=== PATIENT | male | born 1940 | race Caucasian/White ===

== ENCOUNTER → 2017-07-30 | Outpatient (CLI) | payer OTHER ==
[~2017-07-30] MED LIST: ASPI325T39 PO; CHERRY PACK PO; CLB/200 PO; HYDR-5688 PO; OXYC20TA50 PO; REGADENOSON 0.4 MG/5 ML SYR ONE; SENNTAB23 PO; WHEAPOW13 PO
--- NOTE | 2017-07-31 09:18 | MYOCARDIAL PERFUSION SCAN ---
REFERRING PHYSICIAN: Mark Anthony Andrade DO REASON FOR STUDY: Aortic stenosis, atrial fibrillation, shortness of breath. DESCRIPTION OF PROCEDURE: The patient underwent a standard Lexiscan stress ECG. The final report is under separate cover. TECHNIQUE: For the stress portion of the study, 32.4 mCi of technetium-99m Cardiolite IV was injected at 11:25 a.m. on 07/30/2017. Thirty minutes following the injection, imaging of the heart was performed in multiple projections. For the rest portion of the study 10.3 mCi of technetium-99m Cardiolite was injected IV at 0925 a.m. One hour following the injection, imaging of the heart was performed using the same projections. The raw data reveals mild motion artifact on the rest images. There also appears to be extensive diaphragmatic attenuation. Perfusion images, there is a small in size, mild in intensity, distal anterior apical defect consistent with a mild degree of distal LAD ischemia. Quantitative analysis was performed. The sum stress score is 2. The summed difference score was 0 suggesting a relatively normal study. Gated SPECT was performed. The left ventricle is dilated at 104, with end-diastolic volume of 104 mL. The calculated ejection fraction was 51%. There were no obvious regional wall motion abnormalities. Visually there was no obvious transient ischemic dilatation. IMPRESSION: 1. Small in size, mild in intensity, distal anterior apical defect consistent with a mild degree of distal LAD ischemia. 2. Dilated left ventricle with an end-diastolic volume of 104 mL with low normal left ventricular systolic function and a calculated ejection fraction of 51%.
== END | disposition home or self-care (01) ==
LOC: C.NUCL 08:52
PROVIDERS: ATTEND Internal Medicine Cardiovascular Disease
DX: I35.0 Nonrheumatic aortic (valve) stenosis (principal); I48.91 Unspecified atrial fibrillation

== ENCOUNTER 2017-10-08 06:16 | Inpatient (IN) | payer OTHER ==
[2017-09-03 08:00] VITALS: BMI 43.0
--- NOTE | 2017-09-04 09:00 | PAT Medication Instructions ---
Service Date Sep 04, 2017. Current Home Medication List Apixaban (Eliquis), 5 MG PO BID Hydrocodone/Acetaminophen 5MG/325MG (Belford 5MG/325MG), 1-2 TABLETS PO Q4 PRN for Pain Lisinopril (Zestril), 5 MG PO QAM Metformin Hcl (Glucophage), 500 MG PO BID Metoprolol Succinate (Toprol Xl), 50 MG PO HS Multivitamin (Multivitamin), 1 TAB PO QAM Medication Instructions For Your Scheduled Surgery -Follow the instructions from Dr. Andrade and Dr. Rodríguez: Apixaban (Eliquis), 5 MG PO BID - Hold the following medications the morning of surgery: Lisinopril (Zestril), 5 MG PO QAM Metformin Hcl (Glucophage), 500 MG PO BID Multivitamin (Multivitamin), 1 TAB PO QAM - Take the following medications the morning of surgery with a sip of water: Hydrocodone/Acetaminophen 5MG/325MG (Belford 5MG/325MG), 1-2 TABLETS PO Q4 PRN for Pain (if needed, can be taken up t four hours before surgery) - Take the following medications as scheduled the night before surgery: Hydrocodone/Acetaminophen 5MG/325MG (Belford 5MG/325MG), 1-2 TABLETS PO Q4 PRN for Pain (if needed) Metformin Hcl (Glucophage), 500 MG PO BID Metoprolol Succinate (Toprol Xl), 50 MG PO HS If you have any questions please call us at [phone] or [phone] or [phone]
--- NOTE | 2017-09-04 10:06 | DIAGNOSTIC IMAGING REPORT ---
CHEST 2 VIEWS ROUTINE HISTORY: 77 years-old Male PAT preoperative exam. No acute chest complaints COMPARISON: Chest radiograph 06/09/2013 TECHNIQUE: PA and lateral views of the chest FINDINGS: Cardiac silhouette is again mildly enlarged. Mild pulmonary vascular congestion without overt pulmonary edema. There is no pneumothorax, pleural effusion, or focal airspace consolidation. Linear subsegmental left basilar opacities suggest atelectasis or scarring. Degenerative changes of the shoulders and spine. IMPRESSION: No acute process. The above report was generated using voice recognition software. It may contain grammatical, syntax or spelling errors. Electronically signed by: Jose Francisco Adkins M.D. 09/04/2017 10:04 AM Dictated Date/Time: 09/04/2017 10:03 AM
[2017-09-04 10:24] LABS: BASO % 0.3 %; BASO ABS # 0.02 K/uL (0-0.2); EOS % 1.4 %; HEMATOCRIT 43.4 % (42-52); HEMOGLOBIN 14.8 g/dL (14.0-18.0); IG# 0.01 K/uL (0.00-0.02); LYMPH % 39.5 %; MEAN CELL VOLUME 92.3 fL (80-100); MEAN CORPUSCULAR HEMOGLOBIN 31.5 pg (25-34); MEAN CORPUSCULAR HGB CONC 34.1 g/dl (32-36); MEAN PLATELET VOLUME 9.5 fL (7.4-10.4); MONO ABS # 0.71 K/uL (0.11-0.59); NEUT % 48.7 %; NEUT ABS # 3.44 K/uL (1.4-6.5); PLATELET COUNT 215 K/uL (130-400); RED CELL DISTRIBUTION WIDTH SD 44.1 fL (36.4-46.3); WHITE BLOOD COUNT 7.08 K/uL (4.8-10.8)
[2017-09-04 10:33] LABS: CALCIUM 9.3 mg/dl (8.5-10.1); CREATININE 1.07 mg/dl (0.60-1.40); POTASSIUM 4.7 mmol/L (3.5-5.1)
[2017-09-04 10:37] LABS: PTT PATIENT 31.5 SECONDS (21.0-31.0)
--- NOTE | 2017-10-07 09:45 | HISTORY & PHYSICAL EXAMINATION ---
DATE OF ADMISSION: 10/08/2017 CHIEF COMPLAINT: Primary osteoarthritis of the left shoulder. HISTORY OF PRESENT ILLNESS: Luís is a pleasant 77-year-old male who has been dealing with a several year history of increasing left shoulder pain. X-rays and clinical examination have been diagnostic for primary osteoarthritis of the left shoulder. He has had injections in the past, which have helped, but unfortunately they wear off quickly. He has limited range of motion of his shoulder at this point. He is having more and more pain. He is having trouble sleeping at night. 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 He has elected to proceed with a left total shoulder arthroplasty. PAST MEDICAL HISTORY: Significant for vague heart disease without any history of DE, arrhythmia, or stent placement. Past medical history is also significant for [id number] diabetes and hypertension. PAST SURGICAL HISTORY: Significant for carpal tunnel release and bilateral total knee arthroplasties by Dr. Molina in 2013. ALLERGIES: None. MEDICATIONS: Include lisinopril, metformin, Eliquis, metoprolol, and Vicodin for pain. FAMILY HISTORY: Denies. SOCIAL HISTORY: He is , has 5 kids. Never drinks. He is very active. REVIEW OF SYSTEMS: He complains of left shoulder pain. All other pertinent review of systems are negative. PHYSICAL EXAMINATION: GENERAL: He is awake, alert, and oriented x3. He is in no apparent distress. He is very pleasant. HEENT: Pupils are equal, round, reactive to light. Extraocular motion intact. Oral mucosa is pink and moist. HEART: Regular rate per radial pulse. LUNGS: Maren symmetrically bilaterally with no audible breath sounds. ABDOMEN: Soft, nontender, nondistended. MUSCULOSKELETAL: On physical examination of the left shoulder, he has limited range of motion about 60 degrees of forward elevation and 30 degrees of abduction. Passive I can get him little further, but he has a lot of crepitus through range of motion. He has 5/5 muscle strength to full can test and external rotation. Negative belly press test. He has a lot of tenderness to palpation of the anterior glenohumeral joint line. IMAGING DATA: X-rays of the left shoulder do show advanced osteoarthritis with flattening of the humeral head and a little bit of posterior wear on the glenoid. There is joint space narrowing and [id number] articulation. IMPRESSION: Primary osteoarthritis of the left shoulder. PLAN: We will proceed with a left total shoulder arthroplasty. Postoperatively, he will be placed in an arm sling and kept overnight at the hospital for postoperative medical management. I plan to discharge him to home the following day with [facility]. FABRICIO
[~2017-10-08] VITALS: Ht 165.1 cm; Wt 119.0 kg
[2017-10-08] VITALS (10 sets, daily range): BP systolic 93–159; BP diastolic 60–86; PULSE 64–81; TEMP 36.3–36.8; O2SAT 91–96; Ht 165.1 cm; Wt 119.0 kg
[~2017-10-08 06:16] MED LIST changes: +ACETAMINOPHEN 500 MG TAB PO SCH; +APIX1TAB3 PO; -ASPI325T39 PO; +CEFAZOLIN 2000MG IV PUSH 15 ML IV SCH; -CHERRY PACK PO; -CLB/200 PO; +FAMOTIDINE 20 MG TAB PO SCH; +GABAPENTIN 300 MG CAP PO SCH; +GLC/500 PO; +LACTATED RINGER'S 1000ML 1,000 ML IV SCH; +LACTATED RINGER'S 1000ML IV SCH; +LISI-729 PO; +METO-217 PO; +MULT-506 PO; -OXYC20TA50 PO; -REGADENOSON 0.4 MG/5 ML SYR ONE; +ROPIVACAINE 5MG/ML 30 ML 150 MG, BUPIVACAINE 0.5% MPF INJ 30 ML, EpINEphrine HCL INJ 0.... INFIL SCH; -SENNTAB23 PO; -WHEAPOW13 PO
--- NOTE | 2017-10-08 06:39 | History & Physical Bridge Note ---
H&P Re-Evaluation Bridge Note: I have examined the patient, reviewed the History & Physical and in the interval since the performance of the History & Physical I have noted the following changes of clinical significance: No changes noted
[2017-10-08] MEDS ORDERED: ROPIVACAINE 0.5% 5 MG/ML 30 ML VIAL ONE (06:43)
[2017-10-08] MEDS ORDERED: EpINEphrine INJ 1MG/ML AMP 1 MG/ML AMP ONE (06:43)
[2017-10-08] MEDS ORDERED: DEXAMETHASONE SOD INJ 4 MG/ML VIAL ONE (06:43)
[2017-10-08] MEDS ORDERED: MIDAZOLAM HCL 1 MG/ML 2ML VIAL ONE ×2 (07:56→09:10)
[2017-10-08] MEDS ORDERED: FENTANYL CITRATE INJ 50 MCG/1 ML 2 ML VIAL ONE (07:56)
[2017-10-08] MEDS ORDERED: FENTANYL CITRATE INJ 50 MCG/1 ML 2 ML VIAL IV PRN (08:30)
[2017-10-08] MEDS ORDERED: EpHEDrine SULFATE INJ 50 MG/ML AMP IV PRN (08:30)
[2017-10-08] MEDS ORDERED: ATROPINE SULFATE 0.1 MG/ML 5ML SYR IV PRN (08:30)
[2017-10-08] MEDS ORDERED: ONDANSETRON INJ 2 MG/ML 2 ML VIAL IV PRN ×2 (08:30→11:00)
[2017-10-08] MEDS ORDERED: PROMETHAZINE HCL INJ 6.25 MG in SODIUM CHLORIDE 0.9% 50ML 50 ML IV PRN (08:30)
[2017-10-08] MEDS ORDERED: BACITRACIN 50000 UNIT VIAL ONE (09:06)
[2017-10-08] MEDS ORDERED: ORTHO JOINT ANESTHETIC ONE (09:06)
[2017-10-08] MEDS ORDERED: ESMOLOL HCL 10 MG/ML 10 ML VIAL ONE (09:30)
[2017-10-08] MEDS ORDERED: PHENYLEPHRINE HCL INJ 10 MG/ML VIAL ONE (10:17)
[2017-10-08] MEDS ORDERED: PHENYLEPHRINE 100MCG/ML 5ML SYR ONE (10:17)
[2017-10-08] MEDS ORDERED: GLYCOPYRROLATE INJ 0.2 MG/ML VIAL ONE (10:17)
[2017-10-08] MEDS ORDERED: METOPROLOL TARTRATE 1 MG/ML VIAL ONE (10:17)
[2017-10-08] MEDS ORDERED: NEOSTIGMINE METHYLSULFATE 5 MG/5 ML SYR ONE (10:17)
[2017-10-08] MEDS ORDERED: LIDOCAINE HCL 2% 2 ML VIAL (20MG/ML) ONE (10:17)
[2017-10-08] MEDS ORDERED: PROPOFOL IV EMULSION 10 MG/ML 20 ML VIAL ONE ×2 (10:17→13:53)
[2017-10-08] MEDS ORDERED: ONDANSETRON INJ 2 MG/ML 2 ML VIAL ONE (10:17)
[2017-10-08] MEDS ORDERED: ROCURONIUM BROMIDE 10 MG/ML 5 ML VIAL ONE (10:38)
--- NOTE | 2017-10-08 10:58 | [facility] Post Operative Brief Note ---
Immediate Operative Summary Operative Date Oct 08, 2017. Pre-Operative Diagnosis Primary osteoarthritis left shoulder Post-Operative Diagnosis Primary osteoarthritis left shoulder with rotator cuff tear Procedure(s) Performed Left Reverse Total Shoulder Arthroplasty Surgeon Dr. Rodríguez Top And Seat Cover Fitter Surgeon(s) Cem Ordaz PA-C Estimated Blood Loss 250cc Findings Consistent with Post-Op Diagnosis Specimens A. Left humeral head Anesthesia Type General Regional
[2017-10-08] MEDS ORDERED: NALOXONE HCL 0.4 MG/1 ML VIAL/CARP IV PRN (11:00)
[2017-10-08] MEDS ORDERED: MAGNESIUM HYDROXIDE SUSP 30 ML UDC PO PRN (11:00)
[2017-10-08] MEDS ORDERED: METOCLOPRAMIDE HCL INJ 5 MG/ML 2 ML VIAL IV PRN (11:00)
[2017-10-08] MEDS ORDERED: GLUCOSE 40% GEL 15 GM TUBE PO PRN (11:00)
[2017-10-08] MEDS ORDERED: DEXTROSE 50% 50 ML SYR IV PRN (11:00)
[2017-10-08] MEDS ORDERED: GLUCAGON FOR INJ 1 MG VIAL SQ PRN (11:00)
[2017-10-08] MEDS ORDERED: SOD PHOSPHATE/SOD BIPHOSPHATE ENEMA 132 ML BTL PR PRN (11:00)
[2017-10-08] MEDS ORDERED: MoRPHine SULFATE 4 MG/ML 1 ML CARP\\VIAL IV PRN (11:00)
[2017-10-08] MEDS ORDERED: GLUCOSE 10 TABS/TUBE PO PRN (11:00)
[2017-10-08] MEDS ORDERED: CARBOHYDRATES FOR HYPOGLYCEMIA PO PRN (11:00)
[2017-10-08] MEDS ORDERED: BISACODYL 10 MG SUPP PR PRN (11:00)
--- NOTE | 2017-10-08 11:51 | Discharge Instructions ---
Discharge Instructions Date of Service Oct 08, 2017. Admission Reason for Admission: Left Shoulder Degenerative Joint Disease Discharge Discharge Diagnosis / Problem: Left Reverse Total Shoulder Discharge Goals Goal(s): Decrease discomfort, Improve function Activity Recommendations Activity Limitations: as noted below . Instructions / Follow-Up Instructions / Follow-Up Activity and Therapy Recommendations: * Wear your sling for 6 weeks, unless otherwise instructed. You may remove your sling to shower and to dress, but otherwise, you should be in your sling at all times, including while sleeping * The shoulder replacement is very stable and you can use your hand while in the sling * Physical Therapy should start about 3-5 days from your day of surgery. Therapy will last about 8-12 weeks * You were shown a series of exercises in the hospital. Do these exercises daily including the exercises you were shown in physical therapy. Medications: * Narcotic You will likely be sent home from the hospital with a prescription for the narcotic pain medication that worked best throughout your stay. * Other medications may be prescribed for specific circumstances. If you have any questions, please call the office at . * Resume previous home medications unless otherwise instructed Dressing Care: If the incision is not draining then you may leave the ryan open to air. If there is a little bit of drainage or if the ryan are getting stuck on your clothing then cover the incision with a dry dressing. The ryan will be removed at your 2 week follow-up appointment. Showering: You may shower 5 days from the day of surgery. Let the soapy shower water run over the ryan and pat them dry. Do not scrub or soak the incision. Things To Watch For: * Drainage from the incision site that occurs more than one week after your surgery. * Increased redness at the incision site. * Fever above 102 degrees Fahrenheit. * Unusual chest pain or shortness of breath. * Call [facility] at with any of the above problems Follow-Up Visit: Follow-up with Dr. Rodríguez 2 weeks after your day of surgery. An appointment was probably scheduled when you signed-up for surgery in the office. If you have any questions call Office Instructions: More detailed instructions as well as Frequently Asked Questions were provided in a folder by our office when you signed-up for surgery. Please review these instructions when you get home. If you have any further questions or concerns, please feel free to call the office at [phone] Current Hospital Diet Patient's current hospital diet: Regular Diet Discharge Diet Recommended Diet: Regular Diet Procedures Procedures Performed: Left Reverse Total Shoulder Arthroplasty Pending Studies Studies pending at discharge: no Medical Emergencies . Who to Call and When: Medical Emergencies: If at any time you feel your situation is an emergency, please call 911 immediately. . Non-Emergent Contact Non-Emergency issues call your: Surgeon Call Non-Emergent contact if: wound has increased drainage, wound has increased redness . "Provider Documentation" section prepared by Carlos Rodríguez. .
[2017-10-08] MEDS ORDERED: PHARMACY GLYCEMIC MGMT CONSULT PRN (12:03)
--- NOTE | 2017-10-08 12:33 | DIAGNOSTIC IMAGING REPORT ---
ADDENDUM Second sentence of the impression should read: When the patient is able, CT study of the proximal to mid humerus is suggested. Electronically signed by: Jaiden Trivedi M.D. 10/08/2017 12:36 PM Dictated Date/Time: 10/08/2017 12:36 PM ORIGINAL REPORT L SHOULDER MIN 2 VIEWS ROUTINE CLINICAL HISTORY: Post shoulder surgery COMPARISON: None. DISCUSSION: Anatomic alignment post postoperative evaluation linear lucency mid humeral shaft medially distal to the humeral metallic prosthetic. Possibility of technical artifact versus nondisplaced cortical fracture must be considered. When the patient is able, CT study of this region is suggested. There is good contact between all remaining components of the study between metallic and bony components. IMPRESSION: Overlap artifact versus nondisplaced linear cortical fracture mid left humeral shaft immediately distal to the humeral prosthetic. When the patient is able, paste CT study of the proximal to mid humerus is suggested. Note: This study will be called to the floor. The above report was generated using voice recognition software. It may contain grammatical, syntax or spelling errors. Electronically signed by: Jaiden Trivedi M.D. 10/08/2017 12:31 PM Dictated Date/Time: 10/08/2017 12:24 PM
--- NOTE | 2017-10-08 13:24 | OPERATIVE REPORT ---
DATE OF OPERATION: 10/08/2017 PREOPERATIVE DIAGNOSIS: Primary osteoarthritis of the left shoulder. POSTOPERATIVE DIAGNOSIS: Primary osteoarthritis of the left shoulder with a rotator cuff tear. PROCEDURE: Left reverse total shoulder arthroplasty. SURGEON: Dr. Carlos Rodríguez. WORLD HISTORY TEACHER: Cem Ordaz PA-C, whose assistance was necessary for retraction and closure. ANESTHESIA: General with a left interscalene nerve block. COMPLICATIONS: None. CONDITION: Stable to PACU. IMPLANTS USED: I used a [employer] comprehensive reverse left shoulder arthroplasty system with a size 14 mini pressfit stem, a 28 mm baseplate, a 41 mm standard eccentric glenosphere, a 30 mm central screw, 2 peripheral locking screws and a 41 mm +3 polyethylene bearing on a 44 mm humeral tray. No cement was used during the case. INDICATIONS: Luís is a pleasant 77-year-old male who presented to my office with chronic increasing left shoulder pain. X-rays and clinical examination were diagnostic for primary osteoarthritis of the left shoulder. After failing conservative treatment, he elected to undergo a left total shoulder arthroplasty with possible reverse. DESCRIPTION OF PROCEDURE: On 10/08/2017, he arrived at [facility] for the above procedure. He was seen in the preop holding area and the operative extremity was identified and signed. He was given a preoperative antibiotic, a left interscalene nerve block and taken back to the operating room, laid on the table in supine position and put under general anesthesia. He was put into the beachchair position. The left shoulder was prepped and draped in sterile fashion. Time-out was done. The patient's operative extremity was properly identified. A deltopectoral approach was used. Dissection was taken down through the fascia and the anterior shoulder was exposed. The biceps tendon was absent and had been traumatically tenotomized. The subscapularis was mostly torn. I was able to elevate it mostly off the lesser tuberosity. There was about a 90% partial tear of the articular side of the supraspinatus. The cuff tissue was very thin. At this point, I decided to proceed with reverse total shoulder arthroplasty. The proximal humerus was subluxated out of the wound. A canal finding reamer was sent down the center of the humeral canal. Sequential reaming up to a size 14 reamer was done. Off that reamer, a proximal humeral resection guide was placed and the proximal humerus was resected at 135 degrees of inclination and 25 degrees of retroversion. The head was removed. Surrounding osteophytes were removed. The glenoid was then exposed. Time was spent doing a complete circumferential capsular and labral release. The [employer] signature guide was then snapped on to the anterior glenoid and a guide pin was placed for the reverse total shoulder arthroplasty hole. A 28 mm base plate reamer was then used and the glenoid was reamed. A 28 mm baseplate was then impacted into place. A 30 mm central screw was placed followed by superior and inferior locking screws. A 41 mm eccentric standard glenosphere was then impacted into place. The proximal humerus was then exposed. Sequential broaching up to size 14 broach was done. A standard humeral tray was trialed. The shoulder felt a little bit loose. A +3 humeral tray was then trialled and it gave much better stability. The shoulder was then dislocated. The broach was removed. The final size 14 press-fit stem was then impacted into place. The 41 mm +3 poly was snapped onto the humeral tray and the ring lock mechanism was engaged. The humeral tray was then impacted on the humeral stem. The shoulder was reduced, brought through a full range of motion and felt to be stable. The subscapularis was then tenodesed back to the lesser tuberosity with transosseous FiberWire sutures. Surrounding soft tissues were injected with 100 mL of an orthopedic pain control cocktail. The wound was then irrigated with 3 liters normal saline solution with bacitracin. The axillary nerve was palpated. The shoulder was brought through a full range of motion and felt to be stable. Hemostasis was controlled. The skin was then closed with 2-0 Vicryl, 3-0 V-Loc suture and ryan. He was then placed in a soft dressing and a regular arm sling. He was then extubated, transferred to [facility] and taken to the postanesthesia care unit in stable condition. He tolerated the procedure well. I attest to the content of the Intraoperative Record and any orders documented therein. Any exception s are noted below.
--- NOTE | 2017-10-08 13:33 | Anesthesiology Progress Note ---
Anesthesia Post Op Note Date & Time Oct 08, 2017 at 13:33 Vital Signs Pain Intensity: 0 Vital Signs Past 12 Hours Date Time Temp Pulse Resp B/P (MAP) Pulse Ox O2 Delivery O2 Flow Rate FiO2 10/08/17 13:15 36.4 64 18 106/67 (80) 93 Nasal Cannula 3.0 10/08/17 12:45 36.8 71 18 93/60 (71) 93 Nasal Cannula 3.0 10/08/17 12:45 93 Nasal Cannula 3.0 10/08/17 12:45 93 Nasal Cannula 3.0 10/08/17 12:36 36.4 66 20 106/72 (82) 100 Nasal Cannula 4 10/08/17 12:20 36.4 68 23 98/65 (80) 97 Nasal Cannula 4 10/08/17 12:10 36.1 68 23 104/67 99 Nasal Cannula 4 10/08/17 12:00 63 13 95/64 100 Oxymask 10 10/08/17 11:50 73 23 107/68 100 Oxymask 10 10/08/17 11:40 72 17 94/65 99 Oxymask 10 10/08/17 11:30 75 19 114/62 99 Oxymask 10 10/08/17 11:22 36.6 74 20 127/87 95 Oxymask 10 10/08/17 06:40 36.6 76 20 159/86 94 Room Air Notes Mental Status: alert / awake / arousable, participated in evaluation Pt Amnestic to Procedure: Yes Nausea / Vomiting: adequately controlled Pain: adequately controlled Airway Patency, RR, SpO2: stable & adequate BP & HR: stable & adequate Hydration State: stable & adequate Anesthetic Complications: no major complications apparent Block working well in pacu
[2017-10-08] MEDS: TRANEXAMIC ACID INJ 1,000 MG x 2 Bags IV SCH ×4 (13:42→13:44)
[2017-10-08] MEDS ORDERED: INSULIN GLARGINE SOLOSTAR 100 UNITS/ML 3 ML PEN SC ONE ×2 (14:00→21:00)
--- NOTE | 2017-10-08 14:16 | Pharmacy Progress Note ---
Pharmacy Glycemic Short Note 2 Date of Service Oct 08, 2017. OUTPATIENT ANTIDIABETIC REGIMEN: * Metformin 500 mg BID ASSESSMENT: * 77 yo male admitted for elective left should arthroplasty, POD #0, unknown outpatient control * Received dexamethasone 4 mg IV x 1 in OR, anticipate increased insulin resistance * Will give 1x lantus dose stress of 2- 40 units and add sliding scale tonight for additional coverage * Start novolog sliding scale weight based stress of 2 * Accuchecks added at 0000,0400 for additional coverage PLAN FOR INPATIENT GLYCEMIC CONTROL: * Hold outpatient oral diabetes medications * Basal insulin * Lantus 40 units x 1 then HS sliding scale as follows: * <GD=497: no dose * 140-180: 10 units * >180: 20 units * Bolus insulin * NovoLog per scale ACHS or Q6hrs while NPO * Goal Range: Low 120 mg/dL - High 160 mg/dL * Correction Factor: 20 mg/dL/unit * Nutritional / Prandial insulin per carb ratio of 1 unit per 10 grams CHO consumed
[2017-10-08] MEDS: ACETAMINOPHEN IV 1,000 MG in EMPTY BAG 0 ML IV SCH ×2 (14:17→21:33)
[2017-10-08] MEDS: CEFAZOLIN IV 2,000 MG in SYRINGE 0 ML IV SCH ×2 (14:34→21:33)
[2017-10-08] MEDS: POTASSIUM CHLORIDE INJ 10 MEQ in SODIUM CHLORIDE 0.9% 1000ML 1,000 ML IV SCH (14:38)
[2017-10-08] MEDS: INSULIN ASPART 100 UNITS/ML 3 ML PEN SC SCH ×3 (15:02→21:36)
[2017-10-08] MEDS ORDERED: METOPROLOL SUCC 50MG EXT REL TAB PO SCH (21:00)
[2017-10-08] MEDS ORDERED: SENNA 8.6 MG TAB PO SCH (21:00)
[2017-10-08] MEDS: APIXABAN 5 MG TAB PO SCH (21:28)
[2017-10-08] MEDS: DOCUSATE SODIUM 100 MG CAP PO SCH (21:28)
[2017-10-08] MEDS: OXYCODONE HCL IR 5 MG TAB (IMMEDIATE RELEASE) PO PRN (21:29)
[2017-10-09 00:05] VITALS: O2SAT 96
[2017-10-09] MEDS: POTASSIUM CHLORIDE INJ 10 MEQ in SODIUM CHLORIDE 0.9% 1000ML 1,000 ML IV SCH ×2 (00:29→09:36)
[2017-10-09 03:07] VITALS: BP 134/80; PULSE 78; TEMP 36.3; O2SAT 94
[2017-10-09] MEDS: INSULIN ASPART 100 UNITS/ML 3 ML PEN SC SCH ×3 (04:00→08:45)
[2017-10-09] MEDS: ACETAMINOPHEN IV 1,000 MG in EMPTY BAG 0 ML IV SCH (06:13)
[2017-10-09] MEDS: OXYCODONE HCL IR 5 MG TAB (IMMEDIATE RELEASE) PO PRN ×2 (06:20→10:21)
[2017-10-09 06:43] LABS: HEMATOCRIT 40.8 % (42-52); HEMOGLOBIN 13.8 g/dL (14.0-18.0); MEAN CELL VOLUME 92.7 fL (80-100); MEAN CORPUSCULAR HEMOGLOBIN 31.4 pg (25-34); MEAN CORPUSCULAR HGB CONC 33.8 g/dl (32-36); MEAN PLATELET VOLUME 9.8 fL (7.4-10.4); PLATELET COUNT 200 K/uL (130-400); RED CELL DISTRIBUTION WIDTH CV 12.9 % (11.5-14.5); RED CELL DISTRIBUTION WIDTH SD 43.3 fL (36.4-46.3); WHITE BLOOD COUNT 12.07 K/uL (4.8-10.8)
[2017-10-09 06:54] VITALS: BP 164/93; PULSE 81; TEMP 36.5; O2SAT 92
[2017-10-09] MEDS ORDERED: RXC5 PO (07:06)
[2017-10-09 07:25] LABS: CALCIUM 8.7 mg/dl (8.5-10.1); CREATININE 1.05 mg/dl (0.60-1.40)
--- NOTE | 2017-10-09 07:25 | DISCHARGE SUMMARY ---
DISCHARGE DIAGNOSIS: Primary osteoarthritis of the left shoulder with unexpected rotator cuff tear. PROCEDURE: Left reverse total shoulder arthroplasty on 10/08/[address] Carlos Rodríguez. DISCHARGE INSTRUCTIONS: 1. Oxycodone 5-10 mg every 4 hours as needed for pain. 2. Eliquis 5 mg twice a day. 3. Zestril 5 mg daily. 4. Glucophage 500 mg twice a day. 5. Toprol 50 mg at night. 6. Daily multivitamin. 7. Left arm sling for 6 weeks. 8. Follow up with Dr. Rodríguez in 2 weeks. 9. Call the office of Dr. Rodríguez with any questions or concerns. HOSPITAL COURSE: Luís is a pleasant 77-year-old male who presented to my office with chronic increasing left shoulder pain. X-rays were diagnostic for primary osteoarthritis of the left shoulder. After failing conservative treatment, he elected to undergo a reverse left shoulder arthroplasty. On 10/08/2017, he arrived at [facility] and underwent a reverse shoulder arthroplasty without complications. I was not expecting to see the rotator cuff tear that I saw during the procedure. Postoperatively, he was placed in an arm sling and discharged to general orthopedic floor. His hospital course was uneventful. On postop day #1, his H and H was stable at 13.8 and 40.8. He was seen by physical therapy and able to do hand, wrist, elbow and pendulum exercises. His pain was well controlled. He was subsequently discharged to home with [facility] and the above instructions. To note, the postoperative x-rays did show a fracture line at the base of the prosthesis. I discussed this with him and his at bedside. It is not going to change his postop recovery except for the fact, I am going to keep him in a sling for 6 weeks instead of 3 weeks. Otherwise, he can still start with physical therapy this week.
--- NOTE | 2017-10-09 07:45 | PROGRESS NOTE ---
DATE: 10/09/2017 CHIEF COMPLAINT: Status post reverse left shoulder arthroplasty postop day #1 in progress. SUBJECTIVE: Luís was seen and examined at bedside today. Overall, he is doing fairly well. He says he feels the block is wearing off some, but he is not having much pain. He was able to get some sleep last night, has no complaints. PHYSICAL EXAMINATION: LEFT SHOULDER: The dressing is clean and dry. He is wearing a sling as instructed. His radial, median and ulnar nerves were checked and intact at his wrist. His axillary nerve was not checked. VITAL SIGNS: All stable on room air. GENERAL: He is voiding on his own. DATA: He has an H and H today of 13.8 and 40.8. His glucose is 130. X-RAYS: X-rays of the left shoulder show the prosthesis to be in anatomic alignment. However, there is a slight fracture line longitudinally at the base of the prosthesis. IMPRESSION: Status post left reverse shoulder arthroplasty. PLAN: At this point, he is doing as well as expected. We will keep him on oxycodone for pain control. He will be seen by physical therapy today to do hand, wrist, elbow and pendulum exercises. He can be discharged to home later today with [facility]. I did talk to both he and his about the fracture seen on x-ray. I am going to keep him in a sling for 6 weeks instead of 3 weeks, but otherwise he is not going to change his postoperative recovery. The implant is stable and this should heal just fine.
[2017-10-09] MEDS ORDERED: INSULIN GLARGINE SOLOSTAR 100 UNITS/ML 3 ML PEN SC ONE (08:00)
[2017-10-09 08:24] VITALS: BP 164/93; PULSE 81; TEMP 36.5; O2SAT 92
[2017-10-09] MEDS: APIXABAN 5 MG TAB PO SCH (08:37)
[2017-10-09] MEDS: DOCUSATE SODIUM 100 MG CAP PO SCH (08:37)
[2017-10-09] MEDS ORDERED: LISINOPRIL 5 MG TAB PO SCH (09:00)
[2017-10-09] MEDS ORDERED: MULTIVITAMIN TAB PO SCH (09:00)
== END 2017-10-09 10:53 | disposition home health service (06) | DRG 483 ==
LOC: C.ACU 06:16 → C.3E 11:00 → ENRESERV 12:03
PROVIDERS: ADMIT Orthopaedic Surgery; ATTEND Orthopaedic Surgery
PROC: 0RRK00Z Replacement of Left Shoulder Joint with Reverse Ball and Socket Synthetic Substitute, Open Approach (ICD-10-PCS; principal; 2017-10-08 09:00)
DX: M19.012 Primary osteoarthritis, left shoulder (principal); M96.622 Fracture of humerus following insertion of orthopedic implant, joint prosthesis, or bone plate, left arm; S46.012A Strain of muscle(s) and tendon(s) of the rotator cuff of left shoulder, initial encounter; E11.9 Type 2 diabetes mellitus without complications; I11.9 Hypertensive heart disease without heart failure; Z79.899 Other long term (current) drug therapy; Z79.84 Long term (current) use of oral hypoglycemic drugs; Z79.01 Long term (current) use of anticoagulants; Z79.891 Long term (current) use of opiate analgesic; Z96.653 Presence of artificial knee joint, bilateral; X58.XXXA Exposure to other specified factors, initial encounter; Y92.239 Unspecified place in hospital as the place of occurrence of the external cause; Y83.1 Surgical operation with implant of artificial internal device as the cause of abnormal reaction of the patient, or of later complication, without mention of misadventure at the time of the procedure; Y99.8 Other external cause status

== ENCOUNTER 2019-04-06 06:30 | Observation (INO) ==
[2019-04-06] MEDS ORDERED: HEPARIN (PORCINE) 1000 UNIT/ML 10 ML (CATH LAB USE ONLY) ONE (08:19)
[2019-04-06] MEDS ORDERED: NiCARDipine HCL INJ 2.5 MG/ML 10 ML AMP ONE (08:19)
[2019-04-06] MEDS ORDERED: MIDAZOLAM HCL 1 MG/ML 2ML VIAL ONE ×2 (08:20→09:17)
[2019-04-06] MEDS ORDERED: NITROGLYCERIN/D5W 100MCG/ML 20ML SYR ONE (08:20)
[2019-04-06] MEDS ORDERED: fentaNYL citrate 100 MCG/2 ML VIAL ONE (08:20)
--- NOTE | 2019-04-06 08:22 | History & Physical Bridge Note ---
Date of Service April 06, 2019 History & Physical Bridge Note I have examined the patient, reviewed the History & Physical and in the interval since the performance of the History & Physical I have noted the following changes of clinical significance: no changes noted
--- NOTE | 2019-04-06 08:22 | Pre Anesthesia Assessment ---
Date of Service April 06, 2019 Pre Sedation Assessment Vital Signs Temp Pulse Resp BP Pulse Ox 04/06/19 07:07 97.7 F 82 16 172/109 H 96 Cardiovascular + irregularly irregular Respiratory normal respiratory effort, lungs clear to auscultation Pre-Sedation Airway Assessment Smoking Status: Never smoker Hx Sleep Apnea: No Short, Thick Neck: Yes Thyromental Distance: < 3.5 Finger Breadths Oral Cavity: + Dentures Mallampati Class: III ASA: ASA3 NPO Status Date of Last Intake of Fluids: 04/05/19 Time of Last Intake of Fluids: 19:00 Date of Last Intake of Solid Food: 04/05/19 Time of Last Intake of Solid Foods: 19:00 Procedure Planning Contraindications for Sedation: none Current Medications Reviewed: Yes Notes The planned sedation has been discussed with the patient. Informed Consent was obtained. I have identified the patient, determined the appropriateness of sedation and have assessed the patient immediately prior to the procedure. All medicine(s) and interventions are by my order.
[2019-04-06 08:36] LABS: iSTAT Creatinine 0.9 mg/dl (0.6-1.3); iSTAT Ionized Calcium 1.26 mmol/l (1.12-1.32); iSTAT Potassium 5.1 mEq/L (3.3-5.0)
[2019-04-06] MEDS ORDERED: ATROPINE SULFATE 0.1 MG/ML 10ML SYR IV ONE ×2 (09:15→09:18)
[2019-04-06] MEDS ORDERED: DOPamine 400MG / 250ML D5W (CATH LAB USE ONLY) ONE (09:16)
--- NOTE | 2019-04-06 09:44 | Post Anesthesia Assessment ---
Date of Service April 06, 2019 Post Sedation Assessment Vital Signs Temp Pulse Resp BP Pulse Ox 04/06/19 07:07 97.7 F 82 16 172/109 H 96 Recovery Score Activity: Moves 4 extremities Respiration: Deep Breath/Cough Circulation: +/-20% PreAnes Value Consciousness: Fully Awake Oxygen Saturation: O2 needed for >90% Discharge Sedation Level of Care: Fast Track Phase II Post Sedation Plan On clinical assessment, the patient appears to have tolerated the sedation without complications. Patient is recovering as anticipated. Patient will continue to be monitored by nursing and may be discharged when sedation discharge criteria are met per below protocol. Upon Completions of procedure up to 15 minutes continue every 5 minute vital signs and the P.A.R. score; then discharge to a Phase I or Fast Track to Phase II per the following guidelines: * Discharge Patient to appropriate Phase II area if PAR is 8 or greater or return to pre- procedure baseline. The post - procedure orders will be as directed. * If PAR score is less than 8 or not return to pre-procedure baseline then patient will follow Phase I monitoring till PAR is reached for Phase II. The Phase I may be done in procedure room or may call to secure a Phase I area. * If naloxone or flumazenil are used for reversal, hold in Phase I for continued monitoring from when last reversal dose was given for a minimum of 60 minutes or longer pending the nurse and/or physician discretion of patient condition before discharge to Phase II. Please call the Sedation Physician to re-evaluate and complete post-note for discharge to Phase II area. Do NOT discharge from procedure sedation or Phase 1 until post- sedation evaluation note is complete by procedure /sedation MD Sedation Discharge Instructions to be given to the patient at discharge to home.
[2019-04-06 09:47] LABS: iSTAT Arterial Blood Gas HCO3 26 meg/L (19-24); iSTAT Arterial Blood Gas pCO2 46 mmHg (35-46); iSTAT Arterial Blood Gas pH 7.37 (7.35-7.45); iSTAT Arterial Blood Gas pO2 63 mmHg (80-95); iSTAT Carbon Dioxide 28 mEq/l (24-31)
--- NOTE | 2019-04-06 10:02 | Cardiac Catheterization ---
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 Cardiac Status Clinical evaluation leading to the procedure CAD Presenation: Sx unlikely to be ischemic Anginal Classification: CCS III Heart Failure: No Cardiogenic Shock within 24 Hours: No Cardiac Arrest within 24 Hours: No Imaging Studies Past 6 Months: Yes Stress Studies Past 6 Months: No Diagnostic Physicians Name: All Pearson MD Status: Elective Closure Device Percutaneous Entry Location: Radial Closure Device: Radial Band Recommendations: Valve Replacement Intraprocedure Events Significant Disection: No Perforation: No Cardiac Cath Procedure Full Procedure Date April 06, 2019 Pre-Procedure Diagnosis Pre-Procedure Diagnosis: Valvular Disease AUC Score AUC Score: 7 Post-Procedure Diagnosis Post-Procedure Diagnosis: Severe CAD and Elevated Intracardiac Pressures Procedure(s) Performed Procedure(s) Performed: Coronary Angiography and Right Heart Cath Cellophane Worker All Pearson MD Vice President Of Sales(s) Babak Estimated Blood Loss Estimated Blood Loss: 10 Medication(s) Medication(s): Fentanyl, Heparin, Lidocaine 1%, Nicardipine, Nitroglycerin and Versed Summary of Findings Indication: Severe aortic stenosis Access: 6 Fr slender right radial artery, 6 Fr slender right antecubital vein Catheters: [place], diagnostic JR4, JR4 guide Findings: RA 14 RV 59/10 PA 54/30 (38) PAWP 20 PaSat 53% AoSat 91% Thermo CO/CI 4.92/3.1 LM -large caliber vessel, luminal irregularities LAD -large caliber vessel, proximal luminal irregularities, 30% mid segment disease, distal luminal irregularities as wraps around apex. Large first caliber diagonal with 60 to 70% focal "napkin ring" proximal stenosis. Second diagonal without significant disease. Circumflex -small, nondominant, 40% mid segment RCA -dominant, proximal luminal irregularities, 30% mid segment disease, 30% distal disease. Small PDA without significant disease. On initial attempts to cannulize RCA developed inferior ST elevations and bilateral arm/chest pain. Angiography revealed 100% mid segment occlusion which was thought likely secondary to vasospasm/? air embolus. RCA cannulated with JR4 guide. Heparin administered. BMW wire placed into distal vessel. IC nitro and nicardipine administered. Prior to planned aspiration with aspiration catheter ST segment elevation noted to resolve. Repeat angiography revealed ALLIE-3 flow throughout RCA system with no severe residual obstructive disease. No additional intervention undertaken. Arterial Closure: TR band Summary: 1. Single-vessel coronary artery disease - 70% focal stenosis in proximal, large first diagonal 2. Transient, symptomatic mid RCA occlusion thought secondary to vasospasm/questionable air embolus, resolved with IC vasodilators. No obstructive RCA disease. 3. Elevated left and right-sided filling pressures 4. Moderate pulmonary hypertension 5. Preserved cardiac output Recommendations: Follow-up with [facility] for possible TAVR Hemodynamics Rest Ao:: 166/88/121 Final Ao: 151/79/100 LV: -- Recommendations Recommendations: Valve Replacement Specimens Specimens: None Radiation Exposure (mGy) 2296 Contrast (mls) 105 Fluids (cc crystalloids) Fluids (cc crystalloids): 64 Drains Drains: None Anesthesia Moderate Procedural Complication(s) None Disposition PCU I attest to the content of the Intraoperative Record and any orders documented therein. Any exceptions are noted below. PG Care Time/CCT Total # of Minutes Spent Total Time Spent with Patient: Total time spent is greater than 50% in coordination of care (as documented) at patient's floor/unit and/or counseling patient:
[2019-04-06 11:12] LABS: iSTAT Arterial Blood Gas HCO3 27 meg/L (19-24); iSTAT Arterial Blood Gas pCO2 49 mmHg (35-46); iSTAT Arterial Blood Gas pH 7.36 (7.35-7.45); iSTAT Arterial Blood Gas pO2 < 32 mmHg (80-95); iSTAT Carbon Dioxide 29 mEq/l (24-31)
[2019-04-06] MEDS ORDERED: NITROGLYCERIN SL 0.4 MG/TAB TAB SL PRN (11:16)
[2019-04-06] MEDS ORDERED: DEXTROSE 50% 50 ML SYRINGE IV PRN (11:21)
[2019-04-06] MEDS ORDERED: GLUCAGON FOR INJ 1 MG VIAL SQ PRN (11:21)
[2019-04-06] MEDS ORDERED: GLUCOSE 40% GEL 15 GM TUBE PO PRN (11:21)
[2019-04-06] MEDS ORDERED: GLUCOSE 10 TABS/TUBE PO PRN (11:21)
[2019-04-06] MEDS ORDERED: CARBOHYDRATES FOR HYPOGLYCEMIA PO PRN (11:21)
[2019-04-06] MEDS: INSULIN ASPART 100 UNITS/ML 3 ML PEN SC SCH ×3 (13:25→20:50)
--- NOTE | 2019-04-06 15:19 | Electrocardiogram Report ---
Test Reason : Blood Pressure : / mmHG Vent. Rate : 081 BPM Atrial Rate : 104 BPM P-R Int : 000 ms QRS Dur : 092 ms QT Int : 368 ms P-R-T Axes : 000 025 063 degrees QTc Int : 427 ms Atrial fibrillation Abnormal ECG When compared with ECG of 09-OCT-2017 17:30, T wave amplitude has increased in Anterior leads Confirmed by Leoncio Hatch ([id number]) on 04/06/2019 3:18:44 PM Referred By: Rl Pearson Confirmed By:Leoncio Hatch
[2019-04-06] MEDS ORDERED: METOPROLOL SUCC 50MG EXT REL TAB PO SCH (21:00)
[2019-04-07 06:36] LABS: Basophils # (auto) 0.02 K/uL (0-0.2); Basophils % (auto) 0.2 %; Eosinophils # (auto) 0.06 K/uL (0-0.5); Eosinophils % (auto) 0.7 %; Hematocrit (blood only) 44.8 % (42-52); Hemoglobin 15.2 g/dL (14.0-18.0); Immature Granulocytes # (auto) 0.02 K/uL (0.00-0.02); Immature Granulocytes % (auto) 0.2 %; Lymphocytes # (auto) 3.14 K/uL (1.2-3.4); Lymphocytes % (auto) 38.6 %; Mean Corpuscular Hemoglobin 32.1 pg (25-34); Mean Corpuscular Hgb Conc 33.9 g/dL (32-36); Mean Corpuscular Volume 94.5 fL (80-100); Mean Platelet Volume 9.5 fL (7.4-10.4); Monocytes # (auto) 0.73 K/uL (0.11-0.59); Neutrophils # (auto) 4.17 K/uL (1.4-6.5); Neutrophils % (auto) 51.3 %; Platelet Count 191 K/uL (130-400); RDW Coefficient of Variation 13.4 % (11.5-14.5); RDW Standard Deviation 46.4 fL (36.4-46.3); Red Blood Count 4.74 M/uL (4.7-6.1); White Blood Count 8.14 K/uL (4.8-10.8)
[2019-04-07] MEDS: INSULIN ASPART 100 UNITS/ML 3 ML PEN SC SCH (07:49)
--- NOTE | 2019-04-07 08:01 | Discharge Summary ---
Date of Service April 07, 2019 Admission HPI Per Admitting Provider Mr. Murray is a 78 year-old man with a history of chronic AF, type 2 diabetes, hypertension and severe symptomatic . Patient presented for cardiac catheterization as part of TAVR evaluation. Specialty Data Cardiology Cardiac catheterization 04/06/2019: 1. Single-vessel coronary artery disease -70% focal stenosis and large first diagonal 2. Transient mid RCA occlusion thought secondary to vasospasm/?air embolus, resolved with IC vasodilators. 3. Elevated left and right-sided filling pressures 4. Moderate pulmonary hypertension 5. Preserved cardiac output Discharge Data Procedures Performed Operation Date: 04/06/19 08:00 Actual Procedures s Cineradiography w/Routine Exam - Rl Pearson MD p Cath, Right and Left Heart - Rl Pearson MD s Aspiration/PCI w/MEET for Stemi - Rl Pearson MD Hospital Course (1) Severe aortic stenosis: Patient underwent right heart catheterization via antecubital vein which revealed elevated left and right sided filling pressures and preserved cardiac output. Coronary angiography revealed a focal stenosis in a large 1st diagonal but no other significant left system disease. With engagement of RCA patient developed transient ST elevations/chest pain and was noted to have a mid RCA 100% acute occlusion. Concern for air embolus and wire placed down RCA with plan for aspiration. With IC vasodilators ST elevation improved and repeat angiography showed widely patent RCA with ALLIE 3 flow. Due to transient event patient was kept for observation on telemetry service overnight. He had no further chest pain. Telemetry was unremarkable. Post procedure labs unchanged and no apparent access site complications. Patient discharged to home on hospital day 2 with plan to follow-up with Dr. Andrade and [facility] surgery for further TAVR evaluation. Discharge Instructions Home Medications Eliquis 5 mg PO BID 01/19/19 [History Confirmed 04/06/19] lisinopril 5 mg PO DAILY 01/19/19 [History Confirmed 04/06/19] metformin 1,000 mg PO BID 01/19/19 [History Confirmed 04/06/19] -- Hold for 24 hrs post discharge metoprolol succinate 100 mg PO HS 01/19/19 [History Confirmed 04/06/19] multivitamin 1 tab PO DAILY 01/19/19 [History Confirmed 04/06/19] tamsulosin [Flomax] 0.4 mg PO DAILY 04/06/19 [History Confirmed 04/06/19]
[2019-04-07] MEDS ORDERED: MULTIVITAMIN TAB PO SCH (09:00)
[2019-04-07] MEDS ORDERED: lisinopriL 5 MG TAB PO SCH (09:00)
[2019-04-07] MEDS ORDERED: APIXABAN 5 MG TABLET PO SCH (09:00)
[2019-04-07] MEDS ORDERED: TAMSULOSIN HCL 0.4 MG CAP PO SCH (09:00)
== END 2019-04-07 09:35 | disposition home or self-care (01) ==
LOC: CC 06:30 → 2S 06:30

== ENCOUNTER 2019-05-23 06:42 | Inpatient (IN) ==
[2019-05-23] MEDS ORDERED: HYDROmorphone INJ 0.5 MG/0.5 ML SYR IV PRN (09:33)
[2019-05-23] MEDS ORDERED: CHOLESTYRAMINE LIGHT 4 GM PKT PO STA (09:33)
[2019-05-23] MEDS ORDERED: ONDANSETRON INJ 2 MG/ML 2 ML VIAL IV STA (09:33)
[2019-05-23 09:41] LABS: Basophils # (auto) 0.03 K/uL (0-0.2); Basophils % (auto) 0.3 %; Eosinophils # (auto) 0.08 K/uL (0-0.5); Eosinophils % (auto) 0.9 %; Hematocrit (blood only) 42.1 % (42-52); Hemoglobin 14.4 g/dL (14.0-18.0); Immature Granulocytes # (auto) 0.04 K/uL (0.00-0.02); Immature Granulocytes % (auto) 0.4 %; Lymphocytes # (auto) 1.97 K/uL (1.2-3.4); Lymphocytes % (auto) 21.7 %; Mean Corpuscular Hemoglobin 31.4 pg (25-34); Mean Corpuscular Hgb Conc 34.2 g/dL (32-36); Mean Corpuscular Volume 91.9 fL (80-100); Mean Platelet Volume 9.1 fL (7.4-10.4); Monocytes # (auto) 0.73 K/uL (0.11-0.59); Neutrophils # (auto) 6.22 K/uL (1.4-6.5); Neutrophils % (auto) 68.7 %; Platelet Count 213 K/uL (130-400); RDW Coefficient of Variation 13.3 % (11.5-14.5); RDW Standard Deviation 44.3 fL (36.4-46.3); Red Blood Count 4.58 M/uL (4.7-6.1); White Blood Count 9.07 K/uL (4.8-10.8)
[2019-05-23 09:48] LABS: Alanine Aminotransferase 23 U/L (12-78); Albumin Level 3.7 gm/dl (3.4-5.0); Aspartate Aminotransferase 22 U/L (15-37); Blood Urea Nitrogen 17 mg/dl (7-18); Calcium 9.9 mg/dl (8.5-10.1); Carbon Dioxide 25 mmol/L (21-32); Chloride 95 mmol/L (98-107); Est GFR (African American) 64.1; Est GFR (Non-African American) 55.3; Glucose 144 mg/dl (70-99); Lipase 203 U/L (73-393); Potassium 4.9 mmol/L (3.5-5.1); Sodium 127 mmol/L (136-145)
[2019-05-23 09:51] LABS: Albumin Globulin Ratio 0.8 (0.9-2); Alkaline Phosphatase 99 U/L (45-117); Bilirubin,Total 0.4 mg/dl (0.2-1); Globulin 4.7 gm/dl (2.5-4.0); Total Protein 8.4 gm/dl (6.4-8.2)
[2019-05-23] MEDS ORDERED: LIDOCAINE 2% JELLY 5 ML TUBE ONE (10:46)
[2019-05-23] MEDS ORDERED: TAMSULOSIN HCL 0.4 MG CAP PO ONE (11:04)
[2019-05-23] MEDS ORDERED: lisinopriL 5 MG TAB PO ONE (11:04)
[2019-05-23] MEDS ORDERED: METOPROLOL SUCC 25MG EXT REL TAB PO STA (11:04)
--- NOTE | 2019-05-23 11:04 | Emergency Department Note ---
ED Visit Note Patient was seen in conjunction with Dr. Reinoso. Please see his note for medical decision making. . Resident Activity Tracking Resident Involvement: Resident Care Provided Care Provided: Adult ED
--- NOTE | 2019-05-23 11:24 | History & Physical Report ---
Date of Service May 23, 2019 Assessment & Plan (1) Hyponatremia: 78-year-old male with history of hypertension, diabetes, atrial fibrillation on Eliquis anticoagulation, BPH with indwelling catheter in place postoperative urinary retention Sodium = 127. Patient with low baseline, prior value of 132. Possibly secondary to diarrhea, volume loss. No neurological complaints, no seizure/AMS/headache Admit to medical floor Check urine and serum awesome, urinary sodium Normal saline at 80 mL/h x 1 L Repeat labs in a.m. Present on Admission?: Yes (2) Diarrhea: Patient with increased frequency of soft bowel movements since yesterday. Weakly Hemoccult positive in the ER. C. difficile negative. Patient given cholestyramine in the ER with some improvement. Imodium as needed Continue to monitor Present on Admission?: Yes (3) Complication, blocked Patrick catheter: Patient with BPH, Patrick placed 05/05/2019 after pacemaker surgery for urinary retention. -Patrick removed in the ER, replacement being attempted at present. 20-gauge Azeri coud Irrigate as needed Continue Flomax and dutasteride Continue Bactrim Present on Admission?: Yes (4) Enlarged prostate: Noted Plan as above Present on Admission?: Yes (5) Atrial fibrillation: Patient presently appears to be in regular rhythm by exam Continue metoprolol. This medication has recently been reduced to 25 mg p.o. daily -We will administer metoprolol 25 mg in the ER Continue daily Continue Eliquis. Closely monitor for evidence of bleeding Present on Admission?: Yes (6) Diabetes: Chronic. Blood sugar today = 144 We will hold metformin while inpatient Insulin sliding scale with goal blood sugar 100-140 Consistent carb diet as tolerated Present on Admission?: Yes (7) Hypertension: Blood pressure mildly elevated in the ER, most likely secondary to stress. Patient's diet has morning medications We will administer metoprolol 25 mg and lisinopril 5 mg now and daily per home medications Continue to monitor FENnormal saline at 80 mL/h x 1 L, monitor electrolytes and replete as needed, heart healthy/consistent carb diet as tolerated Prophylaxispatient is on anticoagulation with Eliquis for A. 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 Patient had postoperative urinary retention after his pacemaker surgery therefore indwelling Patrick catheter was placed. His Patrick was removed by his PCP 10 days ago however, the patient went back into urinary retention and needed to have his catheter replaced in the ER. He was seen by Dr. Kerr yesterday for urinary retention. Cystoscopy performed which showed a large obstructing gland within the right lobe slightly larger than the left and some changes in the right posterior wall consistent with catheter trauma. Patrick is to remain in place. Bactrim was started. Patient is to follow-up with urology in 4 weeks for voiding trial. Patient came to the ER last evening with concern for Patrick malfunction after noticing some pink-tinged urine and decreased output in the bag. The catheter was flushed in the ER with blood and clots removed and began functioning properly. The patient was discharged home in stable condition. He returns today with concerns for Patrick malfunction. States that it has not been draining properly. Bladder scan in the ER revealed 535 mL. Patrick removed and replacement is being attempted presently. Additionally, the patient is complaining of diarrhea. Frequent bowel movements, large and soft occurring q. hourly. He denies fever/chills/abdominal pain/nausea/vomiting. Denies chest pain/shortness of breath. No additional complaints at this time ER course: Cholestyramine, Dilaudid, Zofran Allergies Allergy/AdvReac Type Severity Reaction Status Date / Time No Known Allergies Allergy Verified 05/23/19 07:07 Home Medications Home Medications Medication Instructions Recorded Confirmed Type Eliquis 5 mg PO BID 01/19/19 05/23/19 History lisinopril 5 mg PO DAILY 01/19/19 05/23/19 History metformin 500 mg PO BID 01/19/19 05/23/19 History multivitamin 1 tab PO DAILY 01/19/19 05/23/19 History tamsulosin [Flomax] 0.4 mg PO DAILY 04/06/19 05/23/19 History furosemide [Lasix] 20 mg PO DIRECTED PRN 05/08/19 05/23/19 History dutasteride 0.5 mg capsule 0.5 mg PO DAILY #30 cap 05/20/19 05/23/19 Rx metoprolol succinate 100 mg PO DAILY 05/22/19 05/23/19 History trimethoprim 100 mg tablet 100 mg PO Q12H 30 Days #30 tab 05/22/19 05/23/19 Rx Past Med/Surg History Medical History (Updated 05/23/19 @ 11:28 by An Peterson DO) Atrial fibrillation Diabetes Enlarged prostate Hypertension Osteoarthritis of left shoulder region Surgical History History of aortic valve repair History of knee replacement History of permanent cardiac pacemaker placement Hx of shoulder replacement Post-operative state (Acute 07/06/13) Post-operative state (Acute 08/17/13) Social History Preferred Language: Tanzanian Communication Ability: Effective 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: No Beliefs That Will Affect Care: None marital status: Current Living Situation: Spouse current occupational status: retired 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 Feels Safe at Home: Yes Smoking Status: Never smoker Hx Alcohol Use: No Hx Substance Use: No Review of Systems Review of Systems: All systems reviewed & are unremarkable except as noted in HPI & below Physical Exam Physical Exam: General: patient resting comfortably, NAD, non-toxic in appearance, AA&O x 4 Skin: warm, dry, intact, no rashes or lesions HEENT: NC/AT, PERRL, EOMI, anicteric sclera, conjunctiva without injection, external ear normal to inspection and nontender, nares patent, moist mucus membranes, dentition intact, no oropharyngeal lesions, neck supple, trachea midline, no LAD, no thyromegaly, no JVD Heart: +S1/S2, regular, no m/r/g Lungs: equal air entry bilaterally, no rales/rhonchi/wheezes Abd: +BS mildly hyperactive, soft, NT/ND, no masses/organomegaly/ascites Ext: warm, 2+ pulses in UE/LE bilaterally, no clubbing/cyanosis, trace pitting edema equal bilaterally Neuro: nonfocal, patient AA&O x 4, speech intact, no facial droop, moving all extremities on command with equal strength 5/5, ambulates with cane Results & Data Vital Signs (Past 12 Hours) Vital Signs Temp Pulse Pulse Resp BP BP Pulse Ox 05/23/19 10:00 87 20 202/101 H 96 05/23/19 08:38 85 20 185/88 H 95 05/23/19 06:49 36.4 C L 81 18 156/86 H 96 Laboratory Results Lab Results 05/23/19 05/23/19 05/23/19 Range/Units 08:20 08:20 08:45 WBC 9.07 (4.8-10.8) K/uL RBC 4.58 L (4.7-6.1) M/uL Hgb 14.4 (14.0-18.0) g/dL Hct 42.1 (42-52) % MCV 91.9 (80-100) fL MCH 31.4 (25-34) pg MCHC 34.2 (32-36) g/dL RDW Std Deviation 44.3 (36.4-46.3) fL RDW Coeff of Alec 13.3 (11.5-14.5) % Plt Count 213 (130-400) K/uL MPV 9.1 (7.4-10.4) fL Immature Gran % (Auto) 0.4 % Neut % (Auto) 68.7 % Lymph % (Auto) 21.7 % Jay % (Auto) 8.0 % Eos % (Auto) 0.9 % Baso % (Auto) 0.3 % Immature Gran # (Auto) 0.04 H (0.00-0.02) K/uL Neut # (Auto) 6.22 (1.4-6.5) K/uL Lymph # (Auto) 1.97 (1.2-3.4) K/uL Jay # (Auto) 0.73 H (0.11-0.59) K/uL Eos # (Auto) 0.08 (0-0.5) K/uL Baso # (Auto) 0.03 (0-0.2) K/uL Sodium 127 L (136-145) mmol/L Potassium 4.9 (3.5-5.1) mmol/L Chloride 95 L (98-107) mmol/L Carbon Dioxide 25 (21-32) mmol/L Anion Gap 7.0 (3-11) BUN 17 (7-18) mg/dl Creatinine 1.24 (0.6-1.4) mg/dl Est Cr Clr Drug Dosing Not Reportable Est GFR ( Amer) 64.1 Est GFR (Non-Af Amer) 55.3 BUN/Creatinine Ratio 14.0 (10-20) Glucose 144 H (70-99) mg/dl Calcium 9.9 (8.5-10.1) mg/dl Total Bilirubin 0.4 (0.2-1) mg/dl AST 22 (15-37) U/L ALT 23 (12-78) U/L Alkaline Phosphatase 99 (45-117) U/L Total Protein 8.4 H (6.4-8.2) gm/dl Albumin 3.7 (3.4-5.0) gm/dl Globulin 4.7 H (2.5-4.0) gm/dl Albumin/Globulin Ratio 0.8 L (0.9-2) Lipase 203 (73-393) U/L Stl C. diff Tox B Gene Negative Cdiff Gene (Neg) Code Status & VTE Plan Code Status Full code PG Care Time/CCT Total # of Minutes Spent Total Time Spent with Patient: Total time spent is greater than 50% in coordination of care (as documented) at patient's floor/unit and/or counseling patient: Coding Level of Care Code 97796 Initial Inpt Care Lvl 3 Diagnoses Hyponatremia E87.1 Diarrhea R19.7 Diarrhea type: unspecified type Complication, blocked Patrick catheter T83.091S Encounter type: sequela Enlarged prostate N40.0 Atrial fibrillation I48.91 Atrial fibrillation type: unspecified Diabetes E11.9 Diabetes mellitus type: type 2 Diabetes mellitus mcc insulin use: without technician terminal and repeater use Diabetes mellitus complication status: without complication Hypertension I10 Hypertension type: essential hypertension (1) Atrial fibrillation Atrial fibrillation type: unspecified Qualified Code(s): I48.91 - Unspecified atrial fibrillation (2) Diabetes Diabetes mellitus type: type 2 Diabetes mellitus mcc insulin use: without mcc use Diabetes mellitus complication status: without complication Qualified Code(s): E11.9 - Type 2 diabetes mellitus without complications (3) Hypertension Hypertension type: essential hypertension Qualified Code(s): I10 - Essential (primary) hypertension (4) Complication, blocked Patrick catheter Encounter type: sequela Qualified Code(s): T83.091S - Other mechanical complication of indwelling urethral catheter, sequela (5) Diarrhea Diarrhea type: unspecified type Qualified Code(s): R19.7 - Diarrhea, unspecified
[2019-05-23 11:58] LABS: Appearance Urine Clear (Clear); Bacteria Urine Automated Negative (Negative); Bilirubin Urine Negative (Negative); Blood Urine 3+ (Negative); Color Urine Yellow; Epithelial Cell Urine Auto 0-5 /lpf (0-5); Glucose Urine UA Negative (Negative); Ketones Urine Negative (Negative); Leukocyte Esterase Urine Negative (Negative); Nitrite Urine Negative (Negative); Protein Urine 1+ (Negative); RBC Urine Automated >30 /hpf (0-4); Specific Gravity Urine 1.014 (1.000-1.030); Urobilinogen Urine Negative (Negative); pH Urine 5.5 (4.5-7.5)
[2019-05-23] MEDS ORDERED: CARBOHYDRATES FOR HYPOGLYCEMIA PO PRN (12:16)
[2019-05-23] MEDS ORDERED: ACETAMINOPHEN 325 MG TAB PO PRN (12:16)
[2019-05-23] MEDS ORDERED: ONDANSETRON INJ 2 MG/ML 2 ML VIAL IV PRN (12:16)
[2019-05-23] MEDS ORDERED: GLUCOSE 10 TABS/TUBE PO PRN (12:16)
[2019-05-23] MEDS ORDERED: GLUCOSE 40% GEL 15 GM TUBE PO PRN (12:16)
[2019-05-23] MEDS ORDERED: DEXTROSE 50% 50 ML SYRINGE IV PRN (12:16)
[2019-05-23] MEDS ORDERED: LOPERAMIDE HCL 2 MG CAP PO PRN (12:16)
[2019-05-23] MEDS ORDERED: GLUCAGON FOR INJ 1 MG VIAL SQ PRN (12:16)
[2019-05-23] MEDS ORDERED: SODIUM CHLORIDE 0.9% 1000ML 1,000 ML IV SCH (12:16)
[2019-05-23] MEDS ORDERED: Nursing to Pharmacy Communication ONE (12:43)
[2019-05-23] MEDS ORDERED: PATIENT'S HEIGHT AND/OR WEIGHT NEEDED SCH (12:45)
[2019-05-23] MEDS: INSULIN ASPART 100 UNITS/ML 3 ML PEN SC SCH ×3 (12:57→21:04)
[2019-05-23] MEDS: TAMSULOSIN HCL 0.4 MG CAP PO SCH (13:37)
[2019-05-23] MEDS: lisinopriL 5 MG TAB PO SCH (13:37)
--- NOTE | 2019-05-23 14:31 | Emergency Department Note ---
Entered by Aranza Pham acting as a scribe for History of Present Illness General Chief complaint: Diarrhea Stated complaint: DIARRHEA Time Seen by Provider: 05/23/19 07:17 History of Present Illness Provider complaint: diarrhea Onset (ago): hour(s) 7 Pain Consistency: + other (episode) Quality: + other (diarrhea) Associated symptoms: + denies other symptoms (recent bowel or abdominal surgery) and + other (urinary retention yesterday, catheter replaced, 1 episode of diarrhea every hour, diarrhea is loose but not painful, 1 episode with bright red blood, prostate exam yesterday, on antibiotics several days) The patient is a 78 year old male who presents to the ED with complaints of an episode of diarrhea that started 7 hours ago. The patient states that he was seen here in the ED yesterday for urinary retention. The patient states that he had his catheter replaced which helped to relieve his urinary symptoms. The patient notes that shortly after he was discharged, he started to have diarrhea. The patient states that he has had approximately 1 episode of diarrhea every hour since the initial onset. The patient describes the diarrhea as loose but not painful. Per , the patient had 1 episode of diarrhea with bright red blood present. The patient notes that he had a prostate exam yesterday and they warned him that blood in his stool may occur. The patient notes that he has been on antibiotics for several days, but today is his last day. The patient reports being on Eliquis. The patient denies recent bowel or abdominal surgery. Home Medications Home Medications Medication Instructions Recorded Confirmed Type Eliquis 5 mg PO BID 01/19/19 05/23/19 History lisinopril 5 mg PO DAILY 01/19/19 05/23/19 History metformin 500 mg PO BID 01/19/19 05/23/19 History multivitamin 1 tab PO DAILY 01/19/19 05/23/19 History tamsulosin [Flomax] 0.4 mg PO DAILY 04/06/19 05/23/19 History furosemide [Lasix] 20 mg PO DIRECTED PRN 05/08/19 05/23/19 History dutasteride 0.5 mg capsule 0.5 mg PO DAILY #30 cap 05/20/19 05/23/19 Rx metoprolol succinate 25 mg PO HS 05/22/19 05/23/19 History trimethoprim 100 mg tablet 100 mg PO Q12H 30 Days #30 tab 05/22/19 05/23/19 Rx Allergies Allergy/AdvReac Type Severity Reaction Status Date / Time No Known Allergies Allergy Verified 05/23/19 07:07 Past Med/Surg History Social History Preferred Language: Estonian Communication Ability: Effective Electronic Wirer Required: No Beliefs That Will Affect Care: None marital status: Current Living Situation: Spouse current occupational status: retired 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 and A total of 10 systems reviewed and were otherwise negative Physical Exam Vital Signs Vital Signs - 24 hr 05/23/19 06:49 05/23/19 08:38 05/23/19 10:00 Temperature 36.4 C L Temperature Source Oral Pulse Rate 81 Pulse Rate [Apical] 85 87 Respiratory Rate 18 20 20 Respiratory Effort / Characteristics Non-Labored Spontaneous Respiratory Depth Normal Blood Pressure 156/86 H Blood Pressure [Right Arm] 185/88 H 202/101 H Blood Pressure Mean 109 Blood Pressure Mean [Right Arm] 120 134 Pulse Oximetry 96 95 96 Oxygen Delivery Method Room Air Room Air Room Air Sepsis Recent Fever Within 48 Hours No Sepsis Action Taken by Nursing No Action Required GENERAL: Awake, alert, well-appearing, in no acute distress HENT: Normocephalic, atraumatic. Oropharynx unremarkable. EYES: Normal conjunctiva. Sclera non-icteric. NECK: Supple. No nuchal rigidity. FROM. No JVD. RESPIRATORY: Clear to auscultation. CARDIAC: Regular rate, normal rhythm. Extremities warm and well perfused. Pulses equal. ABDOMEN: Soft, non-distended. No tenderness to palpation. No rebound or guarding. No masses. RECTAL: Deferred. MUSCULOSKELETAL: Chest examination reveals no tenderness. The back is symmetrical on inspection without obvious abnormality. There is no CVA tender ness to palpation. No joint edema. LOWER EXTREMITIES: Calves are equal size bilaterally and non-tender. No edema. No discoloration. NEURO: Normal sensorium. No sensory or motor deficits noted. SKIN: No rash or jaundice noted. Course Course 725: Past medical records reviewed. The patient was evaluated in room A03. A complete history and physical exam was performed. 1101: I discussed the patient's case with Dr. Rodas [facility], Hospitalist. She will evaluate the patient for further management. Consultations Consultation #1: I discussed the patient's case with Dr. Rodas [facility], Hospitalist. She will evaluate the patient for further management. Time: 11:01 Administered Medications Sodium Chloride (Nss 1000ml) 1,000 mls @ 80 mls/hr IV .[id number] MANJIT Stop: 05/24/19 00:45 Last Admin: 05/23/19 12:41 Dose: 80 mls/hr Documented by: [id number] Insulin Aspart (Novolog Flexpen) 0 units SC ACHS MANJIT Stop: 06/22/19 12:15 Last Admin: 05/23/19 12:57 Dose: Not Given Documented by: [id number] Cosigned by: [id number] Lisinopril (Zestril) 5 mg PO DAILY MANJIT Stop: 06/23/19 08:59 Last Admin: 05/23/19 13:37 Dose: 5 mg Documented by: [id number] Tamsulosin HCl (Flomax) 0.4 mg PO DAILY MANJIT Stop: 06/23/19 08:59 Last Admin: 05/23/19 13:37 Dose: 0.4 mg Documented by: [id number] Discontinued Medications Cholestyramine Resin (Questran) 4 gm PO NOW STA Stop: 05/23/19 09:34 Last Admin: 05/23/19 10:30 Dose: 4 gm Documented by: [id number] Lidocaine HCl (Xylocaine 2% Jelly) Confirm Administered Dose 5 ml .ROUTE .STK- MED ONE Stop: 05/23/19 10:47 Last Admin: 05/23/19 12:40 Dose: Not Given Documented by: [id number] Lisinopril (Zestril) 5 mg PO NOW ONE Stop: 05/23/19 11:05 Last Admin: 05/23/19 12:40 Dose: Not Given Documented by: [id number] Metoprolol Succinate (Toprol Xl) 25 mg PO NOW STA Stop: 05/23/19 11:05 Last Admin: 05/23/19 12:40 Dose: Not Given Documented by: [id number] Miscellaneous (Patient's Height And/Or Weight Needed) 1 ea N/A Q2H MANJIT Stop: 06/22/19 12:44 Last Admin: 05/23/19 13:59 Dose: Not Given Documented by: [id number] Ondansetron HCl (Zofran) 4 mg IV NOW STA Stop: 05/23/19 09:34 Last Admin: 05/23/19 12:40 Dose: Not Given Documented by: [id number] Tamsulosin HCl (Flomax) 0.4 mg PO NOW ONE Stop: 05/23/19 11:05 Last Admin: 05/23/19 12:40 Dose: Not Given Documented by: [id number] Medical Decision Making Differential Diagnosis Differential diagnosis: Etiologies such as gastroenteritis, food borne illness, infections, appendicitis, diverticulitis, inflammatory bowel disease, obstruction, GI bleed, biliary pathology, cardiac process, intracranial process, as well as others were entertained. Medical Records Attestation: I reviewed the patient's medical records. Home Medications Current Medication List: was personally reviewed by me Laboratory Data Attestation: I reviewed the patient's lab results. Result diagrams: 05/23/19 08:20 05/23/19 08:20 Lab Results 05/23/19 05/23/19 05/23/19 Range/Units 08:20 08:20 08:20 WBC 9.07 (4.8-10.8) K/uL RBC 4.58 L (4.7-6.1) M/uL Hgb 14.4 (14.0-18.0) g/dL Hct 42.1 (42-52) % MCV 91.9 (80-100) fL MCH 31.4 (25-34) pg MCHC 34.2 (32-36) g/dL RDW Std Deviation 44.3 (36.4-46.3) fL RDW Coeff of Alec 13.3 (11.5-14.5) % Plt Count 213 (130-400) K/uL MPV 9.1 (7.4-10.4) fL Immature Gran % (Auto) 0.4 % Neut % (Auto) 68.7 % Lymph % (Auto) 21.7 % Frontier % (Auto) 8.0 % Eos % (Auto) 0.9 % Baso % (Auto) 0.3 % Immature Gran # (Auto) 0.04 H (0.00-0.02) K/uL Neut # (Auto) 6.22 (1.4-6.5) K/uL Lymph # (Auto) 1.97 (1.2-3.4) K/uL Frontier # (Auto) 0.73 H (0.11-0.59) K/uL Eos # (Auto) 0.08 (0-0.5) K/uL Baso # (Auto) 0.03 (0-0.2) K/uL Sodium 127 L (136-145) mmol/L Potassium 4.9 (3.5-5.1) mmol/L Chloride 95 L (98-107) mmol/L Carbon Dioxide 25 (21-32) mmol/L Anion Gap 7.0 (3-11) BUN 17 (7-18) mg/dl Creatinine 1.24 (0.6-1.4) mg/dl Est Cr Clr Drug Dosing Not Reportable Est GFR ( Amer) 64.1 Est GFR (Non-Af Amer) 55.3 BUN/Creatinine Ratio 14.0 (10-20) Glucose 144 H (70-99) mg/dl Osmolality 279 L (280-300) mOsm/kg Calcium 9.9 (8.5-10.1) mg/dl Total Bilirubin 0.4 (0.2-1) mg/dl AST 22 (15-37) U/L ALT 23 (12-78) U/L Alkaline Phosphatase 99 (45-117) U/L Total Protein 8.4 H (6.4-8.2) gm/dl Albumin 3.7 (3.4-5.0) gm/dl Globulin 4.7 H (2.5-4.0) gm/dl Albumin/Globulin Ratio 0.8 L (0.9-2) Lipase 203 (73-393) U/L Stl C. diff Tox B Gene (Neg) 05/23/19 Range/Units 08:45 WBC (4.8-10.8) K/uL RBC (4.7-6.1) M/uL Hgb (14.0-18.0) g/dL Hct (42-52) % MCV (80-100) fL MCH (25-34) pg MCHC (32-36) g/dL RDW Std Deviation (36.4-46.3) fL RDW Coeff of Alec (11.5-14.5) % Plt Count (130-400) K/uL MPV (7.4-10.4) fL Immature Gran % (Auto) % Neut % (Auto) % Lymph % (Auto) % Frontier % (Auto) % Eos % (Auto) % Baso % (Auto) % Immature Gran # (Auto) (0.00-0.02) K/uL Neut # (Auto) (1.4-6.5) K/uL Lymph # (Auto) (1.2-3.4) K/uL Frontier # (Auto) (0.11-0.59) K/uL Eos # (Auto) (0-0.5) K/uL Baso # (Auto) (0-0.2) K/uL Sodium (136-145) mmol/L Potassium (3.5-5.1) mmol/L Chloride (98-107) mmol/L Carbon Dioxide (21-32) mmol/L Anion Gap (3-11) BUN (7-18) mg/dl Creatinine (0.6-1.4) mg/dl Est Cr Clr Drug Dosing Est GFR ( Amer) Est GFR (Non-Af Amer) BUN/Creatinine Ratio (10-20) Glucose (70-99) mg/dl Osmolality (280-300) mOsm/kg Calcium (8.5-10.1) mg/dl Total Bilirubin (0.2-1) mg/dl AST (15-37) U/L ALT (12-78) U/L Alkaline Phosphatase (45-117) U/L Total Protein (6.4-8.2) gm/dl Albumin (3.4-5.0) gm/dl Globulin (2.5-4.0) gm/dl Albumin/Globulin Ratio (0.9-2) Lipase (73-393) U/L Stl C. diff Tox B Gene Negative Cdiff Gene (Neg) Blood Pressure Blood Pressure Findings: Elevated blood pressure Blood Pressure Disposition: further management by hospitalist [facility] Narrative There is a 78-year-old male who presents emergency department complaining of a large amount of diarrhea. The patient was given cholestyramine here in the emergency department. His stool sample is negative for C. difficile however his sodium level is 127. Patient's feels she can no longer care for him at home and is concerned about him. His Patrick catheter was removed here in the emergency department as it stopped draining. The patient did not wish to have a new Patrick placed. He was discussed with the hospitalist service who did agree to admit the patient. Patient was in agreement with the treatment plan. Impression & Plan Complication, blocked Patrcik catheter, Diarrhea, Hyponatremia Discharge Plan Visit Data *Final* Discharge Date/Time: 05/23/19 11:53 Chief Complaint: Diarrhea Stated Complaint: DIARRHEA ED Provider: Ian Reinoso ED Midlevel Provider: Ebony Sheffield Discharge Problem: Complication, blocked Patrick catheter, Diarrhea, Hyponatremia Patient Disposition: Admitted As Inpatient Discharge Instructions Interventions: ED Discharge Assessment Last Done: 05/23/19 11:53 Discharge Problem: Complication, blocked Patrick catheter Qualifiers: Encounter type: initial encounter Qualified Code(s): T83.091A - Other mechanical complication of indwelling urethral catheter, initial encounter Diarrhea Qualifiers: Diarrhea type: unspecified type Qualified Code(s): R19.7 - Diarrhea, u nspecified The scribe's documentation has been prepared under my direction and personally reviewed by me in its entirety. I confirm that the note above accurately reflects all work, treatment, procedures, and medical decision making performed by me.
[2019-05-23] MEDS: Dutasteride 0.5 MG - ORDER AWAITING ACTION SCH (15:49)
[2019-05-23] MEDS ORDERED: METOPROLOL SUCC 25MG EXT REL TAB PO SCH (21:00)
[2019-05-23] MEDS: APIXABAN 5 MG TABLET PO SCH (21:04)
[2019-05-24] MEDS: Dutasteride 0.5 MG - ORDER AWAITING ACTION SCH ×2 (00:42→08:11)
[2019-05-24 05:49] LABS: Basophils # (auto) 0.03 K/uL (0-0.2); Basophils % (auto) 0.4 %; Eosinophils % (auto) 1.4 %; Hemoglobin 13.9 g/dL (14.0-18.0); Immature Granulocytes # (auto) 0.03 K/uL (0.00-0.02); Immature Granulocytes % (auto) 0.4 %; Lymphocytes # (auto) 2.28 K/uL (1.2-3.4); Lymphocytes % (auto) 32.4 %; Mean Corpuscular Hgb Conc 34.8 g/dL (32-36); Mean Platelet Volume 8.7 fL (7.4-10.4); Monocytes # (auto) 0.61 K/uL (0.11-0.59); Monocytes % (auto) 8.7 %; Neutrophils # (auto) 3.99 K/uL (1.4-6.5); Neutrophils % (auto) 56.7 %; Platelet Count 202 K/uL (130-400); RDW Coefficient of Variation 13.3 % (11.5-14.5); RDW Standard Deviation 44.6 fL (36.4-46.3); Red Blood Count 4.35 M/uL (4.7-6.1); White Blood Count 7.04 K/uL (4.8-10.8)
[2019-05-24 06:17] LABS: BUN Creatinine Ratio 13.9 (10-20); Calcium 9.2 mg/dl (8.5-10.1); Creatinine Clr Calc Pharmacy 65.5 ml/min; Est GFR (Non-African American) 64.7; Potassium 4.7 mmol/L (3.5-5.1)
[2019-05-24] MEDS: lisinopriL 5 MG TAB PO SCH (08:12)
[2019-05-24] MEDS: APIXABAN 5 MG TABLET PO SCH (08:13)
[2019-05-24] MEDS: TAMSULOSIN HCL 0.4 MG CAP PO SCH (08:13)
[2019-05-24] MEDS: INSULIN ASPART 100 UNITS/ML 3 ML PEN SC SCH ×2 (08:26→13:00)
[2019-05-24] MEDS ORDERED: METOPROLOL SUCC 25MG EXT REL TAB PO SCH (09:00)
[2019-05-24 13:28] LABS: BUN Creatinine Ratio 13.1 (10-20); Calcium 9.2 mg/dl (8.5-10.1); Creatinine Clr Calc Pharmacy 59.5 ml/min; Est GFR (African American) 66.7; Est GFR (Non-African American) 57.6; Potassium 4.2 mmol/L (3.5-5.1)
--- NOTE | 2019-05-24 13:48 | Discharge Summary ---
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 Patient had postoperative urinary retention after his pacemaker surgery therefore indwelling Gaming catheter was placed. His Gaming was removed by his PCP 10 days ago however, the patient went back into urinary retention and needed to have his catheter replaced in the ER. He was seen by Dr. Kerr yesterday for urinary retention. Cystoscopy performed which showed a large obstructing gland within the right lobe slightly larger than the left and some changes in the right posterior wall consistent with catheter trauma. Gaming is to remain in place. Bactrim was started. Patient is to follow-up with urology in 4 weeks for voiding trial. Patient came to the ER last evening with concern for Gaming malfunction after noticing some pink-tinged urine and decreased output in the bag. The catheter was flushed in the ER with blood and clots removed and began functioning properly. The patient was discharged home in stable condition. He returns today with concerns for Gaming malfunction. States that it has not been draining properly. Bladder scan in the ER revealed 535 mL. Gaming removed and replacement is being attempted presently. Additionally, the patient is complaining of diarrhea. Frequent bowel movements, large and soft occurring q. hourly. He denies fever/chills/abdominal pain/nausea/vomiting. Denies chest pain/shortness of breath. No additional co mplaints at this time ER course: Cholestyramine, Dilaudid, Zofran Admission Exam Per Admitting Provider General: patient resting comfortably, NAD, non-toxic in appearance, AA&O x 4 Skin: warm, dry, intact, no rashes or lesions HEENT: NC/AT, PERRL, EOMI, anicteric sclera, conjunctiva without injection, external ear normal to inspection and nontender, nares patent, moist mucus membranes, dentition intact, no oropharyngeal lesions, neck supple, trachea midline, no LAD, no thyromegaly, no JVD Heart: +S1/S2, regular, no m/r/g Lungs: equal air entry bilaterally, no rales/rhonchi/wheezes Abd: +BS mildly hyperactive, soft, NT/ND, no masses/organomegaly/ascites Ext: warm, 2+ pulses in UE/LE bilaterally, no clubbing/cyanosis, trace pitting edema equal bilaterally Neuro: nonfocal, patient AA&O x 4, speech intact, no facial droop, moving all extremities on command with equal strength 5/5, ambulates with cane Principal Diagnosis Hyponatremia Diarrhea Discharge Exam General: In NAD HEENT: moist oral mucosa Neuro: A&O x 4 CV: RRR, no m/r/g, cap refill 2 secs Pulm: CTAB, equal breath sounds bilaterally , no increased work of breathing Abdomen: +BS, mild TTP in RUQ region, non-distended LE: No LE edema, no calf tenderness Discharge Data Allergies Allergy/AdvReac Type Severity Reaction Status Date / Time No Known Allergies Allergy Verified 05/23/19 07:07 Consultations 05/23/19 10:34 ED Decision to Admit Stat Hospital Course (1) Hyponatremia: 78-year-old male with diabetes, hypertension, atrial fibrillation on Eliquis and severe aortic stenosis status post TAVR on 04/30/19 at [facility], 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 Patient had postoperative urinary retention after his pacemaker surgery therefore indwelling Gaming catheter was placed failed void trial. Had cystoscopy by Dr. Kerr on 05/22 concerning for BPH and catheter trauma and started on Trimethoprim. Presented with diarrhea and blocked gaming. Hyponatremia: likely secondary to diarrhea/dehydration -Sodium 127 on admission. Baseline, prior value of 132. No neurological complaints, no seizure/AMS/headache Urine 335 and serum Osms 279 - low, urinary sodium 60 Received Normal saline at 80 mL/h x 1 L Improved to 132 this AM Diarrhea: likely secondary to antibiotics vs. viral gastroenteritis - improved -Patient with increased frequency of soft bowel movements x 2 days -Weakly Hemoccult positive in the ER -C. difficile negative -Stool Culture pending -Received cholestyramine and Imodium as needed BPH with Blocked Gaming catheter for postoperative urinary retention: resolved after replacement -Gaming draining clear urine today Continue Flomax and dutasteride Continue Trimethoprim prescribed by Dr. Kerr after procedure on 05/22 HTN/Atrial fibrillation: Continue metoprolol and Lisinopril Continue Eliquis Diabetes: -Received SSI -Continue metformin (2) Diarrhea: (3) Enlarged prostate: (4) Atrial fibrillation: (5) Diabetes: (6) Hypertension: (7) Complication, blocked Gaming catheter: (8) Postoperative urinary retention: (9) Pacemaker: (10) Arthritis: Total Time Total Time Spent Total Time Spent (In Minutes): <30 mins Discharge Plan Discharge Items Patient Disposition: Home - Self-Care Reason For Visit: HYPONATREMIA, DIARRHEA/GAMING MALFUNCTIONING Discharge Diagnosis: Hyponatremia Diarrhea Activity: Resume your previous activity Non-emergency contact: Primary Care Provider Call non-emergency contact if: you have any medication questions and your symptoms worsen Follow-up/Referrals: Leoncio Valladares MD [Primary Care Provider] - (Patient's will call PCP to make follow-up appointment) Diet: Carb Consistent or DM2 Addtl Attending Provider Instructions: Mr. Murray you presented with concern for a blocked gaming catheter which has been placed for urinary retention in the setting of an enlarged prostate. Your gaming was replaced and it started functioning normally again. You were also noted to have diarrhea and a low sodium level which likely resulted from having diarrhea and being dehydrated. Your diarrhea and sodium level improved prior to your discharge. You were feeling well and your work up was reassuring so you are being discharged home. Please follow the instructions below: -Continue taking trimethoprim, dutasteride and flomax as prescribed by your urologist -Follow up with your urologist, Dr. Kerr as scheduled -Continue taking your remaining home medications as prescribed prior to your admission -Follow up with your primary care doctor in 2-3 days Pending Studies at Discharge: No Stand-Alone Forms: [facility] C[facility] Medications and DC Order Prescriptions: Continued trimethoprim 100 mg tablet 100 mg PO Q12H 30 Days Qty: 30 RF: 3 dutasteride 0.5 mg capsule 0.5 mg PO DAILY Qty: 30 RF: 2 multivitamin Tablet 1 tab PO DAILY RF: 0 metformin 500 mg tablet 500 mg PO BID RF: 0 lisinopril 5 mg tablet 5 mg PO DAILY RF: 0 Eliquis 5 mg tablet 5 mg PO BID RF: 0 furosemide [Lasix] 20 mg Tablet 20 mg PO DIRECTED PRN (Reason: swelling) RF: 0 metoprolol succinate 100 mg tablet extended release 24 hr 25 mg PO HS RF: 0 tamsulosin [Flomax] 0.4 mg Capsule 0.4 mg PO DAILY RF: 0 Discharge Orders: Discharge Order (Routine); Ordered 05/24/19 Ordered By: Dianelys Spencer Admission Data Admit Date/Time: 05/23/19 11:03 Attending Provider: Elia Ennis Admit Provider: An Peterson Primary Care Provider: Leoncio Valladares Other Providers: An Peterson Other Interventions: Discharge Summary Assessment (RN) Last Done: 05/24/19 14:55 DC Date/Time DO NOT enter until pt leaves facility: 05/24/19 15:39 Supervising Physician Co-Signing Physician Notes I personally examined the patient and verified all aguirre points of history and exam, discussed case, and agree with decision making with Dr Spencer. Feeling better. Gaming draining better. No diarrhea. Overall feels up to going home. Extensive discussion with patient and , all questions answered to the best my ability. Vitals noted, in general he is awake and alert pleasant no distress. HEENT normocephalic atraumatic mucous membranes moist. Breathing unlabored no accessory muscle use good effort. Skin shows no rashes no pallor or icterus. Gaming draining yellow urine with no blood no clots. No focal neuro deficits. Hematuriafrom catheter. Now improved. Draining well. Continue prostate medications. Has outpatient urology follow-up scheduled. Diarrheanow resolvednonspecific, probably viral. Hyponatremiamost likely from diarrhea, possibly also from urinary retention from blocked cathetereither way improving. Stable for home. Outpatient follow-up. Otherwise as above. Resident Activity Tracking Resident Involvement: Resident Care Provided Care Provided: Adult Hospital Medicine
--- NOTE | 2019-05-24 16:17 | Billing Data ---
Date of Service May 24, 2019 Coding Level of Care Code D/C Day Management <30 mins
== END 2019-05-24 15:39 | disposition home or self-care (01) | DRG 699 ==
LOC: ED 06:42 → SUATTDRO 11:03 → 4W 11:03

== ENCOUNTER 2021-12-09 07:06 | Inpatient (IN) ==
[2021-12-09] MEDS ORDERED: PIPERACILLIN/TAZOBACTAM 4.5 GM/120 ML BAG IV ONE (08:04)
[2021-12-09 08:12] LABS: Basophils # (auto) 0.05 K/uL (0-0.2); Basophils % (auto) 0.8 %; Eosinophils # (auto) 0.14 K/uL (0-0.50); Eosinophils % (auto) 2.1 %; Hemoglobin 14.7 g/dl (14.0-18.0); Immature Granulocytes # (auto) 0.02 K/uL (0.00-0.02); Immature Granulocytes % (auto) 0.3 %; Lymphocytes % (auto) 27.5 %; Mean Corpuscular Hemoglobin 31.5 pg (25.0-34.0); Mean Corpuscular Hgb Conc 32.7 g/dL (32.0-36.0); Mean Corpuscular Volume 96.4 fL (80.0-100.0); Mean Platelet Volume 9.2 fL (9.4-12.4); Monocytes # (auto) 0.72 K/uL (0.24-0.82); Neutrophils # (auto) 3.81 K/uL (1.4-6.5); Neutrophils % (auto) 58.3 %; Platelet Count 216 K/uL (130-400); RDW Coefficient of Variation 12.7 % (11.5-14.5); RDW Standard Deviation 45.2 fL (36.4-46.3); Red Blood Count 4.67 M/uL (4.63-6.08); White Blood Count 6.54 K/ul (4.8-10.8)
--- NOTE | 2021-12-09 08:28 | XRay Report ---
XR foot RT min 3V routine CLINICAL HISTORY: Right second toe distal wound, diabetic ulcer COMPARISON: None FINDINGS: Note is made of right second toe soft tissue swelling. There is erosion of the distal phal anx of the right second toe. Lateral projection demonstrates plantar subluxation of the distal phalan x with respect to the middle phalanx phalanx. There is an 8 mm linear density projecting over the shakila ntar soft tissues of the right foot at the level of the distal second metatarsal. There is a smaller adjacent radiodensity. 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 No acute fractures are identified. There is moderate vascular calcification. Plantar calcaneal spurr ing. IMPRESSION: 1. Erosion of the distal phalanx of the right second toe suggestive of acute osteomyelitis. Associate d subluxation at the DIP joint. Right second digit soft tissue swelling. 2. Two small linear metallic foreign bodies within the plantar aspect of the right foot at the level of the distal metatarsals. ACT 112: Negative or not required by law. Electronically signed by: Josh Benavides M.D. 12/09/2021 8:26 AM
[2021-12-09 08:36] LABS: Albumin Globulin Ratio 1.2 (0.9-2); BUN Creatinine Ratio 22.9 (10-20); Bilirubin,Total 0.4 mg/dl (0.2-1.0); C Reactive Protein 6.37 mg/dl (0-0.5); Calcium 9.4 mg/dl (8.5-10.1); Creatinine Clr Calc Pharmacy 60.3 ml/min; Est GFR (African American) 76.8 ml/min; Est GFR (Non-African American) 66.3 ml/min; Globulin 3.3 gm/dl (2.5-4.0); Potassium 4.2 mmol/L (3.5-5.1); Total Protein 7.3 gm/dl (6.0-8.3)
[2021-12-09] MEDS ORDERED: VANCOMYCIN CONSULT ACTIVE PRN (08:49)
[2021-12-09] MEDS ORDERED: VANCOMYCIN HCL 2,000 MG in SODIUM CHLORIDE 0.9% 500 ML IV ONE (08:49)
--- NOTE | 2021-12-09 09:28 | History & Physical Report ---
Date of Service December 09, 2021 Assessment & Plan (1) Osteomyelitis of toe: Plan: Presents with right second toe diabetic foot ulcer with associated cellulitis and osteomyelitis of the distal phalanx, subluxation of DIP joint. With 2 metallic foreign bodies the distal second MT. No fevers or chills, not septic on arrival, with some streaking erythema up the right foot and edema of the right leg. Right foot x-ray consistent with osteomyelitis Failed Bactrim x4 to 5 days as an outpatient ESR 56, CRP 6 on admission, no leukocytosis or fevers. Has a previous history of Pseudomonas and Enterococcus infection in the urine -Admit to medical floor telemetry given history of atrial fibrillation and TAVR, underlying cardiac issues -Consult orthopedic surgery to see about need for amputation -Consult his junior buyer for preoperative management as I do not have any of his recent cardiology records -Continue broad-spectrum antibiotic coverage with IV Zosyn and vancomycin- pharmacy to manage dosing of vancomycin -Wound culture collected in the ER-follow results-gram stain thus far shows moderate GPC -Blood cultures drawn-pending -Follow CBC, ESR, CRP, CMP -May need further imaging with MRI-Will to see if pacer is compatible. He did have a bone scan for his prostate cancer just the day prior to admission which was negative. -He is not requiring pain control for this as he has neuropathy (2) Diabetic foot ulcer: Plan: As above Continue dressings now that it is draining purulent fluid (3) History of aortic valve repair: Plan: History of TAVR in 04/2019 Doing well since that time with mildly reduced EF but is euvolemic at this time Appreciate cardiology consultation (4) Pacemaker: Plan: Placed for heart block in the immediate period following his TAVR Functioning well (5) Atrial fibrillation: Plan: Permanent atrial fibrillation Continue Eliquis for now but can hold for a few days as per cardiology if deemed necessary by orthopedic surgery Monitor on telemetry Continue home metoprolol, diltiazem (6) Diabetes: Plan: No recent hemoglobin A1c Hold home Tradjenta and metformin Give NovoLog sliding scale for now and add Lantus if needed Check hemoglobin A1c in the morning Accu-Cheks, diabetic diet (7) Hypertension: Plan: Blood pressures are controlled Continue home diltiazem, metoprolol, Entresto (8) Primary malignant neoplasm of prostate with high risk of recurrence due to [place] score of 8 to 10 and PSA greater than 20: Plan: Recently diagnosed Has upcoming appointment with oncology to decide on further treatment versus a watch and wait approach Had a bone scan on 12/08 which was negative-report obtained and scanned into records here (9) CHF (congestive heart failure): Plan: With mildly reduced EF as per cardiology consultation Is euvolemic Is not on diuretics Cautious use of fluids in the perioperative period if used Continue Entresto, metoprolol succinate Follow daily weights, strict I's and O's Plan DVT prophylaxis-Eliquis Disposition-admit to medical floor with telemetry Full code as discussed with patient and his at the bedside Discussed his care with Dr. Rodríguez orthopedic surgery History of Present Illness Chief Complaint: Toe infection Primary Care Provider: Leoncio Valladares MD This patient is an 81-year-old male with a history of severe aortic stenosis now s/p TAVR, prostate cancer, atrial fibrillation, HFrEF, DM2, HTN, who presents to the ER with worsening right second toe infection. He reports he tried cutting his own toenails about 2 weeks ago and then noticed that the right second toe developed an ulcer at the tip. His toe since that time has been progressively becoming more swollen and red with pus draining out of the ulceration. He was started on Bactrim by his PCP on 12/05 and has been taking this twice daily with continued worsening of the infection. He now as of this morning noticed red streaking up the side of his foot and worsening swelling and came to the ER. He denies any fever/chills, no headaches or nausea, no abdominal pains, no diarrhea, no rashes, no joint pains anywhere else. He does have bilateral knee replacements, left shoulder replacement, as well as a pacemaker and a TAVR in place. He denies any fatigue, chest pains, shortness of breath, cough. Otherwise has been feeling his normal self. In the ER, he was found to have normal vital signs specifically he was afebrile. His labs were fairly unremarkable except for sodium of 135, ESR elevated at 56, and CRP elevated at 6. He did not have a leukocytosis and his renal function is normal. An x-ray of the right foot showed osteomyelitis of the second toe distal phalanx with subluxation of the DIP joint as well as 2 metallic foreign bodies at the distal second MT. He was given IV vancomycin and IV Zosyn in the ER. He will be admitted for diabetic foot ulcer with associated cellulitis and toe osteomyelitis. Allergies Allergy/AdvReac Type Severity Reaction Status Date / Time No Known Allergies Allergy Verified 11/08/21 08:07 Home Medications Medication Instructions Recorded Confirmed Type apixaban 5 mg tablet (Eliquis) 5 mg PO BID 01/19/19 12/09/21 History metformin 500 mg tablet 500 mg PO BID 01/19/19 12/09/21 History multivitamin 1 tab PO DAILY 01/19/19 12/09/21 History tamsulosin 0.4 mg capsule (Flomax) 0.4 mg PO DAILY 04/06/19 12/09/21 History furosemide 20 mg tablet (Lasix) 20 mg PO DIRECTED PRN swelling 05/08/19 12/09/21 History dutasteride 0.5 mg capsule 0.5 mg PO DAILY #90 caps 10/28/19 12/09/21 Rx celecoxib 200 mg capsule (Celebrex) 200 mg PO BID 11/08/21 12/09/21 History clobetasol 0.05 % topical cream 1 applic topical BID 11/08/21 12/09/21 History diltiazem HCl 30 mg tablet 30 mg PO BID 11/08/21 12/09/21 History linagliptin 5 mg tablet (Tradjenta) 5 mg PO DAILY 11/08/21 12/09/21 History metoprolol succinate 100 mg 50 mg PO HS 11/08/21 12/09/21 History tablet,extended release 24 hr pravastatin 20 mg tablet 20 mg PO DAILY 11/08/21 12/09/21 History sacubitril 24 mg-valsartan 26 mg 1 tab PO BID 11/08/21 12/09/21 History tablet (Entresto) tramadol 50 mg tablet 50 mg PO Q6H PRN Pain 11/08/21 12/09/21 History sulfamethoxazole 400 1 tab PO BID 12/09/21 12/09/21 History mg-trimethoprim 80 mg tablet (Bactrim) Past Med/Surg History Medical History (Updated 12/09/21 @ 12:00 by Erin Huerta MD) Arthritis Atrial fibrillation CHF (congestive heart failure) Complication, blocked Patrick catheter Diabetes Diarrhea Elevated prostate specific antigen (PSA) Enlarged prostate Hypertension Hyponatremia Osteoarthritis of left shoulder region Pacemaker Radha [id number] Micra VR TCP Serial # [id number] Postoperative urinary retention Prostate nodule Severe aortic stenosis Surgical History History of aortic valve repair History of knee replacement History of permanent cardiac pacemaker placement Radha [id number] Micra VR TCP Serial # [id number] Hx of shoulder replacement Post-operative state (07/06/13) Post-operative state (08/17/13) Family History Brother Cancer 3 brothers/ prostate Other Family history non-contributory Social History Smoking Status: Never smoker Hx Alcohol Use: No Hx Substance Use: No Preferred Language: Turkish Communication Ability: Effective Hearing Ability: Normal Barrel Finisher Required: No Beliefs That Will Affect Care: None marital status: Current Living Situation: Spouse current occupational status: retired 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 Feels Safe at Home: Yes Diet Comment: Diabetic diet during the past year weight has: remained stable Assistive Devices: Cane, Denture - Upper and Denture - Lower Review of Systems Review of Systems: All systems reviewed & are unremarkable except as noted in HPI & below Physical Exam Constitutional: WD/WN, vitals as above Eyes: + anicteric sclerae ENMT: external ear and nose normal, oropharynx normal Neck: trachea midline, no thyromegaly Respiratory: normal respiratory effort, lungs clear to auscultation Cardiovascular: Rate/Rhythm: regular rate and + irregularly irregular Heart Sounds: no murmur Vessels: dorsalis pedis pulses present (1+ bilaterally in DP and PT) Extremities: + edema (Right leg/foot/ankle with 1+ pitting edema) Chest (Breasts): Chest: normal inspection of chest Gastrointestinal (Abdomen): normal bowel sounds, soft, nontender, no hepatosplenomegaly Inspection/Auscultation: + visible herniation (Easily reducible umbilical hernia) Musculoskeletal: Extremities: + extremities abnormal to inspection (Right second toe edematous, erythematous, purulent drainage distal ulcer), no cyanosis and no clubbing Skin: no rashes, warm and dry + erythema (Streaking erythema right dorsal and lateral foot) Neurologic: moves all extremities and awake; no focal motor deficits Psychiatric: A+Ox3, euthymic affect Lymphatic: no lymphedema Results & Data Results & Data ([facility]) Vital Signs (Past 12 Hours) Vital Signs Temp Pulse Pulse Resp BP BP Pulse Ox 12/09/21 07:27 65 20 137/68 96 12/09/21 07:15 36.0 C L 71 20 126/66 95 O2 Del Method 12/09/21 07:27 Room Air 12/09/21 07:15 Room Air Laboratory Results 12/09/21 12/09/21 12/09/21 Range/Units 08:11 08:00 08:00 WBC (4.8-10.8) K/ul RBC (4.63-6.08) M/uL Hgb (14.0-18.0) g/dl Hct (40.1-51.0) % MCV (80.0-100.0) fL MCH (25.0-34.0) pg MCHC (32.0-36.0) g/dL RDW Std Deviation (36.4-46.3) fL RDW Coeff of Alec (11.5-14.5) % Plt Count (130-400) K/uL MPV (9.4-12.4) fL Immature Gran % (Auto) % Neut % (Auto) % Lymph % (Auto) % [place] % (Auto) % Eos % (Auto) % Baso % (Auto) % Neut # (Auto) (1.4-6.5) K/uL Lymph # (Auto) (1.2-3.4) K/uL [place] # (Auto) (0.24-0.82) K/uL Eos # (Auto) (0-0.50) K/uL Baso # (Auto) (0-0.2) K/uL Immature Gran # (Auto) (0.00-0.02) K/uL ESR 56 H (0-20) mm/hr Sodium 135 L (136-145) mmol/L Potassium 4.2 (3.5-5.1) mmol/L Chloride 101 (98-107) mmol/L Carbon Dioxide 29 (21-32) mmol/L Anion Gap 5 (3-11) BUN 24 H (6-23) mg/dl Creatinine 1.05 (0.6-1.4) mg/dl Est Cr Clr Drug Dosing 60.3 ml/min Est GFR ( Amer) 76.8 ml/min Est GFR (Non-Af Amer) 66.3 ml/min BUN/Creatinine Ratio 22.9 H (10-20) Glucose 89 (70-99(Fasting)) mg/dl Lactate (0.4-2.0) mmol/L Calcium 9.4 (8.5-10.1) mg/dl Total Bilirubin 0.4 (0.2-1.0) mg/dl AST 18 (13-39) U/L ALT 12 (7-52) U/L Alkaline Phosphatase 68 (34-104) U/L C-Reactive Protein 6.37 H (0-0.5) mg/dl Total Protein 7.3 (6.0-8.3) gm/dl Albumin 4.0 (3.4-5.0) gm/dl Globulin 3.3 (2.5-4.0) gm/dl Albumin/Globulin Ratio 1.2 (0.9-2) SARS-CoV-2, RNA, NAAT NEGATIVE (NEGATIVE) 12/09/21 12/09/21 Range/Units 08:00 08:00 WBC 6.54 (4.8-10.8) K/ul RBC 4.67 (4.63-6.08) M/uL Hgb 14.7 (14.0-18.0) g/dl Hct 45.0 (40.1-51.0) % MCV 96.4 (80.0-100.0) fL MCH 31.5 (25.0-34.0) pg MCHC 32.7 (32.0-36.0) g/dL RDW Std Deviation 45.2 (36.4-46.3) fL RDW Coeff of Alec 12.7 (11.5-14.5) % Plt Count 216 (130-400) K/uL MPV 9.2 L (9.4-12.4) fL Immature Gran % (Auto) 0.3 % Neut % (Auto) 58.3 % Lymph % (Auto) 27.5 % [place] % (Auto) 11.0 % Eos % (Auto) 2.1 % Baso % (Auto) 0.8 % Neut # (Auto) 3.81 (1.4-6.5) K/uL Lymph # (Auto) 1.80 (1.2-3.4) K/uL [place] # (Auto) 0.72 (0.24-0.82) K/uL Eos # (Auto) 0.14 (0-0.50) K/uL Baso # (Auto) 0.05 (0-0.2) K/uL Immature Gran # (Auto) 0.02 (0.00-0.02) K/uL ESR (0-20) mm/hr Sodium (136-145) mmol/L Potassium (3.5-5.1) mmol/L Chloride (98-107) mmol/L Carbon Dioxide (21-32) mmol/L Anion Gap (3-11) BUN (6-23) mg/dl Creatinine (0.6-1.4) mg/dl Est Cr Clr Drug Dosing ml/min Est GFR ( Amer) ml/min Est GFR (Non-Af Amer) ml/min BUN/Creatinine Ratio (10-20) Glucose (70-99(Fasting)) mg/dl Lactate 0.9 (0.4-2.0) mmol/L Calcium (8.5-10.1) mg/dl Total Bilirubin (0.2-1.0) mg/dl AST (13-39) U/L ALT (7-52) U/L Alkaline Phosphatase (34-104) U/L C-Reactive Protein (0-0.5) mg/dl Total Protein (6.0-8.3) gm/dl Albumin (3.4-5.0) gm/dl Globulin (2.5-4.0) gm/dl Albumin/Globulin Ratio (0.9-2) SARS-CoV-2, RNA, NAAT (NEGATIVE) Diagnostic Findings Foot X-Ray 12/09/21 08:00 XR foot RT min 3V routine CLINICAL HISTORY: Right second toe distal wound, diabetic ulcer COMPARISON: None FINDINGS: Note is made of right second toe soft tissue swelling. There is erosion of the distal phalanx of the right second toe. Lateral projection demonstrates plantar subluxation of the distal phalanx with respect to the middle phalanx phalanx. There is an 8 mm linear density projecting over the plantar soft tissues of the right foot at the level of the distal second metatarsal. There is a smaller adjacent radiodensity. 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 No acute fractures are identified. There is moderate vascular calcification. Plantar calcaneal spurring. IMPRESSION: 1. Erosion of the distal phalanx of the right second toe suggestive of acute osteomyelitis. Associated subluxation at the DIP joint. Right second digit soft tissue swelling. 2. Two small linear metallic foreign bodies within the plantar aspect of the right foot at the level of the distal metatarsals. ACT 112: Negative or not required by law. Electronically signed by: Josh Benavides M.D. 12/09/2021 8:26 AM ECG Additional Comments: ECG on 12/09/2021 with atrial fibrillation with PVCs, rate in the 60s, LBBB, no changes from previous Code Status & VTE Plan Code Status Full code VTE Prophylaxis Plan VTE Prophylaxis will be ordered: Yes PG Care Time/CCT Total # of Minutes Spent Total Time Spent with Patient: Total time spent is greater than 50% in coordination of care (as documented) at patient's floor/unit and/or counseling patient: Coding Level of Care Code 96023 Initial Inpt Care Lvl 3 Diagnoses Osteomyelitis of toe M86.9 Diabetic foot ulcer E11.621; L97.509 History of aortic valve repair Z98.890; Z86.79 Pacemaker Z95.0 Atrial fibrillation I48.91 Atrial fibrillation type: unspecified Diabetes E11.9 Diabetes mellitus complication status: without complication 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: without regional intermodal truck driver use Diabetes mellitus type: type 2 Hypertension I10 Hypertension type: essential hypertension Primary malignant neoplasm of prostate with high risk of recurrence due to [place] score of 8 to 10 and PSA greater than 20 C61 CHF (congestive heart failure) I50.9 (1) Diabetes Diabetes mellitus complication status: without complication Diabetes mellitus intermediate insulin use: without intermediate use Diabetes mellitus type: type 2 Qualified Code(s): E11.9 - Type 2 diabetes mellitus without complications (2) Atrial fibrillation Atrial fibrillation type: unspecified Qualified Code(s): I48.91 - Unspecified atrial fibrillation (3) Hypertension Hypertension type: essential hypertension Qualified Code(s): I10 - Essential (primary) hypertension
[2021-12-09] MEDS ORDERED: CARBOHYDRATES FOR HYPOGLYCEMIA PO PRN (10:46)
[2021-12-09] MEDS ORDERED: GLUCOSE 10 TAB/TUBE PO PRN (10:46)
[2021-12-09] MEDS ORDERED: ONDANSETRON INJ 2 MG/ML 2 ML VIAL IV PRN (10:46)
[2021-12-09] MEDS ORDERED: ACETAMINOPHEN 325 MG TAB PO PRN (10:46)
[2021-12-09] MEDS ORDERED: DEXTROSE 50% 50 ML SYRINGE IV PRN (10:46)
[2021-12-09] MEDS ORDERED: traMADol HCL 50 MG TABLET PO PRN (10:46)
[2021-12-09] MEDS ORDERED: GLUCOSE 40% GEL 15 GM TUBE PO PRN (10:46)
[2021-12-09] MEDS ORDERED: NITROGLYCERIN SL 0.4 MG/TAB TAB SL PRN (10:46)
[2021-12-09] MEDS ORDERED: GLUCAGON FOR INJ 1 MG VIAL SQ PRN (10:46)
[2021-12-09] MEDS ORDERED: POLYETHYLENE (MIRALAX) 17 GM PACK PO PRN (10:46)
--- NOTE | 2021-12-09 11:21 | Cardiology Consultation ---
Date of Consultation December 09, 2021 History of Present Illness Reason for Consultation: Preoperative evaluation, coronary disease, TAVR, and atrial fibrillation Attending Physician: Erin Huerta MD History of Present Illness Luís is a very pleasant 81-year-old male who works on a regular basis. He had a toenail that was cutting into his other toe he cut the toenail but unfortunately cut it too close to his the skin and ended up with an area of bleeding and infection. He was seen by his primary care provider on Saturday we will arrange for him to be seen in wound clinic. He had swelling of his foot and streaking across his right foot today and his was concerned and brought him to the emergency room. He denies any fevers or chills or sweats. He denies any shaking chills. From a cardiac standpoint he has been stable denies any progressive dyspnea. Denies any worsening heart failure symptoms. He has had no chest pain or chest pressure. He is unaware of any palpitations or fluttering. He is remains on chronic anticoagulation without any dark stools or black stools or obvious GI bleeding. I recently saw him in October has been stable since. The rest of complete her systems otherwise negative Allergies Allergy/AdvReac Type Severity Reaction Status Date / Time No Known Allergies Allergy Verified 11/08/21 08:07 Home Medications Medication Instructions Recorded Confirmed Type apixaban 5 mg tablet (Eliquis) 5 mg PO BID 01/19/19 12/09/21 History metformin 500 mg tablet 500 mg PO BID 01/19/19 12/09/21 History multivitamin 1 tab PO DAILY 01/19/19 12/09/21 History tamsulosin 0.4 mg capsule (Flomax) 0.4 mg PO DAILY 04/06/19 12/09/21 History furosemide 20 mg tablet (Lasix) 20 mg PO DIRECTED PRN swelling 05/08/19 12/09/21 History dutasteride 0.5 mg capsule 0.5 mg PO DAILY #90 caps 10/28/19 12/09/21 Rx celecoxib 200 mg capsule (Celebrex) 200 mg PO BID 11/08/21 12/09/21 History clobetasol 0.05 % topical cream 1 applic topical BID 11/08/21 12/09/21 History diltiazem HCl 30 mg tablet 30 mg PO BID 11/08/21 12/09/21 History linagliptin 5 mg tablet (Tradjenta) 5 mg PO DAILY 11/08/21 12/09/21 History metoprolol succinate 100 mg 50 mg PO HS 11/08/21 12/09/21 History tablet,extended release 24 hr pravastatin 20 mg tablet 20 mg PO DAILY 11/08/21 12/09/21 History sacubitril 24 mg-valsartan 26 mg 1 tab PO BID 11/08/21 12/09/21 History tablet (Entresto) tramadol 50 mg tablet 50 mg PO Q6H PRN Pain 11/08/21 12/09/21 History sulfamethoxazole 400 1 tab PO BID 12/09/21 12/09/21 History mg-trimethoprim 80 mg tablet (Bactrim) Patient History Medical History Arthritis Atrial fibrillation CHF (congestive heart failure) Complication, blocked Patrick catheter Diabetes Diarrhea Elevated prostate specific antigen (PSA) Enlarged prostate Hypertension Hyponatremia Osteoarthritis of left shoulder region Pacemaker [employer] [id number] Micra VR TCP Serial # [id number] Postoperative urinary retention Prostate nodule Severe aortic stenosis Surgical History History of aortic valve repair History of knee replacement History of permanent cardiac pacemaker placement [employer] [id number] Micra VR TCP Serial # [id number] Hx of shoulder replacement Post-operative state (07/06/13) Post-operative state (08/17/13) Family History Brother Cancer 3 brothers/ prostate Other Family history non-contributory Social History Smoking Status: Never smoker Hx Alcohol Use: No Hx Substance Use: No Preferred Language: German Communication Ability: Effective Hearing Ability: Normal Nursing Service Administrator Required: No Beliefs That Will Affect Care: None marital status: Current Living Situation: Spouse current occupational status: retired 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 Feels Safe at Home: Yes Diet Comment: Diabetic diet during the past year weight has: remained stable Assistive Devices: Cane, Denture - Upper and Denture - Lower Results & Data ([place]) Vital Signs (Past 12 Hours) Vital Signs Temp Pulse Pulse Resp BP BP Pulse Ox 12/09/21 10:32 65 12/09/21 10:19 51 L 14 126/68 95 12/09/21 09:00 51 L 14 126/68 12/09/21 07:27 65 20 137/68 96 12/09/21 07:15 36.0 C L 71 20 126/66 95 O2 Del Method 12/09/21 10:32 12/09/21 10:19 Room Air 12/09/21 09:00 12/09/21 07:27 Room Air 12/09/21 07:15 Room Air He is awake alert and oriented x3 is in no acute distress he looks his stated age H EENT mildly reduced carotid upstrokes no evidence of carotid bruits Lungs: Clear to auscultation bilaterally no rales rhonchi or wheezing Heart: Irregular rate and rhythm no appreciable murmurs Abdomen: Soft nontender and nondistended positive bowel sounds Extremities: No clubbing cyanosis or edema of the ankles bilaterally Psychiatric his affect appeared appropriate \ IMPRESSIONS: 1. Preoperative Evaluation prior to possible partial toe amputation 2. History of severe aortic stenosis status post TAVR April 2019 3. Postoperative alternating bundle status post [employer] Micra pacemaker 4. Mild left ventricular dysfunction with an EF in the range of 45% sent July 2020 with type III diastolic dysfunction and low normal RV systolic function 5. Free procedure cardiac catheterization in 2019 with a 60 to 70% lesion in a large diagonal branch 6. Chronic anticoagulation with Eliquis 7. Hypertension 8. Hyperlipidemia 9. Chronic atrial fibrillation From my standpoint he is stable from a preoperative standpoint he can proceed with surgery if he needs it I believe his risk of cardiac complications in the range of 2 to 3%. The risks include heart attack dying from cardiac causes arrhythmia although he is already in atrial fibrillation and heart failure. The greatest risk is going to be heart failure secondary to both systolic and diastolic dysfunction. I would be very judicious with his fluids in the perioperative period. As long as he can eat I would allow him to eat and drink on his own to avoid the need for diuretics post procedure. His current diuretic regiment has been as needed and he has not needed any diuretics recently. His anticoagulation can be held 48 hours prior to the procedure and restarted after the procedure when its acceptable from a bleeding standpoint.
--- NOTE | 2021-12-09 11:41 | Pharmacy Report ---
Pharmacy PK ABX Note - Date of Service December 09, 2021 - Assessment and Plan Assessment 81 year old M receiving Vancomycin and Zosyn for treatment of possible osteomyelitis. * PMHx significant for T2DM. No recent admission but recently on Bactrim as outpatient. * Presents with possible toe infection following cutting toenails. Toe XR suspicious for acute osteomyelitis. * Afebrile and without leukocytosis. Renal fxn appears to be at baseline. Plan Vancomycin * Loading dose: 2000 mg IV x 1 * Maintenance dose: 750 mg IV every 12 hours * Regimen is predicted to achieve target AUC/MALCOLM of 400-600 mg/L.hr * Random level ordered for: 12/11/21 Zosyn * 4.5 g IV loading dose followed by 4.5 g IV every 8 hours Pharmacy will continue to follow and will adjust dose/frequency as necessary. Thank you. Pharmacy has transitioned to AUC monitoring for vancomycin. AUC/MALCOLM is the preferred PK/PD target and is associated with decreased risk of nephrotoxicity compared to traditional trough targets.
[2021-12-09] MEDS: INSULIN ASPART PER UNIT SC SCH ×3 (12:31→20:39)
[2021-12-09] MEDS: PIPERACILLIN/TAZOBACTAM 4.5 GM in DEXTROSE 5% 100 ML IV SCH ×2 (13:39→21:10)
[2021-12-09] MEDS: DUTASTERIDE: ORDER AWAITING ACTION SCH (13:44)
--- NOTE | 2021-12-09 14:17 | Emergency Department Note ---
Impression & Plan Acute osteomyelitis of toe of right foot ED Provider Note CHIEF COMPLAINT: Right foot infection HISTORY OF PRESENT ILLNESS: This 81-year-old male patient presents to the emergency department complaints of a right second toe infection after cutting his toenails 2 weeks ago. The patient states he has diabetic neuropathy and did not feel that he cut himself. After about a week he realized that the toe was red and inflamed. He saw his physician was placed on Bactrim. He is waiting a phone call from the wound care clinic however things have progressed despite the antibiotic. This morning the patient's notes that the toe is more swollen with redness tracking up to the middle of the leg. He denies any fevers. His states she has noticed pus draining from the tip of the toe. Patient denies ever seeing a acquisition specialist. REVIEW OF SYSTEMS: A review of systems was performed with positives and pertinent negatives listed in the history of present illness. 10 systems were r eviewed and are otherwise negative. ALLERGIES: see below MEDICATIONS: see below PMH: see below SOCIAL HISTORY: see below DDx: Cellulitis, diabetic foot ulcer, osteomyelitis, DVT, fracture, dislocation PHYSICAL EXAM: Vital signs reviewed. General: Well 81 yo male, in no significant distress. HEENT: No scleral icterus, PERRLA, neck supple. Cardiovascular: Irregular but rate controlled. Pulmonary: Clear to auscultation bilaterally, normal work of breathing. Abdomen: Soft, nontender, nondistended, positive bowel sounds. Musculoskeletal: Atraumatic, minimal peripheral edema. The second toe on the right foot has a distal ulcer. Surrounding erythema and swelling with lymphangitic streaking the lateral aspect of the foot through the mid costa. Neurologic: Patient awake alert and oriented x 3 Skin: Warm, dry, no rash EMERGENCY DEPARTMENT COURSE/MDM: Patient was evaluated and appeared to be in no significant distress. IV access was obtained and laboratory work was drawn. Hydrated with normal saline solution. Laboratory work reveals a mild elevation of the WBC and lactate. Blood cultures were obtained and the patient was medicated with IV Zosyn. X-ray of the right foot reveals some erosive changes of the distal phalanx of the second toe. This is consistent with osteomyelitis. The elevation in the sed rate and CRP would also be consistent. A wound culture was obtained after the wound was slightly debrided. Bony prominence is noted. Patient's case was discussed with service who will evaluate the patient for admission and further management. MONITORING: An order for cardiac monitoring was placed and the patient is noted to be in a normal sinus rhythm at 65 beats per minute. RADIOLOGY: See below DISPOSITION: Admission Past Med/Surg History Medical History Arthritis Atrial fibrillation CHF (congestive heart failure) Complication, blocked Patrick catheter Diabetes Diarrhea Elevated prostate specific antigen (PSA) Enlarged prostate Hypertension Hyponatremia Osteoarthritis of left shoulder region Pacemaker Boatbound [id number] Micra VR TCP Serial # [id number] Postoperative urinary retention Prostate nodule Severe aortic stenosis Surgical History History of aortic valve repair History of knee replacement History of permanent cardiac pacemaker placement Boatbound [id number] Micra VR TCP Serial # [id number] Hx of shoulder replacement Post-operative state (07/06/13) Post-operative state (08/17/13) Family History Brother Cancer 3 brothers/ prostate Other Family history non-contributory Social History Smoking Status: Never smoker Hx Alcohol Use: No Hx Substance Use: No Preferred Language: Lithuanian Communication Ability: Effective Hearing Ability: Normal Postal Service Window Clerk Required: No Beliefs That Will Affect Care: None marital status: Current Living Situation: Spouse current occupational status: retired 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 Feels Safe at Home: Yes Diet Comment: Diabetic diet during the past year weight has: remained stable Assistive Devices: Cane, Denture - Upper and Denture - Lower Allergies Allergies Allergy/AdvReac Type Severity Reaction Status Date / Time No Known Allergies Allergy Verified 11/08/21 08:07 Home Meds Home Medications Medication Instructions Recorded Confirmed apixaban 5 mg tablet (Eliquis) 5 mg PO BID 01/19/19 12/09/21 metformin 500 mg tablet 500 mg PO BID 01/19/19 12/09/21 multivitamin 1 tab PO DAILY 01/19/19 12/09/21 tamsulosin 0.4 mg capsule (Flomax) 0.4 mg PO DAILY 04/06/19 12/09/21 furosemide 20 mg tablet (Lasix) 20 mg PO DIRECTED PRN swelling 05/08/19 12/09/21 celecoxib 200 mg capsule (Celebrex) 200 mg PO BID 11/08/21 12/09/21 clobetasol 0.05 % topical cream 1 applic topical BID 11/08/21 12/09/21 diltiazem HCl 30 mg tablet 30 mg PO BID 11/08/21 12/09/21 linagliptin 5 mg tablet (Tradjenta) 5 mg PO DAILY 11/08/21 12/09/21 metoprolol succinate 100 mg 50 mg PO HS 11/08/21 12/09/21 tablet,extended release 24 hr pravastatin 20 mg tablet 20 mg PO DAILY 11/08/21 12/09/21 sacubitril 24 mg-valsartan 26 mg 1 tab PO BID 11/08/21 12/09/21 tablet (Entresto) tramadol 50 mg tablet 50 mg PO Q6H PRN Pain 11/08/21 12/09/21 sulfamethoxazole 400 1 tab PO BID 12/09/21 12/09/21 mg-trimethoprim 80 mg tablet (Bactrim) Previous Rx's Medication Instructions Recorded dutasteride 0.5 mg capsule 0.5 mg PO DAILY #90 caps 10/28/19 Results & Data (ED) Vital Signs Vital Signs - 24 hr 12/09/21 07:15 12/09/21 07:27 12/09/21 09:00 Temperature 36.0 C L Temperature Source Temporal Artery Scan Pulse Rate 71 51 L Pulse Rate [Apical] 65 Pulse Rhythm Regular Pulse Rhythm [Apical] Irregular Pulse Strength Normal Respiratory Rate 20 20 14 Respiratory Effort / Characteristics Non-Labored Spontaneous Respiratory Depth Normal Respiratory Pattern Regular Blood Pressure 126/66 126/68 Blood Pressure [Right Arm] 137/68 Blood Pressure Mean 86 87 Blood Pressure Mean [Right Arm] 91 Blood Pressure Position Sitting Blood Pressure Position [Right Arm] Sitting Pulse Oximetry 95 96 Oxygen Delivery Method Room Air Room Air Sepsis Recent Fever Within 48 Hours No Sepsis New/Unexplained Change in Mental Status No Sepsis Action Taken by Nursing No Action Required Home Medications Current Medication List: was personally reviewed by me Laboratory Data Attestation: I reviewed the patient's lab results. Result diagrams: 12/09/21 08:00 12/09/21 08:00 Lab Results 12/09/21 12/09/21 12/09/21 Range/Units 08:00 08:00 08:00 WBC 6.54 (4.8-10.8) K/ul RBC 4.67 (4.63-6.08) M/uL Hgb 14.7 (14.0-18.0) g/dl Hct 45.0 (40.1-51.0) % MCV 96.4 (80.0-100.0) fL MCH 31.5 (25.0-34.0) pg MCHC 32.7 (32.0-36.0) g/dL RDW Std Deviation 45.2 (36.4-46.3) fL RDW Coeff of Alec 12.7 (11.5-14.5) % Plt Count 216 (130-400) K/uL MPV 9.2 L (9.4-12.4) fL Immature Gran % (Auto) 0.3 % Neut % (Auto) 58.3 % Lymph % (Auto) 27.5 % [place] % (Auto) 11.0 % Eos % (Auto) 2.1 % Baso % (Auto) 0.8 % Neut # (Auto) 3.81 (1.4-6.5) K/uL Lymph # (Auto) 1.80 (1.2-3.4) K/uL [place] # (Auto) 0.72 (0.24-0.82) K/uL Eos # (Auto) 0.14 (0-0.50) K/uL Baso # (Auto) 0.05 (0-0.2) K/uL Immature Gran # (Auto) 0.02 (0.00-0.02) K/uL ESR (0-20) mm/hr Sodium 135 L (136-145) mmol/L Potassium 4.2 (3.5-5.1) mmol/L Chloride 101 (98-107) mmol/L Carbon Dioxide 29 (21-32) mmol/L Anion Gap 5 (3-11) BUN 24 H (6-23) mg/dl Creatinine 1.05 (0.6-1.4) mg/dl Est Cr Clr Drug Dosing 60.3 ml/min Est GFR ( Amer) 76.8 ml/min Est GFR (Non-Af Amer) 66.3 ml/min BUN/Creatinine Ratio 22.9 H (10-20) Glucose 89 (70-99(Fasting)) mg/dl Lactate 0.9 (0.4-2.0) mmol/L Calcium 9.4 (8.5-10.1) mg/dl Total Bilirubin 0.4 (0.2-1.0) mg/dl AST 18 (13-39) U/L ALT 12 (7-52) U/L Alkaline Phosphatase 68 (34-104) U/L C-Reactive Protein 6.37 H (0-0.5) mg/dl Total Protein 7.3 (6.0-8.3) gm/dl Albumin 4.0 (3.4-5.0) gm/dl Globulin 3.3 (2.5-4.0) gm/dl Albumin/Globulin Ratio 1.2 (0.9-2) SARS-CoV-2, RNA, NAAT (NEGATIVE) 12/09/21 12/09/21 Range/Units 08:00 08:11 WBC (4.8-10.8) K/ul RBC (4.63-6.08) M/uL Hgb (14.0-18.0) g/dl Hct (40.1-51.0) % MCV (80.0-100.0) fL MCH (25.0-34.0) pg MCHC (32.0-36.0) g/dL RDW Std Deviation (36.4-46.3) fL RDW Coeff of Alec (11.5-14.5) % Plt Count (130-400) K/uL MPV (9.4-12.4) fL Immature Gran % (Auto) % Neut % (Auto) % Lymph % (Auto) % [place] % (Auto) % Eos % (Auto) % Baso % (Auto) % Neut # (Auto) (1.4-6.5) K/uL Lymph # (Auto) (1.2-3.4) K/uL [place] # (Auto) (0.24-0.82) K/uL Eos # (Auto) (0-0.50) K/uL Baso # (Auto) (0-0.2) K/uL Immature Gran # (Auto) (0.00-0.02) K/uL ESR 56 H (0-20) mm/hr Sodium (136-145) mmol/L Potassium (3.5-5.1) mmol/L Chloride (98-107) mmol/L Carbon Dioxide (21-32) mmol/L Anion Gap (3-11) BUN (6-23) mg/dl Creatinine (0.6-1.4) mg/dl Est Cr Clr Drug Dosing ml/min Est GFR ( Amer) ml/min Est GFR (Non-Af Amer) ml/min BUN/Creatinine Ratio (10-20) Glucose (70-99(Fasting)) mg/dl Lactate (0.4-2.0) mmol/L Calcium (8.5-10.1) mg/dl Total Bilirubin (0.2-1.0) mg/dl AST (13-39) U/L ALT (7-52) U/L Alkaline Phosphatase (34-104) U/L C-Reactive Protein (0-0.5) mg/dl Total Protein (6.0-8.3) gm/dl Albumin (3.4-5.0) gm/dl Globulin (2.5-4.0) gm/dl Albumin/Globulin Ratio (0.9-2) SARS-CoV-2, RNA, NAAT NEGATIVE (NEGATIVE) Administered Medications Piperacillin Sod/Tazobactam (Sod 4.5 gm/ Dextrose) 120 mls @ 30 mls/hr IV Q8H MANJIT; Protocol Stop: 01/20/22 13:59 Last Admin: 12/09/21 13:39 Dose: 30 mls/hr Documented By: VALERIANO Insulin Aspart (Insulin Aspart Per Unit) 0 units SC ACHS MANJIT Stop: 01/08/22 11:29 Last Admin: 12/09/21 12:31 Dose: Not Given Documented By: VALERIANO Miscellaneous (Dutasteride: Order Awaiting Action) 1 each N/A QS [facility] Stop: 01/08/22 15:59 Last Admin: 12/09/21 13:44 Dose: Not Given Documented By: VALERIANO Discontinued Medications Piperacillin Sod/Tazobactam Sod (Zosyn) 4.5 gm in 120 mls @ 240 mls/hr IV NOW ONE Stop: 12/09/21 08:33 Last Infusion: 12/09/21 09:17 Dose: 0 mls/hr Documented By: Admin: 12/09/21 08:25 Dose: 240 mls/hr Documented By: CARON Vancomycin HCl 2,000 mg/ (Sodium Chloride) 540 mls @ 200 mls/hr IV NOW ONE Stop: 12/09/21 11:30 Last Infusion: 12/09/21 13:07 Dose: 0 mls/hr Documented By: [id number] Admin: 12/09/21 09:17 Dose: 200 mls/hr Documented By: CARON Imaging Data Radiologist's Impression: Foot X-Ray 12/09/21 08:00 XR foot RT min 3V routine CLINICAL HISTORY: Right second toe distal wound, diabetic ulcer COMPARISON: None FINDINGS: Note is made of right second toe soft tissue swelling. There is erosion of the distal phalanx of the right second toe. Lateral projection demonstrates plantar subluxation of the distal phalanx with respect to the middle phalanx phalanx. There is an 8 mm linear density projecting over the plantar soft tissues of the right foot at the level of the distal second metatarsal. There is a smaller adjacent radiodensity. 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 No acute fractures are identified. There is moderate vascular calcification. Plantar calcaneal spurring. IMPRESSION: 1. Erosion of the distal phalanx of the right second toe suggestive of acute osteomyelitis. Associated subluxation at the DIP joint. Right second digit soft tissue swelling. 2. Two small linear metallic foreign bodies within the plantar aspect of the right foot at the level of the distal metatarsals. ACT 112: Negative or not required by law. Electronically signed by: Josh Benavides M.D. 12/09/2021 8:26 AM Blood Pressure Blood Pressure Findings: Normal blood pressure Blood Pressure Disposition: did not require urgent referral Discharge Plan Visit Data Chief Complaint: Foot Injury/Pain Stated Complaint: FOOT SWOLLEN, DIABETIC ED Provider: Angeles Mistry Discharge Problem: Acute osteomyelitis of toe of right foot Patient Disposition: Admitted As Inpatient Discharge Instructions Interventions: ED Discharge Assessment Last Done: 12/09/21 10:19
--- NOTE | 2021-12-09 16:00 | Orthopedic Consultation ---
Date of Service December 09, 2021 Assessment & Plan (1) Acute osteomyelitis of toe of right foot: I discussed his diagnosis and treatment options with him and his at bedside. I recommended an amputation of the second toe. I do not think IV antibiotics or wound care will heal this. There is a chance that the infection becomes worse. He and his agreed to the amputation of the second toe. He understands the risk benefits alternatives procedure elected proceed. Time was spent describing the procedure and postop expectations. The decision was made for surgery. He will be n.p.o. past midnight tonight. I plan to do the procedure tomorrow afternoon. History of Present Illness Reason for Consultation: Osteomyelitis right second toe Requesting Physician: . Attending Physician: Erin Huerta MD Luís is a pleasant 81-year-old male who is well-known to me. He cut his right second toe while cutting his toenail over a week ago. Unfortunately it led to an ulceration. He began having infection of his second toe. He went to his primary care physician and was started on an oral antibiotic. Unfortunately it was not helping. Redness with streaking from the toe into his midfoot. He came to the emergency room. He was admitted to the medical service. He has had elevated sed rate at CRP. He is a diabetic with diabetic neuropathy. Orthopedics was consulted to evaluate and treat.. Allergies Allergy/AdvReac Type Severity Reaction Status Date / Time No Known Allergies Allergy Verified 11/08/21 08:07 Home Medications Medication Instructions Recorded Confirmed Type apixaban 5 mg tablet (Eliquis) 5 mg PO BID 01/19/19 12/09/21 History metformin 500 mg tablet 500 mg PO BID 01/19/19 12/09/21 History multivitamin 1 tab PO DAILY 01/19/19 12/09/21 History tamsulosin 0.4 mg capsule (Flomax) 0.4 mg PO DAILY 04/06/19 12/09/21 History furosemide 20 mg tablet (Lasix) 20 mg PO DIRECTED PRN swelling 05/08/19 12/09/21 History dutasteride 0.5 mg capsule 0.5 mg PO DAILY #90 caps 10/28/19 12/09/21 Rx celecoxib 200 mg capsule (Celebrex) 200 mg PO BID 11/08/21 12/09/21 History clobetasol 0.05 % topical cream 1 applic topical BID 11/08/21 12/09/21 History diltiazem HCl 30 mg tablet 30 mg PO BID 11/08/21 12/09/21 History linagliptin 5 mg tablet (Tradjenta) 5 mg PO DAILY 11/08/21 12/09/21 History metoprolol succinate 100 mg 50 mg PO HS 11/08/21 12/09/21 History tablet,extended release 24 hr pravastatin 20 mg tablet 20 mg PO DAILY 11/08/21 12/09/21 History sacubitril 24 mg-valsartan 26 mg 1 tab PO BID 11/08/21 12/09/21 History tablet (Entresto) tramadol 50 mg tablet 50 mg PO Q6H PRN Pain 11/08/21 12/09/21 History sulfamethoxazole 400 1 tab PO BID 12/09/21 12/09/21 History mg-trimethoprim 80 mg tablet (Bactrim) Past Med/Surg History Medical History Arthritis Atrial fibrillation CHF (congestive heart failure) Complication, blocked Patrick catheter Diabetes Diarrhea Elevated prostate specific antigen (PSA) Enlarged prostate Hypertension Hyponatremia Osteoarthritis of left shoulder region Pacemaker Prieto Battery [id number] Micra VR TCP Serial # [id number] Postoperative urinary retention Prostate nodule Severe aortic stenosis Surgical History History of aortic valve repair History of knee replacement History of permanent cardiac pacemaker placement [id number] Micra VR TCP Serial # [id number] Hx of shoulder replacement Post-operative state (07/06/13) Post-operative state (08/17/13) Family History Brother Cancer 3 brothers/ prostate Other Family history non-contributory Social History Smoking Status: Never smoker Hx Alcohol Use: No Hx Substance Use: No Preferred Language: [place] Communication Ability: Effective Hearing Ability: Normal Diathermy Equipment Repairer Required: No Beliefs That Will Affect Care: None marital status: Current Living Situation: Spouse current occupational status: retired 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 Physical Exam On physical examination of the right foot, there is a 1 cm ulceration at the distal aspect of his right second toe. There is some purulent discharge coming from it. There is some redness of the toe. There is a little bit of streaking redness that goes up into the midfoot. The remainder of his skin quality looks pretty good.. Constitutional WD/WN, vitals as above Eyes PERRL, conjunctivae normal, anicteric sclerae ENMT external ear and nose normal, oropharynx normal Neck trachea midline, no thyromegaly Respiratory normal respiratory effort, lungs clear to auscultation Cardiovascular RRR, no murmur, no edema Gastrointestinal (Abdomen) normal bowel sounds, soft, nontender, no hepatosplenomegaly Skin no rashes, warm and dry Psychiatric A+Ox3, euthymic affect Results & Data Results & Data Laboratory Results . Diagnostic Findings X-rays of the right foot do show some erosive changes at the distal phalanx of the second toe. This is suggestive of osteomyelitis.. PG Care Time/CCT Total # of Minutes Spent Total Time Spent with Patient: Total time spent is greater than 50% in coordination of care (as documented) at patient's floor/unit and/or counseling patient: Coding Level of Care Code None Diagnoses Acute osteomyelitis of toe of right foot M86.171
[2021-12-09] MEDS: VANCOMYCIN HCL 750 MG in SODIUM CHLORIDE 0.9% 250 ML IV SCH (17:50)
[2021-12-09] MEDS: METOPROLOL SUCC 50MG EXT REL TAB PO SCH (20:02)
[2021-12-09] MEDS: CeleBREX 200 MG CAP PO SCH (20:04)
[2021-12-09] MEDS: dilTIAZem HCL 30 MG TAB PO SCH (20:08)
[2021-12-09] MEDS ORDERED: APIXABAN 5 MG TABLET PO SCH (21:00)
[2021-12-09] MEDS: VALSARTAN/SACUBITRIL 26/24MG TAB PO SCH (21:09)
[2021-12-10] MEDS: DUTASTERIDE: ORDER AWAITING ACTION SCH ×3 (00:28→16:29)
[2021-12-10] MEDS: PIPERACILLIN/TAZOBACTAM 4.5 GM in DEXTROSE 5% 100 ML IV SCH ×3 (06:17→21:49)
[2021-12-10] MEDS: VANCOMYCIN HCL 750 MG in SODIUM CHLORIDE 0.9% 250 ML IV SCH ×2 (06:17→18:08)
[2021-12-10 07:36] LABS: Creatinine Clr Calc Pharmacy 53.1 ml/min; Est GFR (African American) 67.4 ml/min; Est GFR (Non-African American) 58.1 ml/min
[2021-12-10] MEDS: INSULIN ASPART PER UNIT SC SCH ×4 (08:32→21:02)
[2021-12-10] MEDS: dilTIAZem HCL 30 MG TAB PO SCH ×2 (08:37→21:03)
[2021-12-10] MEDS: CeleBREX 200 MG CAP PO SCH ×2 (08:39→21:03)
[2021-12-10] MEDS: MULTIVITAMIN TAB PO SCH (08:39)
[2021-12-10] MEDS: VALSARTAN/SACUBITRIL 26/24MG TAB PO SCH ×2 (08:41→21:03)
[2021-12-10] MEDS: TAMSULOSIN HCL 0.4 MG CAP PO SCH (08:41)
[2021-12-10] MEDS: PRAVASTATIN SOD 20 MG TAB PO SCH (08:43)
[2021-12-10] MEDS ORDERED: LACTATED RINGER'S 1,000 ML IV SCH (08:45)
--- NOTE | 2021-12-10 12:05 | Anesthesiology Consultation ---
Date of Service December 10, 2021 Assessment & Plan Chart Review Chart Review: Acceptable Risk for Surgery and Patient NOT seen in Pre Admission Testing Consults Requested none ASA ASA4 History Surgery Operation Date: 12/10/21 12:00 Proposed Procedures p Amputation Toe(Right) - Carlos Rodríguez, Height/Weight Height: 5 ft 5 in Weight: 97.4 kg Allergies Allergy/AdvReac Type Severity Reaction Status Date / Time No Known Allergies Allergy Verified 11/08/21 08:07 Medications Home Medications Medication Instructions Recorded Confirmed Last Taken apixaban 5 mg tablet (Eliquis) 5 mg PO BID 01/19/19 12/09/21 12/08/21 21:00 metformin 500 mg tablet 500 mg PO BID 01/19/19 12/09/21 12/08/21 21:00 multivitamin 1 tab PO DAILY 01/19/19 12/09/21 12/08/21 tamsulosin 0.4 mg capsule (Flomax) 0.4 mg PO DAILY 04/06/19 12/09/21 12/09/21 furosemide 20 mg tablet (Lasix) 20 mg PO DIRECTED PRN swelling 05/08/19 12/09/21 12/09/21 dutasteride 0.5 mg capsule 0.5 mg PO DAILY #90 caps 10/28/19 12/09/21 12/08/21 1 2:00 celecoxib 200 mg capsule (Celebrex) 200 mg PO BID 11/08/21 12/09/21 12/09/21 clobetasol 0.05 % topical cream 1 applic topical BID 11/08/21 12/09/21 Unknown diltiazem HCl 30 mg tablet 30 mg PO BID 11/08/21 12/09/21 12/09/21 linagliptin 5 mg tablet (Tradjenta) 5 mg PO DAILY 11/08/21 12/09/21 12/09/21 metoprolol succinate 100 mg 50 mg PO HS 11/08/21 12/09/21 12/08/21 21:00 tablet,extended release 24 hr pravastatin 20 mg tablet 20 mg PO DAILY 11/08/21 12/09/21 12/09/21 sacubitril 24 mg-valsartan 26 mg 1 tab PO BID 11/08/21 12/09/21 12/08/21 21:00 tablet (Entresto) tramadol 50 mg tablet 50 mg PO Q6H PRN Pain 11/08/21 12/09/21 12/09/21 sulfamethoxazole 400 1 tab PO BID 12/09/21 12/09/21 12/09/21 mg-trimethoprim 80 mg tablet (Bactrim) Active Medications Generic Name Dose Route Start Last Admin Trade Name Julia PRN Reason Stop Dose Admin Celecoxib 200 mg 12/09/21 21:00 12/10/21 08:39 Celebrex 200 Mg Cap PO 01/08/22 20:59 200 mg BID MANJIT Administration Diltiazem HCl 30 mg 12/09/21 21:00 12/10/21 08:37 Diltiazem Hcl 30 Mg Tab PO 01/08/22 20:59 Not Given BID MANJIT Piperacillin Sod/Tazobactam 120 mls @ 30 mls/hr 12/09/21 14:00 12/10/21 10:27 Sod 4.5 gm/ Dextrose IV 01/20/22 13:59 Infused Q8H MANJIT Infusion Protocol Vancomycin HCl 750 mg/ Sodium 265 mls @ 200 mls/hr 12/09/21 18:00 12/10/21 08:05 Chloride IV 01/20/22 17:59 Infused Q12H MANJIT Infusion Protocol Lactated Ringer's 1,000 mls @ 80 mls/hr 12/10/21 08:45 12/10/21 10:08 Lr IV 01/09/22 08:44 80 mls/hr .[id number] MANJIT Administration Insulin Aspart 0 units 12/09/21 11:30 12/10/21 08:32 Insulin Aspart Per Unit SC 01/08/22 11:29 1 units ACHS MANJIT Administration Metoprolol Succinate 50 mg 12/09/21 21:00 12/09/21 20:02 Metoprolol Succ 50mg Ext Rel Tab PO 01/08/22 20:59 50 mg HS MANJIT Administration Miscellaneous 1 each 12/09/21 16:00 12/10/21 09:10 Dutasteride: Order Awaiting Action N/A 01/08/22 15:59 Not Given QS MANJIT Multivitamins 1 tab 12/10/21 09:00 12/10/21 08:39 Multivitamin Tab PO 01/09/22 08:59 1 tab DAILY MANJIT Administration Pravastatin Sodium 20 mg 12/10/21 09:00 12/10/21 08:43 Pravastatin Sod 20 Mg Tab PO 01/09/22 08:59 20 mg DAILY MANJIT Administration Sacubitril/Valsartan 1 tab 12/09/21 21:00 12/10/21 08:41 Valsartan/Sacubitril 26/24mg Tab PO 01/08/22 20:59 1 tab BID MANJIT Administration Tamsulosin HCl 0.4 mg 12/10/21 09:00 12/10/21 08:41 Tamsulosin Hcl 0.4 Mg Cap PO 01/09/22 08:59 0.4 mg DAILY MANJIT Administration NPO Date Last Intake of Fluids: 12/10/21 Time Last Intake of Fluids: 08:30 Last Intake of Fluids Comment: Meds Date Last Intake of Solids: 12/09/21 Time Last Intake of Solids: 17:00 Last Intake of Solids Comment: Supper Past Medical History Medical History Arthritis Atrial fibrillation CHF (congestive heart failure) Complication, blocked Patrick catheter Diabetes Diarrhea Elevated prostate specific antigen (PSA) Enlarged prostate Hypertension Hyponatremia Osteoarthritis of left shoulder region Pacemaker SpectraFluidics [id number] Micra VR TCP Serial # [id number] Postoperative urinary retention Prostate nodule Severe aortic stenosis Exercise / Class Metabolic Activity III < 4 Walking/Shop/Light housework Past Family History Family History Brother Cancer 3 brothers/ prostate Other Family history non-contributory Past Surgical History Surgical History History of aortic valve repair History of knee replacement History of permanent cardiac pacemaker placement SpectraFluidics [id number] Micra VR TCP Serial # [id number] Hx of shoulder replacement Post-operative state (07/06/13) Post-operative state (08/17/13) Past Anesthesia History No Hx of Anesthesia Complications and No Family Hx of Anesthesia Complications History of PONV No Hx of PONV and No Hx of Motion Sickness Social History Smoking Status: Never smoker Hx Alcohol Use: No Hx Substance Use: No substance use type: does not use Physical Exam Vital Signs Last Vital Signs Temp 36.5 C 12/10/21 11:30 Pulse 77 12/10/21 11:30 Resp 18 12/10/21 11:30 BP 121/80 12/10/21 11:30 Pulse Ox 92 12/10/21 11:30 O2 Del Method 12/10/21 11:30 Testing Laboratory Results 12/09/21 08:00 12/10/21 06:39 12/09/21 08:25 Aerobic Blood Culture - Preliminary Blood No growth in Aerobic bottle after 24 hours. Anaerobic Blood Culture - Preliminary No growth in Anaerobic bottle after 24 hours. 12/09/21 08:00 Aerobic Blood Culture - Preliminary Blood No growth in Aerobic bottle after 24 hours. Anaerobic Blood Culture - Preliminary No growth in Anaerobic bottle after 24 hours. 12/09/21 08:00 Gram Stain - Final Toe,Right Second Aerobic and Anaerobic Culture - Preliminary Staphylococcus species 12/10/21 12/10/21 11:41 07:55 POC Glucose 115 H 157 H Electrocardiogram Date: 12/09/21 Findings: + AFIB @ (@ 58 w/slow ventricular response w/ occas. V paced complexes) and + LBBB Echocardiogram Date: 05/08/19 EF: 55% LV Function: normal RWMA: + none Other Findings: + atrial enlargement (RA/LA moderate) and + LVH (mild) mild TR Moderate MAC Bioprosthetic AV well-seated w/ NL gradient Cardiac Catheterization Date: 04/06/19 Findings: + RCA (prox. LI's;30% mid;30% distal), + LMA (Luminal irregularities), + LCX (40% mid) and + pertinent finding (LAD-prox.LI's;mid 30%;distal LI's;D1- prox. 60-70%) Intervention: + none
--- NOTE | 2021-12-10 14:07 | History & Physical Bridge Note ---
Date of Service December 10, 2021 History & Physical Bridge Note I have examined the patient, reviewed the History & Physical and in the interval since the performance of the History & Physical I have noted the following changes of clinical significance: no changes noted
[2021-12-10] MEDS ORDERED: LIDOCAINE 2% 2 ML VIAL/AMP(20MG/ML) INFIL ONE (14:08)
[2021-12-10] MEDS ORDERED: PROPOFOL IV EMULSION 10 MG/ML 20 ML VIAL IV ONE (14:08)
[2021-12-10] MEDS ORDERED: fentaNYL citrate 100 MCG/2 ML VIAL ONE (14:08)
[2021-12-10] MEDS ORDERED: MIDAZOLAM HCL 1 MG/ML 2ML VIAL ONE (14:08)
[2021-12-10] MEDS ORDERED: BUPIVACAINE 0.5 % 5 MG/1 ML MPF 30ML VIAL ONE (14:09)
[2021-12-10] MEDS ORDERED: ATROPINE SULFATE 0.1 MG/ML 10ML SYR IV PRN (14:28)
[2021-12-10] MEDS ORDERED: NALOXONE HCL 0.4 MG/1 ML VIAL/CARP IV PRN (14:28)
[2021-12-10] MEDS ORDERED: LABETALOL HCL IV 5 MG/ML 20ML IV PRN (14:28)
[2021-12-10] MEDS ORDERED: ONDANSETRON INJ 2 MG/ML 2 ML VIAL IV PRN (14:28)
[2021-12-10] MEDS ORDERED: FLUMAZENIL 0.1 MG/1 ML 10 ML VIAL IV PRN (14:28)
[2021-12-10] MEDS ORDERED: PROMETHAZINE HCL 12.5 MG in SODIUM CHLORIDE 0.9% 50 ML IV PRN (14:28)
[2021-12-10] MEDS ORDERED: fentaNYL citrate 100 MCG/2 ML VIAL IV PRN (14:28)
[2021-12-10] MEDS ORDERED: ePHEDrine sulfate 50 MG/ML AMP IV PRN (14:28)
--- NOTE | 2021-12-10 14:43 | Electrocardiogram Report ---
Test Reason : Blood Pressure : / mmHG Vent. Rate : 058 BPM Atrial Rate : 375 BPM P-R Int : 000 ms QRS Dur : 160 ms QT Int : 478 ms P-R-T Axes : 000 000 090 degrees QTc Int : 469 ms Atrial fibrillation with slow ventricular response with occasional ventricular-paced complexes Left bundle branch block Abnormal ECG When compared with ECG of 08-MAY-2019 06:39, Vent. rate has decreased BY 12 BPM Confirmed by Mark Anthony Andrade ([id number]) on 12/10/2021 2:43:09 PM Referred By: REFERRED SELF Confirmed By:Mark Anthony Andrade
[2021-12-10] MEDS ORDERED: ONDANSETRON INJ 2 MG/ML 2 ML VIAL ONE (15:05)
--- NOTE | 2021-12-10 15:32 | Operative Report ---
PG Post Operative Report Pre & Post Diagnosis Operation Date: 12/10/21 12:00 Pre-Op Diagnosis: Acute osteomyelitis of right second toe. Post-Op Diagnosis: Acute osteomyelitis of right second toe. I identified the patient and participated in the time-out.: Yes Procedure Operation Date: 12/10/21 12:00 Actual Procedures p Amputation Right Second Toe(Right) - Carlos Rodríguez DO Surgeon Carlos Rodríguez DO Coin Machine Supervisor None Estimated Blood Loss 10 Findings Consistent with Post-Op Diagnosis Specimens Right second toe Description of Procedure On December 10, 2021 Luís was brought down from the hospital room to the preoperative holding area. The operative extremity was then fine signed. He was taken back to the operating room and laid on the table in supine position. He was given basic sedation. The right foot was prepped and draped in sterile fashion. A timeout was done. The patient and the operative extremity was properly identified. The surgical site was anesthetized with half percent Marcaine. A racquet shaped incision was made around the second toe. Dissection was taken down through all the soft tissues to the bone. The proximal phalanx was then skeletonized to its base and the MTP joint was disarticulated. The toe was removed. The surrounding soft tissues were trimmed to ensure an adequate low tension closure. The tourniquet was deflated. Hemostasis was obtained. There was good bleeding throughout the surgical site. The wound was then irrigated. The incision was then closed with 4-0 nylon suture in a vertical mattress fashion. He was then placed in a soft dressing. He was then transferred to a hospital bed. He was taken to the postanesthesia care unit in stable condition. He tolerated the procedure well. I attest to the content of the Intraoperative Record and any orders documented therein. Any exceptions are noted below.
--- NOTE | 2021-12-10 15:42 | Anesthesiology Progress Note ---
Date of Service December 10, 2021 Anesthesia Post Procedure Vital Signs Vital Signs: Temp Pulse Pulse Pulse Resp BP BP 12/10/21 11:30 36.5 C 77 18 121/80 12/10/21 07:52 36.9 C 94 H 18 91/59 L 12/10/21 03:39 36.5 C 77 18 105/66 12/09/21 23:12 36.5 C 73 16 111/69 12/09/21 18:39 36.8 C 77 16 121/73 12/09/21 16:06 36.6 C 61 20 155/75 H Pulse Ox O2 Del Method 12/10/21 11:30 92 Room Air 12/10/21 07:52 94 Room Air 12/10/21 03:39 93 Room Air 12/09/21 23:12 93 Room Air 12/09/21 18:39 93 Room Air 12/09/21 16:06 95 Room Air Pain Intensity Right 2nd Digit Foot: Pain Intensity: 4 Transfer of Care Handoff Completed per policy Notes Mental Status: alert / awake / arousable Patient Amnestic to Procedure: Yes Nausea / Vomiting: adequately controlled Pain: adequately controlled Airway Patency, RR, SpO2: stable & adequate BP & HR: stable & adequate Hydration State: stable & adequate Anesthetic Complications: no major complications apparent
--- NOTE | 2021-12-10 18:41 | Hospitalist Progress Note ---
Date of Service December 10, 2021 Assessment & Plan (1) Osteomyelitis of toe: Plan: Presents with right second toe diabetic foot ulcer with associated cellulitis and osteomyelitis of the distal phalanx, subluxation of DIP joint. With 2 metallic foreign bodies the distal second MT. No fevers or chills, not septic on arrival, with some streaking erythema up the right foot and edema of the right leg. Right foot x-ray consistent with osteomyelitis Failed Bactrim x4 to 5 days as an outpatient ESR 56, CRP 6 on admission, no leukocytosis or fevers. Has a previous history of Pseudomonas and Enterococcus infection in the urine Wound cx now with Staph aureus, sensitivities pending Blood cultures NGTD Now s/p right 2nd toe amputation with Dr. Rodríguez on 12/10 -continue med-telemetry given history of atrial fibrillation and TAVR, underlying cardiac issues -Consult orthopedic surgery [id number]-[id number] care/wound care/restrictions as per Ortho -Continue broad-spectrum antibiotic coverage with IV Zosyn and vancomycin for now--> plan to convert to po abx x 2 week course on discharge after culture results return -follow cx results -Follow CBC, ESR, CRP, CMP in AM and once weekly while on abx after discharge -He is not requiring pain control for this as he has neuropathy (2) Diabetic foot ulcer: Plan: As above (3) History of aortic valve repair: Plan: History of TAVR in 04/2019 Doing well since that time with mildly reduced EF but is euvolemic at this time Appreciate cardiology consultation-watch for volume overload -dc IVFs post op as is tasha po now (4) Pacemaker: Plan: Placed for heart block in the immediate period following his TAVR Functioning well (5) Atrial fibrillation: Plan: Permanent atrial fibrillation held Eliquis for surgery but will restart tomorrow likely-will d/w Ortho Monitor on telemetry Continue home metoprolol, diltiazem (6) Diabetes: Plan: No recent hemoglobin [id number] Hold home Tradjenta and metformin Glucose here well controlled Give NovoLog sliding scale for now and add Lantus if needed Accu-Cheks, diabetic diet (7) Hypertension: Plan: Blood pressures are controlled Continue home diltiazem, metoprolol, Entresto (8) Primary malignant neoplasm of prostate with high risk of recurrence due to [place] score of 8 to 10 and PSA greater than 20: Plan: Recently diagnosed Has upcoming appointment with oncology to decide on further treatment versus a watch and wait approach Had a bone scan on 12/08 which was negative-report obtained and scanned into records here (9) CHF (congestive heart failure): Plan: With mildly reduced EF as per cardiology consultation Is euvolemic Is not on diuretics dc IVFs post-op Continue Entresto, metoprolol succinate Follow daily weights, strict I's and O's Plan DVT prophylaxis-Eliquis Disposition-continued stay on medical floor with telemetry overnight and if still doing well tomorrow, will dc to home on po abx Full code as discussed with patient and his at the bedside Admission and Anticipated Discharge Date Admission Date: December 09, 2021 Subjective Pt seen after he returned from OR today for toe amputation Denies any CP, SOB, nausea. Ate dinner and tolerated. Not c/o pain Tele with Afib, PVCs, rates 80s Review of Systems Review of Systems: All systems reviewed & are unremarkable except as noted in HPI & below Physical Exam Constitutional: WD/WN, vitals as above Eyes: + anicteric sclerae Neck: trachea midline, no thyromegaly Respiratory: normal respiratory effort, lungs clear to auscultation Cardiovascular: Rate/Rhythm: regular rate and + irregularly irregular Heart Sounds: no murmur Chest (Breasts): Chest: normal inspection of chest Gastrointestinal (Abdomen): normal bowel sounds, soft, nontender, no hepatosplenomegaly Inspection/Auscultation: + visible herniation (Easily reducible umbilical hernia) Musculoskeletal: Extremities: + extremities abnormal to inspection (Right fooot in dressing not removed), no cyanosis and no clubbing Skin: no rashes, warm and dry + erythema (Streaking erythema slightly above dressing on right foot) Neurologic: moves all extremities and awake; no focal motor deficits Psychiatric: A+Ox3, euthymic affect Lymphatic: no lymphedema Results & Data Results & Data ([facility]) Vital Signs (Past 12 Hours) Vital Signs Temp Pulse Pulse Resp BP Pulse Ox O2 Del Method 12/10/21 16:52 36.7 C 82 18 145/89 H 92 Room Air 12/10/21 15:45 83 11 L 142/88 H 97 Oxymask 12/10/21 15:55 36.2 C L 86 19 139/91 99 Room Air 12/10/21 15:35 86 24 152/88 H 98 Oxymask 12/10/21 15:26 36.4 C L 88 10 L 150/91 H 94 Oxymask 12/10/21 11:30 36.5 C 77 18 121/80 92 Room Air 12/10/21 07:52 36.9 C 94 H 18 91/59 L 94 Room Air O2 Flow Rate 12/10/21 16:52 12/10/21 15:45 2 12/10/21 15:55 12/10/21 15:35 4 12/10/21 15:26 4 12/10/21 11:30 12/10/21 07:52 Laboratory Results 12/10/21 12/10/21 12/10/21 Range/Units 16:51 15:43 11:41 Creatinine (0.6-1.4) mg/dl Est Cr Clr Drug Dosing ml/min Est GFR ( Amer) ml/min Est GFR (Non-Af Amer) ml/min POC Glucose 110 H 108 H 115 H (70-99) mg/dl Estimat Average Glucose Hemoglobin A1c 12/10/21 12/10/21 12/10/21 Range/Units 07:55 06:39 06:39 Creatinine 1.17 (0.6-1.4) mg/dl Est Cr Clr Drug Dosing 53.1 ml/min Est GFR ( Amer) 67.4 ml/min Est GFR (Non-Af Amer) 58.1 ml/min POC Glucose 157 H (70-99) mg/dl Estimat Average Glucose Pending Hemoglobin A1c Pending 12/09/21 Range/Units 20:28 Creatinine (0.6-1.4) mg/dl Est Cr Clr Drug Dosing ml/min Est GFR ( Amer) ml/min Est GFR (Non-Af Amer) ml/min POC Glucose 120 H (70-99) mg/dl Estimat Average Glucose Hemoglobin A1c PG Care Time/CCT Total # of Minutes Spent Total Time Spent with Patient: Total time spent is greater than 50% in coordination of care (as documented) at patient's floor/unit and/or counseling patient: Coding Level of Care Code 32218 Subseq Hosp Care Lvl 2 Diagnoses Osteomyelitis of toe M86.9 Diabetic foot ulcer E11.621; L97.509 History of aortic valve repair Z98.890; Z86.79 Pacemaker Z95.0 Atrial fibrillation I48.91 Atrial fibrillation type: unspecified Diabetes E11.9 Diabetes mellitus complication status: without complication Diabetes mellitus terminal operator insulin use: without shelter use Diabetes mellitus type: type 2 Hypertension I10 Hypertension type: essential hypertension Primary malignant neoplasm of prostate with high risk of recurrence due to [place] score of 8 to 10 and PSA greater than 20 C61 CHF (congestive heart failure) I50.9 (1) Diabetes Diabetes mellitus complication status: without complication Diabetes mellitus terminal operator insulin use: without terminal operator use Diabetes mellitus type: type 2 Qualified Code(s): E11.9 - Type 2 diabetes mellitus without complications (2) Atrial fibrillation Atrial fibrillation type: unspecified Qualified Code(s): I48.91 - Unspecified atrial fibrillation (3) Hypertension Hypertension type: essential hypertension Qualified Code(s): I10 - Essential (primary) hypertension
[2021-12-10] MEDS: METOPROLOL SUCC 50MG EXT REL TAB PO SCH (21:03)
[2021-12-10] MEDS: MELATONIN 3 MG TAB PO PRN ×2 (22:15→22:35)
[2021-12-11] MEDS: DUTASTERIDE: ORDER AWAITING ACTION SCH ×2 (00:02→08:03)
[2021-12-11] MEDS ORDERED: VANCOMYCIN LEVEL ONE (05:30)
[2021-12-11] MEDS: PIPERACILLIN/TAZOBACTAM 4.5 GM in DEXTROSE 5% 100 ML IV SCH (06:19)
[2021-12-11] MEDS: VANCOMYCIN HCL 750 MG in SODIUM CHLORIDE 0.9% 250 ML IV SCH (06:27)
[2021-12-11 06:33] LABS: Basophils # (auto) 0.04 K/uL (0-0.2); Basophils % (auto) 0.5 %; Eosinophils # (auto) 0.13 K/uL (0-0.50); Eosinophils % (auto) 1.6 %; Hematocrit (blood only) 44.7 % (40.1-51.0); Hemoglobin 15.3 g/dl (14.0-18.0); Immature Granulocytes # (auto) 0.03 K/uL (0.00-0.02); Immature Granulocytes % (auto) 0.4 %; Lymphocytes # (auto) 1.81 K/uL (1.2-3.4); Lymphocytes % (auto) 21.7 %; Mean Corpuscular Hemoglobin 32.1 pg (25.0-34.0); Mean Corpuscular Hgb Conc 34.2 g/dL (32.0-36.0); Mean Corpuscular Volume 93.7 fL (80.0-100.0); Mean Platelet Volume 8.8 fL (9.4-12.4); Monocytes # (auto) 0.78 K/uL (0.24-0.82); Monocytes % (auto) 9.4 %; Neutrophils # (auto) 5.54 K/uL (1.4-6.5); Neutrophils % (auto) 66.4 %; Platelet Count 245 K/uL (130-400); RDW Coefficient of Variation 12.7 % (11.5-14.5); RDW Standard Deviation 43.4 fL (36.4-46.3); Red Blood Count 4.77 M/uL (4.63-6.08); White Blood Count 8.33 K/ul (4.8-10.8)
[2021-12-11 07:08] LABS: Albumin Globulin Ratio 1.2 (0.9-2); Albumin Level 3.9 gm/dl (3.4-5.0); BUN Creatinine Ratio 18.4 (10-20); Bilirubin,Total 0.5 mg/dl (0.2-1.0); C Reactive Protein 2.17 mg/dl (0-0.5); Calcium 9.7 mg/dl (8.5-10.1); Creatinine Clr Calc Pharmacy 54.4 ml/min; Est GFR (African American) 69.5 ml/min; Globulin 3.2 gm/dl (2.5-4.0); Potassium 4.9 mmol/L (3.5-5.1); Total Protein 7.1 gm/dl (6.0-8.3)
[2021-12-11 07:10] LABS: Estimated Average Glucose 128 mg/dl; Hemoglobin A1C 6.1 % (4.5-5.6)
--- NOTE | 2021-12-11 07:18 | Pharmacy Report ---
Pharmacy PK ABX Note - Date of Service December 11, 2021 - Assessment and Plan Assessment 81 year old M receiving Vancomycin and Zosyn for treatment of possible osteomyelitis. * PMHx significant for T2DM. No recent admission but recently on Bactrim as outpatient. * Patient is s/p toe amputation on 12/10/21. * Afebrile and without leukocytosis. Renal fxn appears to be at baseline. Plan Vancomycin * Increase Maintenance dose: 1000 mg IV every 12 hours * Regimen is predicted to achieve target AUC/MALCOLM of 400-600 mg/L.hr * Random level to be ordered if vancomycin continued for more than 48 hours Zosyn * 4.5 g IV loading dose followed by 4.5 g IV every 8 hours Pharmacy will continue to follow and will adjust dose/frequency as necessary. Thank you. Pharmacy has transitioned to AUC monitoring for vancomycin. AUC/MALCOLM is the preferred PK/PD target and is associated with decreased risk of nephrotoxicity compared to traditional trough targets.
[2021-12-11] MEDS: PRAVASTATIN SOD 20 MG TAB PO SCH (08:04)
[2021-12-11] MEDS: MULTIVITAMIN TAB PO SCH (08:04)
[2021-12-11] MEDS: CeleBREX 200 MG CAP PO SCH (08:04)
[2021-12-11] MEDS: dilTIAZem HCL 30 MG TAB PO SCH (08:04)
[2021-12-11] MEDS: VALSARTAN/SACUBITRIL 26/24MG TAB PO SCH (08:05)
[2021-12-11] MEDS: TAMSULOSIN HCL 0.4 MG CAP PO SCH (08:05)
[2021-12-11] MEDS: INSULIN ASPART PER UNIT SC SCH ×2 (08:12→12:35)
--- NOTE | 2021-12-11 13:50 | Discharge Summary ---
Date of Service December 11, 2021 Admission HPI Per Admitting Provider This patient is an 81-year-old male with a history of severe aortic stenosis now s/p TAVR, prostate cancer, atrial fibrillation, HFrEF, DM2, HTN, who presents to the ER with worsening right second toe infection. He reports he tried cutting his own toenails about 2 weeks ago and then noticed that the right second toe developed an ulcer at the tip. His toe since that time has been progressively becoming more swollen and red with pus draining out of the ulceration. He was started on Bactrim by his PCP on 12/05 and has been taking this twice daily with continued worsening of the infection. He now as of this morning noticed red streaking up the side of his foot and worsening swelling and came to the ER. He denies any fever/chills, no headaches or nausea, no abdominal pains, no diarrhea, no rashes, no joint pains anywhere else. He does have bilateral knee replacements, left shoulder replacement, as well as a pacemaker and a TAVR in place. He denies any fatigue, chest pains, shortness of breath, cough. Otherwise has been feeling his normal self. In the ER, he was found to have normal vital signs specifically he was afebrile. His labs were fairly unremarkable except for sodium of 135, ESR elevated at 56, and CRP elevated at 6. He did not have a leukocytosis and his renal function is normal. An x-ray of the right foot showed osteomyelitis of the second toe distal phalanx with subluxation of the DIP joint as well as 2 metallic foreign bodies at the distal second MT. He was given IV vancomycin and IV Zosyn in the ER. He will be admitted for diabetic foot ulcer with associated cellulitis and toe osteomyelitis. Principal Diagnosis Right toe osteomyelitis, cellulitis, diabetic foot ulcer s/p right 2nd toe amputation Discharge Exam Constitutional WD/WN, vitals as above Eyes + anicteric sclerae Neck trachea midline, no thyromegaly Respiratory normal respiratory effort, lungs clear to auscultation Cardiovascular Rate/Rhythm: regular rate and + irregularly irregular Heart Sounds: no murmur Extremities: no edema Chest (Breasts) Chest: normal inspection of chest Gastrointestinal (Abdomen) normal bowel sounds, soft, nontender, no hepatosplenomegaly Inspection/Auscultation: + visible herniation (Easily reducible umbilical hernia) Musculoskeletal Extremities: + extremities abnormal to inspection (Right fooot in dressing not removed), no cyanosis and no clubbing Skin no rashes, warm and dry no erythema Neurologic moves all extremities and awake; no focal motor deficits Psychiatric A+Ox3, euthymic affect Lymphatic no lymphedema Discharge Data Allergies Allergy/AdvReac Type Severity Reaction Status Date / Time No Known Allergies Allergy Verified 11/08/21 08:07 Consultations 12/09/21 09:10 ED Decision to Admit Stat 12/09/21 09:25 Consult Orthopedic Surgery Routine 12/09/21 10:46 Consult Cardiology Routine Procedures Performed Operation Date: 12/10/21 12:00 Actual Procedures p Amputation Right Second Toe(Right) - Carlos Rodríguez, Hospital Course (1) Osteomyelitis of toe: Presents with right second toe diabetic foot ulcer with associated cellulitis and osteomyelitis of the distal phalanx, subluxation of DIP joint. With 2 metallic foreign bodies the distal second MT. No fevers or chills, not septic on arrival, with some streaking erythema up the right foot and edema of the right leg. Right foot x-ray consistent with osteomyelitis Failed Bactrim x4 to 5 days as an outpatient ESR 56, CRP 6 on admission, no leukocytosis or fevers. Has a previous history of Pseudomonas and Enterococcus infection in the urine Wound cx now with Staph aureus, resistant to clinda and erythromycin, sensitive to Bactrim, doxy, Vanco, Dapto, oxacillin Blood cultures remained NGTD > 48 hrs ESR and CRP trending downward Now s/p right 2nd toe amputation with Dr. Rodríguez on 12/10, doing well post-op -Consult orthopedic surgery [id number] care/wound care/restrictions as per Ortho-daily dry dressing changes, wear post-op hard show, f/u in 2 weeks with Ortho -received broad-spectrum antibiotic coverage with IV Zosyn and vancomycin --> plan to convert to po doxycycline x 2 week course on discharge for residual cellulitis but OM resolved with surgical resection -Follow CBC, ESR, CRP, CMP once weekly while on abx after discharge-can be ordered by PCP -He is not requiring pain control for this as he has neuropathy (2) Diabetic foot ulcer: As above (3) History of aortic valve repair: History of TAVR in 04/2019 Doing well since that time with mildly reduced EF but is euvolemic at this time Appreciate cardiology consultation-watch for volume overload doing well, euvolemic at discharge (4) Pacemaker: Placed for heart block in the immediate period following his TAVR Functioning well (5) Atrial fibrillation: Permanent atrial fibrillation held Eliquis for surgery but will restart this evening rates controlled Continue home metoprolol, diltiazem (6) Diabetes: hemoglobin A1c-6.1%, well controlled restart home Tradjenta and metformin Glucose here well controlled (7) Hypertension: Blood pressures are controlled Continue home diltiazem, metoprolol, Entresto (8) Primary malignant neoplasm of prostate with high risk of recurrence due to [place] score of 8 to 10 and PSA greater than 20: Recently diagnosed Has upcoming appointment with oncology to decide on further treatment versus a watch and wait approach Had a bone scan on 12/08 which was negative-report obtained and scanned into records here (9) CHF (congestive heart failure): With mildly reduced EF as per cardiology consultation Is euvolemic Is not on diuretics Continue Entresto, metoprolol succinate Plan DVT prophylaxis-Eliquis Disposition-dc to home today Full code as discussed with patient and his at the bedside Total Time Total Time Spent Total Time Spent (In Minutes): 35 min Discharge Plan Discharge Items Patient Disposition: Home - Self-Care Reason For Visit: TOE OM Discharge Diagnosis: Toe osteomyelitis, foot cellulitis, diabetic foot ulcer Condition on Discharge: Good Activity: As commented below Bathing: Keep incision dry Exercise/Sports: As tolerated Exercise Comment: right foot in post-op shoe Non-emergency contact: Primary Care Provider and Surgeon Call non-emergency contact if: you have any medication questions, your symptoms worsen, your pain is not controlled, you have a fever, your temperature is above 101, your wound has increased redness, your wound has increased drainage and your wound pain has increased Follow-up/Referrals: Leoncio Valladares MD [Primary Care Provider] - (Follow up within 1-2 weeks.) Carlos Rodríguez DO [Physician] - (Follow up in 2 weeks as directed. Please call to schedule the appointment.) Diet: Carb Consistent or DM2 and Heart Healthy Addtl Attending Provider Instructions: Please continue on the antibiotic called doxycycline twice a day for 12 more days for your infection. Your toe was amputated to get rid of the infected bone to prevent worsening infection. Please perform daily dressing changes as instructed. Follow up with Dr. Rodríguez in 2 weeks. Pending Studies at Discharge: Yes Studies:: Final blood culture results-no growth to date Stand-Alone Forms: [facility], Smoking Cessation Medications and DC Order Prescriptions: New doxycycline hyclate 100 mg tablet 100 mg PO BID 12 Days Qty: 24 0RF Continued celecoxib [Celebrex] 200 mg capsule 200 mg PO BID clobetasol 0.05 % cream 1 applic topical BID diltiazem HCl 30 mg tablet 30 mg PO BID Tradjenta 5 mg tablet 5 mg PO DAILY pravastatin 20 mg tablet 20 mg PO DAILY Entresto 24-26 mg tablet 1 tab PO BID tramadol 50 mg tablet 50 mg PO Q6H PRN (Reason: Pain) dutasteride 0.5 mg capsule 0.5 mg PO DAILY Qty: 90 1RF multivitamin Tablet 1 tab PO DAILY metformin 500 mg tablet 500 mg PO BID Eliquis 5 mg tablet 5 mg PO BID furosemide [Lasix] 20 mg Tablet 20 mg PO DIRECTED PRN (Reason: swelling) metoprolol succinate 100 mg tablet extended release 24 hr 50 mg PO HS tamsulosin [Flomax] 0.4 mg Capsule 0.4 mg PO DAILY Discontinued sulfamethoxazole-trimethoprim [Bactrim] 400-80 mg Tablet 1 tab PO BID Discharge Orders: Discharge Order (Routine); Ordered 12/11/21 Ordered By: Erin Lemons/Other Patient Handouts: Nutrition for Wound Healing, Special Foot Care for Diabetes Admission Data Admit Date/Time: 12/09/21 09:25 Attending Provider: Erin Huerta Admit Provider: Erin Huerta Primary Care Provider: Leoncio Valladares Other Providers: Erin Huerta ; Carlos Rodríguez ; Mark Anthony Andrade Other Interventions: Discharge Summary Assessment (RN) Last Done: 12/11/21 12:42 Coding Level of Care Code D/C DAY MANAGEMENT >30 MINS Diagnoses Osteomyelitis of toe M86.9 Diabetic foot ulcer E11.621; L97.509 History of aortic valve repair Z98.890; Z86.79 Pacemaker Z95.0 Atrial fibrillation I48.91 Atrial fibrillation type: unspecified Diabetes E11.9 Diabetes mellitus type: type 2 Diabetes mellitus terminal gauger insulin use: without care home use Diabetes mellitus complication status: without complication Hypertension I10 Hypertension type: essential hypertension Primary malignant neoplasm of prostate with high risk of recurrence due to Deangelo score of 8 to 10 and PSA greater than 20 C61 CHF (congestive heart failure) I50.9
[2021-12-11] MEDS ORDERED: VANCOMYCIN HCL 1,000 MG in SODIUM CHLORIDE 0.9% 250 ML IV SCH (18:00)
== END 2021-12-11 14:34 | disposition home or self-care (01) | DRG 617 ==
LOC: ED 07:06 → 2N 09:25
DX: Z79.899 Other long term (current) drug therapy; Z95.2 Presence of prosthetic heart valve; E11.621 Type 2 diabetes mellitus with foot ulcer; I11.0 Hypertensive heart disease with heart failure; I48.21 Permanent atrial fibrillation; E11.40 Type 2 diabetes mellitus with diabetic neuropathy, unspecified; S93.134A Subluxation of interphalangeal joint of right lesser toe(s), initial encounter; Z87.440 Personal history of urinary (tract) infections; Z79.01 Long term (current) use of anticoagulants; E11.69 Type 2 diabetes mellitus with other specified complication; X58.XXXA Exposure to other specified factors, initial encounter; C61 Malignant neoplasm of prostate; L03.115 Cellulitis of right lower limb; L97.519 Non-pressure chronic ulcer of other part of right foot with unspecified severity; M86.171 Other acute osteomyelitis, right ankle and foot; Z79.84 Long term (current) use of oral hypoglycemic drugs; Z86.19 Personal history of other infectious and parasitic diseases; Z96.653 Presence of artificial knee joint, bilateral; I50.20 Unspecified systolic (congestive) heart failure; Z95.0 Presence of cardiac pacemaker; Z96.612 Presence of left artificial shoulder joint

== ENCOUNTER 2023-09-12 18:01 | Inpatient (IN) ==
[2023-09-12 19:12] LABS: Basophils # (auto) 0.06 K/uL (0.00-0.20); Basophils % (auto) 0.8 %; Eosinophils # (auto) 0.12 K/uL (0.00-0.50); Eosinophils % (auto) 1.6 %; Hematocrit (blood only) 40.2 % (42.0-52.0); Hemoglobin 13.7 g/dl (14.0-18.0); Immature Granulocytes # (auto) 0.04 K/uL (0.01-0.20); Immature Granulocytes % (auto) 0.5 %; Lymphocytes # (auto) 2.17 K/uL (1.20-3.40); Lymphocytes % (auto) 28.4 %; Mean Corpuscular Hemoglobin 31.4 pg (25.0-34.0); Mean Corpuscular Hgb Conc 34.1 g/dL (32.0-36.0); Mean Corpuscular Volume 92.2 fL (80.0-100.0); Mean Platelet Volume 10.8 fL (9.4-12.4); Monocytes # (auto) 0.73 K/uL (0.11-0.59); Monocytes % (auto) 9.5 %; Neutrophils # (auto) 4.53 K/uL (1.40-6.50); Neutrophils % (auto) 59.2 %; Platelet Count 221 K/uL (130-400); RDW Coefficient of Variation 17.4 % (11.5-14.5); RDW Standard Deviation 59.1 fL (36.4-46.3); Red Blood Count 4.36 M/uL (4.70-6.10); White Blood Count 7.65 K/ul (4.8-10.8)
[2023-09-12 19:29] LABS: Alanine Aminotransferase 253 U/L (7-52); Albumin Globulin Ratio 1.1 (0.9-2); Albumin Level 4.3 gm/dl (3.4-5.0); Alkaline Phosphatase 349 U/L (34-104); Anion Gap 8 (3-11); Aspartate Aminotransferase 134 U/L (13-39); BUN Creatinine Ratio 34.8 (10-20); Blood Urea Nitrogen 47 mg/dl (6-23); Calcium 10.5 mg/dl (8.6-10.3); Carbon Dioxide 20 mmol/L (21-32); Chloride 101 mmol/L (98-107); Creatinine Clr Calc Pharmacy 44.4 ml/min; Est GFR (African American) 55.9 ml/min; Est GFR (Non-African American) 48.2 ml/min; Globulin 3.8 gm/dl (2.5-4.0); Glucose 267 mg/dl (70-99(Fasting)); Lipase 64 U/L (11-82); Potassium 5.4 mmol/L (3.5-5.1); Sodium 129 mmol/L (136-145); Total Protein 8.1 gm/dl (6.0-8.3)
[2023-09-12] MEDS: OPTIRAY 320 100ml IV ONE (19:50)
--- NOTE | 2023-09-12 20:38 | CT Scan Report ---
Exam(s): CT ABDOMEN + PELVIS With Contrast IV Amt: 93 ml optiray 320 EXAM: CT Abdomen and Pelvis With Intravenous Contrast CLINICAL HISTORY: Reason for exam: jaundice, transaminitis. TECHNIQUE: Axial computed tomography images of the abdomen and pelvis with intravenous contrast. CTDI is 27.69 mGy and DLP is 1303.01 mGy-cm. Automated exposure control was utilized for the study. A dose lowering technique was utilized adhering to the principles of ALARA. CONTRAST: Patient received 93 ml optiray 320 of IV contrast COMPARISON: No relevant prior studies available. FINDINGS: Lung bases: Unremarkable. No mass. No consolidation. Heart: Partially imaged aortic valve replacement. Lead-less pacemaker suggested in the right ventricle. No pericardial effusion. ABDOMEN: Liver: Unremarkable. No mass. Gallbladder and bile ducts: Gallbladder sludge. No calcified stones. No evidence of cholecystitis or biliary dilatation. Pancreas: Pancreatic atrophy with slight duct dilatation may represent chronic pancreatitis changes. There is no evidence of acute pancreatitis. Spleen: Unremarkable. No splenomegaly. Adrenals: Unremarkable. No mass. Kidneys and ureters: Unremarkable. No solid mass. No hydronephrosis. Stomach and bowel: Unremarkable. No obstruction. No mucosal thickening. PELVIS: Appendix: Normal appendix. Bladder: Unremarkable. No mass. Reproductive: Unremarkable as visualized. ABDOMEN and PELVIS: Intraperitoneal space: Unremarkable. No free fluid or free air. Bones/joints: Osteopenia. No acute fracture or dislocation. Soft tissues: Small fat-containing umbilical hernia. Vasculature: Atherosclerosis. No aortic aneurysm. Lymph nodes: Unremarkable. No enlarged lymph nodes. IMPRESSION: 1. No acute findings in the abdomen or pelvis. 2. Gallbladder sludge but no evidence of cholecystitis or calcified stone. No common bile duct dilatation. No visible choledocholithiasis. 3. Changes in the pancreas suggesting background of chronic pancreatitis. No CT evidence of acute pancreatitis. Electronically signed by: Thanh Mohan M.D. 09/12/23 20:37 PM
[2023-09-12 21:22] LABS: Appearance Urine Clear (Clear); Bacteria Urine Automated None Seen (None Seen); Bilirubin Urine 2+ (Negative); Blood Urine Negative (Negative); Cast Urine Automated 0-2 /lpf (0-2); Color Urine Dark Yellow; Epithelial Cell Urine Auto 0-2 /hpf (0-2); Glucose Urine UA 2+ (Negative); Ketones Urine Negative (Negative); Leukocyte Esterase Urine Trace (Negative); Nitrite Urine Negative (Negative); Protein Urine 1+ (Negative); RBC Urine Automated 0-2 /hpf (0-2); Specific Gravity Urine 1.033 (1.000-1.030); Urobilinogen Urine Negative (Negative); WBC Urine Automated 0-5 /hpf (0-5)
--- NOTE | 2023-09-12 22:15 | Emergency Department Note ---
Impression & Plan Painless jaundice ED Provider Note NAME: ALEJANDRA MTZ AGE: 83 SEX: M : 1940 ARRIVES VIA: Walk-In INFORMANT: [Patient][, ] ED PROVIDER(S): [Wayne Goldman MD] CHIEF COMPLAINT: Jaundice HPI: This is an 83-year-old male presenting for jaundice. Patient states that over the past few days he is become significantly jaundiced. He has had light- colored stool, dark urine. Reportedly has had some weight loss. He was sent in for further workup including his CAT scan imaging. He notes no pain in his abdomen, hyper quadrant, chest, back. He notes no fevers or chills. He does state he has history of prostate cancer which is well-controlled with medication. Otherwise no current nausea, vomiting. ROS: See above HPI for pertinent positives & negatives. A total of [10] systems reviewed and were otherwise negative. PHYSICAL EXAMINATION: General: resting comfortably in no acute distress Head: Normocephalic Eyes: Normal inspection, extraocular muscles intact, scleral icterus Ear, nose, throat: Normal external exam Neck: Normal range of motion Respiratory: lungs clear to auscultation bilaterally Cardiovascular: Regular rate/rhythm, no murmur GI: soft, nontender, no guarding or rebound Extremities: nontender, moves all extremities Neuro: The patient awake and alert, appropriately conversive, no focal deficits, symmetric faces Skin: Jaundiced skin MEDICAL DECISION MAKING: This is an 83-year-old male presenting for painless jaundice. Consider cholecystitis, choledocholithiasis, pancreatic cancer. -No leukocytosis noted. Hemoglobin 13.7. -Blood work revealed hyponatremia 129, potassium 5.4. CO2 20. -Bilirubin is over 11, unable to get directly room due to hemolysis. -AST is 134, ALT 253, alk phos 349. -CT of the ab/pelvis reveals gallbladder sludge without evidence of acute cholecystitis/calcified stone. No CBD dilation, no visible choledocholithiasis. Otherwise suggestions of chronic pancreatitis. -Without rectal quadrant tenderness, low concern for acute cholecystitis clinically. -Discussed care with Dr. Diamond Interiano, general surgery, about patient's labs, CT imaging. In light of no guarding, tenderness, she recommends consultation with GI. -Discussed care with Dr. Interiano, gastroenterology, who recommends inpatient medical mission, GI consultation tomorrow. He reviewed patient's labs and is concern for cholestatic hepatitis. Will look for new change in medications and treat with IV fluid resuscitation in the meantime. Also look for viral hepatitis. -Discussed care with Dr. Piedra, who request transfer for ERCP. -Discussed care with Fiorella, family medicine service, who states hospital is currently capped. Would recommend either discussion for admission here and possible call tomorrow morning for transfer. GI service/trauma service are also placed turkey boner and GI recommends MRCP first in light of patient's symptoms and CT imaging. He stated diagnostic ERCP is not indicated at this time. -Patient admitted to hospital service here. Differential diagnosis: See above Past Med/Surg History Problem List Painless jaundice (Acute) Encounter for pre-operative examination Severe aortic stenosis S/p TAVR 04/2019 Post-operative state (Acute 07/06/13) Post-operative state (Acute 08/17/13) Enlarged prostate Postoperative urinary retention Prostate nodule Complication, blocked Patrick catheter (Acute) Diarrhea (Acute) Elevated prostate specific antigen (PSA) Primary malignant neoplasm of prostate with high risk of recurrence due to Starr score of 8 to 10 and PSA greater than 20 Acute osteomyelitis of toe of right foot (Acute) Diabetic ulcer of toe of right foot (Acute) 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 foot ulcer CHF (congestive heart failure) History of aortic valve repair [place] [facility] [place]th[place] 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 Medtronic [id number] Micra VR TCP Serial # [id number]- CHECKED REMOTELY 06/15/22 Hyponatremia (Acute) Atrial fibrillation follows w/ Dr Andrade- last visit 06/2022 on Eliquis Diabetes Hypertension Osteoarthritis of left shoulder region Hx of shoulder replacement Medical History (Updated 09/12/23 @ 23:11 by Wayne Goldman MD) CAD (coronary artery disease) 04/2019 cardiac cath showed 30% LAD lesion, large first diagonal branch with 60-70% narrowing, 40% mid segment narrowing of nondominant circumflex, 30% mid and distal RCA lesions Prostate cancer currently being treated, Dr Wakefield [facility] History of COVID-19 05/2022- fatigue; no hospitalized; resolved Surgical History History of transcatheter aortic valve replacement (TAVR) 04[place]2019[place] [facility] [place] Hx of cardiac catheterization 04/2019 [facility]- no stents- aortic valve replacement done at [facility] [place] History of permanent cardiac pacemaker placement Radha [id number] Snehal VR [facility] Serial # [id number] History of knee replacement Family History Brother Cancer 3 brothers/ prostate Other Family history non-contributory Social History Smoking Status: Never smoker Second Hand Exposure: No; Do You Dip or Chew Tobacco: No; Hx Alcohol Use: No Hx Substance Use: No Preferred Language: Emirati Communication Ability: Effective Visual Impairment: No Limitations Hearing Ability: Normal 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 Beliefs That Will Affect Care: None marital status: Current Living Situation: Spouse current occupational status: retired 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 [employer] Feels Safe at Home: Yes Diet: regular Diet Comment: Diabetic diet caffeine: Yes during the past year weight has: remained stable Assistive Devices: Cane, Denture - Upper, Denture - Lower and Glasses Allergies Allergies Allergy/AdvReac Type Severity Reaction Status Date / Time ciprofloxacin Allergy Intermediate Dysequilibr Verified 08/09/22 06:21 ium Home Meds Home Medications Medication Instructions Recorded Confirmed apixaban 5 mg tablet (Eliquis) 5 mg PO BID 01/19/19 08/09/22 metformin 500 mg tablet 500 mg PO BID 01/19/19 08/09/22 multivitamin 1 tab PO QAM 01/19/19 08/09/22 tamsulosin 0.4 mg capsule (Flomax) 0.4 mg PO DAILY 04/06/19 08/09/22 furosemide 20 mg tablet (Lasix) 20 mg PO DIRECTED PRN swelling 05/08/19 08/09/22 diltiazem HCl 30 mg tablet 30 mg PO BID 11/08/21 08/09/22 linagliptin 5 mg tablet (Tradjenta) 5 mg PO DAILY 11/08/21 08/09/22 metoprolol succinate 100 mg 50 mg PO BID 11/08/21 08/09/22 tablet,extended release 24 hr pravastatin 20 mg tablet 20 mg PO DAILY 11/08/21 08/09/22 sacubitril 24 mg-valsartan 26 mg 1 tab PO BID 11/08/21 08/09/22 tablet (Entresto) tramadol 50 mg tablet 100 mg PO Q6H PRN Pain 11/08/21 08/09/22 cholecalciferol (vitamin D3) 25 25 mcg PO QAM 08/02/22 08/09/22 mcg (1,000 unit) tablet Previous Rx's Medication Instructions Recorded dutasteride 0.5 mg capsule 0.5 mg PO DAILY #90 caps 10/28/19 cadexomer iodine 0.9 % topical gel 40 g topical Q3D #40 grams 08/02/22 (Iodosorb) Results & Data (ED) Vital Signs Vital Signs - 24 hr 09/12/23 18:08 09/12/23 20:04 09/12/23 20:12 Temperature 36.7 C Temperature Source Temporal Artery Scan Pulse Rate 103 H 96 H 87 Pulse Rate from SpO2 Sensor Respiratory Rate 16 16 Respiratory Effort / Characteristics Non-Labored Spontaneous Respiratory Depth Normal Blood Pressure 134/77 105/75 Blood Pressure Mean 96 85 Pulse Oximetry 91 95 Oxygen Delivery Method Room Air Room Air Sepsis Recent Fever Within 48 Hours No Sepsis New/Unexplained Change in Mental Status No Sepsis Action Taken by Nursing No Action Required 09/12/23 20:51 09/12/23 21:00 09/12/23 22:00 Temperature Temperature Source Pulse Rate 88 97 H 98 H Pulse Rate from SpO2 Sensor 103 H 95 H Respiratory Rate 21 23 23 Respiratory Effort / Characteristics Respiratory Depth Blood Pressure 138/95 128/80 160/94 H Blood Pressure Mean 109 96 116 Pulse Oximetry 98 94 95 Oxygen Delivery Method Room Air Room Air Room Air Sepsis Recent Fever Within 48 Hours Sepsis New/Unexplained Change in Mental Status Sepsis Action Taken by Nursing 09/12/23 22:30 Temperature Temperature Source Pulse Rate 96 H Pulse Rate from SpO2 Sensor Respiratory Rate 21 Respiratory Effort / Characteristics Respiratory Depth Blood Pressure 155/95 H Blood Pressure Mean 115 Pulse Oximetry 96 Oxygen Delivery Method Room Air Sepsis Recent Fever Within 48 Hours Sepsis New/Unexplained Change in Mental Status Sepsis Action Taken by Nursing Laboratory Data 09/12/23 18:55 09/12/23 18:55 Lab Results 09/12/23 09/12/23 Range/Units 18:55 Unknown WBC 7.65 (4.8-10.8) K/ul RBC 4.36 L (4.70-6.10) M/uL Hgb 13.7 L (14.0-18.0) g/dl Hct 40.2 L (42.0-52.0) % MCV 92.2 (80.0-100.0) fL MCH 31.4 (25.0-34.0) pg MCHC 34.1 (32.0-36.0) g/dL RDW Std Deviation 59.1 H (36.4-46.3) fL RDW Coeff of Alec 17.4 H (11.5-14.5) % Plt Count 221 (130-400) K/uL MPV 10.8 (9.4-12.4) fL Immature Gran % (Auto) 0.5 % Neut % (Auto) 59.2 % Lymph % (Auto) 28.4 % Warren % (Auto) 9.5 % Eos % (Auto) 1.6 % Baso % (Auto) 0.8 % Neut # (Auto) 4.53 (1.40-6.50) K/uL Lymph # (Auto) 2.17 (1.20-3.40) K/uL Warren # (Auto) 0.73 H (0.11-0.59) K/uL Eos # (Auto) 0.12 (0.00-0.50) K/uL Baso # (Auto) 0.06 (0.00-0.20) K/uL Immature Gran # (Auto) 0.04 (0.01-0.20) K/uL Sodium 129 L (136-145) mmol/L Potassium 5.4 H (3.5-5.1) mmol/L Chloride 101 (98-107) mmol/L Carbon Dioxide 20 L (21-32) mmol/L Anion Gap 8 (3-11) BUN 47 H (6-23) mg/dl Creatinine 1.35 (0.6-1.4) mg/dl Est Cr Clr Drug Dosing 44.4 ml/min Est GFR ( Amer) 55.9 ml/min Est GFR (Non-Af Amer) 48.2 ml/min BUN/Creatinine Ratio 34.8 H (10-20) Glucose 267 H (70-99(Fasting)) mg/dl Calcium 10.5 H (8.6-10.3) mg/dl Total Bilirubin 11.0 H (0.2-1.0) mg/dl Direct Bilirubin TNP AST 134 H (13-39) U/L ALT 253 H (7-52) U/L Alkaline Phosphatase 349 H (34-104) U/L Ammonia 34.0 (18-72) umol/L Total Protein 8.1 (6.0-8.3) gm/dl Albumin 4.3 (3.4-5.0) gm/dl Globulin 3.8 (2.5-4.0) gm/dl Albumin/Globulin Ratio 1.1 (0.9-2) Lipase 64 (11-82) U/L Urine Color Dark Yellow Urine Appearance Clear (Clear) Urine pH 5.0 (4.5-7.5) Ur Specific [place] 1.033 H (1.000-1.030) Urine Protein 1+ H (Negative) Urine Glucose (UA) 2+ H (Negative) Urine Ketones Negative (Negative) Urine Blood Negative (Negative) Urine Nitrite Negative (Negative) Urine Bilirubin 2+ H (Negative) Urine Urobilinogen Negative (Negative) Ur Leukocyte Esterase Trace H (Negative) Urine WBC (Auto) 0-5 (0-5) /hpf Urine RBC (Auto) 0-2 (0-2) /hpf U Hyaline Cast (Auto) 0-2 (0-2) /lpf U Epithel Cells (Auto) 0-2 (0-2) /hpf Urine Bacteria (Auto) None Seen (None Seen) Administered Medications Discontinued Medications Ioversol (Optiray 320 100ml) 93 ml IV ONCE ONE Stop: 09/12/23 19:50 Last Admin: 09/12/23 19:50 Dose: 93 ml Documented By: FRANCOIS Imaging Data Radiologist's Impression: Abdomen/Pelvis CT 09/12/23 19:38 Exam(s): CT ABDOMEN + PELVIS With Contrast IV Amt: 93 ml optiray 320 EXAM: CT Abdomen and Pelvis With Intravenous Contrast CLINICAL HISTORY: Reason for exam: jaundice, transaminitis. TECHNIQUE: Axial computed tomography images of the abdomen and pelvis with intravenous contrast. CTDI is 27.69 mGy and DLP is 1303.01 mGy-cm. Automated exposure control was utilized for the study. A dose lowering technique was utilized adhering to the principles of ALARA. CONTRAST: Patient received 93 ml optiray 320 of IV contrast COMPARISON: No relevant prior studies available. FINDINGS: Lung bases: Unremarkable. No mass. No consolidation. Heart: Partially imaged aortic valve replacement. Lead-less pacemaker suggested in the right ventricle. No pericardial effusion. ABDOMEN: Liver: Unremarkable. No mass. Gallbladder and bile ducts: Gallbladder sludge. No calcified stones. No evidence of cholecystitis or biliary dilatation. Pancreas: Pancreatic atrophy with slight duct dilatation may represent chronic pancreatitis changes. There is no evidence of acute pancreatitis. Spleen: Unremarkable. No splenomegaly. Adrenals: Unremarkable. No mass. Kidneys and ureters: Unremarkable. No solid mass. No hydronephrosis. Stomach and bowel: Unremarkable. No obstruction. No mucosal thickening. PELVIS: Appendix: Normal appendix. Bladder: Unremarkable. No mass. Reproductive: Unremarkable as visualized. ABDOMEN and PELVIS: Intraperitoneal space: Unremarkable. No free fluid or free air. Bones/joints: Osteopenia. No acute fracture or dislocation. Soft tissues: Small fat-containing umbilical hernia. Vasculature: Atherosclerosis. No aortic aneurysm. Lymph nodes: Unremarkable. No enlarged lymph nodes. IMPRESSION: 1. No acute findings in the abdomen or pelvis. 2. Gallbladder sludge but no evidence of cholecystitis or calcified stone. No common bile duct dilatation. No visible choledocholithiasis. 3. Changes in the pancreas suggesting background of chronic pancreatitis. No CT evidence of acute pancreatitis. Electronically signed by: Thanh Mohan M.D. 09/12/23 20:37 PM Discharge Plan Visit Data Chief Complaint: Referred by Doctor Stated Complaint: CAT SCAN, BLOODWORK ED Provider: Wayne Goldman Discharge Problem: Painless jaundice Forms Stand Alone Forms: My [facility] Prescriptions Prescriptions: No Action cholecalciferol (vitamin D3) 25 mcg (1,000 unit) tablet 25 mcg PO QAM Iodosorb 0.9 % gel 40 g topical Q3D Qty: 40 0RF Rx Instructions: apply to ulcer with dressing changes diltiazem HCl 30 mg tablet 30 mg PO BID Tradjenta 5 mg tablet 5 mg PO DAILY pravastatin 20 mg tablet 20 mg PO DAILY Rx Instructions: HS Entresto 24-26 mg tablet 1 tab PO BID tramadol 50 mg tablet 100 mg PO Q6H PRN (Reason: Pain) dutasteride 0.5 mg capsule 0.5 mg PO DAILY Qty: 90 1RF multivitamin Tablet 1 tab PO QAM metformin 500 mg tablet 500 mg PO BID Eliquis 5 mg tablet 5 mg PO BID furosemide [Lasix] 20 mg Tablet 20 mg PO DIRECTED PRN (Reason: swelling) metoprolol succinate 100 mg tablet extended release 24 hr 50 mg PO BID tamsulosin [Flomax] 0.4 mg Capsule 0.4 mg PO DAILY Referrals Referrals: Matty Colon MD [Primary Care Provider] -
[2023-09-12] MEDS: SODIUM CHLORIDE 0.9% 1,000 ML IV ONE (23:12)
[2023-09-12] MEDS ORDERED: Heparin IV Adult Wt-Based Low-Dose *NO* INITIAL Bolus Protocol IV STA (23:29)
--- NOTE | 2023-09-12 23:37 | History & Physical Report ---
Date of Service September 12, 2023 Assessment & Plan (1) Painless jaundice: (2) Abnormal LFTs: (3) Severe aortic stenosis: (4) Chronic pancreatitis: (5) Pacemaker: (6) Atrial fibrillation: (7) Diabetes: (8) Hypertension: (9) Hyperbilirubinemia: Plan Painless jaundice/abnormal transaminases/hyperbilirubinemia/chronic pancreatitis- Symptoms of jaundice have developed over couple days Patient denies abdominal pain, nausea or vomiting CT scan of abdomen pelvis shows no acute findings in abdomen or pelvis. Gallbladder sludge but no evidence of cholecystitis or calcified stones. No CBD dilatation. No visible choledocholithiasis. Changes suggestive of chronic pancreatitis, without acute pancreatitis. AST 134, ALT 253, total bilirubin 11.0, alkaline phosphatase 349, lipase 64 Attempt to transfer to [facility] unsuccessful due to the medical service therapy and Would like to order MRCP, however, patient has a pacer which will need to be evaluated by cardiology to see if it is MRI Compatible Will admit to medical service for now, and repeat laboratories in a.m. N.p.o. for possible procedure in the a.m. Severe aortic stenosis status post TAVR/cardiac pacemaker/CHF/atrial fibrillation- Admit to monitored bed Hold Eliquis, and placed on therapeutic heparin low-dose without bolus Hold metoprolol succinate, Entresto and diltiazem Lopressor 2.5 mg IV every 4 hours Consult cardiology to assess for pacemaker compatibility for MRI Diabetes mellitus- Hold linagliptin and metformin Placed on Accu-Cheks with NovoLog SSI History of Present Illness Chief Complaint: The patient presents to the emergency department due to jaundice developing over the past few days, with light-colored stool and dark-colored urine, with an unspecified weight loss. Primary Care Provider: Matty Colon MD The patient is a 83-year-old male with a past medical history including severe aortic stenosis, status post TAVR 04/20, status post pacemaker, status post pacemaker, prostate cancer, history of right foot osteomyelitis/diabetic foot ulcer, CHF, atrial fibrillation, diabetes mellitus, and hypertension. He presents to the emergency department after the development over the past few days of a painless jaundice, with light-colored stool, dark-colored urine, and weight loss. Allergies Allergy/AdvReac Type Severity Reaction Status Date / Time ciprofloxacin Allergy Intermediate Dysequilibr Verified 08/09/22 06:21 ium Home Medications Medication Instructions Recorded Confirmed Type apixaban 5 mg tablet (Eliquis) 5 mg PO BID 01/19/19 08/09/22 History metformin 500 mg tablet 500 mg PO BID 01/19/19 08/09/22 History multivitamin 1 tab PO QAM 01/19/19 08/09/22 History tamsulosin 0.4 mg capsule (Flomax) 0.4 mg PO DAILY 04/06/19 08/09/22 History furosemide 20 mg tablet (Lasix) 20 mg PO DIRECTED PRN swelling 05/08/19 08/09/22 History dutasteride 0.5 mg capsule 0.5 mg PO DAILY #90 caps 10/28/19 08/09/22 Rx diltiazem HCl 30 mg tablet 30 mg PO BID 11/08/21 08/09/22 History linagliptin 5 mg tablet (Tradjenta) 5 mg PO DAILY 11/08/21 08/09/22 History metoprolol succinate 100 mg 50 mg PO BID 11/08/21 08/09/22 History tablet,extended release 24 hr pravastatin 20 mg tablet 20 mg PO DAILY 11/08/21 08/09/22 History sacubitril 24 mg-valsartan 26 mg 1 tab PO BID 11/08/21 08/09/22 History tablet (Entresto) tramadol 50 mg tablet 100 mg PO Q6H PRN Pain 11/08/21 08/09/22 History cadexomer iodine 0.9 % topical gel 40 g topical Q3D #40 grams 08/02/22 08/09/22 Rx (Iodosorb) cholecalciferol (vitamin D3) 25 25 mcg PO QAM 08/02/22 08/09/22 History mcg (1,000 unit) tablet Past Med/Surg History Problem List Hyperbilirubinemia Abnormal LFTs Chronic pancreatitis Painless jaundice (Acute) Encounter for pre-operative examination Severe aortic stenosis S/p TAVR 04/2019 Post-operative state (Acute 07/06/13) Post-operative state (Acute 08/17/13) Enlarged prostate Postoperative urinary retention Prostate nodule Complication, blocked Patrick catheter (Acute) Diarrhea (Acute) Elevated prostate specific antigen (PSA) Primary malignant neoplasm of prostate with high risk of recurrence due to Deangelo score of 8 to 10 and PSA greater than 20 Acute osteomyelitis of toe of right foot (Acute) Diabetic ulcer of toe of right foot (Acute) 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 foot ulcer CHF (congestive heart failure) History of aortic valve repair 04/2019- [facility] Arthritis 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 Medtronic [id number] Micra VR TCP Serial # [id number]- CHECKED REMOTELY 06/15/22 Hyponatremia (Acute) Atrial fibrillation follows w/ Dr Andrade- last visit 06/2022 on Eliquis Diabetes Hypertension Osteoarthritis of left shoulder region Hx of shoulder replacement Medical History (Updated 09/13/23 @ 05:18 by Emeka Boston MD) CAD (coronary artery disease) 04/2019 cardiac cath showed 30% LAD lesion, large first diagonal branch with 60-70% narrowing, 40% mid segment narrowing of nondominant circumflex, 30% mid and distal RCA lesions Prostate cancer currently being treated, Dr Ashu MAN History of COVID-19 05/2022- fatigue; no hospitalized; resolved Surgical History History of transcatheter aortic valve replacement (TAVR) 04/2019- [facility] Hx of cardiac catheterization 04/2019 [facility]- no stents- aortic valve replacement done at [facility] History of permanent cardiac pacemaker placement Medtronik [id number] Micra VR TCP Serial # [id number] History of knee replacement Family History Brother Cancer 3 brothers/ prostate Other Family history non-contributory Social History Smoking Status: Never smoker Second Hand Exposure: No; Do You Dip or Chew Tobacco: No; Tobacco Cessation Education Requested by Patient: No Hx Alcohol Use: No Hx Substance Use: No Preferred Language: Brazilian Communication Ability: Effective Visual Impairment: No Limitations Hearing Ability: Normal Machine Tailer Required: No Beliefs That Will Affect Care: None marital status: Current Living Situation: Spouse Current Living Situation Comment: lives at home with current occupational status: retired 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 Other Information That Helps Us Care for You: No Feels Safe at Home: Yes Safety Concerns: Feels Safe At This Time Diet: regular Diet Comment: Diabetic diet caffeine: Yes during the past year weight has: remained stable Assistive Devices: Cane Review of Systems Review of Systems: The patient denies chest pain, palpitations, shortness of breath, dyspnea on exertion, cough, lower extremity swelling, sore throat, fevers, chills, sweats, nausea, vomiting, diarrhea , constipation, abdominal pain, pelvic pain, blood in urine or stool, lightheadedness, dizziness, headache, loss of consciousness, rash, abnormal bruising or bleeding, imbalance, focal or generalized weakness, numbness or tingling in arms or legs, generalized arthralgias or myalgias, back or neck pain, or night sweats. The review of systems is otherwise negative other than for that already noted above, and at least 10 systems have been reviewed. Physical Exam Physical Exam: The patient is awake, alert and oriented 3, well developed and well nourished, normocephalic and atraumatic, lying in bed and in no acute distress. HEENT--PERRL, EOMI, mucous membranes and oropharynx normal. Mild scleral icterus Neck--supple. No JVD. No bruits. Thyroid normal, trachea midline, no adenopathy. Heart--normal S1 and S2. No murmurs, rubs or gallops. Lungs--clear bilaterally, no respiratory distress, no accessory muscle use. Abdomen--normal bowel sounds and soft. Nontender. Obese Extremities--no cyanosis or clubbing. No edema. Dermatologic--jaundice Neurologic--cranial nerves II through XII grossly intact. Rheumatologic--normal range of motion. Psychiatric--normal affect. Results & Data Results & Data Vital Signs (Past 12 Hours) Vital Signs Temp Pulse Resp BP Pulse Ox O2 Del Method 09/12/23 23:00 94 H 20 150/80 H 96 Room Air 09/12/23 22:30 96 H 21 155/95 H 96 Room Air 09/12/23 22:00 98 H 23 160/94 H 95 Room Air 09/12/23 21:00 97 H 23 128/80 94 Room Air 09/12/23 20:51 88 21 138/95 98 Room Air 09/12/23 20:12 87 16 105/75 95 Room Air 09/12/23 20:04 96 H 09/12/23 18:08 36.7 C 103 H 16 134/77 91 Room Air Laboratory Results Laboratory Results WBC 7.65 K/ul (4.8-10.8) 09/12/23 18:55 RBC 4.36 M/uL (4.70-6.10) L 09/12/23 18:55 Hgb 13.7 g/dl (14.0-18.0) L 09/12/23 18:55 Hct 40.2 % (42.0-52.0) L 09/12/23 18:55 MCV 92.2 fL (80.0-100.0) 09/12/23 18:55 MCH 31.4 pg (25.0-34.0) 09/12/23 18:55 MCHC 34.1 g/dL (32.0-36.0) 09/12/23 18:55 RDW Std Deviation 59.1 fL (36.4-46.3) H 09/12/23 18:55 RDW Coeff of Alec 17.4 % (11.5-14.5) H 09/12/23 18:55 Plt Count 221 K/uL (130-400) 09/12/23 18:55 MPV 10.8 fL (9.4-12.4) 09/12/23 18:55 Immature Gran % (Auto) 0.5 % 09/12/23 18:55 Neut % (Auto) 59.2 % 09/12/23 18:55 Lymph % (Auto) 28.4 % 09/12/23 18:55 Nash % (Auto) 9.5 % 09/12/23 18:55 Eos % (Auto) 1.6 % 09/12/23 18:55 Baso % (Auto) 0.8 % 09/12/23 18:55 Neut # (Auto) 4.53 K/uL (1.40-6.50) 09/12/23 18:55 Lymph # (Auto) 2.17 K/uL (1.20-3.40) 09/12/23 18:55 Nash # (Auto) 0.73 K/uL (0.11-0.59) H 09/12/23 18:55 Eos # (Auto) 0.12 K/uL (0.00-0.50) 09/12/23 18:55 Baso # (Auto) 0.06 K/uL (0.00-0.20) 09/12/23 18:55 Immature Gran # (Auto) 0.04 K/uL (0.01-0.20) 09/12/23 18:55 PT 11.4 Seconds (9.0-12.0) 09/12/23 22:58 INR 1.1 (0.9-1.1) 09/12/23 22:58 Sodium 129 mmol/L (136-145) L 09/12/23 18:55 Potassium 5.4 mmol/L (3.5-5.1) H 09/12/23 18:55 Chloride 101 mmol/L (98-107) 09/12/23 18:55 Carbon Dioxide 20 mmol/L (21-32) L 09/12/23 18:55 Anion Gap 8 (3-11) 09/12/23 18:55 BUN 47 mg/dl (6-23) H 09/12/23 18:55 Creatinine 1.35 mg/dl (0.6-1.4) 09/12/23 18:55 Est Cr Clr Drug Dosing 44.4 ml/min 09/12/23 18:55 Est GFR ( Amer) 55.9 ml/min 09/12/23 18:55 Est GFR (Non-Af Amer) 48.2 ml/min 09/12/23 18:55 BUN/Creatinine Ratio 34.8 (10-20) H 09/12/23 18:55 Glucose 267 mg/dl (70-99(Fasting)) H 09/12/23 18:55 POC Glucose 230 mg/dl (70-99) H 09/13/23 01:00 Calcium 10.5 mg/dl (8.6-10.3) H 09/12/23 18:55 Total Bilirubin 11.0 mg/dl (0.2-1.0) H 09/12/23 18:55 Direct Bilirubin TNP 09/12/23 18:55 AST 134 U/L (13-39) H 09/12/23 18:55 ALT 253 U/L (7-52) H 09/12/23 18:55 Alkaline Phosphatase 349 U/L (34-104) H 09/12/23 18:55 Ammonia 34.0 umol/L (18-72) 09/12/23 18:55 Total Protein 8.1 gm/dl (6.0-8.3) 09/12/23 18:55 Albumin 4.3 gm/dl (3.4-5.0) 09/12/23 18:55 Globulin 3.8 gm/dl (2.5-4.0) 09/12/23 18:55 Albumin/Globulin Ratio 1.1 (0.9-2) 09/12/23 18:55 Lipase 64 U/L (11-82) 09/12/23 18:55 Urine Color Dark Yellow 09/12/23 Unknown Urine Appearance Clear (Clear) 09/12/23 Unknown Urine pH 5.0 (4.5-7.5) 09/12/23 Unknown Ur Specific Ruso 1.033 (1.000-1.030) H 09/12/23 Unknown Urine Protein 1+ (Negative) H 09/12/23 Unknown Urine Glucose (UA) 2+ (Negative) H 09/12/23 Unknown Urine Ketones Negative (Negative) 09/12/23 Unknown Urine Blood Negative (Negative) 09/12/23 Unknown Urine Nitrite Negative (Negative) 09/12/23 Unknown Urine Bilirubin 2+ (Negative) H 09/12/23 Unknown Urine Urobilinogen Negative (Negative) 09/12/23 Unknown Ur Leukocyte Esterase Trace (Negative) H 09/12/23 Unknown Urine WBC (Auto) 0-5 /hpf (0-5) 09/12/23 Unknown Urine RBC (Auto) 0-2 /hpf (0-2) 09/12/23 Unknown U Hyaline Cast (Auto) 0-2 /lpf (0-2) 09/12/23 Unknown U Epithel Cells (Auto) 0-2 /hpf (0-2) 09/12/23 Unknown Urine Bacteria (Auto) None Seen (None Seen) 09/12/23 Unknown Impressions Abdomen/Pelvis CT 09/12/23 19:38 Exam(s): CT ABDOMEN + PELVIS With Contrast IV Amt: 93 ml optiray 320 EXAM: CT Abdomen and Pelvis With Intravenous Contrast CLINICAL HISTORY: Reason for exam: jaundice, transaminitis. TECHNIQUE: Axial computed tomography images of the abdomen and pelvis with intravenous contrast. CTDI is 27.69 mGy and DLP is 1303.01 mGy-cm. Automated exposure control was utilized for the study. A dose lowering technique was utilized adhering to the principles of ALARA. CONTRAST: Patient received 93 ml optiray 320 of IV contrast COMPARISON: No relevant prior studies available. FINDINGS: Lung bases: Unremarkable. No mass. No consolidation. Heart: Partially imaged aortic valve replacement. Lead-less pacemaker suggested in the right ventricle. No pericardial effusion. ABDOMEN: Liver: Unremarkable. No mass. Gallbladder and bile ducts: Gallbladder sludge. No calcified stones. No evidence of cholecystitis or biliary dilatation. Pancreas: Pancreatic atrophy with slight duct dilatation may represent chronic pancreatitis changes. There is no evidence of acute pancreatitis. Spleen: Unremarkable. No splenomegaly. Adrenals: Unremarkable. No mass. Kidneys and ureters: Unremarkable. No solid mass. No hydronephrosis. Stomach and bowel: Unremarkable. No obstruction. No mucosal thickening. PELVIS: Appendix: Normal appendix. Bladder: Unremarkable. No mass. Reproductive: Unremarkable as visualized. ABDOMEN and PELVIS: Intraperitoneal space: Unremarkable. No free fluid or free air. Bones/joints: Osteopenia. No acute fracture or dislocation. Soft tissues: Small fat-containing umbilical hernia. Vasculature: Atherosclerosis. No aortic aneurysm. Lymph nodes: Unremarkable. No enlarged lymph nodes. IMPRESSION: 1. No acute findings in the abdomen or pelvis. 2. Gallbladder sludge but no evidence of cholecystitis or calcified stone. No common bile duct dilatation. No visible choledocholithiasis. 3. Changes in the pancreas suggesting background of chronic pancreatitis. No CT evidence of acute pancreatitis. Electronically signed by: Thanh Mohan M.D. 09/12/23 20:37 PM Code Status & VTE Plan Code Status Full code VTE Prophylaxis Plan VTE Prophylaxis will be ordered: Yes PG Care Time/CCT Total # of Minutes Spent Total Time Spent with Patient: Total time spent is greater than 50% in coordination of care (as documented) at patient's floor/unit and/or counseling patient: Coding Level of Care Code 32055 INT INP/OBS CARE 3/75MIN Diagnoses Painless jaundice R17 Abnormal LFTs R79.89 Severe aortic stenosis I35.0 Chronic pancreatitis K86.1 Pacemaker Z95.0 Atrial fibrillation, unspecified type I48.91 Atrial fibrillation type: unspecified Type 2 diabetes mellitus without complication, without long-term current use of insulin E11.9 Diabetes mellitus type: type 2 Diabetes mellitus skilled nursing insulin use: without keno terminal operator use Diabetes mellitus complication status: without complication Essential hypertension I10 Hypertension type: essential hypertension Hyperbilirubinemia E80.6 (6) Atrial fibrillation Atrial fibrillation type: unspecified Qualified Code(s): I48.91 - Unspecified atrial fibrillation (7) Diabetes Diabetes mellitus type: type 2 Diabetes mellitus skilled nursing insulin use: without skilled nursing use Diabetes mellitus complication status: without complication Qualified Code(s): E11.9 - Type 2 diabetes mellitus without complications (8) Hypertension Hypertension type: essential hypertension Qualified Code(s): I10 - Essential (primary) hypertension
[2023-09-12 23:57] LABS: INR 1.1 (0.9-1.1); Prothrombin Time 11.4 Seconds (9.0-12.0)
[2023-09-13] MEDS ORDERED: GLUCAGON FOR INJ 1 MG VIAL SQ PRN (00:35)
[2023-09-13] MEDS ORDERED: GLUCOSE 10 TAB/TUBE PO PRN (00:35)
[2023-09-13] MEDS ORDERED: ONDANSETRON INJ 2 MG/ML 2 ML VIAL IV PRN (00:35)
[2023-09-13] MEDS ORDERED: DEXTROSE 50% 50 ML SYRINGE IV PRN (00:35)
[2023-09-13] MEDS ORDERED: GLUCOSE 40% GEL 15 GM TUBE PO PRN (00:35)
[2023-09-13] MEDS ORDERED: CARBOHYDRATES FOR HYPOGLYCEMIA PO PRN (00:35)
[2023-09-13] MEDS: METOPROLOL TARTRATE 1 MG/ML VIAL IV SCH (01:11)
[2023-09-13] MEDS: SODIUM CHLORIDE 0.9% 1,000 ML IV SCH (01:11)
[2023-09-13] MEDS: INSULIN ASPART PER UNIT CHARGE SC SCH ×2 (01:11→18:38)
[2023-09-13] MEDS: HEPARIN SODIUM/DEXTROSE 25,000 UNITS/500 ML BAG IV SCH (01:16)
[2023-09-13 08:02] LABS: Basophils # (auto) 0.04 K/uL (0.00-0.20); Basophils % (auto) 0.6 %; Eosinophils # (auto) 0.08 K/uL (0.00-0.50); Eosinophils % (auto) 1.3 %; Hematocrit (blood only) 37.7 % (42.0-52.0); Hemoglobin 12.9 g/dl (14.0-18.0); Immature Granulocytes # (auto) 0.03 K/uL (0.01-0.20); Immature Granulocytes % (auto) 0.5 %; Lymphocytes # (auto) 1.56 K/uL (1.20-3.40); Lymphocytes % (auto) 25.2 %; Mean Corpuscular Hemoglobin 30.8 pg (25.0-34.0); Mean Corpuscular Hgb Conc 34.2 g/dL (32.0-36.0); Monocytes # (auto) 0.45 K/uL (0.11-0.59); Monocytes % (auto) 7.3 %; Neutrophils # (auto) 4.02 K/uL (1.40-6.50); Neutrophils % (auto) 65.1 %; Platelet Count 218 K/uL (130-400); RDW Coefficient of Variation 17.5 % (11.5-14.5); RDW Standard Deviation 57.2 fL (36.4-46.3); Red Blood Count 4.19 M/uL (4.70-6.10); White Blood Count 6.18 K/ul (4.8-10.8)
[2023-09-13 08:22] LABS: ANTI-Xa, UFH(UnfractionatedHep 0.48 IU/ml (0.3-0.7)
[2023-09-13 08:27] LABS: INR 1.1 (0.9-1.1); Partial Thromboplastin Ratio 1.6; Partial Thromboplastin Time 44 Seconds (21-31); Prothrombin Time 11.6 Seconds (9.0-12.0)
[2023-09-13 08:28] LABS: Albumin Globulin Ratio 1.2 (0.9-2); Albumin Level 3.8 gm/dl (3.4-5.0); BUN Creatinine Ratio 30.2 (10-20); Bilirubin,Total 11.7 mg/dl (0.2-1.0); Calcium 10.2 mg/dl (8.6-10.3); Creatinine Clr Calc Pharmacy 56.5 ml/min; Est GFR (African American) 74.9 ml/min; Est GFR (Non-African American) 64.6 ml/min; Globulin 3.3 gm/dl (2.5-4.0); Magnesium 1.8 mg/dl (1.7-2.4); Potassium 4.9 mmol/L (3.5-5.1); Total Protein 7.1 gm/dl (6.0-8.3)
[2023-09-13 09:02] LABS: Estimated Average Glucose 209 mg/dl; Hemoglobin A1C 8.9 % (4.5-5.6)
--- NOTE | 2023-09-13 10:06 | Gastrointestinal Consultation ---
Date of Consultation September 13, 2023 Assessment & Plan (1) Hyperbilirubinemia: (2) Painless jaundice: Plan -Agree with obtain MRCP as soon as able. -Check Tylenol level. -Check acute hepatitis studies. -Continue to monitor CMP & PT/INR daily. -Further recommendations pending results of MRCP. History of Present Illness Reason for Consultation: Painless jaundice Attending Physician: Lenard Ruiz History of Present Illness Patient is an 83 yo male with PMH of severe aortic stenosis, chronic pancr eatitis, prostate cancer, osteomyelitis, diabetes, toe amputation, CHF, arthritis, Atrial fibrillation, & osteoarthritis. He noted several days of painless jaundice with light colored stool. This prompted him to seek evaluation. He has no known history of liver issues. No history of alcoholism. No family history of liver disease. No recent antibiotics. notes he takes Tylenol. Patient does not have abdominal pain. INR 1.1. T bili 11 on presentation now 11.7. D bili 7.0. AST was 134 and is now 116. ALT was 253 and is now 220. Alk phos 349--> 319. He underwent a CT scan of the abdomen/pelvis that indicated the following: IMPRESSION: 1. No acute findings in the abdomen or pelvis. 2. Gallbladder sludge but no evidence of cholecystitis or calcified stone. No common bile duct dilatation. No visible choledocholithiasis. 3. Changes in the pancreas suggesting background of chronic pancreatitis. No CT evidence of acute pancreatitis. The case was discussed last night with an customer relations representative GI who advised that the patient have an MRCP. Cardiology has been consulted to determine if his pacemaker is MR safe. Allergies Allergy/AdvReac Type Severity Reaction Status Date / Time ciprofloxacin Allergy Intermediate Dysequilibr Verified 08/09/22 06:21 [facility] Home Medications Medication Instructions Recorded Confirmed Type apixaban 5 mg tablet (Eliquis) 5 mg PO BID 01/19/19 09/13/23 History metformin 500 mg tablet 1,000 mg PO BID 01/19/19 09/13/23 History multivitamin 1 tab PO QAM 01/19/19 09/13/23 History tamsulosin 0.4 mg capsule (Flomax) 0.4 mg PO DAILY 04/06/19 09/13/23 History furosemide 20 mg tablet (Lasix) 0 mg PO DIRECTED PRN swelling 05/08/19 09/13/23 History dutasteride 0.5 mg capsule 0.5 mg PO DAILY #90 caps 10/28/19 09/13/23 Rx diltiazem HCl 30 mg tablet 0 mg PO BID 11/08/21 09/13/23 History linagliptin 5 mg tablet (Tradjenta) 5 mg PO DAILY 11/08/21 09/13/23 History pravastatin 20 mg tablet 20 mg PO DAILY 11/08/21 09/13/23 History sacubitril 24 mg-valsartan 26 mg 1 tab PO BID 11/08/21 09/13/23 History tablet (Entresto) cadexomer iodine 0.9 % topical gel 40 g topical Q3D #40 grams 08/02/22 09/13/23 Rx (Iodosorb) cholecalciferol (vitamin D3) 25 25 mcg PO QAM 08/02/22 09/13/23 History mcg (1,000 unit) tablet metoprolol succinate 25 mg 37.5 mg PO DAILY 09/13/23 09/13/23 History tablet,extended release 24 hr tramadol 50 mg tablet 50 - 100 mg PO Q6H PRN Pain 09/13/23 09/13/23 History Patient History Medical History CAD (coronary artery disease) 04/2019 cardiac cath showed 30% LAD lesion, large first diagonal branch with 60-70% narrowing, 40% mid segment narrowing of nondominant circumflex, 30% mid and distal RCA lesions Prostate cancer currently being treated, Dr Ashu MAN History of COVID-19 05/2022- fatigue; no hospitalized; resolved Surgical History History of transcatheter aortic valve replacement (TAVR) 04/2019- [facility] Hx of cardiac catheterization 04/2019 [facility]- no stents- aortic valve replacement done at [facility] History of permanent cardiac pacemaker placement Radha [id number] [facility] Serial # [id number] History of knee replacement Family History Brother Cancer 3 brothers/ prostate Other Family history non-contributory Social History Smoking Status: Never smoker Second Hand Exposure: No; Do You Dip or Chew Tobacco: No; Tobacco Cessation Education Requested by Patient: No Hx Alcohol Use: No Hx Substance Use: No Preferred Language: Ukrainian Communication Ability: Effective Visual Impairment: No Limitations Hearing Ability: Normal Commercial Insurance Underwriter Required: No Beliefs That Will Affect Care: None marital status: Current Living Situation: Spouse Current Living Situation Comment: lives at home with current occupational status: retired 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 Other Information That Helps Us Care for You: No Feels Safe at Home: Yes Safety Concerns: Feels Safe At This Time Diet: regular Diet Comment: Diabetic diet caffeine: Yes during the past year weight has: remained stable Assistive Devices: Cane Review of Systems Constitutional: no fever and no chills Respiratory: no problem reported Gastrointestinal: no abdominal pain, no nausea, no vomiting, no change in bowel habits, no diarrhea/loose stools and no blood in stools Integumentary: + yellowing of the skin Physical Exam Constitutional: well developed Respiratory: normal respiratory effort Cardiovascular: Rate/Rhythm: regular rate Skin: + jaundice Psychiatric: Orientation: alert Results & Data Vital Signs (Past 12 Hours) Vital Signs Temp Pulse Pulse Resp BP BP Pulse Ox 09/13/23 09:26 90 142/85 H 09/13/23 07:52 36.8 C 99 H 20 145/70 H 93 09/13/23 05:48 90 09/13/23 04:24 36.8 C 90 17 102/75 96 09/13/23 04:23 90 102/75 09/13/23 01:32 86 159/83 H 09/13/23 01:30 92 H 09/13/23 00:39 36.5 C 90 20 171/93 H 98 09/13/23 00:00 95 H 20 142/106 H 98 09/12/23 23:00 94 H 20 150/80 H 96 09/12/23 22:30 96 H 21 155/95 H 96 O2 Del Method 09/13/23 09:26 09/13/23 07:52 Room Air 09/13/23 05:48 09/13/23 04:24 Room Air 09/13/23 04:23 09/13/23 01:32 09/13/23 01:30 09/13/23 00:39 Room Air 09/13/23 00:00 Room Air 09/12/23 23:00 Room Air 09/12/23 22:30 Room Air PG Care Time/CCT Total # of Minutes Spent Total Time Spent with Patient: Total time spent is greater than 50% in coordination of care (as documented) at patient's floor/unit and/or counseling patient: Coding Level of Care Code 31072 INT INP/OBS CARE 3/75MIN Diagnoses Hyperbilirubinemia E80.6 Painless jaundice R17
[2023-09-13] MEDS: PANTOprazole 40 MG in SYRINGE 0 ML IV SCH (12:09)
--- NOTE | 2023-09-13 15:03 | XRay Report ---
XR orbits for MRI HISTORY: 83 years-old Male Screening for foreign body for MRI COMPARISON: None TECHNIQUE: 3 views of the orbits FINDINGS: Patient is edentulous. No opaque foreign body in the orbits identified. No acute facial bone fracture . IMPRESSION: No opaque foreign body of the orbits. ACT 112: Negative or not required by law. The above report was generated using voice recognition software. It may contain grammatical, syntax o r spelling errors. Electronically signed by: Maxim Adkins M.D. 09/13/2023 3:02 PM
--- NOTE | 2023-09-13 16:43 | Hospitalist Progress Note ---
Date of Service September 13, 2023 Assessment & Plan (1) Painless jaundice: Plan: Patient presented to ED on 09/12/2023 with chief complaint of painless jaundice. He denied any further symptoms. -Labs reviewed 09/11 significant for total bilirubin 11, AST/ALT 134/253, alk phos 349, INR 1.1. -Labs reviewed 09/12 revealed worsened total bilirubin of 11.7, direct bilirubin 7, tylenol level negative, AST/ALT 116/220, alk phos 319. -CTAP 09/11 reviewed - no significant pathology -Reviewed GI consultation - recommended MRCP, hepatitis/tylenol labs -MRCP 09/12 reviewed -concerning for mild intrahepetic/extrahepetic biliary ductal dilation w/o choledocholithiasis. Mild tapered narrowing of distal CBD proximal to ampulla. 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 possible pancreatic ductal stricture within pancreatic head. no obstructing mass. -will trend lab work. -Patient ordered heart healthy, carb consistent diet. -following MRCP review, spoke with transfer center and [facility]/hospitalist team for concern of obstructing mass. Since patient is stable, they recommend supportive care 09/13 and 09/14. 09/14 evening patient may be transferred to [facility] for EUS/ERCP evaluation on 09/15. If patient were to become unstable in the next 24-48 hours, they are to be notified and will accept transfer sooner. -Reviewed plan with family and patient and they are agreeable. -Placed orders for CBC, CMP, direct bilirubin, CA-125, CA-19-9, and CEA levels in AM. (2) Diabetes: Plan: -Patient placed on ACCU checks w/ NovoLog SSI. Correction factor tightened to 25. -hold linagliptin and metformin -reviewed A1c 09/12: 8.4 -heart healthy, carb consistent diet. Plan Did speak with [facility] today via [employer] who stated patients pacemaker was compatiable with MRI machine. Patient also underwent Orbit X-ray 09/12 which was negative for metal forigen bodies prior to MRI. For chronic conditions: -hold eliquis, placed on therapeutic heparin low dose w/o bolus -hold metoprolol succinate, entresto, and diltiazem -Metoprolol tartrate 2.5mg IV q4h Diet: heart healthy, carb consistent DVT prophylaxis: heparin Full code Disposition: med/tele Admission and Anticipated Discharge Date Admission Date: September 12, 2023 Subjective Patient seen and examined with , son, daughter in law at bedside. Patient reported no symptoms at time of encounter. He denied chest pain, SOB, abdominal pain. He does have history of chronic back pain but states it is not worsening. He has lost weight recently but states his PCP wanted him to lose weight. He is unsure how much he lost. He reports decreased appetitie. Physical Exam 2 Constitutional: WD/WN, vitals as above Eyes: sceral icterus Respiratory: normal respiratory effort, lungs clear to auscultation Cardiovascular: RRR, no murmur, no edema Gastrointestinal (Abdomen): normal bowel sounds, soft, nontender, no hepatosplenomegaly Skin: jaundice Neurologic: PERRL, EOMI, accommodation nl, no face palsy, no dysarthria Psychiatric: A+Ox3, euthymic affect Results & Data Results & Data Vital Signs (Past 12 Hours) Vital Signs Temp Pulse Pulse Resp BP BP Pulse Ox 09/13/23 12:23 84 130/75 09/13/23 12:08 85 138/67 09/13/23 10:49 36.3 C L 86 20 126/79 97 09/13/23 09:41 88 135/89 09/13/23 09:26 90 142/85 H 09/13/23 07:52 36.8 C 99 H 20 145/70 H 93 09/13/23 05:48 90 O2 Del Method 09/13/23 12:23 09/13/23 12:08 09/13/23 10:49 Room Air 09/13/23 09:41 09/13/23 09:26 09/13/23 07:52 Room Air 09/13/23 05:48 Laboratory Results 09/13/23 07:25 09/13/23 07:25 Diagnostic Findings Abdomen/Pelvis CT 09/12/23 19:38 EXAM: CT Abdomen and Pelvis With Intravenous Contrast IMPRESSION: 1. No acute findings in the abdomen or pelvis. 2. Gallbladder sludge but no evidence of cholecystitis or calcified stone. No common bile duct dilatation. No visible choledocholithiasis. 3. Changes in the pancreas suggesting background of chronic pancreatitis. No CT evidence of acute pancreatitis. Electronically signed by: Thanh Mohan M.D. 09/12/23 20:37 PM Cholangiopancreatography MRI 09/13/23 12:31 MR MRCP IMPRESSION: 1. Motion degraded exam. 2. Distended gallbladder with layering sludge versus cholelithiasis. There is no gallbladder wall thickening or pericholecystic fluid to suggest acute cholecystitis. Findings could be correlated with nuclear medicine hepatobiliary scan if of further clinical concern. 3. Mild intrahepatic and extrahepatic biliary ductal dilation without choledocholithiasis identified. There is mild tapered narrowing of the distal common bile duct just proximal to the ampulla. 4. Pancreatic ductal dilation with numerous sidebranches IPMN's measuring up to 11 mm. Possible pancreatic ductal stricture within the pancreatic head. No obstructing mass identified. Electronically signed by: Maxim Adkins M.D. 09/13/2023 4:53 PM Orbit X-Ray 09/13/23 13:52 XR orbits for MRI HISTORY: 83 years-old Male Screening for foreign body for MRI IMPRESSION: No opaque foreign body of the orbits. Electronically signed by: Maxim Adkins M.D. 09/13/2023 3:02 PM PG Care Time/CCT Total # of Minutes Spent Total Time Spent with Patient: Total time spent is greater than 50% in coordination of care (as documented) at patient's floor/unit and/or counseling patient: Coding Level of Care Code 66767 SUB INP/OBS CARE 3/50MIN Diagnoses Painless jaundice R17 Type 2 diabetes mellitus without complication, without long-term current use of insulin E11.9 Diabetes mellitus complication status: without complication Diabetes mellitus long term care social worker insulin use: without long term care social worker use Diabetes mellitus type: type 2 (2) Diabetes Diabetes mellitus complication status: without complication Diabetes mellitus senior living insulin use: without long term care social worker use Diabetes mellitus type: type 2 Qualified Code(s): E11.9 - Type 2 diabetes mellitus without complications
--- NOTE | 2023-09-13 16:54 | Magnetic Resonance Report ---
MR MRCP HISTORY: 83 years-old Male painless jaundice, hyperbilirubinemia acute weight loss with jaundice COMPARISON: CT 09/12/2023 TECHNIQUE: MRCP was obtained without IV contrast. FINDINGS: Hand Launderer localizer images demonstrate no gross acute intra-abdominal abnormality. Study is motion degrad ed. Cardiomegaly with prosthetic aortic valve. Unremarkable liver. Bilateral perinephric stranding wi thout hydronephrosis. Exophytic T2 hyperintense lesion suggestive of a cyst noted within the inferior pole left kidney measuring 1.4 cm. Aorta and IVC are unremarkable. No lymphadenopathy. No bowel obst ruction or bowel wall thickening. Moderately atrophic pancreas. There are numerous as T2 hyperintense foci of the pancreas measuring up to 11 mm which are contiguous with the main pancreatic duct. There is cystic dilation of the pancrea tic duct, most pronounced in the neck and body measuring up to 6 mm. No obstructing pancreatic ductal mass or stone identified. There is narrowing of the pancreatic ducts in the necrotic body with possi ble ductal stricturing. Common bile duct demonstrates fusiform dilation measuring up to 10 mm. There is mild intrahepatic ductal prominence as well. Tapered narrowing of the distal common bile duct just upstream to the ampulla. No choledocholithiasis identified on this exam. The gallbladder is distende d with layering sludge versus cholelithiasis in the fundus. No significant gallbladder wall thickenin g or pericholecystic edema. IMPRESSION: 1. Motion degraded exam. 2. Distended gallbladder with layering sludge versus cholelithiasis. There is no gallbladder wall thi ckening or pericholecystic fluid to suggest acute cholecystitis. Findings could be correlated with [facility] medicine hepatobiliary scan if of further clinical concern. 3. Mild intrahepatic and extrahepatic biliary ductal dilation without choledocholithiasis identified. There is mild tapered narrowing of the distal common bile duct just proximal to the ampulla. 4. Pancreatic ductal dilation with numerous sidebranches IPMN's measuring up to 11 mm. Possible pancr eatic ductal stricture within the pancreatic head. No obstructing mass identified. ACT 112: Negative or not required by law. The above report was generated using voice recognition software. It may contain grammatical, syntax o r spelling errors. Electronically signed by: Maxim Adkins M.D. 09/13/2023 4:53 PM
[2023-09-13] MEDS ORDERED: INSULIN ASPART PER UNIT CHARGE SC SCH (21:00)
--- OUTSIDE RECORDS SUMMARY | 2023-09-14 00:38 | External Medical Summary | Summary of Care ---
Author Name Unknown [facility] [address] [place] [address] Phone [phone] Care Team Providers Care Plugging Machine Operator Name Role Phone Bailee Colon MD Primary Care Provi caroline Encounter Details Date Type Department Care Team (Latest Contact Info) Description 06/29/2023 [facility] [address] [place] [address] [facility] [address] [place] [address] Referred for management of medication therapy* Allergies No known active allergiesdocumented as of this encounter (statuses as of 07/15/2023) Medications Medication Sig Dispensed Refills Start Date End Date Status linaGLIPtin 5 MG Oral Tablet (Tradjenta) Take 1 Tablet by mouth in the morning. 0 Active metFORMIN HCl 500 MG Oral Tablet (Glucophage) Take 1 Tablet by mouth 2 times a day with morning and evening meals. 0 Active Apixaban 5 MG Oral Tablet Take 1 Tablet by mouth in the morning and 1 Tablet before bedtime. 0 Active Metoprolol Tartrate 50 MG Oral Tablet (Lopressor) Take 1 Tablet by mouth in the morning and 1 Tablet before bedtime. Take 1 Tablet by mouth in the morning and 1 and a half Tablet before bedtime. 0 Active Furosemide 20 MG Oral Tablet (Lasix) Take 1 Tablet by mouth in the morning. 0 Active Pravastatin Sodium 20 MG Oral Tablet (Pravachol) Take 1 Tablet by mouth in the morning. 0 Active traMADol HCl 50 MG Oral Tablet (Ultram) Take 1 Tablet by mouth every 6 hours as needed. 0 Active Tamsulosin HCl 0.4 MG Oral Capsule (Flomax)Indicatio ns:BPH with obstruction/lower urinary tract symptoms Take 1 Capsule by mouth in the morning. 90 Capsule 3 10/09/2022 Active Entresto 24-26 MG Oral Tablet Take 1 Tablet by mouth in the morning and 1 Tablet before bedtime. 0 Active Dutasteride 0.5 MG Oral Capsule (Avodart)Indicati ons:BPH with obstruction/lower urinary tract symptoms Take 1 Capsule by mouth in the morning. 90 Capsule 3 06/18/2023 Active CLOBETASOL PROPIONATE 0.05 % EX OINTIndications:D ermatitis Apply to affected area twice daily 60GM 5 04/03/2006 06/29/2023 Discontinued (Medication List Clean Up) CELEBREX 200 MG PO CAPS one twcie a day 0 06/29/2023 Discontinued (Medication List Clean Up) documented as of this encounter (statuses as of 07/15/2023) Active Problems Problem Noted Date Diagnosed Date Elevated prostate specific antigen (PSA) 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 Dermatitis 04/03/2006 documented as of this encounter (statuses as of 07/15/2023) Social History Tobacco Use Types Packs/Day Years Used Date Smoking Tobacco: Never Smokeless Tobacco: Never Sex and Gender Information Value Date Recorded Sex Assigned at Not on file Gender Identity Not on file Sexual Orientation Not on file Job Start Date Occupation Industry Not on file Not on file Not on file documented as of this encounter Progress Notes * Diane Shoemaker [facility] - 06/29/2023 11:32 AM EDT Luís Murray is a 82 year old male. Objective: Review of patient's allergies indicates: No Known Allergies Current Outpatient Medications - WARNING: List may be incomplete due to filtering Medication Sig Dispense Refill Dutasteride 0.5 MG Oral Capsule (Avodart) Take 1 Capsule by mouth in the morning. 90 Capsule 3 Entresto 24-26 MG Oral Tablet Take 1 Tablet by mouth in the morning and 1 Tablet before bedtime. Tamsulosin HCl 0.4 MG Oral Capsule (Flomax) Take 1 Capsule by mouth in the morning. 90 Capsule 3 linaGLIPtin 5 MG Oral Tablet (Tradjenta) Take 1 Tablet by mouth in the morning. metFORMIN HCl 500 MG Oral Tablet (Glucophage) Take 1 Tablet by mouth 2 times a day with morning andevening meals. Metoprolol Tartrate 50 MG Oral Tablet (Lopressor) Take 1 Tablet by mouth in the morning and 1 Tablet before bedtime. Take 1 Tablet by mouth in the morning and 1 and a half Tablet before bedtime. Pravastatin Sodium 20 MG Oral Tablet (Pravachol) Take 1 Tablet by mouth in the morning. traMADol HCl 50 MG Oral Tablet (Ultram) Take 1 Tablet by mouth every 6 hours as needed. Apixaban 5 MG Oral Tablet Take 1 Tablet by mouth in the morning and 1 Tablet before bedtime. Furosemide 20 MG Oral Tablet (Lasix) Take 1 Tablet by mouth in the morning. Immunization History Administered Date(s) Administered COVID-19 mRNA, LNP-s, No Preserve, 2-Dose Series (Moderna) 05/11/2020, 06/08/2020, 04/05/2021 TMR Interventions Incomplete Medication Therapy Recommendations No medication therapy recommendations to display Completed Medication Therapy Recommendations No medication therapy recommendations to display Assessment & Plan Indication, effectiveness, safety and convenience of his medications were reviewed today. The patient's medical conditions were assessed, evaluated, and deemed meeting goals of drug therapy, with thefollowing exceptions. Additional Notes: None Summary Time Spent: No Previous Data Supervising pharmacist who provided the service: No Previous Data Takeaway Information Who was the recipient of the CMR service: beneficiary Language Template for the Patient Takeaway: Malay I attest that I have reviewed and updated the patient's conditions, allergies, and medications to the best of my ability. Patient provided medication list gathered by: N/A Diane Shoemaker RPh 06/29/2023, 11:33 AM documented in this encounter Miscellaneous Notes * MTM Personal Medication List - Diane Shoemaker RPh - 06/29/2023 11:23 AM EDT Medication How I take it Why I use it Prescriber Dutasteride 0.5 MG Oral Capsule (Avodart) Take 1 Capsule by mouth in the morning. Help with urination Berny Wakefield MD Entresto 24-26 MG Oral Tablet Take 1 Tablet by mouth in the morning and 1 Tablet before bedtime. High blood pressure Sandi Huertas CRNP linaGLIPtin 5 MG Oral Tablet (Tradjenta) Take 1 Tablet by mouth in the morning. Diabetes Berny Wakefield MD metFORMIN HCl 500 MG Oral Tablet (Glucophage) Take 1 Tablet by mouth 2 times a day with morning andevening meals. Diabetes Berny Wakefield MD Metoprolol Tartrate 50 MG Oral Tablet (Lopressor) Take 1 Tablet by mouth in the morning and 1 and ahalf Tablet before bedtime. High heart rate Bailee Colon MD Pravastatin Sodium 20 MG Oral Tablet (Pravachol) Take 1 Tablet by mouth in the morning. High cholesterol Bailee Colon MD Tamsulosin HCl 0.4 MG Oral Capsule (Flomax) Take 1 Capsule by mouth in the morning. Help with urination Berny Wakefield MD traMADol HCl 50 MG Oral Tablet (Ultram) Take 1 Tablet by mouth every 6 hours as needed. Pain Bailee Colon MD * MTM To-Do-List - Diane Shoemaker RPh - 06/29/2023 11:19 AM EDT Images from the original note were not included. What we talked about: What I should do: The importance of taking your medication as prescribed Your medicine works best when taken as prescribed. It can be hard to remember to take daily medications. Consider making it a part of your daily routine. Pair taking your medication with something you do every day, like brushing your teeth or eating a meal. Consider setting daily alarms to help remind yourself when it is time to take your medicine. Using a pill box can also help you organize your medicines. Pill boxes allow you to fill each day slot with your daily medicine and help you track when your next dose is due. What we talked about: What I should do: It is also important to monitor your blood sugar regularly. Make sure to record your readings in a log and take them with you to your appointments. Providing these readings to your healthcare providers can help them better control your blood sugar. Continue testing and recording sugar readings What we talked about: What I should do: It is also important to monitor your blood pressure regularly. Make sure to record your readings clarissa log and take them with you to your appointments. Providing these readings to your healthcare providers can help them better control your blood pressure. Continue to test blood pressure readings documented in this encounter Plan of Treatment Upcoming Encounters Date Type Department Care Team (Late st Contact Info) Description 08/30/2023 9:00 AM EDT Office Visit Interventional Pain Center, [facility] [address] [place] [address] Luci Sweet PA-C 132 [facility] [place] [address] 10/14/2023 8:15 AM EDT Office Visit Urology, [facility] 132 [facility] [place] [address] Berny Wakefield MD 27 [facility] [address] [place] [address] Health Maintenance Due Date Last Done Comments Depression Screening 1952 DTaP,Tdap,and Td Vaccines (1 - Tdap) 09/03/1959 Zoster Vaccines (1 of 2) 1990 COVID-19 Vaccine (2022-24 season) 2022 04/05/2021, 11/08/2020, 06/08/2020, Additional history exists Pneumococcal Vaccine: 65+ Years Completed 03/01/2014, 04/29/2012 Influenza Vaccine (FLU shot) Completed 05/2022, 02/13/2022, 01/13/2021 GARDASIL-HPV IMMUNIZATION SERIES Aged Out No longer eligible based on patient's age to complete this topic Hepatitis B Aged Out No longer eligi ble based on patient's age to complete this topic MENINGOCOCCAL (MENACTRA/MENVEO) Aged Out No longer eligible based on patient's age to complete this topic documented as of this encounter Medical Devices Not on filedocumented as of this encounter Visit Diagnoses Diagnosis Referred for management of medication therapy- Primary Encounter for long-term (current) use of other medications documented in this encounter Care Teams Plugging Machine Operator Relationship Specialty Start Date End Date Bailee Colon MD 6 [facility] [address] [place] [address] PCP - General Family Medicine 06/27/23 documented as of this encounter
--- OUTSIDE RECORDS SUMMARY | 2023-09-14 00:38 | External Medical Summary | Summary of Care ---
Author Name Unknown Organization [facility] Address [address] [place] [address] Phone [phone] Care Team Providers Care Carpenter Maintenance Name Role Phone Bailee Colon MD Primary Care Provi caroline Encounter Details Date Type Department Care Team (Late st Contact Info) Description 08/20/2023 Population Health External Data Unspecified Department Allergies No known active allergiesdocumented as of this encounter (statuses as of 08/21/2023) Medications Medication Sig Dispensed Refills Start Date End Date Status linaGLIPtin 5 MG Oral Tablet (Tradjenta) Take 1 Tablet by mouth in the morning. Active metFORMIN HCl 500 MG Oral Tablet (Glucophage) Take 1 Tablet by mouth 2 times a day with morning and evening meals. Active Apixaban 5 MG Oral Tablet Take 1 Tablet by mouth in the morning and 1 Tablet before bedtime. Active Metoprolol Tartrate 50 MG Oral Tablet (Lopressor) Take 1 Tablet by mouth in the morning and 1 Tablet before bedtime. Take 1 Tablet by mouth in the morning and 1 and a half Tablet before bedtime. Active Furosemide 20 MG Oral Tablet (Lasix) Take 1 Tablet by mouth in the morning. Active Pravastatin Sodium 20 MG Oral Tablet (Pravachol) Take 1 Tablet by mouth in the morning. Active traMADol HCl 50 MG Oral Tablet (Ultram) Take 1 Tablet by mouth every 6 hours as needed. Active Tamsulosin HCl 0.4 MG Oral Capsule (Flomax)Indications: BPH with obstruction/lower urinary tract symptoms Take 1 Capsule by mouth in the morning. 90 Capsule 3 10/09/2022 Active Entresto 24-26 MG Oral Tablet Take 1 Tablet by mouth in the morning and 1 Tablet before bedtime. Active Dutasteride 0.5 MG Oral Capsule (Avodart)Indications :BPH with obstruction/lower urinary tract symptoms Take 1 Capsule by mouth in the morning. 90 Capsule 3 06/18/2023 Active documented as of this encounter (statuses as of 08/21/2023) Active Problems Problem Noted Date Diagnosed Date Elevated prostate specific antigen (PSA) 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 Dermatitis 04/03/2006 documented as of this encounter (statuses as of 08/21/2023) Social History Tobacco Use Types Packs/Day Years Used Date Smoking Tobacco: Never Smokeless Tobacco: Never Sex and Gender Information Value Date Recorded Sex Assigned at Not on file Gender Identity Not on file Sexual Orientation Not on file Job Start Date Occupation Industry Not on file Not on file Not on file documented as of this encounter Plan of Treatment Upcoming Encounters Date Type Department Care Team (Late st Contact Info) Description 10/14/2023 8:15 AM EDT Office Visit Urology, [facility] [address] [facility] [place] [address] Berny Wakefield MD 27 [facility] [address] [place] [address] Health Maintenance Due Date Last Done Comments Depression Screening 1952 DTaP,Tdap,and Td Vaccines (1 - Tdap) 09/03/1959 Zoster Vaccines (1 of 2) 1990 COVID-19 Vaccine ( season) 2022 04/05/2021, 11/08/2020, 06/08/2020, Additional history [...] Not on filedocumented as of this encounter Care Teams Carpenter Maintenance Relationship Specialty Start Date End Date Bailee Colon MD 6 [facility] ([place], [place]) [address] [place] [address] PCP - General Family Medicine 06/27/23 documented as of this encounter
--- OUTSIDE RECORDS SUMMARY | 2023-09-14 00:38 | External Medical Summary | Summary of Care ---
Author Name Unknown Organization [facility] Address [address] [place] [address] Phone [phone] Care Team Providers Care Train Controller Name Role Phone Bailee Colon MD Primary Care Provi caroline Encounter Details Date Type Department Care Team (Late st Contact Info) Description 05/22/2023 Telephone Access Center, [facility] [address] [facility] *DO NOT REMOVE THIS DEPARTMENT* [place] [address] Services, Scheduling [address] [place] [address] Allergies No known active allergiesdocumented as of [...] morning and 1 Tablet before bedtime. Active documented as of this encounter (statuses [...] on file documented as of this encounter Miscellaneous Notes * Telephone Encounter - Katie Mclain OSA - 05/22/2023 8:49 AM EST Pt is calling because she has not heard anything about the prior auth for pt procedure. She isalso asking if there are any cancellations because pt is in a lot of pain. Please call [phone] 9:45am and then [phone] afterwards Katie Vega documented in this encounter Plan of Treatment Upcoming Encounters Date Type Department Care Team (Late st Contact Info) Description 10/14/2023 8:15 AM EDT Office Visit Urology, [facility] 132 [facility] [place] [address] Berny Wakefield MD 27 [facility] [address] [place] [address] Health Maintenance Due Date Last Done Comments Depression Screening 1952 DTaP,Tdap,and Td Vaccines (1 - Tdap) 09/03/1959 Zoster Vaccines (1 of 2) 1990 COVID-19 Vaccine (7 - 2022-24 season) 2022 04/05/2021, 11/08/2020, 06/08/2020, Additional history [...] filedocumented as of this encounter Care Teams Train Controller Relationship Specialty Start Date End Date Bailee Colon MD 6 [facility] [address] [place] [address] PCP - General Family Medicine 06/27/23 documented as of this encounter
--- OUTSIDE RECORDS SUMMARY | 2023-09-14 00:39 | External Medical Summary | Continuity of Care Document ---
Author Name Unknown Organization [facility] Address [address] [place], [place] [id number] Care Team Providers Care Bargeman Name Role Phone Bailee Colon Primary Care Physician [phone] [id number] Date[facility]s): 07/04/23 - 07/04/23 [facility] [address], [address] [place] [address] [phone] Encounter Diagnosis Anticoagulated(Discharge Diagnosis) - 07/04/23 HLD (hyperlipidemia)(Discharge Diagnosis) - 07/04/23 Afib(Discharge Diagnosis) - 07/04/23 HTN (hypertension)(Discharge Diagnosis) - 07/04/23 Diastolic CHF(Discharge Diagnosis) - 07/04/23 Discharge Disposition: Home or Self Care Attending Physician: LEVAR Prajapati Sarah A Allergies, Adverse Reactions, Alerts Substance Reaction Severity Status ciprofloxacin Dysequilbrium Active Assessment and Plan Extracted from: Title:Cardiology Office Visit Note Author:LEVAR Ro rd, Sarah A Date:07/04/23 Impression: 1. 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 2. Diabetes mellitus type 2 since 2014. 3. Hypertension. 4. Obesity. 5. Bilateral total knee replacements in 2013. 6. Atrial fibrillation with a rate control strategy. 7. Osteoarthritis. 8. Microalbuminuria. 9. An echocardiogram 03/2023 Severe hypokinesis of the anteroseptal and inferoseptal michael and apex, mildly reduced LV systolic function with EF of 45%, grade 3 diastolic dysfunction, severe biatrial dilation, dilated ascending aorta of 4.2 cm, well-seated 29 mm GAVIN 3 transcatheter aortic valve replacement, moderate mitral valve regurgitation, moderate to severe tricuspid valve regurgitation, severely elevated pulmonary artery pressures, estimated PASP of 61 mmHg 10. 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 11. Preoperative cardiac catheterization 04/2019 at [facility] with no significant left main disease, 30% mid LAD lesion; large first diagonal branch with a 60-70% narrowing; 40% mid segment narrowing of a nondominant circumflex; 30% mid and distal RCA lesions; moderate pulmonary hypertension. Mr. Mtz is doing well and is pleased that he has been so stable over the last few months. He continues on anticoagulation for history of afib. No s/s of bleeding. His device download for May shows that he is only pacing about 3% of the time. His blood pressure is controlled. He appears euvolemic. He is tolerating low dose Entresto. His potassium does not leave room to increase. He will have a cbc, cmp and lipids prior to his appointment in 4 months. Immunizations Given and Recorded Vaccine Date Status Refusal Reason influenza virus vaccine, inactivated 01/31/23 Give n influenza virus vaccine, inactivated 1 02/13/22 Gi rosi influenza virus vaccine, inactivated 01/13/21 Give n SARS-CoV-2 (COVID-19) mRNA-1273 vaccine 04/05/21 R ecorded SARS-CoV-2 (COVID-19) mRNA-1273 vaccine 11/08/20 R ecorded SARS-CoV-2 (COVID-19) mRNA-1273 vaccine 05/11/20 R ecorded tetanus toxoids-diphtheria, Td (Adult) 11/15/20 Gi rosi pneumococcal 13-valent vaccine 2 03/01/14 Recorded pneumococcal 23-valent vaccine 3 04/29/12 Recorded 1Result Comment: Alise Stockton LPN 2Result Comment: 2019-02-04: Historical information-source unspecified 3Result Comment: 2019-02-04: Historical information-source unspecified Medications Albuterol (Eqv-ProAir HFA) 90 mcg/inh inhalation aerosol Start: 05/02/21 10:12:00 EST, 2 puff, inhaled, q6h, Disp# 8.5 g, Refills: 3, Pharmacy: [facility][id number] Start Date: 05/02/21 Status: Ordered dutasteride 0.5 mg oral capsule Start: 07/20/20 11:13:00 EDT, 1 cap, PO, Daily, Disp# 30 cap, Refills: 3, Pharmacy: [facility]/pharmacy #[id number] Start Date: 07/20/20 Status: Ordered Eliquis 5 mg oral tablet Start: 03/01/23 9:38:00 EST, 1 tab, PO, bid, Disp# 60 tab, Refills: 11, Pharmacy: [id number] Start Date: 03/01/23 Status: Ordered Entresto 24 mg-26 mg oral tablet Start: 04/25/23 11:47:00 EST, 1 tab, PO, bid, Disp# 60 tab, Refills: 11, Pharmacy: [facility]/pharmacy #[id number] Start Date: 04/25/23 Status: Ordered Flexeril 5 mg oral tablet Start: 06/25/23 10:35:00 EDT, 1 tab, PO, qhs, Disp# 30 tab, Refills: 0, PRN: as needed for spasm, [id number] Start Date: 06/25/23 Status: Ordered Flomax 0.4 mg oral capsule Start: 11/15/20 8:06:00 EDT, 1 cap, PO, qAM, Disp# 90 cap, Refills: 3, [id number] Start Date: 11/15/20 Status: Ordered Flonase 50 mcg/inh nasal spray Start: 03/27/23 12:45:00 EST, 1 spray, each nostril, Daily, Disp# 16 g, Refills: 3, [id number] Start Date: 03/27/23 Status: Ordered furosemide 20 mg oral tablet Start: 12/26/21 8:58:00 EDT, See Instructions, Disp# 90 tab, Refills: 4, as needed for weight gain 2 lbs in 24 hours or 5 lbs in a week, Pharmacy: [id number] Start Date: 12/26/21 Status: Ordered inhaler spacer Start: 10/14/20 11:17:00 EDT, See Instructions, Disp# 1 each, dispense 1, [id number] Start Date: 10/14/20 Status: Ordered meclizine 25 mg oral tablet Start: 02/18/23 14:48:00 EST, See Instructions, Disp# 15 tab, Refills: 1, 1 tab PO daily PRN dizziness, PRN: as needed for dizziness, [id number] Start Date: 02/18/23 Status: Ordered metFORMIN 500 mg oral tablet Start: 06/03/23 9:33:00 EST, See Instructions, Disp# 360 tab, Refills: 1, TAKE 2 TABLETS BY MOUTH WITH NOON MEAL AND WITH EVENING MEAL, Pharmacy: [id number] Start Date: 06/03/23 Status: Ordered metoprolol succinate 25 mg oral tablet, extended release Start: 03/04/23 10:46:00 EST, 1.5 tab, PO, Daily, Disp# 135 tab, Refills: 3, Pharmacy: [facility]/pharmacy#[id number] Start Date: 03/04/23 Status: Ordered multivitamin Start: 07/27/21 8:00:00 EDT, 1 tab, PO, Daily Start Date: 07/27/21 Status: Ordered One Touch Finepoint (25G) Lancets Start: 06/26/17 8:54:00, See Instructions, Disp# 1 box, Refills: 6, test daily, Dx : E11.9, Pharmacy: [facility]/pharmacy #[id number] Start Date: 06/26/17 Status: Ordered One Touch Ultra Test Strips 100 ct Start: 10/27/19 16:37:00 EDT, See Instructions, Disp# 100 each, Refills: 6, test daily, Dx: E11.9, Pharmacy: [facility]/pharmacy #[id number], 166.8, cm, 08/25/19 11:30:00 EDT, Height, 120.6, kg, 04/30/19 11:15:00EST, Weight Start Date: 10/27/19 Status: Ordered One Touch UltraMini Glucose Monitor Start: 06/26/17 8:52:00, See Instructions, Disp# 1 unit, Refills: 0, test daily, Dx : E11.9, Pharmacy: [facility]/pharmacy #[id number] Start Date: 06/26/17 Status: Ordered pravastatin 20 mg oral tablet Start: 08/28/22 17:41:00 EDT, See Instructions, Disp# 90 tab, Refills: 3, TAKE 1 TABLET BY MOUTH EVERYDAY AT BEDTIME, Pharmacy: [id number] Start Date: 08/28/22 Status: Ordered Tradjenta 5 mg oral tablet Start: 08/29/22 8:05:00 EDT, See Instructions, Disp# 90 tab, Refills: 3, TAKE 1 TABLET BY MOUTH EVERY DAY, Pharmacy: [facility]/pharmacy #[id number] Start Date: 08/29/22 Status: Ordered traMADol 50 mg oral tablet Start: 06/25/23 10:35:00 EDT, See Instructions, Disp# 120 tab, Refills: 0, 1-2 tab PO q6h for pain not to exceed 400 mg/day, Note to Pharmacy: PDMP verified,, PRN: as needed for pain, Pharmacy: [facility]/pharmacy #[id number] Start Date: 06/25/23 Status: Ordered Vitamin D3 Start: 07/27/21 8:00:00 EDT Start Date: 07/27/21 Status: Ordered Mental Status 07/04/23 Barriers to Learning one year None evide nt Mandatory Health Literacy Documentation Yes Health Literacy Communication Barriers N ever Primary Language Portuguese Problem List Condition Confirmation Course Effective Dates Status H ealth Status Informant Pacemaker Confirmed Active Diastolic CHF Confirmed Active S/P TAVR (transcatheter aortic valve replacement) Confirmed Active Hypertension Confirmed Active Incomplete bladder emptying Confirmed Active (atherosclerosis) Confirmed Active Male urinary stress incontinence Confirmed Active Prostate cancer Confirmed Active Type 2 diabetes mellitus with diabetic neuropathy, unspecified Confirmed Active Osteoarthritis of knee Confirmed Active Afib Confirmed Active Persistent proteinuria Confirmed Active Venous insufficiency of right leg Confirmed Active Vitamin D deficiency Confirmed Active Weight disorder Confirmed Active Diagnosis Diagnosis Type Effective Dates Health Status Clinical Service Informant Anticoagulated Discharge Diagnosis 07/04/23 Non-Specified HLD (hyperlipidemia) Discharge Diagnosis 07/04/23 Non-Specified Diastolic CHF Discharge Diagnosis 07/04/23 Non-Specified Afib Discharge Diagnosis 07/04/23 Non-Specified HTN (hypertension) Discharge Diagnosis 07/04/23 Non-Specified Procedures Procedure Date Related Diagnosis Body Site Status Osteomyelitis of right foot 1 08/09/22 Completed Single Chamber Pacemaker MICRA 2 05/04/19 Completed Transcatheter aortic valve replacement 04/30/19 Completed Ultrasound - renal 3 01/30/19 Comp leted Arthroplasty of knee 4 Co mpleted CTR - Carpal tunnel release Completed 1Right Fourth Toe Osteomyelitis 2Single Chamber Pacemaker MICRA 31. no hydronephrosis 2. distended bladder demonstrating a postvoid residual of 634cc 4L with patient-matched implant Vital Signs Most recent to oldest [Reference Range]: 1 Patient Weight 100.7 kg (07/04/23 7:59 AM) Heart Rate 87 bpm (07/04/23 7:59 AM) Respiratory Rate 18 br/min (07/04/23 7:59 AM) Blood Pressure 136/82mmHg (07/04/23 7:59 AM) BP Location # 1 Left Arm (07/04/23 7:59 AM) Social History Social History Type Response Smoking Status Never smoked cigaret lisandra Sex Male Cardiology Outpatient Note * LEVAR Prajapati Sarah A: PERFORM Event Display: Cardiology Outpt Note Authored Date: [id number] Primary Care Provider MD Isaiah, Bailee Bailey Chief Complaint denies resent chest pain/ pressure, Palpitations, heart racing, dizziness or lightheadedness no SOB edema. Walk 100 yards 3x day without change -no resent ER visits- History of Present Illness Mr. Mtz presents for follow up of TAVR aortic valve replacement secondary to severe aortic stenosis, postoperative left bundle-branch block with pauses leading to placement of a [employer]onic Micra pacemaker, hypertension, hyperlipidemia and mild left ventricular dysfunction with an EF in the range of 45% by [id number] with type III diastolic dysfunction. He has not needed any extra doses of furosemide in quite a while. His weight has been stable. The scales between [facility] and ours have a discrepancy and he has not truly lost 6 kg. No swelling in his lower extremities. No sob. Still working in his garage and keeping busy. No palpitations Review of Systems All other systems reviewed and negative except as discussed in the HPI Physical Exam Vitals & Measurements HR:87(Monitored) RR:18 BP:136/82 SpO2:96% WT:100.7kg WT:100.700kg(Dosing) Physical Examination General: Alert and oriented, No acute distress. Respiratory: Lungs are clear to auscultation, Respirations are non-labored. Cardiovascular: Normal rate, Regular rhythm, No murmur, No edema, no carotid bruits to auscultation bilaterally. Integumentary: Warm, Dry, [place] Neurologic: Alert, Oriented. Cognition and Speech: Speech clear and coherent. Psychiatric: Cooperative, Appropriate mood & affect. Assessment/Plan Impression: 1. 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 2. Diabetes mellitus type 2 since 2014. 3. Hypertension. 4. Obesity. 5. Bilateral total knee replacements in 2013. 6. Atrial fibrillation with a rate control strategy. 7. Osteoarthritis. 8. Microalbuminuria. 9. An echocardiogram 03/2023 Severe hypokinesis of the anteroseptal and inferoseptal michael and apex, mildly reduced LV systolic function with EF of 45%, grade 3 diastolic dysfunction, severe biatrial dilation, dilated ascending aorta of 4.2 cm, well-seated 29 mm GAVIN 3 transcatheter aortic valve replacement, moderate mitral valve regurgitation, moderate to severe tricuspid valve regurgitation, severely elevated pulmonary artery pressures, estimated PASP of 61 mmHg 10. 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 11. Preoperative cardiac catheterization 04/2019 at [facility] with no significant left main disease, 30% mid LAD lesion; large first diagonal branch with a 60-70% narrowing; 40% mid segment narrowing of a nondominant circumflex; 30% mid and distal RCA lesions; moderate pulmonary hypertension. Mr. Mtz is doing well and is pleased that he has been so stable over the last few months. He continues on anticoagulation for history of afib. No s/s of bleeding. His device download for May shows that he is only pacing about 3% of the time. His blood pressure is controlled. He appears euvolemic. He is tolerating low dose Entresto. His potassium does not leave room to increase. He will have a cbc, cmp and lipids prior to his appointment in 4 months. Problem List/Past Medical History Ongoing Afib (atherosclerosis) Diastolic CHF Hypertension Incomplete bladder emptying Male urinary stress incontinence Osteoarthritis of knee Pacemaker Persistent proteinuria Prostate cancer S/P TAVR (transcatheter aortic valve replacement) Type 2 diabetes mellitus with diabetic neuropathy, unspecified Venous insufficiency of right leg Vitamin D deficiency Weight disorder Historical Aortic stenosis Knee pain, right Toe ulcer Procedure/Surgical History Osteomyelitis of right foot| Service Date: 08/09/2022Single Chamber Pacemaker MICRA| Service Date: 05/04/2019Transcatheter aortic valve replacement| Service Date: 04/30/2019Ultrasound - renal| Service Date: 01/30/2019Arthroplasty of kneeCTR - Carpal tunnel release Medications albuterol(Albuterol (Eqv-ProAir HFA) 90 mcg/inh inhalation aerosol), 2 puff, inhaled, q6h, 3 refills apixaban(Eliquis 5 mg oral tablet), 1 tab, PO, bid cholecalciferol(Vitamin D3) cyclobenzaprine(Flexeril 5 mg oral tablet), 5 mg= 1 tab, PO, qhs, PRN diabetes supplies(One Touch Ultra Test Strips 100 ct), See Instructions, 6 refills diabetic supplies(One Touch UltraMini Glucose Monitor), See Instructions diabetic supplies(One Touch Finepoint (25G) Lancets), See Instructions, 6 refills dutasteride(dutasteride 0.5 mg oral capsule), 0.5 mg= 1 cap, PO, Daily, 3 refills fluticasone nasal(Flonase 50 mcg/inh nasal spray), 1 spray, each nostril, Daily, 3 refills furosemide(furosemide 20 mg oral tablet), See Instructions inhalation accessory(inhaler spacer), See Instructions linagliptin(Tradjenta 5 mg oral tablet), See Instructions, 3 refills meclizine(meclizine 25 mg oral tablet), See Instructions, PRN, 1 refills metFORMIN(metFORMIN 500 mg oral tablet), See Instructions metoprolol(metoprolol succinate 25 mg oral tablet, extended release), 37.5 mg= 1.5 tab, PO, Daily, 3 refills multivitamin, 1 tab, PO, Daily pravastatin(pravastatin 20 mg oral tablet), See Instructions sacubitril-valsartan(Entresto 24 mg-26 mg oral tablet), 1 tab, PO, bid, 11 refills tamSULOsin(Flomax 0.4 mg oral capsule), 0.4 mg= 1 cap, PO, qAM, 3 refills traMADol(traMADol 50 mg oral tablet), See Instructions, PRN Allergies ciprofloxacinDysequilbrium Social History Smoking Status Never smoked cigarettes Alcohol - Denies Alcohol Use - Comments: AUDIT-C score = 0 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 Cancer: Father. 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 - Vasc Surg Member Role: Lifetime Relationship Address: Address: [address] [facility] [address] [place] [address] Name: MD Isaiah, Bailee Bailey Position: Physician Member Role: Primary Care Provider Address: Address: [address] [place] [address] [address] [place] [address] Name: Virginia Maddox Kyle Position: Pharmacist Member Role: Pharmacy - Lifetime Address: Address: [address] [place] [id number] Care Team Related Persons Name: GUNNAR MTZ Address: home [address] [facility] [facility] [id number] Name: NALINI MTZ Name: JOSS MTZ Name: JOSS MTZ Address: home No Address Provided"
--- OUTSIDE RECORDS SUMMARY | 2023-09-14 00:39 | External Medical Summary | Summary of Care ---
Author Name Unknown Organization [facility] Address [address] [place] [address] Phone [phone] Care Team Providers Care An/Sqq 89(V)15 Sonar System Journeyman Name Role Phone Lucy Valladares MD Primary Care Provider Reason for Visit * Reason Comments Follow Up Encounter Details Date Type Department Care Team (Late st Contact Info) Description 06/18/2023 8:15 AM EDT Office Visit Urology, [facility] [address] [facility] [place] [address] Berny Wakefield MD 27 [facility] [address] [place] [address] Prostate cancer (HCC)*; BPH with obstruction/lower urinary tract symptoms; Elevated prostate specific antigen (PSA); Nocturia Allergies No known active allergiesdocumented as of this encounter (statuses as of 06/18/2023) Medications Medication Sig Dispensed Refills Start Date End Date Status CLOBETASOL PROPIONATE 0.05 % EX OINTIndications: Dermatitis Apply to affected area twice daily 60GM 5 04/03/2006 Active Additional Information Patient not taking.Reported on 11/09/2020 CELEBREX 200 MG PO CAPS one twcie a day 0 Active linaGLIPtin 5 MG Oral Tablet (Tradjenta) Take [...] and 1 Tablet before bedtime. 0 Active Furosemide 20 MG Oral Tablet (Lasix) Take 1 Tablet by mouth in the morning. 0 Active Pravastatin Sodium 20 MG Oral Tablet (Pravachol) Take 1 Tablet by mouth in the morning. 0 Active traMADol HCl 50 MG Oral Tablet (Ultram) Take 1 Tablet by mouth every 6 hours as needed. 0 Active Tamsulosin HCl 0.4 MG Oral Capsule (Flomax)Indicati ons:BPH with obstruction/lowe r urinary tract symptoms Take 1 Capsule by mouth in the morning. 90 Capsule 3 10/09/2022 Active Entresto 24-26 MG Oral Tablet Take 1 Tablet by mouth in the morning and 1 Tablet before bedtime. 0 Active Dutasteride 0.5 MG Oral Capsule (Avodart)Indicat ions:BPH with obstruction/lowe r urinary tract symptoms Take 1 Capsule by mouth in the morning. 90 Capsule 3 06/18/2023 Active Dutasteride 0.5 MG Oral Capsule (Avodart)Indicat ions:BPH with obstruction/lowe r urinary tract symptoms TAKE 1 CAPSULE BY MOUTH EVERY DAY 90 Capsule 3 08/28/2022 4 Discontinue d(Refill) Hospital, Clinic, or Other Facility Administered Medication Ordered Dose Route Frequency Start Date End Date Status Leuprolide Acetate (3 Month) (Lupron) inj 22.5 mgIndications:Prostate cancer (HCC) 22.5 mg IM ONCE 06/18/2023 06/18/2023 Active documented as of this encounter (statuses as of 06/18/2023) Active Problems Problem Noted Date Diagnosed Date Elevated prostate specific antigen (PSA) 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 Dermatitis 04/03/2006 documented as of this encounter (statuses as of 06/18/2023) Social History Tobacco Use Types Packs/Day Years Used Date Smoking Tobacco: Never Smokeless Tobacco: Never Sex and Gender Information Value Date Recorded Sex Assigned at Not on file Gender Identity Not on file Sexual Orientation Not on file Job Start Date Occupation Industry Not on file Not on file Not on file documented as of this encounter Progress Notes * Berny Wakefield MD - 06/18/2023 8:28 AM EDT [id number] PCP: LUCY VALLADARES [address] [place] [address] Dr Portillo [address] [place] [address], [place] [address] [phone] Luís Murray is a 82 year old male, who presents for 4 month follow-up of his prostate cancer on intermittent androgen deprivation therapy. Unfortunately, the patient's PSA has once again jumped. Patient's last Lupron injection was a three-month depot 1 year ago May 2022. He denies changes in his symptoms, LUTS or general health. He is here with his . BPH: Patient is being seen for BPH today. He has had the following symptoms: nocturia x 2-3, decreased. Severity is mild. He has tried tamsulosin and dutasteride. Retention and enciso placement 2019. He has previously had a prostate biopsy done September 2021 demonstrating prostate cancer. Problem has been present for years. Problem is getting better. Prostate cancer: Patient is being seen for evaluation of an elevated PSA. Previous evaluation includes referral to . Prostate biopsy done September 2021 demonstrating Franklin 4 + 4 adenocarcinoma, 4+3 adenocarcinoma in all biopsies on the left-hand side, 6/. Right-sided biopsies demonstrate no cancer. Rad Onc consult October 2021, declined intervention. Staging with bone scan and CT scan summer 2021. Started on intermittent hormone therapy secondary to rise in fluctuation of PSA including a value of 25 in April of 2022. Three-month Lupron provided May 2022, May 2023. PSA Results done at [facility]: 17.89 (May 2023) 0.27 (Dec 2022) 0.7 (Aug 2022) 24.87 (Apr 2022) 19 (Jun 2021) 10.45 (Nov 2020) 12.8 (Aug 2020) 8.74 (Apr 2020) 6.74 (Dec 2019) PSA 8 (Aug 2019) 21.2 (May 2019) PSA Results: Lab Results Component Value Date/Time PSA - [facility] 22.73 (H) 01/08/2022 05:08 PM PSA - [facility] 2.38 02/11/2006 09:53 AM Current Outpatient Medications Medication Sig Dispense Refill linaGLIPtin 5 MG Oral Tablet (Tradjenta) Take 1 Tablet by mouth in the morning. metFORMIN HCl 500 MG Oral Tablet (Glucophage) Take 1 Tablet by mouth 2 times a day with morning andevening meals. Apixaban 5 MG Oral Tablet Take 1 Tablet by mouth in the morning and 1 Tablet before bedtime. Metoprolol Tartrate 50 MG Oral Tablet (Lopressor) Take 1 Tablet by mouth in the morning and 1 Tablet before bedtime. Furosemide 20 MG Oral Tablet (Lasix) Take 1 Tablet by mouth in the morning. Pravastatin Sodium 20 MG Oral Tablet (Pravachol) Take 1 Tablet by mouth in the morning. traMADol HCl 50 MG Oral Tablet (Ultram) Take 1 Tablet by mouth every 6 hours as needed. Dutasteride 0.5 MG Oral Capsule (Avodart) TAKE 1 CAPSULE BY MOUTH EVERY DAY 90 Capsule 3 Tamsulosin HCl 0.4 MG Oral Capsule (Flomax) Take 1 Capsule by mouth in the morning. 90 Capsule 3 Entresto 24-26 MG Oral Tablet Take 1 Tablet by mouth in the morning and 1 Tablet before bedtime. CLOBETASOL PROPIONATE 0.05 % EX OINT Apply to affected area twice daily (Patient not taking: See nursing care plan.) 60GM 5 CELEBREX 200 MG PO CAPS one twcie a day (Patient not taking: Reported on 06/18/2023) No current facility-administered medications for this visit. Review of patient's allergies indicates: No Known Allergies Social History: Social History Tobacco Use Smoking status: Never Smokeless tobacco: Never Substance Use Topics Alcohol use: Not on file Vaping/E-Cigarette Use Vaping/E-Cigarette Substances Vaping/E-Cigarette Devices Family History Problem Relation Age of Onset Other (scleroderma) Mother Cirrhosis Father Past Surgical History: Procedure Laterality Date ANESTH, TOTAL KNEE REPLACEMENT Bilateral CARPAL TUNNEL SURGERY COLONOSCOPY SHOULDER SURGERY PROCEDURE NEC Past Medical History: Diagnosis Date Elevated cholesterol OA (osteoarthritis) Obesity Patient Active Problem List Diagnosis Code Dermatitis L30.9 Elevated prostate specific antigen (PSA) R97.20 BPH with obstruction/lower urinary tract symptoms N40.1, N13.8 Constitutional: (-) fever and (-) chills ENT: (-) stridor Pulmonary: (+) dyspnea with exertion Male : see HPI Musculoskeletal: (+) back pain/problems Neurology: (+) loss of balance Psychiatry: (-) negative: no depression or anxiety Physical Exam Nursing note reviewed. Constitutional: General: He is not in acute distress. Appearance: Normal appearance. He is obese. He is not ill-appearing or toxic-appearing. Comments: Using cane HENT: Head: Normocephalic and atraumatic. Right Ear: External ear normal. Left Ear: External ear normal. Nose: Nose normal. Mouth/Throat: Mouth: Mucous membranes are moist. Eyes: Extraocular Movements: Extraocular movements intact. Cardiovascular: Pulses: Normal pulses. Pulmonary: Effort: Pulmonary effort is normal. No respiratory distress. Abdominal: Palpations: Abdomen is soft. Tenderness: There is no abdominal tenderness. Musculoskeletal: Cervical back: Normal range of motion and neck supple. Lymphadenopathy: Cervical: No cervical adenopathy. Skin: Coloration: Skin is not cyanotic or pale. Neurological: Mental Status: He is alert and oriented to person, place, and time. Motor: No weakness. Gait: Gait normal. Psychiatric: Attention and Perception: Attention normal. Mood and Affect: Mood and affect normal. Impression/Plan: 82-year-old male with history of prostate cancer, recurrent PSA after 1 year. Findings reviewed with the patient. We are pleased that we have obtained a year's worth of PSA response out of a three-month injection. Will provide another three-month injection at next available opportunity once cleared by insurance. Will continue with Q 4 month PSA values. Dutasteride refilled as the patient will be due for refill prior to his next follow-up visit. Patient's chronic back pain is noted. There pending sacroiliac injection. He feels this is characteristic of his chronic back pain, declines consideration of further imaging, negative in 2021. Above content is personally reviewed. Patient vocalizes good understanding of the treatment plan. Berny Wakefield MD 8:28 AM 06/18/2023 documented in this encounter Nursing Notes * An Harvey LPN - 06/18/2023 8:16 AM EDT 4 month ret, PSA results. Patient presents with . No urinary complaints. Taking tamsulosin, dutasteride Last lupron 22.5 mg on 06/11/22 documented in this encounter Plan of Treatment Upcoming Encounters Date Type Department Care Team (Latest Contact Info) Description 06/26/2023 9:00 AM EDT Nurse Only Urology, [facility] [address] [place] [address] Long Nurse Urology [facility] [address] [place] [address] 06/27/2023 2:10 PM EDT Hospital Encounter OR [facility], Operating Room [facility] [address] [place] [address] Robin Linares, DO [address] [place] [address] 06/27/2023 2:10 PM EDT - 06/27/2023 2:35 PM EDT Surgery OR [facility], Operating Room [facility] [address] [place] [address] Robin Linares, DO [address] [place] [phone] INJECTION SACROILIAC JOINT 10/14/2023 8:15 AM EDT Office Visit Urology, [facility] [address] [place] [address] Berny Wakefield MD [address] [place] [address] [place] [address] Scheduled Procedures Name Priority Associated Diagnoses Date/Ti me INJECTION SACROILIAC JOINT Inflammation of sacroiliac joint (HCC) 06/27/2023 2:10 PM EDT Health Maintenance Due Date Last Done Comments Depression Screening 1952 DTaP,Tdap,and Td Vaccines (1 - Tdap) 09/03/1959 Zoster Vaccines (1 of 2) 1990 COVID-19 Vaccine (7 - 2023-24 season) 2022 04/05/2021, 11/08/2020, 06/08/2020, Additional history [...] as of this encounter Visit Diagnoses Diagnosis Prostate cancer (HCC)- Primary Malignant neoplasm of prostate BPH with obstruction/lower urinary tract symptoms Hypertrophy of prostate with urinary obstruction and other lower urinary tract symptoms (LUTS) Elevated prostate specific antigen (PSA) Nocturia Inflammation of sacroiliac joint (HCC) Sacroiliitis, not elsewhere classified documented in this encounter Care Teams An/Sqq 89(V)15 Sonar System Journeyman Relationship Specialty Start Date End Date Lucy Valladares MD 6 [facility] [address] Portillo [address] [place] [address], [place] [address] PCP - General 04/06/99 documented as of this encounter
--- OUTSIDE RECORDS SUMMARY | 2023-09-14 00:39 | External Medical Summary | Summary of Care ---
Author Name Unknown Organization [facility] Address [address] [place] [address] Phone [phone] Care Team Providers Care Camera Repair Technician Name Role Phone Bailee Colon MD Primary Care Provi caroline Encounter Details Date Type Department Care Team (Late st Contact Info) Description 06/27/2023 Population Health External Data Unspecified Department Allergies No known active allergiesdocumented as of this encounter (statuses as of 07/02/2023) Medications Medication Sig Dispensed Refills Start Date [...] 0 Active Dutasteride 0.5 MG Oral Capsule (Avodart)Indications :BPH with obstruction/lower urinary tract symptoms Take 1 Capsule by mouth in the morning. 90 Capsule 3 06/18/2023 Active documented as of this encounter (statuses as of 07/02/2023) Active Problems Problem Noted Date Diagnosed Date Elevated prostate specific antigen (PSA) 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 Dermatitis 04/03/2006 documented as of this encounter (statuses as of 07/02/2023) Social History Tobacco Use Types Packs/Day Years [...] AM EDT Office Visit [facility] [address] [place] [address] Luci Sweet PA-C [address] [place] [address] 10/14/2023 8:15 AM EDT Office Visit Urology, [facility] [address] [place] [address] Berny Wakefield MD 27 [facility] [address] [place] [address] Health Maintenance Due Date Last Done Comments Depression Screening 1952 DTaP,Tdap,and Td Vaccines (1 - Tdap) 09/03/1959 Zoster Vaccines (1 of 2) 1990 COVID-19 Vaccine ( - season) 2022 04/05/2021, 11/08/2020, 06/08/2020, Additional history [...] filedocumented as of this encounter Care Teams Camera Repair Technician Relationship Specialty Start Date End Date Bailee Colon MD 6 [facility] [address], [place] [address] PCP - General Family Medicine 06/27/23 documented as of this encounter
--- OUTSIDE RECORDS SUMMARY | 2023-09-14 00:39 | External Medical Summary | Summary of Care ---
Author Name Unknown Organization [facility] Address [address] [place] [address] Phone [phone] Care Team Providers Care Motor And Controls Tester Name Role Phone Leoncio Valladares MD Primary Care Provider Encounter Details Date Type Department Care Team (Late st Contact Info) Description 05/21/2023 Population Health External Data Unspecified Department Allergies No known active allergiesdocumented as of this encounter (statuses as of 05/22/2023) Medications Medication Sig Dispensed Refills Start Date End Date Status CLOBETASOL PROPIONATE 0.05 % EX OINTIndications:De rmatitis Apply to affected area twice daily 60GM [...] every 6 hours as needed. 0 Active Dutasteride 0.5 MG Oral Capsule (Avodart)Indicatio ns:BPH with obstruction/lower urinary tract symptoms TAKE 1 CAPSULE BY MOUTH EVERY DAY 90 Capsule 3 08/28/2022 Active Tamsulosin HCl 0.4 MG Oral Capsule (Flomax)Indication s:BPH with obstruction/lower urinary tract symptoms Take 1 Capsule by mouth in the morning. 90 Capsule 3 10/09/2022 Active Entresto 24-26 MG Oral Tablet Take 1 Tablet by mouth in the morning and 1 Tablet before bedtime. 0 Active documented as of this encounter (statuses as of 05/22/2023) Active Problems Problem Noted Date Diagnosed Date Elevated prostate specific antigen (PSA) 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 Dermatitis 04/03/2006 documented as of this encounter (statuses as of 05/22/2023) Social History Tobacco Use Types Packs/Day Years [...] Department Care Team (Latest Contact Info) Description 06/18/2023 8:15 AM EDT Office Visit Urology, [facility] [address] [place] [address] Berny Wakefield MD [address] [place] [address] [address] [place] [address] 07/10/2023 7:35 AM EDT Hospital Encounter OR [facility], Operating Room [facility] [address] [place] [phone] Robin Linares, [address] [place] [phone] 07/10/2023 7:35 AM EDT - 07/10/2023 8:00 AM EDT Surgery OR [facility], Operating Room [facility] [address] [place] [phone] Robin Linares, [address] [place] [address] INJECTION SACROILIAC JOINT Scheduled Procedures Name Priority Associated Diagnoses Date/Ti me INJECTION SACROILIAC JOINT Inflammation of sacroiliac joint (HCC) 07/10/2023 7:35 AM EDT Health Maintenance Due Date Last Done Comments Depression Screening 1952 DTaP,Tdap,and Td Vaccines (1 - Tdap) 09/03/1959 Zoster Vaccines (1 of 2) 1990 COVID-19 Vaccine (7 - season) 2022 04/05/2021, 11/08/2020, 06/08/2020, Additional [...] filedocumented as of this encounter Care Teams Motor And Controls Tester Relationship Specialty Start Date End Date Leoncio Valladares MD 6 Lissy Portillo [address] [place] [address], [place] [address] PCP - General 04/06/99 documented as of this encounter
--- OUTSIDE RECORDS SUMMARY | 2023-09-14 00:39 | External Medical Summary | Summary of Care ---
Author Name Unknown Organization [facility] Address [address] [place] [address] Phone [phone] Care Team Providers Care Video Tape Transferrer Name Role Phone Leoncio Valladares MD Primary Care Provider Reason for Visit * Reason Onset Date Comments Advice 06/17/2023 Encounter Details Date Type Department Care Team (Late st Contact Info) Description 06/17/2023 Telephone Urology, [facility] [address] [place], [place] [phone] Services, Scheduling [address] [place] [address] Advice Allergies No known active allergiesdocumented as of [...] encounter Miscellaneous Notes * Telephone Encounter - An Harvey LPN - 06/18/2023 8:06 AM EDT Results not received. Spoke with Glenna at [facility] lab, she will fax results now. * Telephone Encounter - An Harvey LPN - 06/17/2023 10:37 AM EDT Requested results this morning via fax, aware. Will make sure results are received prior to tomorrow's appt. * Telephone Encounter - Maritza Goldsmith OSA - 06/17/2023 8:53 AM EDT Pt spouse calling in stating that pt had PSA done last week at [facility] [address]. states she doesn't have their fax number, but the last time this happened where they did not send results to the office the nurse faxed them and requested results to be sent here. asking ifthe office can do this again, please advise if the office can reach out and get results for tomorrow's follow up appointment. documented in this encounter Plan of Treatment Upcoming Encounters Date Type Department Care Team (Latest Contact Info) Description 06/27/2023 2:10 PM EDT Hospital Encounter OR [facility], Operating Room [facility] [address] [place] [address] Robin Linares, [address] [place] [phone] 06/27/2023 2:10 PM EDT - 06/27/2023 2:35 PM EDT Surgery OR [facility], Operating Room [facility] [address] [place] [address] Robin Linares, [address] [place] [address] INJECTION SACROILIAC JOINT Scheduled Procedures Name Priority Associated Diagnoses Date/Ti me INJECTION SACROILIAC JOINT Inflammation of sacroiliac joint (HCC) 06/27/2023 2:10 PM EDT Health Maintenance Due Date Last Done Comments Depression Screening 1952 DTaP,Tdap,and Td Vaccines (1 - Tdap) 09/03/1959 Zoster Vaccines (1 of 2) 1990 COVID-19 Vaccine (24 season) 2022 04/05/2021, 11/08/2020, 06/08/2020, Additional history [...] filedocumented as of this encounter Care Teams Video Tape Transferrer Relationship Specialty Start Date End Date Leoncio Valladares MD 6 [facility] [address] [place] [address] PCP - General 04/06/99 documented as of this encounter
--- OUTSIDE RECORDS SUMMARY | 2023-09-14 00:39 | External Medical Summary | Summary of Care ---
Author Name Unknown Organization [facility] Address [address] [place] [address] Phone [phone] Care Team Providers Care Rib Chopper Name Role Phone Leoncio Valladares MD Primary Care Provider Reason for Visit * Reason Onset Date Comments Precert Not Needed 06/18/2023 Encounter Details Date Type Department Care Team (Late st Contact Info) Description 06/18/2023 Telephone Urology, [facility] 132 [place] [address] Berny Wakefield MD 27 [facility] [address] Precert Not Needed Allergies No known active allergiesdocumented as of [...] (Avodart)Indicatio ns:BPH with obstruction/lower urinary tract symptoms Take 1 Capsule by mouth in the morning. 90 Capsule 3 06/18/2023 Active Hospital, Clinic, or Other Facility Administered Medication [...] encounter Miscellaneous Notes * Telephone Encounter - Gilma Romero OSA - 06/18/2023 8:55 AM EDT See referral message * Telephone Encounter - An Harvey LPN - 06/18/2023 8:38 AM EDT Urology Pre-Cert Request Medication/Disease State Information: Medication: Leuprolide Acetate - J Lupron Depot 3 month - IM 11.25 mg every 3 months for 1 dose(s) [place] [id number] Diagnosis (including ICD-10): Prostate Cancer- C61 Medication(s) Tried/Failed/Contraindicated: n/a See corresponding visit note(s) for additional supporting clinical information. Office Information: Prescriber: Berny Wakefield MD documented in this encounter Plan of Treatment Upcoming Encounters Date Type Department Care Team (Latest Contact Info) Description 06/26/2023 9:00 AM EDT Nurse Only Urology, [facility] [address] [place] [address] [place], Nurse Urology [facility] [address] [place] [address] 06/27/2023 2:10 PM EDT Hospital Encounter OR [facility], Operating Room [facility] [address] [place] [phone] Robin Linares DO [address] [place] [phone] 06/27/2023 2:10 PM EDT - 06/27/2023 2:35 PM EDT Surgery OR [facility], Operating Room [facility] [address] [place] [address] Robin Linares DO [address] [place] [address] INJECTION SACROILIAC JOINT 10/14/2023 8:15 AM EDT Office Visit Urology, [facility] [address] [place] [address] Berny Wakefield MD [address] [place] [address] [place] [address] Scheduled Procedures Name Priority Associated Diagnoses Date/Ti me INJECTION SACROILIAC JOINT Inflammation of sacroiliac joint (HCC) 06/27/2023 2:10 PM EDT Health Maintenance Due Date Last Done Comments Depression Screening 1952 DTaP,Tdap,and Td Vaccines (1 - Tdap) 09/03/1959 Zoster Vaccines (1 of 2) 1990 COVID-19 Vaccine (7 - 2022- season) 2022 04/05/2021, 11/08/2020, 06/08/2020, Additional history [...] filedocumented as of this encounter Care Teams Rib Chopper Relationship Specialty Start Date End Date Leoncio Valladares MD [address] [facility] [address] Portillo [address] [place] [address], [place] [address] PCP - General 04/06/99 documented as of this encounter
--- OUTSIDE RECORDS SUMMARY | 2023-09-14 00:39 | External Medical Summary | Summary of Care ---
Author Name Unknown Organization [facility] Address [address] [place] [address] Phone [phone] Care Team Providers Care Locker Room Supervisor Name Role Phone Leoncio Valladares MD Primary Care Provider Reason for Visit * Reason Onset Date Comments Order Request 05/22/2023 Encounter Details Date Type Department Care Team (Late st Contact Info) Description 05/22/2023 Telephone Urology, [facility] 132 [facility] [place] [address] Berny Wakefield MD 27 [facility] 270 [place] [address] Order Request Allergies No known active allergiesdocumented as of [...] Telephone Encounter - An Harvey LPN - 05/22/2023 9:30 AM EST Spoke with pt's spouse. Asked that order be faxed directly to them at work number below. Advised that I will also fax order to [facility] lab. Appt notes updated to reflect where labs will be done and obtain results prior to May appt. * Telephone Encounter - Tata Rodas OSA - 05/22/2023 8:37 AM EST Pt called and is scheduled for may with Dr Wakefield can fax his psa lab order to [phone] documented in this encounter Plan of Treatment Upcoming Encounters Date Type Department Care Team (Latest Contact Info) Description 06/18/2023 8:15 AM EDT Office Visit Urology, [facility] [address] [place] [address] Berny Wakefield MD [address] [place] [address] [place] [address] 07/10/2023 7:35 AM EDT Hospital Encounter OR [facility], Operating Room [facility] [address] [place] [phone] Robin Linares, [address] [place] [phone] 07/10/2023 7:35 AM EDT - 07/10/2023 8:00 AM EDT Surgery OR [facility], Operating Room [facility] [address] [place] [phone] Robin Linares, [address] [place] [phone] INJECTION SACROILIAC JOINT Scheduled Procedures Name Priority [...] filedocumented as of this encounter Care Teams Locker Room Supervisor Relationship Specialty Start Date End Date Leoncio Valladares MD 6 [facility] [address] [place] [address] PCP - General 04/06/99 documented as of this encounter
--- OUTSIDE RECORDS SUMMARY | 2023-09-14 00:39 | External Medical Summary | Continuity of Care Document ---
Author Name Unknown Organization [address] Address [address] [place] [address] [phone] Care Team Providers Care Greenhouse Technician Name Role Phone Bailee Colon Primary Care Physician [phone] Encounter [facility] [id number] Date(s): 06/12/23 - 06/12/[address] [place] [id number] [facility], [address] [place] [address] [phone] Encounter Diagnosis Type 2 diabetes mellitus with diabetic neuropathy, unspecified(Discharge Diagnosis) - 06/12/23 Toe ulcer(Discharge Diagnosis) - 06/12/23 Prostate cancer(Discharge Diagnosis) - 06/12/23 Afib(Discharge Diagnosis) - 06/12/23 (atherosclerosis)(Discharge Diagnosis) - 06/12/23 Diastolic CHF(Discharge Diagnosis) - 06/12/23 Osteoarthritis of knee(Discharge Diagnosis) - 06/12/23 Discharge Disposition: Home or Self Care Attending Physician: MD Colon Ravishankar E Referring Physician: MD Colon Ravishankar E Allergies, Adverse Reactions, Alerts Substance Reaction Severity Status ciprofloxacin Dysequilbrium Active Assessment and Plan Extracted from: Title:Office Visit Note Author:MD Colon Ravishan kar E Date:06/12/23 1.Type 2 diabetes mellitus with diabetic neuropathy, unspecified - Repeat A1C today - Current regimen well tolerated and working well for him - Foot exam completed today, no new neuropathy. - Eye exam recently completed, pt to request records be sent 2.Toe ulcer - Healed at this point, follows with podiatry 3.Prostate cancer - Followed by Urology, in treatment with lupron and activesurveillance 4.Afib - Management per cardiology, chronic/stable - anticoagulated on apixaban, metoprolol 5. (atherosclerosis) - Management per cardiology, chronic/stable - On pravastatin 6.Diastolic CHF - Management per cardiology, chronic/stable - On Entesto 7.Osteoarthritis of knee - Continue prn tramadol - Working well for him, acknowledges risk f/u PRN or [id number]. Time: 40mins 5- pre-visit chart review 30- visit, inclusive of history, exam, and discussion of assessment/plan 5- post-visit documentation/orders/coordination of care Immunizations Given and Recorded Vaccine Date Status [...] q6h, Disp# 8.5 g, Refills: 3, [id number] Start Date: 05/02/21 Status: Ordered dutasteride 0.5 mg oral capsule Start: 07/20/20 11:13:00 EDT, 1 cap, PO, Daily, Disp# 30 cap, Refills: 3, Pharmacy: [id number] Start Date: 07/20/20 Status: Ordered Eliquis 5 mg oral tablet Start: 03/01/23 9:38:00 EST, 1 tab, PO, bid, Disp# 60 tab, Refills: 11, Pharmacy: [id number] Start Date: 03/01/23 Status: Ordered Entresto 24 mg-26 mg oral tablet Start: 04/25/23 11:47:00 EST, 1 tab, PO, bid, Disp# 60 tab, Refills: 11, [id number] Start Date: 04/25/23 Status: Ordered Flexeril 5 mg oral tablet Start: 05/20/23 10:50:00 EST, 1 tab, PO, qhs, Disp# 30 tab, Refills: 0, PRN: as needed for spasm, [facility]: [id number] Start Date: 05/20/23 Status: Ordered Flomax 0.4 mg oral capsule Start: 11/15/20 8:06:00 EDT, 1 cap, PO, qAM, Disp# 90 cap, Refills: 3, [facility]: [id number] Start Date: 11/15/20 Status: Ordered Flonase 50 mcg/inh nasal spray Start: 03/27/23 12:45:00 EST, 1 spray, each nostril, Daily, Disp# 16 g, Refills: 3, [facility]: [id number] Start Date: 03/27/23 Status: Ordered furosemide 20 mg oral tablet Start: 12/26/21 8:58:00 EDT, See Instructions, Disp# 90 tab, Refills: 4, as needed for weight gain 2 lbs in 24 hours or 5 lbs in a week, Pharmacy: [id number] Start Date: 12/26/21 Status: Ordered inhaler spacer Start: 10/14/20 11:17:00 EDT, See Instructions, Disp# 1 each, dispense 1, [id number] Start Date: 10/14/20 Status: Ordered meclizine 25 mg oral tablet Start: 02/18/23 14:48:00 EST, See Instructions, Disp# 15 tab, Refills: 1, 1 tab PO daily PRN dizziness, PRN: as needed for dizziness, [facility]: [id number] Start Date: 02/18/23 Status: Ordered metFORMIN 500 mg oral tablet Start: 06/03/23 9:33:00 EST, See Instructions, Disp# 360 tab, Refills: 1, TAKE 2 TABLETS BY MOUTH WITH NOON MEAL AND WITH EVENING MEAL, Pharmacy: [facility] [id number] Start Date: 06/03/23 Status: Ordered metoprolol succinate 25 mg oral tablet, extended release Start: 03/04/23 10:46:00 EST, 1.5 tab, PO, Daily, Disp# 135 tab, Refills: 3, [id number] Start Date: 03/04/23 Status: Ordered multivitamin Start: 07/27/21 8:00:00 EDT, 1 tab, PO, Daily Start Date: 07/27/21 Status: Ordered One Touch Finepoint (25G) Lancets Start: 06/26/17 8:54:00, See Instructions, Disp# 1 box, Refills: 6, test daily, Dx : E11.9, [id number] Start Date: 06/26/17 Status: Ordered One Touch Ultra Test Strips 100 ct Start: 10/27/19 16:37:00 EDT, See Instructions, Disp# 100 each, Refills: 6, test daily, Dx: E11.9, [id number], 166.8, cm, 08/25/19 11:30:00 EDT, Height, 120.6, kg, 04/30/19 11:15:00EST, Weight Start Date: 10/27/19 Status: Ordered One Touch UltraMini Glucose Monitor Start: 06/26/17 8:52:00, See Instructions, Disp# 1 unit, Refills: 0, test daily, Dx : E11.9, [id number] Start Date: 06/26/17 Status: Ordered pravastatin 20 mg oral tablet Start: 08/28/22 17:41:00 EDT, See Instructions, Disp# 90 tab, Refills: 3, TAKE 1 TABLET BY MOUTH EVERYDAY AT BEDTIME, [facility]acy: [id number] Start Date: 08/28/22 Status: Ordered Tradjenta 5 mg oral tablet Start: 08/29/22 8:05:00 EDT, See Instructions, Disp# 90 tab, Refills: 3, TAKE 1 TABLET BY MOUTH EVERY DAY, [id number] Start Date: 08/29/22 Status: Ordered traMADol 50 mg oral tablet Start: 06/03/23 13:09:00 EST, See Instructions, Disp# 120 tab, Refills: 0, 1-2 tab PO q6h for pain not to exceed 400 mg/day, Note to Pharmacy: PDMP verified,, PRN: as needed for pain, Pharmacy: [id number] Start Date: 06/03/23 Status: Ordered Vitamin D3 Start: 07/27/21 8:00:00 EDT Start Date: 07/27/21 Status: Ordered Mental Status 06/12/23 Barriers to Learning one year None evide nt Mandatory Health Literacy Documentation Yes Health Literacy Communication Barriers N ever Primary Language Iraqi Problem List Condition Confirmation Course Effective Dates [...] Effective Dates Health Status Clinical Service Informant Type 2 diabetes mellitus with diabetic neuropathy, unspecified Discharge Diagnosis 06/12/23 Diastolic CHF Discharge Diagnosis 06/12/23 Toe ulcer Discharge Diagnosis 06/12/23 Prostate cancer Discharge Diagnosis 06/12/23 (atherosclerosis) Discharge Diagnosis 06/12/23 Afib Discharge Diagnosis 06/12/23 Osteoarthritis of knee Discharge Diagnosis 06/12/23 Procedures Procedure Date Related Diagnosis Body Site [...] to oldest [Reference Range]: 1 Patient Weight 107 kg (06/12/23 7:57 AM) Temperature [36.5-37.9 DegC] 36.7 DegC (06/12/23 7:57 AM) Social History Social History Type Response Smoking Status Never smoked cigaret lisandra Sex Male FCM Outpt Note * MD Isaiah, Bailee Bailey: PERFORM Event Display: FCM Outpt Note Authored Date: [id number] Chief Complaint Pt here for 6 mo check History of Present Illness Alejandra is an 82yoM here today for 6m f/u visit. He is a type 2 diabetic managed on tradjenta, and metformin, with last A1C 5.5% in 11/2022. Due for repeat now. He's been generally doing well. Prostate CA under surveillance. Seeing pain management for his back, pending injection in June. Knee stable on tramadol, not interested in other treatments, longstanding/chronic use at this point. Seeing cardiology for Afib, CHF, and atherosclerosis. Feels symptoms are adequately controlled. Review of Systems 01/12pt ROS reviewed/negative except as noted in HPI. Physical Exam Vitals & Measurements T:36.7C SpO2:96% WT:107.000kg(Dosing) WT:107kg PHQ2 Data(Data Documented on:06/12/2023 07:57) Emotional health assessment NEGATIVE GENERAL APPEARANCE: The patient is alert, oriented and in no acute distress. VITALS: As above. HEENT: Head is normocephalic/atraumatic. CARDIOVASCULAR: +2dp pulses. RRR, no m/r/g. LUNGS: Respirations even and unlabored. CTAB, no w/r/r. EXTREMITIES: No cyanosis, clubbing or edema NEUROLOGICAL: Grossly non-focal exam. SKIN: Warm and dry without any rash. DM FOOT EXAM +2 dp pulses gross sensation intact 12/12 monofilament intact Assessment/Plan 1.Type 2 diabetes mellitus with diabetic neuropathy, unspecified - Repeat A1C today - Current regimen well tolerated and working well for him - Foot exam completed today, no new neuropathy. - Eye exam recently completed, pt to request records be sent 2.Toe ulcer - Healed at this point, follows with podiatry 3.Prostate cancer - Followed by Urology, in treatment with lupron and activesurveillance 4.Afib - Management per cardiology, chronic/stable - anticoagulated on apixaban, metoprolol 5. (atherosclerosis) - Management per cardiology, chronic/stable - On pravastatin 6.Diastolic CHF - Management per cardiology, chronic/stable - On Entesto 7.Osteoarthritis of knee - Continue prn tramadol - Working well for him, acknowledges risk f/u PRN or [id number]. 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 Cancer: Father. Health Status Family Member(s) Immunizations Vaccine Date Status influenza virus vaccine, inactivated 01/31/2023 Given influenza virus vaccine, inactivated 02/13/2022 Given Comments : Alise Stockton LPN SARS-CoV-2 (COVID-19) mRNA-1273 vaccine 04/05/2021 Recorded influenza virus vaccine, inactivated 01/13/2021 Given tetanus toxoids-diphtheria, Td (Adult) 11/15/2020 Given SARS-CoV-2 (COVID-19) mRNA-1273 vaccine 11/08/2020 Recorded SARS-CoV-2 (COVID-19) mRNA-1273 vaccine 05/11/2020 Recorded pneumococcal 13-valent vaccine 03/01/2014 Recorded Comments : 2019-02-04: Historical information-source unspecified pneumococcal 23-valent vaccine 04/29/2012 Recorded Comments : 2019-02-04: Historical information-source unspecified Recommendations Health Maintenance Pending(in the next year) OverDue Medicare Annual Wellness Visit due11/15/21and every 1year Due Adult COVID-19 Vaccination due06/12/23Unknown Frequency Adult Social Determinants of Health Screening due06/12/23Unknown Frequency Shingles Vaccine due06/12/23One-time only Due In Future Adult Influenza Vaccine not due until09/29/23and every 1year Diabetes Management A1c not due until12/13/23and every day Satisfied(in the past 1 year) Satisfied Adult Influenza Vaccine on01/31/23.Satisfied by BETH Manning, Maddie Body Mass Index on03/01/23.Satisfied by ARTIE Wiley Carli Diabetes Management A1c on12/12/22.Satisfied by Contributor_system, [id number] Diabetes Nephropathy Management on12/12/22.Satisfied by Contributor_system, [email or web address] Lipid Screening on12/12/22.Satisfied by Contributor_system, [id number] Electronic Signature on File Electronically Reviewed/Signed by: Bailee Colon MD Author Signature Dt/Tm:06/12/2023 08:21 AM Department of Family Medicine [facility] Patient Care team information Care Team Personnel Name: SHREYA Green Lynn Position: Physician Hotel Recreational Facilities Manager Exempt - Vas Surg Member Role: Lifetime Relationship Address: Address: [address] [place] [address] Name: MD Isaiah, Bailee Bailey Position: Physician Member Role: Primary Care Provider Address: Address: [address] [place] [address] Name: Virginia Maddox Kyle Position: Pharmacist Member Role: Pharmacy - Lifetime Address: Address: [address] [place] [id number] [place] Care Team Related Persons Name: GUNNAR MTZ Address: home [address] [place] [phone] Name: NALINI MTZ Name: JOSS MTZ Name: JOSS MTZ Address: home No Address Provided"
--- OUTSIDE RECORDS SUMMARY | 2023-09-14 00:39 | External Medical Summary | Summary of Care ---
Author Name Unknown Organization [facility] Address [address] [place] [address] Phone [phone] Care Team Providers Care Tree Deadener Name Role Phone Leoncio Valladares MD Primary Care Provider Encounter Details Date Type Department Care Team (Late st Contact Info) Description 06/06/2023 Result Scan Unspecified Department <No scans attached> Allergies No known active allergiesdocumented as of this encounter (statuses as of 06/19/2023) Medications Medication Sig Dispensed Refills Start Date [...] as of this encounter (statuses as of 06/19/2023) Active Problems Problem Noted Date Diagnosed Date Elevated prostate specific antigen (PSA) 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 Dermatitis 04/03/2006 documented as of this encounter (statuses as of 06/19/2023) Social History Tobacco Use Types Packs/Day Years [...] 06/26/2023 9:00 AM EDT Nurse Only Urology, [facility] [address] [place] [address] Long Nurse Urology Joan [address] [place] [address] 06/27/2023 2:10 PM EDT Hospital Encounter OR [facility], Operating Room [facility] [address] [place] [phone] Robin Linares, [address] [place] [address] 06/27/2023 2:10 PM EDT - 06/27/2023 2:35 PM EDT Surgery OR [facility], Operating Room [facility] [address] [place] [phone] Robin Linares, [address] [place] [phone] INJECTION SACROILIAC JOINT 10/14/2023 8:15 AM EDT Office Visit Urology, [facility] [address] [place] [address] Berny Wakefield MD [address] [place] [address] Scheduled Procedures Name Priority Associated Diagnoses Date/Ti me INJECTION SACROILIAC JOINT Inflammation of sacroiliac joint (HCC) 06/27/2023 2:10 PM EDT Health Maintenance Due Date Last Done Comments Depression Screening 1952 DTaP,Tdap,and Td Vaccines (1 - Tdap) 09/03/1959 Zoster Vaccines (1 of 2) 1990 COVID-19 Vaccine (2022- season) 2022 04/05/2021, 11/08/2020, 06/08/2020, Additional history [...] Not on filedocumented as of this encounter Procedures Procedure Name Priority Date/Time Associated Diagnosis Comments OUTSIDE LAB RESULTS 06/06/2023 documented in this encounter Results * OUTSIDE LAB RESULTS (06/06/2023) 06/06/2023 No Physician Data Unknown LABORATORY documented in this encounter Care Teams Tree Deadener Relationship Specialty Start Date End Date Leoncio Valladares MD [address] [facility] [address] [place] [address] PCP - General 04/06/99 documented as of this encounter
--- OUTSIDE RECORDS SUMMARY | 2023-09-14 00:39 | External Medical Summary | Summary of Care ---
Author Name Unknown Organization [facility] Address [address] [place] [address] Phone [phone] Care Team Providers Care Engineering Officer Name Role Phone Bailee Colon MD Primary Care Provi caroline Reason for Visit * Reason Onset Date Comments Precert Not Needed 06/18/2023 Appointment 06/18/2023 Encounter Details Date Type Department Care Team (Late st Contact Info) Description 06/18/2023 Telephone Urology, [facility] 132 [facility] [place] [address] Berny Wakefield MD 27 [facility] [place] [address] Precert Not Needed; Appointment Allergies No known active allergiesdocumented as of this encounter (statuses as of 07/04/2023) Medications Medication Sig Dispensed Refills Start Date [...] 0 06/29/2023 Discontinued (Medication List Clean Up) Hospital, Clinic, or Other Facility Administered Medication Ordered Dose Route Frequency Start Date End Date Status Leuprolide Acetate (3 Month) (Lupron) inj 22.5 mgIndications:Prostate cancer (HCC) 22.5 mg IM ONCE 06/18/2023 06/18/2023 Ended documented as of this encounter (statuses as of 07/04/2023) Active Problems Problem Noted Date Diagnosed Date Elevated prostate specific antigen (PSA) 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 MUST be on a day that Dr Wakefield is in clinic. Thank you Simi * Telephone Encounter - Glenna Fitzgerald OSA - 07/04/2023 8:56 AM EDT Pt called back to inquiry about the approval for Lupron and would like to schedule her husbandfor the injection. She can be reached at [phone], ty! * Telephone Encounter - Gilma Romero OSA - 06/18/2023 8:55 AM EDT See referral message * Telephone Encounter - An Harvey LPN - 06/18/2023 8:38 AM EDT Urology Pre-Cert Request Medication/Disease State Information: Medication: Leuprolide Acetate - J Lupron [place] 3 month - IM 11.25 mg every 3 months for 1 dose(s) [place] p [address] Diagnosis (including ICD-10): Prostate Cancer- C61 Medication(s) Tried/Failed/Contraindicated: n/a See corresponding visit note(s) for additional supporting clinical information. Office Information: Prescriber: Berny Wakefield MD documented in this encounter Plan of Treatment Upcoming Encounters Date Type Department Care Team (Late st Contact Info) Description 08/30/2023 9:00 AM EDT Office Visit Interventional Pain Center, [facility] [address] [place] [address] Luci Sweet PA-C [address] [place] [address] 10/14/2023 8:15 AM EDT Office Visit Urology, [facility] [address] [place] [address] Berny Wakefield MD [address] [place] [address] Health Maintenance Due Date Last Done Comments [...] filedocumented as of this encounter Care Teams Engineering Officer Relationship Specialty Start Date End Date Bailee Colon MD [address] [place], [place] [address] PCP - General Family Medicine 06/27/23 documented as of this encounter
--- OUTSIDE RECORDS SUMMARY | 2023-09-14 00:39 | External Medical Summary | Summary of Care ---
Author Name Unknown Organization [facility] Address [address] [place] [address] Phone [phone] Care Team Providers Care Cab Starter Name Role Phone Bailee Colon MD Primary Care Provi caroline Reason for Visit * Reason Onset Date Comments Precert Not Needed 06/18/2023 Appointment 06/18/2023 Encounter Details Date Type Department Care Team (Late st Contact Info) Description 06/18/2023 Telephone Urology, [facility] 132 [facility] [place] [address] Berny Wakefield MD 27 [facility] 270 [facility] [address] Precert Not Needed; Appointment Allergies [...] encounter Miscellaneous Notes * Telephone Encounter - Mae Jaime OSA - 07/04/2023 9:48 AM EDT Scheduled on 07/10/2023. * Telephone Encounter - Mae Jaime OSA - 07/04/2023 9:48 AM EDT Urology Pre-Cert Request Medication/Disease State Information: Medication: Leuprolide Acetate - J Lupron Depot 3 month - IM 11.25 mg every 3 months for 1 dose([place] [address] Diagnosis (including ICD-10): Prostate Cancer- C61 Medication(s) Tried/Failed/Contraindicated: n/a See corresponding visit note(s) for additional supporting clinical information. Office Information: Prescriber: Berny Wakefield MD * Telephone Encounter - An Harvey LPN [...] the injection. She can be reached at [phone], ty! * Telephone Encounter - Gilma Romero OSA - 06/18/2023 8:55 AM EDT See referral message * Telephone Encounter - An Harvey LPN - 06/18/2023 8:38 AM EDT Urology Pre-Cert Request Medication/Disease State Information: Medication: Leuprolide Acetate - J Lupron Depot 3 month - IM 11.25 mg every 3 months for 1 dose(s) [place] p [address] Diagnosis (including ICD-10): Prostate Cancer- C61 Medication(s) Tried/Failed/Contraindicated: n/a See corresponding visit note(s) for additional supporting clinical information. Office Information: Prescriber: Berny aWkefield MD documented in this encounter Plan of Treatment Upcoming Encounters Date Type Department Care Team (Late st Contact Info) Description 07/10/2023 9:00 AM EDT Nurse Only Urology, [facility] [place] [address] [facility] Nurse Urology [facility] [address] [place] [address] 08/30/2023 9:00 AM EDT Office Visit Interventional Pain Center, [facility] [place] [address] Luci Sweet PA-C [address] [place] [address] 10/14/2023 8:15 AM EDT Office Visit Urology, [facility] 132 [facility] [place] [address] Berny Wakefield MD [address] [place] [address] [address] [place] [address] Health Maintenance Due Date Last Done Comments Depression Screening 1952 DTaP,Tdap,and Td Vaccines (1 - Tdap) 09/03/1959 Zoster Vaccines (1 of 2) 1990 COVID-19 Vaccine ( - 2022-24 season) 2022 04/05/2021, 11/08/2020, 06/08/2020, [...] filedocumented as of this encounter Care Teams Cab Starter Relationship Specialty Start Date End Date Bailee Colon MD 6 [facility] [address] [place] [address] PCP - General Family Medicine 06/27/23 documented as of this encounter
--- OUTSIDE RECORDS SUMMARY | 2023-09-14 00:39 | External Medical Summary | Summary of Care ---
Author Name [facility] [address] [place] [address] Phone [phone] Care Team Providers Care Scientific Systems Analyst Name Role Phone Bailee Colon MD Primary Care Provi caroline Encounter Details Date Type Department Care Team (Latest Contact Info) Description 06/29/2023 [facility] [address] [place] [address] [facility] [address] [place] [address] Referred for management of medication therapy* Allergies No known active allergiesdocumented as of this encounter (statuses as of 06/29/2023) Medications Medication Sig Dispensed Refills Start Date [...] as of this encounter (statuses as of 06/29/2023) Active Problems Problem Noted Date Diagnosed Date Elevated prostate specific antigen (PSA) 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 Dermatitis 04/03/2006 documented as of this encounter (statuses as of 06/29/2023) Social History Tobacco Use Types Packs/Day Years Used Date Smoking Tobacco: Never Smokeless Tobacco: Never Sex and Gender Information Value Date Recorded Sex Assigned at Not on file Gender Identity Not on file Sexual Orientation Not on file Job Start Date Occupation Industry Not on file Not on file Not on file documented as of this encounter Progress Notes * Diane Shoemaker RP - 06/29/2023 11:32 AM EDT Luís Murray [...] beneficiary Language Template for the Patient Takeaway: Latvian I attest that I have reviewed and [...] day with morning andevening meals. Diabetes Berny aWkefield MD Metoprolol Tartrate 50 MG Oral Tablet [...] AM EDT Office Visit Interventional Pain Center, [facility] [address] [place] [address] Luci Sweet PA-C 132 [facility] [place] [address] 10/14/2023 8:15 AM EDT Office Visit Urology, [facility] 132 [facility] [place] [address] Berny Wakefield MD 27 [facility] [address] [place] [address] Health Maintenance Due Date Last Done Comments [...] medications documented in this encounter Care Teams Scientific Systems Analyst Relationship Specialty Start Date End Date Bailee Colon MD 6 [facility] [address] [place] [address] PCP - General Family Medicine 06/27/23 documented as of this encounter
--- OUTSIDE RECORDS SUMMARY | 2023-09-14 00:39 | External Medical Summary | Summary of Care ---
Author Name Unknown Organization [facility] Address [address] [place] [address] Phone [phone] Care Team Providers Care Electrical Designer Name Role Phone Bailee Colon MD Primary Care Provi caroline Reason for Visit * Precert (Within 30 days (routine)) - Authorized Specialty Diagnoses / Procedures Referred By Alisha t Referred To Contact Urology Diagnoses Malignant neoplasm of prostate (HCC) Procedures NV LEUPROLIDE ACETATE SUSPNSION Berny Wakefield MD [address] [place] [phone] Berny Wakefield MD [address] [place] [id number] Referral ID Status Reason Start Date Expiration Date V isits Requested Visits Authorized [id number] Authorized Precert 06/18/2023 03/31/[phone] Encounter Details Date Type Department Care Team (Late st Contact Info) Description 07/10/2023 9:00 AM EDT [facility] [address] [place] [address] Long Nurse Urology [facility] [address] [place] [address] Allergies No known active allergiesdocumented as of this encounter (statuses as of 07/10/2023) Medications Medication Sig Dispensed Refills Start Date [...] mgIndications:Prostate cancer (HCC) 22.5 mg IM ONCE 07/10/2023 07/10/2023 Ended documented as of this encounter (statuses as of 07/10/2023) Active Problems Problem Noted Date Diagnosed Date Elevated prostate specific antigen (PSA) 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 Dermatitis 04/03/2006 documented as of this encounter (statuses as of 07/10/2023) Social History Tobacco Use Types Packs/Day Years [...] AM EDT Office Visit [facility], [facility] [address] [place] [address] Luci Sweet PA-C [address] [place] [address] 10/14/2023 8:15 AM EDT Office Visit Urology, [facility] [address] [place] [address] Berny Wakefield MD [address] [place] [address] [place] [address] Health Maintenance Due [...] cancer (HCC)- Primary Malignant neoplasm of prostate Elevated prostate specific antigen (PSA) documented in this encounter Administered Medications Inactive Administered Medications - up to 3 most recent administrations Medication Order MAR Action Action Date Dose Rate Site Leuprolide Acetate (3 Month) (Lupron) inj 22.5 mg 22.5 mg, Intramuscular, ONCE, On Sat07/10/23 at 1015, For 1 dose Given 07/10/2023 10:50 AM EDT 22.5 mg Ventrogluteal Left documented in this encounter Care Teams Electrical Designer Relationship Specialty Start Date End Date Bailee Colon MD 6 [facility] [address] [place] [address] PCP - General Family Medicine 06/27/23 documented as of this encounter
--- OUTSIDE RECORDS SUMMARY | 2023-09-14 00:39 | External Medical Summary | Continuity of Care Document ---
Author Name Unknown Organization [facility] [address] Address [address] [place], [place] [id number] Care Team Providers Care Meal Cooker Name Role Phone Bailee Colon Primary Care Physician [phone] [id number] Date[facility]s): 06/26/23 - 06/26/23 [facility] [address] [employer] [facility] [employer] [facility] [address] [place], [place] [phone] Encounter Diagnosis Type 2 diabetes mellitus with diabetic neuropathy, unspecified(Final) - Discharge Disposition: Home or Self Care Attending Physician: MD Colon Ravishankar E Referring Physician: MD Colon Ravishankar E Allergies, Adverse Reactions, Alerts Substance Reaction Severity Status ciprofloxacin Dysequilbrium Active Immunizations Given and Recorded Vaccine Date Status [...] q6h, Disp# 8.5 g, Refills: 3, Pharmacy: [facility]/pharmacy#[id number] Start Date: 05/02/21 Status: Ordered dutasteride 0.5 mg oral capsule Start: 07/20/20 11:13:00 EDT, 1 cap, PO, Daily, Disp# 30 cap, Refills: 3, Pharmacy: [facility]/pharmacy #[id number] Start Date: 07/20/20 Status: Ordered Eliquis 5 mg oral tablet Start: 03/01/23 9:38:00 EST, 1 tab, PO, bid, Disp# 60 tab, Refills: 11, Pharmacy: [id number] Start Date: 03/01/23 Status: Ordered Entresto 24 mg-26 mg oral tablet Start: 04/25/23 11:47:00 EST, 1 tab, PO, bid, Disp# 60 tab, Refills: 11, Pharmacy: [facility]/pharmacy #[id number] Start Date: 04/25/23 Status: Ordered Flexeril 5 mg oral tablet Start: 06/25/23 10:35:00 EDT, 1 tab, PO, qhs, Disp# 30 tab, Refills: 0, PRN: as needed for spasm, Pharmacy: [facility]/pharmacy #[id number] Start Date: 06/25/23 Status: Ordered Flomax 0.4 mg oral capsule Start: 11/15/20 8:06:00 EDT, 1 cap, PO, qAM, Disp# 90 cap, Refills: 3, Pharmacy: [facility]/pharmacy #[id number] Start Date: 11/15/20 Status: Ordered Flonase 50 mcg/inh nasal spray Start: 03/27/23 12:45:00 EST, 1 spray, each nostril, Daily, Disp# 16 g, Refills: 3, Pharmacy: [facility]/pharmacy #[id number] Start Date: 03/27/23 Status: Ordered furosemide 20 mg oral tablet Start: 12/26/21 8:58:00 EDT, See Instructions, Disp# 90 tab, Refills: 4, as needed for weight gain 2 lbs in 24 hours or 5 lbs in a week, Pharmacy: [facility] [id number] Start Date: 12/26/21 Status: Ordered inhaler spacer Start: 10/14/20 11:17:00 EDT, See Instructions, Disp# 1 each, dispense 1, Pharmacy: [facility]/pharmacy #[id number] Start Date: 10/14/20 Status: Ordered meclizine 25 mg oral tablet Start: 02/18/23 14:48:00 EST, See Instructions, Disp# 15 tab, Refills: 1, 1 tab PO daily PRN dizziness, PRN: as needed for dizziness, Pharmacy: [facility]/pharmacy #[id number] Start Date: 02/18/23 Status: Ordered metFORMIN 500 mg oral tablet Start: 06/03/23 9:33:00 EST, See Instructions, Disp# 360 tab, Refills: 1, TAKE 2 TABLETS BY MOUTH WITH NOON MEAL AND WITH EVENING MEAL, Pharmacy: [id number] Start Date: 06/03/23 Status: Ordered metoprolol succinate 25 mg oral tablet, extended release Start: 03/04/23 10:46:00 EST, 1.5 tab, PO, Daily, Disp# 135 tab, Refills: 3, [id number] Start Date: 03/04/23 Status: Ordered multivitamin Start: 07/27/21 8:00:00 EDT, 1 tab, PO, Daily Start Date: 07/27/21 Status: Ordered One Touch Finepoint (25G) Lancets Start: 06/26/17 8:54:00, See Instructions, Disp# 1 box, Refills: 6, test daily, Dx : E11.9, Pharmacy: [facility]/pharmacy #[id number] Start Date: 06/26/17 Status: Ordered One Touch Ultra Test Strips 100 ct Start: 10/27/19 16:37:00 EDT, See Instructions, Disp# 100 each, Refills: 6, test daily, Dx: E11.9, Pharmacy: [facility]/pharmacy #[id number], 166.8, cm, 08/25/19 11:30:00 EDT, Height, 120.6, kg, 04/30/19 11:15:00EST, Weight Start Date: 10/27/19 Status: Ordered One Touch UltraMini Glucose Monitor Start: 06/26/17 8:52:00, See Instructions, Disp# 1 unit, Refills: 0, test daily, Dx : E11.9, Pharmacy: [facility]/pharmacy #[id number] Start Date: 06/26/17 Status: Ordered pravastatin 20 mg oral tablet Start: 08/28/22 17:41:00 EDT, See Instructions, Disp# 90 tab, Refills: 3, TAKE 1 TABLET BY MOUTH EVERYDAY AT BEDTIME, Pharmacy: [id number] Start Date: 08/28/22 Status: Ordered Tradjenta 5 mg oral tablet Start: 08/29/22 8:05:00 EDT, See Instructions, Disp# 90 tab, Refills: 3, TAKE 1 TABLET BY MOUTH EVERY DAY, [id number] Start Date: 08/29/22 Status: Ordered traMADol 50 mg oral tablet Start: 06/25/23 10:35:00 EDT, See Instructions, Disp# 120 tab, Refills: 0, 1-2 tab PO q6h for pain not to exceed 400 mg/day, Note to Pharmacy: PDMP verified,, PRN: as needed for pain, Pharmacy: [id number] Start Date: 06/25/23 Status: Ordered Vitamin D3 Start: 07/27/21 8:00:00 EDT Start Date: 07/27/21 Status: Ordered Problem List Condition Confirmation Course Effective Dates [...] deficiency Confirmed Active Weight disorder Confirmed Active Procedures Procedure Date Related Diagnosis Body Site [...] residual of 634cc 4L with patient-matched implant Results Laboratory List Name Date Hemoglobin A1C (HEMOGLOBIN, A1C) 06/26/23 Most recent to oldest [Reference Range]: 1 Estimated Average Glucose 131 mg/dL (06/26/23 7:44 AM) HbA1c [<5.7 %] 6.2 % 1 *HI* (06/26/23 7:44 AM) 1Result Comment: ADA Recommended [place] Reference Range: Normal: <5.7% Prediabetes: 5.7-6.4% Diabetes: >6.4% Social History Social History Type Response Smoking Status Never smoked cigaret lisandra Sex Male Patient Care team information Care Team Personnel Name: SHREYA Green Lynn Position: Physician [employer] Maker Exempt - Vasc Surg Member Role: Lifetime Relationship Address: Address: [address] [place] [address] [address] [place] [address] [place] Name: MD Isaiah, Bailee Bailey Position: Physician Member Role: Primary Care Provider Address: Address: [address] [facility] [address] [place] [address] [place] Name: Virginia Maddox Kyle Position: Pharmacist Member Role: Pharmacy - Lifetime Address: Address: [address] [place] [id number] Care Team Related Persons Name: GUNNAR MTZ Address: home [address] [place] [id number] Name: NALINI MTZ Name: JOSS MTZ Name: JOSS MTZ Address: home No Address Provided
--- OUTSIDE RECORDS SUMMARY | 2023-09-14 00:39 | External Medical Summary | Summary of Care ---
Author Name Unknown Organization [facility] Address [address] [place] [address] Phone [phone] Care Team Providers Care Hearing Therapy Director Name Role Phone Bailee Colon MD Primary Care Provi caroline Reason for Visit * Reason Onset Date Comments Precert Not Needed 06/18/2023 Appointment 06/18/2023 Encounter Details Date Type Department Care Team (Late st Contact Info) Description 06/18/2023 Telephone Urology, [facility] [address] [facility] [place] [address] Berny Wakefield MD [address] [facility] [address] [facility] [address] Precert Not Needed; Appointment [...] encounter Miscellaneous Notes * Telephone Encounter - Glenna Fitzgerald OSA - 07/04/2023 8:56 AM EDT Pt called back to inquiry about the approval for Lupron and would like to schedule her husbandfor the injection. She can be reached at [phone], ty! * Telephone Encounter - Gilma Romero OSA - 06/18/2023 8:55 AM EDT See referral message * Telephone Encounter - An Harvey LPN - 06/18/2023 8:38 AM EDT Urology Pre-Cert Request Medication/Disease State Information: Medication: Leuprolide Acetate - J Lupron [place] 3 month - IM 11.25 mg every 3 months for 1 dose(s) [place] to p [id number] Diagnosis (including ICD-10): Prostate Cancer- C61 Medication(s) Tried/Failed/Contraindicated: n/a See corresponding visit note(s) for additional supporting clinical information. Office Information: Prescriber: Berny Wakefield MD documented in this encounter Plan of Treatment Upcoming Encounters Date Type Department Care Team (Late st Contact Info) Description 08/30/2023 9:00 AM EDT Office Visit Interventional [facility] Center, [facility] [address] [place] [address] Luci Sweet PA-C [address] [place] [address] 10/14/2023 8:15 AM EDT Office Visit Urology, [facility] [address] [place] [address] Berny Wakefield MD [address] [place] [address] [place] [address] Health Maintenance Due Date [...] filedocumented as of this encounter Care Teams Hearing Therapy Director Relationship Specialty Start Date End Date Bailee Colon MD [address] [place] [address] [address] PCP - General Family Medicine 06/27/23 documented as of this encounter
--- OUTSIDE RECORDS SUMMARY | 2023-09-14 00:39 | External Medical Summary | Summary of Care ---
Author Name Unknown Organization [facility] Address [address] [place] [address] Phone [phone] Care Team Providers Care Quality Process Engineer Name Role Phone Bailee Colon MD Primary Care Provi caroline Reason for Visit * Auth/Cert Specialty Diagnoses / Procedures Referred By Alisha t Referred To Contact Diagnoses Inflammation of sacroiliac joint (HCC) Inflammation of sacroiliac joint (HCC) [M46.1] Procedures SACROILIAC JOINT INJECT W/GUIDANCE INJECTION SACROILIAC JOINT Robin Linares DO [address] [place] [address] Or [facility] [address] [place] [address] Referral ID Status Reason Start Date Expiration Date Visits Re quested Visits Authorized [id number] Encounter Details Date Type Department Care Team (Latest Contact Info) Description 06/27/2023 1:34 PM EDT - 06/27/2023 2:38 PM EDT Hospital Encounter OR [facility], Operating Room [facility] [address] [place] [address] Robin Linares DO [address] [place] [address] Discharge Disposition: Home - Self Care Allergies No known active allergiesdocumented as of this encounter (statuses as of 06/28/2023) Medications Medication Sig Dispensed Refills Start Date [...] as of this encounter (statuses as of 06/28/2023) Active Problems Problem Noted Date Diagnosed Date Elevated prostate specific antigen (PSA) 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 Dermatitis 04/03/2006 documented as of this encounter (statuses as of 06/28/2023) Social History Tobacco Use Types Packs/Day Years Used Date Smoking Tobacco: Never Smokeless Tobacco: Never Sex and Gender Information Value Date Recorded Sex Assigned at Not on file Gender Identity Not on file Sexual Orientation Not on file Job Start Date Occupation Industry Not on file Not on file Not on file documented as of this encounter Last Filed Vital Signs Vital Sign Reading Time Taken Comments Blood Pressure 139/73 06/27/2023 2:31 PM EDT Pulse 91 06/27/2023 2:31 PM EDT Temperature 35.8 C (96.5 F) 06/27/2023 1:50 PM ED T Respiratory Rate 18 06/27/2023 2:31 PM EDT Oxygen Saturation 96% 06/27/2023 2:31 PM EDT Inhaled Oxygen Concentration - - Weight 103.4 kg (228 lb) 06/27/2023 1:50 PM EDT Height 165.1 cm (5' 5") 06/27/2023 1:50 PM EDT Body Mass Index 37.94 06/27/2023 1:50 PM EDT documented in this encounter Discharge Instructions * Discharge Instr - AVS* Robin Linares DO - 06/27/2023 2:30 PM EDT [facility] [address] [place] [address] Discharge Date: 06/27/2023 You may call [facility] at [phone] during business hours. For after-hours emergencies call [phone]. Your attending physician at the time of your discharge was: Robin Linares DO [address] [place] [address] The information below provides you with the instructions and the list of medications you need to betaking following discharge from the hospital. If you have any questions, please ask before leaving.Please carry this letter with you when you see your doctor in the clinic. Diet: Resume your normal diet If you are diabetic, follow your blood sugars closely for next 2-3 days as they are likely to be elevated. If you are having difficulty controlling your blood sugars call your family doctor or the physician that treats your diabetes. Activity: Do not engage in strenuous activity today Resume your normal activities tomorrow Do not soak in water for 24 hours. No swimming, hot tub or bath but showering is allowed. Do not use heat on the injection site for 24 hours. If uncomfortable ice may be helpful. Some injections may make your arms or legs weak for a few hours. Be extremely careful when walking or changing positions that you do not fall. Have someone assist you for the next 6 hours. If weakness or numbness becomes progressive CALL IMMEDIATELY or GO TO THE NEAREST EMERGENCY ROOM Keep a diary of your pain until seen in the office to help us determine how effective the injectionwas Do not restart physical therapy or chiropractic manipulation until 48 hours after your injection Call : If weakness or numbness suddenly becomes worse or become progressive If the injection site becomes red, swollen, warm to the touch, begins to bleed or drain fluid, or is excessively painful. If you have any questions Medications: Resume all the medications you were taking prior to your injection. Resume your anticoagulants tomorrow unless otherwise instructed by your family physician, dining room captain or the anticoagulation clinic. Additional Instructions: Please monitor for symptoms of high blood sugar such as frequent urination, flu-like symptoms and changes in your vision as well as blood sugar values >250mg/dL. If these occur, please report to your PCP and/or UrgentCare or the Emergency Department immediately. Driving: You may resume driving in 12-24 hours if no weakness is noted . Date you may return to work or school: N/A Follow Up: Follow-up with Dr. Linares or Luci Sweet PA-C in 6-8 weeks via telehealth or in- person appointment per your preference. documented in this encounter Progress Notes * Robin Linares DO - 06/27/2023 2:30 PM EDT [facility] [place] [address] [place] [address] OUTPATIENT SURGERY DISCHARGE SUMMARY NOTE Name: Luís Murray Location: OR [facility]/OR Date: 06/27/2023 Time: 2:30 PM Surgery Date: 06/27/2023 Procedure: INJECTION SACROILIAC JOINT Bilateral Surgeon: Robin Linares DO Discharge Diagnosis: bilateral SIJ chronic pain After examination of this patient, I have determined he is ready for discharge to home when the patient meets criteria. Discharge instructions were given to the patient. Robin Linares DO OR [facility], Operating Room [facility] [address] [place] [address] . documented in this encounter H&P Notes * Robin Linares DO - 06/27/2023 2:05 PM EDT Interventional Pain H&P Subjective: History of Present Illness: Luís Murray is a 82 year old year-old male with a past medical history significant for chronic SIJ pain who is presenting for bilateral SIJ corticosteroid injection to improve his pain and function. his pain is essentially unchanged since our last office visit with him . ASA 3 AW nml Review of Systems: A focused 12-pt ROS were of reviewed with the patient including difficulty with sleep, snoring, aspiration history, dysphagia, stomach pain, nausea and vomiting, severe headaches, confusion, open skin lesions or wounds, chest pain, shortness of breath, excessive thirst, somnolence, dysuria, incomplete bladder emptying, easy bruising, recent clotting problems or bleeding, depression or rushed thoughts unless noted previously. Review of patient's allergies indicates: No Known Allergies Medications, Past Medical History, Past Surgical History reviewed and documented in Epic. See detailed report if needed. Pertinent Labs/Test Results: No results found for: "INR" No results found for: "CREATININE" HEMOGLOBIN, [id number] LAB (no units) Date Value 09/16/2020 6.3 (H) No results found for: "AMPHETAMINE", "BARBITURATES", "BENZODIAZEPINES", "BUPRENORPHINE", "METHADONE", "OPIATES", "OXYCODONE", "PHENCYCLIDINE", "CANNABINOIDS", "TOX SCREEN", "URINE", "TOX SCREEN-SERUM", "TOX SCREEN, URINE" Imaging: I personally reviewed the imaging and my findings were . NM BONE SCAN WHOLEBODY Narrative: EXAM NM BONE SCAN WHOLEBODY - 12/08/2021 3:11 pm HISTORY prostate cancer COMPARISON CT abdomen/pelvis dated 11/15/2021. TECHNIQUE Following the intravenous administration of 20.5 mCi of Tc-99m methylene diphosphonate (MDP), wholebody anterior and posterior scintigrams were obtained. Spot images of the chest and pelvis were also obtained. FINDINGS No suspicious osseous uptake. Degenerative pattern of uptake is seen in the spine and shoulders. There is photopenia associated with bilateral knee arthroplasties. The soft tissues are within normal limits. Expected renal parenchymal uptake and excretion into theurinary collecting system. Impression: IMPRESSION No suspicious osseous uptake. I have personally reviewed this examination and agree with the resident/fellow physician's interpretation. Objective Physical Exam: Vital Signs: BP 136/73 | Pulse 91 | Temp 35.8 C (96.5 F) (Tympanic) | Resp 19 | Ht 1.651 m (5' 5") | Wt 103.4 kg (228 lb) | SpO2 92% | BMI 37.94 kg/m | BSA 2.18 m Body mass index is 37.94 kg/m. General: No apparent distress. Eyes: pupils equal and round, sclera white, pupils midsize. ENT: mucous membranes moist Resp: Non-labored breathing CV: Extremities warm and well-perfused. Psych: Oriented; affect warm, insight good. Skin: No rashes or lesions appreciated on exposed skin Neuromuscular Exam: Facet loading neg, SLR neg, TTT over bilateral SIj Assessment: Luís is a 82 year old year-old male with: Chronic SIJ pain, bilateral. Osteoarthritis of both SIJs Plan: The patient is undergoing bilateral SIJ corticosteroid injections today to alleviate his pain and improve his function. The risks, benefits and alternatives to the procedure were reviewed at length and the patient was provided the opportunity to ask questions which were answered to their voiced understanding. Following this comprehensive discussion, the patient opted to proceed. The patient was consented to the procedure following this comprehensive conversation. Robin Linares DO OR [facility], Operating Room [address] [address] documented in this encounter Nursing Notes * Ying Thayer RN - 06/27/2023 2:33 PM EDT Patient tolerated pain injection well. Ready for discharge to home. * Shana Bailey RN - 06/27/2023 2:24 PM EDT Patient tolerating procedure without complications. documented in this encounter OR Notes * OR Surgeon - Robin Linares DO - 06/27/2023 2:28 PM EDT SI JOINT INJECTION DATE: 06/27/2023 PHYSICIAN: Robin Linares DO PREOPERATIVE DIAGNOSIS: Bilateral Sacroiliac Joint Pain Bilateral degenerative sacroiliitis. POSTOPERATIVE DIAGNOSIS: Bilateral Sacroiliac Joint Pain Bilateral degenerative sacroiliitis. PROCEDURE PERFORMED: Sacroiliac joint injection with a corticosteroid and a local anesthetic, bilateral. Fluoroscopy for precise needle placement. There was no assistant foreman, EBL or drains placed during this procedure. ANESTHESIA: Local infiltration with 1% lidocaine. MONITORS: Automatic blood pressure cuff, pulse oximetry readily available INDICATIONS: We had the pleasure of seeing Luís Murray at the [facility] today. Luís Murray ([id number]) is a 82 year old year-old male with a history of bilateral sacroiliac joint pain and bilateral degenerative sacroiliitis. The patient is here today for a sacroiliac joint injection. MEDICATIONS: Outpatient Medications Marked as Taking for the 06/27/23 encounter (Hospital Encounter) Medication Sig Dutasteride 0.5 MG Oral Capsule (Avodart) Take 1 Capsule by mouth in the morning. Entresto 24-26 MG Oral Tablet Take 1 Tablet by mouth in the morning and 1 Tablet before bedtime. Tamsulosin HCl 0.4 MG Oral Capsule (Flomax) Take 1 Capsule by mouth in the morning. Apixaban 5 MG Oral Tablet Take 1 Tablet by mouth in the morning and 1 Tablet before bedtime. Furosemide 20 MG Oral Tablet (Lasix) Take 1 Tablet by mouth in the morning. linaGLIPtin 5 MG Oral Tablet (Tradjenta) Take 1 Tablet by mouth in the morning. metFORMIN HCl 500 MG Oral Tablet (Glucophage) Take 1 Tablet by mouth 2 times a day with morning andevening meals. Metoprolol Tartrate 50 MG Oral Tablet (Lopressor) Take 1 Tablet by mouth in the morning and 1 Tablet before bedtime. Pravastatin Sodium 20 MG Oral Tablet (Pravachol) Take 1 Tablet by mouth in the morning. traMADol HCl 50 MG Oral Tablet (Ultram) Take 1 Tablet by mouth every 6 hours as needed. ALLERGIES: Review of patient's allergies indicates: No Known Allergies REVIEW OF SYSTEMS: Negative for fever, chills, chest pain, SOB, bleeding abnormalities, nausea, vomiting, diarrhea, worsening edema, or new rashes. FOCUSED PHYSICAL EXAMINATION: The patient is awake, alert and oriented, and is in no acute distress. Vital signs are stable. The patient is afebrile. The rest of the PE is essentially unchanged from the patient's recent visit to our office. I explained the procedure to the patient including the risks, benefits and alternatives to the procedure. The risks discussed with the patient included but were not limited to: bleeding, infection, and damage to surrounding nerves, tissues, and organs, paralysis, increased pain, allergic reaction, blood pressure instability, seizures, heart block, headaches, increase in blood sugar, worsening of glaucoma, blindness, manic episodes, mood instability, and . Alternatives to the procedure werealso explained and include: do nothing, surgery, medications, and physical therapy. The patient verbalized understanding and was willing to proceed. PROCEDURE IN DETAIL: An informed consent was obtained. The patient was taken to the procedure room where the patient was positively identified by the staff and the attending physician. The patient was positioned prone on the bed. The patient's vital signs were monitored as above and remained stablethroughout the procedure. A fluoroscopic view of the right SI joint was obtained. The skin was prepped and draped in the standard sterile fashion. A surgical pause (time-out) was performed and was agreed upon by the members of the team. The skin and subcutaneous tissues were infiltrated with 1% lidocaine using a 25-gauge 1.5- inch needle. A 22-gauge, 3.-inch spinal needle was advanced into the inferior portion of the right SI joint. The position of the needle was verified in AP and lateral viewsand by injecting Omniplaque dye, 180 mg/ml, which showed excellent intraarticular spread. After negative aspiration for the CSF or blood, 2mL of a mixture containing 60 mg of triamcinolone mixed with2.5 mL of 1% lidocaine was injected. The needle was withdrawn. The procedure was repeated in the same fashion on the contralateral side. The patient tolerated the procedure well. The patient was transferred in stable condition to the recovery room. COMPLICATIONS: None DISPOSITION: 1. Return to clinic in 1-2 months for follow-up evaluation, sooner as needed. 2. Resume activity as tolerated. 3. Patient can drive after 12-24 hours if no weakness noted. Robin Linares DO [place] [facility], Operating [facility] [address] [place] [place] [address] documented in this encounter Plan of Treatment Upcoming Encounters Date Type Department Care Team (Late st Contact Info) Description 08/30/2023 9:00 AM EDT Office Visit [facility] [address] [facility] [place] [address] Luci Sweet PA-C [address] [place] [address] 10/14/2023 8:15 AM EDT Office Visit Urology, [facility] [address] [place] [address] Berny Wakefield MD [address] [facility] [address] [place] [address] Health Maintenance Due [...] Procedure Name Priority Date/Time Associated Diagnosis Comments FLUORO INTERVENTIONAL PAIN PROCEDURE NONBILLABLE Routine 06/27/2023 2:34 PM EDT documented in this encounter Results * FLUORO INTERVENTIONAL PAIN PROCEDURE NONBILLABLE (06/27/2023 2:34 PM EDT) Narrative Scheduling, Silent - 06/27/2023 2:35 PM EDT This procedure will not be read by a Radiologist. Please see operative note. Robin Neptali Milagros ELIZONDO FLUOROSCOPY documented in this encounter Administered Medications Inactive Administered Medications - up to 3 most recent administrations Medication Order MAR Action Action Date Dose Rate Site Iohexol (Omnipaque 180) inj 1 mL 1 mL, Injection, ONCE, On Davina 06/27/23 at 1430, For 1 dose Given 06/27/2023 2:23 PM EDT 1 mL lidocaine 1 % inj 30 mg 30 mg (3 mL), Subcutaneous, ONCE, On Davina 06/27/23 at 1430, For 1 dose Given 06/27/2023 2:22 PM EDT 30 mg O ther-Specify Triamcinolone Acetonide (Kenalog) 40 MG/ML inj 60 mg 60 mg, Intra-Articular, ONCE, On Davina 06/27/23 at 1430, For 1 dose Given 06/27/2023 2:23 PM EDT 60 mg documented in this encounter Active and Recently Administered Medications Times are shown in EDT. Scheduled Medication Order 06/25/2023 06/26/2023 06/27/2023 Iohexol (Omnipaque 180) inj 1 mL (COMPLETED) 1 mL, Injection, ONCE, On Davina 24 at 1430, For 1 dose 1423 (Given - Provid er: Shana Bailey RN - Comment: Divided dosesright then left) lidocaine 1 % inj 30 mg (COMPLETED) 30 mg (3 mL), Subcutaneous, ONCE, On Davina 24 at 1430, For 1 dose 1422 (Given - Provid er: Shana Bailey RN - Comment: Divided doses right then left) Triamcinolone Acetonide (Kenalog) 40 MG/ML inj 60 mg (COMPLETED) 60 mg, Intra-Articular, ONCE, On Davina 06/27/23 at 1430, For 1 dose 1423 (Given - Provid er: Shana Bailey RN - Comment: Divided dosesright then left) documented in this encounter Care Teams Quality Process Engineer Relationship Specialty Start Date End Date Bailee Colon MD [address] [place] [address] [place] [address] PCP - General Family Medicine 06/27/23 documented as of this encounter
--- OUTSIDE RECORDS SUMMARY | 2023-09-14 00:40 | External Medical Summary | Continuity of Care Document ---
Author Name Unknown Organization [facility] Address [address] [place], [place] [id number] Care Team Providers Care Manager Merchandising Name Role Phone Bailee Colon Primary Care Physician [phone] [id number] Date(s): 03/21/23 - 03/21/23 [facility] [address], [address] [place] [address] [phone] Encounter Diagnosis HTN (hypertension)(Discharge Diagnosis) - 03/21/23 Systolic CHF(Discharge Diagnosis) - 03/21/23 Pulmonary HTN(Discharge Diagnosis) - 03/21/23 Discharge Disposition: Home or Self Care Attending Physician: LEVAR Prajapati Sarah A Referring Physician: LEVAR Prajapati Sarah A Allergies, Adverse Reactions, Alerts Substance Reaction Severity Status ciprofloxacin Dysequilbrium Active Assessment and Plan Extracted from: Title:Cardiology Office Visit Note Author:LEVAR Ro rd, Sarah A Date:03/21/23 TAVR 04/2019. 2. Diabetes mellitus type 2 [...] TAVR. 11. Preoperative cardiac catheterization 04/2019 at [facility] with no significant left main disease, 30% mid LAD lesion; large first diagonal branch with a 60-70% narrowing; 40% mid segment narrowing of a nondominant circumflex; 30% mid and distal RCA lesions; moderate pulmonary hypertension. Mr. Mtz has put on someweight and feels distended in his abdomen but otherwise is not having heart failure symptoms. He is only taken his extra furosemide yesterday and today. I advised him to continue to do so through the and Saturday and then to have a BMPchecked. If heis getting into trouble over the holiday where he ishaving continued weight gainor any worsening symptoms he could take 2 tablets for 40 mgdailybut I would like him to let us know if he does so on Saturday. He should continue to limit hissodium intake. We reviewed his most recent echocardiogram. He does have worseningpulmonary artery pressuresandmitral tricuspidvalveregurgitation. We discussed that the treatment is really the sameandthat our goal is to manage his fluid balance. He does not have sleep apnea and his says he does not snore and he feels well restedduring the day so I will defer onsleep study testing. His blood pressure is elevated likely due to fluid overload. In the past his blood pressures have been on the low side. I do not think he has room to increase his Entresto despite the elevated blood pressuresgiven his potassium which is usually right around 5. Will be in touch after his blood work next week. He returns to the clinic in June. Immunizations Given and Recorded Vaccine Date Status [...] q6h, Disp# 8.5 g, Refills: 3, Pharmacy: [facility]#[id number] Start Date: 05/02/21 Status: Ordered dutasteride 0.5 mg oral capsule Start: 07/20/20 11:13:00 EDT, 1 cap, PO, Daily, Disp# 30 cap, Refills: 3, Pharmacy: [facility] #[id number] Start Date: 07/20/20 Status: Ordered Eliquis 5 mg oral tablet Start: 03/01/23 9:38:00 EST, 1 tab, PO, bid, Disp# 60 tab, Refills: 11, Pharmacy: [facility] [id number] Start Date: 03/01/23 Status: Ordered Entresto 24 mg-26 mg oral tablet Start: 04/26/22 9:14:00 EST, 1 tab, PO, bid, Disp# 60 tab, Refills: 11, Pharmacy: [facility] #[id number] Start Date: 04/26/22 Status: Ordered Flexeril 5 mg oral tablet Start: 03/08/23 12:32:00 EST, 1 tab, PO, qhs, Disp# 30 tab, Refills: 0, PRN: as needed for spasm, [id number] Start Date: 03/08/23 Status: Ordered Flomax 0.4 mg oral capsule Start: 11/15/20 8:06:00 EDT, 1 cap, PO, qAM, Disp# 90 cap, Refills: 3, [id number] Start Date: 11/15/20 Status: Ordered Flonase 50 mcg/inh nasal spray Start: 03/01/23 15:10:00 EST, 1 spray, each nostril, Daily, Disp# 16 g, Refills: 3, Pharmacy: [facility] #[id number] Start Date: 03/01/23 Status: Ordered furosemide 20 mg oral tablet Start: 12/26/21 8:58:00 EDT, See Instructions, Disp# 90 tab, Refills: 4, as needed for weight gain 2 lbs in 24 hours or 5 lbs in a week, Pharmacy: [facility] [id number] Start Date: 12/26/21 Status: Ordered inhaler spacer Start: 10/14/20 11:17:00 EDT, See Instructions, Disp# 1 each, dispense 1, Pharmacy: [facility][id number] Start Date: 10/14/20 Status: Ordered meclizine 25 mg oral tablet Start: 02/18/23 14:48:00 EST, See Instructions, Disp# 15 tab, Refills: 1, 1 tab PO daily PRN dizziness, PRN: as needed for dizziness, Pharmacy: [facility] #[id number] Start Date: 02/18/23 Status: Ordered metFORMIN 500 mg oral tablet Start: 12/24/22 13:07:00 EDT, See Instructions, Disp# 360 tab, Refills: 1, TAKE 2 TABLETS BY MOUTH WITH NOON MEAL AND WITH EVENING MEAL, Pharmacy: [facility] [id number] Start Date: 12/24/22 Status: Ordered metoprolol succinate 25 mg oral tablet, extended release Start: 03/04/23 10:46:00 EST, 1.5 tab, PO, Daily, Disp# 135 tab, Refills: 3, Pharmacy: [facility]#[id number] Start Date: 03/04/23 Status: Ordered multivitamin Start: 07/27/21 8:00:00 EDT, 1 tab, PO, Daily Start Date: 07/27/21 Status: Ordered One Touch Finepoint (25G) Lancets Start: 06/26/17 8:54:00, See Instructions, Disp# 1 box, Refills: 6, test daily, Dx : E11.9, Pharmacy: [facility][id number] Start Date: 06/26/17 Status: Ordered One Touch Ultra Test Strips 100 ct Start: 10/27/19 16:37:00 EDT, See Instructions, Disp# 100 each, Refills: 6, test daily, Dx: E11.9, Pharmacy: [facility] #[id number], 166.8, cm, 08/25/19 11:30:00 EDT, Height, 120.6, kg, 04/30/19 11:15:00EST, Weight Start Date: 10/27/19 Status: Ordered One Touch UltraMini Glucose Monitor Start: 06/26/17 8:52:00, See Instructions, Disp# 1 unit, Refills: 0, test daily, Dx : E11.9, [id number] Start Date: 06/26/17 Status: Ordered pravastatin 20 mg oral tablet Start: 08/28/22 17:41:00 EDT, See Instructions, Disp# 90 tab, Refills: 3, TAKE 1 TABLET BY MOUTH EVERYDAY AT BEDTIME, Pharmacy: [id number] Start Date: 08/28/22 Status: Ordered Tradjenta 5 mg oral tablet Start: 08/29/22 8:05:00 EDT, See Instructions, Disp# 90 tab, Refills: 3, TAKE 1 TABLET BY MOUTH EVERY DAY, Pharmacy: [facility] #[id number] Start Date: 08/29/22 Status: Ordered traMADol 50 mg oral tablet Start: 01/28/23 15:13:00 EDT, See Instructions, Disp# 120 tab, Refills: 0, 1-2 tab PO q6h for pain not to exceed 400 mg/day, Note to Pharmacy: PDMP verified,, PRN: as needed for pain, Pharmacy: [facility] #[id number] Start Date: 01/28/23 Status: Ordered Vitamin D3 Start: 07/27/21 8:00:00 EDT Start Date: 07/27/21 Status: Ordered Mental Status 03/21/23 Barriers to Learning one year None evide nt Mandatory Health Literacy Documentation Yes Health Literacy Communication Barriers N ever Primary Language [place] Problem List Condition Confirmation Course Effective Dates [...] Afib Confirmed Active Persistent proteinuria Confirmed Active Toe ulcer Confirmed Active Venous insufficiency of right leg Confirmed Active Vitamin D deficiency Confirmed Active Weight disorder Confirmed Active Diagnosis Diagnosis Type Effective Dates Health Status Cl inical Service Informant HTN (hypertension) Discharge Diagnosis 03/21/23 Non-Specified Systolic CHF Discharge Diagnosis 03/21/23 Non-Specified Pulmonary HTN Discharge Diagnosis 03/21/23 Non-Specified Procedures Procedure Date Related Diagnosis Body [...] residual of 634cc 4L with patient-matched implant Social History Social History Type Response Smoking Status Never smoked cigaret lisandra Sex Male Cardiology Outpatient Note * LEVAR Prajapati Sarah A: PERFORM Event Display: Cardiology Outpt Note Authored Date: [id number] Primary Care Provider MD Colon Ravishankar E Referring Provider LEVAR Prajapati Sarah A Chief Complaint Weight gain - BP 134/85 - denies chest pain/ tightness, Palpitations and SOB or heart racing, denies dizziness or lightheadedness, no edema History of Present Illness Mr. Mtz presents for concerns of weight gain and abdominal distention. Patient initiated the visit. He verified his name and date of . Visit was done over the phone per patient preference. He and his were together at their home, I was at my home alone in a room with the door closed. Total time for the visit was 9 minutes. He has noticed his pants are getting a little tight in the waist. He thinks he's up about 5 lbs buthadn't really been weighing himself recently until yesterday. No edema. No sob. No chest pain. No orthopnea. He has been taking his prn Lasix for the last 2 days. His blood pressures at home were 134/85 yesterday and 150/82 today. He does not snore and feels rested during the day. His dizziness has resolved since adjusting his metoprolol. Review of Systems All other systems reviewed and negative except as discussed in the HPI Physical Exam deferred for phone visit Assessment/Plan TAVR 04/2019. 2. Diabetes mellitus type 2 [...] TAVR. 11. Preoperative cardiac catheterization 04/2019 at [facility] with no significant left main disease, 30% mid LAD lesion; large first diagonal branch with a 60-70% narrowing; 40% mid segment narrowing of a nondominant circumflex; 30% mid and distal RCA lesions; moderate pulmonary hypertension. Mr. Mtz has put on someweight and feels distended in his abdomen but otherwise is not having heart failure symptoms. He is only taken his extra furosemide yesterday and today. I advised him tocontinue to do so through the weekend and Saturday and then to have a BMPchecked. Ifheis getting into trouble over the holiday where he ishaving continued weight gainor any worsening symptoms he could take 2 tablets for 40 mgdailybut I would like him to let us knowif he does so on Saturday. He should continue to limit hissodium intake. We reviewed his most recent echocardiogram. He does have worseningpulmonary artery pressuresandmitral tricuspidvalveregurgitation. We discussed that the treatment is really the sameandthat our goal is to manage his fluid balance. He does not have sleep apnea and his says hedoes not snore and he feels well restedduring the day so I will defer onsleep study testing. His blood pressure is elevated likely due to fluid overload. In the past his blood pressures havebeen on the low side. I do not think he has room to increase his Entresto despite the elevated blood pressuresgiven his potassium which is usually right around 5. Will be in touch after his blood work next week. He returns to the clinic in June. 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 Cancer: Father. Health Status Family Member(s) Electronic Signature on File CC: Bailee Colon MD [address] [place] [id number] Electronically Reviewed/Signed by: LEVAR Knowles Author Signature Dt/Tm:03/21/2023 02:09 PM [facility] SAG Patient Care team information Care Team Personnel Name: SHREYA Green Lynn Position: Physician Grails Web Application Developer Exempt - [facility] Surg Member Role: Lifetime Relationship Address: Address: [address] [place] [id number] [place] Name: MD Isaiah, Bailee Bailey Position: Physician Member Role: Primary Care Provider Address: Address: [address] [place] [id number] [place] Name: Virginia Maddox Kyle Position: Pharmacist Member Role: Pharmacy - Lifetime Address: Address: [address] [place] [id number] Care Team Related Persons Name: GUNNAR MTZ Address: home [address] [place] [phone] Name: NALINI MTZ Name: JOSS MTZ Address: home No Address Provided Name: JOSS MTZ
--- OUTSIDE RECORDS SUMMARY | 2023-09-14 00:40 | External Medical Summary | Continuity of Care Document ---
Author Name Unknown Organization [facility] [address] [facility] Address [address] [place], [place] [id number] Care Team Providers Care Rod Greaser Name Role Phone Julieta Colonjaden Leo Primary Care Physician [phone] [id number] Date(s): 03/18/23 - 03/18/23 [facility] [address], [address] [place] [address] [phone] Discharge Disposition: Home or Self Care Attending [...] q6h, Disp# 8.5 g, Refills: 3, [facility]acy: [id number] Start Date: 05/02/21 Status: Ordered dutasteride 0.5 mg oral capsule Start: 07/20/20 11:13:00 EDT, 1 cap, PO, Daily, Disp# 30 cap, Refills: 3, [id number] Start Date: 07/20/20 Status: Ordered Eliquis 5 mg oral tablet Start: 03/01/23 9:38:00 EST, 1 tab, PO, bid, Disp# 60 tab, Refills: 11, Pharmacy: [facility] [id number] Start Date: 03/01/23 Status: Ordered Entresto 24 mg-26 mg oral tablet Start: 04/26/22 9:14:00 EST, 1 tab, PO, bid, Disp# 60 tab, Refills: 11, [id number] Start Date: 04/26/22 Status: Ordered Flexeril 5 mg oral tablet Start: 03/08/23 12:32:00 EST, 1 tab, PO, qhs, Disp# 30 tab, Refills: 0, PRN: as needed for spasm, [id number] Start Date: 03/08/23 Status: Ordered Flomax 0.4 mg oral capsule Start: 11/15/20 8:06:00 EDT, 1 cap, PO, qAM, Disp# 90 cap, Refills: 3, [id number] Start Date: 11/15/20 Status: Ordered Flonase 50 mcg/inh nasal spray Start: 03/01/23 15:10:00 EST, 1 spray, each nostril, Daily, Disp# 16 g, Refills: 3, [id number] Start Date: 03/01/23 Status: Ordered furosemide 20 mg oral tablet Start: 12/26/21 8:58:00 EDT, See Instructions, Disp# 90 tab, Refills: 4, as needed for weight gain 2 lbs in 24 hours or 5 lbs in a week, Pharmacy: [facility] [id number] Start Date: 12/26/21 Status: Ordered inhaler spacer Start: 10/14/20 11:17:00 EDT, See Instructions, Disp# 1 each, dispense 1, [id number] Start Date: 10/14/20 Status: Ordered meclizine 25 mg oral tablet Start: 02/18/23 14:48:00 EST, See Instructions, Disp# 15 tab, Refills: 1, 1 tab PO daily PRN dizziness, PRN: as needed for dizziness, Pharmacy: [id number] Start Date: 02/18/23 Status: Ordered metFORMIN 500 mg oral tablet Start: 12/24/22 13:07:00 EDT, See Instructions, Disp# 360 tab, Refills: 1, TAKE 2 TABLETS BY MOUTH WITH NOON MEAL AND WITH EVENING MEAL, Pharmacy: [id number] Start Date: 12/24/22 Status: Ordered metoprolol succinate 25 mg oral tablet, extended release Start: 03/04/23 10:46:00 EST, 1.5 tab, PO, Daily, Disp# 135 tab, Refills: 3, Pharmacy: [id number] Start Date: 03/04/23 Status: Ordered multivitamin Start: 07/27/21 8:00:00 EDT, 1 tab, PO, Daily Start Date: 07/27/21 Status: Ordered One Touch Finepoint (25G) Lancets Start: 06/26/17 8:54:00, See Instructions, Disp# 1 box, Refills: 6, test daily, Dx : E11.9, Pharmacy: [id number] Start Date: 06/26/17 Status: Ordered One Touch Ultra Test Strips 100 ct Start: 10/27/19 16:37:00 EDT, See Instructions, Disp# 100 each, Refills: 6, test daily, Dx: E11.9, Pharmacy: [facility][id number], 166.8, cm, 08/25/19 11:30:00 EDT, Height, 120.6, kg, 04/30/19 11:15:00EST, Weight Start Date: 10/27/19 Status: Ordered One Touch UltraMini Glucose Monitor Start: 06/26/17 8:52:00, See Instructions, Disp# 1 unit, Refills: 0, test daily, Dx : E11.9, [id number] Start Date: 06/26/17 Status: Ordered pravastatin 20 mg oral tablet Start: 08/28/22 17:41:00 EDT, See Instructions, Disp# 90 tab, Refills: 3, TAKE 1 TABLET BY MOUTH EVERYDAY AT BEDTIME, Pharmacy: [id number] Start Date: 08/28/22 Status: Ordered Tradjenta 5 mg oral tablet Start: 08/29/22 8:05:00 EDT, See Instructions, Disp# 90 tab, Refills: 3, TAKE 1 TABLET BY MOUTH EVERY DAY, Pharmacy: [facility][id number] Start Date: 08/29/22 Status: Ordered traMADol 50 mg oral tablet Start: 01/28/23 15:13:00 EDT, See Instructions, Disp# 120 tab, Refills: 0, 1-2 tab PO q6h for pain not to exceed 400 mg/day, Note to Pharmacy: PDMP verified,, PRN: as needed for pain, Pharmacy: [facility][id number] Start Date: 01/28/23 Status: Ordered Vitamin [...] of 634cc 4L with patient-matched implant Results Radiology Reports * Exam Date Time Procedure Performing Provider Status 03/18/23 8:55 AM Echo TransTHORacic TTE Complete w/ Co nt Stephani Isidro; Final Notes: (Echo TransTHORacic TTE Complete w/ Cont) Reason For Exam: systolic heart failure Echo TransTHORacic TTE Complete w/ Cont Report Signatures Finalized by Dr. Mark Anthony Andrade MD on 03/18/2023 05:52 PM [place] Act 112: Yes - Discussed with patient Summary 1. Technically difficult study due to patient body habitus; Successfully enhanced with Definity contrast per lab protocol for better endocardial definition. 2. Normal left ventricular size. 3. Severe hypokinesis of the anteroseptal and inferoseptal michael and apex. 4. Mildly reduced LV systolic function. Ejection fraction as calculated by Biplane Simpsons method is 45%. 5. Mild left ventricular hypertrophy. Asymmetric basal septal hypertrophy of the elderly. 6. Elevated left ventricular end-diastolic pressure. Grade III diastolic dysfunction. 7. Moderately dilated right ventricle with moderately reduced systolic function. TAPSE is 1.2 cm. 8. Severe biatrial dilation. 9. The ascending aorta is dilated, measuring 4.2 cm with an index of 1.89 cm/m2. 10. Well-seated 29 mm Mar 3 transcatheter aortic valve replacement with appropriate hemodynamics. Trace paravalvular regurgitation. 11. Moderate mitral valve regurgitation. 12. Moderate to severe tricuspid valve regurgitation. 13. Severely elevated pulmonary artery pressures, estimated PASP is 61 mmHg. 14. Compared to the previous study performed 08/01/2021, pulmonary pressures are now severe and the MR and TR is worse. Patient Info Name: ALEJANDRA MTZ Age: 82 years : 1940 Gender: Male Ht: 165 cm Wt: 102 kg BSA: 2.21 m2 BP: 162 / 82 mmHg Heart Rhythm: Atrial Fibrillation Technical Quality: Technically difficult study Exam Date: 03/18/2023 8:07 AM Exam Location: [facility] Patient Status: Outpatient Staff Ordering Physician: Rebecca Prajapati Vigoureux Printer: Stephani Isidro RDCS, RVT Attending Physician: Rebecca Prajapati Study Info CPT J3490 - 43093 - Indications I5022 - Chronic systolic (congestive) heart failure Procedure(s) * A complete two-dimensional, color flow and Doppler transthoracic echocardiogram was performed. * Failed 2D images were enhanced with Definity per lab protocol. * Vigoureux Printer, Stephani Isidro RDCS, RAISA, provided education about ultrasound enhancing agent to the patient. Exam Type: Cardiac Basic Left Ventricle Normal left ventricular size. Severe hypokinesis of the anteroseptal and inferoseptal michael and apex. Mildly reduced LV systolic function. Ejection fraction as calculated by Biplane Simpsons method is 45%. Mild left ventricular hypertrophy. Asymmetric basal septal hypertrophy of the elderly. Elevated left ventricular end-diastolic pressure. Grade III diastolic dysfunction. Right Ventricle Moderately dilated right ventricle with moderately reduced systolic function. TAPSE is 1.2 cm. Left Atrium Severe left atrial dilation. Right Atrium Severe right atrial dilation. Atrial Septum Appears intact. Aortic Valve Well-seated 29 mm Mar 3 transcatheter aortic valve replacement with appropriate hemodynamics. Trace paravalvular regurgitation. Pulmonic Valve Unremarkable pulmonic valve. Mitral Valve Severely calcified mitral valve annulus with restriction of the posterior mitral valve leaflet and calcification of the anterior mitral valve leaflet without significant mitral stenosis. Moderate mitral valve regurgitation. Tricuspid Valve Moderate to severe tricuspid valve regurgitation. Severely elevated pulmonary artery pressures, estimated PASP is 61 mmHg. Pericardium/Pleural No pericardial effusion. Inferior Vena Cava Dilated IVC with reduced (less than 50%) collapse. Estimated right atrial pressure is 15 mmHg. Aorta The aortic root at the sinus of Valsalva is normal in size for BSA, measuring 4.1 cm with an index of 1.87 cm/m2. The ascending aorta is dilated, measuring 4.2 cm with an index of 1.89 cm/m2. Normal aortic arch. Left Ventricular Outflow Tract Name Value Normal LVOT 2D LVOT Diameter 2.8 cm LVOT Doppler LVOT Peak Velocity 0.71 m/s LVOT Peak Gradient 2 mmHg LVOT Mean Gradient 1 mmHg LVOT VTI 13.71 cm LVOT VTI/AV VTI Ratio 0.36 LVOT Stroke Volume 86.21 ml LVOT Stroke Volume Index 0.04 l/m2 Pulmonic Valve Name Value Normal PV 2D RVOT Diameter (2D) 2.7 cm 1.7-2.7 RVOT Doppler RVOT Peak Velocity 0.46 m/s RVOT Peak Gradient 1 mmHg PV Doppler PV Peak Gradient 2 mmHg Mitral Valve Name Value Normal MV Doppler MV PHT 47 ms MV Diastolic Function MV E Peak Velocity 1.34 m/s <=0.50 MV Decel Time 164 ms MV Annular TDI MV Septal s' Velocity 3.44 cm/s MV Septal e' Velocity 4.50 cm/s >=7.00 MV E/e' (Septal) 29.8 <=8.0 MV Lateral s' Velocity 5.63 cm/s MV Lateral e' Velocity 8.15 cm/s >=10.00 MV E/e' (Lateral) 16.45 <=8.00 MV e' Average 6.33 MV E/e' (Average) 23.14 <=14.00 Tricuspid Valve Name Value Normal TV Regurgitation Doppler TR Peak Velocity 3.38 m/s <=2.80 Estimated PAP/RSVP RA Pressure 15 mmHg <=5 PA Systolic Pressure 61 mmHg <40 TV Diastolic Function TV E Peak Velocity 0.47 m/s TV Decel Time 216 ms >=120 TV Annular TDI TV Lateral Amarilis s' Velocity 10.7 cm/s 9.5-18.7 TV Lateral Amarilis e' Velocity 11.3 cm/s <7.8 TV E/e' 4.15 2.00-6.00 Aorta Name Value Normal Ascending Aorta Sinus of Valsalva Diameter 4.1 cm 3.1-3.7 Sinus of Valsalva Index 1.87 cm/m2 1.50-1.90 Prox Asc Ao Diameter 4.2 cm 2.6-3.4 Prox Asc Ao Diameter Index 1.89 cm/m2 1.30-1.70 Thoracic Aorta Ao Arch Diameter 3.8 cm Venous Name Value Normal IVC/SVC IVC Diameter (Insp 2D) 1.8 cm IVC Diameter (Exp 2D) 2.3 cm <=2.1 IVC Diameter Percent Change (2D) 21 % >=50 Aortic Valve Name Value Normal AV Doppler AV Peak Velocity 2.01 m/s <2.00 AV Peak Gradient 16 mmHg AV Mean Gradient 9 mmHg <20 AV VTI 37.81 cm AV Area (Cont Eq VTI) 2.3 cm2 >=2.0 AV Area Index (Cont Eq VTI) 1.03 cm2/m2 AV Area (Cont Eq Derrick) 2.2 cm2 AV Area Index (Cont Eq Derrick) 1.00 cm2/m2 AV V1/V2 Ratio 0.35 AV Regurgitation 2D LVOT Area 6.3 cm2 Ventricles Name Value Normal LV Dimensions 2D/MM IVS Diastolic Thickness (2D) 1.4 cm 0.6-1.0 LVID Diastole (2D) 4.7 cm 3.6-5.6 LVIW Diastolic Thickness (2D) 1.1 cm 0.6-1.0 LVID Systole (2D) 3.9 cm 2.5-4.0 LVOT Diameter 2.8 cm LV Mass (2D Cubed) 224.13 g 88.00-224.00 LV Mass Index (2D Cubed) 0.01 g/cm2 0.00-0.01 Relative Wall Thickness (2D) 0.47 LV Fractional Shortening/Ejection Fraction 2D/MM LV Fractional Shortening (2D) 18 % 25-43 LV Diastolic Volume (4C MOD) 122 ml LV Diastolic Volume (2C MOD) 113 ml LV Diastolic Volume (BP MOD) 118 ml 62-150 LV Diastolic Volume Index (BP MOD) 53.22 ml/m2 34.00-74.00 LV Systolic Volume (BP MOD) 62 ml 21-61 LV Systolic Volume Index (BP MOD) 27.89 ml/m2 11.00-31.00 LV EF (BP MOD) 45 % 57-68 LV SV (BP MOD) 55.99 ml RV Dimensions 2D/MM RV Basal Diastolic Dimension 5.0 cm 2.5-4.1 TAPSE 1.2 cm >=1.7 Atria Name Value Normal LA Dimensions LA Area (4C) 29.4 cm2 LA Length (4C) 6.4 cm LA Area (2C) 30.3 cm2 LA Length (2C) 6.8 cm LA Volume (4C A-L) 114.52 ml LA Volume (2C A-L) 114.42 ml LA Volume (BP A-L) 118 ml 18-58 LA Volume Index (BP A-L) 53.40 ml/m2 <=34.00 RA Dimensions RA Area (4C) 28.1 cm2 <=18.0 Final Signed by:DO Andrade Jason D Signed (Electronic Signature):03/18/2023 8:07 a Social History Social History Type Response Smoking Status Never smoked cigaret lisandra Sex Male Patient Care team information Care Team Personnel Name: SHREYA Green, Deanna Position: Physician Property Claims Adjuster Exempt - Vasc Surg Member Role: Lifetime Relationship Address: Address: [address] [place] [address] Name: MD Isaiah, Bailee Bailey Position: Physician Member Role: Primary Care Provider Address: Address: [address] [place] [address] Name: Virginia Maddox Kyle Position: Pharmacist Member Role: Pharmacy - Lifetime Address: Address: [address] [place] [id number] Care Team Related Persons Name: GUNNAR MTZ Address: home [address] [facility] [phone] Name: NALINI MTZ Name: JOSS MTZ Address: home No Address Provided Name: JOSS MTZ
--- OUTSIDE RECORDS SUMMARY | 2023-09-14 00:40 | External Medical Summary | Summary of Care ---
Author Name Unknown Organization [facility] Address [address] [place] [address] Phone [phone] Care Team Providers Care Auxiliary Operator Name Role Phone Leoncio Valladares MD Primary Care Provider Encounter Details Date Type Department Care Team (Late st Contact Info) Description 04/11/2023 Population Health External Data Unspecified Department Allergies No known active allergiesdocumented as of this encounter (statuses as of 04/15/2023) Medications Medication Sig Dispensed Refills Start Date End Date Status CLOBETASOL PROPIONATE 0.05 % EX OINTIndications:De rmatitis Apply to affected area twice daily 60GM 5 04/03/2006 Active Additional Information Patient not taking.Reported on 11/09/2020 CELEBREX 200 MG PO CAPS one twcie a day 0 Active HYDROCODONE-ACETAM INOPHEN 5-325 MG PO TABS one every 4 hours for breakthru pain 0 Active OXYCODONE HCL 20 MG PO TABS one twice a day 0 Active linaGLIPtin 5 MG Oral Tablet (Tradjenta) Take 1 Tablet by mouth in the morning. 0 Active metFORMIN HCl 500 MG Oral Tablet (Glucophage) Take 1 Tablet by mouth 2 times a day with morning and evening meals. 0 Active Apixaban 5 MG Oral Tablet Take 1 Tablet by mouth in the morning and 1 Tablet before bedtime. 0 Active dilTIAZem HCl 30 MG Oral Tablet (Cardizem) Take 1 Tablet by mouth 4 times a day before meals and at bedtime. 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 Dermatitis 04/03/2006 documented as of this encounter (statuses as of 04/15/2023) Social History Tobacco Use Types Packs/Day Years [...] Care Team (Late st Contact Info) Description 05/08/2023 10:00 AM EST Office Visit Interventional Pain Center, [facility] [address] [address] Luci Schaffer PA-C [address] [place] [address] 06/18/2023 8:15 AM EDT Office Visit Urology, [facility] [address] [address] Berny Wakefield MD [address] [facility] [address] [address] Health Maintenance Due Date Last Done Comments Depression Screening 1952 DTaP,Tdap,and Td Vaccines (1 - Tdap) 09/03/1959 Zoster Vaccines (1 of 2) 1990 COVID-19 Vaccine (4 - 2022-2 4 season) 2022 05/30/2020, 05/11/2020, 05/02/2020 Influenza Vaccine (FLU shot) (#1) 2022 Pneumococcal Vaccine: 65+ Years Completed 03/01/2014, 04/29/2012 GARDASIL-HPV IMMUNIZATION SERIES Aged Out No longer eligible b ased on patient's age to complete this topic Hepatitis B Aged Out No longer eligi ble based on patient's age to complete this topic MENINGOCOCCAL (MENACTRA/MENVEO) Aged Out No longer eligible b ased on patient's age to complete this topic documented as of this encounter Medical Devices Not on filedocumented as of this encounter Care Teams Auxiliary Operator Relationship Specialty Start Date End Date Leoncio Valladares MD [address] [facility] [address] [place] [address], [place] [address] PCP - General 04/06/99 documented as of this encounter
--- OUTSIDE RECORDS SUMMARY | 2023-09-14 00:40 | External Medical Summary | Summary of Care ---
Author Name Unknown Organization [facility] Address [address] [place] [address] Phone [phone] Care Team Providers Care Scan Coordinator Name Role Phone Leoncio Valladares MD Primary Care Provider Reason for Visit * Reason Onset Date Comments Order Request 05/22/2023 Encounter Details Date Type Department Care Team (Late st Contact Info) Description 05/22/2023 Telephone Urology, [facility] [address] [facility] [place] [address] Berny Wakefield MD 27 [facility] [address] [place] [address] Order Request Allergies No known active allergiesdocumented [...] encounter Miscellaneous Notes * Telephone Encounter - Tata Rodas OSA - 05/22/2023 8:37 AM EST Pt called and is scheduled for may with Dr Wakefield can fax his psa lab order to [phone] documented in this encounter Plan of Treatment Upcoming Encounters Date Type Department Care Team (Latest Contact Info) Description 06/18/2023 8:15 AM EDT Office Visit Urology, [facility] [address] [facility] [place] [address] Berny Wakefield MD 27 [facility] [address] [address] 07/10/2023 7:35 AM EDT Hospital Encounter [facility], Operating Room [facility] [address] [place] [phone] Robin Linares, DO [address] [place] [phone] 07/10/2023 7:35 AM EDT - 07/10/2023 8:00 AM EDT Surgery OR [facility], Operating Room [facility] [address] [place] [phone] Robin Linares, DO [address] [place] [phone] INJECTION SACROILIAC JOINT Scheduled Procedures Name Priority [...] filedocumented as of this encounter Care Teams Scan Coordinator Relationship Specialty Start Date End Date Leoncio Valladares MD [address] [place] [address] [address] [place] [address] PCP - General 04/06/99 documented as of this encounter
--- OUTSIDE RECORDS SUMMARY | 2023-09-14 00:40 | External Medical Summary | Summary of Care ---
Author Name Unknown Organization [facility] Address [address] [place] [address] Phone [phone] Care Team Providers Care Dental Hygiene Teacher Name Role Phone Leoncio Valladares MD Primary Care Provider Reason for Visit * Reason Comments Back Pain Encounter Details Date Type Department Care Team (Latest Contact Info) Description 05/08/2023 10:00 AM EST Office Visit [facility], [facility] [address] [facility] [place] [address] Luci Sweet PA-C [address] [facility] [place] [address] Sacroiliitis (HCC)*; Spondylosis of lumbar region without myelopathy or radiculopathy Allergies No known active allergiesdocumented as of this encounter (statuses as of 05/09/2023) Medications Medication Sig Dispensed Refills Start Date [...] and 1 Tablet before bedtime. 0 Active HYDROCODONE-ACET AMINOPHEN 5-325 MG PO TABS one every 4 hours for breakthru pain 0 4 Discontinue d(Medicatio n List Clean Up) OXYCODONE HCL 20 MG PO TABS one twice a day 0 4 Discontinue d(Medicatio n List Clean Up) dilTIAZem HCl 30 MG Oral Tablet (Cardizem) Take 1 Tablet by mouth 4 times a day before meals and at bedtime. 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 Dermatitis 04/03/2006 documented as of this encounter (statuses as of 05/09/2023) Social History Tobacco Use Types Packs/Day Years Used Date Smoking Tobacco: Never Smokeless Tobacco: Never Sex and Gender Information Value Date Recorded Sex Assigned at Not on file Gender Identity Not on file Sexual Orientation Not on file Job Start Date Occupation Industry Not on file Not on file Not on file documented as of this encounter Progress Notes * Luci Sweet PA-C - 05/08/2023 10:00 AM EST GENERAL HISTORY & PHYSICAL EXAMINATION - Anesthesia and Pain Service Name: Luís Murray Location: [facility] REFERRING PHYSICIAN: Cem Nunez PA-C Thank you for referring Luís Murray. CHIEF COMPLAINT: Low back pain HPI: Luís Murray is a 82 year old male who complains of R > L low back and buttock pain. Notes chronic low back pain started more than 25 years ago without preceding injury. 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 Increased axial low back pain in the past year. Mild relief with conservative care including medication management, home stretching, ice and moist heat. Recently completed physical therapy thru [facility], felt this aggravated the pain. Recently evaluated by [facility], updated xrays and recommended consideration of injections. Symptoms occur daily. Describes pain as aching. Pain is constant, rated 9/10. Aggravating factors include: lumbar flexion and extension, transitional movement, prolonged standing. Alleviating factors include: rest. Admits associated weakness B LE - using a cane for a few years. Denies LE paresthesia. Denies radicular pain bilaterally. Denies groin pain bilaterally. Denies bowel or bladder incontinence. Denieshx spine surgery or injections. Hx B TKA, denies hx hip surgery. Pain is affecting ADL. Reviewed L spine xrays, report only - images requested 04/09/23 - mild listhesis L3/4, significant DDD, no acute compression changes. Significant past medical hx includes: obesity, prostate cancer and atrial fibrillation. Current medications used for pain: celebrex, tramadol, biofreeze. Past medications used for pain: cyclobenzaprine, advil, oral steroid. Anticoagulation therapy: eliquis Diabetic: yes, unable to view recent HbA1c. He does monitor blood glucose at home. Denies consistent readings greater than 150. Presents with significant other, Lisa. PAST MEDICAL HISTORY: Past Medical History: Diagnosis Date Elevated cholesterol OA (osteoarthritis) Obesity Past Medical History - Pertinent Findings: (-) clotting disorder PAST SURGICAL HISTORY: Past Surgical History: Procedure Laterality Date ANESTH, TOTAL KNEE REPLACEMENT Bilateral CARPAL TUNNEL SURGERY COLONOSCOPY SHOULDER SURGERY PROCEDURE NEC FAMILY HISTORY: Family History Problem Relation Age of Onset Other (scleroderma) Mother Cirrhosis Father Family History - Pertinent Findings: (-) clotting disorder SOCIAL HISTORY: Social History Tobacco Use Smoking status: Never Smokeless tobacco: Never Substance Use Topics Alcohol use: Not on file Drug use: Not on file CURRENT MEDICATIONS: Note that discontinued and completed medications (per the MAR) continue to display for 24 hours. Ordered medications to be given in the future also display. Current Outpatient Medications Medication Sig Dispense Refill CLOBETASOL PROPIONATE 0.05 % EX OINT Apply to affected area twice daily (Patient not taking: See nursing care plan.) 60GM 5 CELEBREX 200 MG PO CAPS one twcie a day HYDROCODONE-ACETAMINOPHEN 5-325 MG PO TABS one every 4 hours for breakthru pain OXYCODONE HCL 20 MG PO TABS one twice a day linaGLIPtin 5 MG Oral Tablet (Tradjenta) Take 1 Tablet by mouth in the morning. metFORMIN HCl 500 MG Oral Tablet (Glucophage) Take 1 Tablet by mouth 2 times a day with morning andevening meals. Apixaban 5 MG Oral Tablet Take 1 Tablet by mouth in the morning and 1 Tablet before bedtime. dilTIAZem HCl 30 MG Oral Tablet (Cardizem) Take 1 Tablet by mouth 4 times a day before meals and atbedtime. Metoprolol Tartrate 50 MG Oral Tablet (Lopressor) [...] the morning and 1 Tablet before bedtime. No current facility-administered medications for this visit. ALLERGIES: Patient has no known allergies. ROS: Constitutional: Negative for fatigue, fever, appetite change, unexplained weight loss. ENT: Negative for hearing loss, sore throat. Respiratory: Negative for cough, shortness of breath, dyspnea. Musculoskeletal: Negative for neck, mid-back pain. + low back pain - see HPI Neurological: Negative for headaches, seizures. Genitourinary: Negative for dysuria, urinary frequency, hematuria. Hematologic/ Lymphatic: Negative for lymphadenopathy. + easy bleeding, bruising Gastrointestinal: Negative for abdominal pain, nausea, vomiting, constipation, diarrhea. Cardiovascular: Negative for chest pain, palpitations, ankle swelling, orthopnea. PHYSICAL EXAMINATION: Most Recent Vital Signs: There were no vitals filed for this visit. General Appearance: Patient appears to be about stated age, pleasant and cooperative with normal affect. HEENT: head normocephalic, pupils equal round and reactive to light and accommodation, EOMI, hearing intact and equal bilaterally, and nose clear, throat normal Chest: No gross abnormality. Nonlabored breathing. Lumbar Spine: Normal lumbar lordatic curvature is present. Skin is intact without gross abnormalities. No masses palpable. Midline and B paravertebral musculature nontender. + tenderness B sacroiliacjoint. No evidence of myofascial trigger points. Limited active ROM with flexion and extension of the lumbar spine. Lower Extremity Strength: Hip Flexion 5/5 bilaterally. Hip Abductor 5/5 bilaterally. Hip Adductor 5/5 bilaterally. Extensor Hallicus Longus 5/5 bilaterally. Deep Tendon Reflex: Patellar: 2/4 bilaterally. Achilles: 1/4 bilaterally. Low Back Provocative Testing: Straight Leg Raise Test: negative bilaterally. Lumbar Facet Loading: positive bilaterally. Sacroiliac Joint Provocative Testing: Iliac compression: positive BROOKS test: positive bilaterally, R > L Thigh thrust: positive bilaterally Distraction test: positive bilaterally B HIP: No gross abnormality. Nontender. Mildly limited passive ROM, does not reproduce lumbosacral pain. Sensation: Dermatomal sensation not formally tested. Grossly normal and symmetric unless otherwise specified. Gait: Intact, no sign of ataxia. Ambulates with assistance. IMAGING: L spine xrays, report only - images requested 04/09/23 - mild listhesis L3/4, significant DDD, no acute compression changes. 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 Pain is limiting ADL. Can reproduce pain with SI joint palpation, provocative testing and facet loading. Favor SI joint injection as this could be completed while using eliquis. Risks of SI joint injection including, but not limited to, bleeding, infection, worsening pain, failure to alleviate pain and possible steroid side effectswere reviewed. Pre-procedure instructions reviewed, reiterated need for truck driver teamster, no medication holds. Due to severity and duration of symptoms, will schedule B SI joint injection. Follow up six weeks after procedure. Consider facet work up if symptoms persist, would need clearance from cardiology for eliquis hold. Luci Sweet PA-C 05/08/2023 documented in this encounter Nursing Notes * Tata Salmeron LPN - 05/08/2023 10:01 AM EST Patient presents with low back pain for many years-constant Increased pain with PT Imaging in chart Does not radiate into lower ext No hx of inj's or surgeries documented in this encounter Plan of Treatment Upcoming Encounters Date Type Department Care Team (Latest Contact Info) Description 06/18/2023 8:15 AM EDT Office Visit Urology, [facility] [address] [place] [phone] Berny Wakefield MD [address] [facility] [address] [place] [address] 07/10/2023 7:35 AM EDT Hospital Encounter OR [facility], Operating Room [facility] [address] [place] [phone] Robin Linares, [address] [place] [phone] 07/10/2023 7:35 AM EDT - 07/10/2023 8:00 AM EDT Surgery OR [facility], Operating Room [facility] [address] [place] [phone] Robin Linares, [address] [place] [phone] INJECTION SACROILIAC JOINT Scheduled Orders Name Type Priority Associated Diagnoses Orde r Schedule SACROILIAC JOINT INJECT W/GUIDANCE Procedures Routine Sacroiliitis (HCC) Expected: 08/06/2023 (Approximate), Expires: 06/05/2024 Scheduled Procedures Name Priority Associated Diagnoses Date/Ti [...] as of this encounter Visit Diagnoses Diagnosis Sacroiliitis (HCC)- Primary Sacroiliitis, not elsewhere classified Spondylosis of lumbar region without myelopathy or radiculopathy Lumbosacral spondylosis without myelopathy Inflammation of sacroiliac joint (HCC) Sacroiliitis, not elsewhere classified documented in this encounter Care Teams Dental Hygiene Teacher Relationship Specialty Start Date End Date Leoncio Valladares MD [address] [facility] [address] [place] [address] PCP - General 04/06/99 documented as of this encounter
--- OUTSIDE RECORDS SUMMARY | 2023-09-14 00:40 | External Medical Summary | Continuity of Care Document ---
Author Name Unknown Organization [facility] [address] [place] Address [address] [place], [place] [id number] Care Team Providers Care Health And Safety Manager Name Role Phone Julieta Coolnjaden Leo Primary Care Physician [phone] Encounter [facility] [id number] Date(s): 03/28/23 - 03/28/23 [facility] [address] [facility] [address] [facility] [address] [place], [phone] Encounter Diagnosis Essential (primary) hypertension(Final) - Discharge Disposition: Home or Self Care [...] q6h, Disp# 8.5 g, Refills: 3, Pharmacy: [facility]/pharmacy#[id number] Start Date: 05/02/21 Status: Ordered dutasteride 0.5 mg oral capsule Start: 07/20/20 11:13:00 EDT, 1 cap, PO, Daily, Disp# 30 cap, Refills: 3, Pharmacy: [facility]/pharmacy #[id number] Start Date: 07/20/20 Status: Ordered Eliquis 5 mg oral tablet Start: 03/01/23 9:38:00 EST, 1 tab, PO, bid, Disp# 60 tab, Refills: 11, Pharmacy: [facility] STORE [id number] Start Date: 03/01/23 Status: Ordered Entresto 24 mg-26 mg oral tablet Start: 04/26/22 9:14:00 EST, 1 tab, PO, bid, Disp# 60 tab, Refills: 11, Pharmacy: [facility]/pharmacy #[id number] Start Date: 04/26/22 Status: Ordered Flexeril 5 mg oral tablet Start: 03/08/23 12:32:00 EST, 1 tab, PO, qhs, Disp# 30 tab, Refills: 0, PRN: as needed for spasm, Pharmacy: [facility]/pharmacy #[id number] Start Date: 03/08/23 Status: Ordered Flomax 0.4 mg oral capsule Start: 11/15/20 8:06:00 EDT, 1 cap, PO, qAM, Disp# 90 cap, Refills: 3, Pharmacy: [facility]/pharmacy #[id number] Start Date: 11/15/20 Status: Ordered Flonase 50 mcg/inh nasal spray Start: 03/27/23 12:45:00 EST, 1 spray, each nostril, Daily, Disp# 16 g, Refills: 3, Pharmacy: [facility]/pharmacy #[id number] Start Date: 03/27/23 Status: Ordered furosemide 20 mg oral tablet Start: 12/26/21 8:58:00 EDT, See Instructions, Disp# 90 tab, Refills: 4, as needed for weight gain 2 lbs in 24 hours or 5 lbs in a week, Pharmacy: [id number] Start Date: 12/26/21 Status: Ordered inhaler spacer Start: 10/14/20 11:17:00 EDT, See Instructions, Disp# 1 each, dispense 1, [id number] Start Date: 10/14/20 Status: Ordered meclizine 25 mg oral tablet Start: 02/18/23 14:48:00 EST, See Instructions, Disp# 15 tab, Refills: 1, 1 tab PO daily PRN dizziness, PRN: as needed for dizziness, [id number] Start Date: 02/18/23 Status: Ordered metFORMIN 500 mg oral tablet Start: 12/24/22 13:07:00 EDT, See Instructions, Disp# 360 tab, Refills: 1, TAKE 2 TABLETS BY MOUTH WITH NOON MEAL AND WITH EVENING MEAL, Pharmacy: [facility] STORE [id number] Start Date: 12/24/22 Status: Ordered metoprolol succinate 25 mg oral tablet, extended release Start: 03/04/23 10:46:00 EST, 1.5 tab, PO, Daily, Disp# 135 tab, Refills: 3, [id number] Start Date: 03/04/23 Status: Ordered multivitamin Start: 07/27/21 8:00:00 EDT, 1 tab, PO, Daily Start Date: 07/27/21 Status: Ordered One Touch Finepoint (25G) Lancets Start: 06/26/17 8:54:00, See Instructions, Disp# 1 box, Refills: 6, test daily, Dx : E11.9, Pharmacy: [facility]/pharmacy #[id number] Start Date: 06/26/17 Status: Ordered One Touch Ultra Test Strips 100 ct Start: 10/27/19 16:37:00 EDT, See Instructions, Disp# 100 each, Refills: 6, test daily, Dx: E11.9, [id number], 166.8, cm, 08/25/19 11:30:00 EDT, Height, 120.6, kg, 04/30/19 11:15:00EST, Weight Start Date: 10/27/19 Status: Ordered One Touch UltraMini Glucose Monitor Start: 06/26/17 8:52:00, See Instructions, Disp# 1 unit, Refills: 0, test daily, Dx : E11.9, Pharmacy: [facility]/pharmacy #[id number] Start Date: 06/26/17 Status: Ordered pravastatin 20 mg oral tablet Start: 08/28/22 17:41:00 EDT, See Instructions, Disp# 90 tab, Refills: 3, TAKE 1 TABLET BY MOUTH EVERYDAY AT BEDTIME, Pharmacy: [facility] STORE [id number] Start Date: 08/28/22 Status: Ordered Tradjenta 5 mg oral tablet Start: 08/29/22 8:05:00 EDT, See Instructions, Disp# 90 tab, Refills: 3, TAKE 1 TABLET BY MOUTH EVERY DAY, [id number] Start Date: 08/29/22 Status: Ordered traMADol 50 mg oral tablet Start: 01/28/23 15:13:00 EDT, See Instructions, Disp# 120 tab, Refills: 0, 1-2 tab PO q6h for pain not to exceed 400 mg/day, Note to Pharmacy: PDMP verified,, PRN: as needed for pain, [id number] Start Date: 01/28/23 Status: Ordered Vitamin [...] patient-matched implant Results Laboratory List Name Date Basic Metabolic Panel (BASIC METAB PANEL ) 03/28/23 Most recent to oldest [Reference Range]: 1 eGFR CKD-EPI [>60 mL/min/1.73 m2] 81 mL/ min/1.73 m2 1 (03/28/23 7:47 AM) Estimated CrCl 67.80 mL/min (03/28/23 8:14 AM) Anion Gap [5-14 mmol/L] 7 mmol/L (03/28/23 7:47 AM) BUN [7-20 mg/dL] 23 mg/dL *HI* (03/28/23 7:47 AM) Ca [8.4-10.2 mg/dL] 9.3 mg/dL (03/28/23 7:47 AM) Cl- [96-107 mmol/L] 104 mmol/L (03/28/23 7:47 AM) HCO3 [22-30 mmol/L] 28 mmol/L (03/28/23 7:47 AM) Cret [0.70-1.30 mg/dL] 0.94 mg/dL (03/28/23 7:47 AM) Glu [74-106 mg/dL] 99 mg/dL (03/28/23 7:47 AM) K [3.5-5.1 mmol/L] 5.0 mmol/L (03/28/23 7:47 AM) Na [137-145 mmol/L] 139 mmol/L (03/28/23 7:47 AM) 1Result Comment: [facility] [address] [place] [id number] Social History Social History Type Response Smoking Status Never smoked cigaret lisandra Sex Male Patient Care team information Care Team Personnel Name: SHREYA Green Lynn Position: Physician Sheet Rock Hanger Exempt - Vasc Surg Member Role: Lifetime Relationship Address: Address: [address] [place] [address] [address] [place] [address] Name: MD Isaiah, Bailee Bailey Position: Physician Member Role: Primary Care Provider Address: Address: [address] [facility] [address] [place] [address] Name: Virginia Maddox Kyle Position: Pharmacist Member Role: Pharmacy - Lifetime Address: Address: [address] [place] [id number] Care Team Related Persons Name: GUNNAR MTZ Address: home [address] [place] [phone] Name: NALINI MTZ Name: JOSS MTZ Address: home No Address Provided Name: JOSS MTZ
[2023-09-14 05:56] LABS: Hematocrit (blood only) 37.2 % (42.0-52.0); Hemoglobin 12.9 g/dl (14.0-18.0); Mean Corpuscular Hemoglobin 31.2 pg (25.0-34.0); Mean Corpuscular Hgb Conc 34.7 g/dL (32.0-36.0); Mean Corpuscular Volume 89.9 fL (80.0-100.0); Mean Platelet Volume 10.7 fL (9.4-12.4); Platelet Count 222 K/uL (130-400); RDW Coefficient of Variation 17.5 % (11.5-14.5); RDW Standard Deviation 58.2 fL (36.4-46.3); Red Blood Count 4.14 M/uL (4.70-6.10); White Blood Count 8.89 K/ul (4.8-10.8)
[2023-09-14 06:18] LABS: Alanine Aminotransferase 202 U/L (7-52); Albumin Globulin Ratio 1.1 (0.9-2); Albumin Level 3.6 gm/dl (3.4-5.0); Alkaline Phosphatase 310 U/L (34-104); Anion Gap 10 (3-11); Aspartate Aminotransferase 111 U/L (13-39); BUN Creatinine Ratio 21.7 (10-20); Bilirubin,Total 12.2 mg/dl (0.2-1.0); Blood Urea Nitrogen 23 mg/dl (6-23); Calcium 10.1 mg/dl (8.6-10.3); Carbon Dioxide 21 mmol/L (21-32); Chloride 103 mmol/L (98-107); Creatinine Clr Calc Pharmacy 56.5 ml/min; Est GFR (African American) 74.9 ml/min; Est GFR (Non-African American) 64.6 ml/min; Globulin 3.3 gm/dl (2.5-4.0); Glucose 215 mg/dl (70-99(Fasting)); Magnesium 1.8 mg/dl (1.7-2.4); Potassium 4.8 mmol/L (3.5-5.1); Sodium 134 mmol/L (136-145); Total Protein 6.9 gm/dl (6.0-8.3)
[2023-09-14 06:22] LABS: ANTI-Xa, UFH(UnfractionatedHep 0.46 IU/ml (0.3-0.7); INR 1.1 (0.9-1.1); Partial Thromboplastin Time 55 Seconds (21-31); Prothrombin Time 11.9 Seconds (9.0-12.0)
--- NOTE | 2023-09-14 10:53 | Hospitalist Progress Note ---
Date of Service September 14, 2023 Assessment & Plan (1) Painless jaundice: Plan: Patient presented to ED on 09/12/2023 with chief complaint of painless jaundice. He denied any further symptoms. -Labs reviewed 09/13 significant for total bilirubin 12.2, direct bilirubin 6.7, AST/ALT 111/202, alk phos 310, CEA 9.4 -CA 19-9 and CA125 pending. -Labs 09/12: Tylenol level negative -CTAP 09/11 - no significant pathology - GI consultation - recommended MRCP, hepatitis/tylenol labs -MRCP 09/12 -concerning for mild intrahepatic/extrahepatic biliary ductal dilation w/o choledocholithiasis. Mild tapered narrowing of distal CBD proximal to ampulla. 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 possible pancreatic ductal stricture within pancreatic head. no obstructing mass. -will trend lab work. -Patient ordered heart healthy, carb consistent diet. -will plan to reach out to [facility] on 09/14 morning to facilitate transfer in PM for evaluation of EUS/ERCP. Patients would like to be transported with him if able. If patient becomes unstable prior to this arrangement, they are to be notified so he can be transferred sooner. -Reviewed plan with family and patient and they are agreeable. -Placed orders for CBC, CMP, direct bilirubin in AM. (2) Diabetes: Plan: -Patient placed on ACCU checks w/ NovoLog SSI. Correction factor tightened to 25. -hold linagliptin and metformin -reviewed A1c 09/12: 8.4 -heart healthy, carb consistent diet. Plan Did speak with [facility] today via [employer] who stated patients pacemaker was compatiable with MRI machine. Patient also underwent [facility] X-ray 09/12 which was negative for metal forigen bodies prior to MRI. For chronic conditions: -Patient was placed on tramadol 50mg q6h as needed for back pain. -hold Eliquis, placed on therapeutic heparin low dose w/o bolus -hold metoprolol succinate, Entresto, and diltiazem -Metoprolol tartrate 2.5mg IV q4h Diet: heart healthy, carb consistent DVT prophylaxis: heparin Full code Disposition: med/tele Admission and Anticipated Discharge Date Admission Date: September 12, 2023 Subjective Patient seen and examined this morning with at bedside. Patient did report back pain this morning and overnight. Outpatient he uses tramadol 50-100mg as needed every 6 hours for pain and has not been given anything since he presented to the hospital. Aside from his back pain he was without complaints. He tolerated his breakfast. He denied chest pain, shortness of breath, or abdominal pain. He denies nausea or vomiting. Physical Exam 2 Constitutional: WD/WN, vitals as above Eyes: sceral icterus Respiratory: normal respiratory effort, lungs clear to auscultation Cardiovascular: RRR, no murmur, no edema Skin: jaundice Neurologic: PERRL, EOMI, accommodation nl, no face palsy, no dysarthria Psychiatric: A+Ox3, euthymic affect Results & Data Results & Data Vital Signs (Past 12 Hours) Vital Signs Temp Pulse Pulse Resp BP BP Pulse Ox 09/14/23 07:56 98 H 132/88 09/14/23 07:53 37.1 C 92 H 18 121/80 95 09/14/23 07:41 98 H 132/88 09/14/23 07:00 90 09/14/23 04:49 85 09/14/23 04:24 98 H 132/81 09/14/23 03:01 36.5 C 87 20 121/76 96 09/13/23 23:13 36.6 C 87 19 111/70 97 09/13/23 23:05 86 O2 Del Method 09/14/23 07:56 09/14/23 07:53 Room Air 09/14/23 07:41 09/14/23 07:00 09/14/23 04:49 09/14/23 04:24 09/14/23 03:01 Room Air 09/13/23 23:13 Room Air 09/13/23 23:05 Laboratory Results 09/14/23 05:38 09/14/23 05:38 PG Care Time/CCT Total # of Minutes Spent Total Time Spent with Patient: Total time spent is greater than 50% in coordination of care (as documented) at patient's floor/unit and/or counseling patient: Coding Level of Care Code 75868 SUB INP/OBS CARE 2/35MIN Diagnoses Painless jaundice R17 Type 2 diabetes mellitus without complication, without long-term current use of insulin E11.9 Diabetes mellitus complication status: without complication 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
[2023-09-14 11:56] LABS: HBSAG NON-REACTIVE (NON-REACTIVE); Hepatitis A Antibody IgM NON-REACTIVE (NON-REACTIVE); Hepatitis B Core Antibody IgM NON-REACTIVE (NON-REACTIVE)
[2023-09-14] MEDS: traMADol HCL 50 MG TABLET PO PRN (12:08)
[2023-09-14] MEDS: MELATONIN 3 MG TAB PO PRN (20:48)
[2023-09-15 06:30] LABS: Hematocrit (blood only) 34.3 % (42.0-52.0); Mean Corpuscular Hemoglobin 31.1 pg (25.0-34.0); Mean Corpuscular Volume 88.9 fL (80.0-100.0); Mean Platelet Volume 11.1 fL (9.4-12.4); Platelet Count 220 K/uL (130-400); RDW Coefficient of Variation 18.1 % (11.5-14.5); RDW Standard Deviation 58.1 fL (36.4-46.3); Red Blood Count 3.86 M/uL (4.70-6.10); White Blood Count 7.82 K/ul (4.8-10.8)
[2023-09-15 06:53] LABS: INR 1.2 (0.9-1.1); Partial Thromboplastin Ratio 3.2; Prothrombin Time 12.8 Seconds (9.0-12.0)
[2023-09-15 07:10] LABS: Albumin Globulin Ratio 1.1 (0.9-2); Albumin Level 3.5 gm/dl (3.4-5.0); BUN Creatinine Ratio 22.4 (10-20); Bilirubin Direct 7.7 mg/dl (0-0.2); Bilirubin,Total 12.2 mg/dl (0.2-1.0); Calcium 9.8 mg/dl (8.6-10.3); Est GFR (Non-African American) 63.9 ml/min; Globulin 3.1 gm/dl (2.5-4.0); Magnesium 1.7 mg/dl (1.7-2.4); Potassium 4.4 mmol/L (3.5-5.1); Total Protein 6.6 gm/dl (6.0-8.3)
[2023-09-15 07:52] LABS: Partial Thromboplastin Time 85 Seconds (21-31)
[2023-09-15 07:53] LABS: ANTI-Xa, UFH(UnfractionatedHep 0.73 IU/ml (0.3-0.7)
--- NOTE | 2023-09-15 12:51 | Discharge Summary ---
Date of Service September 15, 2023 Admission HPI Per Admitting Provider The patient is a 83-year-old male with a past medical history including severe aortic stenosis, status post TAVR 04/20, status post pacemaker, status post pacemaker, prostate cancer, history of right foot osteomyelitis/diabetic foot ulcer, CHF, atrial fibrillation, diabetes mellitus, and hypertension. He presents to the emergency department after the development over the past few days of a painless jaundice, with light-colored stool, dark-colored urine, and weight loss. Principal Diagnosis hyperbilirubinemia Discharge Exam Constitutional WD/WN, vitals as above Respiratory normal respiratory effort, lungs clear to auscultation Cardiovascular RRR, no murmur, no edema Gastrointestinal (Abdomen) normal bowel sounds, soft, nontender, no hepatosplenomegaly Skin jaundice Neurologic PERRL, EOMI, accommodation nl, no face palsy, no dysarthria Psychiatric A+Ox3, euthymic affect Discharge Data Allergies Allergy/AdvReac Type Severity Reaction Status Date / Time ciprofloxacin Allergy Intermediate Dysequilibr Verified 08/09/22 06:21 ium Consultations 09/12/23 21:53 ED Decision to Admit Stat 09/12/23 23:37 Consult Gastroenterology Routine Ordered Studies 09/15/23 06:07 09/15/23 06:07 Abdomen/Pelvis CT 09/12/23 19:38 CLINICAL HISTORY: Reason for exam: jaundice, transaminitis. IMPRESSION: 1. No acute findings in the abdomen or pelvis. 2. Gallbladder sludge but no evidence of cholecystitis or calcified stone. No common bile duct dilatation. No visible choledocholithiasis. 3. Changes in the pancreas suggesting background of chronic pancreatitis. No CT evidence of acute pancreatitis. Electronically signed by: Thanh Mohan M.D. 09/12/23 20:37 PM Cholangiopancreatography MRI 09/13/23 12:31 IMPRESSION: 1. Motion degraded exam. 2. Distended gallbladder with layering sludge versus cholelithiasis. There is no gallbladder wall thickening or pericholecystic fluid to suggest acute cholecystitis. Findings could be correlated with nuclear medicine hepatobiliary scan if of further clinical concern. 3. Mild intrahepatic and extrahepatic biliary ductal dilation without choledocholithiasis identified. There is mild tapered narrowing of the distal common bile duct just proximal to the ampulla. 4. Pancreatic ductal dilation with numerous sidebranches IPMN's measuring up to 11 mm. Possible pancreatic ductal stricture within the pancreatic head. No obstructing mass identified Electronically signed by: Maxim Adkins M.D. 09/13/2023 4:53 PM Orbit X-Ray 09/13/23 13:52 XR orbits for MRI HISTORY: 83 years-old Male Screening for foreign body for MRI IMPRESSION: No opaque foreign body of the orbits. Electronically signed by: Maxim Adkins M.D. 09/13/2023 3:02 PM Vital Signs Temp 36.4 C L 09/15/23 11:38 Pulse 83 09/15/23 11:38 Resp 18 09/15/23 11:38 BP 127/69 09/15/23 11:38 Pulse Ox 96 09/15/23 11:38 O2 Del Method Room Air 09/15/23 11:38 Hospital Course (1) Painless jaundice: Patient presented to ED on 09/12/2023 with chief complaint of painless jaundice. He denied any further symptoms. Total bilirubin on 09/11 was elevated at 11. Review labs from 09/14 demonstrate total bilirubin of 12.2 and direct bilirubin of 7.7. AST/ALT 92/169 and alk phos 289. CTAP from 09/11 was negative for acute pathology. MRCP on 09/12 revealed mild intrahepatic/extrahepatic biliary ductal dilation w/o choledocholithiasis. Mild tapering of distal CBD proximal to ampulla. 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 Possible pancreatic ductal stricture within pancreatic head. No obstructing mass visualized. CEA from 09/13 elevated at 9.4. CA 19-9 and CA 125 are still pending. [facility] accepted patient to their facility for evaluation for EUS/ERCP. On day of transfer, patient was without complaints. On 09/13 he was complaining of back pain and was given tramadol 50mg q6h as needed. He typically takes this at home. He has been eating well and denies chest pain, SOB, or abdominal pain. (2) Diabetes: For history of type 2 diabetes patient was placed on ACCU checks w/ Novolog SSI. His correction factor was tightened to 25 due to hyperglycemia. A1c from 09/12 was 8.4. He was on a heart healthy and carb consistent diet. His home diabetic medications are on hold. Plan Prior to [facility] was contacted who stated that his pacemaker was compatible with MRI machine. He has history of metal in eyes so he underwent Orbit x-ray on 09/12 that was negative for metal FB. While hospitalized patients Eliquis was on hold and he was placed on heparin drip. His metoprolol, entresto, and diltiazem have also been held. He was on Metoprolol tartrate 2.5mg IV q4h. Plan of care was discussed with patient and his at bedside Total Time Total Time Spent Total Time Spent (In Minutes): 50 Discharge Plan Discharge Items Patient Disposition: Transfer Acute Care Hospital Reason For Visit: PAINLESS JAUNDICE, ABNORMAL LFT'S Discharge Diagnosis: Hyperbilirubinemia Activity: Resume your previous activity Non-emergency contact: Primary Care Provider Call non-emergency contact if: you have any medication questions and your symptoms worsen Follow-up/Referrals: Matty Colon MD [Primary Care Provider] - Diet: Carb Consistent or DM2 and Heart Healthy Addtl Attending Provider Instructions: Mr. Murray, You were hospitalized due to a high bilirubin level. You underwent a CT scan of your abdomen that was unrevealing. You then underwent an MRI of your abdomen that showed your hepatic and pancreatic ducts were dilated. Based on these results, you have been transferred to [facility] to be evaluated for a procedure called an ERCP. -Please resume home medications following hospitalization at [facility] per their recommendations. Sincerely, Bethany Thompson PA-C Pending Studies at Discharge: Yes Studies:: pending CA19-9 and CA-125 Stand-Alone Forms: My [facility] Skilled Items Patient informed of condition?: Yes DNR: No Discharge Level of Care: Other Communicable Disease: No Discharge Prognosis: Stable Lines: Peripheral IV Urinary Catheter: No Medications and DC Order Prescriptions: Continued cholecalciferol (vitamin D3) 25 mcg (1,000 unit) tablet 25 mcg PO QAM Rx Instructions: Unable to verify this OTC medication at this date/time. Iodosorb 0.9 % gel 40 g topical Q3D Qty: 40 0RF Rx Instructions: apply to ulcer with dressing changes < - Unable to verify this medication at this date/time. diltiazem HCl 30 mg tablet 0 mg PO BID Rx Instructions: Unable to verify this medication at this date/time. Original Directions: 30mg by mouth twice daily Tradjenta 5 mg tablet 5 mg PO DAILY pravastatin 20 mg tablet 20 mg PO DAILY Rx Instructions: HS Entresto 24-26 mg tablet 1 tab PO BID dutasteride 0.5 mg capsule 0.5 mg PO DAILY Qty: 90 1RF multivitamin Tablet 1 tab PO QAM metformin 500 mg tablet 1,000 mg PO BID Eliquis 5 mg tablet 5 mg PO BID furosemide [Lasix] 20 mg Tablet 0 mg PO DIRECTED PRN (Reason: swelling) Rx Instructions: Unable to verify medication at this date/time. Original Directions: 20mg by mouth as directed as needed for swelling tamsulosin [Flomax] 0.4 mg Capsule 0.4 mg PO DAILY tramadol 50 mg tablet 50 - 100 mg PO Q6H MDD 400mg - daily PRN (Reason: Pain) metoprolol succinate 25 mg tablet extended release 24 hr 37.5 mg PO DAILY Discharge Orders: Discharge Order (Routine); Ordered 09/15/23 Ordered By: Bethany Thompson Admission Data Admit Date/Time: 09/12/23 23:37 Attending Provider: Lenard Ruiz Admit Provider: Emeka Boston Primary Care Provider: Matty Colon Other Providers: Luisito Cuellar; Emeka Boston Other Interventions: Discharge Summary Assessment (RN) Last Done: 09/15/23 14:51 Coding Level of Care Code 85006 INP/OBS DISCH >30 MIN Diagnoses Painless jaundice R17 Type 2 diabetes mellitus without complication, without long-term current use of insulin E11.9 Diabetes mellitus complication status: without complication 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
[2023-09-15 14:27] LABS: ANTI-Xa, UFH(UnfractionatedHep 0.48 IU/ml (0.3-0.7); Partial Thromboplastin Ratio 2.2; Partial Thromboplastin Time 59 Seconds (21-31)
[2023-09-16 10:22] LABS: CA 125 21 U/mL (<35); Cancer Antigen 19-9 3390 U/mL (<34)
== END 2023-09-15 14:52 | disposition short-term general hospital (02) | DRG 442 ==
LOC: ED 18:01 → 2E 23:37 → SUATTDRO 23:37 → 2E 09-13 00:13

== ENCOUNTER 2023-10-30 17:43 | Inpatient (IN) ==
--- NOTE | 2023-10-30 18:00 | Emergency Department Note ---
Impression & Plan Altered mental status ADMIT ED Provider Note HPI: History obtained from patient, bedside RN via EMS report. 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 Per report from the RN at the bedside, patient was exhibiting some acute confusion today at home and was unable to walk back into the house when he was outside with family. On arrival here to the ER the patient does not display any focal deficits but he is a poor historian. He knows that he is in [place] and he is able to tell me his name but he is unable to tell me the date or year. Patient is able to follow commands without issue. He denies any focal complaint of pain on arrival. Patient is tachycardic on arrival . Patient's later arrived and provided further history. She states that she was on the porch with the patient. She states he was sitting out there for about 2 hours from 2 PM to 4 PM and then when she attempted to help him up he was unable to get up out of the chair. Patient stated that he felt too weak to get up. She was concerned that he might be dehydrated, she called family and the patient was still having some difficulty getting up and moving and therefore they contacted EMS for the patient to be assessed. Per patient's daughter who also later arrived at the bedside he was diagnosed recently with pancreatic cancer but is not currently under any treatment as the patient did not want to pursue treatment options. ROS: - Per HPI Differential Diagnosis: Acute ischemic stroke, intracranial hemorrhage, acute dehydration/acute kidney injury, hepatic encephalopathy, meningitis, encephalitis, metastatic brain tumor, amongst other potential pathologies. *Outpatient medications and allergy history reviewed. PE: General: Alert HEENT: Normocephalic, trachea midline Eyes: Extraocular eye movement is intact, no scleral erythema Pulmonary: Clear to auscultation bilaterally, no wheezing Cardio: Tachycardic rate with a regular rhythm GI: Abdomen is soft to palpation : No suprapubic tenderness MSK: No evidence of trauma or malformation of the extremities, no edema Skin: No evidence of rash Neuro: Alert, no focal deficits, patient has equal bilateral grease maker head strength, there is no ataxia on finger-nose testing bilaterally, symmetrical facial movements are appreciated, patient ambulates all extremities spontaneously Psychiatric: Cooperative INDEPENDENT INTERPRETATIONS: wetland scientist: (As interpreted by myself): - An order was placed for continuous cardiac monitoring - Patient was noted to be in atrial fibrillation with a rate of 121 EKG: (As interpreted by myself): Rate: 111 Rhythm: Atrial fibrillation with RVR Intervals: QRS 138 ms, otherwise within normal limits ST changes: No ST elevation Time: 1751 Chest x-ray: (As interpreted by myself): No acute disease Interventions provided in ED: -IV fluid bolus, IV diltiazem Medical Decision Making: IV was established and lab work obtained, patient was placed on manager of allied health services. Lab work shows no leukocytosis, hemoglobin is stable at 13.1, platelet count is within normal limits, CMP shows a mild hyponatremia 133, there is no evidence of acute kidney injury, BUN is slightly elevated at 30. Blood glucose level is mildly elevated at 183, there is a chronic transaminitis that appears improved from previous status post biliary stenting. Initial troponin is mildly elevated at 30.7. Ammonia level is pending. Procalcitonin is pending. Lipase is within normal limits. CT angiography of the head and neck was obtained, there is no evidence of intracranial hemorrhage or any obvious intracranial mass, there is evidence of high-grade stenosis at the right ICA as well as the left vertebral artery. No acute stroke is noted. Patient's transaminitis seems to be improved from previous, his abdomen is soft and nontender on my exam therefore abdominal imaging was not ordered. Patient was given IV fluids and a small bolus of IV diltiazem with good improvement in his A-fib with RVR. Given his altered mental status with mild confusion in addition to A-fib with RVR and mildly elevated troponin, I do feel he would benefit from admission. I discussed the patient's presentation with the on-call hospitalist, Dr. Boston. He is in agreement to admit the patient for further care. Patient's family does state that they were told he may have pancreatic cancer. This was noted during his ERCP according to his at the bedside and he did have a follow-up PET scan. This is thought to be a small lesion and the patient is opting against any aggressive treatment. They state that they did have a palliative care consult recently. They would otherwise like the patient to be admitted for further management and to see if his mentation improves. I discussed all of the above with the family and with the on-call hospitalist and the patient was placed for admission in stable condition. Critical care time: 35 minutes -Stabilization of tachyarrhythmia/atrial fibrillation with RVR requiring IV rate control medications for improvement, time spent at the bedside, interpretation of diagnostic studies including EKG, discussion with other physicians and arrangement of admission Consultants/Discussions held with other healthcare providers: -Hospitalist, Dr. Boston Disposition discussion held by myself with: -Patient and family at the bedside including patient's and patient's daughter Diagnosis: 1. Altered mental status, acute 2. Generalized weakness, acute 3. Transaminitis, chronic 4. Elevated high-sensitivity troponin level, acute 5. Atrial fibrillation with RVR, acute Disposition: Admission Jaiden Tripp DO Emergency Medicine Past Med/Surg History Problem List Altered mental status (Acute) Atrial fibrillation with RVR Altered mental status Hyperbilirubinemia Abnormal LFTs Chronic pancreatitis Painless jaundice (Acute) Encounter for pre-operative examination Severe aortic stenosis S/p TAVR 04/2019 Post-operative state (Acute 07/06/13) Post-operative state (Acute 08/17/13) Enlarged prostate Postoperative urinary retention Prostate nodule Complication, blocked Patrick catheter (Acute) Diarrhea (Acute) Elevated prostate specific antigen (PSA) Primary malignant neoplasm of prostate with high risk of recurrence due to Deangelo score of 8 to 10 and PSA greater than 20 Acute osteomyelitis of toe of right foot (Acute) Diabetic ulcer of toe of right foot (Acute) 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 foot ulcer CHF (congestive heart failure) History of aortic valve repair 04/2019- [facility] Arthritis 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 Medtronic [id number] Micra VR [facility] Serial # [id number] CHECKED REMOTELY 06/15/22 Hyponatremia (Acute) Atrial fibrillation follows w/ Dr Andrade- last visit 06/2022 on Eliquis Diabetes Hypertension Osteoarthritis of left shoulder region Hx of shoulder replacement Medical History CAD (coronary artery disease) 04/2019 cardiac cath showed 30% LAD lesion, large first diagonal branch with 60-70% narrowing, 40% mid segment narrowing of nondominant circumflex, 30% mid and distal RCA lesions Prostate cancer currently being treated, Dr Ashu MAN History of COVID-19 05/2022- fatigue; no hospitalized; resolved Surgical History History of transcatheter aortic valve replacement (TAVR) 04/2019- [facility] Hx of cardiac catheterization 04/2019 [facility]- no stents- aortic valve replacement done at [facility] History of permanent cardiac pacemaker placement Amy [id number] Micra VR TCP Serial # [id number] History of knee replacement Family History Brother Cancer 3 brothers/ prostate Other Family history non-contributory Social History Smoking Status: Unknown if ever smoked Second Hand Exposure: No; Do You Dip or Chew Tobacco: No; Hx Alcohol Use: No Hx Substance Use: No Preferred Language: Uzbek Communication Ability: Effective Visual Impairment: No Limitations Hearing Ability: Normal Pacu Nurse Required: No Beliefs That Will Affect Care: None marital status: Current Living Situation: Spouse Current Living Situation Comment: lives at home with current occupational status: retired 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 Feels Safe at Home: Yes Diet: regular Diet Comment: Diabetic diet caffeine: Yes during the past year weight has: remained stable Assistive Devices: Cane Allergies Allergies Allergy/AdvReac Type Severity Reaction Status Date / Time ciprofloxacin Allergy Intermediate Dysequilibr Verified 08/09/22 06:21 iu Home Meds Home Medications Medication Instructions Recorded Confirmed apixaban 5 mg tablet (Eliquis) 5 mg PO BID 01/19/19 09/13/23 metformin 500 mg tablet 1,000 mg PO BID 01/19/19 09/13/23 multivitamin 1 tab PO QAM 01/19/19 09/13/23 tamsulosin 0.4 mg capsule (Flomax) 0.4 mg PO DAILY 04/06/19 09/13/23 furosemide 20 mg tablet (Lasix) 0 mg PO DIRECTED PRN swelling 05/08/19 09/13/23 diltiazem HCl 30 mg tablet 0 mg PO BID 11/08/21 09/13/23 linagliptin 5 mg tablet (Tradjenta) 5 mg PO DAILY 11/08/21 09/13/23 pravastatin 20 mg tablet 20 mg PO DAILY 11/08/21 09/13/23 sacubitril 24 mg-valsartan 26 mg 1 tab PO BID 11/08/21 09/13/23 tablet (Entresto) cholecalciferol (vitamin D3) 25 25 mcg PO QAM 08/02/22 09/13/23 mcg (1,000 unit) tablet metoprolol succinate 25 mg 37.5 mg PO DAILY 09/13/23 09/13/23 tablet,extended release 24 hr tramadol 50 mg tablet 50 - 100 mg PO Q6H PRN Pain 09/13/23 09/13/23 Previous Rx's Medication Instructions Recorded dutasteride 0.5 mg capsule 0.5 mg PO DAILY #90 caps 10/28/19 cadexomer iodine 0.9 % topical gel 40 g topical Q3D #40 grams 08/02/22 (Iodosorb) Results & Data (ED) Vital Signs Vital Signs - 24 hr 10/30/23 17:38 10/30/23 17:53 10/30/23 18:00 Temperature 37.5 C Temperature Source Axillary Pulse Rate 114 H 119 H 102 H Pulse Rate from SpO2 Sensor 106 H Pulse Rhythm Regular Pulse Strength Normal Respiratory Rate 30 H 24 Respiratory Effort / Characteristics Non-Labored Respiratory Depth Normal Respiratory Pattern Regular Blood Pressure 102/79 102/79 Blood Pressure Mean 86 86 Blood Pressure Position Sitting Pulse Oximetry 94 89 L Oxygen Delivery Method Room Air Sepsis Recent Fever Within 48 Hours Yes Sepsis New/Unexplained Change in Mental Status Yes Sepsis Action Taken by Nursing Physician Notified Laboratory Data 10/30/23 17:55 10/30/23 17:55 Lab Results 10/30/23 10/30/23 10/30/23 Range/Units 17:55 18:00 18:08 WBC 8.98 (4.8-10.8) K/ul RBC 4.05 L (4.70-6.10) M/uL Hgb 13.1 L (14.0-18.0) g/dl POC Hgb 13.3 L (14.0-18.0) g/dl Hct 38.8 L (42.0-52.0) % POC Hct 39 L (42-52) % MCV 95.8 (80.0-100.0) fL MCH 32.3 (25.0-34.0) pg MCHC 33.8 (32.0-36.0) g/dL RDW Std Deviation 50.1 H (36.4-46.3) fL RDW Coeff of Alec 14.2 (11.5-14.5) % Plt Count 142 (130-400) K/uL MPV 9.8 (9.4-12.4) fL Immature Gran % (Auto) 0.4 % Neut % (Auto) 78.7 % Lymph % (Auto) 12.4 % Sioux % (Auto) 7.2 % Eos % (Auto) 1.0 % Baso % (Auto) 0.3 % Neut # (Auto) 7.06 H (1.40-6.50) K/uL Lymph # (Auto) 1.11 L (1.20-3.40) K/uL Sioux # (Auto) 0.65 H (0.11-0.59) K/uL Eos # (Auto) 0.09 (0.00-0.50) K/uL Baso # (Auto) 0.03 (0.00-0.20) K/uL Immature Gran # (Auto) 0.04 (0.01-0.20) K/uL PT 11.1 (9.0-12.0) Seconds INR 1.0 (0.9-1.1) APTT 31 (21-31) Seconds PTT Ratio 1.2 POC Sodium 133 L (135-144) mmol/L Sodium 133 L (136-145) mmol/L POC Potassium 4.8 (3.3-5.0) mmol/L Potassium 4.7 (3.5-5.1) mmol/L POC Chloride 98 L (101-112) mmol/L Chloride 98 (98-107) mmol/L Carbon Dioxide 27 (21-32) mmol/L POC Total CO2 23 L (24-31) mmol/L Anion Gap 8 (3-11) POC Anion Gap 18.0 (16-25) mmol/L POC BUN 29 H (7-18) mg/dl BUN 30 H (6-23) mg/dl Creatinine 0.96 (0.6-1.4) mg/dl POC Creatinine 1.0 (0.6-1.3) mg/dl Est Cr Clr Drug Dosing 67.8 ml/min Est GFR ( Amer) 84.4 ml/min Est GFR (Non-Af Amer) 72.8 ml/min BUN/Creatinine Ratio 31.3 H (10-20) Glucose 183 H (70-99(Fasting)) mg/dl POC Glucose (other) 183 H (70-99) mg/dl Calcium 8.9 (8.6-10.3) mg/dl POC Ioniz Calcium [place] 1.15 (1.12-1.32) mmol/l Total Bilirubin 2.7 H (0.2-1.0) mg/dl AST 268 H (13-39) U/L ALT 233 H (7-52) U/L Alkaline Phosphatase 140 H (34-104) U/L Troponin I High Sens 30.7 H (0-20) pg/ml Total Protein 6.6 (6.0-8.3) gm/dl Albumin 3.9 (3.4-5.0) gm/dl Globulin 2.7 (2.5-4.0) gm/dl Albumin/Globulin Ratio 1.4 (0.9-2) Lipase 23 (11-82) U/L Blood Type O Positive Antibody Screen NEGATIVE Administered Medications Discontinued Medications Diltiazem HCl (Diltiazem Hcl 5 Mg/Ml 5 Ml Vial) 5 mg IV NOW STA Stop: 10/30/23 19:30 Last Admin: 10/30/23 19:56 Dose: Not Given Documented By: ARTHUR Diltiazem HCl (Diltiazem Hcl 5 Mg/Ml 5 Ml Vial) Confirm Administered Dose 25 mg IV .STK-MED ONE Stop: 10/30/23 19:55 Last Admin: 10/30/23 19:58 Dose: 25 mg Documented By: ARTHUR Co-signed By: VALE Sodium Chloride (Nss) 500 mls @ 999 mls/hr IV .Q31M STA Stop: 10/30/23 18:26 Last Admin: 10/30/23 18:42 Dose: 999 mls/hr Documented By: RENITA Sodium Chloride (Nss) 1,000 mls @ 999 mls/hr IV .Q1H1M ONE Stop: 10/30/23 19:29 Last Admin: 10/30/23 18:40 Dose: 999 mls/hr Documented By: [facility] Ioversol (Optiray 320 125ml) 116 ml IV ONCE ONE Stop: 10/30/23 18:13 Last Admin: 10/30/23 18:12 Dose: 116 ml Documented By: [facility] Imaging Data Radiologist's Impression: Chest X-Ray 10/30/23 17:56 XR chest 1V portable HISTORY: 83 years-old Male Chest pain, nonspecific COMPARISON: 08/09/2022 TECHNIQUE: AP view the chest FINDINGS: Cardiac silhouette is enlarged with prosthetic aortic valve. An electronic device projects over the left heart border. Mild hypoinflation. No pneumothorax or pleural effusion. Hiatal hernia. Left shoulder arthroplasty. IMPRESSION: 1. Cardiomegaly without acute process. 2. Hiatal hernia. ACT 112: Negative or not required by law. The above report was generated using voice recognition software. It may contain grammatical, syntax or spelling errors. Electronically signed by: Maxim Adkins M.D. 10/30/2023 6:14 PM Head CTA 10/30/23 17:57 CT angio head wo/w, CT angio neck with con CLINICAL HISTORY: 83 years-old Male with AMS. Acutely altered mental status COMPARISON STUDY: None TECHNIQUE: Unenhanced axial CT scan of the brain is performed. Subsequently, following the IV administration of 116 cc of Optiray, CT angiogram of the head and neck was performed from the skull base to the vertex. Images are reviewed in the axial, sagittal, and coronal planes. 3-D MIPS images are created and assessed. IV contrast was administered without complication. All measurements were obtained according to NASCET criteria. A dose lowering technique was utilized adhering to the principles of ALARA. CT DOSE: 1633.97 mGy.cm FINDINGS: CT BRAIN: There is no acute intracranial hemorrhage, midline shift, hydrocephalus, intracranial mass, territorial ischemia or abnormal extra-axial collections. No abnormal intra-axial or extra-axial enhancement. Involutional changes with chronic microvascular ischemic disease. Cerebral vascular calcifications. Mastoid air cells and middle ear cavities are clear. No calvarial fracture. Paranasal sinuses are clear. CT ANGIOGRAM OF THE HEAD AND NECK: Atherosclerosis of the aorta. Patency of the innominate and image subclavian arteries. There is prominent atherosclerotic plaque of the bilateral carotid bulbs and proximal cervical segments of the internal carotid arteries. There is less than 50% stenosis on the left. 85% stenosis within the proximal right ICA. There is moderate stenosis involving the cavernous, clinoid and supraclinoid segments of the internal carotid arteries secondary to extensive atherosclerosis. Multifocal mild to moderate stenosis noted throughout the middle cerebral arteries. Anterior cerebral arteries are patent. Codominant vertebral arteries. High-grade stenosis at the origin of the left vertebral artery. The right vertebral artery is widely patent. Patent basilar artery. Mild to moderate multifocal stenoses throughout the posterior cerebral arteries. There is no abnormal intracranial enhancement identified. Dural sinuses appear patent. Lung apices appear clear without pneumothorax. Unremarkable soft tissues. Degenerative changes of the spine. IMPRESSION: 1. No acute intracranial abnormality. 2. High-grade stenosis at the origin of the right ICA. 3. High-grade stenosis at the origin of the left vertebral artery. 4. Mild to moderate multifocal stenoses of the intracranial arteries. 5. No arterial occlusion, aneurysm or dissection. ACT 112: Negative or not required by law. The above report was generated using voice recognition software. It may contain grammatical, syntax or spelling errors. Electronically signed by: Maxim Adkins M.D. 10/30/2023 6:46 PM Neck CTA 10/30/23 17:58 CT angio head wo/w, CT angio neck with con CLINICAL HISTORY: 83 years-old Male with AMS. Acutely altered mental status COMPARISON STUDY: None TECHNIQUE: Unenhanced axial CT scan of the brain is performed. Subsequently, following the IV administration of 116 cc of Optiray, CT angiogram of the head and neck was performed from the skull base to the vertex. Images are reviewed in the axial, sagittal, and coronal planes. 3-D MIPS images are created and assessed. IV contrast was administered without complication. All measurements were obtained according to NASCET criteria. A dose lowering technique was utilized adhering to the principles of ALARA. CT DOSE: 1633.97 mGy.cm FINDINGS: CT BRAIN: There is no acute intracranial hemorrhage, midline shift, hydrocephalus, intracranial mass, territorial ischemia or abnormal extra-axial collections. No abnormal intra-axial or extra-axial enhancement. Involutional changes with chronic microvascular ischemic disease. Cerebral vascular calcifications. Mastoid air cells and middle ear cavities are clear. No calvarial fracture. Paranasal sinuses are clear. CT ANGIOGRAM OF THE HEAD AND NECK: Atherosclerosis of the aorta. Patency of the innominate and image subclavian arteries. There is prominent atherosclerotic plaque of the bilateral carotid bulbs and proximal cervical segments of the internal carotid arteries. There is less than 50% stenosis on the left. 85% stenosis within the proximal right ICA. There is moderate stenosis involving the cavernous, clinoid and supraclinoid segments of the internal carotid arteries secondary to extensive atherosclerosis. Multifocal mild to moderate stenosis noted throughout the middle cerebral arteries. Anterior cerebral arteries are patent. Codominant vertebral arteries. High-grade stenosis at the origin of the left vertebral artery. The right vertebral artery is widely patent. Patent basilar artery. Mild to moderate multifocal stenoses throughout the posterior cerebral arteries. There is no abnormal intracranial enhancement identified. Dural sinuses appear patent. Lung apices appear clear without pneumothorax. Unremarkable soft tissues. Degenerative changes of the spine. IMPRESSION: 1. No acute intracranial abnormality. 2. High-grade stenosis at the origin of the right ICA. 3. High-grade stenosis at the origin of the left vertebral artery. 4. Mild to moderate multifocal stenoses of the intracranial arteries. 5. No arterial occlusion, aneurysm or dissection. ACT 112: Negative or not required by law. The above report was generated using voice recognition software. It may contain grammatical, syntax or spelling errors. Electronically signed by: Maxim Adkins M.D. 10/30/2023 6:46 PM Discharge Plan Visit Data Chief Complaint: Altered Mental Status Stated Complaint: UNABLE TO AMBULATE, AB PAIN, ED Provider: Jaiden Tripp Discharge Problem: Altered mental status Forms Stand Alone Forms: My [facility] Prescriptions Prescriptions: No Action cholecalciferol (vitamin D3) 25 mcg (1,000 unit) tablet 25 mcg PO QAM Rx Instructions: Unable to verify this OTC medication at this date/time. Iodosorb 0.9 % gel 40 g topical Q3D Qty: 40 0RF Rx Instructions: apply to ulcer with dressing changes < - Unable to verify this medication at this date/time. diltiazem HCl 30 mg tablet 0 mg PO BID Rx Instructions: Unable to verify this medication at this date/time. Original Directions: 30mg by mouth twice daily Tradjenta 5 mg tablet 5 mg PO DAILY pravastatin 20 mg tablet 20 mg PO DAILY Rx Instructions: HS Entresto 24-26 mg tablet 1 tab PO BID dutasteride 0.5 mg capsule 0.5 mg PO DAILY Qty: 90 1RF multivitamin Tablet 1 tab PO QAM metformin 500 mg tablet 1,000 mg PO BID Eliquis 5 mg tablet 5 mg PO BID furosemide [Lasix] 20 mg Tablet 0 mg PO DIRECTED PRN (Reason: swelling) Rx Instructions: Unable to verify medication at this date/time. Original Directions: 20mg by mouth as directed as needed for swelling tamsulosin [Flomax] 0.4 mg Capsule 0.4 mg PO DAILY tramadol 50 mg tablet 50 - 100 mg PO Q6H MDD 400mg - daily PRN (Reason: Pain) metoprolol succinate 25 mg tablet extended release 24 hr 37.5 mg PO DAILY Referrals Referrals: Matty Colon MD [Primary Care Provider] - Discharge Problem: Altered mental status Qualifiers: Altered mental status type: unspecified Qualified Code(s): R41.82 - Altered mental status, unspecified
[2023-10-30 18:12] LABS: iSTAT Hemoglobin 13.3 g/dl (14.0-18.0); iSTAT Ionized Calcium 1.15 mmol/l (1.12-1.32); iSTAT Potassium 4.8 mmol/L (3.3-5.0)
[2023-10-30] MEDS: OPTIRAY 320 125ml IV ONE (18:12)
[2023-10-30 18:13] LABS: Basophils # (auto) 0.03 K/uL (0.00-0.20); Basophils % (auto) 0.3 %; Eosinophils # (auto) 0.09 K/uL (0.00-0.50); Hematocrit (blood only) 38.8 % (42.0-52.0); Hemoglobin 13.1 g/dl (14.0-18.0); Immature Granulocytes # (auto) 0.04 K/uL (0.01-0.20); Immature Granulocytes % (auto) 0.4 %; Lymphocytes # (auto) 1.11 K/uL (1.20-3.40); Lymphocytes % (auto) 12.4 %; Mean Corpuscular Hemoglobin 32.3 pg (25.0-34.0); Mean Corpuscular Hgb Conc 33.8 g/dL (32.0-36.0); Mean Corpuscular Volume 95.8 fL (80.0-100.0); Mean Platelet Volume 9.8 fL (9.4-12.4); Monocytes # (auto) 0.65 K/uL (0.11-0.59); Monocytes % (auto) 7.2 %; Neutrophils # (auto) 7.06 K/uL (1.40-6.50); Neutrophils % (auto) 78.7 %; Platelet Count 142 K/uL (130-400); RDW Coefficient of Variation 14.2 % (11.5-14.5); RDW Standard Deviation 50.1 fL (36.4-46.3); Red Blood Count 4.05 M/uL (4.70-6.10); White Blood Count 8.98 K/ul (4.8-10.8)
--- NOTE | 2023-10-30 18:17 | XRay Report ---
XR chest 1V portable HISTORY: 83 years-old Male Chest pain, nonspecific COMPARISON: 08/09/2022 TECHNIQUE: AP view the chest FINDINGS: Cardiac silhouette is enlarged with prosthetic aortic valve. An electronic device projects over the l eft heart border. Mild hypoinflation. No pneumothorax or pleural effusion. Hiatal hernia. Left should er arthroplasty. IMPRESSION: 1. Cardiomegaly without acute process. 2. Hiatal hernia. ACT 112: Negative or not required by law. The above report was generated using voice recognition software. It may contain grammatical, syntax o r spelling errors. Electronically signed by: Maxim Adkins M.D. 10/30/2023 6:14 PM
[2023-10-30 18:31] LABS: Albumin Globulin Ratio 1.4 (0.9-2); Albumin Level 3.9 gm/dl (3.4-5.0); BUN Creatinine Ratio 31.3 (10-20); Bilirubin,Total 2.7 mg/dl (0.2-1.0); Calcium 8.9 mg/dl (8.6-10.3); Creatinine Clr Calc Pharmacy 67.8 ml/min; Est GFR (African American) 84.4 ml/min; Est GFR (Non-African American) 72.8 ml/min; Globulin 2.7 gm/dl (2.5-4.0); Potassium 4.7 mmol/L (3.5-5.1); Total Protein 6.6 gm/dl (6.0-8.3)
[2023-10-30 18:35] LABS: Troponin I High Sensitivity 30.7 pg/ml (0-20)
[2023-10-30 18:37] LABS: Partial Thromboplastin Ratio 1.2; Partial Thromboplastin Time 31 Seconds (21-31); Prothrombin Time 11.1 Seconds (9.0-12.0)
[2023-10-30] MEDS: SODIUM CHLORIDE 0.9% 1,000 ML IV ONE (18:40)
[2023-10-30] MEDS: SODIUM CHLORIDE 0.9% 500 ML IV STA (18:42)
--- NOTE | 2023-10-30 18:49 | CT Scan Report ---
CT angio head wo/w, CT angio neck with con CLINICAL HISTORY: 83 years-old Male with AMS. Acutely altered mental status COMPARISON STUDY: None TECHNIQUE: Unenhanced axial CT scan of the brain is performed. Subsequently, following the IV adminis tration of 116 cc of Optiray, CT angiogram of the head and neck was performed from the skull base to the vertex. Images are reviewed in the axial, sagittal, and coronal planes. 3-D MIPS images are creat ed and assessed. IV contrast was administered without complication. All measurements were obtained ac cording to NASCET criteria. A dose lowering technique was utilized adhering to the principles of RACIEL Perea. CT DOSE: 1633.97 mGy.cm FINDINGS: CT BRAIN: There is no acute intracranial hemorrhage, midline shift, hydrocephalus, intracranial mass, territori al ischemia or abnormal extra-axial collections. No abnormal intra-axial or extra-axial enhancement. Involutional changes with chronic microvascular ischemic disease. Cerebral vascular calcifications. Mastoid air cells and middle ear cavities are clear. No calvarial fracture. Paranasal sinuses are claritza ar. CT ANGIOGRAM OF THE HEAD AND NECK: Atherosclerosis of the aorta. Patency of the innominate and image subclavian arteries. There is promi nent atherosclerotic plaque of the bilateral carotid bulbs and proximal cervical segments of the inte rnal carotid arteries. There is less than 50% stenosis on the left. 85% stenosis within the proximal right ICA. There is moderate stenosis involving the cavernous, clinoid and supraclinoid segments of the internal carotid arteries secondary to extensive atherosclerosis. Multifocal mild to moderate stenosis noted throughout the middle cerebral arteries. Anterior cerebral arteries are patent. Codominant vertebral arteries. High-grade stenosis at the origin of the left vertebral artery. The right vertebral artery is widely patent. Patent basilar artery. Mild to moderate multifocal stenoses throughout the posterio r cerebral arteries. There is no abnormal intracranial enhancement identified. Dural sinuses appear p atent. Lung apices appear clear without pneumothorax. Unremarkable soft tissues. Degenerative changes of the spine. IMPRESSION: 1. No acute intracranial abnormality. 2. High-grade stenosis at the origin of the right ICA. 3. High-grade stenosis at the origin of the left vertebral artery. 4. Mild to moderate multifocal stenoses of the intracranial arteries. 5. No arterial occlusion, aneurysm or dissection. ACT 112: Negative or not required by law. The above report was generated using voice recognition software. It may contain grammatical, syntax o r spelling errors. Electronically signed by: Maxim Adkins M.D. 10/30/2023 6:46 PM
--- NOTE | 2023-10-30 19:40 | History & Physical Report ---
Date of Service October 30, 2023 Assessment & Plan (1) Acute UTI: Plan: Altered mental status began around 1600 on 10/29 UA positive on arrival History of prior UTIs Prior UCxs grew Pseudomonas x 3 and Enterococcus faecalis x 1 Cefepime 2000 mg IV q8h Vancomycin 1500 mg IV q12h Patient received IVF bolus in the ED and will continue with LR at 125 mL/hr x 1 L Follow current blood/UCx A.m. CBC, BMP, mag (2) Sepsis: Plan: Urinary source; low-grade fever in the ED + tachycardic + soft BP Procalcitonin WNL Blood cultures ordered, pending Note: due to nationwide shortage and limited hospital availability, 1 blood culture was drawn rather than 2 Lactate ordered (drawn after 1500mL NSS bolus) NSS 1500 mL + LR 1000 mL bolus in the ED 30cc/kg per ideal body weight Antibiotics (as above) (3) Atrial fibrillation with RVR: Plan: A-fib with RVR on arrival Diltiazem 5 mg IV given in the ED Continue Eliquis, diltiazem, and metoprolol Lopressor 5 mg IV q6h as needed for HR >140bpm (4) Altered mental status: Plan: Likely secondary to #1 Initial head imaging on arrival did reveal some high-grade stenosis, but no acute intracranial abnormalities Discussed potential brain MRI at bedside with patient's family, but they would like to defer at this time (5) Elevated troponin: Plan: Troponin 30-->40 on arrival Trend q6h to peak Clinically, patient denies chest pain, SOB, or pleuritic CP Continues telemetry monitoring (6) Diabetes: Plan: Last A1c 8.9% on 09/13/2023 Hold linagliptin, metformin SSI while inpatient BSG ACHS Adjust regimen as needed (7) Pacemaker: (8) Abnormal LFTs: (9) Chronic pancreatitis: (10) Painless jaundice: Plan Disposition: Admit to PCU telemetry DNR/DNI T2DM diet DVT PPx: On Eliquis History of Present Illness Chief Complaint: Altered mental status Primary Care Provider: Matty Colon MD Luís is an 83-year-old male with PMH of HTN, diabetes, atrial fibrillation (on Eliquis), aortic valve repair, CHF, diabetic foot ulcer, osteomyelitis of toe, chronic pancreatitis, and severe aortic stenosis. He presented via EMS on 10/29 for altered mental status. Patient's reported he was sitting outside around 1400 and not eating or drinking much; when patient's attempted to lift the patient around 1600, she was unable to do so. He reports that he is unsure why he is unable to stand, but was feeling dizzy/lightheaded at the time. Patient's reports that he did not exhibit any strokelike symptoms such as slurred speech, facial droop, unilateral deficits. Patient was febrile on EMS arrival. Patient's is unsure about this, believes he may have been warm as he was sitting out in the heat yesterday. 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 Recent PET scan done outpatient; family is currently discussion for palliative care measures. Patient took his regular morning medications today; no recent change in medications. Patient last took his Eliquis last night. Patient denies smoking, tobacco use, and alcohol use. Patient is tachycardic around 102 bpm, hypoxic at 89% on RA, has a low-grade fever at 37.5 C at time of admission. ED course: Diltiazem 5 mg IV NSS 1500 mL IV ROS: Patient endorses fever (however patient's believes this may have been due to sitting out in the heat) dizziness, confusion, and incoherent though process. Patient denies chills, JOHNSON, chest pain, N/V/D, change in urinary/bowel habits, or numbness/tingling/pain in the arms or legs. Allergies Allergy/AdvReac Type Severity Reaction Status Date / Time ciprofloxacin Allergy Intermediate Dysequilibr Verified 10/30/23 21:05 [facility] Home Medications Medication Instructions Recorded Confirmed Type apixaban 5 mg tablet (Eliquis) 5 mg PO BID 01/19/19 10/30/23 History metformin 500 mg tablet 1,000 mg PO BID 01/19/19 10/30/23 History multivitamin 1 tab PO QAM 01/19/19 10/30/23 History tamsulosin 0.4 mg capsule (Flomax) 0.4 mg PO DAILY 04/06/19 10/30/23 History furosemide 20 mg tablet (Lasix) 20 mg PO DIRECTED PRN swelling 05/08/19 10/30/23 History dutasteride 0.5 mg capsule 0.5 mg PO DAILY #90 caps 10/28/19 10/30/23 Rx linagliptin 5 mg tablet (Tradjenta) 5 mg PO DAILY 11/08/21 10/30/23 History pravastatin 20 mg tablet 20 mg PO HS 11/08/21 10/30/23 History sacubitril 24 mg-valsartan 26 mg 1 tab PO BID 11/08/21 10/30/23 History tablet (Entresto) cholecalciferol (vitamin D3) 25 25 mcg PO QAM 08/02/22 10/30/23 History mcg (1,000 unit) tablet metoprolol succinate 25 mg 37.5 mg PO QPM 09/13/23 10/30/23 History tablet,extended release 24 hr tramadol 50 mg tablet 50 - 100 mg PO Q6H PRN Pain 09/13/23 10/30/23 History Past Med/Surg History Problem List Elevated troponin Sepsis Altered mental status (Acute) Atrial fibrillation with RVR Altered mental status Hyperbilirubinemia Abnormal LFTs Chronic pancreatitis Painless jaundice (Acute) Encounter for pre-operative examination Severe aortic stenosis S/p TAVR 04/2019 Post-operative state (Acute 07/06/13) Post-operative state (Acute 08/17/13) Enlarged prostate Postoperative urinary retention Prostate nodule Complication, blocked Patrick catheter (Acute) Diarrhea (Acute) Elevated prostate specific antigen (PSA) Primary malignant neoplasm of prostate with high risk of recurrence due to Deangelo score of 8 to 10 and PSA greater than 20 Acute osteomyelitis of toe of right foot (Acute) Diabetic ulcer of toe of right foot (Acute) 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 foot ulcer CHF (congestive heart failure) History of aortic valve repair 04/2019- [facility] Arthritis 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 Medtronic [id number] Micra VR TCP Serial # [id number]- CHECKED REMOTELY 06/15/22 Hyponatremia (Acute) Atrial fibrillation follows w/ Dr Andrade- last visit 06/2022 on Eliquis Diabetes Hypertension Osteoarthritis of left shoulder region Hx of shoulder replacement Medical History CAD (coronary artery disease) 04/2019 cardiac cath showed 30% LAD lesion, large first diagonal branch with 60-70% narrowing, 40% mid segment narrowing of nondominant circumflex, 30% mid and distal RCA lesions Prostate cancer currently being treated, Dr Ashu MAN History of COVID-19 05/2022- fatigue; no hospitalized; resolved Surgical History History of transcatheter aortic valve replacement (TAVR) 04/2019- [facility] Hx of cardiac catheterization 04/2019 [facility]- no stents- aortic valve replacement done at [facility] History of permanent cardiac pacemaker placement [employer] [id number] Micra VR TCP Serial # [id number] History of knee replacement Family History Brother Cancer 3 brothers/ prostate Other Family history non-contributory Social History Smoking Status: Unknown if ever smoked Second Hand Exposure: No; Do You Dip or Chew Tobacco: No; Hx Alcohol Use: No Hx Substance Use: No Preferred Language: Mauritanian Communication Ability: Effective Visual Impairment: No Limitations Hearing Ability: Normal 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: No Beliefs That Will Affect Care: None marital status: Current Living Situation: Spouse Current Living Situation Comment: lives at home with current occupational status: retired 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 Feels Safe at Home: Yes Diet: regular Diet Comment: Diabetic diet caffeine: Yes during the past year weight has: remained stable Assistive Devices: Cane Review of Systems Review of Systems: See HPI above Physical Exam Physical Exam: General: no acute distress; non-toxic appearing; well-nourished; cooperative; SpO2 89% on RA HEENT: normocephalic, atraumatic; no scleral icterus; PERRLA w/ EOMs intact; vision and hearing grossly intact Neck: supple; no lymphadenopathy; trachea midline Skin: warm, dry without signs of tenting; no cyanosis; no rashes, bruising, lesions, or erythema noted CV: chest wall NTP; RRR; S1/S2 normal; no murmurs/rubs/gallops; pulses intact and symmetric at radial, DP, and PT Lungs: no acute respiratory distress; symmetrical chest wall expansion; clear breath sounds across all lung stewart w/o adventitious sounds; no wheezing ABD: Soft, NTP; BS present; no rebound/guarding; no distention MSK: no tics or fasciculations; no edema noted in the LEs b/l, nonerythematous Neuro: A&Ox3; normal mood and affect; fluent speech; no focal deficits; sensation grossly intact in the LEs b/l Results & Data Results & Data Vital Signs (Past 12 Hours) Vital Signs Temp Pulse Resp BP Pulse Ox O2 Del Method 10/30/23 18:00 102 H 24 102/79 89 L 10/30/23 17:53 119 H 10/30/23 17:38 37.5 C 114 H 30 H 102/79 94 Room Air Laboratory Results Abnormal lab results 10/30/23 10/30/23 Range/Units 17:55 18:00 RBC 4.05 L (4.70-6.10) M/uL Hgb 13.1 L (14.0-18.0) g/dl POC Hgb 13.3 L (14.0-18.0) g/dl Hct 38.8 L (42.0-52.0) % POC Hct 39 L (42-52) % RDW Std Deviation 50.1 H (36.4-46.3) fL Neut # (Auto) 7.06 H (1.40-6.50) K/uL Lymph # (Auto) 1.11 L (1.20-3.40) K/uL [place] # (Auto) 0.65 H (0.11-0.59) K/uL POC Sodium 133 L (135-144) mmol/L Sodium 133 L (136-145) mmol/L POC Chloride 98 L (101-112) mmol/L POC Total CO2 23 L (24-31) mmol/L POC BUN 29 H (7-18) mg/dl BUN 30 H (6-23) mg/dl BUN/Creatinine Ratio 31.3 H (10-20) Glucose 183 H (70-99(Fasting)) mg/dl POC Glucose (other) 183 H (70-99) mg/dl Total Bilirubin 2.7 H (0.2-1.0) mg/dl AST 268 H (13-39) U/L ALT 233 H (7-52) U/L Alkaline Phosphatase 140 H (34-104) U/L Troponin I High Sens 30.7 H (0-20) pg/ml Diagnostic Findings Chest X-Ray 10/30/23 17:56 XR chest 1V portable HISTORY: 83 years-old Male Chest pain, nonspecific COMPARISON: 08/09/2022 TECHNIQUE: AP view the chest FINDINGS: Cardiac silhouette is enlarged with prosthetic aortic valve. An electronic device projects over the left heart border. Mild hypoinflation. No pneumothorax or pleural effusion. Hiatal hernia. Left shoulder arthroplasty. IMPRESSION: 1. Cardiomegaly without acute process. 2. Hiatal hernia. ACT 112: Negative or not required by law. The above report was generated using voice recognition software. It may contain grammatical, syntax or spelling errors. Electronically signed by: Maxim Adkins M.D. 10/30/2023 6:14 PM Head CTA 10/30/23 17:57 CT angio head wo/w, CT angio neck with con CLINICAL HISTORY: 83 years-old Male with AMS. Acutely altered mental status COMPARISON STUDY: None TECHNIQUE: Unenhanced axial CT scan of the brain is performed. Subsequently, following the IV administration of 116 cc of Optiray, CT angiogram of the head and neck was performed from the skull base to the vertex. Images are reviewed in the axial, sagittal, and coronal planes. 3-D MIPS images are created and assessed. IV contrast was administered without complication. All measurements were obtained according to NASCET criteria. A dose lowering technique was utilized adhering to the principles of ALARA. CT DOSE: 1633.97 mGy.cm FINDINGS: CT BRAIN: There is no acute intracranial hemorrhage, midline shift, hydrocephalus, intra cranial mass, territorial ischemia or abnormal extra-axial collections. No abnormal intra-axial or extra-axial enhancement. Involutional changes with chronic microvascular ischemic disease. Cerebral vascular calcifications. Mastoid air cells and middle ear cavities are clear. No calvarial fracture. Paranasal sinuses are clear. CT ANGIOGRAM OF THE HEAD AND NECK: Atherosclerosis of the aorta. Patency of the innominate and image subclavian arteries. There is prominent atherosclerotic plaque of the bilateral carotid bulbs and proximal cervical segments of the internal carotid arteries. There is less than 50% stenosis on the left. 85% stenosis within the proximal right ICA. There is moderate stenosis involving the cavernous, clinoid and supraclinoid segments of the internal carotid arteries secondary to extensive atherosclerosis. Multifocal mild to moderate stenosis noted throughout the middle cerebral arteries. Anterior cerebral arteries are patent. Codominant vertebral arteries. High-grade stenosis at the origin of the left vertebral artery. The right vertebral artery is widely patent. Patent basilar artery. Mild to moderate multifocal stenoses throughout the posterior cerebral arteries. There is no abnormal intracranial enhancement identified. Dural sinuses appear patent. Lung apices appear clear without pneumothorax. Unremarkable soft tissues. Degenerative changes of the spine. IMPRESSION: 1. No acute intracranial abnormality. 2. High-grade stenosis at the origin of the right ICA. 3. High-grade stenosis at the origin of the left vertebral artery. 4. Mild to moderate multifocal stenoses of the intracranial arteries. 5. No arterial occlusion, aneurysm or dissection. ACT 112: Negative or not required by law. The above report was generated using voice recognition software. It may contain grammatical, syntax or spelling errors. Electronically signed by: Maxim Adkins M.D. 10/30/2023 6:46 PM Neck CTA 10/30/23 17:58 CT angio head wo/w, CT angio neck with con CLINICAL HISTORY: 83 years-old Male with AMS. Acutely altered mental status COMPARISON STUDY: None TECHNIQUE: Unenhanced axial CT scan of the brain is performed. Subsequently, following the IV administration of 116 cc of Optiray, CT angiogram of the head and neck was performed from the skull base to the vertex. Images are reviewed in the axial, sagittal, and coronal planes. 3-D MIPS images are created and assessed. IV contrast was administered without complication. All measurements were obtained according to NASCET criteria. A dose lowering technique was utilized adhering to the principles of ALARA. CT DOSE: 1633.97 mGy.cm FINDINGS: CT BRAIN: There is no acute intracranial hemorrhage, midline shift, hydrocephalus, intracranial mass, territorial ischemia or abnormal extra-axial collections. No abnormal intra-axial or extra-axial enhancement. Involutional changes with chronic microvascular ischemic disease. Cerebral vascular calcifications. Mastoid air cells and middle ear cavities are clear. No calvarial fracture. Paranasal sinuses are clear. CT ANGIOGRAM OF THE HEAD AND NECK: Atherosclerosis of the aorta. Patency of the innominate and image subclavian arteries. There is prominent atherosclerotic plaque of the bilateral carotid bulbs and proximal cervical segments of the internal carotid arteries. There is less than 50% stenosis on the left. 85% stenosis within the proximal right ICA. There is moderate stenosis involving the cavernous, clinoid and supraclinoid segments of the internal carotid arteries secondary to extensive atherosclerosis. Multifocal mild to moderate stenosis noted throughout the middle cerebral arteries. Anterior cerebral arteries are patent. Codominant vertebral arteries. High-grade stenosis at the origin of the left vertebral artery. The right vertebral artery is widely patent. Patent basilar artery. Mild to moderate multifocal stenoses throughout the posterior cerebral arteries. There is no abnormal intracranial enhancement identified. Dural sinuses appear patent. Lung apices appear clear without pneumothorax. Unremarkable soft tissues. Degenerative changes of the spine. IMPRESSION: 1. No acute intracranial abnormality. 2. High-grade stenosis at the origin of the right ICA. 3. High-grade stenosis at the origin of the left vertebral artery. 4. Mild to moderate multifocal stenoses of the intracranial arteries. 5. No arterial occlusion, aneurysm or dissection. ACT 112: Negative or not required by law. The above report was generated using voice recognition software. It may contain grammatical, syntax or spelling errors. Electronically signed by: Maxim Adkins M.D. 10/30/2023 6:46 PM ECG Additional Comments: ECG revealed A-fib with RVR at 111 bpm; QTc 394; LBBB (which was present on a prior EKG) Code Status & VTE Plan Code Status DNR/DNI VTE Prophylaxis Plan VTE Prophylaxis will be ordered: Yes Supervising Physician Co-Signing Physician Notes Attending addendum: I have physically seen this patient, have supervised the MARY's activities, and agree with the H&P unless as otherwise noted. Assessment and Plan: Altered mental status- Differential causes including sepsis due to urinary tract infection and/or gallbladder stent complication, and worsening cerebral ischemia, others Acute urinary tract infection- History of previous urinary tract infections with Pseudomonas x 3 and Enterococcus faecalis x 1 Placed on cefepime 2 g IV every 8 hours and vancomycin 1500 mg IV every 12 hours for proper coverage Status post 1500 mL bolus in the ED of normal saline Placed on LR 125 MLS per hour x 1 L Follow urine cultures and blood cultures and sensitivity Follow serial CBC with differential, chemistry profile and magnesium level Chronic pancreatitis/pancreatic cancer/status post gallbladder stent placement at [facility] on 09/19/2023- MRCP at [facility] had shown pancreatic ductal stricture with within the pancreatic head with concern for pancreatic cancer Patient had been transferred to [facility] where stent was placed Total bilirubin 2.7, AST 268, ALT 233, alkaline phosphatase 140 Antibiotics as above Follow serial laboratories as noted Palliative care measures are being discussed with patient at this time Cerebral ischemia- CT scan head, CTA head and neck with high-grade stenosis at origin of right ICA and left vertebral arteries, with mild to moderate multifocal stenoses Would allow blood pressure to remain elevated to maintain perfusion Symptoms are more suggestive of a metabolic encephalopathy Hold Entresto, decrease metoprolol succinate from 37.5 to 12.5 mg p.o. daily, to allow for increased perfusion pressure Atrial fibrillation with RVR/hypertension Received diltiazem 5 mg IV in the ED Continue Eliquis Reduce metoprolol succinate as above Diabetes mellitus- Hold linagliptin and metformin Placed on Accu-Cheks with NovoLog SSI PG Care Time/CCT Total # of Minutes Spent Total Time Spent with Patient: Total time spent is greater than 50% in coordination of care (as documented) at patient's floor/unit and/or counseling patient: Coding [place] [address] INT INP/OBS CARE 3/75MIN Patient Type Established Medical Decision Making High Complexity Diagnoses Acute UTI N39.0 Sepsis A41.9 Atrial fibrillation with RVR I48.91 Altered mental status R41.82 Elevated troponin R79.89 Type 2 diabetes mellitus without complication, without long-term current use of insulin E11.9 Diabetes mellitus complication status: without complication Diabetes mellitus director long term care insulin use: without senior living use Diabetes mellitus type: type 2 Pacemaker Z95.0 Abnormal LFTs R79.89 Chronic pancreatitis K86.1 Painless jaundice R17 (6) Diabetes Diabetes mellitus complication status: without complication Diabetes mellitus senior living insulin use: without senior living use Diabetes mellitus type: type 2 Qualified Code(s): E11.9 - Type 2 diabetes mellitus without complications
[2023-10-30] MEDS: dilTIAZem HCl 5 MG/ML 5 ML VIAL IV STA (19:56)
[2023-10-30] MEDS: dilTIAZem HCl 5 MG/ML 5 ML VIAL IV ONE (19:58)
[2023-10-30] MEDS ORDERED: ONDANSETRON INJ 2 MG/ML 2 ML VIAL IV PRN (20:22)
[2023-10-30] MEDS ORDERED: ACETAMINOPHEN 325 MG TAB PO PRN (20:22)
[2023-10-30 20:28] LABS: Appearance Urine Turbid (Clear); Bacteria Urine Automated 4+ (None Seen); Bilirubin Urine 1+ (Negative); Blood Urine 1+ (Negative); Cast Urine Automated 0-2 /lpf (0-2); Color Urine Dark Yellow; Epithelial Cell Urine Auto 0-2 /hpf (0-2); Glucose Urine UA Negative (Negative); Ketones Urine Negative (Negative); Leukocyte Esterase Urine 3+ (Negative); Nitrite Urine Positive (Negative); Protein Urine 1+ (Negative); Urobilinogen Urine Positive (Negative); WBC Urine Automated >50 /hpf (0-5)
[2023-10-30] MEDS: LACTATED RINGER'S 1,000 ML IV ONE (21:14)
[2023-10-30] MEDS: CEFEPIME 1,000 MG in SYRINGE 0 ML IV STA (21:49)
[2023-10-30] MEDS: APIXABAN 5 MG TABLET PO ONE (21:50)
[2023-10-30] MEDS: PRAVASTATIN SOD 20 MG TAB PO ONE (21:50)
[2023-10-30] MEDS: cefTRIAXone SODIUM 1,000 MG/50 ML BAG IV STA (21:54)
[2023-10-30] MEDS ORDERED: DAPTOmycin 500 MG in SYRINGE 0 ML IV SCH (22:00)
[2023-10-30] MEDS ORDERED: VANCOMYCIN CONSULT ACTIVE PRN (22:01)
[2023-10-30] MEDS: LACTATED RINGER'S 1,000 ML IV SCH (22:28)
[2023-10-30] MEDS: VANCOMYCIN HCL 2,000 MG in SODIUM CHLORIDE 0.9% 500 ML IV STA (22:29)
[2023-10-30] MEDS ORDERED: DEXTROSE 50% 50 ML SYRINGE IV PRN (23:54)
[2023-10-30] MEDS ORDERED: GLUCAGON FOR INJ 1 MG VIAL SQ PRN (23:54)
[2023-10-30] MEDS ORDERED: GLUCOSE 10 TAB/TUBE PO PRN (23:54)
[2023-10-30] MEDS ORDERED: METOPROLOL TARTRATE 1 MG/ML VIAL IV PRN (23:54)
[2023-10-30] MEDS ORDERED: GLUCOSE 40% GEL 15 GM TUBE PO PRN (23:54)
[2023-10-30] MEDS ORDERED: CARBOHYDRATES FOR HYPOGLYCEMIA PO PRN (23:54)
[2023-10-31] MEDS: APIXABAN 5 MG TABLET PO SCH (00:02)
[2023-10-31] MEDS: traMADol HCL 50 MG TABLET PO PRN (00:34)
[2023-10-31] MEDS: INSULIN ASPART PER UNIT CHARGE SC SCH (00:34)
--- OUTSIDE RECORDS SUMMARY | 2023-10-31 03:27 | External Medical Summary | Summary of Care ---
Author Name Unknown Organization [facility] Address [address] [place] [address] Phone [phone] Care Team Providers Care Men'S Furnishings Salesperson Name Role Phone Baliee Colon MD Primary Care Provi caroline Encounter Details Date Type Department Care Team (Late st Contact Info) Description 10/24/2023 10:00 AM EDT Scheduled Telephone Care Coordination and Integration [address] [place], [place] [id number] [facility] General Operations Agent [address] [place] [address] Allergies Active Allergy Reactions Criticality Noted Date Comments Ciprofloxacin 09/24/2023 documented as of this encounter (statuses as of 10/24/2023) Medications Medication Sig Dispensed Refills Start Date [...] mouth every 6 hours as needed. Active Entresto 24-26 MG Oral Tablet Take 1 Tablet by mouth in the morning and 1 Tablet before bedtime. Active Dutasteride 0.5 MG Oral Capsule (Avodart)Indications :BPH with obstruction/lower urinary tract symptoms Take 1 Capsule by mouth in the morning. 90 Capsule 3 06/18/2023 Active dexAMETHasone 4 MG Oral Tablet (Decadron)Indication s:Neoplastic (malignant) related fatigue Take 1 Tablet by mouth daily with breakfast. 20 Tablet 10/07/2023 Active Tamsulosin HCl 0.4 MG Oral Capsule (Flomax)Indications: BPH with obstruction/lower urinary tract symptoms Take 1 Capsule by mouth in the morning. 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 Never true 09/26/19 24 Within the past 12 months, t he food you bought just didn't last and you didn't have money to get more. Never true 09/26/2023 Childcare Answer Date Recorded Do you feel overwhelmed with taking care of a child, family member or friend? No 09/26/2023 Does your family need help f inding childcare? (Household - for ages 0-17 years) Not on file 09/26/2023 Clothing Answer Date Recorded Have you been unable to get clothing when it was really needed? No 09/26/2023 Is your family able to get c lothes or diapers when needed? (Household - for ages 0-17 years) Not on file 09/26/2023 Personal Safety Answer Date Recorded Do you feel unsafe or have concerns for your saf ety? No 09/26/2023 Do you have concerns for you r family's safety? (Household - for ages 0-17 years) Not on file 09/26/2023 Utilities Answer Date Recorded Do you have trouble paying y our heating, water, or electric bill? No 09/26/2023 Is your family able to pay t he heat, water, or electric bill? (Household - for ages 0-17 years) Not on file 09/26/2023 Does your family have access to good internet? (Household - for ages 0-17 years) Not on file 09/26/2023 Employment Status Answer Date Recorded Are you unemployed or without regular income? No 09/26/2023 Does the household have a [facility] source of income? (Household - for ages 0-17 years) Not on file 09/26/2023 Social Connections Answer Date Recorded How often do you feel lonely or isolated from th ose around you? Never 09/26/2023 Financial Resource Strain Answer Date R ecorded Do you have any trouble payi ng for your medications, or do you think you might in the future? No 09/26/2023 Does your family have troubl e paying for medicine? (Household - for ages 0-17 years) Not on file 09/26/2023 Transportation Needs Answer Date Record ed Do you have trouble getting a ride to medical visits or work? (Adult - for ages 18 years and over) Not on file 09/26/2023 Does your family have a hard time getting a ride to doctors visits? (Household - for ages 0-17 years) Not on file 09/26/2023 Has lack of transportation k ept you from medical appointments, meetings, work, or from getting things needed for daily living? Check all that apply. No 09/26/2023 Do you (or your family) have trouble finding or paying for a ride (transportation)? (Household - for ages 0-17 years) Not on file 09/26/2023 Housing Stability Answer Date Recorded Do you currently live in a s helter or have no steady place to sleep at night? No 09/26/2023 Do you think you are at risk of becoming homeless? (Adult - for ages 18 years and over) Not on file 09/26/2023 Does your family worry about paying for your home or becoming homeless? (Household - for ages 0-17 years) Not on file 0 09/26/2023 Are you homeless or worried that you might be in the future? No 09/26/2023 Are you (or your family) hiram eless or worried that you might be in the future? (Household - for ages 0-17 years) Not on file Food Insecurity Answer Date Recorded Do you need food for this week? No 09/26/2023 Are you able to get enough f ood for your family? (Household - for ages 0-17 years) Not on file 09/26/2023 Does your family need food t his week? (Household - for ages 0-17 years) Not on file 09/26/2023 Do you always have enough fo od for your family? (Household - for ages 0-17 years) Not on file 09/26/2023 Sex and Gender Information Value Date Recorded Sex Assigned at Not on file Gender Identity Not on file Sexual Orientation Not on file Job Start Date Occupation Industry Not on file Not on file Not on file documented as of this encounter Progress Notes * [facility] General Operations Agent - 10/24/2023 2:51 PM EDT Telemedicine visit: No [facility] General Operations Agent (NATAN) documentation: CHW christiano call per BETH Sahni CM No answer, left requesting call back to CM documented in this encounter Plan of Treatment Upcoming Encounters Date Type Department Care Team (Latest Contact Info) Description 11/27/2023 9:00 AM EDT Office Visit Palliative Medicine [facility] [address] [place] [address] Chacha Bojorquez MD [address] [place] [address] [place] [address] 01/09/2024 8:39 AM EDT Hospital Encounter OR [facility], Operating Room, [facility] - 4th Floor [address] [place] [address] Patricia Grace MD [address] [place] [address] 01/09/2024 8:39 AM EDT - 01/09/2024 9:17 AM EDT Surgery OR [facility], Operating Room, [facility] - 4th Floor [address] [place] [address] Patricia Grace MD [address] [place] [address] ENDOSCOPIC RETROGRADE CHOLANGIOPANCREATOGRAPHY (ERCP) W/STENT REMOVAL AND EXCHANGE; INC DILATION, GUIDE WIRE AND SPHINCTEROTOMY 02/05/2024 8:15 AM EST Office Visit Urology, [facility] [address] [place] [address] Berny Wakefield MD [address] [place] [address] Scheduled Procedures Name Priority Associated Diagnoses Date/Ti me ENDOSCOPIC RETROGRADE CHOLANGIOPANCREATOGRAPHY (ERCP) W/STENT REMOVAL AND EXCHANGE; INC DILATION, GUIDE WIRE AND SPHINCTEROTOMY Pancreatic adenocarcinoma (HCC) 01/09/2024 8:39 AM EDT Health Maintenance Due Date Last Done Comments Depression Screening 1952 DTaP,Tdap,and Td Vaccines (1 - Tdap) 09/03/1959 Zoster Vaccines (1 of 2) 1990 COVID-19 Vaccine (2022-24 season) 2022 04/05/2021, 11/08/2020, 06/08/2020, Additional history exists Influenza Vaccine (FLU shot) (#1) 2023 01/31/2023, 02/13/2022, 01/13/2021 Pneumococcal Vaccine: 65+ Years Completed 03/01/2014, 04/29/2012 HPV (Gardasil) Vaccine Aged Out No lo nger eligible based on patient's age to complete this topic Hepatitis B Vaccine Aged Out No longe r eligible based on patient's age to complete this topic MENINGOCOCCAL (MENACTRA/MENVEO) Aged Out No longer eligible based on patient's age to complete this topic documented as of this encounter Medical Devices Not on filedocumented as of this encounter Advance Directives Documents on File Type Date Recorded Patient Green Chain Marker Expl anation POL 10/17/2023 signed on 10/15 POLST Care Teams Men'S Furnishings Salesperson Relationship Specialty Start Date End Date Bailee Colon MD [address] [place] [address] [address] PCP - General Family Medicine 06/27/23 documented as of this encounter
--- OUTSIDE RECORDS SUMMARY | 2023-10-31 03:27 | External Medical Summary | Summary of Care ---
Author Name Unknown Organization [facility] Address [address] [place] [address] Phone [phone] Care Team Providers Care Desktop Specialist Name Role Phone Bailee Colon MD Primary Care Provi caroline Encounter Details Date Type Department Care Team (Late st Contact Info) Description 10/22/2023 Population Health External Data Unspecified Department Allergies Active Allergy Reactions Criticality Noted Date Comments Ciprofloxacin 09/24/2023 documented as of this encounter (statuses as of 10/25/2023) Medications Medication Sig Dispensed Refills Start Date [...] as of this encounter (statuses as of 10/25/2023) Active Problems Problem Noted Date Diagnosed Date Pancreatic adenocarcinoma 10/04/2023 Cancer Staging:Clinical stage from 10/04/2023:Stage IB(cT2, cN0, cM0) - Signed by Domi Bains MD on 10/07/2023 Elevated prostate specific antigen (PSA) 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 (Household - for ages [...] 9:00 AM EDT Office Visit Palliative Medicine [facility] [address] [place] [phone] Chacha Bojorquez MD [address] [place] [address] 01/09/2024 8:39 AM EDT Hospital Encounter OR [facility], Operating Room, [facility] - 4th Floor [address] [place] [address] Patricia Grace MD [address] [place] [address] 01/09/2024 8:39 AM EDT - 01/09/2024 9:17 AM EDT Surgery OR [facility], Operating Room, [facility] - 4th Floor [address] [place] [address] Patricia Grace MD [address] [place] [address] ENDOSCOPIC RETROGRADE CHOLANGIOPANCREATOGRAPHY (ERCP) W/STENT REMOVAL AND EXCHANGE; INC DILATION, GUIDE WIRE AND SPHINCTEROTOMY 02/05/2024 8:15 AM EST Office Visit Urology, [facility] [address] [place] [address] Berny Wakefield MD [address] [place] [address] Scheduled Procedures Name Priority Associated Diagnoses Date/Ti [...] Documents on File Type Date Recorded Patient Job Interviewer Expl anation POLST 10/17/2023 signed on 10/15 POLST Care Teams Desktop Specialist Relationship Specialty Start Date End Date Bailee Colon MD [address] [facility] [address] [place] [address] PCP - General Family Medicine 06/27/23 documented as of this encounter
--- OUTSIDE RECORDS SUMMARY | 2023-10-31 03:27 | External Medical Summary | Summary of Care ---
Author Name Unknown Organization [facility] Address [address] [place] [address] Phone [phone] Care Team Providers Care Precision Instrument And Tool Maker Name Role Phone Bailee Colon MD Primary Care Provi caroline Encounter Details Date Type Department Care Team (Late st Contact Info) Description 10/25/2023 Orders Only PATIENT PORTAL DO NOT DELETE THIS DEPT USED BY SARAH OSAGEVIRY [address] Allergies Active Allergy Reactions Criticality Noted Date [...] 09/26/2023 Does the household have a re lar source of income? (Household - for ages [...] 9:00 AM EDT Office Visit Palliative Medicine [facility] [address] [place] [address] Chacha Bojorquez MD [address] [place] [address] 01/09/2024 8:39 AM EDT Hospital Encounter [facility], [facility] - 4[facility] [address] [place] [address] Patricia Grace MD [address] [place] [address] 01/09/2024 8:39 AM EDT - 01/09/2024 9:17 AM EDT Surgery OR [facility], Operating Room, [facility] - 4th Floor [address] [place] [address] Patricia Grace MD [address] [place] [address] ENDOSCOPIC RETROGRADE CHOLANGIOPANCREATOGRAPHY (ERCP) W/STENT REMOVAL AND EXCHANGE; INC DILATION, GUIDE WIRE AND SPHINCTEROTOMY 02/05/2024 8:15 AM EST Office Visit Urology, [facility] [address] [place] [address] Berny Wakefield MD [address] [place] [address] Scheduled Procedures Name Priority Associated Diagnoses Date/Ti [...] Documents on File Type Date Recorded Patient Side Laster Tack Expl anation POLST 10/17/2023 signed on 10/15 POLST Care Teams Precision Instrument And Tool Maker Relationship Specialty Start Date End Date Bailee Colon MD [address] [place] [address] PCP - General Family Medicine 06/27/23 documented as of this encounter
--- OUTSIDE RECORDS SUMMARY | 2023-10-31 03:28 | External Medical Summary | Summary of Care ---
Author Name Unknown Organization [facility] Address [address] [place] [address] Phone [phone] Care Team Providers Care River Boat Captain Name Role Phone Bailee Colon MD Primary Care Provi caroline Reason for Visit * Reason Onset Date Comments Palliative Care Follow-up 10/23/2023 Encounter Details Date Type Department Care Team (Late st Contact Info) Description 10/23/2023 9:30 AM EDT Scheduled Telephone Palliative Medicine, [address]th [place] [address] [place], Nurse Palliative Medicine [address] [address] Arrived Allergies Active Allergy Reactions Criticality Noted Date Comments Ciprofloxacin 09/24/2023 documented as of this encounter (statuses as of 10/23/2023) Medications Medication Sig Dispensed Refills Start Date [...] as of this encounter (statuses as of 10/23/2023) Active Problems Problem Noted Date Diagnosed Date Pancreatic adenocarcinoma 10/04/2023 Cancer Staging:Clinical stage from 10/04/2023:Stage IB(cT2, cN0, cM0) - Signed by Domi Bains MD on 10/07/2023 Elevated prostate specific antigen (PSA) 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 Never true 09/26/19 Within the past 12 months, t he [...] No 09/26/2023 Does the household have a [facility] source [facility] income? (Household - for ages [...] encounter Miscellaneous Notes * Telephone Encounter - Blanca Fraire LPN - 10/23/2023 12:33 PM EDT Patient seen 10/15: ASSESSMENT/PLAN: Luís Murray is a 83 year old male seen in follow-up for goals of care and pain and symptom management. Pancreatic adenocarcinoma, stage I, declines any further treatment - Will continue dexamethasone for another week and check in. If he is doing OK can stop this and see how he does, if wants to continue we can do another week. Will have nursing call to discuss. Recent biliary tract obstruction s/p CBD stent placed in August - Will need f/u with GI in November, will place GI referral and send them a msg again Goals of care - Focus on comfort / QOL - Code status if admitted: DNR (as discussed today) Follow up in 6 weeks. Nurse call in 1 weeks. They are not able to do video visits. Next visit with me. Call to home number Spoke with Lisa He is feeling good on it, and would like to continue Last pill will be on Saturday He is having a really good day today Scheduled f[facility]u for [facility]26 at [facility] Advised to call sooner with any needs documented in this encounter Plan of Treatment Upcoming Encounters Date Type Department Care Team (Latest Contact Info) Description 11/27/2023 9:00 AM EDT Office Visit Palliative Medicine [facility] [address] [place] [address] Chacha Bojorquez MD [address] [place] [place] [address] 01/09/2024 8:39 AM EDT Hospital Encounter OR [facility], Operating Room, [facility] - 4th Floor [address] [place] [address] Patricia Grace MD [address] [place] [address] 01/09/2024 8:39 AM EDT - 01/09/2024 9:17 AM EDT Surgery OR [facility], Operating Room, [facility] - 4th Floor [address] [place] [address] Patricia Grace MD [address] [place] [address] ENDOSCOPIC RETROGRADE CHOLANGIOPANCREATOGRAPHY (ERCP) W/STENT REMOVAL AND EXCHANGE; INC DILATION, GUIDE WIRE AND SPHINCTEROTOMY 02/05/2024 8:15 AM EST Office Visit Urology, [facility] [address] [address] Berny Wakefield MD [address] [place] [address] Scheduled Procedures Name Priority Associated Diagnoses Date/Ti [...] Documents on File Type Date Recorded Patient Christian Science Practitioner Expl anation GHAZALA 10/17/2023 signed on 10/15 POLST Care Teams River Boat Captain Relationship Specialty Start Date End Date Bailee Colon MD [address] [place] [address] PCP - General Family Medicine 06/27/23 documented as of this encounter
--- OUTSIDE RECORDS SUMMARY | 2023-10-31 03:28 | External Medical Summary | Summary of Care ---
Author Name Unknown Organization [facility] Address [address] [place] [address] Phone [phone] Care Team Providers Care Online Program Coordinator Name Role Phone Bailee Colon MD Primary Care Provi caroline Encounter Details Date Type Department Care Team (Late st Contact Info) Description 10/16/2023 Telephone Gastroenterology, [facility] [address] [place] [address] Patricia Grace MD [address] [place] [address] Allergies Active Allergy Reactions Criticality Noted Date Comments Ciprofloxacin 09/24/2023 documented as of this encounter (statuses as of 10/18/2023) Medications Medication Sig Dispensed Refills Start Date [...] as of this encounter (statuses as of 10/18/2023) Active Problems Problem Noted Date Diagnosed Date Pancreatic adenocarcinoma 10/04/2023 Cancer Staging:Clinical stage from 10/04/2023:Stage IB(cT2, cN0, cM0) - Signed by Domi Bains MD on 10/07/2023 Elevated prostate specific antigen (PSA) 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 (Household - for ages [...] encounter Miscellaneous Notes * Telephone Encounter - Claribel Ramos OSA - 10/18/2023 1:33 PM EDT Left message with pt's , she wants to talk with pt and call back. * Telephone Encounter - Mikki Lew RN - 10/18/2023 12:35 PM EDT We could add 01/08 if there are no PPGs or TIFs pending. Thoughts? Mikki Lew RN * Telephone Encounter - Claribel Ramos OSA - 10/16/2023 4:33 PM EDT There is also a tele enc from Dr. Interiano on this patient. [facility] please advise. * Telephone Encounter - Patricia Grace MD - 10/16/2023 2:06 PM EDT Patient had ERCP with plastic biliary stent placed at [facility], needs exchange to metal stent in 2-3 months. Please schedule at [facility], this is not urgent. documented in this encounter Plan of Treatment Upcoming Encounters Date Type Department Care Team (Late st Contact Info) Description 10/23/2023 9:30 AM EDT Scheduled Telephone Palliative Medicine, [facility] [address] [facility] 5th [place] [address] [place], Nurse Palliative Medicine [facility] 5th [address] [facility] [address] 02/05/2024 8:15 AM EST Office Visit Urology, [facility] [address] [facility] [place] [address] Berny Wakefield MD [address] [place] [place] [place] [address] Scheduled Orders Name Type Priority Associated Diagnoses Orde r Schedule ERCP, DIAGNOSTIC, SPECIMEN COLLECTION Procedures Routine Pancreatic adenocarcinoma (HCC) Ordered: 10/16/2023 Health Maintenance Due Date Last Done Comments [...] as of this encounter Visit Diagnoses Diagnosis Pancreatic adenocarcinoma (HCC)- Primary Malignant neoplasm of pancreas, part unspecified documented in this encounter Advance Directives Documents on File Type Date Recorded Patient Briquette Maker Expl anation POLST 10/17/2023 signed on 10/15 POLST Care Teams Online Program Coordinator Relationship Specialty Start Date End Date Bailee Colon MD [address] [place] [address] [place] [address] PCP - General Family Medicine 06/27/23 documented as of this encounter
--- OUTSIDE RECORDS SUMMARY | 2023-10-31 03:28 | External Medical Summary | Summary of Care ---
Author Name Unknown Organization [facility] Address [address] [place] [address] Phone [phone] Care Team Providers Care Software Design Manager Name Role Phone Bailee Colon MD Primary Care Provi caroline Reason for Visit * Reason Onset Date Comments Advice 10/02/2023 Encounter Details Date Type Department Care Team (Late st Contact Info) Description 10/02/2023 Telephone Palliative Medicine [facility] [address] [place] [address] Chacha Bojorquez MD [address] [place] [address] Advice Allergies Active Allergy Reactions Criticality Noted Date Comments Ciprofloxacin 09/24/2023 documented as of this encounter (statuses as of 10/14/2023) Medications Medication Sig Dispensed Refills Start Date [...] as of this encounter (statuses as of 10/14/2023) Active Problems Problem Noted Date Diagnosed Date Pancreatic adenocarcinoma 10/04/2023 Cancer Staging:Clinical stage from 10/04/2023:Stage IB(cT2, cN0, cM0) - Signed by Domi Bains MD on 10/07/2023 Elevated prostate specific antigen (PSA) 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 She stated that they are confused about the lab work. If someone can call her back to discuss. documented in this encounter Plan of Treatment Upcoming Encounters Date Type Department Care Team (Late st Contact Info) Description 10/16/2023 8:00 AM EDT Office Visit Palliative Medicine [facility] [address] [place] [address] Chacha Bojorquez MD [address] [place] [address] [place] [address] 02/05/2024 8:15 AM EST Office Visit Urology, [facility] [address] [facility] [place] [address] Berny Wakefield MD [address] [place] [address] Health Maintenance Due Date Last Done Comments [...] filedocumented as of this encounter Care Teams Software Design Manager Relationship Specialty Start Date End Date Bailee Colon MD [address] [facility] [address] [place] [address], [place] [address] PCP - General Family Medicine 06/27/23 documented as of this encounter
--- OUTSIDE RECORDS SUMMARY | 2023-10-31 03:28 | External Medical Summary | Summary of Care ---
Author Name Unknown Organization [facility] Address [address] [place] [address] Phone [phone] Care Team Providers Care Chlorine Operator Name Role Phone Bailee Colon MD Primary Care Provi caroline Encounter Details Date Type Department Care Team (Late st Contact Info) Description 10/16/2023 Telephone Gastroenterology, [facility] [address] [place] [address] Patricia Grace MD [address] [place] [address] Allergies Active Allergy Reactions Criticality Noted Date Comments Ciprofloxacin 09/24/2023 documented as of this encounter (statuses as of 10/16/2023) Medications Medication Sig Dispensed Refills Start Date [...] as of this encounter (statuses as of 10/16/2023) Active Problems Problem Noted Date Diagnosed Date Pancreatic adenocarcinoma 10/04/2023 Cancer Staging:Clinical stage from 10/04/2023:Stage IB(cT2, cN0, cM0) - Signed by Domi Bains MD on 10/07/2023 Elevated prostate specific antigen (PSA) 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 (Household - for [...] encounter Miscellaneous Notes * Telephone Encounter - Patricia Grace MD - 10/16/2023 2:06 PM EDT Patient had ERCP with plastic biliary stent placed at [facility], needs exchange to metal stent in 2-3 months. Please schedule at [facility], this is not urgent. documented in this encounter Plan of Treatment Upcoming Encounters Date Type Department Care Team (Late st Contact Info) Description 10/23/2023 9:30 AM EDT Scheduled Telephone Palliative Medicine, [address] 5th Floor [place] [address] [place], Nurse Palliative Medicine [address] [facility] [phone] 02/05/2024 8:15 AM EST Office Visit Urology, [facility] [address] [place] [address] Berny Wakefield MD [address] [place] [address] Scheduled Orders Name Type Priority Associated Diagnoses [...] pancreas, part unspecified documented in this encounter Care Teams Chlorine Operator Relationship Specialty Start Date End Date Bailee Colon MD 6 [facility] [place] [address] [place] [address] PCP - General Family Medicine 06/27/23 documented as of this encounter
--- OUTSIDE RECORDS SUMMARY | 2023-10-31 03:28 | External Medical Summary | Summary of Care ---
Author Name Unknown Organization [facility] Address [address] [place] [address] Phone [phone] Care Team Providers Care Nnps Name Role Phone Bailee Colon MD Primary Care Provi caroline Encounter Details Date Type Department Care Team (Late st Contact Info) Description 10/16/2023 Telephone Gastroenterology, [facility] [address] [place] [address] Patricia Grace MD [address] [place] [address] Allergies Active Allergy Reactions Criticality Noted Date [...] the household have a [facility] source of income? (Household - for ages [...] Ramos OSA - 10/18/2023 1:33 PM EDT Images from the original note were not included. Patricia Grace MD You; Mikki Lew RN; Magdalena Lan, OSA56 minutes ago (12:38 PM) I prefer if this is done in November. You can also check Antwon's schedule and add it there if needed. Left message with pt's , she wants [...] enc from Dr. Interiano on this patient. [facility] please advise. * Telephone Encounter - Patricia Grace MD - 10/16/2023 2:06 PM EDT Patient had ERCP with plastic biliary stent placed [place] [facility], needs exchange to metal stent in 2-3 months. Please schedule at [facility], this is not urgent. documented in this encounter Plan of Treatment Upcoming Encounters Date Type Department Care Team (Late st Contact Info) Description 10/23/2023 9:30 AM EDT Scheduled Telephone Palliative Medicine, [facility] 400 [facility] 5th Floor [place] [phone] [place], Nurse Palliative Medicine [facility] 5th 400 [place] [place] [address] 02/05/2024 8:15 AM EST Office Visit Urology, [facility] 132 [facility] [place] [address] eBrny Wakefield MD 27 [facility] [place] [phone] Scheduled Orders Name Type Priority Associated Diagnoses [...] Documents on File Type Date Recorded Patient Drop Worker Expl anation GHAZALA 10/17/2023 signed on 10/15 GHAZALA Care Teams Nnps Relationship Specialty Start Date End Date Bailee Colon MD 6 [facility] [place] [address] [place] [address] PCP - General Family Medicine 06/27/23 documented as of this encounter
--- OUTSIDE RECORDS SUMMARY | 2023-10-31 03:28 | External Medical Summary | Summary of Care ---
Author Name Unknown Organization [facility] Address [address] [place] [address] Phone [phone] Care Team Providers Care Hair Baler Name Role Phone Bailee Colon MD Primary Care Provi caroline Encounter Details Date Type Department Care Team (Late st Contact Info) Description 10/16/2023 Telephone Gastroenterology, [facility] [address] [place] [address] Patricia Grace MD [address] [place] [address] Allergies Active Allergy Reactions Criticality Noted Date [...] the household have a [facility] source of income? (Household - for ages [...] Encounter - Claribel Ramos OSA - 10/18/2023 2:24 PM EDT Spoke to pt's , offered 12/11/23 but that did not work for pt. Nickie'd 01/09/24 at [facility]. * Telephone Encounter - Claribel Ramos OSA [...] enc from Dr. Interiano on this patient. [facility] please advise. * Telephone Encounter - Patricia Grace MD - 10/16/2023 2:06 PM EDT Patient had ERCP with plastic biliary stent placed at [facility], needs exchange to metal stent in 2-3 months. Please schedule at [facility], this is not urgent. documented in this encounter Plan of Treatment Upcoming Encounters Date Type Department Care Team (Latest Contact Info) Description 10/23/2023 9:30 AM EDT Scheduled Telephone Palliative Medicine, [address] 5th Floor [place] [address] [place], Nurse Palliative Medicine [address] 400 [facility] [place] [address] 01/09/2024 9:20 AM EDT Hospital Encounter OR [facility], [facility], [facility] 4[facility] 400 [facility] [place] [address] Patricia Grace MD 132 [facility] [place] [address] 01/09/2024 9:20 AM EDT - 01/09/2024 9:58 AM EDT Surgery OR [facility], Operating Room, [facility] - 4th Floor [address] [place] [address] Patricia Grace MD 132 [facility] [place] [address] ENDOSCOPIC RETROGRADE CHOLANGIOPANCREATOGRAPHY (ERCP) W/STENT REMOVAL AND EXCHANGE; INC DILATION, GUIDE WIRE AND SPHINCTEROTOMY 02/05/2024 8:15 AM EST Office Visit Urology, [facility] 132 [facility] [place] [address] Berny Wakefield MD [address] [place] [address] Scheduled Orders Name Type Priority Associated Diagnoses Orde r Schedule ERCP, DIAGNOSTIC, SPECIMEN COLLECTION Procedures Routine Pancreatic adenocarcinoma (HCC) Ordered: 10/16/2023 Scheduled Procedures Name Priority Associated Diagnoses Date/Ti me ENDOSCOPIC RETROGRADE CHOLANGIOPANCREATOGRAPHY (ERCP) W/STENT REMOVAL AND EXCHANGE; INC DILATION, GUIDE WIRE AND SPHINCTEROTOMY Pancreatic adenocarcinoma (HCC) 01/09/2024 9:20 AM EDT Health Maintenance Due Date Last [...] Primary Malignant neoplasm of pancreas, part unspecified Pancreatic adenocarcinoma (HCC) Malignant neoplasm of pancreas, part unspecified documented in this encounter Advance Directives Documents on File Type Date Recorded Patient Punch Press Operator Helper Expl anation POLST 10/17/2023 signed on 10/15 POLST Care Teams Hair Baler Relationship Specialty Start Date End Date Bailee Colon MD 6 [facility] [address], [place] [address] PCP - General Family Medicine 06/27/23 documented as of this encounter
--- OUTSIDE RECORDS SUMMARY | 2023-10-31 03:28 | External Medical Summary | Summary of Care ---
Author Name Unknown Organization [facility] Address [address] [place] [address] Phone [phone] Care Team Providers Care Supply Chain Manager Name Role Phone Bailee Colon MD Primary Care Provi caroline Encounter Details Date Type Department Care Team (Late st Contact Info) Description 10/16/2023 Telephone Gastroenterology, [facility] [address] [place] [address] Patricia Grace MD [address] [place] [address] Allergies Active Allergy Reactions Criticality Noted Date Comments Ciprofloxacin 09/24/2023 documented as of this encounter (statuses as of 10/22/2023) Medications Medication Sig Dispensed Refills Start Date [...] as of this encounter (statuses as of 10/22/2023) Active Problems Problem Noted Date Diagnosed Date Pancreatic adenocarcinoma 10/04/2023 Cancer Staging:Clinical stage from 10/04/2023:Stage IB(cT2, cN0, cM0) - Signed by Domi Bains MD on 10/07/2023 Elevated prostate specific antigen (PSA) 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 (Household - for [...] as of this encounter Miscellaneous Notes * Addendum Note - Shabana Lew RN - 10/22/2023 5:16 PM EDTAddended by: SHABANA LEW on: 10/22/2023 05:16 PM Modules accepted: Orders * Telephone Encounter - Claribel Ramos OSA - 10/18/2023 2:24 PM EDT Spoke to pt's , offered 12/11/23 but that did not work for pt. Nickie'd 01/09/[address] [facility]. * Telephone Encounter - Claribel Ramos OSA - 10/18/2023 1:33 PM EDT Images from the original note were not included. Patricia Grace MD You; Shabana Lew RN; Magdalena Lan, OSA56 minutes ago (12:38 PM) I prefer if this is done in November. You can also check Antwon's schedule and add it there if needed. Left message with pt's , she wants to talk with pt and call back. * Telephone Encounter - Shabana Lew RN - 10/18/2023 12:35 PM EDT We could add 01/08 if there are no PPGs or TIFs pending. Thoughts? Shabana Lew RN * Telephone Encounter - Claribel Ramos OSA - 10/16/2023 4:33 PM EDT There is also a tele enc from Dr. Interiano on this patient. [facility] please advise. * Telephone Encounter - Patricia Grace MD - 10/16/2023 2:06 PM EDT Patient [place] with [place] [facility] needs exchange to metal stent in 2-3 months. [address] schedule [address] [facility], this is not urgent. documented in this encounter Plan of Treatment Upcoming Encounters Date Type Department Care Team (Latest Contact Info) Description 10/23/2023 9:30 AM EDT Scheduled Telephone Palliative Medicine, [address] 5th Floor [place] [address] [place], Nurse Palliative Medicine [facility] 5th 400 [facility] [place] [address] 01/09/2024 9:20 AM EDT Hospital Encounter OR [facility], Operating Room, [facility] - 4th Floor [address] [place] [address] Patricia Grace MD [facility] [place] [address] 01/09/2024 9:20 AM EDT - 01/09/2024 9:58 AM EDT Surgery OR [facility], Operating Room, [facility] - 4th Floor [address] [place] [address] Patricia Grace MD [facility] [place] [address] ENDOSCOPIC RETROGRADE CHOLANGIOPANCREATOGRAPHY (ERCP) W/STENT REMOVAL AND EXCHANGE; INC DILATION, GUIDE WIRE AND SPHINCTEROTOMY 02/05/2024 8:15 AM EST Office Visit Urology, [facility] [place] [address] Berny Wakefield MD [address] [facility] [place] [address] Scheduled Orders Name Type Priority Associated Diagnoses Orde r Schedule ERCP, DIAGNOSTIC, SPECIMEN COLLECTION Procedures Routine Pancreatic adenocarcinoma (HCC) Ordered: 10/16/2023 HEPATIC FUNCTION PANEL Lab Routine Pancreatic adenocarcinoma (HCC) Expected: 10/22/2023, Expires: 10/21/2024 Scheduled Procedures Name Priority Associated Diagnoses Date/Ti la ENDOSCOPIC RETROGRADE CHOLANGIOPANCREATOGRAPHY (ERCP) W/STENT REMOVAL AND [...] Documents on File Type Date Recorded Patient Relationship Advisor Expl anation POL 10/17/2023 signed on 10/15 POLST Care Teams Supply Chain Manager Relationship Specialty Start Date End Date Bailee Colon MD 6 [facility] [address] [place] [address] PCP - General Family Medicine 06/27/23 documented as of this encounter
--- OUTSIDE RECORDS SUMMARY | 2023-10-31 03:28 | External Medical Summary | Summary of Care ---
Author Name Unknown Organization [facility] Address [address] [place] [address] Phone [phone] Care Team Providers Care Senior Treasury Consultant Name Role Phone Bailee Colon MD Primary Care Provi caroline Encounter Details Date Type Department Care Team (Late st Contact Info) Description 10/16/2023 Telephone Gastroenterology, [facility] [address] [place] [address] Patricia Grace MD [address] [place] [address] Allergies Active Allergy Reactions Criticality Noted Date [...] No 09/26/2023 Does the household have a [facility] source [facility] income? (Household - for [...] encounter Miscellaneous Notes * Telephone Encounter - Mikki Lew RN - 10/18/2023 12:35 PM EDT We could add 01/08 if there are no PPGs or TIFs pending. Thoughts? Mikki Lew RN * Telephone Encounter - Claribel Ramos OSA - 10/16/2023 4:33 PM EDT There is also a tele enc from Dr. Interiano on this patient. [facility] please advise. * Telephone Encounter - Patricia Grace MD - 10/16/2023 2:06 PM EDT Patient had ERCP with plastic biliary stent placed [place] [facility], needs exchange to metal stent in 2-3 months. Please schedule at [facility], this is not urgent. documented in this encounter Plan of Treatment Upcoming Encounters Date Type Department Care Team (Late st Contact Info) Description 10/23/2023 9:30 AM EDT Scheduled Telephone Palliative Medicine, [facility] [address] 5th Floor [place] [address] [place], Nurse Palliative Medicine [facility] [address]th [address] [place], [place] [phone] 02/05/2024 8:15 AM EST Office Visit Urology, [facility] 132 [facility] [place] [address] Berny Wakefield MD 27 [facility] [place] [address] Scheduled Orders Name Type Priority Associated Diagnoses [...] Documents on File Type Date Recorded Patient Claims Adjudicator Expl anation POLST 10/17/2023 signed on 10/15 POLST Care Teams Senior Treasury Consultant Relationship Specialty Start Date End Date Bailee Colon MD 6 [facility] [address] [address] PCP - General Family Medicine 06/27/23 documented as of this encounter
--- OUTSIDE RECORDS SUMMARY | 2023-10-31 03:28 | External Medical Summary | Summary of Care ---
Author Name Unknown Organization [facility] Address [address] [place] [address] Phone [phone] Care Team Providers Care Polisher And Sander Name Role Phone Bailee Colon MD Primary Care Provi caroline Reason for Visit * Reason Onset Date Comments Advice 10/16/2023 Encounter Details Date Type Department Care Team (Late st Contact Info) Description 10/16/2023 Telephone Gastroenterology, [facility] 132 [facility] [place] [address] Dawit Interiano, [address] [place] [address] Advice Allergies Active Allergy Reactions Criticality Noted [...] Does the household have a [facility] source of income? (Household - for [...] encounter Miscellaneous Notes * Telephone Encounter - Dawit Interiano DO - 10/16/2023 3:49 PM EDT The patient had a recent diagnosis of pancreatic cancer, it appears that he needs to have a stent revision performed. Any chance of getting this scheduled in the next week at [facility]. documented in this encounter Plan of Treatment Upcoming Encounters Date Type Department Care Team (Late st Contact Info) Description 10/23/2023 9:30 AM EDT Scheduled Telephone Palliative Medicine, [address] [place] [phone] [place], Nurse Palliative Medicine [address] [place] [address] 02/05/2024 8:15 AM EST [facility] [place] [address] [place] [address] Berny Wakefield MD [address] [place] [phone] Scheduled Orders Name Type Priority Associated Diagnoses Orde r Schedule ERCP W/ STENT EXCHANGE Procedures Routine Pancreatic adenocarcinoma (HCC) Ordered: 10/16/2023 [...] unspecified documented in this encounter Care Teams Polisher And Sander Relationship Specialty Start Date End Date Bailee Colon MD 6 [facility] [address] [place], [place] [address] PCP - General Family Medicine 06/27/23 documented as of this encounter
--- OUTSIDE RECORDS SUMMARY | 2023-10-31 03:28 | External Medical Summary | Continuity of Care Document ---
Author Name Unknown Organization [facility] [address] [facility] Address [address] [place], [place] [id number] Care Team Providers Care Lumber Tripper Name Role Phone Bailee Colon Primary Care Physician [phone] [id number] Date(s): 10/15/23 - 10/15/23 [facility] [address], [address] [place] [address] [phone] Encounter Diagnosis Afib(Discharge Diagnosis) - 10/15/23 Hypertension(Discharge Diagnosis) - 10/15/23 Diastolic CHF(Discharge Diagnosis) - 10/15/23 S/P TAVR (transcatheter aortic valve replacement)(Discharge Diagnosis) - 10/15/23 Pacemaker(Discharge Diagnosis) - 10/15/23 Discharge Disposition: Home or Self Care Attending Physician: DO Andrade Jason D Allergies, Adverse Reactions, Alerts Substance Criticality Severity Reaction Reaction Severity Status ciprofloxacin Dysequilbrium Ac tive Assessment and Plan Extracted from: Title:Cardiology Office Visit Note Author:DO Andrade Jason D Date:10/15/23 1.Afib 2.Diastolic CHF 3.Hypertension 4.Pacemaker 5.S/P TAVR (transcatheter aortic valve replacement) I reviewed his diagnostic studies from his admission at [facility]. His echocardiogram is slightly better with only type II diastolic dysfunction (previously type III) and the degree of mitral and tricuspid regurgitation has improved. Clinically he is stable from a cardiac standpoint. Although his blood pressure is on the lower side he has no orthostatic symptoms. He now would continue his current medical regimen. If he ends up losing weight or starts having lightheadedness or dizziness we will need to reduce his Entresto dose. His pacemaker is functioning normally. He is in chronic atrial fibrillation. He is on anticoagulation and tolerating it without any issues. His TAVR valve is functioning normally as well. He is had no fevers or chills or night sweats with his TAVR valve. Clinically his heart failure symptoms are stable. Will see Rebecca, our nurse practitioner, in 4 months. I will see him in 8 months. Immunizations Given and Recorded Vaccine Date [...] 90 mcg/inh inhalation aerosol Start: 05/02/21 10:12:00 AM EST, 2 puff, inhaled, q6h, Disp# 8.5 g, Refills: 3, [id number] Start Date: 05/02/21 Status: Ordered dexAMETHasone 4 mg oral tablet Start: 10/15/23 9:53:00 AM EDT Start Date: 10/15/23 Status: Ordered dutasteride 0.5 mg oral capsule Start: 07/20/20 11:13:00 AM EDT, 1 cap, PO, Daily, Disp# 30 cap, Refills: 3, Pharmacy: [facility] #[id number] Start Date: 07/20/20 Status: Ordered Eliquis 5 mg oral tablet Start: 03/01/23 9:38:00 AM EST, 1 tab, PO, bid, Disp# 60 tab, Refills: 11, Pharmacy: [id number] Start Date: 03/01/23 Status: Ordered Entresto 24 mg-26 mg oral tablet Start: 04/25/23 11:47:00 AM EST, 1 tab, PO, bid, Disp# 60 tab, Refills: 11, Pharmacy: [facility] #[id number] Start Date: 04/25/23 Status: Ordered Flomax 0.4 mg oral capsule Start: 11/15/20 8:06:00 AM EDT, 1 cap, PO, qAM, Disp# 90 cap, Refills: 3, Pharmacy: [facility] #[id number] Start Date: 11/15/20 Status: Ordered Flonase 50 mcg/inh nasal spray Start: 03/27/23 12:45:00 PM EST, 1 spray, each nostril, Daily, Disp# 16 g, Refills: 3, Pharmacy: [facility] #[id number] Start Date: 03/27/23 Status: Ordered furosemide 20 mg oral tablet Start: 12/26/21 8:58:00 AM EDT, See Instructions, Disp# 90 tab, Refills: 4, as needed for weight gain 2 lbs in 24 hours or 5 lbs in a week, Pharmacy: [id number] Start Date: 12/26/21 Status: Ordered inhaler spacer Start: 10/14/20 11:17:00 AM EDT, See Instructions, Disp# 1 each, dispense 1, Pharmacy: [facility] #[id number] Start Date: 10/14/20 Status: Ordered metFORMIN 500 mg oral tablet Start: 06/03/23 9:33:00 AM EST, See Instructions, Disp# 360 tab, Refills: 1, TAKE 2 TABLETS BY MOUTH WITH NOON MEAL AND WITH EVENING MEAL, Pharmacy: [id number] Start Date: 06/03/23 Status: Ordered metoprolol succinate 25 mg oral tablet, extended release Start: 07/24/23 9:44:00 AM EDT, 1.5 tab, PO, Daily, Disp# 135 tab, Refills: 3, Pharmacy: [facility] #[id number] Start Date: 07/24/23 Status: Ordered multivitamin Start: 07/27/21 8:00:00 AM EDT, 1 tab, PO, Daily Start Date: 07/27/21 Status: Ordered One Touch Finepoint (25G) Lancets Start: 06/26/17 8:54:00 AM EDT, See Instructions, Disp# 1 box, Refills: 6, test daily, Dx : E11.9, Pharmacy: [id number] Start Date: 06/26/17 Status: Ordered One Touch Ultra Test Strips 100 ct Start: 10/27/19 4:37:00 PM EDT, See Instructions, Disp# 100 each, Refills: 6, test daily, Dx: E11.9,Pharmacy: [id number] Start Date: 10/27/19 Status: Ordered One Touch UltraMini Glucose Monitor Start: 06/26/17 8:52:00 AM EDT, See Instructions, Disp# 1 unit, Refills: 0, test daily, Dx : E11.9, Pharmacy: [id number] Start Date: 06/26/17 Status: Ordered pravastatin 20 mg oral tablet Start: 08/28/22 5:41:00 PM EDT, See Instructions, Disp# 90 tab, Refills: 3, TAKE 1 TABLET BY MOUTH EVERYDAY AT BEDTIME, Pharmacy: [id number] Start Date: 08/28/22 Status: Ordered Tradjenta 5 mg oral tablet Start: 09/19/23 8:33:00 AM EDT, See Instructions, Disp# 90 tab, Refills: 3, TAKE 1 TABLET BY MOUTH EVERY DAY, Pharmacy: [id number] Start Date: 09/19/23 Status: Ordered traMADol 50 mg oral tablet Start: 10/02/23 8:03:00 AM EDT, See Instructions, Disp# 120 tab, Refills: 0, 1-2 tab PO q6h for pain not to exceed 400 mg/day, Note to Pharmacy: PDMP verified,, PRN: as needed for pain, Pharmacy: [id number] Start Date: 10/02/23 Status: Ordered Vitamin D3 Start: 07/27/21 8:00:00 AM EDT Start Date: 07/27/21 Status: Ordered Problem [...] Effective Dates Health Status Clinical Service Informant Hypertension Discharge Diagnosis 10/15/23 Diastolic CHF Discharge Diagnosis 10/15/23 Pacemaker Discharge Diagnosis 10/15/23 Afib Discharge Diagnosis 10/15/23 S/P TAVR (transcatheter aortic valve replacement) Discharge Diagnosis 10/15/23 Procedures Procedure Date Related Diagnosis Body Site [...] to oldest [Reference Range]: 1 Patient Weight 95.6 kg (10/15/23 10:01 AM) Heart Rate 80 bpm (10/15/23 10:01 AM) Blood Pressure 104/68mmHg (10/15/23 10:01 AM) BP Location # 1 Right Arm (10/15/23 10:01 AM) Social History Social History Type Response Smoking Status Never smoked cigaret lisandra Sex Male Cardiology Outpatient Note * DO Andrade Jason D: PERFORM Event Display: Cardiology Outpt Note Authored Date: Primary Care Provider MD Isaiah, Bailee Bailey Chief Complaint 4 mon f/u afib tavr cad History of Present Illness The interim he had painless jaundice and was diagnosed with a pancreatic head lesion. With his PET scan it was actually smaller that anticipated. And after reviewing his studies with oncology as well as palliative care he is decided just with palliative care. His jaundice has resolved along with his itching status post biliary stents. He has no chest pain or chest pressure. He denies any lightheadedness or dizziness. He is able to walk from his house out to their garage without limitations. He does walk with a cane. He has no palpitations or fluttering. He denies any bleeding or bruising. He has no dark stools or black stools. Review of Systems PAST MEDICAL HISTORY: 1. Severe aortic stenosis by echo, 03/2019, with preserved left ventricular systolic function, status post TAVR 04/2019. 2. Diabetes mellitus type 2 since 2014. 3. Hypertension. 4. Obesity. 5. Bilateral total knee replacements in 2013. 6. Atrial fibrillation with a rate control strategy. 7. Osteoarthritis. 8. Microalbuminuria. 9. An echocardiogram08/2023 with an EF in the range of 45%; Type 2 DD; mild pulmonary hypertension, normally functioning Edward Mar 29 mm TAVR valve and normal RV systolic function. 10. 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 11. Preoperative cardiac catheterization 04/2019 at [facility] with no significant left main disease, 30% mid LAD lesion; large first diagonal branch with a 60-70% narrowing; 40% mid segment narrowing of a nondominant circumflex; 30% mid and distal RCA lesions; moderate pulmonary hypertension Physical Exam Vitals & Measurements HR:80(Monitored) BP:104/68 SpO2:97% WT:95.600kg(Dosing) WT:95.6kg PHYSICAL EXAMINATION: He is awake, alert, oriented x3, is in no acute distress. HEENT: Mildly reduced carotid upstrokes, no evidence of carotid bruits. Jugular venous pressurecannot be assessed due to his neck size. Lungs clear to auscultation bilaterally, no rales, rhonchi or wheezing. Heart: Irregular rate and rhythm, no appreciable murmurs or rubs. Abdomen: Soft, nontender, obese but much smaller than previously. Extremities: No clubbing, cyanosis or edema. Diagnostic Results Echo TransTHORacic TTE Limited w/ Cont Report Signatures Finalized by Dr. Amada Escobar on 09/18/2023 11:47 AM Promoted to Fellow by Dr. eZus Roberto MD on 09/18/2023 11:18 AM Summary 1. Failed 2D images were enhanced with Definity per lab protocol. 2. Normal left ventricular size and systolic function. 3. Estimated Ejection Fraction 45%. 4. Mild hypokinesis of the apical anteroseptal and inferoseptal left ventricular wall(s) and apex. 5. Grade II diastolic dysfunction of the left ventricle (pseudonormal filling pattern). 6. Biatrial enlargement. 7. Normal right ventricular size and function. 8. The aortic root is not well visualized. 9. s/p bioprosthetic aortic valve (29 mm Mar 3 TAVR) which appears well-seated with appropriate gradients and no significant paravalvular regurgitation. AV velocity 1.66 m/s; AV peak gradient 11 mm Hg ; DI=0.47 Calcuklated MISBAH =1.48 cm sq. 10. Pulmonary arterial systolic pressure is estimated at 35 mmHg. 11. Asymmetric basal septal hypertrophy. 12. Mild tricuspid regurgitation. 13. Normal IVC size with reduced inspiratory collapse. Estimated right atrial pressure is 8 mmHg. 14. No significant pericardial effusion. 15. Compared to prior on date 03/18/2023, mitral regurgitation, tricuspid regurgitation, and diastolic function have improved; LVEF is similar. Assessment/Plan 1.Afib 2.Diastolic CHF 3.Hypertension 4.Pacemaker 5.S/P TAVR (transcatheter aortic valve replacement) I reviewed his diagnostic studies from his admission at [facility]. His echocardiogram is slightly better with only type II diastolic dysfunction (previously type III) and the degree ofmitral and tricuspid regurgitation has improved. Clinically he is stable from a cardiac standpoint. Although his blood pressure is on the lower side he has no orthostatic symptoms. He now would continue his current medical regimen. If he endsup losing weight or starts having lightheadedness or dizziness we will need to reduce his Entresto dose. His pacemaker is functioning normally. He is in chronic atrial fibrillation. He is on anticoagulation and tolerating it without any issues. His TAVR valve is functioning normally as well. He is had no fevers or chills or night sweats with his TAVR valve. Clinically his heart failure symptoms are stable. Will see Rebecca, our nurse practitioner, in 4 months. I will see him in 8 months. Problem List/Past Medical History Ongoing Afib (atherosclerosis) Diastolic CHF Hypertension Incomplete bladder emptying Male urinary stress incontinence Osteoarthritis of knee Pacemaker Persistent proteinuria Prostate cancer S/P TAVR (transcatheter aortic valve replacement) Type 2 diabetes mellitus with diabetic neuropathy, unspecified Venous insufficiency of right leg Vitamin D deficiency Weight disorder Resolved Aortic stenosis Knee pain, right Toe ulcer Procedure/Surgical History Osteomyelitis of right foot| Service Date: 08/09/2022Single Chamber Pacemaker MICRA| Service Date: 05/04/2019Transcatheter aortic valve replacement| Service Date: 04/30/2019Ultrasound - renal| Service Date: 01/30/2019Arthroplasty of kneeCTR - Carpal tunnel release Medications albuterol(Albuterol (Eqv-ProAir HFA) 90 mcg/inh inhalation aerosol), 2 puff, inhaled, q6h, 3 refills amoxicillin-clavulanate(Augmentin 875 mg-125 mg oral tablet), 1 tab, PO, q12h apixaban(Eliquis 5 mg oral tablet), 1 tab, PO, bid cetirizine(ZyrTEC 10 mg oral tablet), 10 mg= 1 tab, PO, bid, PRN cholecalciferol(Vitamin D3) cyclobenzaprine(cyclobenzaprine 5 mg oral tablet), 1 tab, PO, qhs, PRN diabetes supplies(One [...] mg oral tablet), See Instructions, 3 refills metFORMIN(metFORMIN 500 mg oral tablet), See [...] Comments: AUDIT-C score = 0 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 Cancer: Father. Health Status Family Member(s) Electronic Signature on File CC: Bailee Colon MD [address] [place] [id number] Electronically Reviewed/Signed by: Mark Anthony Andrade DO Author Signature Dt/Tm:10/15/2023 10:25 AM Tree Tapping Laborerpit clerk [facility] [place], [facility] [address] [place] [address] JDF Patient Care team information Care Team Personnel Name: Virginia Dougherty Christine A Position: Pharmacist Member Role: Pharmacy - Lifetime Name: SHREYA Green Lynn Position: Physician Income Tax Auditor Exempt - Vasc Surg Member Role: Lifetime Relationship Address: Address: [address] [place] [address] [place] Name: MD Luz, Amada Position: Physician - Card Heart Failure Member Role: Lifetime Relationship Address: Address: [address] [place] [address] [place] Name: MD Isaiah, Bailee Bailey Position: Physician Member Role: Primary Care Provider Address: Address: [address] [place] [address] [place] Name: Virginia Maddox Kyle Position: Pharmacist Member Role: Pharmacy - Lifetime Address: Address: [address] [place] [address] [place] Care Team Related Persons Name: GUNNAR MTZ Address: home [address] [facility] [id number] Name: PARI CARRASCO Address: home [address] [facility] [place] [phone]"
--- OUTSIDE RECORDS SUMMARY | 2023-10-31 03:28 | External Medical Summary | Summary of Care ---
Author Name Unknown Organization [facility] Address [address] [place] [address] Phone [phone] Care Team Providers Care Event Mgr Name Role Phone Bailee Colon MD Primary Care Provi caroline Reason for Visit * Reason Onset Date Comments Advice 10/16/2023 Encounter Details Date Type Department Care Team (Late st Contact Info) Description 10/16/2023 Telephone Gastroenterology, [facility] [address] [facility] [place] [address] Dawit Interiano, [address] [place] [address] Advice Allergies Active Allergy Reactions Criticality Noted [...] No 09/26/2023 Does the household have a [facility] health services[facility] source of income? (Household - for ages [...] Lew RN - 10/18/2023 12:35 PM EDT Please see Dr. Grace's encounter previous to this one. Thanks, Mikki Lew RN * Telephone Encounter - Claribel Ramos OSA - 10/16/2023 4:32 PM EDT There is also a tele enc from Dr. Grace on this pt. [facility] please advise. * Telephone Encounter - Dawit Interiano DO - 10/16/2023 3:49 PM EDT The patient had a recent diagnosis of pancreatic cancer, it appears that he needs to have a stent revision performed. Any chance of getting this scheduled in the next week at [facility]. documented in this encounter Plan of Treatment Upcoming Encounters Date Type Department Care Team (Late st Contact Info) Description 10/23/2023 9:30 AM EDT Scheduled Telephone Palliative Medicine, [facility] [address] [facility] 5th Floor [place] [address] [place], Nurse Palliative Medicine [facility] 5th [address] [facility] [place] [address] 02/05/2024 8:15 AM EST Office Visit Urology, [facility] [address] [facility] [place] [address] Berny Wakefield MD [address] [facility] [place] [phone] Scheduled Orders Name Type Priority Associated Diagnoses [...] Documents on File Type Date Recorded Patient Duco Polisher Expl anation POLST 10/17/2023 signed on 10/15 POLST Care Teams Event Mgr Relationship Specialty Start Date End Date Bailee Colon MD [address] [place] [address], [place] [address] PCP - General Family Medicine 06/27/23 documented as of this encounter
--- OUTSIDE RECORDS SUMMARY | 2023-10-31 03:28 | External Medical Summary | Summary of Care ---
Author Name Unknown Organization [facility] Address [address] [place] [address] Phone [phone] Care Team Providers Care Animal Skinner Name Role Phone Bailee Colon MD Primary Care Provi caroline Reason for Visit * Reason Onset Date Comments Advice 10/16/2023 Encounter Details Date Type Department Care Team (Late st Contact Info) Description 10/16/2023 Telephone Gastroenterology, [facility] [address] [facility] [place] [address] Dawit Interiano, [address] [place] [address] Advice Allergies Active Allergy Reactions Criticality Noted [...] No 09/26/2023 Does the household have a [facility] source of income? (Household - [...] enc from Dr. Grace on this pt. Romina please advise. * Telephone Encounter - Dawit Interiano DO - 10/16/2023 3:49 PM EDT The patient had a recent diagnosis of pancreatic cancer, it appears that he needs to have a stent revision performed. Any chance of getting this scheduled in the next week at [facility]. documented in this encounter Plan of Treatment Upcoming Encounters Date Type Department Care Team (Late st Contact Info) Description 10/23/2023 9:30 AM EDT Scheduled Telephone Palliative Medicine, [facility] [address] [facility] 5th Floor [place] [address] [place], Nurse Palliative Medicine [facility] 5th [address] [facility] [place] [address] 02/05/2024 8:15 AM EST Office Visit Urology, [facility] [address] [facility] [place] [address] Berny Wakefield MD [address] [facility] [place] [address] Scheduled Orders Name Type Priority Associated Diagnoses [...] unspecified documented in this encounter Care Teams Animal Skinner Relationship Specialty Start Date End Date Bailee Colon MD [address] [facility] [address], [place] [address] PCP - General Family Medicine 06/27/23 documented as of this encounter
--- OUTSIDE RECORDS SUMMARY | 2023-10-31 03:28 | External Medical Summary | Summary of Care ---
Author Name Unknown Organization [facility] Address [address] [place] [address] Phone [phone] Care Team Providers Care Labor And Delivery Registered Nurse Name Role Phone Bailee Colon MD Primary Care Provi caroline Reason for Visit * Reason Comments Follow Up Encounter Details Date Type Department Care Team (Late st Contact Info) Description 10/16/2023 8:00 AM EDT Office Visit Palliative Medicine [facility] [address] [place] [phone] Chacha Bojorquez MD [address] [place] [id number] Palliative care encounter*; Pancreatic adenocarcinoma (HCC); DNR (do not resuscitate) Allergies Active Allergy Reactions Criticality Noted Date [...] Date Smoking Tobacco: Never Smokeless Tobacco: Never Tobacco Cessation:Counseling Given: Not Answered Hunger Vital Sign Answer Date Recorded Within [...] Sign Reading Time Taken Comments Blood Pressure 96/61 10/16/2023 8:20 AM EDT Pulse 84 10/16/2023 8:20 AM EDT Temperature 36.3 C (97.3 F) 10/16/2023 8:20 AM ED T Respiratory Rate - - Oxygen Saturation 98% 10/16/2023 8:20 AM EDT Inhaled Oxygen Concentration - - Weight 95.9 kg (211 lb 6.4 oz) 10/16/2023 8:20 A M EDT Height - - Body Mass Index 35.18 06/27/2023 1:50 PM EDT documented in this encounter Patient Instructions * Patient Instructions* Blanca Fraire LPN - 10/16/2023 8:25 AM EDT Our Palliative Medicine Clinic is available Saturday through Saturday during business hours, so we are unavailable on weekends and holidays. Please ensure that you request refills early in the week as itmay take 1-2 days for them to be addressed and filled, for authorizations to be approved, or for the pharmacy to order them if needed. You can contact our office at [phone], which is our clinic in [place], or you can message us on Scripted. If you have an emergency outside of these hours, we recommend calling your primary care clinic, Oncology office, or going to the ER if you have a medical emergency. documented in this encounter Progress Notes * Chacha Bojorquez MD - 10/16/2023 7:58 AM EDT Palliative Medicine Outpatient Progress Note [facility] Palliative Medicine Outreach [address] [place] [address] Name: Luís Murray Date: 10/16/2023 HPI: Luís Murray is a 83 year old male with pancreatic cancer, recently diagnosed, seen in follow-up for goals of care and symptom management. At last visit, they decided to focus on comfort, and we started steroids to help with energy and appetite. Saw Systems Integr[employer] Dr Andrade, who was supportive of him not doing treatment. 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 Had a family meeting, told familyhe did not want chemo or radiation, and they have all been supportive. Had stent on September 18, needs it cleaned in 3 mo likely. They want to keep this locally but are willing to go to [place]. Palliative symptoms: Pain: no Nausea/Vomiting: no Appetite: good Constipation: regular Confusion: no Sleep issues: no Dyspnea: no Mood issues: no Falls: no Other: Examination: BP 96/61 (BP Site: Right Arm, BP Position: Sitting, BP Cuff Size: Regular) | Pulse 84 | Temp 36.3 C (97.3 F) (Tympanic) | Wt 95.9 kg (211 lb 6.4 oz) | SpO2 98% | BMI 35.18 kg/m | BSA 2.1 m Constitutional: no acute distress, chronically ill HENT: normocephalic, atraumatic. Eyes: anicteric, sclera and conjunctiva normal. Neck: no stridor Chest: normal respiratory effort Abdominal: nondistended Extremities: no edema Data Review: External notes reviewed: - Reviewed notes from Dr Wakefield, Urology, PSA level has increased, will f/u in 4 mo and continue medical therapy - Reviewed notes from Rebekah Green, case mx on 10/08, pt clear he does not want to do chemo and wants a good quality of life Lab / Imaging Results: Cr 1.0, normal PSA Results done at [facility]: 17.89 (May 2023) 0.27 (Dec 2022) 0.7 (Aug 2022) Information obtained from and daughter for collateral history Discussion with other team members: I discussed patient with PCP Dr Colon Decision-making Capacity: Does Patient have Decisional Capacity? y Does Patient have a Healthcare Agent? Y Advanced Care Planning (see ACP Tab): AD in EMR: no POLST in EMR: compelted today - see ACP note ASSESSMENT/PLAN: Luís Murray is a 83 year [...] do video visits. Next visit with me. Chacha Bojorquez MD [facility] Palliative Medicine [phone] documented in this encounter Nursing Notes * Austin DoughertyKAY ASSIST - 10/16/2023 8:22 AM EDT Patient identified by name and date of . Do you have any concerns about pain management for today's visit? No Living Will or Advance Directive for Health Care as noted on problem list. My [facility] is a way you can talk to your provider online through e-mail. Would you like to sign up? I can activate it for you? ALREADY ACTIVE BP 96/61 (BP Site: Right Arm, BP Position: Sitting, BP Cuff Size: Regular) | Pulse 84 | Temp 36.3 C (97.3 F) (Tympanic) | Wt 95.9 kg (211 lb 6.4 oz) | SpO2 98% | BMI 35.18 kg/m | BSA 2.1 m Patient was instructed to not get up on the exam table/exam chair until directed and assisted by their provider; patient is to remain seated in the chair/ wheelchair/ exam table/ exam chair for fall prevention and safety reasons. Patient is aware to have assistance to step down off exam table/exam chair with personnel. Patient voiced full comprehension of instructions. documented in this encounter Miscellaneous Notes * ACP (Advance Care Planning) - Chacha Bojorquez MD - 10/16/2023 10:37 AM EDT Images from the original note were not included. Advance Care Planning Patient-centered Communication 10/16/2023 The patient/surrogate voluntarily agreed to participate in advance care planning discussion. They were advised that this is a separate service which may incur out of pocket cost in the form of copayment and/or deductibles. Location: Clinic Individual(s) present for conversation: Patient, Spouse, and Daughter(s) Decisions Synopsis SmartLink Most Recent Value Past ~10 years 10/16/2023 10:38 Decisions CPR decision: Declines CPR 10/16/2023 Declines CPR Intubation/Mechanical Ventilation decision: Declines Intubation/mechanical ventilation 10/16/2023 Declines Intubation/mechanical ventilation Additional Comments Discerning What Matters Most to the Patient: Synopsis SmartLink Most Recent Value Past ~10 years 10/16/2023 10:38 Discerning What Matters Most to the Patient Their current SYMPTOMS include: Pain 10/16/2023 Pain Was PROGNOSIS discussed? No 10/16/2023 No Source: Content from Respecting Choices Program Aligning Care With What Matters Most: Synopsis SmartLink Most Recent Value Past ~10 years 10/16/2023 10:38 Aligning Care With What Matters Most Interventions/Choices: CPR;Intubation/mechanical ventilation 10/16/2023 CPR;Intubation/mechanical ventilation Rationale for Decisions Asked permission to discuss ACP Reviewed 3 pathways of care - full vs limited vs comfort. He is ok with limited tx for now, but if declines wants to be comfortable. Goal is to pass away at home. Reviewed CPR and poor success rates in setting of serious illness. He is clear he is a DNR He is ok with LIMITED tx He is ok with abx for comfort Does not want artificial nutrition, ok with IV hydration POLST completed, original given to patient, copy taken to be put into EMR under ACP docs but also scanned into Chart Review --> Scans Source: Content from [employer]ing Choices Program 18 minutes spent in direct [id number] discussion today, Chacha Bojorquez MD documented in this encounter Plan of Treatment Upcoming Encounters Date Type Department Care Team (Late st Contact Info) Description 02/05/2024 8:15 AM EST Office Visit Urology, [facility] [address] [facility] [place] [address] Berny Wakefield MD [address] [place] [address] [place] [address] Health Maintenance Due Date [...] as of this encounter Visit Diagnoses Diagnosis Palliative care encounter- Primary Encounter for palliative care Pancreatic adenocarcinoma (HCC) Malignant neoplasm of pancreas, part unspecified DNR (do not resuscitate) Do not resuscitate status documented in this encounter Care Teams Labor And Delivery Registered Nurse Relationship Specialty Start Date End Date Bialee Colon MD [facility] [address] [place] [address] PCP - General Family Medicine 06/27/23 documented as of this encounter"
--- OUTSIDE RECORDS SUMMARY | 2023-10-31 03:28 | External Medical Summary | Summary of Care ---
Author Name Unknown Organization [facility] Address [address] [place] [address] Phone [phone] Care Team Providers Care Accredited Farm Manager Name Role Phone Bailee Colon MD Primary Care Provi caroline Encounter Details Date Type Department Care Team (Late st Contact Info) Description 10/16/2023 Telephone Gastroenterology, [facility] [address] [place] [address] Patricia Grace MD [address] [place] [phone] Allergies Active Allergy Reactions Criticality Noted Date [...] No 09/26/2023 Does the household have a [facility] source [facility] income? (Household - for [...] enc from Dr. Interiano on this patient. Located Within [facility] please advise. * Telephone Encounter - Patricia Grace MD - 10/16/2023 2:06 PM EDT Patient had ERCP with plastic biliary stent placed at [facility], needs exchange to metal stent in 2-3 months. Please schedule at [facility], this is not urgent. documented in this encounter Plan of Treatment Upcoming Encounters Date Type Department Care Team (Late st Contact Info) Description 10/23/2023 9:30 AM EDT Scheduled Telephone Palliative Medicine, [facility] [address] [facility] 5th Floor [place] [address] [place], Nurse Palliative Medicine [facility] 5th [address] [facility] [place] [phone] 02/05/2024 8:15 AM EST Office Visit Urology, [facility] [address] [facility] [place] [address] Berny Wakefield MD [address] [facility] [place] [phone] Scheduled Orders Name Type Priority Associated Diagnoses [...] unspecified documented in this encounter Care Teams Accredited Farm Manager Relationship Specialty Start Date End Date Bailee Colon MD [address] [place] [address] Dr Portillo [address] [place] [address] PCP - General Family Medicine 06/27/23 documented as of this encounter
--- OUTSIDE RECORDS SUMMARY | 2023-10-31 03:29 | External Medical Summary | Summary of Care ---
Author Name Unknown Organization [facility] Address [address] [place] [address] Phone [phone] Care Team Providers Care Radio Communications Superintendent Name Role Phone Bailee Colon MD Primary Care Provi caroline Reason for Visit * Reason Onset Date Comments Appointment 10/09/2023 Encounter Details Date Type Department Care Team (Late st Contact Info) Description 10/09/2023 Telephone Urology, [facility] [address] [place] [address] Services, Scheduling [address] [place] [address] Appointment Allergies Active Allergy Reactions Criticality Noted Date Comments Ciprofloxacin 09/24/2023 documented as of this encounter (statuses as of 10/09/2023) Medications Medication Sig Dispensed Refills Start Date [...] daily with breakfast. 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 * Telephone Encounter - Terri Ramos OSA - 10/09/2023 9:02 AM EDT Patient is asking if could call him for his appointment on 10/13 to go over psa results instead of him coming in per he is having health issues and has a difficult time coming in documented in this encounter Plan of Treatment Upcoming Encounters Date Type Department Care Team (Late st Contact Info) Description 10/14/2023 8:15 AM EDT Office Visit Urology, [facility] [address] [facility] [place] [address] Berny Wakefield MD [address] [place] [address] 10/16/2023 8:00 AM EDT Office Visit Palliative Medicine [facility] [address] [facility] [phone] Chacha Bojorquez MD [address] [place] [address] 10/18/2023 10:30 AM EDT Office Visit Hematology/Oncology [facility] [address] [facility] [place] [address] Domi Bains MD [address] [place] [address] Health Maintenance Due Date Last Done Comments [...] filedocumented as of this encounter Care Teams Radio Communications Superintendent Relationship Specialty Start Date End Date Bailee Colon MD [address] [facility] [place] [address] [address] PCP - General Family Medicine 06/27/23 documented as of this encounter
--- OUTSIDE RECORDS SUMMARY | 2023-10-31 03:29 | External Medical Summary | Summary of Care ---
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 Name Role Phone Bailee Colon MD Primary Care Provi caroline Reason for Referral * Precert (Within 24 hrs (call dept; emergent)) - Pending Review Specialty Diagnoses / Procedures Referred By Contac t Referred To Contact Radiology Diagnoses Pancreatic adenocarcinoma (HCC) [facility] MD [address] [place] [phone] Referral ID Status Reason Start Date Expiration Date V isits Requested Visits Authorized [id number] Pending Review 10/04/2023 999 999 * Precert (Within 24 hrs (call dept; emergent)) - Pending Review Specialty Diagnoses / Procedures Referred By Contac t Referred To Contact Radiology Diagnoses Pancreatic adenocarcinoma (HCC) Procedures PET CT SKULL BASE TO MID-THIGH FDG Domi Bains MD [address] [place] [phone] Referral ID Status Reason Start Date Expiration Date V isits Requested Visits Authorized [id number] Pending Review 10/04/2023 999 999 Reason for Visit * Reason Comments NEW PATIENT MANUFACTURER'S REPRESENTATIVE * Evaluate & Treat - Unlimited Visits (Within 10 days (routine)) - Authorized Specialty Diagnoses / Procedures Referred By Contac t Referred To Contact Hematology/Oncology / Hematology Oncology Diagnoses Pancreatic mass Pancreatic adenocarcinoma (HCC) Bailee Colon MD [address] [facility] [address] [place] [address], [place] [address] Referral ID Status Reason Start Date Expiration Date Visits Requested Visits Authorized [id number] Authorized Specialty Services Required 09/26/2023 999 999 Encounter Details Date Type Department Care Team (Late st Contact Info) Description 10/04/2023 10:30 AM EDT Office Visit Hematology/Oncology [facility] [place] [address] [facility], [place] [id number] Domi Bains MD [address] [place] [address] [place] [phone] Pancreatic adenocarcinoma (HCC)* Allergies Active Allergy Reactions Criticality Noted Date Comments Ciprofloxacin 09/24/2023 documented as of this encounter (statuses as of 10/07/2023) Medications Medication Sig Dispensed Refills Start Date [...] as of this encounter (statuses as of 10/07/2023) Active Problems Problem Noted Date Diagnosed Date Pancreatic adenocarcinoma 10/04/2023 Cancer Staging:Clinical stage from 10/04/2023:Stage IB(cT2, cN0, cM0) - Signed by Domi Bains MD on 10/07/2023 Elevated prostate specific antigen (PSA) 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 Dermatitis 04/03/2006 documented as of this encounter (statuses as of 10/07/2023) Social History Tobacco Use Types Packs/Day Years [...] Sign Reading Time Taken Comments Blood Pressure 111/70 10/04/2023 10:45 AM EDT Pulse 95 10/04/2023 10:45 AM EDT Temperature 35.7 C (96.2 F) 10/04/2023 10:45 AM E DT Respiratory Rate - - Oxygen Saturation 93% 10/04/2023 10:45 AM EDT Inhaled Oxygen Concentration - - Weight 96 kg (211 lb 11.2 oz) 10/04/2023 10:45 A M EDT Height - - Body Mass Index 35.23 06/27/2023 1:50 PM EDT documented in this encounter Progress Notes * Domi Bains MD - 10/04/2023 2:28 PM EDT Chief Complaint Patient presents with NEW PATIENT MANUFACTURER'S REPRESENTATIVE Code Status: FULL CODE Primary Care Physician: MD Colon Ravishankar E Contact: Lisa () [phone] History of Presenting Illness Luís Murray is a 83 year old male presents for medical oncology consultation due to recent diagnosis of pancreatic cancer. He is accompanied by his , daughter and son-in-law. His medical history significant for CAD, HFpEF, A-fib s/p pacemaker, s/p TAVR, postop LBBB, T2DM, HTN, prostate cancer (on hormonal therapy). He had presented to [facility] with jaundice. He states that he had not noticed any change and was in the usual state of health until 09/10/2023, when he had gone to his alejo and subsequently his chiropractor who both mentioned yellowing of his skin tone. He have been having somegeneralized itching, vague abdominal pain, fatigue as well dark colored urine and pale- colored stools.starting 07/2023. 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 Ambulates independently with periodic use of a cane. No Etoh, tob or illicit drug use. Abnormal labs: T. bili 11.7, D bili 7, Alk phos > 200. ALT 230, AST 124. CT abdomen showed normal gallbladder with no CBD dilation. MRCP showed proximal ductal narrowing at the level of ampulla. He was then transferred to [facility] for further workup of painless jaundice, was found to have a large pancreatic head mass. GI was consulted and he underwent inpatient ERCP, EUS +/- ERCP on 09/18/2023 Pathology: 09/18/2023 : Pancreas, head, Endoscopic FNA Core: Positive for malignant cells, adenocarcinoma . Thesample was adequate for evaluation and shows a fibrotic stroma with infiltrative malignant glands. Immunohistochemistry was performed and the lesional cells are negative for NKX3.1, thus excluding prostatic primary. The findings are consistent with an adenocarcinoma with mucinous features. PMH: Patient Active Problem List Diagnosis Dermatitis Elevated prostate specific antigen (PSA) BPH with obstruction/lower urinary tract symptoms Pancreatic adenocarcinoma (HCC) Current Outpatient Medications Medication Sig Dispense Refill [...] 1 and a half Tablet before bedtime. Furosemide 20 MG Oral Tablet (Lasix) Take 1 Tablet by mouth in the morning. Pravastatin Sodium 20 MG Oral Tablet (Pravachol) Take 1 Tablet by mouth in the morning. traMADol HCl 50 MG Oral Tablet (Ultram) Take 1 Tablet by mouth every 6 hours as needed. Tamsulosin HCl 0.4 MG Oral Capsule (Flomax) Take 1 Capsule by mouth in the morning. 90 Capsule 3 Entresto 24-26 MG Oral Tablet Take 1 Tablet by mouth in the morning and 1 Tablet before bedtime. Dutasteride 0.5 MG Oral Capsule (Avodart) Take 1 Capsule by mouth in the morning. 90 Capsule 3 No current facility-administered medications for this visit. Review of patient's allergies indicates: Allergen Reactions Ciprofloxacin Review of Systems Constitutional: Positive for activity change, appetite change, fatigue and unexpected weight change. HENT: Negative. Eyes: Negative. Respiratory: Negative. Cardiovascular: Negative. Gastrointestinal: Positive for abdominal pain and nausea. Endocrine: Negative. Genitourinary: Negative. Musculoskeletal: Positive for back pain. Skin: Positive for color change. Allergic/Immunologic: Negative. Neurological: Negative. Hematological: Negative. Psychiatric/Behavioral: Negative. Objective BP 111/70 (BP Site: Left Arm, BP Position: Sitting, BP Cuff Size: Large) | Pulse 95 | Temp 35.7 C(96.2 F) (Tympanic) | Wt 96 kg (211 lb 11.2 oz) | SpO2 93% | BMI 35.23 kg/m | BSA 2.1 m Physical Exam Constitutional: Appearance: Normal appearance. He is normal weight. HENT: Head: Normocephalic and atraumatic. Nose: Nose normal. No congestion or rhinorrhea. Mouth/Throat: Mouth: Mucous membranes are moist. Pharynx: Oropharynx is clear. No oropharyngeal exudate or posterior oropharyngeal erythema. Eyes: General: Scleral icterus present. Extraocular Movements: Extraocular movements intact. Conjunctiva/sclera: Conjunctivae normal. Pupils: Pupils are equal, round, and reactive to light. Cardiovascular: Rate and Rhythm: Normal rate and regular rhythm. Pulses: Normal pulses. Heart sounds: Normal heart sounds. Pulmonary: Effort: Pulmonary effort is normal. Breath sounds: Normal breath sounds. Abdominal: General: Bowel sounds are normal. There is no distension. Palpations: Abdomen is soft. There is no mass. Tenderness: There is no abdominal tenderness. There is no guarding. Musculoskeletal: General: Normal range of motion. Cervical back: Normal range of motion and neck supple. No rigidity or tenderness. Lymphadenopathy: Cervical: No cervical adenopathy. Skin: Coloration: Skin is jaundiced. Neurological: General: No focal deficit present. Mental Status: He is alert and oriented to person, place, and time. Psychiatric: Mood and Affect: Mood normal. Behavior: Behavior normal. ASSESSMENT/PLAN: Luís Murray is a 83 year old male presents for medical oncology consultation due to recent diagnosis of pancreatic cancer (09/18/2023). He is accompanied by his ,daughter and son-in-law.His medical history significant for CAD, HFpEF, A-fib s/p pacemaker, s/p TAVR, postop LBBB, T2DM, HTN, prostate cancer (on hormonal therapy). He had presented to [facility] with jaundice. He states that he had not noticed any change and was in the usual state of health until 09/10/2023, when he had gone to his alejo and subsequently his chiropractor who both mentioned yellowing of his skin tone. He have been having somegeneralized itching, vague abdominal pain, fatigue as well dark colored urine and pale- colored stools.starting 07/2023. 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 Ambulates independently with periodic use of a cane. No Etoh, tob or illicit drug use. Abnormal labs: T. bili 11.7, D bili 7, Alk phos > 200. ALT 230, AST 124. CT abdomen showed normal gallbladder with no CBD dilation. MRCP showed proximal ductal narrowing at the level of ampulla. He was then transferred to [facility] for further workup of painless jaundice, was found to have a large pancreatic head mass 22 x 17 mm with distal CBD stricture that needed sphincterotomy with stent placement, with significant improvement in jaundice. GI was consulted and he underwent inpatient ERCP, EUS +/- ERCP on 09/18/2023 Pathology: 09/18/2023 : Pancreas, head, Endoscopic FNA Core: Positive for malignant cells, adenocarcinoma . Thesample was adequate for evaluation and shows a fibrotic stroma with infiltrative malignant glands. Immunohistochemistry was performed and the lesional cells are negative for NKX3.1, thus excluding prostatic primary. The findings are consistent with an adenocarcinoma with mucinous features. Was found to have urine culture + at discharge with dysuria and was discharged on macrobid pending culture results. Culture came back intermediate sensitivity to this and he reports ongoing dysuria and intolerance to macrobid. He was switched to alternative antibiotic by his PCP, was started on Augmentin. 875 mg po bid x 5 days. ECOG =1 Jaundice almost resolved after the stent placement on 09/18/2023. Excellent family support + Pt seen by palliative care earlier this week. I had a detailed discussion with the patient and his family, for a comprehensive discussion of diagnosis, prognosis, treatment options (chemo, surgery, radiation), general outcome predictors with or without systemic treatment, benefits as well as side effects of the systemic chemotherapy options ( F OLFIRINOX vs FOLFOX vs Dodge-Abraxane) discussed in detail. Pancreatic adenocarcinoma (HCC) (Primary) - CBC WITH WBC DIFFERENTIAL - HEPATITIS B SURFACE ANTIBODY - HEPATITIS B SURFACE ANTIGEN - HEPATITIS B CORE ANTIBODIES IGG AND IGM - HEPATIC FUNCTION PANEL - CA 19-9 - CEA - PET CT SKULL BASE TO MID-THIGH FDG - IR VENOUS ACCESS MEDIPORT - PT INR; Future; Expected date: 10/04/2023 - APTT; Future; Expected date: 10/04/2023 Follow Up: Return in about 1 week (around 10/11/2023) for Clinic Visit. | For: Clinic Visit | Check-out note: Labs today PET scan JULIA RV 1-2 days after PET scan for further management Tenative mediport placement referral Please get all records from [place] Please give the pt's family reading material for info on FOLFIRINOX vs GEMCITABINE-ABRAXANE Domi Bains MD documented in this encounter Nursing Notes * Marni Savage, MED ASSIST - 10/04/2023 10:45 AM EDT Patient identifed by name and birthdate Do you have any concerns about pain management for today's visit? No Living Will or Advance Directive for Health Care as noted on the problem list. [facility] is a way you can talk to your provider on line through e-mail. Would you like to sign up? I can activate it for you? NO Filed Vitals: 10/04/23 1045 BP: 111/70 Pulse: 95 Temp: 35.7 C (96.2 F) TempSrc: Tympanic SpO2: 93% Weight: 96 kg (211 lb 11.2 oz) Patient was instructed to not get up [...] documented in this encounter Miscellaneous Notes * Oncology [facility] Update - Domi Bains MD - 10/07/2023 2:58 PM EDT Pancreatic Adenocarcinoma - No Medical Intervention - Off Treatment. Patient Characteristics: Preoperative, M0 (Clinical Staging), Borderline Resectable, PS = 0,1, BRCA1/2 and PALB2 Mutation Absent/Unknown Therapeutic Status: Preoperative, M0 (Clinical Staging) AJCC T Category: cT2 AJCC N Category: cN0 Resectability Status: Borderline Resectable AJCC M Category: cM0 AJCC 8 Stage Grouping: IB ECOG Performance Status: 1 BRCA1/2 Mutation Status: Did Not Order Test PALB2 Mutation Status: Did Not Order Test documented in this encounter Plan of Treatment Upcoming Encounters Date Type Department Care Team (Late st Contact Info) Description 10/14/2023 8:15 AM EDT Office Visit Urology, [facility] [address] [facility] [place] [id number] Berny Wakefield MD [address] [place] [id number] 10/16/2023 8:00 AM EDT Office Visit Palliative Medicine [facility] [address] [place] [address] Chacha Bojorquez MD [address] [facility] [place], [place] [id number] 10/18/2023 10:30 AM EDT Office Visit Hematology/Oncology [facility] [address] [place], [place] [address] Domi Bains MD [address] [facility] [place] [address] Scheduled Orders Name Type Priority Associated Diagnoses Orde r Schedule IR VENOUS ACCESS MEDIPORT Medical Imaging STAT Pancreatic adenocarcinoma (HCC) Ordered: 10/04/2023 Health Maintenance Due Date Last Done Comments [...] Procedure Name Priority Date/Time Associated Diagnosis Comments PET CT SKULL BASE TO MID-THIGH STAT 10/07/2023 9:45 AM EDT Pancreatic adenocarcinoma (HCC) DIFFERENTIAL, AUTOMATED STAT 10/04/2023 12:00 PM EDT Pancreatic adenocarcinoma (HCC) HEPATITIS B SURFACE ANTIBODY STAT 10/04/2023 12:00 PM EDT Pancreatic adenocarcinoma (HCC) CA 19-9 STAT 10/04/2023 12:00 PM EDT Pancreatic adenocarcinoma (HCC) HEPATIC FUNCTION PANEL STAT 10/04/2023 12:00 PM EDT Pancreatic adenocarcinoma (HCC) HEPATITIS B CORE ANTIBODIES IGG AND IGM STAT 10/04/2023 12:00 PM EDT Pancreatic adenocarcinoma (HCC) HEPATITIS B SURFACE ANTIGEN STAT 10/04/2023 12:00 PM EDT Pancreatic adenocarcinoma (HCC) CBC STAT 10/04/2023 12:00 PM EDT Pancreatic adenocarcinoma (HCC) CBC STAT 10/04/2023 12:00 PM EDT Pancreatic adenocarcinoma (HCC) CEA STAT 10/04/2023 12:00 PM EDT Pancreatic adenocarcinoma (HCC) documented in this encounter Results * PET CT SKULL BASE TO MID-THIGH FDG (10/07/2023 9:45 AM EDT) Anatomical Region Laterality Modality Body, Chest, Abdomen, Pelvis Pos itron Emission Tomography (PET) 10/07/2023 12:0 9 PM EDT Narrative 10/07/2023 12:06 PM EDT EXAM: PET CT SKULL BASE TO MID-THIGH FDG - 10/07/2023 - 10/07/2023 9:45 am HISTORY 83 y/o ,M,PANCREATIC CANCER. Initial evaluation. COMPARISON: No prior FDG-PET/CT. TECHNIQUE: The patient's fasting blood glucose was in diabetic range 174 mg/dL. Approximately 53 minutes following intravenous injection of 11.2 mCi 03-ezivzv-1-deoxyglucose (FDG) within the left hand, low dose noncontrast CT images were obtained at 4 mm slice thickness from the skull basethrough mid thighs. Then, emission PET images were obtained through the same region. The noncontrast CT was used for anatomic localization and photon attenuation correction of the PET scan. The standardized uptake values (SUV) reported below are maximum values within a region of interest. FINDINGS: BACKGROUND METABOLIC ACTIVITY - Lower limit, mediastinal blood pool: SUV 3.2. - Upper limit, liver: SUV 4.8. HEAD Symmetric activity within the visualized skull base. NECK Metabolically-active cervical lymph nodes: Absent. CHEST LINES DEVICES: TAVR (transcatheter aortic valve replacement). LUNG Focal metabolic activity within lungs: Absent. METABOLICALLY-ACTIVE LYMPH NODES Mediastinal: Absent. Hilar: Absent. Axillary: Absent. MEDIASTINUM Normal heart size. No pericardial effusion. VESSELS Calcified coronary artery plaque burden: Moderate. Thoracic aortic aneurysm: Absent. ABDOMEN LINES DEVICES: Common bile duct stent terminating in the duodenum. ABDOMINAL WALL/PERITONEUM: No ascites. INTRAPERITONEUM Metabolically-active intraperitoneal lymph nodes: Absent. Liver / spleen: Symmetric low intensity homogeneous metabolic activity throughout the parenchyma of the liver and spleen. Biliary: Layering sludge or tiny gallstones on the dependent wall. Bowel: No small bowel dilatation or evidence for obstruction. Formed stool within large bowel. RETROPERITONEUM Metabolically-active retroperitoneal lymph nodes: Absent. Adrenal glands: 1 cm low metabolic intensity left adrenal adenoma (4 HU internally), SUV 2.5. Similar low-intensity metabolic activity within partially calcified right adrenal gland, SUV 2. Pancreas: Tiny metabolically-active focus within the head, SUV 3.4; axial fused image 230. No ductal dilatation. Kidneys: Photopenic cortical cyst in the lower pole of the left kidney. No renal or ureteral calculus. No hydronephrosis. Excreted radiotracer activity within the renal collecting systems and ureters. Abdominal aorta: No aneurysm. PELVIS Metabolically-active pelvic lymph nodes: Absent. Air within the lumen of the urinary bladder, suggests recent intervention. MUSCULOSKELETAL Left shoulder reverse arthroplasty. Metabolically-active opacity within the superficial fat of the left gluteal region, SUV 3.8; axial fused image 324. Focal metabolic activity within bones: Absent. IMPRESSION: 1. Tiny focus of metabolic activity within the pancreatic head, consistent with biopsy-proven malignancy. No FDG PET-CT evidence for regional lymph node or distant metastasis. 2. Metabolically-active opacity within the superficial fat of the left gluteal region, likely inflammatory. Correlate with physical exam. Procedure Note Daniel Rose MD - 10/07/2023 EXAM: PET CT SKULL BASE TO MID-THIGH FDG - 10/07/2023 - 10/07/2023 9:45 am HISTORY 83 y/o ,M,PANCREATIC CANCER. Initial evaluation. COMPARISON: No prior FDG-PET/CT. TECHNIQUE: The patient's fasting blood glucose was in diabetic range 174 mg/dL.Approximately 53 minutes following intravenous injection of 11.2 dZd31-ygpdqn-4-vmhrorcwgynh (FDG) within the left hand, low dose noncontrastCT images were obtained at 4 mm slice thickness from the skull basethroughmid thighs. Then, emission PET images were obtained through the sameregion. The noncontrast CT was used for anatomic localization and photonattenuation correction of the PET scan. The standardized uptake values(SUV) reported below are maximum values within a region of interest. FINDINGS: BACKGROUND METABOLIC ACTIVITY - Lower limit, mediastinal blood pool: SUV 3.2. - Upper limit, liver: SUV 4.8. HEAD Symmetric activity within the visualized skull base. NECK Metabolically-active cervical lymph nodes: Absent. CHEST LINES DEVICES: TAVR (transcatheter aortic valve replacement). LUNG Focal metabolic activity within lungs: Absent. METABOLICALLY-ACTIVE LYMPH NODES Mediastinal: Absent. Hilar: Absent. Axillary: Absent. MEDIASTINUM Normal heart size. No pericardial effusion. VESSELS Calcified coronary artery plaque burden: Moderate. Thoracic aortic aneurysm: Absent. ABDOMEN LINES DEVICES: Common bile duct stent terminating in the duodenum. ABDOMINAL WALL/PERITONEUM: No ascites. INTRAPERITONEUM Metabolically-active intraperitoneal lymph nodes: Absent. Liver / spleen: Symmetric low intensity homogeneous metabolic activitythroughout the parenchyma of the liver and spleen. Biliary: Layering sludge or tiny gallstones on the dependent wall. Bowel: No small bowel dilatation or evidence for obstruction. Formedstool within large bowel. RETROPERITONEUM Metabolically-active retroperitoneal lymph nodes: Absent. Adrenal glands: 1 cm low metabolic intensity left adrenal adenoma (4 HUinternally), SUV 2.5. Similar low-intensity metabolic activity withinpartially calcified right adrenal gland, SUV 2. Pancreas: Tiny metabolically-active focus within the head, SUV 3.4; axialfused image 230. No ductal dilatation. Kidneys: Photopenic cortical cyst in the lower pole of the left kidney.No renal or ureteral calculus. No hydronephrosis. Excreted radiotraceractivity within the renal collecting systems and ureters. Abdominal aorta: No aneurysm. PELVIS Metabolically-active pelvic lymph nodes: Absent. Air within the lumen of the urinary bladder, suggests recentintervention. MUSCULOSKELETAL Left shoulder reverse arthroplasty. Metabolically-active opacity within the superficial fat of the leftgluteal region, SUV 3.8; axial fused image 324. Focal metabolic activity within bones: Absent. IMPRESSION: 1. Tiny focus of metabolic activity within the pancreatic head, consistentwith biopsy-proven malignancy. No FDG PET-CT evidence for regional lymphnode or distant metastasis. 2. Metabolically-active opacity within the superficial fat of the leftgluteal region, likely inflammatory. Correlate with physical exam. Domi Bains MD [facility] NUCLEAR MED * DIFFERENTIAL, AUTOMATED (10/04/2023 12:00 PM EDT) WBC 8.67 4.00 - 10.80 K/uL 10/04/2023 12:08 PM EDT [facility] 56-02 Neutrophils % 60.6 40.0 - 75.0 % 10/04/2023 12:08 PM EDT [facility] 56-02 Lymphocytes % 26.4 18.0 - 42.0 % 10/04/2023 12:08 PM EDT [facility] 56-02 Monocytes % 9.6 1.0 - 11.0 % 10/04/2023 12:08 PM EDT [facility] 56-02 Eosinophils % 2.9 0.0 - 6.0 % 10/04/2023 12:08 PM EDT [facility] 56-02 Basophils % 0.5 0.0 - 2.0 % 10/04/2023 12:08 PM EDT [facility] 56-02 Absolute Neutrophils 5.26 1.80 - 7.70 K/uL 10/04/2023 12:08 PM EDT [facility] 56-02 Absolute Lymphocytes 2.29 1.00 - 4.80 K/ul 10/04/2023 12:08 PM EDT [facility] 56-02 Absolute Monocytes 0.83 0.00 - 1.10 K/uL 10/04/2023 12:08 PM EDT [facility] 56-02 Absolute Eosinophils 0.25 0.00 - 0.70 K/uL 10/04/2023 12:08 PM EDT [facility] 56 Absolute Basophils 0.04 0.00 - 0.20 K/uL 10/04/2023 12:08 PM EDT [facility] Blood Venous blood specimen / Unknown Venipuncture / Unknown 10/04/2023 12:00 PM EDT 10/04/2023 12:00 PM EDT Domi Bains MD LAB BLOOD ORDERABLES [place] [address] [place] [address] * (ABNORMAL) CBC (10/04/2023 12:00 PM EDT) WBC 8.67 4.00 - 10.80 K/uL 10/04/2023 12:08 PM EDT [address] RBC 3.79 4.50 - 5.25 M/uL 10/04/2023 12:08 PM EDT [address] HGB 12.0(L) 14.0 - 16.8 g/dL 10/04/2023 12:08 PM EDT [facility] HCT 37.3(L) 40.0 - 48.4 % 10/04/2023 12:08 PM EDT [address] MCV 98.4 82.0 - 99.5 fL 10/04/2023 12:08 PM EDT [address] MCH 31.7 27.0 - 34.0 pg 10/04/2023 12:08 PM EDT [address] MCHC 32.2 32.0 - 36.0 g/dL 10/04/2023 12:08 PM EDT [address] RDW 14.7 11.5 - 15.5 % 10/04/2023 12:08 PM EDT [facility] 56 PLT 333 140 - 400 K/uL 10/04/2023 12:08 PM EDT [facility] 56 MPV 8.8 6.6 - 11.1 fL 10/04/2023 12:08 PM EDT [facility] 56- Blood Venous blood specimen / Unknown Venipuncture / Unknown 10/04/2023 12:00 PM EDT 10/04/2023 12:00 PM EDT Domi Bains MD LAB BLOOD ORDERABLES [facility] 56-[address] [place] [address] * (ABNORMAL) APTT (10/04/2023 12:00 PM EDT) aPTT 43(H) 21 - 38 seconds 10/04/2023 6:35 PM EDT [facility] [facility] [place] Venous blood specimen / Unknown Venipuncture / Unknown 10/04/2023 12:00 PM EDT 10/04/2023 12:00 PM EDT Narrative [facility] - 10/04/2023 6:35 PM EDT Anticoagulation may affect testing. Refer to [facility] [employer] Test Catalog for a list of effects. Domi Bains MD LAB BLOOD ORDERABLES [facility] [address] [place] [address] * PT INR (10/04/2023 12:00 PM EDT) Prothrombin Time 13.8 11.6 - 15.2 seconds 10/04/2023 12:23 PM EDT [facility] [facility]- INR 1.1 0.8 - 1.2 10/04/2023 12:23 PM EDT [facility] 56- Blood Venous blood specimen / Unknown Venipuncture / Unknown 10/04/2023 12:00 PM EDT 10/04/2023 12:00 PM EDT Narrative [facility] 56-02 - 10/04/2023 12:23 PM EDT Warfarin Therapy INR: 2.0-3.0 conventional anticoagulation INR: 2.5-3.5 high intensity anticoagulation Domi Bains MD LAB BLOOD ORDERABLES LABORATORY [facility] 56-[address] [place] [address] * (ABNORMAL) CEA (10/04/2023 12:00 PM EDT) CEA 6.6(H) <=5.2 ng/mL 10/04/2023 6:33 PM EDT [place] [facility] [place] Venous blood specimen / Unknown Venipuncture / Unknown 10/04/2023 12:00 PM EDT 10/04/2023 12:00 PM EDT Domi Bains MD LAB BLOOD ORDERABLES [facility] [place] [address] [place] [address] * (ABNORMAL) CA 19-9 (10/04/2023 12:00 PM EDT) CA 19-9 1,617.0(H) <35.0 U/mL 10/04/2023 7:00 PM EDT [facility] [place] Venous blood specimen / Unknown Venipuncture / Unknown 10/04/2023 12:00 PM EDT 10/04/2023 12:00 PM EDT Domi Bains MD LAB BLOOD ORDERABLES Performing Organization Address City/[facility]/ZIP Co de Phone Number [facility] [facility] [place] [address] [place] [address] * (ABNORMAL) HEPATIC FUNCTION PANEL (10/04/2023 12:00 PM EDT) Albumin 3.9 3.8 - 5.0 g/dL 10/04/2023 1:05 PM EDT [facility] 56- AST 53(H) 10 - 50 U/L 10/04/2023 1:05 PM EDT [facility] 56- Alkaline Phosphatase 171(H) 35 - 130 U/L 10/04/2023 1:05 PM EDT LAB[facility]ATORY [facility] 56 ALT 61(H) 10 - 50 U/L 10/04/2023 1:05 PM EDT [facility] 56 Bilirubin, Total 2.0(H) <=1.2 mg/dL 10/04/2023 1:05 PM EDT [address] Bilirubin, Direct 1.3(H) 0.0 - 0.3 mg/dL 10/04/2023 1:05 PM EDT [facility] 56 Protein 7.0 6.0 - 8.3 g/dL 10/04/2023 1:05 PM EDT [facility] 56 Blood Venous blood specimen / Unknown Venipuncture / Unknown 10/04/2023 12:00 PM EDT 10/04/2023 12:00 PM EDT Domi Bains MD LAB BLOOD ORDERABLES [facility] 56- [address] [place] [address] * HEPATITIS B CORE ANTIBODIES IGG AND IGM (10/04/2023 12:00 PM EDT) Hepatitis B Core Antibodies IgG and IgM Negative Negative 10/04/2023 7:46 PM EDT [facility] [place] Blood Venous blood specimen / Unknown Venipuncture / Unknown 10/04/2023 12:00 PM EDT 10/04/2023 12:00 PM EDT Domi Bains MD LAB BLOOD ORDERABLES [facility] [place] [address] [place] [address] * HEPATITIS B SURFACE ANTIGEN (10/04/2023 12:00 PM EDT) Hepatitis B Surface Antigen Negative Negative 10/04/2023 7:46 PM EDT [facility] [place] Blood Venous blood specimen / Unknown Venipuncture / Unknown 10/04/2023 12:00 PM EDT 10/04/2023 12:00 PM EDT Domi Bains MD LAB BLOOD ORDERABLES Performing Organization Address [facility] de Phone Number [address] [address] * HEPATITIS B SURFACE ANTIBODY (10/04/2023 12:00 PM EDT) Pathologist [facility] Hepatitis B Surface Antibody, Quantitative <3.5 mIU/mL 10/04/2023 7:46 PM EDT LAB[facility] [place] Hepatitis B Surface Antibody, Qualitative Negative 10/04/2023 7:46 PM EDT [facility] [place] Hepatitis B Surface Antibody, Interpretation NOT immune to Hepatitis B Virus 10/04/2023 7:46 PM EDT [facility] [place] Comment: POSITIVE: >=11.5 mIU/mL INDETERMINATE: 8.5-<11.5 mIU/mL NEGATIVE: <8.5 mIU/mL Blood Venous blood specimen / Unknown Venipuncture / Unknown 10/04/2023 12:00 PM EDT 10/04/2023 12:00 PM EDT Domi Bains MD LAB BLOOD ORDERABLES Performing Organization Address [facility] de Phone Number [address] [address] documented in this encounter Visit Diagnoses Diagnosis Pancreatic adenocarcinoma (HCC)- Primary Malignant neoplasm of pancreas, part unspecified documented in this encounter Care Teams Slasher Operator Relationship Specialty Start Date End Date Bailee Colon MD 6 [facility] [address] [place] [address] PCP - General Family Medicine 06/27/23 documented as of this encounter"
--- OUTSIDE RECORDS SUMMARY | 2023-10-31 03:29 | External Medical Summary | Summary of Care ---
Author Name Unknown Organization [facility] Address [address] [place] [address] Phone [phone] Care Team Providers Care Range Ecologist Name Role Phone Bailee Colon MD Primary Care Provi caroline Reason for Visit * Reason Onset Date Comments Appointment 10/09/2023 Encounter Details Date Type Department Care Team (Late st Contact Info) Description 10/09/2023 Telephone Urology, [facility] [address] [place] [address] Services, Scheduling [address] [place] [address] Appointment Allergies Active Allergy Reactions Criticality Noted [...] 10/14/2023 8:15 AM EDT Office Visit Urology, [facility] [address] [place] [address] Berny Wakefield MD [address] [place] [address] 10/16/2023 8:00 AM EDT Office Visit Palliative Medicine [facility] 200 [facility] [address] [place] [address] Chacha Bojorquez MD 400 [facility] [place] [address] 10/18/2023 10:30 AM EDT Office Visit Hematology/Oncology [facility] [address] [place] [address] Domi Bains MD [address] [place] [phone] Health Maintenance Due Date Last Done Comments [...] filedocumented as of this encounter Care Teams Range Ecologist Relationship Specialty Start Date End Date Bailee Colon MD [address], [place] [address] PCP - General Family Medicine 06/27/23 documented as of this encounter
--- OUTSIDE RECORDS SUMMARY | 2023-10-31 03:29 | External Medical Summary | Summary of Care ---
Author Name Unknown Organization [facility] Address [address] [place] [address] Phone [phone] Care Team Providers Care Finished Goods Inspector Name Role Phone Bailee Colon MD Primary Care Provi caroline Reason for Visit * Reason Onset Date Comments Appointment 10/09/2023 Encounter Details Date Type Department Care Team (Late st Contact Info) Description 10/09/2023 Telephone Urology, [facility] [address] [place] [address] Services, Scheduling [address] [place] [address] Appointment Allergies Active Allergy Reactions Criticality Noted [...] 10/14/2023 8:15 AM EDT Office Visit Urology, [facility] 132 [facility] [place] [address] Berny Wakefield MD [address] [place] [address] 10/16/2023 8:00 AM EDT Office Visit Palliative Medicine [facility] 200 [place] [phone] Chacha Bojorquez MD [address] [place] [address] 10/18/2023 10:30 AM EDT Office Visit Hematology/Oncology [facility] [address] [place] [address] Domi Bains MD 400 [place] [address] Health Maintenance Due Date Last Done [...] filedocumented as of this encounter Care Teams Finished Goods Inspector Relationship Specialty Start Date End Date Bailee Colon MD 6 [facility] [address] [address] PCP - General Family Medicine 06/27/23 documented as of this encounter
--- OUTSIDE RECORDS SUMMARY | 2023-10-31 03:29 | External Medical Summary | Summary of Care ---
Author Name Unknown Organization [facility] Address [address] [place] [address] Phone [phone] Care Team Providers Care Counter Clerk [employer] Name Role Phone Bailee Colon MD Primary Care Provi caroline Reason for Visit * Reason Onset Date Comments Appointment 10/09/2023 Encounter Details Date Type Department Care Team (Late st Contact Info) Description 10/09/2023 Telephone Urology, [facility] [address] [place] [address] Services, Scheduling [address] [place] [address] Appointment Allergies Active Allergy Reactions Criticality Noted [...] Encounter - Tristan Barksdale OSA - 10/09/2023 1:39 PM EDT Pt called back and stated they can't do video,but discussed it with her and they are going to come into the office. * Telephone Encounter - Tristan Barksdale OSA - 10/09/2023 9:41 AM EDT Lmom to see if patient can do video visit * Telephone Encounter - nA Harvey LPN - 10/09/2023 9:06 AM EDT [...] 10/14/2023 8:15 AM EDT Office Visit Urology, [facility] 132 [facility] [place] [address] Berny Wakefield MD 27 [facility] [place] [address] 10/16/2023 8:00 AM EDT Office Visit Palliative Medicine [facility] 200 [place] [phone] Chacha Bojorquez MD 400 [facility] [address] 10/18/2023 10:30 AM EDT Office Visit Hematology/Oncology [facility] [address] Domi Bains MD 400 [facility] [phone] Health Maintenance Due Date Last Done Comments [...] filedocumented as of this encounter Care Teams Counter Clerk [employer] Relationship Specialty Start Date End Date Bailee Colon MD 6 [facility] [address] [place] [address] PCP - General Family Medicine 06/27/23 documented as of this encounter
--- OUTSIDE RECORDS SUMMARY | 2023-10-31 03:29 | External Medical Summary | Summary of Care ---
Author Name Unknown Organization [facility] Address [address] [place] [address] Phone [phone] Care Team Providers Care Printing Mechanist Name Role Phone Bailee Thorpe MD Primary Care Provi caroline Reason for Visit * Reason Comments Follow Up Encounter Details Date Type Department Care Team (Late st Contact Info) Description 10/14/2023 8:15 AM EDT Office Visit Urology, [facility] 132 [facility] [place] [address] Berny Wakefield MD [address] [place] [address] Prostate cancer (HCC)*; BPH with obstruction/lower urinary tract symptoms; Elevated prostate specific antigen (PSA) Allergies Active Allergy Reactions Criticality Noted Date [...] bedtime. Active Dutasteride 0.5 MG Oral Capsule (Avodart)Indicati ons:BPH with obstruction/lower urinary tract symptoms Take 1 Capsule by mouth in the morning. 90 Capsule 3 06/18/2023 Active dexAMETHasone 4 MG Oral Tablet (Decadron)Indicat ions:Neoplastic (malignant) related fatigue Take 1 Tablet by mouth daily with breakfast. 20 Tablet 10/07/2023 Active Tamsulosin HCl 0.4 MG Oral Capsule (Flomax)Indicatio ns:BPH with obstruction/lower urinary tract symptoms Take 1 Capsule by mouth in the morning. 90 Capsule 3 10/14/2023 Active Tamsulosin HCl 0.4 MG Oral Capsule (Flomax)Indicatio ns:BPH with obstruction/lower urinary tract symptoms Take 1 Capsule by mouth in the morning. 90 Capsule 3 10/09/2022 10/14/2023 Discontinued (Refill) documented as of this encounter (statuses as [...] Progress Notes * Berny Wakefield MD - 10/14/2023 8:15 AM EDT [id number] PCP: BAILEE THORPE [address] [facility] [address] [place] [address] [phone] Luís Murray is a 83 year old male, who presents for 4 month follow-up of his prostate cancer on intermittent androgen deprivation. Patient's past notes reviewed. Patient was diagnosed with his malignancy a couple of years ago, declined consideration of definitive radiation. PSA continues to respondto last injection. He is here with his . They note hospitalization due to jaundice, found to bedue to pancreatic malignancy. They note they have desired to proceed with expectant management and palliation as needed. They report that his jaundice is doing much better since placement of a biliary stent at [facility]. BPH: Patient is being seen for BPH [...] . Prostate biopsy done September 2021 demonstrating [place] 4 + 4 adenocarcinoma, 4+3 adenocarcinoma in all biopsies on the left-hand side, 09/04. Right-sided biopsies demonstrate no cancer. Rad Onc consult October 2021, declined intervention. Staging with bone scan and CT scan summer 2021. Started on intermittent hormone therapy secondary to rise in fluctuation of PSA including a value of 25 in April of 2022. Three-month Lupron provided May 2022, May 2023. PSA Results done at [facility]: 17.89 (May 2023) 0.27 (Dec 2022) 0.7 (Aug 2022) 24.87 (Apr 2022) 19 (Jun 2021) 10.45 (Nov 2020) 12.8 (Aug 2020) 8.74 (Apr 2020) 6.74 (Dec 2019) PSA 8 (Aug 2019) 21.2 (May 2019) PSA Results: Lab Results Component Value Date/Time PSA - [facility] 0.79 10/04/2023 12:00 PM PSA - [facility] 22.73 (H) 01/08/2022 05:08 PM PSA - [facility] 2.38 02/11/2006 09:53 AM PET scan 2023: IMPRESSION: 1. Tiny focus of metabolic activity within the pancreatic head, consistent with biopsy-proven malignancy. No FDG PET-CT evidence for regional lymph node or distant metastasis. 2. Metabolically-active opacity within the superficial fat of the left gluteal region, likely inflammatory. Correlate with physical exam. Creatinine Results: Lab Results Component Value Date/Time CREATININE - [facility] 1.0 10/02/2023 03:15 PM CREATININE - [facility] 1.1 11/01/2021 09:40 AM CREATININE - [facility] 1.0 05/26/1999 07:09 AM CREATININE-OUTSIDE LAB 1.03 04/15/2020 12:00 AM Current Outpatient Medications Medication Sig Dispense [...] mouth in the morning. 90 Capsule 3 dexAMETHasone 4 MG Oral Tablet (Decadron) Take 1 Tablet by mouth daily with breakfast. 20 Tablet 0 No current facility-administered medications for this visit. Review of patient's allergies indicates: Allergen Reactions Ciprofloxacin Social History: Social History Tobacco Use Smoking status: Never Smokeless tobacco: Never Substance Use Topics Alcohol use: Not on file Vaping/E-Cigarette Use Vaping/E-Cigarette Use Never User Vaping/E-Cigarette Substances Vaping/E-Cigarette Devices Family History Problem Relation Name Age of Onset Other (scleroderma) Mother Cirrhosis Father Past Surgical History: Procedure Laterality Date ANESTH, TOTAL KNEE REPLACEMENT Bilateral CARPAL TUNNEL SURGERY COLONOSCOPY SACROILIAC JOINT INJECT W/GUIDANCE Bilateral 06/27/2023 INJECTION SACROILIAC JOINT performed by Robin Linares DO at OR [facility] SHOULDER SURGERY PROCEDURE NEC Past Medical History: Diagnosis Date Elevated cholesterol OA (osteoarthritis) Obesity Patient Active Problem List Diagnosis Dermatitis Elevated prostate specific antigen (PSA) BPH with obstruction/lower urinary tract symptoms Pancreatic adenocarcinoma (HCC) Constitutional: (-) fever and (-) chills Eyes: (+) decreased vision ENT: (-) stridor Abdominal/GI: (+) constipation or change in bowel pattern Male : see HPI Musculoskeletal: (+) joint pain, (+) back pain/problems, and (+) hip pain/problems Neurology: (+) loss of balance Psychiatry: (-) substance abuse Physical Exam Nursing note reviewed. Constitutional: General: He is not in acute distress. Appearance: He is not toxic-appearing. Comments: Using cane HENT: Head: Normocephalic. Right Ear: External ear normal. Left Ear: External ear normal. Nose: Nose normal. Mouth/Throat: Mouth: Mucous membranes are moist. Eyes: Extraocular Movements: Extraocular movements intact. Cardiovascular: Pulses: Normal pulses. Pulmonary: Effort: Pulmonary effort is normal. No respiratory distress. Abdominal: General: There is distension. Palpations: Abdomen is soft. Musculoskeletal: Cervical back: Normal range of motion. Skin: Coloration: Skin is not pale. Neurological: Motor: Weakness present. Gait: Gait abnormal. Psychiatric: Behavior: Behavior normal. Thought Content: Thought content normal. Impression/Plan: 83-year-old male with prostate cancer on intermittent androgen deprivation therapy. We will hope to continue his intermittent therapy. Return to the office in 4 months with a repeat PSA. Refill of tamsulosin provided. Continue maximal medical therapy. Expected course associated withhis pancreatic malignancy is reviewed. He will continue to have imaging and follow-up with medical service. We can follow depending on progress. Patient is encouraged to set up capacity for telehealth visit in the future if needed to continue care while minimizing transport and travel. Above content is personally reviewed. Patient vocalizes good understanding of the treatment plan. Berny Wakefield MD 7:30 AM 10/14/2023 documented in this encounter Nursing Notes * Amalia Juarez LPN - 10/14/2023 8:04 AM EDT 4 month ret BPH, prostate cancer Dutasteride, tamsulosin 3 month lupron 07/10/23 PSA Results: Lab Results Component Value Date/Time PSA - [facility] 0.79 10/04/2023 12:00 PM PSA - [facility] 22.73 (H) 01/08/2022 05:08 PM PSA - [facility] 2.38 02/11/2006 09:53 AM No concerns documented in this encounter Plan of Treatment Upcoming Encounters Date Type Department Care Team (Late st Contact Info) Description 10/16/2023 8:00 AM EDT Office Visit Palliative Medicine [facility] 200 [place] [phone] Chacha Bojorquez MD [address] [place] [address] 10/18/2023 10:30 AM EDT Office Visit Hematology/Oncology [facility] [address] [facility] [address] [place] [phone] Domi Bains MD [address] [place] [phone] 02/05/2024 8:15 AM EST Office Visit Urology, [facility] 132 [facility] [place] [address] Berny Wakefield MD [address] [place] [address] Scheduled Orders Name Type Priority Associated Diagnoses Orde r Schedule PSA Lab Routine Prostate cancer (HCC) Expected: 01/14/2024, Expires: Health Maintenance Due Date Last Done Comments [...] symptoms (LUTS) Elevated prostate specific antigen (PSA) documented in this encounter Care Teams Printing Mechanist Relationship Specialty Start Date End Date Bailee Thorpe MD [address] [place] [address] [address] PCP - General Family Medicine 06/27/23 documented as of this encounter
--- OUTSIDE RECORDS SUMMARY | 2023-10-31 03:29 | External Medical Summary | Summary of Care ---
Author Name Unknown Organization [facility] Address [address] [place] [address] Phone [phone] Care Team Providers Care Swine Genetics Researcher Name Role Phone Bailee Colon MD Primary Care Provi caroline Reason for Visit * Reason Onset Date Comments Appointment 10/09/2023 Encounter Details Date Type Department Care Team (Late st Contact Info) Description 10/09/2023 Telephone Urology, [facility] [address] [place] [address] Services, Scheduling [address] [place] [address] Appointment Allergies Active Allergy Reactions Criticality Noted [...] Encounter - An Harvey LPN - 10/09/2023 2:19 PM EDT Thank you. * Telephone Encounter - Tristan Barksdale OSA [...] 10/14/2023 8:15 AM EDT Office Visit Urology, [facility] 132 [facility] [place] [address] Berny Wakefield MD [address] [place] [address] 10/16/2023 8:00 AM EDT Office Visit Palliative Medicine [facility] 200 [place] [phone] Chacha Bojorquez MD [address] [place] [address] 10/18/2023 10:30 AM EDT Office Visit Hematology/Oncology [facility] [address] Domi Bains MD [address] [place] [phone] Health Maintenance Due Date Last Done Comments [...] filedocumented as of this encounter Care Teams Swine Genetics Researcher Relationship Specialty Start Date End Date Bailee Colon MD [facility] [address] [place] [address] PCP - General Family Medicine 06/27/23 documented as of this encounter
--- OUTSIDE RECORDS SUMMARY | 2023-10-31 03:29 | External Medical Summary | Summary of Care ---
Author Name Unknown Organization [facility] Address [address] [place] [address] Phone [phone] Care Team Providers Care Dandy Operator Name Role Phone Bailee Colon MD Primary Care Provi caroline Reason for Visit * Reason Onset Date Comments Appointment 10/09/2023 Encounter Details Date Type Department Care Team (Late st Contact Info) Description 10/09/2023 Telephone Urology, [facility] [address] [place] [address] Services, Scheduling [address] [place] [address] Appointment Allergies Active Allergy Reactions Criticality Noted [...] 10/14/2023 8:15 AM EDT Office Visit Urology, [facility] [address] [place] [address] Berny Wakefield MD [address] [place] [address] 10/16/2023 8:00 AM EDT Office Visit Palliative Medicine [facility] [address] [facility] [place] [address] Chacha Bojorquez MD 400 [place] [address] 10/18/2023 10:30 AM EDT Office Visit Hematology/Oncology [facility] [address] [place] [address] Domi Bains MD 400 [facility] [phone] Health Maintenance Due Date Last Done Comments [...] filedocumented as of this encounter Care Teams Dandy Operator Relationship Specialty Start Date End Date Bailee Colon MD [address], [place] [address] PCP - General Family Medicine 06/27/23 documented as of this encounter
--- OUTSIDE RECORDS SUMMARY | 2023-10-31 03:29 | External Medical Summary | Summary of Care ---
Author Name Unknown Organization [facility] Address [address] [place] [address] Phone [phone] Care Team Providers Care Self Sealing Fuel Tank Repairer Name Role Phone Bailee Colon MD Primary Care Provi caroline Encounter Details Date Type Department Care Team (Late st Contact Info) Description 10/02/2023 Result Scan Unspecified Department <No scans attached> Allergies Active Allergy Reactions Criticality Noted Date Comments Ciprofloxacin 09/24/2023 documented as of this encounter (statuses as of 10/08/2023) Medications Medication Sig Dispensed Refills Start Date [...] as of this encounter (statuses as of 10/08/2023) Active Problems Problem Noted Date Diagnosed Date Pancreatic adenocarcinoma 10/04/2023 Cancer Staging:Clinical stage from 10/04/2023:Stage IB(cT2, cN0, cM0) - Signed by Domi Bains MD on 10/07/2023 Elevated prostate specific antigen (PSA) 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 Dermatitis 04/03/2006 documented as of this encounter (statuses as of 10/08/2023) Social History Tobacco Use Types Packs/Day Years [...] 10/14/2023 8:15 AM EDT Office Visit Urology, [facility] 132 [facility] [place] [address] Berny Wakefield MD [address] [place] [address] 10/16/2023 8:00 AM EDT Office Visit Palliative Medicine [facility] [address] [place] [address] Chacha Bojorquez MD [address] [place] [address] 10/18/2023 10:30 AM EDT Office Visit Hematology/Oncology [facility] [address] [facility] [address] [place] [address] Domi Bains MD [address] [place] [phone] Health Maintenance Due Date Last Done Comments [...] Date/Time Associated Diagnosis Comments OUTSIDE LAB RESULTS 10/02/2023 documented in this encounter Results * OUTSIDE LAB RESULTS (10/02/2023) 10/02/2023 No Physician Data Unknown LABORATORY documented in this encounter Care Teams Self Sealing Fuel Tank Repairer Relationship Specialty Start Date End Date Bailee Colon MD 6 [facility] [address] PCP - General Family Medicine 06/27/23 documented as of this encounter
--- OUTSIDE RECORDS SUMMARY | 2023-10-31 03:30 | External Medical Summary | Summary of Care ---
Author Name Unknown Organization [facility] Address [address] [place] [address] Phone [phone] Care Team Providers Care Science Editor Name Role Phone Bailee Colon MD Primary Care Provi caroline Encounter Details Date Type Department Care Team (Late st Contact Info) Description 10/07/2023 Telephone Palliative Medicine, [address] 5th Floor [place], [place] [phone] Chacha Bojorquez MD [address] [place] [address] Allergies Active Allergy Reactions Criticality Noted Date [...] Noted Date Diagnosed Date Pancreatic adenocarcinoma 10/04/2023 Elevated prostate specific antigen (PSA) 021 BPH [...] encounter Miscellaneous Notes * Telephone Encounter - Chacha Bojorquez MD - 10/07/2023 11:06 AM EDT Spoke to patient's daughter They met with Dr Dr Bains and he got a PET scan today However they met over the weekend and had a family meeting and the patient is clear he does not want to pursue any sort of chemo or radiation. He wants to live life the best he can until he passes away. He does not want chemotherapy. He has been very functional and even drove on Saturday to [place]. He has been riding his surtass analyst as well. I brought up hospice care and they are not ready just yet, they feel his spirits are too good. PLAN Start dexamethasone 4mg daily for energy/appetite/pain - advised to watch his blood sugar, msg me if remains very elevated, can always cut in 1/2 Will f/u at [facility] next Wed at 8am Call if any issues arise sooner Chacha Bojorquez MD Palliative Medicine Physician [facility] documented in this encounter Plan of Treatment Upcoming Encounters Date Type Department Care Team (Late st Contact Info) Description 10/14/2023 8:15 AM EDT Office Visit Urology, [facility] [address] [place] [address] Berny Wakefield MD 27 [facility] [place] [address] 10/16/2023 8:00 AM EDT Office Visit Palliative Medicine [facility] [address] [place] [address] Chacha Bojorquez MD [address] [facility] [address] 10/18/2023 10:30 AM EDT Office Visit Hematology/Oncology [facility] [address] [place] [address] Domi Bains MD 400 [place] [address] Health Maintenance Due Date Last Done [...] as of this encounter Visit Diagnoses Diagnosis Neoplastic (malignant) related fatigue- Primary documented in this encounter Care Teams Science Editor Relationship Specialty Start Date End Date Bailee Colon MD 6 [place] [address] PCP - General Family Medicine 06/27/23 documented as of this encounter
--- OUTSIDE RECORDS SUMMARY | 2023-10-31 03:30 | External Medical Summary ---
Author Name Unknown Address Unknown Organization K09:[facility] Makeda Caraballo [place] [address] Laboratory Report Ordering Provider Test Date Status JAY MENDEZ 10/04/2023 12:00:55 Final Observation Date Value Abnormality Reference (Units ) Status Albumin 10/04/2023 12:00:55 3.9 3.8-5.0 (g/dL) Final AST (Aspartate aminotransferase) 10/04/2023 12:00:55 53 Above high normal 10-50 (U/L) Final Alk Phos 10/04/2023 12:00:55 171 Above high normal 35-130 (U/L) Final ALT (Alanine aminotransferase) 10/04/2023 12:00:55 61 Above high normal 10-50 (U/L) Final Bilirubin, Total 10/04/2023 12:00:55 2.0 Above high normal <=1.2 (mg/dL) Final Bilirubin, Direct 10/04/2023 12:00:55 1.3 Above high normal 0.0-0.3 (mg/dL) Final Protein 10/04/2023 12:00:55 7.0 6.0-8.3 (g/dL) Final Performing Location [facility] [place] [address]
--- OUTSIDE RECORDS SUMMARY | 2023-10-31 03:30 | External Medical Summary | Summary of Care ---
Author Name Unknown Organization [facility] Address [address] [place] [address] Phone [phone] Care Team Providers Care Community Education Coordinator Name Role Phone Bailee Colon MD Primary Care Provi caroline Reason for Referral * Precert (Within 24 hrs (call dept; emergent)) - Pending Review Specialty Diagnoses / Procedures Referred By Contac t Referred To Contact Radiology Diagnoses Pancreatic adenocarcinoma (HCC) [facility] [address] [place] [phone] Referral ID Status Reason Start Date Expiration Date V isits Requested Visits Authorized [id number] Pending Review 10/04/2023 999 999 * Precert (Within 24 hrs (call dept; emergent)) - Pending Review Specialty Diagnoses / Procedures Referred By Contac t Referred To Contact Radiology Diagnoses Pancreatic adenocarcinoma (HCC) Procedures PET CT SKULL BASE TO MID-THIGH FDG Domi Bains MD [address] [place] [phone] Referral ID Status Reason Start Date Expiration Date V isits Requested Visits Authorized [id number] Pending Review 10/04/2023 999 999 Reason for Visit * Reason Comments NEW 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 CONTROL SYSTEMS DRAFTING OFFICER * Evaluate & Treat - Unlimited Visits (Within 10 days (routine)) - Authorized Specialty Diagnoses / Procedures Referred By Contac t Referred To Contact Hematology/Oncology / Hematology Oncology Diagnoses Pancreatic mass Pancreatic adenocarcinoma (HCC) Bailee Colon MD [address] [facility] [address] [place] [address] [place] [address], [place] [address] Referral ID Status Reason Start Date Expiration Date Visits Requested Visits Authorized [id number] Authorized Specialty Services Required 09/26/2023 999 999 Encounter Details Date Type Department Care Team (Late st Contact Info) Description 10/04/2023 10:30 AM EDT Office Visit Hematology/Oncology [facility] [place] 200 [facility], [place] [phone] Domi Bains MD [address] [place] [address] [place] [phone] Pancreatic adenocarcinoma (HCC)* [...] Chief Complaint Patient presents with NEW PATIENT CONTROL SYSTEMS DRAFTING OFFICER Code Status: FULL CODE Primary Care Physician: MD Colon Ravishankar E Contact: Lisa () [phone] History of Presenting Illness Luís Murray is a 83 year old male presents for medical oncology consultation due to recent diagnosis of pancreatic cancer. He is accompanied by his , daughter and son-in-law. His medical history significant for CAD, HFpEF, A-fib s/p pacemaker, s/p TAVR, postop LBBB, T2DM, HTN, prostate cancer (on hormonal therapy). He had presented to [facility] with jaundice. 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 Ambulates independently with periodic use of a cane. No Etoh, tob or illicit drug use. Abnormal labs: T. bili 11.7, D bili 7, Alk phos > 200. ALT 230, AST 124. CT abdomen showed normal gallbladder with no CBD dilation. MRCP showed proximal ductal narrowing at the level of ampulla. He was then transferred to [facility] for further workup of painless jaundice, was [...] (on hormonal therapy). He had presented to [facility] with jaundice. 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 Ambulates independently with periodic use of a cane. No Etoh, tob or illicit drug use. Abnormal labs: T. bili 11.7, D bili 7, Alk phos > 200. ALT 230, AST 124. CT abdomen showed normal gallbladder with no CBD dilation. MRCP showed proximal ductal narrowing at the level of ampulla. He was then transferred to [facility] for further workup of painless jaundice, was [...] options ( F OLFIRINOX vs FOLFOX vs Kemper-Abraxane) discussed in detail. Pancreatic adenocarcinoma (HCC) (Primary) [...] placement referral Please get all records from [facility] Please give the pt's family reading material [...] Care as noted on the problem list. [facility] is a way you can talk [...] 10/14/2023 8:15 AM EDT Office Visit Urology, [facility] 132 [facility] [place] [address] Berny Wakefield MD [address] [place] [id number] 10/16/2023 8:00 AM EDT Office Visit Palliative Medicine [facility] [address] [place] [address] Chacha Bojorquez MD 400 [facility] [place] [place] [phone] 10/18/2023 10:30 AM EDT Office Visit Hematology/Oncology [facility] [address] [place], [place] [address] Domi Bains MD 400 [facility] [place] [address] Scheduled Orders Name Type Priority [...] minutes following intravenous injection of 11.2 mCi 63-ektlzh-9-deoxyglucose (FDG) within the left hand, low dose [...] 53 minutes following intravenous injection of 11.2 bXm08-ikdrtm-9-aehxjknaacch (FDG) within the left hand, low dose [...] Correlate with physical exam. Domi Bains MD [facility] NUCLEAR MED * DIFFERENTIAL, AUTOMATED (10/04/2023 12:00 PM EDT) WBC 8.67 4.00 - 10.80 K/uL 10/04/2023 12:08 PM EDT [facility] 56-02 Neutrophils % 60.6 40.0 - 75.0 % 10/04/2023 12:08 PM EDT [facility] 56-02 Lymphocytes % 26.4 18.0 - 42.0 % 10/04/2023 12:08 PM EDT [facility]-02 Monocytes % 9.6 1.0 - 11.0 % 10/04/2023 12:08 PM EDT [facility] 56-02 Eosinophils % 2.9 0.0 - 6.0 % 10/04/2023 12:08 PM EDT [facility] 56-02 Basophils % 0.5 0.0 - 2.0 % 10/04/2023 12:08 PM EDT [facility] 56-02 Absolute Neutrophils 5.26 1.80 - 7.70 K/uL 10/04/2023 12:08 PM EDT [facility] 56-02 Absolute Lymphocytes 2.29 1.00 - 4.80 K/ul 10/04/2023 12:08 PM EDT [facility] 56-02 Absolute Monocytes 0.83 0.00 - 1.10 K/uL 10/04/2023 12:08 PM EDT [facility] 56-02 Absolute Eosinophils 0.25 0.00 - 0.70 K/uL 10/04/2023 12:08 PM EDT [facility] 56 Absolute Basophils 0.04 0.00 - 0.20 K/uL 10/04/2023 12:08 PM EDT [facility] Blood Venous blood specimen / Unknown Venipuncture / Unknown 10/04/2023 12:00 PM EDT 10/04/2023 12:00 PM EDT Domi Bains MD LAB BLOOD ORDERABLES [place] [address] [place] [address] * (ABNORMAL) CBC (10/04/2023 12:00 PM EDT) WBC 8.67 4.00 - 10.80 K/uL 10/04/2023 12:[address]T [address] RBC 3.79 4.50 - 5.25 M/uL 10/04/2023 12:[address]T [address] HGB 12.0(L) 14.0 - 16.8 g/dL 10/04/2023 12:08 PM EDT [facility] HCT 37.3(L) 40.0 - 48.4 % 10/04/2023 12:[address]T [address] MCV 98.4 82.0 - 99.5 fL 10/04/2023 12:08 [address] EDT [address] MCH 31.7 27.0 - 34.0 pg 10/04/2023 12:08 [address] EDT [address] MCHC 32.2 32.0 - 36.0 g/dL 10/04/2023 12:[address]T [address] RDW 14.7 11.5 - 15.5 % 10/04/2023 12:08 PM EDT [facility] 56 PLT 333 140 - 400 K/uL 10/04/2023 12:08 PM EDT [facility] 56 MPV 8.8 6.6 - 11.1 fL 10/04/2023 12:08 PM EDT [facility] 56- Blood Venous blood specimen / Unknown Venipuncture / Unknown 10/04/2023 12:00 PM EDT 10/04/2023 12:00 PM EDT Domi Bains MD LAB BLOOD ORDERABLES [facility] 56-[address] [place] [address] * (ABNORMAL) APTT (10/04/2023 12:00 PM EDT) aPTT 43(H) 21 - 38 seconds 10/04/2023 6:35 PM EDT [facility] Blood Venous blood specimen / Unknown Venipuncture / Unknown 10/04/2023 12:00 PM EDT 10/04/2023 12:00 PM EDT Narrative [facility] - 10/04/2023 6:35 PM EDT Anticoagulation may affect testing. Refer to [employer] [facility] for a list of effects. Domi Bains MD LAB BLOOD ORDERABLES [facility] [address] [place] [address] * PT INR (10/04/2023 12:00 PM EDT) Prothrombin Time 13.8 11.6 - 15.2 seconds 10/04/2023 12:23 PM EDT [facility] 56- INR 1.1 0.8 - 1.2 10/04/2023 12:23 PM EDT [facility] 56- Blood Venous blood specimen / Unknown Venipuncture / Unknown 10/04/2023 12:00 PM EDT 10/04/2023 12:00 PM EDT Narrative [facility] 56-02 - 10/04/2023 12:23 PM EDT Warfarin Therapy INR: 2.0-3.0 conventional anticoagulation INR: 2.5-3.5 high intensity anticoagulation Domi Bains MD LAB BLOOD ORDERABLES [facility] 56-[address] [place] [address] * (ABNORMAL) CEA (10/04/2023 12:00 PM EDT) CEA 6.6(H) <=5.2 ng/mL 10/04/2023 6:33 PM EDT [facility] Blood Venous blood specimen / Unknown Venipuncture / Unknown 10/04/2023 12:00 PM EDT 10/04/2023 12:00 PM EDT Domi Bains MD LAB BLOOD ORDERABLES [facility] [address] [place] [address] * (ABNORMAL) CA 19-9 (10/04/2023 12:00 PM EDT) CA 19-9 1,617.0(H) <35.0 U/mL 10/04/2023 7:00 PM EDT [facility] Blood Venous blood specimen / Unknown Venipuncture / Unknown 10/04/2023 12:00 PM EDT 10/04/2023 12:00 PM EDT Domi Bains MD LAB BLOOD ORDERABLES Performing Organization Address City/[facility]/ZIP Co de Phone Number [facility] [address] [place] [address] * (ABNORMAL) HEPATIC FUNCTION PANEL (10/04/2023 12:00 PM EDT) Albumin 3.9 3.8 - 5.0 g/dL 10/04/2023 1:05 PM EDT [facility] 56- AST 53(H) 10 - 50 U/L 10/04/2023 1:05 PM EDT [facility] 56- Alkaline Phosphatase 171(H) 35 - 130 U/L 10/04/2023 1:05 PM EDT [facility] 56 ALT 61(H) 10 - 50 U/L 10/04/2023 1:05 PM EDT [facility] 56 Bilirubin, Total 2.0(H) <=1.2 mg/dL 10/04/2023 1:[address]T [address] Bilirubin, Direct 1.3(H) 0.0 - 0.3 mg/dL 10/04/2023 1:05 PM EDT [facility] 56 Protein 7.0 6.0 - 8.3 g/dL 10/04/2023 1:05 PM EDT [facility] 56 Blood Venous blood specimen / Unknown Venipuncture / Unknown 10/04/2023 12:00 PM EDT 10/04/2023 12:00 PM EDT Domi Bains MD LAB BLOOD ORDERABLES [facility] 56- [address] [place] [address] * HEPATITIS B CORE ANTIBODIES IGG AND IGM (10/04/2023 12:00 PM EDT) Hepatitis B Core Antibodies IgG and IgM Negative Negative 10/04/2023 7:46 PM EDT [facility] Blood Venous blood specimen / Unknown Venipuncture / Unknown 10/04/2023 12:00 PM EDT 10/04/2023 12:00 PM EDT Domi Bains MD LAB BLOOD ORDERABLES [facility] [address] [place] [address] * HEPATITIS B SURFACE ANTIGEN (10/04/2023 12:00 PM EDT) Hepatitis B Surface Antigen Negative Negative 10/04/2023 7:46 PM EDT [facility] Blood Venous blood specimen / Unknown Venipuncture / Unknown 10/04/2023 12:00 PM EDT 10/04/2023 12:00 PM EDT Domi Bains MD LAB BLOOD ORDERABLES Performing Organization Address [facility]/RUST de Phone Number [address] [address] * HEPATITIS B SURFACE ANTIBODY (10/04/2023 12:00 PM EDT) Pathologist [facility] Hepatitis B Surface Antibody, Quantitative <3.5 mIU/mL 10/04/2023 7:46 PM EDT [facility] Hepatitis B Surface Antibody, Qualitative Negative 10/04/2023 7:46 PM EDT [facility] Hepatitis B Surface Antibody, Interpretation NOT immune to Hepatitis B Virus 10/04/2023 7:46 PM EDT [facility] Comment: POSITIVE: >=11.5 mIU/mL INDETERMINATE: 8.5-<11.5 mIU/mL NEGATIVE: <8.5 mIU/mL Blood Venous blood specimen / Unknown Venipuncture / Unknown 10/04/2023 12:00 PM EDT 10/04/2023 12:00 PM EDT Domi Bains MD LAB BLOOD ORDERABLES Performing Organization Address [facility]/RUST de Phone Number [address] [address] documented in this encounter Visit Diagnoses Diagnosis Pancreatic adenocarcinoma (HCC)- Primary Malignant neoplasm of pancreas, part unspecified documented in this encounter Care Teams Community Education Coordinator Relationship Specialty Start Date End Date Bailee Colon MD [address] [facility] [address] [place] [address] PCP - General Family Medicine 06/27/23 documented as of this encounter"
--- OUTSIDE RECORDS SUMMARY | 2023-10-31 03:30 | External Medical Summary | Summary of Care ---
Author Name Unknown Organization [facility] Address [address] [place] [address] Phone [phone] Care Team Providers Care Estimator And Drafter Name Role Phone Bailee Colon MD Primary Care Provi caroline Encounter Details Date Type Department Care Team (Late st Contact Info) Description 10/07/2023 Telephone Hematology/Oncology, [facility] [address] [place], [place] [phone] Domi Bains MD [address] [place] [address] Allergies Active Allergy Reactions Criticality Noted Date [...] Miscellaneous Notes * Telephone Encounter - Tata Nguyễn OSA - 10/07/2023 7:17 AM EDT IR VENOUS ACCESS [facility]IP[facility] [IRMEDIPORT] (Order [id number]) Luís Perea Murray 10/04/2023 10:30 AM Office Visit Description: 83 year old male Provider: Domi Bains MD Department: HEM/ONC [place] Order Information Date and Time Department Ordering/Authorizing 10/04/2023 11:38 AM Hem/Onc [place] Domi Bains MD Order Providers Authorizing Provider Encounter Provider ([id number]) Domi Bains MD ([id number]) Domi Bains MD Priority and Order Details Priority Class STAT OUTPATIENT PRECERT POOL Quantity Ordering Quantity 1 Collection Information Visit Disposition Dispositions Check-out Note Return in about 1 week (around 10/11/2023) for Clinic Visit. Labs today PET scan JULIA RV 1-2 days after PET scan for further management Tenative mediport placement referral Please get all records from [place] Please give the pt's family reading material for info on FOLFIRINOX vs GEMCITABINE-ABRAXANE Order Questions documented in this encounter Plan of Treatment Upcoming Encounters Date Type Department Care Team (Late st Contact Info) Description 10/07/2023 7:45 AM EDT Imaging Radiology [facility] 1st Floor, [place] [address] [facility] [place] [address] Arrived 10/14/2023 8:15 AM EDT Office Visit Urology, [facility] 132 [facility] [place] [address] Berny Wakefield MD [address] [place] [address] 10/18/2023 10:30 AM EDT Office Visit Hematology/Oncology [facility] [address] [facility] [place] [address] Domi Bains MD [address] [facility] [phone] Health Maintenance Due Date Last Done Comments [...] filedocumented as of this encounter Care Teams Estimator And Drafter Relationship Specialty Start Date End Date Bailee Colon MD 6 [facility] [address] [place] [address] PCP - General Family Medicine 06/27/23 documented as of this encounter
--- OUTSIDE RECORDS SUMMARY | 2023-10-31 03:30 | External Medical Summary | Summary of Care ---
Author Name Unknown Organization [facility] Address [address] [place] [address] Phone [phone] Care Team Providers Care Storage Battery Charger Name Role Phone Bailee Colon MD Primary Care Provi caroline Encounter Details Date Type Department Care Team (Late st Contact Info) Description 09/13/2023 Result Scan Unspecified Department <No scans attached> Allergies Active Allergy Reactions Criticality Noted Date Comments Ciprofloxacin 09/24/2023 documented as of this encounter (statuses as of 10/04/2023) Medications Medication Sig Dispensed Refills Start Date [...] as of this encounter (statuses as of 10/04/2023) Active Problems Problem Noted Date Diagnosed Date Pancreatic adenocarcinoma 10/04/2023 Elevated prostate specific antigen (PSA) 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 [place] [id number] 10/18/2023 10:30 AM EDT Office Visit Hematology/Oncology [facility] [address] Domi Bains MD 400 [facility] [place] [address] Health Maintenance Due Date Last Done [...] Procedure Name Priority Date/Time Associated Diagnosis Comments RADIOLOGY SCANNED RESULT 09/13/2023 documented in this encounter Results * RADIOLOGY SCANNED RESULT (09/13/2023) 09/13/2023 No Physician Data Unknown DIAGNOSTIC RAD IOLOGY SERVICES documented in this encounter Care Teams Storage Battery Charger Relationship Specialty Start Date End Date Bailee Colon MD 6 [facility] [address] [address] PCP - General Family Medicine 06/27/23 documented as of this encounter
--- OUTSIDE RECORDS SUMMARY | 2023-10-31 03:30 | External Medical Summary | Continuity of Care Document ---
Author Name Unknown Organization [facility] [address] Address [address] [place], [place] [id number] Care Team Providers Care Earth Science Technical Officer Name Role Phone Isaiah Bailee Leo Primary Care Physician [phone] [facility]counter [id number] Date(s): 10/02/23 - 10/02/23 [facility] [address] 1 [facility] 303 [facility], [facility] 1 [place], [place] [phone] Encounter Diagnosis Malignant neoplasm of prostate(Final) - Discharge Disposition: Home or Self Care Attending Physician: MD Wakefield Howard I Referring Physician: MD Wakefield Howard I Allergies, Adverse Reactions, Alerts Substance Criticality Severity Reaction Reaction Severity Status ciprofloxacin Dysequilbrium Ac tive Immunizations Given and Recorded Vaccine Date Status [...] q6h, Disp# 8.5 g, Refills: 3, Pharmacy: [facility]/pharmacy #[id number] Start Date: 05/02/21 Status: Ordered Augmentin 875 mg-125 mg oral tablet Start: 09/25/23 8:31:00 AM EDT, amoxicillin 1 tab, PO, q12h, Disp# 10, Refills: 0, Pharmacy: [facility]/pharmacy #[id number] Start Date: 09/25/23 Stop Date: 09/30/23 Status: Ordered cyclobenzaprine 5 mg oral tablet Start: 09/30/23 8:03:00 AM EDT, 1 tab, PO, qhs, Disp# 30 tab, Refills: 3, PRN: NEEDED FOR SPASM, Pharmacy: [facility] STORE [id number] Start Date: 09/30/23 Status: Ordered dutasteride 0.5 mg oral capsule Start: 07/20/20 11:13:00 AM EDT, 1 cap, PO, Daily, Disp# 30 cap, Refills: 3, [id number] Start Date: 07/20/20 Status: Ordered Eliquis 5 mg oral tablet Start: 03/01/23 9:38:00 AM EST, 1 tab, PO, bid, Disp# 60 tab, Refills: 11, Pharmacy: [facility] STORE [id number] Start Date: 03/01/23 Status: Ordered Entresto 24 mg-26 mg oral tablet Start: 04/25/23 11:47:00 AM EST, 1 tab, PO, bid, Disp# 60 tab, Refills: 11, Pharmacy: [facility]/pharmacy #[id number] Start Date: 04/25/23 Status: Ordered Flomax 0.4 mg oral capsule Start: 11/15/20 8:06:00 AM EDT, 1 cap, PO, qAM, Disp# 90 cap, Refills: 3, Pharmacy: [facility]/pharmacy #[id number] Start Date: 11/15/20 Status: Ordered Flonase 50 mcg/inh nasal spray Start: 03/27/23 12:45:00 PM EST, 1 spray, each nostril, Daily, Disp# 16 g, Refills: 3, Pharmacy: [facility]/pharmacy #[id number] Start Date: 03/27/23 Status: Ordered furosemide 20 mg oral tablet Start: 12/26/21 8:58:00 AM EDT, See Instructions, Disp# 90 tab, Refills: 4, as needed for weight gain 2 lbs in 24 hours or 5 lbs in a week, Pharmacy: [id number] Start Date: 12/26/21 Status: Ordered inhaler spacer Start: 10/14/20 11:17:00 AM EDT, See Instructions, Disp# 1 each, dispense 1, Pharmacy: [facility] #[id number] Start Date: 10/14/20 Status: Ordered metFORMIN 500 mg oral tablet Start: 06/03/23 9:33:00 AM EST, See Instructions, Disp# 360 tab, Refills: 1, TAKE 2 TABLETS BY MOUTH WITH NOON MEAL AND WITH EVENING MEAL, Pharmacy: [id number] Start Date: 06/03/23 Status: Ordered metoprolol succinate 25 mg oral tablet, extended release Start: 07/24/23 9:44:00 AM EDT, 1.5 tab, PO, Daily, Disp# 135 tab, Refills: 3, Pharmacy: [facility] #[id number] Start Date: 07/24/23 Status: Ordered multivitamin Start: 07/27/21 8:00:00 AM EDT, 1 tab, PO, Daily Start Date: 07/27/21 Status: Ordered One Touch Finepoint (25G) Lancets Start: 06/26/17 8:54:00 AM EDT, See Instructions, Disp# 1 box, Refills: 6, test daily, Dx : E11.9, [id number] Start Date: 06/26/17 Status: Ordered One Touch Ultra Test Strips 100 ct Start: 10/27/19 4:37:00 PM EDT, See Instructions, Disp# 100 each, Refills: 6, test daily, Dx: E11.9,Pharmacy: [facility]/pharmacy #[id number] Start Date: 10/27/19 Status: Ordered One Touch UltraMini Glucose Monitor Start: 06/26/17 8:52:00 AM EDT, See Instructions, Disp# 1 unit, Refills: 0, test daily, Dx : E11.9, [id number] Start Date: 06/26/17 Status: Ordered pravastatin 20 mg oral tablet Start: 08/28/22 5:41:00 PM EDT, See Instructions, Disp# 90 tab, Refills: 3, TAKE 1 TABLET BY MOUTH EVERYDAY AT BEDTIME, Pharmacy: [facility] STORE [id number] Start Date: 08/28/22 Status: Ordered Tradjenta 5 mg oral tablet Start: 09/19/23 8:33:00 AM EDT, See Instructions, Disp# 90 tab, Refills: 3, TAKE 1 TABLET BY MOUTH EVERY DAY, [id number] Start Date: 09/19/23 Status: Ordered traMADol 50 mg oral tablet Start: 10/02/23 8:03:00 AM EDT, See Instructions, Disp# 120 tab, Refills: 0, 1-2 tab PO q6h for pain not to exceed 400 mg/day, Note to Pharmacy: PDMP verified,, PRN: as needed for pain, [id number] Start Date: 10/02/23 Status: Ordered Vitamin D3 Start: 07/27/21 8:00:00 AM EDT Start Date: 07/27/21 Status: Ordered ZyrTEC 10 mg oral tablet Start: 09/19/23 4:38:00 PM EDT, 1 tab, PO, bid, PRN: itching Start Date: 09/19/23 Status: Ordered Problem List Condition Confirmation Course [...] patient-matched implant Results Laboratory List Name Date Prostate Specific Antigen (PSA, TOTAL) Request to FAX Report (First Location) ( ACC NO TO BE FAXED) 10/02/23 Most recent to oldest [Reference Range]: 1 PSA, Total [<7.21 ng/mL] 0.83 ng/mL (10/02/23 9:27 AM) Phone No [phone] (10/02/23 9:27 AM) Faxed on: 10/04/23 08:24 (10/02/23 9:27 AM) 1Result Comment: Testing Performed By: Dept of Pathology [facility], [address] [place] [address] Social History Social History Type Response Smoking Status Never smoked cigaret lisandra Sex Male Patient Care team information Care Team Personnel Name: Virginia Dougherty Christine A Position: Pharmacist Member Role: Pharmacy - Lifetime Name: SHREYA Green Lynn Position: Physician Unit Receptionist Exempt - Vasc Surg Member Role: Lifetime Relationship Address: Address: [address] [place] [address] 1 [place] [address] Name: MD Escobar Nandini Position: Physician - Card Heart Failure Member Role: Lifetime Relationship Address: Address: [address] [place] [address] [address] [place] [address] [place] Name: MD Isaiah, Bailee Bailey Position: Physician Member Role: Primary Care Provider Address: Address: [address] [place] [address] [address] [place] [address] Name: Virginia Maddox Kyle Position: Pharmacist Member Role: Pharmacy - Lifetime Address: Address: [address] [place] [address] [place] Care Team Related Persons Name: GUNNAR MTZ Address: home [address] [place] [phone] Name: PARI CARRASCO Address: home [address] [place] LINK [phone]
--- OUTSIDE RECORDS SUMMARY | 2023-10-31 03:30 | External Medical Summary ---
Author Name Unknown Address Unknown Organization K09:[facility] [place] [address] Laboratory Report Ordering Provider Test Date Status JAY MENDEZ 10/04/2023 12:00:55 Final Observation Date Value Abnormality Reference (Units ) Status WBC, Total 10/04/2023 12:00:55 8.67 4.00-10.8 0 (K/uL) Final RBC 10/04/2023 12:00:55 3.79 4.50-5.25 (M/uL) Final Hemoglobin 10/04/2023 12:00:55 12.0 Below low normal 14 .0-16.8 (g/dL) Final HCT 10/04/2023 12:00:55 37.3 Below low normal 40. 0-48.4 (%) Final MCV 10/04/2023 12:00:55 98.4 82.0-99.5 (fL) Final MCH 10/04/2023 12:00:55 31.7 27.0-34.0 (pg) Final MCHC 10/04/2023 12:00:55 32.2 32.0-36.0 (g/dL) Final RDW 10/04/2023 12:00:55 14.7 11.5-15.5 (%) Final Platelets 10/04/2023 12:00:55 333 140-400 (K /uL) Final MPV 10/04/2023 12:00:55 8.8 6.6-11.1 ( fL) Final Performing Location [facility] [place] [address]
--- OUTSIDE RECORDS SUMMARY | 2023-10-31 03:30 | External Medical Summary ---
Author Name Unknown Address Unknown Organization K01:[facility] [address] [place] [address] Laboratory Report Ordering Provider Test Date Status JAY MENDEZ 10/04/2023 12:00:55 Final Observation Date Value Abnormality Reference (Units ) Status CEA 10/04/2023 12:00:55 6.6 Above high normal <= 5.2 (ng/mL) Final Performing Location [facility] - [address] [place] [address]
--- OUTSIDE RECORDS SUMMARY | 2023-10-31 03:30 | External Medical Summary ---
Author Name Unknown Address Unknown Organization K09:[facility] [place] [address] Laboratory Report Ordering Provider Test Date Status JAY MENDEZ 10/04/2023 12:00:55 Final Warfarin Therapy
INR: 2 .0-3.0 conventional anticoagulation
INR: 2.5- 3.5 high intensity anticoagulation Observation Date Value Abnormality Reference (Units ) Status PT 10/04/2023 12:00:55 13.8 11.6-15.2 (seconds) Final INR 10/04/2023 12:00:55 1.1 0.8-1.2 Final Performing Location [facility] [place] [place] [address]
--- OUTSIDE RECORDS SUMMARY | 2023-10-31 03:30 | External Medical Summary | Summary of Care ---
Author Name Unknown Organization [facility] Address [address] [place] [address] Phone [phone] Care Team Providers Care Sales Hunter Name Role Phone Bailee Colon MD Primary Care Provi caroline Reason for Visit * Reason Comments Outpatient Testing Encounter Details Date Type Department Care Team (Late st Contact Info) Description 10/04/2023 11:50 AM EDT Laboratory Laboratory [facility] [place] [address] [place] [phone] [place], [facility] [address] [place] [address] Prostate cancer (HCC); Pancreatic adenocarcinoma (HCC) Allergies Active Allergy Reactions Criticality Noted Date [...] Description 10/07/2023 7:45 AM EDT Imaging Radiology [facility] 1st [facility] [address] [facility] [place] [address] 10/14/2023 8:15 AM EDT Office Visit Urology, [facility] [address] [facility] [place] [address] Berny Wakefield MD [address] [place] [address] 10/18/2023 10:30 AM EDT Office Visit Hematology/On[facility] [phone] Domi Bains MD [address] [place] [phone] Pending Results Name Type Priority Associated Diagnoses Date /Time PSA Lab Routine Prostate cancer (HCC) 10/04/2023 12:00 PM EDT PT INR Lab Routine Pancreatic adenocarcinoma (HCC) 10/04/2023 12:00 PM EDT APTT Lab Routine Pancreatic adenocarcinoma (HCC) 10/04/2023 12:00 PM EDT Health Maintenance Due Date Last [...] this encounter Visit Diagnoses Diagnosis Prostate cancer (HCC) Malignant neoplasm of prostate Pancreatic adenocarcinoma (HCC) Malignant neoplasm of pancreas, part unspecified documented in this encounter Care Teams Sales Hunter Relationship Specialty Start Date End Date Bailee Colon MD [address] [facility] [address] [place] [address] PCP - General Family Medicine 06/27/23 documented as of this encounter
--- OUTSIDE RECORDS SUMMARY | 2023-10-31 03:30 | External Medical Summary | Summary of Care ---
Author Name Unknown Organization [facility] Address [address] [place] [address] Phone [phone] Care Team Providers Care Roll Threader Operator Name Role Phone Bailee Colon MD Primary Care Provi caroline Encounter Details Date Type Department Care Team (Late st Contact Info) Description 10/07/2023 Telephone Palliative Medicine, [address] 5[address] Floor [place], [place] [phone] Chacha Bojorquez MD [address] [place] [address] Allergies Active Allergy Reactions Criticality Noted [...] functional and even drove on Saturday to [place]. He has been riding his vamp presser as well. I brought up hospice care [...] sooner Chacha Bojorquez MD Palliative Medicine Physician [facility] documented in this encounter Plan of Treatment Upcoming Encounters Date Type Department Care Team (Late st Contact Info) Description 10/14/2023 8:15 AM EDT Office Visit Urology, [facility] [address] [place] [address] Berny Wakefield MD [address] [place] [address] 10/18/2023 10:30 AM EDT Office Visit Hematology/Oncology [facility] [address] [place] [facility] [place] [address] Domi Bains MD [address] [facility] [place] [phone] Health Maintenance Due Date Last Done [...] Primary documented in this encounter Care Teams Roll Threader Operator Relationship Specialty Start Date End Date Bailee Colon MD [address] [place] [address] [address] [place] [address], [place] [address] PCP - General Family Medicine 06/27/23 documented as of this encounter
--- OUTSIDE RECORDS SUMMARY | 2023-10-31 03:30 | External Medical Summary | Summary of Care ---
Author Name Unknown Organization [facility] Address [address] [place] [address] Phone [phone] Care Team Providers Care Industrial Registered Nurse Name Role Phone Bailee Colon MD Primary Care Provi caroline Reason for Visit * Reason Onset Date Comments Test Results Imaging Study 10/02/2023 Encounter Details Date Type Department Care Team (Late st Contact Info) Description 10/02/2023 Telephone Hematology/Oncology [facility] [place] [address] [facility] [place] [address] Domi Bains MD [address] [facility] [place] [address] Test Results Imaging Study Allergies Active Allergy Reactions Criticality Noted Date [...] encounter Miscellaneous Notes * Telephone Encounter - Rojelio [place] RN - 10/04/2023 8:16 AM EDT No records received. Called [facility] to request records. They are going to fax these to our office today. * Telephone Encounter - Rojelio [place] RN - 10/02/2023 9:[address] Bojorquez, pt is coming to see Dr. Bains this Saturday. Pt recently had a CT scan/MRIdone @ [facility]. Sent JUAN @ [facility] message to request records of this for review when patient comes for consultation. documented in this encounter Plan of Treatment Upcoming Encounters Date Type Department Care Team (Late st Contact Info) Description 10/04/2023 10:30 AM EDT Office Visit Hematology/Oncology [facility] [address] [facility] [place] [address] Domi Bains MD [address] [place] [address] [place] [phone] 10/14/2023 8:15 AM EDT Office Visit Urology, [facility] [address] [place] [address] Berny Wakefield MD [address] [place] [address] Health Maintenance Due Date Last Done Comments [...] filedocumented as of this encounter Care Teams Industrial Registered Nurse Relationship Specialty Start Date End Date Bailee Colon MD 6 [facility] [address] [place] [address] PCP - General Family Medicine 06/27/23 documented as of this encounter
--- OUTSIDE RECORDS SUMMARY | 2023-10-31 03:30 | External Medical Summary ---
Author Name Unknown Address Unknown Organization K01:[facility] [place] - [address] [facility] [address] [facility] [place] [address] Laboratory Report Ordering Provider Test Date Status JAY MENDEZ 10/04/2023 12:00:55 Final Anticoagulation may affect t esting. Refer to [facility] Test Catalog for a list of effects. Observation Date Value Abnormality Reference (Units ) Status aPTT panel - Platelet poor plasma 10/04/2023 12:00:55 43 Above high normal 21-38 (seconds) Final Performing Location [facility] [place] - [facility] [place] [address]
--- OUTSIDE RECORDS SUMMARY | 2023-10-31 03:30 | External Medical Summary | Summary of Care ---
Author Name Unknown Organization [facility] Address [address] [place] [address] Phone [phone] Care Team Providers Care Factorer Name Role Phone Bailee Colon MD Primary Care Provi caroline Reason for Referral * Precert (Within 24 hrs (call dept; emergent)) - Pending Review Specialty Diagnoses / Procedures Referred By Contac t Referred To Contact Radiology Diagnoses Pancreatic adenocarcinoma (HCC) Procedures [facility] MD [address] [place] [phone] Referral ID Status Reason Start Date Expiration Date V isits Requested Visits Authorized [id number] Pending Review 10/04/2023 999 999 * Precert (Within 24 hrs (call dept; emergent)) - Pending Review Specialty Diagnoses / Procedures Referred By Contac t Referred To Contact Radiology Diagnoses Pancreatic adenocarcinoma (HCC) Procedures PET CT SKULL BASE TO MID-THIGH FDG Domi Bains MD [address] [place] [phone] Referral ID Status Reason Start Date Expiration Date V isits Requested Visits Authorized [id number] Pending Review 10/04/2023 999 999 Reason for Visit * Reason Comments 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 * Evaluate & Treat - Unlimited Visits (Within 10 days (routine)) - Authorized Specialty Diagnoses / Procedures Referred By Contac t Referred To Contact Hematology/Oncology / Hematology Oncology Diagnoses Pancreatic mass Pancreatic adenocarcinoma (HCC) Bailee Colon MD [address] [facility] [address] [place] [place] [address], [place] [address] Referral ID Status Reason Start Date Expiration Date Visits Requested Visits Authorized [id number] Authorized Specialty Services Required 09/26/2023 999 999 Encounter Details Date Type Department Care Team (Late st Contact Info) Description 10/04/2023 10:30 AM EDT Office Visit Hematology/Oncology [facility] [place] [address] [facility], [place] [phone] Domi Bains MD [address] [place] [address] [place] [phone] Pancreatic adenocarcinoma (HCC)* [...] Chief Complaint Patient presents with 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 Code Status: FULL CODE Primary Care Physician: MD Colon Ravishankar E Contact: Lisa () [phone] History of Presenting Illness Luís Murray is a 83 year old male presents for medical oncology consultation due to recent diagnosis of pancreatic cancer. He is accompanied by his , daughter and son-in-law. His medical history significant for CAD, HFpEF, A-fib s/p pacemaker, s/p TAVR, postop LBBB, T2DM, HTN, prostate cancer (on hormonal therapy). He had presented to [facility] with jaundice. 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 Ambulates independently with periodic use of a cane. No Etoh, tob or illicit drug use. Abnormal labs: T. bili 11.7, D bili 7, Alk phos > 200. ALT 230, AST 124. CT abdomen showed normal gallbladder with no CBD dilation. MRCP showed proximal ductal narrowing at the level of ampulla. He was then transferred to [facility] for further workup of painless jaundice, was [...] (on hormonal therapy). He had presented to [facility] with jaundice. 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 Ambulates independently with periodic use of a cane. No Etoh, tob or illicit drug use. Abnormal labs: T. bili 11.7, D bili 7, Alk phos > 200. ALT 230, AST 124. CT abdomen showed normal gallbladder with no CBD dilation. MRCP showed proximal ductal narrowing at the level of ampulla. He was then transferred to [facility] for further workup of painless jaundice, was [...] options ( F OLFIRINOX vs FOLFOX vs Sutton-Abraxane) discussed in detail. Pancreatic adenocarcinoma (HCC) (Primary) [...] placement referral Please get all records from [facility] Please give the pt's family reading material [...] Care as noted on the problem list. [facility] is a way you can talk to [...] comprehension of instructions. documented in this encounter Plan of Treatment Upcoming Encounters Date Type Department Care Team (Late st Contact Info) Description 10/14/2023 8:15 AM EDT Office Visit Urology, [facility] [address] [facility] [place] [address] Berny Wakefield MD 27 [facility] [place] [phone] 10/16/2023 8:00 AM EDT Office Visit Palliative Medicine [facility] 200 [place] [phone] Chacha Bojorquez MD [address] [facility] [address] 10/18/2023 10:30 AM EDT Office Visit Hematology/On[facility] [address] Domi Bains MD [address] [facility] [phone] Scheduled Orders Name Type Priority Associated Diagnoses [...] minutes following intravenous injection of 11.2 mCi 27-alszly-8-deoxyglucose (FDG) within the left hand, low dose [...] 53 minutes following intravenous injection of 11.2 rLv89-kdyiob-9-qiuktkgehltn (FDG) within the left hand, low dose [...] Correlate with physical exam. Domi Bains MD RAD NUCLEAR MED * DIFFERENTIAL, AUTOMATED (10/04/2023 12:00 PM EDT) WBC 8.67 4.00 - 10.80 K/uL 10/04/2023 12:08 PM EDT [facility] 56-02 Neutrophils % 60.6 40.0 - 75.0 % 10/04/2023 12:08 PM EDT [facility] 56- Lymphocytes % 26.4 18.0 - 42.0 % 10/04/2023 12:08 PM EDT [facility] 56- Monocytes % 9.6 1.0 - 11.0 % 10/04/2023 12:08 PM EDT [facility] 56 Eosinophils % 2.9 0.0 - 6.0 % 10/04/2023 12:08 PM EDT [facility] 56 Basophils % 0.5 0.0 - 2.0 % 10/04/2023 12:08 PM EDT [facility] 56- Absolute Neutrophils 5.26 1.80 - 7.70 K/uL 10/04/2023 12:08 PM EDT [facility] 56- Absolute Lymphocytes 2.29 1.00 - 4.80 K/ul 10/04/2023 12:08 PM EDT [facility] 56- Absolute Monocytes 0.83 0.00 - 1.10 K/uL 10/04/2023 12:08 PM EDT [facility] 56- Absolute Eosinophils 0.25 0.00 - 0.70 K/uL 10/04/2023 12:08 PM EDT [facility] 56-02 Absolute Basophils 0.04 0.00 - 0.20 K/uL 10/04/2023 12:08 PM EDT [facility] 56- Blood Venous blood specimen / Unknown Venipuncture / Unknown 10/04/2023 12:00 PM EDT 10/04/2023 12:00 PM EDT Domi Bains MD LAB BLOOD ORDERABLES [facility] [address] [place] [address] * (ABNORMAL) CBC (10/04/2023 12:00 PM EDT) WBC 8.67 4.00 - 10.80 K/uL 10/04/2023 12:[address] RBC 3.79 4.50 - 5.25 M/uL 10/04/2023 12:[address] HGB 12.0(L) 14.0 - 16.8 g/dL 10/04/2023 12:[address] HCT 37.3(L) 40.0 - 48.4 % 10/04/2023 12:[address] MCV 98.4 82.0 - 99.5 fL 10/04/2023 12:[address]T [address] MCH 31.7 27.0 - 34.0 pg 10/04/2023 12:[address]T [address] MCHC 32.2 32.0 - 36.0 g/dL 10/04/2023 12:[address]T [address] RDW 14.7 11.5 - 15.5 % 10/04/2023 12:[address] PLT 333 140 - 400 K/uL 10/04/2023 12:08 PM EDT [address] MPV 8.8 6.6 - 11.1 fL 10/04/2023 12:08 PM EDT [address] Blood Venous blood specimen / Unknown Venipuncture / Unknown 10/04/2023 12:00 PM EDT 10/04/2023 12:00 PM EDT Domi Bains MD LAB BLOOD ORDERABLES [facility] [address] [place] [address] * (ABNORMAL) APTT (10/04/2023 12:00 PM EDT) aPTT 43(H) 21 - 38 seconds 10/04/2023 6:35 PM EDT LAB[facility]ORY [facility] Blood Venous blood specimen / Unknown Venipuncture / Unknown 10/04/2023 12:00 PM EDT 10/04/2023 12:00 PM EDT Narrative LABORATORY [facility] - 10/04/2023 6:35 PM EDT Anticoagulation may affect testing. Refer to [facility] Test Catalog for a list of effects. Domi Bains MD LAB BLOOD ORDERABLES LAB[facility]ATORY [facility] [address] [place] [address] * PT INR (10/04/2023 12:00 PM EDT) Prothrombin Time 13.8 11.6 - 15.2 seconds 10/04/2023 12:23 PM EDT [facility] 56-02 INR 1.1 0.8 - 1.2 10/04/2023 12:23 PM EDT [facility] 56-02 Blood Venous blood specimen / Unknown Venipuncture / Unknown 10/04/2023 12:00 PM EDT 10/04/2023 12:00 PM EDT Narrative [facility] 56-02 - 10/04/2023 12:23 PM EDT Warfarin Therapy INR: 2.0-3.0 conventional anticoagulation INR: 2.5-3.5 high intensity anticoagulation Domi Bains MD LAB BLOOD ORDERABLES [facility] 56-[address] [place] [address] * (ABNORMAL) CEA (10/04/2023 12:00 PM EDT) CEA 6.6(H) <=5.2 ng/mL 10/04/2023 6:33 PM EDT [facility]ORY [facility] Blood Venous blood specimen / Unknown Venipuncture / Unknown 10/04/2023 12:00 PM EDT 10/04/2023 12:00 PM EDT Domi Bains MD LAB BLOOD ORDERABLES [facility] [address] [place] [address] * (ABNORMAL) CA 19-9 (10/04/2023 12:00 PM EDT) CA 19-9 1,617.0(H) <35.0 U/mL 10/04/2023 7:00 PM EDT [facility]ORY [facility] Blood Venous blood specimen / Unknown Venipuncture / Unknown 10/04/2023 12:00 PM EDT 10/04/2023 12:00 PM EDT Domi Bains MD LAB BLOOD ORDERABLES Performing Organization Address [facility]/State/ZIP Co de Phone Number LABORATORY [facility] [address] [place] [address] * (ABNORMAL) HEPATIC FUNCTION PANEL (10/04/2023 12:00 PM EDT) Pathologist [facility] Albumin 3.9 3.8 - 5.0 g/dL 10/04/2023 1:05 PM EDT [facility] 56 AST 53(H) 10 - 50 U/L 10/04/2023 1:05 PM EDT [facility] 56 Alkaline Phosphatase 171(H) 35 - 130 U/L 10/04/2023 1:05 PM EDT [facility] 56 ALT 61(H) 10 - 50 U/L 10/04/2023 1:05 PM EDT [facility] 56 Bilirubin, Total 2.0(H) <=1.2 mg/dL 10/04/2023 1:05 PM EDT [facility] 56 Bilirubin, Direct 1.3(H) 0.0 - 0.3 mg/dL 10/04/2023 1:05 PM EDT [facility] 56- Protein 7.0 6.0 - 8.3 g/dL 10/04/2023 1:05 PM EDT [facility] [id number] Blood Venous blood specimen / Unknown Venipuncture / Unknown 10/04/2023 12:00 PM EDT 10/04/2023 12:00 PM EDT Domi Bains MD LAB BLOOD ORDERABLES [facility] 56-02 [address] [place] [address] * HEPATITIS B CORE ANTIBODIES IGG AND IGM (10/04/2023 12:00 PM EDT) Hepatitis B Core Antibodies IgG and IgM Negative Negative 10/04/2023 7:46 PM EDT LABORATORY C Blood Venous blood specimen / Unknown Venipuncture / Unknown 10/04/2023 12:00 PM EDT 10/04/2023 12:00 PM EDT Domi Bains MD LAB BLOOD ORDERABLES Performing Organization Address City/[facility]/ZIP Co de Phone Number LABORATORY [facility] [address] [place] [address] * HEPATITIS B SURFACE ANTIGEN (10/04/2023 12:00 PM EDT) Hepatitis B Surface Antigen Negative Negative 10/04/2023 7:46 PM EDT LAB[facility]ATORY [facility] Blood Venous blood specimen / Unknown Venipuncture / Unknown 10/04/2023 12:00 PM EDT 10/04/2023 12:00 PM EDT Domi Bains MD LAB BLOOD ORDERABLES Performing Organization Address City/[facility]/ZIP Co de Phone Number LABORATORY [facility] [address] [place] [address] * HEPATITIS B SURFACE ANTIBODY (10/04/2023 12:00 PM EDT) Hepatitis B Surface Antibody, Quantitative <3.5 mIU/mL 10/04/2023 7:46 PM EDT LAB[facility]ORY [facility] Hepatitis B Surface Antibody, Qualitative Negative 10/04/2023 7:46 PM EDT LAB[facility]ATORY [facility] Hepatitis B Surface Antibody, Interpretation NOT immune to Hepatitis B Virus 10/04/2023 7:46 PM EDT LAB[facility]ORY [facility] Comment: POSITIVE: >=11.5 mIU/mL INDETERMINATE: 8.5-<11.5 mIU/mL NEGATIVE: <8.5 mIU/mL Blood Venous blood specimen / Unknown Venipuncture / Unknown 10/04/2023 12:00 PM EDT 10/04/2023 12:00 PM EDT Domi Bains MD LAB BLOOD ORDERABLES Performing Organization Address City/State/[facility] Co de Phone Number LABORATORY [facility] [address] [place] [address] documented in this encounter Visit Diagnoses Diagnosis Pancreatic adenocarcinoma (HCC)- Primary Malignant neoplasm of pancreas, part unspecified documented in this encounter Care Teams Factorer Relationship Specialty Start Date End Date Bailee Colon MD [address] [place] [address] [address] PCP - General Family Medicine 06/27/23 documented as of this encounter"
--- OUTSIDE RECORDS SUMMARY | 2023-10-31 03:30 | External Medical Summary | Summary of Care ---
Author Name Unknown Organization [facility] [address] [place] [address] Phone [phone] Care Team Providers Care Assembler Latches And Springs Name Role Phone Bailee Colon MD Primary Care Provi caroline Encounter Details Date Type Department Care Team (Late st Contact Info) Description 10/04/2023 Orders Only Hematology/Oncology, [facility] [address] [place] [address] Domi Bains MD [address] [place] [phone] Allergies Active Allergy Reactions Criticality Noted Date [...] No 09/26/2023 Does the household have a [facility] source of income? (Household - for ages [...] Description 10/07/2023 7:45 AM EDT [facility] [address] [facility] [place] [address] 10/14/2023 8:15 AM EDT Office Visit Urology, [facility] [address] [facility] [place] [address] Berny Wakefield MD [address] [place] [phone] 10/18/2023 10:30 AM EDT Office Visit Hematology/Oncology [facility] [phone] Domi Bains MD [address] [place] [phone] Pending Results Name Type Priority Associated Diagnoses Date /Time CT ABD/PELVIS W IV AND W ORAL CONTRAST Medical Imaging Routine 09/12/2023 Health Maintenance Due Date Last Done Comments [...] filedocumented as of this encounter Care Teams Assembler Latches And Springs Relationship Specialty Start Date End Date Bailee Colon MD [address] [address] PCP - General Family Medicine 06/27/23 documented as of this encounter
--- OUTSIDE RECORDS SUMMARY | 2023-10-31 03:30 | External Medical Summary | Summary of Care ---
Author Name Unknown Organization [facility] Address [address] [place] [address] Phone [phone] Care Team Providers Care Water Pollution Control Technician Name Role Phone Bailee Colon MD Primary Care Provi caroline Reason for Visit * Reason Onset Date Comments Scheduling 10/07/2023 [facility] Encounter Details Date Type Department Care Team (Late st Contact Info) Description 10/07/2023 Telephone Radiology, [address] [address] Yael James I, BETH Scheduling ([facility]) Allergies Active Allergy Reactions Criticality Noted Date [...] 09/26/2023 Does the household have a [facility] source [facility] income? (Household - for [...] encounter Miscellaneous Notes * Telephone Encounter - Yael James I RN - 10/07/2023 12:05 PM EDT Spoke to patient's spouse, Lisa, to schedule mediport insertion. At this time the family has decided to not forgo any treatment and let the cancer run its course. Lisa aware that if the family changes their mind to let the doctor know and we will gladly get patient scheduled documented in this encounter Plan of Treatment Upcoming Encounters Date Type Department Care Team (Late st Contact Info) Description 10/14/2023 8:15 AM EDT Office Visit Urology, [facility] 132 [facility] [place] [address] Berny Wakefield MD [address] [place] [address] 10/16/2023 8:00 AM EDT Office Visit Palliative Medicine [facility] 200 [facility] [place], [place] [phone] Chacha Bojorquez MD 400 [place] [address] 10/18/2023 10:30 AM EDT Office Visit Hematology/Oncology [facility] [address] [place] [address] Domi Bains MD [address] [facility] [place] [phone] Health Maintenance Due Date Last Done Comments [...] filedocumented as of this encounter Care Teams Water Pollution Control Technician Relationship Specialty Start Date End Date Bailee Colon MD [address] [place] [address] [place], [place] [address] PCP - General Family Medicine 06/27/23 documented as of this encounter
--- OUTSIDE RECORDS SUMMARY | 2023-10-31 03:31 | External Medical Summary | Summary of Care ---
Author Name Unknown Organization [facility] Address [address] [place] [address] Phone [phone] Care Team Providers Care Php Website Developer Name Role Phone Bailee Colon MD Primary Care Provi caroline Reason for Visit * Reason Comments NEW PATIENT * Evaluate & Treat - Unlimited Visits (Within 10 days (routine)) - Authorized Specialty Diagnoses / Procedures Referred By Contac t Referred To Contact Hospice and Palliative Medicine / Palliative Medicine Diagnoses Pancreatic mass Pancreatic adenocarcinoma (HCC) Bailee Colon MD [address] [place] [id number] Referral ID Status Reason Start Date Expiration Date Visits Requested Visits Authorized [id number] Authorized Specialty Services Required 09/26/2023 999 [id number] Encounter Details Date Type Department Care Team (Late st Contact Info) Description 10/02/2023 8:30 AM EDT Office Visit Palliative Medicine [facility] [address] [place] [address] Chacha Bojorquez MD [address] [place] [address] [phone] Pancreatic adenocarcinoma (HCC)*; Encounter for palliative care Allergies Active Allergy Reactions Criticality Noted Date Comments Ciprofloxacin 09/24/2023 documented as of this encounter (statuses as of 10/02/2023) Medications Medication Sig Dispensed Refills Start Date [...] as of this encounter (statuses as of 10/02/2023) Active Problems Problem Noted Date Diagnosed Date Elevated prostate specific antigen (PSA) 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 Dermatitis 04/03/2006 documented as of this encounter (statuses as of 10/02/2023) Social History Tobacco Use Types Packs/Day Years [...] No 09/26/2023 Does the household have a [facility] source of income? (Household - for ages [...] Sign Reading Time Taken Comments Blood Pressure 110/68 10/02/2023 8:23 AM EDT Pulse 102 10/02/2023 8:23 AM EDT Temperature 36.2 C (97.2 F) 10/02/2023 8:23 AM ED T Respiratory Rate 16 10/02/2023 8:23 AM EDT Oxygen Saturation 92% 10/02/2023 8:23 AM EDT Inhaled Oxygen Concentration - - Weight 96 kg (211 lb 9.6 oz) 10/02/2023 8:23 AM EDT Height - - Body Mass Index 35.21 06/27/2023 1:50 PM EDT documented in this encounter Patient Instructions * Patient Instructions* Chacha Bojorquez MD - 10/02/2023 8:59 AM EDT Our Palliative Medicine Clinic is [...] needed. You can contact our office at [phone], which is our clinic in [place], or you can message us on [email or web address]. If you have an emergency outside of these hours, we recommend calling your primary care clinic, Oncology office, or going to the ER if you have a medical emergency. documented in this encounter Progress Notes * Chacha Bojorquez MD - 10/02/2023 8:30 AM EDT Images from the original note were not included. Palliative Medicine Outpatient Consult Note [facility] Palliative Medicine Outreach [address] [place] [address] Name: Luís Murray Date: 10/02/2023 Referring Provider: Bailee Colon MD Reason for Consult: Goals of care; Pain and symptom management Patient accompanied by Lisa and daughter Yanni, history obtained from patient and HPI: Luís Murray is a 83 year old male with a primary diagnosis of pancreatic cancer, recently diagnosed. He has a hx of CAD, HFpEF, A fib s/p pacer, TAVR, HTN and hx of prostate CA (on hormonal therapy, follows with [facility]). He was admitted to [facility] recently for painless jaundice and had an ERCP, during which they found a [id number] mass in the pancreatic head. CBD stent was placed and f/u scheduled in 2 months. Biopsy showed this was pancreatic adenocarcinoma. He had f/u with his PCP andwas referred to Oncology and Palliative for goals of care and symptom management. Overall, they are doing OK processing all the information. They will meet w/oncology on Sat at [facility]. He is aware he has a pancreatic mass and had a stent but that is really the extent of his understanding. He did have a UTI while this was all going on but that seems to have cleared up now. With regards to his prostate CA, he has been doing well with the Lupron shots, usually it lasts 3 mo but his PSA remained low for a year. He will get a new PSA level today as well. Palliative symptoms: Pain: no pain, hasn't had any pain throughout this time. Nausea/Vomiting: no Appetite: good Constipation: good Confusion: not really Sleep issues: sleeping most of the day right now, was still mowing the lawn then had long naps Dyspnea: no Mood issues: no Falls: no Other: Functional Status: - Palliative Performance Scale: 90% - Activities of Daily Living: (bolded items indicate areas of independence) 09/04 BADL (transfer, toilet, continence, bathe, dress self, feed self) 10/05 IADL (meds, transport, telephone, shop, housekeeping, meal prep, money management) - Ambulates: with cane SHx: Family Support: x 65 years, grew up in [place], went to school together. 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 Eyes: anicteric, sclera and conjunctiva normal. Neck: no stridor Chest: normal respiratory effort Abdominal: nondistended Extremities: no edema Neuro: alert, oriented to person, place, and time Psych: normal mood and affect Data Review: External notes reviewed: - Reviewed notes from PCP Dr Colon, had f/u on 09/25, he reviewed pathology with them - Reviewed notes from Ad Terminal Makeup Operator Rebekah Green 09/25, who spoke to them, noted pt is jaundiced and has lost weigt Lab / Imaging Results: last PSA 17.89, elevated on 06/06/23 Information obtained from daughter Yanni and for collateral history Discussion with other team members: I discussed patient with PCP about plan of care Decision-making Capacity: Does Patient have Decisional Capacity? y Does Patient have a Healthcare Agent? Y, family Discussion with Patient & Family: Met with patient and family Introduced role of Outpatient Palliative Medicine team and reviewed symptoms as above. Reviewed patient's/family's understanding of current medical situation. They are still gathering information at this time. We talked about how Oncology will review options which may include things like chemotherapy, surgery, immunotherapy, etc, and all decisions should be made with his goals / prefe rences at the center of it. I did bring up hospice care or following in palliative clinic until there is more evidence of decline as an option as well. Will try to obtain labwork / imaging from external sources prior to that appt. Discussed ACP as below Advanced Care Planning: Reviewed 3 pathways of care, will hold off until they meet w/Oncology ASSESSMENT/PLAN: Luís Murray is a/an 83 year old male referred for consultation to Palliative Medicine with the primary diagnosis of: Pancreatic adenocarcinoma, pending visit with Oncology on Sat Recent admission to [facility] where he had an ERCP with CBD stent placed. Wants to move care to be local if possible. 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 and drives Recent UTI, seems to have resolved with abx which finished on Thursday 09/28 Hx of prostate CA, on Lupron injections Type 2 DM Atrial fibrillation, on Eliquis Goals of care - pending further Oncology evaluation Recommendations: Asked nursing to get external facility scans in prep for his appt with Dr Bains He is not having any symptoms at this time, did not change any medications Will obtain CBC and CMP since he is getting labwork for his PSA anyway Offered soaker soda worker or HH or Behavioral health referral - not needed at this time Follow up in 2-4 weeks, nurse call in 1 weeks. Pt is not able to do video visits. Next visit with me. Thank you for this consult. We appreciate the opportunity to take part in the care of your patient. Note routed back to referring provider Bailee Colon MD and PCP Bailee Colon MD I spent a total of 61 minutes on the date of service in preparation, delivery, and documentation ofthe care provided to Luís Murray excluding any time spent in the performance of separately billed services. MD Yasmin Warner Palliative Medicine [phone] documented in this encounter Nursing Notes * So [facility]enas MED ASSIST - 10/02/2023 8:23 AM EDT Patient identifed by name and birthdate Do you have any concerns about pain management for today's visit? Yes. Patient instructed to discuss pain concerns with provider during the visit today Living Will or Advance Directive for Health Care as noted on the problem list. [facility] is a way you can talk to your provider on line through e-mail. Would you like to sign up? I can activate it for you? ALREADY ACTIVE Filed Vitals: 10/02/23 0823 BP: 110/68 Pulse: 102 Resp: 16 Temp: 36.2 C (97.2 F) TempSrc: Tympanic SpO2: 92% Weight: 96 kg (211 lb 9.6 oz) Patient was instructed to not get [...] Office Visit Hematology/Oncology [facility] [address] [place] [address] Domi Bains MD [address] [place] [address] [place] [phone] 10/14/2023 8:15 AM EDT Office Visit Urology, [facility] [address] [place] [address] Berny Wakefield MD [address] [address] Scheduled Orders Name Type Priority Associated Diagnoses Orde r Schedule CBC WITH WBC DIFFERENTIAL Lab Routine Pancreatic adenocarcinoma (HCC) Expected: 10/02/2023, Expires: 10/01/2024 COMPREHENSIVE METABOLIC PANEL Lab Routine Pancreatic adenocarcinoma (HCC) Expected: 10/02/2023, Expires: 10/01/2024 Health Maintenance Due Date Last Done Comments [...] Primary Malignant neoplasm of pancreas, part unspecified Encounter for palliative care documented in this encounter Care Teams Php Website Developer Relationship Specialty Start Date End Date Bailee Colon MD [address] [facility] [facility] [address] [place] [address] PCP - General Family Medicine 06/27/23 documented as of this encounter"
--- OUTSIDE RECORDS SUMMARY | 2023-10-31 03:31 | External Medical Summary ---
Author Name Unknown Address Unknown Organization K09:[facility] [place] [address] Laboratory Report Ordering Provider Test Date Status DOLORES MELTON 10/02/2023 15:15:55 Final Observation Date Value Abnormality Reference (Units ) Status SYNC LEUKOCYTES IN BLOOD BY AUTOMATED COUNT 10/02/2023 15:15:55 10.37 4.00-10.80 (K/uL) Final Segs 10/02/2023 15:15:55 58.4 40.0-75.0 (%) Final Lymphs % 10/02/2023 15:15:55 29.1 18.0-42.0 (%) Final Monos 10/02/2023 15:15:55 9.6 1.0-11.0 (%) Final Eosinophils 10/02/2023 15:15:55 2.4 0.0-6.0 (%) Final Basos 10/02/2023 15:15:55 0.5 0.0-2.0 (%) Final Absolute Segs 10/02/2023 15:15:55 6.05 1.80-7.70 (K/uL) Final Lymphs, absolute 10/02/2023 15:15:55 3.02 1.00-4.80 (K/ul) Final Monos, Abs 10/02/2023 15:15:55 1.00 0.00-1.10 (K/uL) Final Eos, Abs 10/02/2023 15:15:55 0.25 0.00-0.70 (K/uL) Final Basos, Abs 10/02/2023 15:15:55 0.05 0.00-0.20 (K/uL) Final Performing Location [facility] [address]
--- OUTSIDE RECORDS SUMMARY | 2023-10-31 03:31 | External Medical Summary ---
Author Name Unknown Address Unknown Organization K09:[facility] [address] [place] [address] Laboratory Report Ordering Provider Test Date Status DOLORES MELTON 10/02/2023 15:15:55 Final Observation Date Value Abnormality Reference (Units ) Status BUN 10/02/2023 15:15:55 25 Above high normal 6-20 (mg/dL) Final Creatinine 10/02/2023 15:15:55 1.0 0.6-1.2 (mg/dL) Final Glomerular filtration rate/1.73 sq M.predicted [Volume Rate/Area] in Serum, Plasma or Blood by Creatinine-based formula (CKD-EPI) 10/02/2023 15:15:55 77 >=60 (mL/min) Final eGFR is calculated based on the CKD-EPI 2020 equation Sodium 10/02/2023 15:15:55 135 135-146 (m mol/L) Final Potassium 10/02/2023 15:15:55 5.1 3.5-5.1 (m mol/L) Final Cl 10/02/2023 15:15:55 96 Below low normal 98- 107 (mmol/L) Final CO2 10/02/2023 15:15:55 26 22-32 (mmo l/L) Final Anion gap 10/02/2023 15:15:55 13 7-15 (mmol /L) Final Glucose 10/02/2023 15:15:55 177 Above high normal 70 -120 (mg/dL) Final Albumin 10/02/2023 15:15:55 3.8 3.8-5.0 (g /dL) Final AST (Aspartate aminotransferase) 10/02/2023 15:15:55 52 Above high normal 10-50 (U/L) Final Alk Phos 10/02/2023 15:15:55 188 Above high normal 35 -130 (U/L) Final Bilirubin, Total 10/02/2023 15:15:55 2.1 Above high no rmal <=1.2 (mg/dL) Final Calcium 10/02/2023 15:15:55 9.9 8.4-10.2 ( mg/dL) Final Protein 10/02/2023 15:15:55 6.6 6.0-8.3 (g /dL) Final ALT (Alanine aminotransferase) 10/02/2023 15:15:55 69 Above high normal 10-50 (U/L) Final Performing Location [facility] [place] [address]
--- OUTSIDE RECORDS SUMMARY | 2023-10-31 03:31 | External Medical Summary | Summary of Care ---
Author Name Unknown Organization [facility] Address [address] [place] [address] Phone [phone] Care Team Providers Care Nursing Agency Manager Name Role Phone Bailee Colon MD Primary Care Provi caroline Reason for Visit * Reason Onset Date Comments Test Results Imaging Study 10/02/2023 Encounter Details Date Type Department Care Team (Late st Contact Info) Description 10/02/2023 Telephone Hematology/Oncology [facility] [address] [facility] [place] [address] Domi Bains MD [address] [facility] [place] [address] Test Results Imaging Study Allergies [...] Pt recently had a CT scan/MRIdone @ [facility]. Sent JUAN @ [facility] message to request records of this for review when patient comes for consultation. documented in this encounter Plan of Treatment Upcoming Encounters Date Type Department Care Team (Late st Contact Info) Description 10/04/2023 10:30 AM EDT Office Visit Hematology/Oncology [facility] [place] [address] [facility] [place] [phone] Domi Bains MD [address] [place] [phone] 10/14/2023 8:15 AM EDT Office Visit Urology, [facility] [address] [facility] [place] [address] Berny Wakefield MD [address] [address] Health Maintenance Due Date Last Done Comments [...] filedocumented as of this encounter Care Teams Nursing Agency Manager Relationship Specialty Start Date End Date Bailee Colon MD [address], [place] [address] PCP - General Family Medicine 06/27/23 documented as of this encounter
--- OUTSIDE RECORDS SUMMARY | 2023-10-31 03:31 | External Medical Summary | Summary of Care ---
Author Name Unknown Organization [facility] Address [address] [place] [address] Phone [phone] Care Team Providers Care Cutter And Edge Trimmer Name Role Phone Bailee Colon MD Primary Care Provi caroline Reason for Visit * Reason Comments NEW PATIENT * Evaluate & Treat - Unlimited Visits (Within 10 days (routine)) - Authorized Specialty Diagnoses / Procedures Referred By Contac t Referred To Contact Hospice and Palliative Medicine / Palliative Medicine Diagnoses Pancreatic mass Pancreatic adenocarcinoma (HCC) Bailee Colon MD [address] [place] [address] Referral ID Status Reason Start Date Expiration Date Visits Requested Visits Authorized [id number] Authorized Specialty Services Required 09/26/[phone] Encounter Details Date Type Department Care Team (Late st Contact Info) Description 10/02/2023 8:30 AM EDT Office Visit Palliative Medicine [facility] [address] [place] [address] Chacha Bojorquez MD [address] [place] [address] [phone] Pancreatic adenocarcinoma (HCC)*; Encounter for palliative care [...] No 09/26/2023 Does the household have a [facility] source of income? (Household - [...] needed. You can contact our office at [phone], which is our clinic in [place], or you can message us on [employer]. If you have an emergency outside of these hours, we recommend calling your primary care clinic, Oncology office, or going to the ER if you have a medical emergency. documented in this encounter Progress Notes * Chacha Bojorquez MD - 10/02/2023 8:30 AM EDT Images from the original note were not included. Palliative Medicine Outpatient Consult Note [facility] Palliative Medicine Outreach [address] [place] [address] Name: Luís Murray Date: 10/02/2023 Referring Provider: Bailee Colon MD Reason for Consult: Goals of care; Pain and symptom management Patient accompanied by Lisa and daughter Yanni, history obtained from patient and HPI: Líus Murray is a 83 year old male with a primary diagnosis of pancreatic cancer, recently diagnosed. He has a hx of CAD, HFpEF, A fib s/p pacer, TAVR, HTN and hx of prostate CA (on hormonal therapy, follows with [facility]). He was admitted to [facility] recently for painless jaundice and had an ERCP, during which they found a [id number] mass in the pancreatic head. CBD stent was placed and f/u scheduled in 2 months. Biopsy showed this was pancreatic adenocarcinoma. He had f/u with his PCP andwas referred to Oncology and Palliative for goals of care and symptom management. Overall, they are doing OK processing all the information. They will meet w/oncology on Sat at [facility]. He is aware he has a pancreatic [...] Support: x 65 years, grew up in [place], went to school together. 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 MD Yasmin Warner Palliative Medicine [phone] documented in this encounter Nursing Notes * [...] [place] [address] Domi Bains MD [address] [place] [address] [place] [phone] 10/14/2023 8:15 AM EDT Office Visit Urology, [facility] [address] [place] [address] Berny Wakefield MD [address] [place] [address] [address] Scheduled Orders Name Type Priority Associated Diagnoses [...] care documented in this encounter Care Teams Cutter And Edge Trimmer Relationship Specialty Start Date End Date Bailee Colon MD [address] [facility] [address] [place] [address] PCP - General Family Medicine 06/27/23 documented as of this encounter"
--- OUTSIDE RECORDS SUMMARY | 2023-10-31 03:31 | External Medical Summary | Summary of Care ---
Author Name Unknown Organization [facility] Address [address] [place] [address] Phone [phone] Care Team Providers Care Skilled Nursing Facilities Professional Name Role Phone Bailee Colon MD Primary Care Provi caroline Reason for Visit * Reason Onset Date Comments MyCode Nonconsent - Not interested at this time 10/02/2023 Encounter Details Date Type Department Care Team (Late st Contact Info) Description 10/02/2023 Orders Only Outcomes Research Department [address] [place], [place] [phone] Viri Conner CHRA MyCode Nonconsent Documentation Allergies Active Allergy Reactions Criticality Noted Date [...] as of this encounter Progress Notes * Viri Conner CHRA - 10/02/2023 10:09 AM EDT MyCode Nonconsent Documentation Luís Murray was approached in the clinic regarding participation in the MyCode Project and did not consent. documented in this encounter Plan of Treatment Upcoming Encounters Date Type Department Care Team (Late st Contact Info) Description 10/04/2023 10:30 AM EDT Office Visit Hematology/Oncology [facility] [address] [facility] [place] [address] Domi Bains MD [address] [place] [phone] 10/14/2023 8:15 AM EDT Office Visit Urology, [facility] [address] [facility] [place] [address] Berny Wakefield MD [address] [place] [address] Health Maintenance Due Date Last Done [...] filedocumented as of this encounter Care Teams Skilled Nursing Facilities Professional Relationship Specialty Start Date End Date Bailee Colon MD [address] [facility] [address] [address] PCP - General Family Medicine 06/27/23 documented as of this encounter
--- OUTSIDE RECORDS SUMMARY | 2023-10-31 03:31 | External Medical Summary ---
Author Name Unknown Address Unknown Organization K01:[facility] [address] [facility] [place] [address] Laboratory Report Ordering Provider Test Date Status VANESSAJAY 10/04/2023 12:00:55 Final Observation Date Value Abnormality Reference (Units ) Status Hepatitis B virus core Ab [Presence] in Serum 10/04/2023 12:00:55 Negative Negative Final Performing Location [facility] [address] [place] [address]
--- OUTSIDE RECORDS SUMMARY | 2023-10-31 03:31 | External Medical Summary ---
Author Name Unknown Address Unknown Organization K01:[facility] [address] [place] [address] Laboratory Report Ordering Provider Test Date Status TREVOR ARTHUR 10/04/2023 12:00:55 Final Observation Date Value Abnormality Reference (Units ) Status PSA 10/04/2023 12:00:55 0.79 <4.10 (ng/ mL) Final Performing Location [facility] - [address] [place] [address]
--- OUTSIDE RECORDS SUMMARY | 2023-10-31 03:31 | External Medical Summary | Continuity of Care Document ---
Author Name Unknown Organization [facility] [address] [place] [address] DR Address [address], [place] [id number] Care Team Providers Care Gin Clerk Name Role Phone Bailee Colon Primary Care Physician [phone] Encounter [facility] [id number] Date(s): 09/25/23 - 09/25/[address] Psychiatric [address] [facility], [address] [place] [address] [phone] Encounter Diagnosis Acute UTI(Discharge Diagnosis) - 09/25/23 Pancreatic mass(Discharge Diagnosis) - 09/25/23 Pancreatic adenocarcinoma(Discharge Diagnosis) - 09/25/23 Type 2 diabetes mellitus with diabetic neuropathy, unspecified(Discharge Diagnosis) - 09/25/23 Discharge Disposition: Home or Self Care Attending Physician: MD Colon Ravishankar E Referring Physician: MD Colon Ravishankar E Allergies, Adverse Reactions, Alerts Substance Criticality Severity Reaction Reaction Severity Status ciprofloxacin Dysequilbrium Ac tive Assessment and Plan Extracted from: Title:Office Visit Note Author:MD Colon Ravishan kar E Date:09/25/23 1.Acute UTI - intermediate resistance and intolerance to macrobid prescribed - Replace with augmentin 875mgpo bid x5 days - Suspect this is behind at least some of his malaise/fatigue 2.Pancreatic mass - New dx, referralto oncology and palliative concurrently - Lengthy discussion of what this means, prognosis at a general level, and potential options to clarify with oncology and palliative 3.Pancreatic adenocarcinoma - as above 4.Type 2 diabetes mellitus with diabetic neuropathy, unspecified - Elevated sugars since going through all of this and since steroids given for spinal pain - Advised to not be too aggressive at this stage, can refine therapy over time - AM fasting readingshave been 180-200s which is not critical f/u as scheduled 1month. Time: 40mins 5 - pre-visit chart review 30 - visit, inclusive of history, exam, and discussion of assessment/plan 5 - post-visit documentation/orders/coordination of care Immunizations Given and [...] q6h, Disp# 8.5 g, Refills: 3, Pharmacy: [facility]/pharmacy #[id number] Start Date: 05/02/21 Status: Ordered Augmentin 875 mg-125 mg oral tablet Start: 09/25/23 8:31:00 AM EDT, amoxicillin 1 tab, PO, q12h, Disp# 10, Refills: 0, Pharmacy: [facility]/pharmacy #[id number] Start Date: 09/25/23 Stop Date: 09/30/23 Status: Ordered cyclobenzaprine 5 mg oral tablet Start: 08/23/23 10:08:00 AM EDT, 1 tab, PO, qhs, Disp# 30 tab, Refills: 0, PRN: NEEDED FOR SPASM,Pharmacy: [facility] STORE [id number] Start Date: 08/23/23 Status: Ordered dutasteride 0.5 mg oral capsule Start: 07/20/20 11:13:00 AM EDT, 1 cap, PO, Daily, Disp# 30 cap, Refills: 3, Pharmacy: [facility]/pharmacy #[id number] Start Date: 07/20/20 Status: Ordered Eliquis 5 mg oral tablet Start: 03/01/23 9:38:00 AM EST, 1 tab, PO, bid, Disp# 60 tab, Refills: 11, Pharmacy: [facility] STORE [id number] Start Date: 03/01/23 Status: Ordered Entresto 24 mg-26 mg oral tablet Start: 04/25/23 11:47:00 AM EST, 1 tab, PO, bid, Disp# 60 tab, Refills: 11, [id number] Start Date: 04/25/23 Status: Ordered Flomax 0.4 mg oral capsule Start: 11/15/20 8:06:00 AM EDT, 1 cap, PO, qAM, Disp# 90 cap, Refills: 3, Pharmacy: [facility]/pharmacy #[id number] Start Date: 11/15/20 Status: Ordered Flonase 50 mcg/inh nasal spray Start: 03/27/23 12:45:00 PM EST, 1 spray, each nostril, Daily, Disp# 16 g, Refills: 3, [id number] Start Date: 03/27/23 Status: Ordered furosemide 20 mg oral tablet Start: 12/26/21 8:58:00 AM EDT, See Instructions, Disp# 90 tab, Refills: 4, as needed for weight gain 2 lbs in 24 hours or 5 lbs in a week, Pharmacy: [facility] [employer] [id number] Start Date: 12/26/21 Status: Ordered inhaler spacer Start: 10/14/20 11:17:00 AM EDT, See Instructions, Disp# 1 each, dispense 1, Pharmacy: [facility]/pharmacy #[id number] Start Date: 10/14/20 Status: Ordered metFORMIN 500 mg oral tablet Start: 06/03/23 9:33:00 AM EST, See Instructions, Disp# 360 tab, Refills: 1, TAKE 2 TABLETS BY MOUTH WITH NOON MEAL AND WITH EVENING MEAL, Pharmacy: [facility] STORE [id number] Start Date: 06/03/23 Status: Ordered metoprolol succinate 25 mg oral tablet, extended release Start: 07/24/23 9:44:00 AM EDT, 1.5 tab, PO, Daily, Disp# 135 tab, Refills: 3, Pharmacy: [facility]/pharmacy #[id number] Start Date: 07/24/23 Status: Ordered multivitamin Start: 07/27/21 8:00:00 AM EDT, 1 tab, PO, Daily Start Date: 07/27/21 Status: Ordered One Touch Finepoint (25G) Lancets Start: 06/26/17 8:54:00 AM EDT, See Instructions, Disp# 1 box, Refills: 6, test daily, Dx : E11.9, [id number] Start Date: 06/26/17 Status: Ordered One Touch Ultra Test Strips 100 ct Start: 10/27/19 4:37:00 PM EDT, See Instructions, Disp# 100 each, Refills: 6, test daily, Dx: E11.9,Pharmacy: [facility] #[id number] Start Date: 10/27/19 Status: Ordered One Touch UltraMini Glucose Monitor Start: 06/26/17 8:52:00 AM EDT, See Instructions, Disp# 1 unit, Refills: 0, test daily, Dx : E11.9, [id number] Start Date: 06/26/17 Status: Ordered pravastatin 20 mg oral tablet Start: 08/28/22 5:41:00 PM EDT, See Instructions, Disp# 90 tab, Refills: 3, TAKE 1 TABLET BY MOUTH EVERYDAY AT BEDTIME, [facility]acy: [id number] Start Date: 08/28/22 Status: Ordered Tradjenta 5 mg oral tablet Start: 09/19/23 8:33:00 AM EDT, See Instructions, Disp# 90 tab, Refills: 3, TAKE 1 TABLET BY MOUTH EVERY DAY, [id number] Start Date: 09/19/23 Status: Ordered traMADol 50 mg oral tablet Start: 09/06/23 9:18:00 AM EDT, See Instructions, Disp# 120 tab, Refills: 0, 1-2 tab PO q6h for pain not to exceed 400 mg/day, Note to Pharmacy: PDMP verified,, PRN: as needed for pain, Pharmacy: [facility][id number] Start Date: 09/06/23 Status: Ordered Vitamin D3 Start: 07/27/21 8:00:00 AM EDT Start Date: 07/27/21 Status: Ordered ZyrTEC 10 mg oral tablet Start: 09/19/23 4:38:00 PM EDT, 1 tab, PO, bid, PRN: itching Start Date: 09/19/23 Status: Ordered Mental Status 09/25/23 Barriers to Learning one year None evide nt Mandatory Health Literacy Documentation Yes Health Literacy Communication Barriers N ever Primary Language Syriac Problem List Condition Confirmation Course Effective Dates [...] Effective Dates Health Status Clinical Service Informant Acute UTI Discharge Diagnosis 09/25/23 Non-Specified Pancreatic mass Discharge Diagnosis 09/25/23 Non-Specified Type 2 diabetes mellitus with diabetic neuropathy, unspecified Discharge Diagnosis 09/25/23 Non-Specified Pancreatic adenocarcinoma Discharge Diagnosis 09/25/23 Procedures Procedure Date Related Diagnosis Body Site [...] to oldest [Reference Range]: 1 Patient Weight 95.7 kg (09/25/23 8:08 AM) Temperature [36.5-37.9 DegC] 35.5 DegC *LOW* (09/25/23 8:08 AM) Blood Pressure 92/70mmHg (09/25/23 8:08 AM) Cuff Pulse Pressure 22 mmHg (09/25/23 8:08 AM) Social History Social History Type Response Smoking Status Never smoked cigaret lisandra Sex Male FCM Outpt Note * MD Isaiah, Bailee Bailey: PERFORM Event Display: FCM Outpt Note Authored Date: [id number] Chief Complaint Pt is here today not feeling well. low appetite. Just discharged from [facility] on saturday. [facility] History of Present Illness Alejandra is an 83yoM here today with feeling generally unwell since his sugars spiked recently. He was notably recently admitted for painless jaundice. Health history notable for CAD, HFpEF, Afib s/ppacer, s/p TAVR, post-op LBBB, T2DM, HTN, and prostate CA on hormone therapy. He had an ERCP performed inpatient which showed [id number] mass in pancreatic head requiring biopsy with distal CBD stricture that needed spincterotomy/stent placement. He was recommended to have f/u ERCP in 2 months which he was referred and is pending scheduled for. Jaundice has improved but notresolved as they advised him it would. He did incidentally have urine culture + at discharge with dysuria and was discharged on macrobid pending cultureresults. Culture came back intermediate sensitivity to this and he reports ongoing dysuria and intolerance to macrobid.Wishes to switch to alternative antibiotic. Chart review today shows pancreatic mass is positive for adenocarcinoma. They were not made awareof this at hospital or since discharge. They would like a consultation with Dr. Ramos in [facility] they had a poor experience with PS during this recent hospitalization. Review of Systems 01/12pt ROS reviewed/negative except as noted in HPI. Physical Exam Vitals & Measurements T:35.5C BP:92/70 SpO2:95% WT:95.7kg WT:95.700kg(Dosing) PHQ2 Data(Data Documented on:09/25/2023 08:05) Emotional health assessment NEGATIVE GENERAL APPEARANCE: The patient is alert, oriented and in no acute distress. Visibly jaundiced and clammy/lower energy. VITALS: As above. HEENT: Head is normocephalic/atraumatic. CARDIOVASCULAR: +2 radialpulses. LUNGS: Respirations even and unlabored. EXTREMITIES: No cyanosis, clubbing or edema. NEUROLOGICAL: Grossly non-focal exam. SKIN: Warm and dry without any rash Assessment/Plan 1.Acute UTI - intermediate resistance and intolerance to macrobid prescribed - Replace with augmentin 875mgpo bid x5 days - Suspect this is behind at least some of his malaise/fatigue 2.Pancreatic mass - New dx, referralto oncology and palliative concurrently - Lengthy discussion of what this means, prognosis at a general level, and potential options to clarify with oncology and palliative 3.Pancreatic adenocarcinoma - as above 4.Type 2 diabetes mellitus with diabetic neuropathy, unspecified - Elevated sugars since going through all of this and since steroids given for spinal pain - Advised to not be too aggressive at this stage, can refine therapy over time - AM fasting readingshave been 180-200s which is not critical f/u as scheduled 1month. 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 Exercise [...] due11/15/21and every 1year Due Adult COVID-19 Vaccination due09/25/23Unknown Frequency Shingles Vaccine due09/25/23One-time only Due In Future Adult Influenza Vaccine not due until09/29/23and every 1year Diabetes Management A1c not due until09/16/24and every 366day Adult Social Determinants of Health Screening not due until09/18/24and every 366day Satisfied(in the past 1 year) Satisfied Adult Influenza Vaccine on01/31/23.Satisfied by BETH Manning, Maddie Body Mass Index on09/16/23.Satisfied by PRATIK Link, Alpa Diabetes Management A1c on09/15/23.Satisfied by Contributor_system, [email or web address] Diabetes Nephropathy Management on12/12/22.Satisfied by Contributor[employer]system, [email or web address] Diabetic Eye Exam on03/26/23.Satisfied by DUSTIN Hawthorne Lynnae Lipid Screening on12/12/22.Satisfied by Contributor[employer]system, [email or web address] Electronic Signature on File Electronically Reviewed/Signed by: Bailee Colon MD Author Signature Dt/Tm:09/25/2023 08:46 AM Department of Family Medicine [facility] Patient Care team information Care Team Personnel Name: Virginia Dougherty Christine A Position: Pharmacist Member Role: Pharmacy - Lifetime Name: SHREYA Green Lynn Position: Physician Manager Hospice Exempt - [facility] Surg Member Role: Lifetime Relationship Address: Address: [address] [place] [address] [address] [place] [address] [place] Name: MD Escobar Nandini Position: Physician - Card Heart Failure Member Role: Lifetime Relationship Address: Address: [address] [facility] [address] [place] [address] [place] Name: MD Isaiah, Bailee Bailey Position: Physician Member Role: Primary Care Provider Address: Address: [address] [facility] [address] [place] [address] [place] Name: Virginia Maddox Kyle Position: Pharmacist Member Role: Pharmacy - Lifetime Address: Address: [address] [place] [address] [place] Care Team Related Persons Name: BIBI GUNNAR Address: home [address] [facility] [phone] Name: PARI CARRASCO Address: home [address] [facility] [place] [phone]"
--- OUTSIDE RECORDS SUMMARY | 2023-10-31 03:31 | External Medical Summary | Summary of Care ---
Author Name Unknown Organization [facility] Address [address] [place] [address] Phone [phone] Care Team Providers Care Band Log Mill And Carriage Operator Name Role Phone Bailee Colon MD Primary Care Provi caroline Reason for Visit * Reason Comments Outpatient Testing Encounter Details Date Type Department Care Team (Late st Contact Info) Description 10/02/2023 3:10 PM EDT Laboratory Laboratory [facility] [place] [address] [place] [phone] [place], [address] [place] [address] Prostate cancer (HCC); Pancreatic adenocarcinoma (HCC) Allergies [...] 10/04/2023 10:30 AM EDT Office Visit Hematology/Oncology [facility] [address] [place] [phone] Domi Bains MD [address] [facility] [place] [phone] 10/14/2023 8:15 AM EDT Office Visit Urology, [facility] [address] [facility] [place] [address] Berny Wakefield MD [address] [place] [address] Pending Results Name Type Priority Associated Diagnoses Date /Time COMPREHENSIVE METABOLIC PANEL Lab Routine Pancreatic adenocarcinoma (HCC) 10/02/2023 3:15 PM EDT Health Maintenance Due Date Last [...] Procedure Name Priority Date/Time Associated Diagnosis Comments DIFFERENTIAL, AUTOMATED Routine 10/02/2023 3:15 PM EDT Pancreatic adenocarcinoma (HCC) CBC Routine 10/02/2023 3:15 PM EDT Pancreatic adenocarcinoma (HCC) CBC Routine 10/02/2023 3:15 PM EDT Pancreatic adenocarcinoma (HCC) documented in this encounter Results * DIFFERENTIAL, AUTOMATED (10/02/2023 3:15 PM EDT) WBC 10.37 4.00 - 10.80 K/uL 10/02/2023 3:20 PM EDT [facility] 56-02 Neutrophils % 58.4 40.0 - 75.0 % 10/02/2023 3:20 PM EDT [facility] 56-02 Lymphocytes % 29.1 18.0 - 42.0 % 10/02/2023 3:20 PM EDT [facility] 56-02 Monocytes % 9.6 1.0 - 11.0 % 10/02/2023 3:20 PM EDT [facility] 56-02 Eosinophils % 2.4 0.0 - 6.0 % 10/02/2023 3:20 PM EDT [facility] 56-02 Basophils % 0.5 0.0 - 2.0 % 10/02/2023 3:20 PM EDT [facility] 56-02 Absolute Neutrophils 6.05 1.80 - 7.70 K/uL 10/02/2023 3:20 PM EDT [facility] 56 Absolute Lymphocytes 3.02 1.00 - 4.80 K/ul 10/02/2023 3:20 PM EDT [facility] 56 Absolute Monocytes 1.00 0.00 - 1.10 K/uL 10/02/2023 3:20 PM EDT [facility] 56 Absolute Eosinophils 0.25 0.00 - 0.70 K/uL 10/02/2023 3:20 PM EDT [facility] 56 Absolute Basophils 0.05 0.00 - 0.20 K/uL 10/02/2023 3:20 PM EDT [facility] 56 Blood Venous blood specimen / Unknown Venipuncture / Unknown 10/02/2023 3:15 PM EDT 10/02/2023 3:16 PM EDT Chacha Bojorquez MD LAB BLOOD ORDE [facility] Organization Address City/State/[facility] Co de Phone Number [facility] [address] [place] [address] * (ABNORMAL) CBC (10/02/2023 3:15 PM EDT) WBC 10.37 4.00 - 10.80 K/uL 10/02/2023 3:20 PM EDT [facility] 56 RBC 3.70 4.50 - 5.25 M/uL 10/02/2023 3:20 PM EDT [facility] 56 HGB 11.7(L) 14.0 - 16.8 g/dL 10/02/2023 3:20 PM EDT [facility] 56 HCT 36.4(L) 40.0 - 48.4 % 10/02/2023 3:20 PM EDT [facility] 56 MCV 98.4 82.0 - 99.5 fL 10/02/2023 3:20 PM EDT [facility] 56 MCH 31.6 27.0 - 34.0 pg 10/02/2023 3:20 PM EDT [facility] 56 MCHC 32.1 32.0 - 36.0 g/dL 10/02/2023 3:20 PM EDT [facility] RDW 14.5 11.5 - 15.5 % 10/02/2023 3:20 PM EDT [facility] PLT 324 140 - 400 K/uL 10/02/2023 3:20 PM EDT [facility] MPV 8.9 6.6 - 11.1 fL 10/02/2023 3:20 PM EDT [facility] Blood Venous blood specimen / Unknown Venipuncture / Unknown 10/02/2023 3:15 PM EDT 10/02/2023 3:16 PM EDT Chacha Bojorquez MD LAB BLOOD ORDE KEYLA [facility] Organization Address City/State/ZIP Co de Phone Number [facility] [address] [place] [address] documented in this encounter Visit Diagnoses Diagnosis Prostate cancer (HCC) Malignant neoplasm of prostate Pancreatic adenocarcinoma (HCC) Malignant neoplasm of pancreas, part unspecified documented in this encounter Care Teams Band Log Mill And Carriage Operator Relationship Specialty Start Date End Date Bailee Colon MD [address] [facility] [address] [place] [address] [place] [address] [place] [address] PCP - General Family Medicine 06/27/23 documented as of this encounter
--- OUTSIDE RECORDS SUMMARY | 2023-10-31 03:31 | External Medical Summary ---
Author Name Unknown Address Unknown Organization K[facility] [place] [address] Laboratory Report Ordering Provider Test Date Status DOLORES MELTON 10/02/2023 15:15:55 Final Observation Date Value Abnormality Reference (Units ) Status WBC, Total 10/02/2023 15:15:55 10.37 4.00-10.8 0 (K/uL) Final RBC 10/02/2023 15:15:55 3.70 4.50-5.25 (M/uL) Final Hemoglobin 10/02/2023 15:15:55 11.7 Below low normal 14 .0-16.8 (g/dL) Final HCT 10/02/2023 15:15:55 36.4 Below low normal 40. 0-48.4 (%) Final MCV 10/02/2023 15:15:55 98.4 82.0-99.5 (fL) Final MCH 10/02/2023 15:15:55 31.6 27.0-34.0 (pg) Final MCHC 10/02/2023 15:15:55 32.1 32.0-36.0 (g/dL) Final RDW 10/02/2023 15:15:55 14.5 11.5-15.5 (%) Final Platelets 10/02/2023 15:15:55 324 140-400 (K /uL) Final MPV 10/02/2023 15:15:55 8.9 6.6-11.1 ( fL) Final Performing Location [facility] [place] [address]
--- OUTSIDE RECORDS SUMMARY | 2023-10-31 03:31 | External Medical Summary | Continuity of Care Document ---
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 Role Phone Jin Colon Primary Care Physician [phone] Encounter [facility] [id number] Date(s): 09/15/23 - 09/20/[address] [phone] Encounter Diagnosis Chronic heart failure with preserved ejection fraction (HFpEF)(Discharge Diagnosis) - 09/15/23 S/P ERCP(Discharge Diagnosis) - 09/19/23 Hyperbilirubinemia(Discharge Diagnosis) - 09/19/23 Afib(Discharge Diagnosis) - 09/15/23 Acute bacterial simple cystitis(Discharge Diagnosis) - 09/20/23 BPH associated with nocturia(Discharge Diagnosis) - 09/15/23 Painless jaundice(Discharge Diagnosis) - 09/15/23 Pancreatic mass(Discharge Diagnosis) - 09/20/23 Pancreatic cyst(Discharge Diagnosis) - 09/20/23 Transaminitis(Discharge Diagnosis) - 09/19/23 Discharge Disposition: Home or Self Care Attending Physician: MD Jalloh Christopher R Admitting Physician: Levi Wakefield DO, Megan H Referring Physician: MD Joseph, Lenard De La Cruz Allergies, Adverse Reactions, Alerts Substance Criticality Severity Reaction Reaction Severity Status ciprofloxacin Dysequilbrium Ac tive Functional Status 09/20/23 Neurological Symptoms None ADLs Minimal assistance Facial Symmetry Symmetric Gait Steady Swallowing Difficulty None Level of Consciousness Neuro Alert Hallucinations Present None Speech Pattern Clear 09/19/23 History of Fall in Last 3 Months Clemente N o Presence of Secondary Diagnosis Clemente Ye s Use of Ambulatory Aid Clemente Crutches/can e/walker IV/Heparin Lock Fall Risk Clemente Yes Gait/Transferring Fall Risk Clemente Normal /bedrest/immobile Mental Status Fall Risk Clemente Oriented t o own ability Clemente Fall Risk Score 50 Clemente Fall Risk High risk Immunizations Given and Recorded Vaccine Date Status [...] Disp# 8.5 g, Refills: 3, Pharmacy: [facility]/pharmacy #[id number] Start Date: 05/02/21 Status: Ordered cyclobenzaprine 5 mg oral tablet Start: 08/23/23 10:08:00 AM EDT, 1 tab, PO, qhs, Disp# 30 tab, Refills: 0, PRN: NEEDED FOR SPASM,Pharmacy: [id number] Start Date: 08/23/23 Status: Ordered dutasteride 0.5 mg oral capsule Start: 07/20/20 11:13:00 AM EDT, 1 cap, PO, Daily, Disp# 30 cap, Refills: 3, Pharmacy: [facility]/pharmacy #[id number] Start Date: 07/20/20 Status: Ordered Eliquis 5 mg oral tablet Start: 03/01/23 9:38:00 AM EST, 1 tab, PO, bid, Disp# 60 tab, Refills: 11, Pharmacy: [facility] [id number] Start Date: 03/01/23 Status: Ordered Entresto 24 mg-26 mg oral tablet Start: 04/25/23 11:47:00 AM EST, 1 tab, PO, bid, Disp# 60 tab, Refills: 11, Pharmacy: [facility]/pharmacy #[id number] Start Date: 04/25/23 Status: Ordered Flomax 0.4 mg oral capsule Start: 11/15/20 8:06:00 AM EDT, 1 cap, PO, qAM, Disp# 90 cap, Refills: 3, Pharmacy: [facility]/pharmacy #[id number] Start Date: 11/15/20 Status: Ordered Flonase 50 mcg/inh nasal spray Start: 03/27/23 12:45:00 PM EST, 1 spray, each nostril, Daily, Disp# 16 g, Refills: 3, Pharmacy: [facility]/pharmacy #[id number] Start Date: 03/27/23 Status: Ordered furosemide 20 mg oral tablet Start: 12/26/21 8:58:00 AM EDT, See Instructions, Disp# 90 tab, Refills: 4, as needed for weight gain 2 lbs in 24 hours or 5 lbs in a week, Pharmacy: [id number] Start Date: 12/26/21 Status: Ordered HumaLOG Sliding Scale Moderate Dose Range: SSI, injection, subQ, 09/19/23 12:00:00 PM EDT, 09/19/23 11:05:03 AM EDT, Estimated correction need for patients using total insulin daily dose between 61 and 100 units., 09/16/23 11:50:00 EDT Start Date: 09/19/23 Stop Date: 09/19/23 Status: Completed HumaLOG Sliding Scale Moderate Dose Range: SSI, injection, subQ, 09/18/23 4:30:00 PM EDT, 09/18/23 5:11:20 PM EDT, Estimated correction need for patients using total insulin daily dose between 61 and 100 units., 09/16/23 11:50:00 EDT Start Date: 09/18/23 Stop Date: 09/18/23 Status: Completed HumaLOG Sliding Scale Moderate Dose Range: SSI, injection, subQ, 09/18/23 10:00:00 PM EDT, 09/18/23 9:24:48 PM EDT, Estimated correction need for patients using total insulin daily dose between 61 and 100 units., 09/16/23 11:50:00 EDT Start Date: 09/18/23 Stop Date: 09/18/23 Status: Completed inhaler spacer Start: 10/14/20 11:17:00 AM EDT, See Instructions, Disp# 1 each, dispense 1, [id number] Start Date: 10/14/20 Status: Ordered Macrobid 100 mg oral capsule Start: 09/20/23 10:14:00 AM EDT, 1 cap, PO, bid, Disp# 14 cap, Refills: 0, with food., Pharmacy: [facility] [place] Start Date: 09/20/23 Stop Date: 09/27/23 Status: Ordered meclizine 25 mg oral tablet Start: 02/18/23 2:48:00 PM EST, See Instructions, Disp# 15 tab, Refills: 1, 1 tab PO daily PRN dizziness, PRN: as needed for dizziness, Pharmacy: [facility]/pharmacy #[id number] Start Date: 02/18/23 Status: Ordered metFORMIN 500 mg oral tablet Start: 06/03/23 9:33:00 AM EST, See Instructions, Disp# 360 tab, Refills: 1, TAKE 2 TABLETS BY MOUTH WITH NOON MEAL AND WITH EVENING MEAL, Pharmacy: [id number] Start Date: 06/03/23 Status: Ordered metoprolol succinate (ER) 37.5 mg, XL tablet, PO, 09/20/23 9:00:00 AM EDT, 09/20/23 9:15:42 AM EDT, 09/15/23 19:44:00 EDT Start Date: 09/20/23 Stop Date: 09/20/23 Status: Completed metoprolol succinate 25 mg oral tablet, extended release Start: 07/24/23 9:44:00 AM EDT, 1.5 tab, PO, Daily, Disp# 135 tab, Refills: 3, Pharmacy: [facility]/pharmacy #[id number] Start Date: 07/24/23 Status: Ordered multivitamin Start: 07/27/21 8:00:00 AM EDT, 1 tab, PO, Daily Start Date: 07/27/21 Status: Ordered One Touch Finepoint (25G) Lancets Start: 06/26/17 8:54:00 AM EDT, See Instructions, Disp# 1 box, Refills: 6, test daily, Dx : E11.9, Pharmacy: [facility]/pharmacy #[id number] Start Date: 06/26/17 Status: Ordered One Touch Ultra Test Strips 100 ct Start: 10/27/19 4:37:00 PM EDT, See Instructions, Disp# 100 each, Refills: 6, test daily, Dx: E11.9,[id number] Start Date: 10/27/19 Status: Ordered One Touch UltraMini Glucose Monitor Start: 06/26/17 8:52:00 AM EDT, See Instructions, Disp# 1 unit, Refills: 0, test daily, Dx : E11.9, [id number] Start Date: 06/26/17 Status: Ordered pravastatin 20 mg oral tablet Start: 08/28/22 5:41:00 PM EDT, See Instructions, Disp# 90 tab, Refills: 3, TAKE 1 TABLET BY MOUTH EVERYDAY AT BEDTIME, Pharmacy: [id number] Start Date: 08/28/22 Status: Ordered Tradjenta 5 mg oral tablet Start: 09/19/23 8:33:00 AM EDT, See Instructions, Disp# 90 tab, Refills: 3, TAKE 1 TABLET BY MOUTH EVERY DAY, [id number] Start Date: 09/19/23 Status: Ordered traMADol 50 mg oral tablet Start: 09/06/23 9:18:00 AM EDT, See Instructions, Disp# 120 tab, Refills: 0, 1-2 tab PO q6h for pain not to exceed 400 mg/day, Note to Pharmacy: PDMP verified,, PRN: as needed for pain, [id number] Start Date: 09/06/23 Status: Ordered Vitamin D3 Start: 07/27/21 8:00:00 AM EDT Start Date: 07/27/21 Status: Ordered ZyrTEC 10 mg oral tablet Start: 09/19/23 4:38:00 PM EDT, 1 tab, PO, bid, PRN: itching Start Date: 09/19/23 Status: Ordered Mental Status 09/19/23 Communication Barrier Present Yes 09/18/23 Primary Language Kyrgyz Problem List Condition Confirmation Course Effective Dates [...] Effective Dates Health Status Clinical Service Informant BPH associated with nocturia Discharge Diagnosis 09/15/23 Non-Specified Painless jaundice Discharge Diagnosis 09/15/23 Non-Specified Afib Discharge Diagnosis 09/15/23 Non-Specified Chronic heart failure with preserved ejection fraction (HFpEF) Discharge Diagnosis 09/15/23 Non-Specified Transaminitis Discharge Diagnosis 09/19/23 Non-Specified Hyperbilirubinemia Discharge Diagnosis 09/19/23 Non-Specified S/P ERCP Discharge Diagnosis 09/19/23 Non-Specified Acute bacterial simple cystitis Discharge Diagnosis 09/20/23 Non-Specified Pancreatic mass Discharge Diagnosis 09/20/23 Non-Specified Pancreatic cyst Discharge Diagnosis 09/20/23 Non-Specified Procedures Procedure Date Related Diagnosis Body [...] patient-matched implant Results Laboratory List Name Date Glucose Meter (GLUCOSE METER) 09/20/23 Complete Blood Count w Differential (CBC w Platelets and Diff) 09/20/23 Comprehensive Metabolic Panel (CMP) 09/19 Prothrombin Time w/ INR (PT/INR) 09/20/23 Glucose Meter (GLUCOSE METER) 09/19/23 Glucose Meter (GLUCOSE METER) 09/19/23 Urine Analysis w/ Reflexed Microscopic. (UA w/ Reflexed Microscopic.) 09/19/23 Complete Blood Count w Differential (CBC w Platelets and Diff) 09/19/23 Comprehensive Metabolic Panel (CMP) 09/18 Prothrombin Time w/ INR (PT/INR) 09/19/23 Complete Blood Count w Differential (CBC w Platelets and Diff) 09/18/23 Comprehensive Metabolic Panel (CMP) 09/17 Prothrombin Time w/ INR (PT/INR) 09/18/23 Blood Glucose Monitoring Nurse POC (Gluc ose Meter Nurse POC) 09/16/23 Blood Glucose Monitoring Nurse POC (Gluc ose Meter Nurse POC) 09/16/23 Blood Glucose Monitoring Nurse POC (Gluc ose Meter Nurse POC) 09/16/23 Ammonia Level 09/15/23 Hemoglobin A1C 09/15/23 Most recent to oldest [Reference Range]: 1 2 3 eGFR CKD-EPI [>60 mL/min/1.73 m2] 75 mL/min/1.73 m2 (09/20/23 8:37 AM) 73 mL/min/1.73 m2 (09/19/23 8:34 AM) 68 mL/min/1.73 m2 (09/18/23 11:01 AM) Blood Glucose [70-120 mg/dL] 212 mg/dL 1 *HI* (09/19/23 11:05 AM) 296 mg/dL 2 *HI* (09/18/23 9:24 PM) 263 mg/dL 3 *HI* (09/18/23 5:11 PM) Estimated Average Glucose 192 mg/dL (09/15/23 9:00 PM) Blood Glucose Ref Range [70 - 120 mg/dl] (09/16/23 4:39 PM) [70 - 120 mg/dl] (09/16/23 1:06 PM) [70 - 120 mg/dl] (09/16/23 10:32 AM) Estimated CrCl 60.51 mL/min (09/20/23 9:50 AM) 59.32 mL/min (09/19/23 9:21 AM) 56.02 mL/min (09/18/23 12:37 PM) MPV [9.0-12.2 fL] 11.5 fL (09/20/23 8:37 AM) NOT AVAILABLE fL (09/19/23 8:34 AM) 11.6 fL (09/18/23 11:01 AM) Immature Gran% 0.3 % (09/20/23 8:37 AM) 0.6 % (09/19/23 8:34 AM) 0.7 % (09/18/23 11:01 AM) Neut% 66.3 % (09/20/23 8:37 AM) 59.2 % 4 (09/19/23 8:34 AM) 52.5 % (09/18/23 11:01 AM) Lymph% 23.0 % (09/20/23 8:37 AM) 28.0 % (09/19/23 8:34 AM) 31.1 % (09/18/23 11:01 AM) [place]% 9.1 % (09/20/23 8:37 AM) 9.6 % (09/19/23 8:34 AM) 13.7 % (09/18/23 11:01 AM) Baso% 0.4 % (09/20/23 8:37 AM) 0.6 % (09/19/23 8:34 AM) 0.9 % (09/18/23 11:01 AM) Eos% 0.9 % (09/20/23 8:37 AM) 2.0 % (09/19/23 8:34 AM) 1.1 % (09/18/23 11:01 AM) Immat Gran, Abs [0-0.4 K/uL] 0.02 K/uL (09/20/23 8:37 AM) 0.04 K/uL (09/19/23 8:34 AM) 0.04 K/uL (09/18/23 11:01 AM) Neut, Abs [2.0-7.7 K/uL] 5.02 K/uL (09/20/23 8:37 AM) 4.08 K/uL (09/19/23 8:34 AM) 2.84 K/uL (09/18/23 11:01 AM) Lymph, Abs [1.0-3.4 K/uL] 1.74 K/uL (09/20/23 8:37 AM) 1.93 K/uL (09/19/23 8:34 AM) 1.68 K/uL (09/18/23 11:01 AM) [place], Abs [0-1.0 K/uL] 0.69 K/uL (09/20/23 8:37 AM) 0.66 K/uL (09/19/23 8:34 AM) 0.74 K/uL (09/18/23 11:01 AM) Baso, Abs [0-0.1 K/uL] 0.03 K/uL (09/20/23 8:37 AM) 0.04 K/uL (09/19/23 8:34 AM) 0.05 K/uL (09/18/23 11:01 AM) Eos, Abs [0-0.5 K/uL] 0.07 K/uL (09/20/23 8:37 AM) 0.14 K/uL (09/19/23 8:34 AM) 0.06 K/uL (09/18/23 11:01 AM) Type of Diff: AUTO (09/20/23 8:37 AM) AUTO (09/19/23 8:34 AM) AUTO (09/18/23 11:01 AM) RDW [11.5-14.2 %] 18.4 % *HI* (09/20/23 8:37 AM) 18.1 % *HI* (09/19/23 8:34 AM) 17.7 % *HI* (09/18/23 11:01 AM) Squamous Epithelial Cells (u) FEW (09/19/23 11:57 AM) Anion Gap [5-14 mmol/L] 12 mmol/L (09/20/23 8:37 AM) 13 mmol/L (09/19/23 8:34 AM) 14 mmol/L (09/18/23 11:01 AM) Alb [3.5-5.2 g/dL] 3.5 g/dL (09/20/23 8:37 AM) 3.7 g/dL (09/19/23 8:34 AM) 3.6 g/dL (09/18/23 11:01 AM) Alk Phos [40-130 unit/L] 452 unit/L 5 *HI* (09/20/23 8:37 AM) 455 unit/L 6 *HI* (09/19/23 8:34 AM) 377 unit/L 7 *HI* (09/18/23 11:01 AM) ALT [0-41 unit/L] 213 unit/L *HI* (09/20/23 8:37 AM) 245 unit/L *HI* (09/19/23 8:34 AM) 204 unit/L *HI* (09/18/23 11:01 AM) AST [0-40 unit/L] 173 unit/L *HI* (09/20/23 8:37 AM) 218 unit/L *HI* (09/19/23 8:34 AM) 165 unit/L *HI* (09/18/23 11:01 AM) Bact (u) [NONE-NONE] NONE (09/19/23 11:57 AM) Bili (u) [NEG] MODERATE *Abnormal* (09/19/23 11:57 AM) BUN [6-23 mg/dL] 28 mg/dL *HI* (09/20/23 8:37 AM) 29 mg/dL *HI* (09/19/23 8:34 AM) 29 mg/dL *HI* (09/18/23 11:01 AM) Ca [8.4-10.2 mg/dL] 9.6 mg/dL (09/20/23 8:37 AM) 9.8 mg/dL (09/19/23 8:34 AM) 9.6 mg/dL (09/18/23 11:01 AM) Cl- [98-107 mmol/L] 101 mmol/L (09/20/23 8:37 AM) 102 mmol/L (09/19/23 8:34 AM) 101 mmol/L (09/18/23 11:01 AM) HCO3 [22-29 mmol/L] 24 mmol/L (09/20/23 8:37 AM) 21 mmol/L *LOW* (09/19/23 8:34 AM) 21 mmol/L *LOW* (09/18/23 11:01 AM) Cret [0.70-1.30 mg/dL] 1.00 mg/dL 8 (09/20/23 8:37 AM) 1.02 mg/dL 9 (09/19/23 8:34 AM) 1.08 mg/dL 10 (09/18/23 11:01 AM) HbA1c [<5.7 %] 8.3 % 11 *HI* (09/15/23 9:00 PM) Glu [74-109 mg/dL] 321 mg/dL 12 *HI* (09/20/23 8:37 AM) 211 mg/dL 13 *HI* (09/19/23 8:34 AM) 197 mg/dL 14 *HI* (09/18/23 11:01 AM) Gluc Meter [74-109 mg/dL] 283 mg/dL *HI* (09/20/23 7:31 AM) 197 mg/dL *HI* (09/19/23 10:04 PM) 142 mg/dL *HI* (09/19/23 5:40 PM) Hct [39-48 %] 38.2 % *LOW* (09/20/23 8:37 AM) 39.6 % (09/19/23 8:34 AM) 37.0 % *LOW* (09/18/23 11:01 AM) Hgb [13.0-17.0 g/dL] 12.6 g/dL *LOW* (09/20/23 8:37 AM) 13.4 g/dL (09/19/23 8:34 AM) 12.5 g/dL *LOW* (09/18/23 11:01 AM) INR [0.9-1.1] 1.0 15 (09/20/23 8:37 AM) 1.0 16 (09/19/23 8:34 AM) 1.1 17 (09/18/23 11:01 AM) K [3.5-5.1 mmol/L] 4.5 mmol/L (09/20/23 8:37 AM) 4.2 mmol/L (09/19/23 8:34 AM) 3.9 mmol/L (09/18/23 11:01 AM) Ketones [NEG mg/dL] TRACE mg/dL *Abnormal* (09/19/23 11:57 AM) Leuk Est [NEG] LARGE *Abnormal* (09/19/23 11:57 AM) MCH [28-33 pg] 31.0 pg (09/20/23 8:37 AM) 31.8 pg (09/19/23 8:34 AM) 31.2 pg (09/18/23 11:01 AM) MCHC [32-36 g/dL] 33.0 g/dL (09/20/23 8:37 AM) 33.8 g/dL (09/19/23 8:34 AM) 33.8 g/dL (09/18/23 11:01 AM) MCV [81-96 fL] 94.1 fL (09/20/23 8:37 AM) 93.8 fL (09/19/23 8:34 AM) 92.3 fL (09/18/23 11:01 AM) Na [136-145 mmol/L] 137 mmol/L (09/20/23 8:37 AM) 136 mmol/L (09/19/23 8:34 AM) 136 mmol/L (09/18/23 11:01 AM) NH3 [11-51 umol/L] 35 umol/L (09/15/23 9:14 PM) Nitrite (u) [NEG] NEGATIVE (09/19/23 11:57 AM) Plts [150-350 K/uL] 250 K/uL (09/20/23 8:37 AM) CLUMPED K/uL 18 (09/19/23 8:34 AM) 208 K/uL (09/18/23 11:01 AM) PT [12.0-14.2 seconds] 13.1 seconds (09/20/23 8:37 AM) 13.4 seconds (09/19/23 8:34 AM) 14.0 seconds (09/18/23 11:01 AM) RBC [4.40-5.60 M/uL] 4.06 M/uL *LOW* (09/20/23 8:37 AM) 4.22 M/uL *LOW* (09/19/23 8:34 AM) 4.01 M/uL *LOW* (09/18/23 11:01 AM) T Bili [0.0-1.2 mg/dL] 9.4 mg/dL 19 *HI* (09/20/23 8:37 AM) 14.0 mg/dL *HI* (09/19/23 8:34 AM) 12.2 mg/dL *HI* (09/18/23 11:01 AM) Prot [6.4-8.3 g/dL] 6.8 g/dL (09/20/23 8:37 AM) 7.3 g/dL (09/19/23 8:34 AM) 6.7 g/dL (09/18/23 11:01 AM) Appear (u) SLIGHTLY CLOUDY (09/19/23 11:57 AM) Color (u) CORNELIO (09/19/23 11:57 AM) Glu (u) [NEG mg/dL] NEGATIVE mg/dL (09/19/23 11:57 AM) Hgb (u) [NEG] LARGE *Abnormal* (09/19/23 11:57 AM) pH (u) [5.0-8.0 unit] 6.0 unit (09/19/23 11:57 AM) Prot (u) [NEG mg/dL] 100 mg/dL *Abnormal* (09/19/23 11:57 AM) RBC (u) [0-4 /HPF] 50+ /HPF (09/19/23 11:57 AM) Urobili [0.1-1.0 EU/dL] 2.0 EU/dL *HI* (09/19/23 11:57 AM) SG [1.005-1.030] 1.013 (09/19/23 11:57 AM) WBC (u) [0-4 /HPF] 50+ /HPF (09/19/23 11:57 AM) WBC [4.0-10.4 K/uL] 7.57 K/uL (09/20/23 8:37 AM) 6.89 K/uL (09/19/23 8:34 AM) 5.41 K/uL (09/18/23 11:01 AM) 1Result Comment: Performed at: [address] [place] [address] 2Result Comment: Performed at: [address] [place] [address] 3Result Comment: Performed at: [address] [place] [address] 4Result Comment: AUTOMATED DIFFERENTIAL 5Result Comment: Low levels of ALKP may indicate a deficiency in zinc, magnesium, or malnutritionbutcan also be an indicator of a rare genetic disease hypophosphatasia (HPP). 6Result Comment: Low levels of ALKP may indicate a deficiency in zinc, magnesium, or malnutritionbutcan also be an indicator of a rare genetic disease hypophosphatasia (HPP). 7Result Comment: Low levels of ALKP may indicate a deficiency in zinc, magnesium, or malnutritionbutcan also be an indicator of a rare genetic disease hypophosphatasia (HPP). 8Result Comment: ICTERIC SPECIMEN 9Result Comment: ICTERIC SPECIMEN 10Result Comment: ICTERIC SPECIMEN 11Result Comment: ADA Recommended [place] Reference Range: Normal: <5.7% Prediabetes: 5.7-6.4% Diabetes: >6.4% 12Result Comment: ADA recommendation for FASTING Serum/Plasma Glucose: Normal: 70-100 mg/dL Prediabetes: 100-125 mg/dL Diabetes: 126 mg/dL or higher 13Result Comment: ADA recommendation for FASTING Serum/Plasma Glucose: Normal: 70-100 mg/dL Prediabetes: 100-125 mg/dL Diabetes: 126 mg/dL or higher 14Result Comment: ADA recommendation for FASTING Serum/Plasma Glucose: Normal: 70-100 mg/dL Prediabetes: 100-125 mg/dL Diabetes: 126 mg/dL or higher 15Result Comment: Suggested therapeutic range for low-intensity Coumadin therapy for venous thromboembolism is INR 2.0-3.0 (ex: atrial fibrillation, history of TIA/stroke). For high risk patients, the suggested therapeutic range is INR 2.5-3.5 (ex: mechanical prosthetic valves). 16Result Comment: Suggested therapeutic range for low-intensity Coumadin therapy for venous thromboembolism is INR 2.0-3.0 (ex: atrial fibrillation, history of TIA/stroke). For high risk patients, the suggested therapeutic range is INR 2.5-3.5 (ex: mechanical prosthetic valves). 17Result Comment: Suggested therapeutic range for low-intensity Coumadin therapy for venous thromboembolism is INR 2.0-3.0 (ex: atrial fibrillation, history of TIA/stroke). For high risk patients, the suggested therapeutic range is INR 2.5-3.5 (ex: mechanical prosthetic valves). 18Result Comment: WITHIN NORMAL LIMITS 19Result Comment: CHECKED Orders for Microbiology Reports Name Date Urine Culture 09/19/23 Microbiology Reports TEST:Urine.Cx STATUS:Auth (Verified) BODY SITE: SOURCE:Urine COLLECTED DATE/TIME:09/19/23 12:09 PM Status FINAL 09/22/2023 ORGANISM:Klebsiella pneumoniae Susceptibilty: Klebsiella pneumoniae Tested Drug Broth MALCOLM Dilution Broth Interpr etation Trimeth-Sulfamethoxazole >2/38 Resista nt Tetracycline >8 Resistant Piperacillin Tazobac <=8 Suscept. Nitrofurantoin 64 Intermed. Levofloxacin <=0.5 Suscept. Gentamicin <=2 Suscept. Ciprofloxacin <=0.25 Suscept. Cefazolin <=2 Suscept. Ampicillin >16 Resistant Ampicillin/Sulbactam 16/8 Intermed. Amoxicillin/Clavulanic A <=8/4 Suscept . Radiology Reports * Exam Date Time Procedure Performing Provider Status 09/18/23 9:01 AM Echo TransTHORacic TTE Limited w/ Cont Aydee Villela; Final Notes: (Echo TransTHORacic TTE Limited w/ Cont) Reason For Exam: hypokinesis, elevated PASP and severe MR/TR on TTE in 03/2023, needs repeat prior to procedure on 09/17 Echo TransTHORacic TTE Limited w/ Cont Report Signatures Finalized by Dr. Amada Escobar on 09/18/2023 11:47 AM Promoted to Fellow by Dr. Zeus Roberto MD on 09/18/2023 11:18 AM [place] Act 112: No-No further action needed Summary 1. Failed 2D images were enhanced [...] diastolic function have improved; LVEF is similar. Patient Info Name: ALEJANDRA MURRAY Age: 83 years : 1940 Gender: Male Ht: 166 cm Wt: 93 kg BSA: 2.11 m2 HR: 84 bpm BP: 132 / 74 mmHg Heart Rhythm: Sinus Arrhythmia Technical Quality: Poor Exam Date: 09/18/2023 7:45 AM Exam Location: [address] [place] [address] Patient Status: Inpatient Staff Ordering Physician: Sherley Garland Cushion Spring Assembler: Aydee Villela Attending Physician: Deirdre Martínez Study Info CPT J3490 - 98794 - 24200 - 06500 - Indications Z01.810 - Preoperative Exam I361 - Nonrheumatic tricuspid (valve) insufficiency I340 - Nonrheumatic mitral (valve) insufficiency Procedure(s) * A limited two-dimensional transthoracic echocardiogram was performed. * Color Doppler was performed. * Limited spectral Doppler was performed. * Failed 2D images were enhanced with Definity per lab protocol. * Cushion Spring Assembler, Aydee Villela, provided education about ultrasound enhancing agent to the patient. Exam Type: Cardiac Basic Left Ventricle Normal left ventricular size and systolic function. Estimated Ejection Fraction 45%. Grade II diastolic dysfunction of the left ventricle (pseudonormal filling pattern). Mild hypokinesis of the apical anteroseptal and inferoseptal left ventricular wall(s) and apex. Asymmetric basal septal hypertrophy. Right Ventricle Normal right ventricular size and function. Ventricular Septum Septal motion consistent with abnormal electrical activation. Left Atrium Severely dilated left atrium size. Right Atrium Right atrial dilation. 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 AV velocity 1.66 m/s; AV peak gradient 11 mm Hg ; DI=0.47 Calcuklated MISBAH =1.48 cm sq. Pulmonic Valve Pulmonic valve not well visualized. Mitral Valve Structurally unremarkable mitral valve with no significant flow abnormalities. Tricuspid Valve Mild tricuspid regurgitation. Pulmonary Arteries Pulmonary arterial systolic pressure is estimated at 35 mmHg. Pericardium/Pleural No significant pericardial effusion. Inferior Vena Cava Normal IVC size with reduced inspiratory collapse. Estimated right atrial pressure is 8 mmHg. Estimated right atrial pressure is 8 mmHg. Aorta The aortic root is not well visualized. Left Ventricular Outflow Tract Name Value Normal LVOT Doppler LVOT Peak Velocity 0.78 m/s LVOT Peak Gradient 2 mmHg Pulmonic Valve Name Value Normal RVOT Doppler RVOT Peak Velocity 0.68 m/s RVOT Peak Gradient 2 mmHg PV Doppler PV Peak Gradient 2 mmHg Mitral Valve Name Value Normal MV Doppler MV PHT 51 ms MV Diastolic Function MV E Peak Velocity 0.22 m/s <=0.50 MV A Peak Velocity 1.01 m/s MV E/A 0.22 <=0.80 MV Decel Time 176 ms MV Annular TDI MV Septal s' Velocity 2.61 cm/s MV Septal e' Velocity 4.06 cm/s >=7.00 MV E/e' (Septal) 5.5 <=8.0 MV Lateral s' Velocity 5.22 cm/s MV Lateral e' Velocity 7.16 cm/s >=10.00 MV E/e' (Lateral) 3.12 <=8.00 MV e' Average 5.61 MV E/e' (Average) 4.31 <=14.00 Tricuspid Valve Name Value Normal TV Regurgitation Doppler TR Peak Velocity 2.58 m/s <=2.80 TR Peak Gradient 27 mmHg Estimated PAP/RSVP RA Pressure 8 mmHg <=5 PA Systolic Pressure 35 mmHg <40 TV Diastolic Function TV E Peak Velocity 0.38 m/s TV A Peak Velocity 0.26 m/s TV E/A 1.46 0.80-2.00 TV Decel Time 148 ms >=120 TV Annular TDI TV Lateral Amarilis s' Velocity 8.8 cm/s 9.5-18.7 TV Lateral Amarilis e' Velocity 7.3 cm/s <7.8 TV E/e' 5.28 2.00-6.00 Aorta Name Value Normal Ascending Aorta Sinus of Valsalva Diameter 3.7 cm 3.1-3.7 Sinus of Valsalva Index 1.74 cm/m2 1.50-1.90 Venous Name Value Normal IVC/SVC IVC Diameter (Insp 2D) 0.9 cm IVC Diameter (Exp 2D) 1.5 cm <=2.1 IVC Diameter Percent Change (2D) 41 % >=50 Aortic Valve Name Value Normal AV Doppler AV Peak Velocity 1.66 m/s <2.00 AV Peak Gradient 11 mmHg AV V1/V2 Ratio 0.47 Ventricles Name Value Normal LV Dimensions 2D/MM IVS Diastolic Thickness (2D) 0.8 cm 0.6-1.0 LVID Diastole (2D) 4.7 cm 3.6-5.6 LVIW Diastolic Thickness (2D) 0.8 cm 0.6-1.0 LVID Systole (2D) 3.7 cm 2.5-4.0 LV Mass (2D Cubed) 118.90 g 88.00-224.00 LV Mass Index (2D Cubed) 0.01 g/cm2 0.00-0.01 Relative Wall Thickness (2D) 0.33 LV Fractional Shortening/Ejection Fraction 2D/MM LV Fractional Shortening (2D) 21 % 25-43 RV Dimensions 2D/MM RV Basal Diastolic Dimension 3.0 cm 2.5-4.1 TAPSE 1.8 cm >=1.7 Atria Name Value Normal LA Dimensions LA Area (4C) 30.6 cm2 LA Length (4C) 6.7 cm LA Area (2C) 35.8 cm2 LA Length (2C) 7.1 cm LA Volume (4C A-L) 119.37 ml LA Volume (2C A-L) 152.63 ml LA Volume (BP A-L) 140 ml 18-58 LA Volume Index (BP A-L) 66.36 ml/m2 <=34.00 RA Dimensions RA Area (4C) 19.5 cm2 <=18.0 Final Signed by:MD Escobar Nandini Signed (Electronic Signature):09/18/2023 7:45 a Vital Signs Most recent to oldest [Reference Range]: 1 2 3 Height 166 cm (09/15/23 6:36 PM) Patient Weight 93.8 kg (09/20/23 5:47 AM) 94.65 kg (09/19/23 6:47 AM) 93.75 kg (09/18/23 3:55 AM) Body Mass Index 32.75 kg/m2 (09/16/23 9:32 AM) 34.84 kg/m2 (09/15/23 6:36 PM) Temperature [36.5-37.9 DegC] 36.2 DegC *LOW* (09/20/23 9:15 AM) 35.9 DegC *LOW* (09/20/23 3:17 AM) 36.1 DegC *LOW* (09/19/23 10:22 PM) Heart Rate 97 bpm (09/20/23 9:15 AM) 92 bpm (09/20/23 3:17 AM) 82 bpm (09/19/23 10:22 PM) Respiratory Rate 16 br/min (09/20/23 3:17 AM) 18 br/min (09/19/23 10:22 PM) 20 br/min (09/19/23 9:20 PM) Blood Pressure 138/70mmHg (09/20/23 9:15 AM) 147/95mmHg (09/20/23 3:17 AM) 142/92mmHg (09/19/23 10:22 PM) Mean Blood Pressure 109 mmHg (09/20/23 3:17 AM) 110 mmHg (09/19/23 10:22 PM) 93 mmHg (09/19/23 9:20 PM) Cuff Pulse Pressure 52 mmHg (09/20/23 3:17 AM) 50 mmHg (09/19/23 10:22 PM) 71 mmHg (09/19/23 9:20 PM) BP Location # 1 Left Arm (09/20/23 3:17 AM) Left Arm (09/19/23 10:22 PM) Left Arm (09/19/23 9:20 PM) Social History Social History Type Response Smoking Status Never smoked cigaret lisandra Sex Male Endoscopy study * MD Whitten Hadie: VERIFY, PERFORM Event Display: Endoscopy Authored Date: Please click on link to see image. * MD Whitten Hadie: VERIFY, PERFORM Event Display: Endoscopy Authored Date: Please click on link to see image. Anes H&P * MD Gutierrez Mary E: MODIFY MD Gutierrez Mary E: MODIFY MD Hardik, Rikki W: MODIFY MD Arenas Anjan: SIGN, MODIFY MD Arenas Anjan: MODIFY, PERFORM MD Arenas Anjan: PERFORM, VERIFY MD Arenas Anjan: VERIFY Event Display: Anes H&P Authored Date: [id number] Patient: ALEJANDRA MURRAY Age: 83 years Sex: Male : 1940 Associated Diagnoses: None Author: MD Arenas Anjan Preoperative Information Pre-Operative Diagnosis: Painless jaundice . Anesthiesia Preop Info: No Scheduled Surgeries Found. , Procedure: ERCP . History of Present Illness 83-year-old, 97.6 kg, 166 cm with past medical history of CAD, HFpEF, atrial fibrillation status post pacemaker, status post TAVR, with history of postop left bundle branch block, and severe pulm HTN, Diabetes mellitus, hypertension, prostate cancer who presented as an outside transfer from [facility] on 09/15/2023 with the recent history of painless jaundice. He presents for ERCP. IV access: Left forearm 20-gauge, right forearm 20-gauge Infusions: None Antibiotics: None Currently on Entresto, metoprolol, pravastatin N.p.o.: ordered 09/16 at midnight Imaging: Pre/post op device check ordered Reason For Exam systolic heart failure Echo TransTHORacic TTE Complete [...] and the MR and TR is worse. Medical History Past medical history obtained and reviewed from the pre-procedure screening form as noted above. Any significant interval changes are noted below: Yes. Anesthesia History: Patient's history: Negative. Family's history: Negative. Functional Capacity: 4-6 METs = moderate. Health Status Allergies: Allergic Reactions (Selected) Severity Not Documented Ciprofloxacin- Dysequilbrium.. Medications: Medication List (Selected) Prescriptions Prescribed Albuterol (Eqv-ProAir HFA) 90 mcg/inh inhalation aerosol: 2 puff, inhaled, q6h, 8.5 g, 3 Refill(s) Eliquis 5 mg oral tablet: 1 tab, PO, bid, 60 tab, 11 Refill(s) Entresto 24 mg-26 mg oral tablet: 1 tab, PO, bid, 60 tab, 11 Refill(s) Flomax 0.4 mg oral capsule: 1 cap, PO, qAM, 90 cap, 3 Refill(s) Flonase 50 mcg/inh nasal spray: 1 spray, each nostril, Daily, 16 g, 3 Refill(s) One Touch Finepoint (25G) Lancets: See Instructions, test daily, Dx : E11.9, 1 box, 6 Refill(s) One Touch Ultra Test Strips 100 ct: See Instructions, test daily, Dx: E11.9, 100 each, 6 Refill(s) One Touch UltraMini Glucose Monitor: See Instructions, test daily, Dx : E11.9, 1 unit, 0 Refill(s) Tradjenta 5 mg oral tablet: See Instructions, TAKE 1 TABLET BY MOUTH EVERY DAY, 90 tab, 3 Refill(s) cyclobenzaprine 5 mg oral tablet: 1 tab, PO, qhs, PRN: NEEDED FOR SPASM, 30 tab, 0 Refill(s) dutasteride 0.5 mg oral capsule: 1 cap, PO, Daily, 30 cap, 3 Refill(s) furosemide 20 mg oral tablet: See Instructions, as needed for weight gain 2 lbs in 24 hours or 5 lbs in a week, 90 tab, 4 Refill(s) inhaler spacer: See Instructions, dispense 1, 1 each meclizine 25 mg oral tablet: See Instructions, 1 tab PO daily PRN dizziness, PRN: as needed for dizziness, 15 tab, 1 Refill(s) metFORMIN 500 mg oral tablet: See Instructions, TAKE 2 TABLETS BY MOUTH WITH NOON MEAL AND WITH EVENING MEAL, 360 tab, 1 Refill(s) metoprolol succinate 25 mg oral tablet, extended release: 1.5 tab, PO, Daily, 135 tab, 3 Refill(s) pravastatin 20 mg oral tablet: See Instructions, TAKE 1 TABLET BY MOUTH EVERYDAY AT BEDTIME, 90 tab, 3 Refill(s) traMADol 50 mg oral tablet: See Instructions, 1-2 tab PO q6h for pain not to exceed 400 mg/day, PRN: as needed for pain, 120 tab, 0 Refill(s) Documented Medications Documented Vitamin D3: multivitamin: 1 tab, PO, Daily. Histories Procedure History: Osteomyelitis of right foot (SNOMED CT 0093863813) performed by GUI Krause, Neptali Dunlap on 08/09/2022 at 81 Years. Comments: 08/09/2022 09:42 EDT - DUSTIN Scott, Luci Right Fourth Toe Osteomyelitis Single Chamber Pacemaker MICRA (SNOMED CT 82810915) on 05/04/2019 at 78 Years. Comments: 05/21/2019 15:18 RADHA - ARTIE Brice Kelsey Single Chamber Pacemaker MICRA Transcatheter aortic valve replacement (SNOMED CT 012128462019211) performed by MD Tee Steven M on 04/30/2019 at 78 Years. Ultrasound - renal (SNOMED CT 154657677) on 01/30/2019 at 78 Years. Comments: 01/30/2019 12:23 EDT - ARTIE Ramsay Natasha 1. no hydronephrosis 2. distended bladder demonstrating a postvoid residual of 634cc CTR - Carpal tunnel release (SNOMED CT 173185832). Arthroplasty of knee (SNOMED CT 46619360). Comments: 08/20/2013 09:20 EDT - Sue Cao with patient-matched implant. 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 Other Tobacco Use: Alcohol: Recreational Drugs: . Physical Examination VS/Measurements: Vital Signs 09/17/2023 11:53 EDT Temperature 36 DegC LOW Temperature Route Temporal Heart Rate 89 bpm Respiratory Rate 17 br/min Systolic Blood Pressure 121 mmHg Diastolic Blood Pressure 71 mmHg BP Location # 1 Left Arm BP Cuff Size Regular Mean Blood Pressure 81 mmHg Cuff Pulse Pressure 50 mmHg Oxygen Therapy Room Air SpO2 95 % . General: Alert and oriented, No acute distress. Airway: Mallampati classification: I (soft palate, fauces, uvula, pillars visible). Mouth: Within normal limits, Teeth ( Edentulous, removable upper and lower dentures ). Neck: Full range of motion. Respiratory: Lungs are clear to auscultation, Respirations are non-labored. Cardiovascular: Normal rate. Vascular Access: Peripheral. Anesthesiologist Assessment and Plan Problems: No previous anesthetic complications, No a/w concerns. ASA Classification: Class III. Anesthetic Plan: Anesthetic technique discussed: General anesthesia. Induction discussed: Intravenously. Airway plan discussed: Laryngeal mask airway, Oral endotracheal tube, Nasal Cannula. Risks discussed: Nausea-vomiting, Headache, Sore throat, Dental injury, Eye injury, Allergic reaction, Serious complications, Nerve damage, Aspiration. Informed consent: Signed by patient. History, Physical Exam, Assessment and Plan Completed: 09/17/2023 15:16:00, DO Dukes Michael. Adequately fasting Electronic Signature on File Electronically Reviewed/Signed by: Yannick Arenas MD Author Signature Dt/Tm:09/19/2023 07:43 PM Department of Anesthesia AT [place] DO [place] Megan H: MODIFY MD Rupal, Rudy Pang: MODIFY, PERFORM MD Rupal, Rudy Pang: PERFORM, MODIFY MD Rupal, Rudy Pang: MODIFY Event Display: H&P Authored Date: [id number] Name:ALEJANDRA MURRAY Patient Number:[id number] :1940 Date of Service:09/15/2023 History of Present Illness Adrienne de la cruz83 YearsoldMalewitha medical history significant forCAD,HFpEF,A-fibs/ppacemaker,s/pTAVR, postopLBBB, T2DM,HTN, prostate cancer(undergoinghormonal therapy)[facility] GI was consultedwith plans for ERCP. He states that he had not noticed any change and was in the usual state of health until Saturday when he had gone to his alejo and subsequently his chiropractor who both mentioned yellowing of his skin tone. Upon further reflection he states that he may have been having some generalized itching, vague abdominal pain, fatigue over the duration of a couple of weeks. He also reports some darker colored urine and pale-colored stools. At the time of admission patient is hemodynamically stable. - vitals:Mild BP elevation 153/62. HR, RR,temperaturewithin normallimits. - significant labs:T. bili 11.7 at outside facility. D bili 7. Alk phos >200.ALT/MCN455/124 - diagnostic studies:CT abdomenshowed normal gallbladder with no CBD dilation. MRCPshowed cholelithiasiswithout cholecystitis. Proximal ductal narrowingat the level of ampulla. 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 Independent at baseline - Ambulation: Ambulates independently. Periodically uses a cane. - Home oxygen requirements: None - Alcohol: None - Smoking: None - Recreational: None Review of Systems Constitutional: Denies fevers, chills, night sweats, weight changes Eyes: Denies vision changes Ears, Nose, Mouth & Throat: Denies sore throat, cough Cardiovascular: Denies chest pain, palpitations Respiratory: Denies shortness of breath, wheezing Gastrointestinal: Denies abdominal pain, nausea, vomiting, diarrhea, constipation Genitourinary: Denies dysuria, hematuria, urinary frequency, urinary hesitancy Musculoskeletal: Denies myalgias, arthralgias Integumentary: Denies rashes Neurological: Denies numbness, tingling, dizziness Psychiatric: Denies mood problems Physical Exam Vitals & Measurements T:36.6C HR:95(Monitored) RR:18 BP:153/92 SpO2:97% Oxygen Therapy:Room Air WT:97.60kg(Dosing) General:Jaundicedappearing. Well-developed, well-nourished patient, in no acute distress, pleasant and normal affect. Eyes:Scleral icterus present. No scleral injection or discharge. Neck:supple without lymphadenopathy or thyromegaly. Lungs: Clear to auscultation bilaterally with good effort. Cardiac:Irregular rhythm with regular rate. No murmurs appreciated.2+ distal pulses in upper and lower extremities bilaterally. Abdomen: Normoactive bowel sounds. Soft, nontender, and mildlydistended. Skin: Grossly jaundiced. Callus on the left knee. Extremities: No pitting edema. Moves all extremities without effort. Psychiatric: Appropriate mood and affect. Assessment/Plan Afib Chronic heart failure with preserved ejection fraction (HFpEF) Painless jaundice Assessment: Adrienne de la cruz83 YearsoldMalewithmedical history significant forCAD,HFpEF,A-fibs/ppacemaker,s/pTAVR, postopLBBB, T2DM,HTN, prostate cancer(undergoinghormonal therapy)[facility] GI has been consulted forevaluationfor potential ERCP. Plan: #Painless Jaundice -Workup from [facility]: BILI = 11 -> 11.7; DBili = 7 ALK = 200s AST/ALT = 234/124 CT Abdomen: gallbladder normal, no CBD dilation MRCP: cholelithiasis, no cholecystitis, proximal ductal narrowing at the level of the ampulla -GI consulted for evaluation of patient and need for ERCP -NPO at midnight -qAM CBC, CMP, PTT -scheduledPM labs Chronic Conditions: A-fib, TAVR, hypertension: Eliquis 5 mg twice daily, metoprolol 37.5 mg daily, Entresto 24-26 mg twice daily, furosemide 20 mg flex dosing T2DM: On metformin 500 mg daily, linagliptin 5 mg daily -->holding. Start ultra low-dose sliding scale inpatient BPH/prostate cancer: Tamsulosin 0.4 mg daily, dutasteride 0.5 mg daily -->use formulary finasteride Chronic back pain: Tramadol 100 mg 3 times daily as needed, Cyclobenzaprine 5 mg nightly BMI:37 Diet: Adult carb control; NPO at midnight DVT ppx: Eliquis 5mg daily. Holding at midnight for potential procedure Code Status: FULL CODE Primary Care Physician:MD Ila, Jin Bailey Contact: Lisa () [phone] SHERRY: 09/18 Barriers to discharge: ERCP and any further work up/treatment for jaundice Rudy Goldsmith MD Family & Community Medicine PGY-1 This case wasdiscussedwith attending,Dr. Levi [place] This note was completed in part, utilizing [employer] Voice Recognition Software. Grammatical errors, random word substitutions, spelling mistakes and incomplete sentences are an occasional consequence of this system due to software limitations, ambient noise, and hardware issues. If you have any concerns regarding the context or information contained within the body of this dictation, please contact the provider for clarification. Attestation Discussed with the resident and agree with the resident's findings and plan as documented above. 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 Exercise [...] Recorded Comments : 2019-02-04: Historical information-source unspecified Electronic Signature on File Electronically Reviewed/Signed by: Rudy Goldsmith MD Author Signature Dt/Tm:09/15/2023 07:05PM Resident Department of Family Medicine Electronically Reviewed/Signed by: DO Thelma Hurd Signature Dt/Tm: 09/15/2023 10:26 PM Department of Family Medicine MKT Gastroenterology Consult note * MD Walt, Jimenez: MODIFY MD Walt, Jimenez: MODIFY Event Display: Gastroenterology Consult Authored Date: [id number] GASTROENTEROLOGY INPATIENT CONSULTATION REPORT Name: ALEJANDRA MURRAY Patient Number: [id number] : 1940 Date of Admission: 09/15/2023 Date of Service: 09/16/2023 REQUESTING PHYSICIAN'S NAME: Levi [place] DO, Megan H REASON FOR CONSULTATION: ASSESSMENT: Alejandra Murray is an 83M with history of CAD, HFrEF, AFib s/p pacemaker (on Eliquis, last dose on 09/14 PM), aortic stenosis (s/p TAVR in 2019), DM, HTN and prostate CA, who was transferred from [facility] for evaluation of painless jaundice, with evidence of distal tapering of the CBD, with concern for a possible underlying pancreaticobiliary malignancy. RECOMMENDATIONS: 1 ) Please hold home Eliquis (last dose 09/14 PM) -- will allow 48-72 hour washout prior to endoscopic intervention. 2 ) Tentative plan for EUS +/- ERCP on 09/17. Please keep patient NPO after MN on 09/16. 3 ) Please obtain a TTE given findings of hypokinesis, elevated PASP and severe MR/TR on last echocardiogram in 03/2023 to aid with risk stratification prior to endoscopy. Follow Up Plan: GI will continue to follow. HPI: Alejandra Murray is an 83M with history of CAD, HFrEF, AFib s/p pacemaker (on Eliquis), aortic stenosis (s/p TAVR in 2019), DM, HTN and prostate CA, who was transferred from [facility] for evaluation of painless jaundice. The patient reports being in his normal state of health, until 1 week ago, when he was told that his skin appears yellow. He also notes that he started having some pruritus over that time period . Healso notes that his urine has become darker over the past 1-2 weeks. Given his symptoms, he presented to [facility] for evaluation. At the OSH, the patient was hemodynamically stable. His labs were notable for Tbili 11.7, ALP >200, AST 124 and ALT 230. MRCP showed cholelithiasis and tapering of the distal CBD near the ampulla.He was transferred to [facility] for GI evaluation. At [facility], the patient was hemodynamically stable. His labs were notable for AST 111, ALT 184, Tbili 12.2 and ALP 342. GI were consulted for further management. Of note, the patient's last TTE done in 03/2023 showed EF 45%, severe hypokinesis of the anteroseptal and inferoseptal michael and apex, severeMR/TR and PASP 61. PAST MEDICAL HISTORY: Problems: (atherosclerosis) Venous insufficiency of right leg Afib Type 2 diabetes mellitus with diabetic neuropathy, unspecified Prostate cancer Diastolic CHF Pacemaker S/P TAVR (transcatheter aortic valve replacement) Incomplete bladder emptying Hypertension Male urinary stress incontinence Vitamin D deficiency Weight disorder Persistent proteinuria Osteoarthritis of knee Hospital Day: 1 Surgical Hospital Day/Procedure: No procedures found MEDICATIONS: Active Inpt Meds: finasteride 5 mg PO Daily fluticasone nasal (Flonase 50 mcg/inh nasal spray) 50 mcg each nostril Daily insulin lispro (HumaLOG Sliding Scale Moderate) subQ ac and hs metoprolol (metoprolol succinate (ER)) 37.5 mg PO Daily multivitamin 1 tab PO Daily pravastatin 20 mg PO Daily sacubitril-valsartan (Entresto 24 mg-26 mg oral tablet) 1 tab PO bid tamsulosin (Flomax) 0.4 mg PO qAM Active PRN Meds: cyclobenzaprine 5 mg PO qhs furosemide 20 mg PO Daily traMADol 100 mg PO q6h Active IV Meds: None Allergies and Sensitivities: ciprofloxacin(Dysequilbrium) FAMILY HISTORY: No pertinent family history. SOCIAL HISTORY: No pertinent social history. REVIEW OF SYSTEMS: Review of systems negative, except for above. VITAL SIGNS AND EXAM: Vitals Temp Pulse BP RR SpO2 FIO2 Date Wt(kg) Wt(lb) 09/15 11:39 36.0 100 125/74 -- --- 09/15 90.2 199 09/15 10:25 ---- 96 ----- -- --- 09/14 96.0 211 09/15 04:53 36.3 96 133/76 18 97 RA 09/14 97.6 215 09/14 21:17 36.2 100 154/84 18 97 RA 09/14 97.6 215 09/14 16:54 36.6 95 153/92 18 97 RA 24 Hr Tmax: 36.3 at 09/15 04:53 36 Hr Tmax: 36.6 at 09/14 16:54 Vital Signs are the last 5 in the past 48 hours. Weights display the last 5 within 7 days. Initial Wt: 09/14 kg 215 lb Recorded Input Output Balance 09/15 7a-3p 0 700 -700 3p-11p 0 200 -200 11p-7a 0 0 0 24 Total 0 900 -900 09/14 7a-3p 0 0 0 3p-11p 200 1100 -900 11p-7a 0 925 -925 24 Total 200 2024 -5 Refer to the I-VIEW - I and O tab for details Physical Exam: General: NAD HEENT: PERRL Cardiac: RRR Lungs: CTAB Abdomen: Soft, nontender, nondistended. No guarding or rebound. Extremities: No significant LE edema. Neurological: AAOx3. No focal neurological deficits. Skin: Jaundice. Psychiatric: Appropriate mood and affect. LABS: Most Recent Lab Results over the last 24 Hours: CBC: on 09/16/2023 05:04 CMP: on 09/16/2023 05:04 12.1 137 105 18 7.3 230 222 34.9 4.0 19 0.79 Abs Neut = 5.3 Ca = 9.7 eGFR CKD-EPI: 88 LFT Results: Alk Phos = 342 on 09/16/2023 05:04 ALT = 184 on 09/16/2023 05:04 AST = 111 on 09/16/2023 05:04 Total Bili = 12.2 on 09/16/2023 05:04 Abumin = 3.5 on 09/16/2023 05:04 Total Protein = 6.4 on 09/16/2023 05:04 Most Recent 24hr Labs as of 09/15 1639 Blood Glucose 229 H Blood Glucose R See Flowsheet 09/15 1627 Gluc Meter 229 H 09/15 0557 Estimated CrCl 76.59 09/15 0504 MCH 31.7 MCHC 34.7 MCV 91.4 RBC 3.82 L MPV 11.4 Immature Gran% 0.5 Neut% 72.8 Lymph% 16.3 [place]% 8.6 Baso% 0.7 Eos% 1.1 Immat Gran, Abs 0.04 Lymph, Abs 1.20 [place], Abs 0.63 Baso, Abs 0.05 Eos, Abs 0.08 Type of Diff: See Flowsheet RDW 17.6 H Anion Gap 13 eGFR CKD-EPI 88 INR 1.2 H PT 15.3 H Alk Phos 342 H ALT 184 H AST 111 H T Bili 12.2 H Alb 3.5 Prot 6.4 09/14 2114 NH3 35 09/14 2100 HbA1c 8.3 H Estimated [place] 192 The patient was discussed with the attending of record,Dr. Godoy, who is in agreement with the above assessment and plan. Nikolay Eckert, PGY 4 Gastroenterology and Hepatology Fellow ATTENDING I have seen and examined patient and directed all aspects of the care. I have reviewed all documentation, as well as follow up testing/plans that was ordered/recommended. I agree with documentation by my fellow/trainee. In addition , I confirmed all aguirre portions of the clinical examination, reviewed available work up and discussed plan of care in detail with patient/next of kin/POA/primary team. Follow up plans were also outlined in simple terms Electronic Signature on File Electronically Reviewed/Signed by: Nikolay Eckert MD Author Signature Dt/Tm:09/16/2023 05:58 PM Resident Division of Gastroenterology Electronically Reviewed/Signed by: Jimenez Godoy MD,FACP,FRCP,AGAF Cosigner Signature Dt/Tm: 09/17/2023 08:20 AM sap bods developer Division of Gastroenterology & Hepatology [facility] AA .D/C Summary * MD Shubham, All Razo: MODIFY MD Jalloh Christopher R: MODIFY, MODIFY MD Shanti, Kellen Anguiano: MODIFY, MODIFY MD Shanti, Kellen Anguiano: MODIFY, MODIFY MD Shanti, Kellen Anguiano: MODIFY, MODIFY MD Shanti, Kellen Anguiano: MODIFY Event Display: .D/C Summary Authored Date: [id number] [facility] For medical concerns, call: . Address: [address] [place] [address] [id number] (HOME) [phone] (ALTERNATE) :1940 . Date of Admission:09/15/2023 Date of Discharge:09/20/2023 Physician:MD Jalloh Christopher R Service:[facility] Medicine Discharge Disposition:home Primary Care Provider/Phone: MD ILA, JIN Bailey (BUSINESS) [phone] (FAX BUSINESS) Principal Diagnosis: Painless jaundice Other Diagnoses: Pancreatic mass Pancreatic cyst Transaminitis Hyperbilirubinemia Afib Chronic heart failure with preserved ejection fraction (HFpEF) S/P ERCP Acute bacterial simple cystitis BPH associated with nocturia Major Tests and Procedures: (09/18/2023 09:01 EDT Echo TransTHORacic TTE Limited w/ Cont) Summary 1. Failed 2D images were enhanced [...] diastolic function have improved; LVEF is similar. [1] ERCP - 09/19/2023 - multifocal pancreatic head cyst with [id number] pancreatic head mass with pancreatic duct dilation and atrophy status post biopsy - common bile duct sludge Brief History of Present Illness: Adrienne de la cruz83 YearsoldMalewitha medical history significant forCAD,HFpEF,A-fibs/ppacemaker,s/pTAVR, postopLBBB, T2DM,HTN, prostate cancer(undergoinghormonal therapy)[facility] GI was consultedwith plans for ERCP. He states that he had not noticed any change and was in the usual state of health until Saturday when he had gone to his alejo and subsequently his chiropractor who both mentioned yellowing of his skin tone. Upon further reflection he states that he may have been having some generalized itching, vague abdominal pain, fatigue over the duration of a couple of weeks. He also reports some darker colored urine and pale-colored stools. [2] Hospital Course: Mr. Murray was transferred to [facility] for an ERCP to workup his painless jaundice. GI was consulted who coordinated with Anesthesiology to perform an inpatient ERCP. Due to patient's cardiac history, he was deemed high risk for the endoscopy suite. His procedure was delayed until he could receive a TTE. The TTE confirmed that he was high-risk and his procedure was delayed until an OR was available on09/18. While awaiting the ERCP, his LFTs, bilirubin, jaundice, and pruritus continued to worsen. Pruriticstreated with PRN Zyrtec. Due to prolonged NPO status, insulin was adjusted accordingly forhis T2DM and he received IVF when indicated. ERCP [id number] x 17 mm mass in thepancreatic head requiring biopsy. ERCPalso revealeddistal CBD stricture that needed sphincterotomy/plastic biliary stent placement. Patient tolerated procedure well. Patient and are aware of diagnosis of pancreatic mass and pending biopsy. Recommended to have follow up ERCP in 2 months. On the morning of the procedure, pt reported dysuria.Urine culture grew preliminary gram negativerods and pending at discharge. He has a history of pseudomonas UTIs, but Cipro is listed as an allergy. Discharged on Macrobid. PCP Recommendations: - follow up pending Urine Culture (growing gram negative rods). He may need a change in his antibiotics if he's growing Pseudomonas. - consider Prevnar immunization and SGLT-2 inhibitor for his HFrEF - Ensure repeat ERCP done in 2 months - follow up biopsy pathology from pancreas - may take Zyrtec PRN for itching Exam on Discharge: Vitals & Measurements: T:36.2C TMIN:35.9C TMAX:36.4C HR:97(Monitored) RR:16 BP:138/70 SpO2:97% Oxygen Flow:1(L/Min) Oxygen Therapy:Room Air WT:93.8kg BMI:32.75 kg/m2 General: Well-developed, well-nourished patient, in no acute distress, intact memory, A&Ox4 Eyes: No discharge. Icteric sclera ENT: Moist mucous membranes. Cardiac: well perfused Resp: nonlabored breathing Extremities: trace pitting edema in lowerextremity b/l Abdomen: Soft, nontender, and nondistended. Neurologic: Grossly intact cranial nerves Skin: diffuse jaundice NYHA Heart Failure Class: NYHA Heart Failure Class III - Moderate HF; symptomatic with minimal exertion Medication indication for use are noted under the principal diagnosis Discharge Medications: 1.Diabetes supplies (One Touch UltraMini Glucose Monitor) See Instructions . test daily, Dx : E11.9. 2.Diabetes supplies (One Touch Finepoint (25G) Lancets) See Instructions . test daily, Dx : E11.9. 3.Diabetes supplies (One Touch Ultra Test Strips 100 ct) See Instructions . test daily, Dx: E11.9. 4.Dutasteride (dutasteride 0.5 mg oral capsule) 0.5 mg (1 cap) by mouth once daily. 5.Inhalation accessory (inhaler spacer) See Instructions . dispense 1. For: S/P TAVR (transcatheter aortic valve replacement). Pacemaker. Aortic stenosis. Hypertension. Diastolic CHF. 6.Tamsulosin (Flomax 0.4 mg oral capsule) 0.4 mg (1 cap) by mouth once a day (in the morning). For:Recurrent UTI. BPH associated with nocturia. 7.Albuterol (Albuterol (Eqv-ProAir HFA) 90 mcg/inh inhalation aerosol) 2 puff Inhalation every 6 hours. 8.Cholecalciferol (Vitamin D3) . 9.Multivitamin 1 tab by mouth once daily. 10.Furosemide (furosemide 20 mg oral tablet) See Instructions . as needed for weight gain 2 lbs in 24 hours or 5 lbs in a week. 11.Pravastatin (pravastatin 20 mg oral tablet) See Instructions . TAKE 1 TABLET BY MOUTH EVERYDAY AT BEDTIME. 12.Meclizine (meclizine 25 mg oral tablet) See Instructions as needed for dizziness. 1 tab PO daily PRN dizziness. 13.Apixaban (Eliquis 5 mg oral tablet) 1 tab by mouth 2 times daily. 14.Fluticasone nasal (Flonase 50 mcg/inh nasal spray) 1 spray in each nostril once daily. 15.Sacubitril-valsartan (Entresto 24 mg-26 mg oral tablet) 1 tab by mouth 2 times daily. 16.MetFORMIN (metFORMIN 500 mg oral tablet) See Instructions . TAKE 2 TABLETS BY MOUTH WITH NOON MEAL AND WITH EVENING MEAL. 17.Metoprolol (metoprolol succinate 25 mg oral tablet, extended release) 37.5 mg (1.5 tab) by mouthonce daily. 18.Cyclobenzaprine (cyclobenzaprine 5 mg oral tablet) 1 tab by mouth at bedtime, NEEDED FOR SPASM. 19.TraMADol (traMADol 50 mg oral tablet) See Instructions as needed for pain. 1-2 tab PO q6h for painnot to exceed 400 mg/day. 20.Linagliptin (Tradjenta 5 mg oral tablet) See Instructions . TAKE 1 TABLET BY MOUTH EVERY DAY. 21.Cetirizine (ZyrTEC 10 mg oral tablet) 10 mg (1 tab) by mouth 2 times daily, as needed for itching. 22.Nitrofurantoin (Macrobid 100 mg oral capsule) 100 mg (1 cap) by mouth 2 times daily. with food.. For: Acute bacterial simple cystitis. Allergies and Sensitivities: ciprofloxacinDysequilbrium Tests Pending: None Follow-Up Tests and Studies After Discharge: - follow up pending Urine Culture (growing gram negative rods). He may need a change in his antibiotics if he's growing Pseudomonas. - Ensure repeat ERCP done in 2 months - follow up biopsy pathology from pancreas Scheduled Appointments: Date/Time:Provider/Resource: Aug 07:45 MD Vito, Jin Bailey Location/Instructions:[facility], [address], [address], [place] [address] Date/Time:Provider/Resource: Sep 09:45 DO Arias Jason D [facility], [address], [address], [place] [address] . Please arrive 15 min earlier than your appointment time for Check In Process. Date/Time:Provider/Resource: Oct 08:45 [facility] BP Device SC07 Location/Instructions:[facility] [address], [address], [address], [place] [address] . Please arrive 15 min earlier than your appointment time for Check In Process. Date/Time:Provider/Resource: Nov 07:45 MD Vito, Jin Bailey Location/Instructions:[facility], [address], [address], [place] [address] Discharge Services: No Post-Acute Placement(s) Listed No Post-Acute Service(s) Listed Care Instructions: You were admitted to for ERCP (procedure to workup your jaundice). You also developed a UTI. The urine culture is still pending, but is growing bacteria. You were discharged gertrudis antibiotic that may need ot be changed if your symptoms do not improve in 1-2 days or based on the results of the urine culture. Your primary care doctor should follow up on this urine culture. A discharge summary will be sent to your primary care physician to ensure continuity of care. Please bring this discharge summary with you to your next office appointment so that your provider canreview it at that time. Follow-up appointments: 1. Keep all of your follow-up appointments as already scheduled. If you cannot make an appointment,tell your provider.You have an appointment with your primary care doctor within the next week. Medications: - Your medication list has been reviewed andupdatedat discharge to ensureit's accurateand continuity of care. - You are provided with a list of all your current medications. Please look closely and remember any changes. - Please take all of your medications exactly as prescribed. - Tell your primary care provider if you cannot afford your medications. - Call your primary care provider if you are having any side effects or any other problems. - Call your primary care provider before taking any ozmd-wje-vcpxtzk medications or supplements, including herbals and vitamins, because some of these may interact with your current medications and/or make your symptoms worse. It was our pleasure to care for you during your hospitalization. Other Recommendations: You were offered a Hepatitis C screening test and you declined. Please follow up with your PCP. . Advance Directive:None I have seen/evaluated the patient. Ihave discussed thepatient's history, exam, and managementwith theresident.I reviewed (and edited if needed in underline) the resident's note and agreewith the pertinent findings and plan of care as documented, with any exceptions/clarifications as noted below. -I personally spent35 minutes in discharge planning. All Jalloh MD, MPH Senior Sustainability Consultant Family and Community Medicine [facility] [1]Echo TransTHORacic TTE Limited w/ Cont; MD Luz, Amada 09/18/2023 09:01 EDT [2]Admission H & P; MD Rupal, Rudy Bird 09/15/2023 17:27 EDT Electronic Signature on File CC: Jin Colon MD [address] [address] Electronically Reviewed/Signed by: Kellen Moser MD Author Signature Dt/Tm:09/20/2023 10:38 AM Resident Department of Family Medicine Electronically Reviewed/Signed by: Kellen Moser MD Cosigner Signature Dt/Tm: 09/20/2023 10:39 AM Resident Department of Family Medicine Electronically Reviewed/Signed by: MD Thelma Torres Signature Dt/Tm: 09/20/2023 03:30 PM Department of Family Medicine ABD Discharge instructions * MD Shanti, Kellen Anguiano: PERFORM Event Display: Patient Discharge Instructions Authored Date: [id number] ALEJANDRA MURRAY :1940 Visit Date:09/15/2023 Patient Discharge Instructions [facility] For medical concerns, call: . Date of Admission:09/15/2023 Date of Discharge:09/20/2023 Physician:MD Jalloh Christopher R Service:[facility] Medicine Discharge Disposition:home . Advance Directive:None Reason for Hospitalization Painless jaundice Your Diagnoses Painless jaundice Pancreatic mass Pancreatic cyst Transaminitis Hyperbilirubinemia Afib Chronic heart failure with preserved ejection fraction (HFpEF) S/P ERCP Acute bacterial simple cystitis BPH associated with nocturia My Health Patient Portal: [facility] [employer] makes it easy for you to manage your health information online. My [facility] [employer] is a free service that provides you instant, secure access to your medical information anytime, anywhere. Sign in or set up your account today at [email or web address] Thank you for allowing us to assist you with your healthcare needs. If you need additional community resources, [employer] can help at https://www.pa211.org. 211 can assist you in connecting with social programs based on your unique needs and locations. 211 is an anonymous search that can help you locate resources for: Food, Housing, Transportation, Goods, Education and Healthcare. Medications Patient is enrolled in Rx-to-Go Program New medications will be delivered from [facility] to patient's room at discharge: Mon-Sun from 9AM-5 PM. Medications MUST be PICKED UP at [facility] if patient is discharged Mon-Sun after 5 PM or anytime on holidays. Please note, the [facility] closes at 8 PM on weekdays and 5:30 PM on Saturdays, Sundays, and holidays. What How Much When Why Instructions Next Dose New cetirizine (ZyrTEC 10 mg oral tablet) 1 tab(s) by mouth 2 times daily as needed for itching New nitrofurantoin (Macrobid 100 mg oral capsule) 1 cap by mouth 2 times daily Acute bacterial simple cystitis (UTI) Duration: 7 Days with food. Pickup at [facility] [place] Please note you have a history of an adverse reaction to the antibiotic we wanted to give you, so this is a different antibiotic from what we talked about this morning. It is 7 days long. as soon as possible Unchanged albuterol (Albuterol (Eqv-ProAir HFA) 90 mcg/ inh inhalation aerosol) 2 puff(s) Inhalation Every 6 hours Unchanged apixaban (Eliquis 5 mg oral tablet) 1 tab(s) by mouth 2 times daily Unchanged cholecalciferol (Vitamin D3) Unchanged cyclobenzaprine (cyclobenzaprine 5 mg oral tablet) 1 tab(s) by mouth At bedtime as needed for NEEDED FOR SPASM Unchanged diabetes supplies (One Touch Ultra Test Strips 100 ct) See instructions test daily, Dx: E11.9 Unchanged diabetic supplies (One Touch Finepoint (25G) Lancets) See instructions test daily, Dx : E11.9 Unchanged diabetic supplies (One Touch UltraMini Glucose Monitor) See instructions test daily, Dx : E11.9 Unchanged dutasteride (dutasteride 0.5 mg oral capsule) 1 cap by mouth Once daily Unchanged fluticasone nasal (Flonase 50 mcg/ inh nasal spray) 1 spray(s) in each nostril Once daily Unchanged furosemide (furosemide 20 mg oral tablet) See instructions as needed for weight gain 2 lbs in 24 hours or 5 lbs in a week Unchanged inhalation accessory (inhaler spacer) See instructions S/P TAVR (transcatheter aortic valve replacement) Pacemaker Aortic stenosis Hypertension Diastolic CHF dispense 1 Unchanged linagliptin (Tradjenta 5 mg oral tablet) See instructions TAKE 1 TABLET BY MOUTH EVERY DAY Unchanged meclizine (meclizine 25 mg oral tablet) See instructions 1 tab PO daily PRN dizziness, As needed for as needed for dizziness Unchanged metFORMIN (metFORMIN 500 mg oral tablet) See instructions TAKE 2 TABLETS BY MOUTH WITH NOON MEAL AND WITH EVENING MEAL Unchanged metoprolol (metoprolol succinate 25 mg oral tablet, extended release) 1.5 tab(s) by mouth Once daily Unchanged multivitamin 1 tab(s) by mouth Once daily Unchanged pravastatin (pravastatin 20 mg oral tablet) See instructions TAKE 1 TABLET BY MOUTH EVERYDAY AT BEDTIME Unchanged sacubitril-valsartan (Entresto 24 mg-26 mg oral tablet) 1 tab(s) by mouth 2 times daily Unchanged tamSULOsin (Flomax 0.4 mg oral capsule) 1 cap by mouth Once a day (in the morning) Recurrent UTI BPH associated with nocturia Unchanged traMADol (traMADol 50 mg oral tablet) See instructions 1-2 tab PO q6h for pain not to exceed 400 mg/ day, As needed for as needed for pain Pharmacy Information [facility] [place]: [address] [place] [address] VIRY Garza [phone] Allergies ciprofloxacinDysequilbrium What to do next Instructions From Your Doctor You were admitted to for ERCP (procedure to workup your jaundice). You also developed a UTI. The urine culture is still pending, but is growing bacteria. You were discharged gertrudis antibiotic that may need ot be changed if your symptoms do not improve in 1-2 days or based on the results of the urine culture. Your primary care doctor should follow up on this urine culture. A discharge summary will be sent to your primary care physician to ensure continuity of care. Please bring this discharge summary with you to your next office appointment so that your provider canreview it at that time. Follow-up appointments: 1. Keep all of your follow-up appointments as already scheduled. If you cannot make an appointment,tell your provider.You have an appointment with your primary care doctor within the next week. Medications: - Your medication list has been reviewed andupdatedat discharge to ensureit's accurateand continuity of care. - You are provided with a list of all your current medications. Please look closely and remember any changes. - Please take all of your medications exactly as prescribed. - Tell your primary care provider if you cannot afford your medications. - Call your primary care provider if you are having any side effects or any other problems. - Call your primary care provider before taking any evrq-aao-injjsgf medications or supplements, including herbals and vitamins, because some of these may interact with your current medications and/or make your symptoms worse. It was our pleasure to care for you during your hospitalization. Other Recommendations: You were offered a Hepatitis C screening test and you declined. Please follow up with your PCP. If you notice the following symptoms Please call your primary care provider for symptoms including, but not limited to: fevers (temperatures >100.4 degrees F or 38.1 degrees C), chills, intractable nausea or vomiting, diarrhea, severe constipation, abdominal pain, rash, shortness of breath, bleeding, pain, or if you experience any worsening of the symptoms that brought you to the hospital. ForEMERGENCYandVERY SERIOUShealth-related issues, such as chest pain, shortness of breath, or sudden onset of the symptoms that brought you to the hospital, you may need to [id number] [facility]. Contact the [facility] Careline at . If unable to contact your physician and you feel it is an emergency, go to the nearest Emergency Room or call 911 Diet Instructions resume regular diet from home. We recommend a low sugar, low salt, low fatdiet for your diabetes,heart, and pancreas. Please see the attached handout about ERCP and monitoring for pancreatitis. Activity Instructions resume regular activity as tolerated Follow-Up Appointments Scheduled Follow-Up Appointments Date/Time:Provider/Resource: Aug 07:45 MD Vito, Jin Bailey Location/Instructions:[facility], [address], [address], [place] [address] Date/Time:Provider/Resource: Sep 09:45 DO Arias Jason D Location/Instructions:[facility] [address] [facility] [address], [place] [address] . Please arrive 15 min earlier than your appointment time for Check In Process. Date/Time:Provider/Resource: Oct 08:45 [facility] BP Device SC07 Location/Instructions:[facility] [address], [facility] [address], [place] [address] . Please arrive 15 min earlier than your appointment time for Check In Process. Date/Time:Provider/Resource: Nov 07:45 MD Padron Ravishankar E Location/Instructions:[facility], [address], [address], [place] [address] The Following Services Have Been Arranged for You No Post-Acute Placement(s) Listed No Post-Acute Service(s) Listed Tests Pending None Procedures Performed (09/18/2023 09:01 EDT Echo TransTHORacic TTE Limited w/ Cont) Summary 1. Failed 2D images were enhanced [...] diastolic function have improved; LVEF is similar. [1] ERCP and stent placed - 09/19/23, pancreatic mass Special Instructions Heart Failure Instructions Heart Failure-You were hospitalized for heart failure. The last ejection fraction of your heart was45%%. Your heart failure care tools include the following: DIET Follow a 2300 mg sodium diet ACTIVITY Balance activity with rest periods MEDICATIONS Take all medications that you see on your discharge medication sheet WEIGHT MANAGEMENT Weigh yourself every morning, at the same time, and write it down. Bring a record of your weights to all doctor visits Your weight at discharge was 208 lb. Compare your weights daily for rapid gain and follow the Zones Green Zone: ALL CLEAR. This zone is your goal Weight is stable No need to raise head to breathe while sleeping Not short of breath while sleeping Physical activity level is normal No new swelling of legs, feet, ankles and abdomen No new or worsening shortness of breath Yellow Zone: CAUTION - This zone is your WARNING! Use your Action Plan Weight gain of 2 to 3 lbs over two consecutive days or 4 to 5 lbs in one week Need to raise head to sleep due to shortness of breath Waking up from sleep with sudden or unusual shortness of breath Physical activity is limited due to shortness of breath or fatigue Increased swelling of legs, feet, ankles and abdomen New onset shortness of breath or hacking cough YELLOW ZONE ACTION PLAN Call your hog trader Red Zone: DANGER - Act now! Short of breath while sitting still Chest pain Confusion/cannot think clearly WHAT TO DO? Call 911 or go to your local emergency room Common Emergency Awareness Tips Call 911 immediately if: experiencing any of the warning signs and symptoms of stroke: B.E. F.A.S.T. Balance: is there trouble with walking or coordination Eyes: is there double vision or visual loss Face: Smile, do both sides of face move equally Arm: Raise arms, do both arms move equally Speech: Is speech slurred or inappropriate Time: Time is critical, call 911 immediately Heart Attack Signs Chest discomfort: Most heart attacks involve discomfort in the center of the chest and lasts more than a few minutes, or goes away and comes back. It can feel like uncomfortable pressure, squeezing, fullness or pain. Discomfort in upper body: Symptoms can include pain or discomfort in one or both arms, back, neck, jaw or stomach. Shortness of breath: With or without discomfort. Other signs: Breaking out in a cold sweat, nausea, or lightheaded. Remember, MINUTES DO MATTER. If you experience any of these heart attack warning signs, call 11-30- to get immediate medical attention! Education Materials Endoscopic Retrograde Cholangiopancreatogram, Care After The following information offers guidance on how to care for yourself after your procedure. Your health care provider may also give you more specific instructions. If you have problems or questions, contact your health care provider. What can I expect after the procedure? After the procedure, it is common to have: Soreness in your throat. Nausea. Bloating. Follow these instructions at home: Medicines Take cmpi-cxn-ftyomyd and prescription medicines only as told by your health care provider. If you were prescribed an antibiotic medicine, take it as told by your health care provider. Do notstop using the antibiotic even if you start to feel better. General instructions If you were given a sedative during the procedure, it can affect you for several hours. Do not drive or operate machinery until your health care provider says that it is safe. Have a responsible adult care for you for the time you are told. Return to your normal activities as told by your health care provider. Ask your health care provider what activities are safe for you. Return to eating what you normally do as soon as you feel well enough or as told by your health care provider. Keep all follow-up visits. This is important. Contact a health care provider if: You have pain in your abdomen that does not get better with medicine. You develop signs of infection, such as chills or a fever. Get help right away if: You have difficulty swallowing. You have worsening pain in your throat, chest, or abdomen. You vomit bright red blood or a substance that looks like coffee grounds. You have bloody or black, tarry stools. You have a sudden increase in swelling (bloating) in your abdomen. These symptoms may be an emergency. Get help right away. Call 911. Do not wait to see if the symptoms will go away. Do not drive yourself to the hospital. Summary After the procedure, it is common to have some soreness in your throat or some bloating of your abdomen. If you were given a sedative during the procedure, it can affect you for several hours. Do not drive or operate machinery until your health care provider says that it is safe. Contact your health care provider if you have signs of infection, such as chills or a fever, or if you have pain that does not improve with medicine. Get help right away if you have trouble swallowing, worsening pain, bloody or black vomit, bloody or black stools, or increased swelling in your abdomen. This information is not intended to replace advice given to you by your health care provider. Make sure you discuss any questions you have with your health care provider. Document Revised: 09/25/2021 Document Reviewed: 09/25/2021 Attributor Patient Education 2022 [employer]. [1]Echo TransTHORacic TTE Limited w/ Cont; MD Escobar Nandini 09/18/2023 09:01 EDT Patient Care team information Care Team Personnel Name: Virginia Dougherty Christine A Position: Pharmacist Schedule II Member Role: Pharmacy - Lifetime Name: SHREYA Green Lynn Position: Physician Econometrician Exempt - Vasc Surg Member Role: Lifetime Relationship Address: Address: [address] [place] [address] [address] [place] [address] [place] Name: MD Escobar Nandini Position: Physician - Card Heart Failure Member Role: Lifetime Relationship Address: Address: [address] [place] [address] [place] Name: MD Ila, Jin Bailey Position: Physician Member Role: Primary Care Provider Address: Address: [address] [place] [address] [place] Name: Virginia Maddox Kyle Position: Pharmacist Member Role: Pharmacy - Lifetime Address: Address: [address] [place] [id number] [place] Care Team Related Persons Name: LISA MURRAY Address: home [address] [place] [address] [phone] Name: NALINI MURRAY Name: JOSS MURRAY Name: JOSS MURRAY Address: home No Address Provided"
--- OUTSIDE RECORDS SUMMARY | 2023-10-31 03:31 | External Medical Summary ---
Author Name Unknown Address Unknown Organization K01:[facility] - [address] [place] [address] Laboratory Report Ordering Provider Test Date Status JAY MENDEZ 10/04/2023 12:00:55 Final Observation Date Value Abnormality Reference (Units ) Status Hep B surface Ag 10/04/2023 12:00:55 Negative Neg ative Final Performing Location [facility] [address] [place] [address]
--- OUTSIDE RECORDS SUMMARY | 2023-10-31 03:31 | External Medical Summary | Summary of Care ---
Author Name Unknown Organization [facility] Address [address] [place] [address] Phone [phone] Care Team Providers Care Communication Professor Name Role Phone Bailee Colon MD Primary Care Provi caroline Encounter Details Date Type Department Care Team (Late st Contact Info) Description 09/23/2023 Population Health External Data Unspecified Department Allergies No known active allergiesdocumented as of this encounter (statuses as of 09/24/2023) Medications Medication Sig Dispensed Refills Start Date [...] as of this encounter (statuses as of 09/24/2023) Active Problems Problem Noted Date Diagnosed Date Elevated prostate specific antigen (PSA) 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 Dermatitis 04/03/2006 documented as of this encounter (statuses as of 09/24/2023) Social History Tobacco Use Types Packs/Day Years Used Date Smoking Tobacco: Never Smokeless Tobacco: Never Utilities Answer Date Recorded Do you have trouble paying y our heating, water, or electric bill? (Adult - for ages 18 years and over) Not on file 09/17/2023 Is your family able to pay t he heat, water, or electric bill? (Household - for ages 0-17 years) Not on file 09/17/2023 Does your family have access to good internet? (Household - for ages 0-17 years) Not on file 09/17/2023 Social Connections Answer Date Recorded How often do you feel lonely or isolated from those around you? (Adult - for ages 18 years and over) Not on file 09/17/2023 Sex and Gender Information Value Date Recorded [...] 10/14/2023 8:15 AM EDT Office Visit Urology, [facility] [address] [facility] [place] [address] Berny Wakefield MD 27 [facility] [address] [place] [address] Health Maintenance [...] filedocumented as of this encounter Care Teams Communication Professor Relationship Specialty Start Date End Date Bailee Colon MD 6 [facility] [address] [place] [address] PCP - General Family Medicine 06/27/23 documented as of this encounter
--- OUTSIDE RECORDS SUMMARY | 2023-10-31 03:31 | External Medical Summary ---
Author Name Unknown Address Unknown Organization [id number]:[facility] [place] [address] [place] [address] Laboratory Report Ordering Provider Test Date Status VANESSADERICKANELCHRISTY 10/04/2023 12:00:55 Final Observation Date Value Abnormality Reference (Units ) Status Cancer Ag 19-9 10/04/2023 12:00:55 1617.0 Above high norm al <35.0 (U/mL) Final Performing Location [facility] - [address] [place] [address]
--- OUTSIDE RECORDS SUMMARY | 2023-10-31 03:31 | External Medical Summary | Summary of Care ---
Author Name Unknown Organization [facility] Address [address] [place] [address] Phone [phone] Care Team Providers Care Import/Export Administrator Name Role Phone Bailee Colon MD Primary Care Provi caroline Reason for Referral * Evaluate & Treat - Unlimited Visits (Within 10 days (routine)) - Authorized Specialty Diagnoses / Procedures Referred By Contac t Referred To Contact Hospice and Palliative Medicine / Palliative Medicine Diagnoses Pancreatic mass Pancreatic adenocarcinoma (HCC) Bailee Colon MD [address] [place] [address] [address] Referral ID Status Reason Start Date Expiration Date Visits Requested Visits Authorized [id number] Authorized Specialty Services Required 09/26/[phone] Question Answer Referral Priority Within 10 days (routine) Where should this appointment be scheduled? [facility] Reason for Referral: Cancer Palliative Medicine To Address: Other - Specify in Comments Referral Location Office Comments Pancreatic mass/adenocarcinoma Encounter Details Date Type Department Care Team (Late st Contact Info) Description 09/26/2023 Orders Only Access [facility], [place] [facility] [address] [place] [address] Ext *DO NOT REMOVE THIS DEPARTMENT* [place] [address] Request, External Referral Pancreatic mass*; Pancreatic adenocarcinoma (HCC) Allergies Active Allergy Reactions Criticality Noted Date Comments Ciprofloxacin 09/24/2023 documented as of this encounter (statuses as of 09/26/2023) Medications Medication Sig Dispensed Refills Start Date [...] as of this encounter (statuses as of 09/26/2023) Active Problems Problem Noted Date Diagnosed Date Elevated prostate specific antigen (PSA) 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 [place] [address] 10/14/2023 8:15 AM EDT Office Visit Urology, [facility] [address] [place] [address] Berny Wakefield MD 27 [facility] [place] [id number] Scheduled Referrals Name Type Priority Associated Diagnoses Orde r Schedule PALLIATIVE CARE REFERRAL OP Referral Within 10 days (routine) Pancreatic mass Pancreatic adenocarcinoma (HCC) Ordered: 09/26/2023 Health Maintenance Due Date Last Done Comments [...] of this encounter Visit Diagnoses Diagnosis Pancreatic mass- Primary Unspecified disease of pancreas Pancreatic adenocarcinoma (HCC) Malignant neoplasm of pancreas, part unspecified documented in this encounter Care Teams Import/Export Administrator Relationship Specialty Start Date End Date Bailee Colon MD 6 [facility] [place] [address] PCP - General Family Medicine 06/27/23 documented as of this encounter
--- OUTSIDE RECORDS SUMMARY | 2023-10-31 03:31 | External Medical Summary | Summary of Care ---
Author Name Unknown Organization [facility] Address [address] [place] [address] Phone [phone] Care Team Providers Care Grievance Coordinator Name Role Phone Bailee Colon MD Primary Care Provi caroline Reason for Referral * Evaluate & Treat - Unlimited Visits (Within 10 days (routine)) - Authorized Specialty Diagnoses / Procedures Referred By Contac t Referred To Contact Hematology/Oncology / Hematology Oncology Diagnoses Pancreatic mass Pancreatic adenocarcinoma (HCC) Bailee Colon MD [address] [place] [address] [address] Referral ID Status Reason Start Date Expiration Date Visits Requested Visits Authorized [id number] Authorized Specialty Services Required 09/26/[phone] Question Answer Referral Priority Within 10 days (routine) Where should this appointment be scheduled? [facility] Reason for Referral Malignant Oncology (Solid Organ Cancer) Comments Pancreatic mass/adenocarcinoma Encounter Details Date Type Department Care Team (Late st Contact Info) Description 09/26/2023 Orders Only Access [facility], [place] [facility] [address] [place] [address] Ext *DO NOT REMOVE THIS DEPARTMENT* [place] [address] Request, External Referral Pancreatic mass*; Pancreatic [...] 8:30 AM EDT Office Visit Palliative Medicine [facility] [address] [place] [address] Chacha Bojorquez MD 400 [facility] [place] [address] 10/14/2023 8:15 AM EDT Office Visit Urology, [facility] 132 [facility] [place] [address] Berny Wakefield MD 27 [facility] [place] [id number] Scheduled Referrals Name Type Priority Associated Diagnoses Orde r Schedule HEMATOLOGY/ONCOLOG Y REFERRAL OP Referral Within 10 days (routine) [...] unspecified documented in this encounter Care Teams Grievance Coordinator Relationship Specialty Start Date End Date Bailee Colon MD 6 [facility] [address], [place] [address] PCP - General Family Medicine 06/27/23 documented as of this encounter
--- OUTSIDE RECORDS SUMMARY | 2023-10-31 03:32 | External Medical Summary | Continuity of Care Document ---
Author Name Unknown Organization [address] Address [address] [place] [address] [place] [id number] Care Team Providers Care Bowl Turner Name Role Phone Bailee Colon Primary Care Physician [phone] Encounter [facility] [id number] Date(s): 09/12/23 - 09/12/[address] [facility] [address] [facility], [address] [place] [address] [phone] Encounter Diagnosis Abdominal pain(Discharge Diagnosis) - 09/12/23 Jaundice(Discharge Diagnosis) - 09/12/23 Discharge Disposition: Home or Self Care Attending Physician: LEVAR Cortes Katy Marie Referring Physician: LEVAR Cortes Katy Marie Allergies, Adverse Reactions, Alerts Substance Criticality Severity Reaction Reaction Severity Status ciprofloxacin Dysequilbrium Ac tive Assessment and Plan Extracted from: Title:Office Visit Note Author:Lisa Rodriguez Date:09/12/23 1.Jaundice STATUS: acute, uncontrolled - patient and patient'swife report2-3daysjaundice - patient reportsdark colored urine,supervisor forming department colored stools, vague abominal pain and itchiness on the back x2-3 weeks - blood sugarshave been elevated for the past few months,which werepreviously controlled on metformin andTradjenta DATA: physical exam, labs ordered, CT abd ordered GOAL: resolution PLAN: continue monitoring - Stat CT abd with contrastordered + CBC, CMP, and tylenollevels - DDx:pancreatic cancer, Tylenol toxicity, liver cancer, liver failure, biliary duct occlusion, hepatic thrombosis (List is not all inclusive, these are the most likely diagnoses with the given presenting symptoms at this time) - Plan will be finalized pending diagnosticresults - Remain on current dose of metformin and tradjenta, and continue to monitor blood sugars daily Immunizations Given and Recorded Vaccine Date Status [...] q6h, Disp# 8.5 g, Refills: 3, Pharmacy: [facility]/pharmacy #[id number] Start Date: 05/02/21 Status: Ordered cyclobenzaprine 5 mg oral tablet Start: 08/23/23 10:08:00 AM EDT, 1 tab, PO, qhs, Disp# 30 tab, Refills: 0, PRN: NEEDED FOR SPASM,Pharmacy: [facility] [id number] Start Date: 08/23/23 Status: Ordered dutasteride 0.5 mg oral capsule Start: 07/20/20 11:13:00 AM EDT, 1 cap, PO, Daily, Disp# 30 cap, Refills: 3, Pharmacy: [facility]/pharmacy #[id number] Start Date: 07/20/20 Status: Ordered Eliquis 5 mg oral tablet Start: 03/01/23 9:38:00 AM EST, 1 tab, PO, bid, Disp# 60 tab, Refills: 11, Pharmacy: [facility] [id number] Start Date: 03/01/23 Status: Ordered Entresto 24 mg-26 mg oral tablet Start: 04/25/23 11:47:00 AM EST, 1 tab, PO, bid, Disp# 60 tab, Refills: 11, Pharmacy: [facility]/pharmacy #[id number] Start Date: 04/25/23 Status: Ordered Flomax 0.4 mg oral capsule Start: 11/15/20 8:06:00 AM EDT, 1 cap, PO, qAM, Disp# 90 cap, Refills: 3, Pharmacy: [facility]/pharmacy #[id number] Start Date: 11/15/20 Status: Ordered Flonase 50 mcg/inh nasal spray Start: 03/27/23 12:45:00 PM EST, 1 spray, each nostril, Daily, Disp# 16 g, Refills: 3, Pharmacy: [facility]/pharmacy #[id number] Start Date: 03/27/23 Status: Ordered furosemide 20 mg oral tablet Start: 12/26/21 8:58:00 AM EDT, See Instructions, Disp# 90 tab, Refills: 4, as needed for weight gain 2 lbs in 24 hours or 5 lbs in a week, Pharmacy: [facility] ST[id number] Start Date: 12/26/21 Status: Ordered inhaler spacer Start: 10/14/20 11:17:00 AM EDT, See Instructions, Disp# 1 each, dispense 1, Pharmacy: [facility]/pharmacy #[id number] Start Date: 10/14/20 Status: Ordered meclizine 25 mg oral tablet Start: 02/18/23 2:48:00 PM EST, See Instructions, Disp# 15 tab, Refills: 1, 1 tab PO daily PRN dizziness, PRN: as needed for dizziness, Pharmacy: [facility]/pharmacy #[id number] Start Date: 02/18/23 Status: Ordered metFORMIN 500 mg oral tablet Start: 06/03/23 9:33:00 AM EST, See Instructions, Disp# 360 tab, Refills: 1, TAKE 2 TABLETS BY MOUTH WITH NOON MEAL AND WITH EVENING MEAL, Pharmacy: [id number] Start Date: 06/03/23 Status: Ordered metoprolol succinate 25 mg oral tablet, extended release Start: 07/24/23 9:44:00 AM EDT, 1.5 tab, PO, Daily, Disp# 135 tab, Refills: 3, Pharmacy: [facility]/pharmacy #[id number] Start Date: 07/24/23 Status: Ordered multivitamin Start: 07/27/21 8:00:00 AM EDT, 1 tab, PO, Daily Start Date: 07/27/21 Status: Ordered One Touch Finepoint (25G) Lancets Start: 06/26/17 8:54:00 AM EDT, See Instructions, Disp# 1 box, Refills: 6, test daily, Dx : E11.9, [id number] Start Date: 06/26/17 Status: Ordered One Touch Ultra Test Strips 100 ct Start: 10/27/19 4:37:00 PM EDT, See Instructions, Disp# 100 each, Refills: 6, test daily, Dx: E11.9,[id number] Start Date: 10/27/19 Status: Ordered One Touch UltraMini Glucose Monitor Start: 06/26/17 8:52:00 AM EDT, See Instructions, Disp# 1 unit, Refills: 0, test daily, Dx : E11.9, Pharmacy: [facility] #[id number] Start Date: 06/26/17 Status: Ordered pravastatin 20 mg oral tablet Start: 08/28/22 5:41:00 PM EDT, See Instructions, Disp# 90 tab, Refills: 3, TAKE 1 TABLET BY MOUTH EVERYDAY AT BEDTIME, Pharmacy: [id number] Start Date: 08/28/22 Status: Ordered Tradjenta 5 mg oral tablet Start: 08/29/22 8:05:00 AM EDT, See Instructions, Disp# 90 tab, Refills: 3, TAKE 1 TABLET BY MOUTH EVERY DAY, Pharmacy: [facility] #[id number] Start Date: 08/29/22 Status: Ordered traMADol 50 mg oral tablet Start: 09/06/23 9:18:00 AM EDT, See Instructions, Disp# 120 tab, Refills: 0, 1-2 tab PO q6h for pain not to exceed 400 mg/day, Note to Pharmacy: PDMP verified,, PRN: as needed for pain, [id number] Start Date: 09/06/23 Status: Ordered Vitamin D3 Start: 07/27/21 8:00:00 AM EDT Start Date: 07/27/21 Status: Ordered Mental Status 09/12/23 Barriers to Learning one year None evide nt Mandatory Health Literacy Documentation Yes Health Literacy Communication Barriers N ever Primary Language Chilean Problem List Condition Confirmation Course Effective Dates [...] Dates Health Status Cl inical Service Informant Abdominal pain Discharge Diagnosis 09/12/23 Non-Specified Jaundice Discharge Diagnosis 09/12/23 Non-Specified Procedures Procedure Date Related Diagnosis Body [...] to oldest [Reference Range]: 1 Patient Weight 97.6 kg (09/12/23 4:21 PM) Temperature [36.5-37.9 DegC] 35.8 DegC *LOW* (09/12/23 4:21 PM) Heart Rate 71 bpm (09/12/23 4:21 PM) Blood Pressure 110/70mmHg (09/12/23 4:21 PM) Cuff Pulse Pressure 40 mmHg (09/12/23 4:21 PM) Social History Social History Type Response Smoking Status Never smoked cigaret lisandra Sex Male [facility] Outpt Note * LEVAR Cortes, Pinky Damon: MODIFY Sherley Rodriguez: PERFORM Event Display: [facility] Outpt Note Authored Date: [id number] Chief Complaint Areas of skin are yellow. Question if has liver issues. DM issues. Blood sugaras have been higher since had cortisone shots. HIgh 100's to 300's. Feels tired all the time. Checks daily fasting in the morning. History of Present Illness Jaundice Alejandra is83M presenting today with 2-3x days jaundice as observed by his alejo. He has a pertinentPMH of CHF, HTN, prostate cancer, and DM.He additionallyreportsdark colored urine,supervisor forming department colored stools, vague abdominal pain, and itchiness on the back x2-3 weeks. He has lost 6.8 lbs since July 2023 withoutchange in appetite. He has been taking Tylenol 2x daily and tramadol for back pain.He denies nausea, vomiting, diarrhea, constipation, bloating,Patient deniesalcoholuse. Hyperglycemia Pt. had cortisone shot in May, and blood sugars have slowly been rising since then. He checks hisblood sugar in the morning, it was up to 300 this morning. He is currently taking metformin 500mg 2x dailyand Tradjenta 5mg oncedaily. Review of Systems Negative unless otherwise stated in HPI. Physical Exam Vitals & Measurements T:35.8C HR:71(Monitored) BP:110/70 SpO2:95% WT:97.6kg WT:97.600kg(Dosing) PHQ2 Data(Data Documented on:09/12/2023 16:14) Emotional health assessment NEGATIVE General:Alert and oriented, No acute distress. Eye:Pupils are equal, round and reactive to light, Extraocular movements are intact, Sclera areicteric HEENT:Tympanic membranes are clear, No pharyngeal erythema, No sinus tenderness. Neck:Supple, Non-tender, No jugular venous distention, No lymphadenopathy, No thyromegaly. Respiratory:Lungs are clear to auscultation, Respirations non-labored, Breath sounds equal JOHNNIE. Cardiovascular:Normal rate, Regular rhythm, No murmur, Rubs, gallops. Gastrointestinal:Soft, Non-tender, Non-distended, Normal bowel sounds.Periumbilical painupon palpation Integumentary:No rashes, No abnormal lesions. Grosslyjaundiced. MSK:Normal ROM, Normal Gait, Normal Strength Neurologic:Alert, Oriented, No focal deficits. Psychiatric:Cooperative, Appropriate mood & affect. Assessment/Plan 1.Jaundice STATUS: acute, uncontrolled - patient and patient'swife report2-3daysjaundice - patient reportsdark colored urine,supervisor forming department colored stools, vague abominal pain and itchiness on the back x2-3 weeks - blood sugarshave been elevated for the past few months,which werepreviously controlled on metformin andTradjenta DATA: physical exam, labs ordered, CT abd ordered GOAL: resolution PLAN: continue monitoring - Stat CT abd with contrastordered + CBC, CMP, and tylenollevels - DDx:pancreatic cancer, Tylenol toxicity, liver cancer, liver failure, biliary duct occlusion, hepatic thrombosis (List is not all inclusive, these are the most likely diagnoses with the given presenting symptoms at this time) - Plan will be finalized pending diagnosticresults - Remain on current dose of metformin and tradjenta, and continue to monitor blood sugars daily Attestation After being unable to get CT approved discussed with patient that he can go to the ER or we can tryfor the CT scan again tomorrow morning. PT and would like ER evaluation. I feel this is in hisbest interest. I was physically present with the medical student and patient, having personally performed/re-performed the physical exam and medical decision making activities for the service. I verify that thehistory, physical exam and medical decision making as documented in the note by the medical studentare accurate. 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 Exercise [...] due11/15/21and every 1year Due Adult COVID-19 Vaccination due09/12/23Unknown Frequency Adult Social Determinants of Health Screening due09/12/23Unknown Frequency Shingles Vaccine due09/12/23One-time only Due In Future Adult Influenza Vaccine not due until09/29/23and every 1year Diabetes Management A1c not due until06/26/24and every 366day Satisfied(in the past 1 year) Satisfied Adult Influenza Vaccine on01/31/23.Satisfied by BETH Manning, Maddie Body Mass Index on03/01/23.Satisfied by ARTIE Wiley, Diamond Diabetes Management A1c on06/26/23.Satisfied by Contributor_system, [email or web address] Diabetes Nephropathy Management on12/12/22.Satisfied by Contributor_system, [email or web address] Diabetic Eye Exam on03/26/23.Satisfied by DUSTIN Hawthorne Lynnae Lipid Screening on12/12/22.Satisfied by Contributor_system, [email or web address] Electronic Signature on File CC: Ange Corea, [address] [place] [address] Electronically Reviewed/Signed by: Sherley Rodriguez Author Signature Dt/Tm:09/12/2023 05:10 PM Student, Physician Clerk To Justice Electronically Reviewed/Signed by: LEVAR Tidwell Signature Dt/Tm: 09/12/2023 05:30 PM Department of Family Medicine [place] Patient Care team information Care Team Personnel Name: SHREYA Green Lynn Position: Physician Clerk To Justice Exempt - Vasc Surg Member Role: Lifetime Relationship Address: Address: [address] [place] [address] [place] Name: MD Colon Ravishankar E Position: Physician Member Role: Primary Care Provider Address: Address: [address] [place] [address] [place] Name: Virginia Maddox Kyle Position: Pharmacist Member Role: Pharmacy - Lifetime Address: Address: [address] [place] [id number] [place] Care Team Related Persons Name: GUNNAR MTZ Address: home [address] [place] [address], [phone] Name: NALINI MTZ Name: JOSS MTZ Address: home No Address Provided Name: JOSS MTZ"
--- OUTSIDE RECORDS SUMMARY | 2023-10-31 03:32 | External Medical Summary | Continuity of Care Document ---
Author Name Unknown Organization [facility] [address] [place] [address] [place] [id number] Care Team Providers Care Show Operations Supervisor Name Role Phone Bailee Colon Primary Care Physician [phone] [id number] Date(s): 09/13/23 - 09/13/23 [facility].[address], [address] [place] [address] [phone] Discharge Disposition: Home or Self Care Attending Physician: DO Andrade Jason D Referring Physician: DO Andrade Jason D Allergies, Adverse [...] q6h, Disp# 8.5 g, Refills: 3, Pharmacy: [facility]/pharmacy #[id number] Start Date: 05/02/21 Status: Ordered cyclobenzaprine 5 mg oral tablet Start: 08/23/23 10:08:00 AM EDT, 1 tab, PO, qhs, Disp# 30 tab, Refills: 0, PRN: NEEDED FOR SPASM,Pharmacy: [id number] Start Date: 08/23/23 Status: Ordered dutasteride 0.5 mg oral capsule Start: 07/20/20 11:13:00 AM EDT, 1 cap, PO, Daily, Disp# 30 cap, Refills: 3, Pharmacy: [facility]/pharmacy #[id number] Start Date: 07/20/20 Status: Ordered Eliquis 5 mg oral tablet Start: 03/01/23 9:38:00 AM EST, 1 tab, PO, bid, Disp# 60 tab, Refills: 11, Pharmacy: [facility] [id number] Start Date: 03/01/23 Status: Ordered Entresto 24 mg-26 mg oral tablet Start: 04/25/23 11:47:00 AM EST, 1 tab, PO, bid, Disp# 60 tab, Refills: 11, Pharmacy: [facility]/pharmacy #[id number] Start Date: 04/25/23 Status: Ordered Flomax 0.4 mg oral capsule Start: 11/15/20 8:06:00 AM EDT, 1 cap, PO, qAM, Disp# 90 cap, Refills: 3, Pharmacy: [facility]/pharmacy #[id number] Start Date: 11/15/20 Status: Ordered Flonase 50 mcg/inh nasal spray Start: 03/27/23 12:45:00 PM EST, 1 spray, each nostril, Daily, Disp# 16 g, Refills: 3, Pharmacy: [facility]/pharmacy #[id number] Start Date: 03/27/23 Status: Ordered furosemide 20 mg oral tablet Start: 12/26/21 8:58:00 AM EDT, See Instructions, Disp# 90 tab, Refills: 4, as needed for weight gain 2 lbs in 24 hours or 5 lbs in a week, Pharmacy: [id number] Start Date: 12/26/21 Status: Ordered inhaler spacer Start: 10/14/20 11:17:00 AM EDT, See Instructions, Disp# 1 each, dispense 1, [id number] Start Date: 10/14/20 Status: Ordered meclizine 25 mg oral tablet Start: 02/18/23 2:48:00 PM EST, See Instructions, Disp# 15 tab, Refills: 1, 1 tab PO daily PRN dizziness, PRN: as needed for dizziness, [id number] Start Date: 02/18/23 Status: Ordered metFORMIN 500 mg oral tablet Start: 06/03/23 9:33:00 AM EST, See Instructions, Disp# 360 tab, Refills: 1, TAKE 2 TABLETS BY MOUTH WITH NOON MEAL AND WITH EVENING MEAL, Pharmacy: [id number] Start Date: 06/03/23 Status: Ordered metoprolol succinate 25 mg oral tablet, extended release Start: 07/24/23 9:44:00 AM EDT, 1.5 tab, PO, Daily, Disp# 135 tab, Refills: 3, [id number] Start Date: 07/24/23 Status: Ordered multivitamin Start: 07/27/21 8:00:00 AM EDT, 1 tab, PO, Daily Start Date: 07/27/21 Status: Ordered One Touch Finepoint (25G) Lancets Start: 06/26/17 8:54:00 AM EDT, See Instructions, Disp# 1 box, Refills: 6, test daily, Dx : E11.9, [id number] Start Date: 06/26/17 Status: Ordered One Touch Ultra Test Strips 100 ct Start: 10/27/19 4:37:00 PM EDT, See Instructions, Disp# 100 each, Refills: 6, test daily, Dx: E11.9,[id number] Start Date: 10/27/19 Status: Ordered One Touch UltraMini Glucose Monitor Start: 06/26/17 8:52:00 AM EDT, See Instructions, Disp# 1 unit, Refills: 0, test daily, Dx : E11.9, Pharmacy: [facility]/pharmacy #[id number] Start Date: 06/26/17 Status: Ordered pravastatin 20 mg oral tablet Start: 08/28/22 5:41:00 PM EDT, See Instructions, Disp# 90 tab, Refills: 3, TAKE 1 TABLET BY MOUTH EVERYDAY AT BEDTIME, Pharmacy: [id number] Start Date: 08/28/22 Status: Ordered Tradjenta 5 mg oral tablet Start: 08/29/22 8:05:00 AM EDT, See Instructions, Disp# 90 tab, Refills: 3, TAKE 1 TABLET BY MOUTH EVERY DAY, Pharmacy: [facility]/pharmacy #[id number] Start Date: 08/29/22 Status: Ordered traMADol 50 mg oral tablet Start: 09/06/23 9:18:00 AM EDT, See Instructions, Disp# 120 tab, Refills: 0, 1-2 tab PO q6h for pain not to exceed 400 mg/day, Note to Pharmacy: PDMP verified,, PRN: as needed for pain, Pharmacy: [facility]/pharmacy #[id number] Start Date: 09/06/23 Status: Ordered Vitamin [...] Personnel Name: SHREYA Green Lynn Position: Physician Vacuum Evaporation Operator Exempt - Vasc Surg Member Role: Lifetime Relationship Address: Address: [address] [place] [id number] Name: MD Isaiah, Bailee Bailey Position: Physician Member Role: Primary Care Provider Address: Address: [address] [place] [id number] Name: Virginia Maddox Kyle Position: Pharmacist Member Role: Pharmacy - Lifetime Address: Address: [address] [place] [address] Care Team Related Persons Name: GUNNAR MTZ Address: home [address] [facility] [phone] Name: NALINI MTZ Name: JOSS MTZ Address: home No Address Provided Name: JOSS MTZ
--- OUTSIDE RECORDS SUMMARY | 2023-10-31 03:32 | External Medical Summary | Summary of Care ---
Author Name Unknown Organization [facility] Address [address] [place] [address] Phone [phone] Care Team Providers Care Solution Design And Analysis Manager Name Role Phone Bailee Colon MD Primary Care Provi caroline Encounter Details Date Type Department Care Team (Late st Contact Info) Description 09/16/2023 Population Health External Data Unspecified Department Allergies No known active allergiesdocumented as of this encounter (statuses as of 09/16/2023) Medications Medication Sig Dispensed Refills Start Date [...] as of this encounter (statuses as of 09/16/2023) Active Problems Problem Noted Date Diagnosed Date Elevated prostate specific antigen (PSA) 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 Dermatitis 04/03/2006 documented as of this encounter (statuses as of 09/16/2023) Social History Tobacco Use Types Packs/Day Years [...] 10/14/2023 8:15 AM EDT Office Visit Urology, [facility] [address] [facility] [place] [id number] Berny Wakefield MD [address] [facility] [address] [place] [address] Health Maintenance [...] filedocumented as of this encounter Care Teams Solution Design And Analysis Manager Relationship Specialty Start Date End Date Bailee Colon MD 6 [facility] [address] [place] [address] PCP - General Family Medicine 06/27/23 documented as of this encounter
[2023-10-31 05:00] LABS: Basophils # (auto) 0.02 K/uL (0.00-0.20); Basophils % (auto) 0.3 %; Eosinophils # (auto) 0.05 K/uL (0.00-0.50); Eosinophils % (auto) 0.6 %; Hematocrit (blood only) 33.6 % (42.0-52.0); Hemoglobin 11.1 g/dl (14.0-18.0); Immature Granulocytes # (auto) 0.03 K/uL (0.01-0.20); Immature Granulocytes % (auto) 0.4 %; Lymphocytes # (auto) 1.21 K/uL (1.20-3.40); Lymphocytes % (auto) 15.4 %; Mean Corpuscular Hemoglobin 32.5 pg (25.0-34.0); Mean Corpuscular Volume 98.2 fL (80.0-100.0); Mean Platelet Volume 9.9 fL (9.4-12.4); Monocytes % (auto) 8.9 %; Neutrophils # (auto) 5.87 K/uL (1.40-6.50); Neutrophils % (auto) 74.4 %; Platelet Count 122 K/uL (130-400); RDW Coefficient of Variation 14.4 % (11.5-14.5); RDW Standard Deviation 51.8 fL (36.4-46.3); Red Blood Count 3.42 M/uL (4.70-6.10); White Blood Count 7.88 K/ul (4.8-10.8)
[2023-10-31 05:10] LABS: Albumin Globulin Ratio 1.4 (0.9-2); Albumin Level 3.2 gm/dl (3.4-5.0); BUN Creatinine Ratio 29.3 (10-20); Bilirubin,Total 3.4 mg/dl (0.2-1.0); Calcium 8.6 mg/dl (8.6-10.3); Creatinine Clr Calc Pharmacy 86.8 ml/min; Est GFR (African American) 98.3 ml/min; Est GFR (Non-African American) 84.8 ml/min; Globulin 2.3 gm/dl (2.5-4.0); Magnesium 1.5 mg/dl (1.7-2.4); Potassium 4.6 mmol/L (3.5-5.1); Total Protein 5.5 gm/dl (6.0-8.3)
[2023-10-31 05:24] LABS: INR 1.2 (0.9-1.1); Prothrombin Time 12.5 Seconds (9.0-12.0)
[2023-10-31 05:30] LABS: Troponin I High Sensitivity 63.6 pg/ml (0-20)
[2023-10-31] MEDS: CEFEPIME 2,000 MG in SYRINGE 0 ML IV SCH (05:53)
[2023-10-31] MEDS: VANCOMYCIN HCL 1,000 MG in SODIUM CHLORIDE 0.9% 250 ML IV SCH (05:53)
[2023-10-31] MEDS: TAMSULOSIN HCL 0.4 MG CAP PO SCH (07:59)
[2023-10-31] MEDS: FINASTERIDE 5 MG TAB PO SCH (07:59)
[2023-10-31] MEDS: MAGNESIUM SULFATE / D5W 1 GM/100 ML BAG IV SCH (08:01)
[2023-10-31] MEDS ORDERED: VALSARTAN/SACUBITRIL 26/24MG TAB PO SCH (09:00)
--- NOTE | 2023-10-31 11:18 | Pharmacy Report ---
Pharmacy PK ABX Note - Date of Service October 31, 2023 - Assessment and Plan Assessment 83 year old M receiving VANCOMYCIN + CEFEPIME for treatment of sepsis secondary to UTI. Pertinent microbiologic data includes: + pyuria on UA, UCx currently growing GNR's, BLCX x 1 no growth to date; procal 0.22; prior h/o ps aeruginosa and e faecalis in urine cx's. Day # 2 of antimicrobial therapy. Plan Vancomycin * Loading dose: 2000 mg IV x 1 given last evening * Maintenance dose: 1000 mg IV every 12 hours * Regimen is predicted to achieve target AUC/MALCOLM of 400-600 mg/L.hr * Trough level ordered for: 11/01/23 (prior to 3rd dose) Pharmacy will continue to follow and will adjust dose/frequency as necessary. Thank you. Pharmacy has transitioned to AUC monitoring for vancomycin. AUC/MALCOLM is the preferred PK/PD target and is associated with decreased risk of nephrotoxicity compared to traditional trough targets.
--- NOTE | 2023-10-31 17:12 | Discharge Summary ---
Date of Service October 31, 2023 Admission HPI Per Admitting Provider Luís is an 83-year-old male with PMH of HTN, diabetes, atrial fibrillation (on Eliquis), aortic valve repair, CHF, diabetic foot ulcer, osteomyelitis of toe, chronic pancreatitis, and severe aortic stenosis. He presented via EMS on 10/29 for altered mental status. Patient's reported he was sitting outside around 1400 and not eating or drinking much; when patient's attempted to lift the patient around 1600, she was unable to do so. He reports that he is unsure why he is unable to stand, but was feeling dizzy/lightheaded at the time. Patient's reports that he did not exhibit any strokelike symptoms such as slurred speech, facial droop, unilateral deficits. Patient was febrile on EMS arrival. Patient's is unsure about this, believes he may have been warm as he was sitting out in the heat yesterday. 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 Recent PET scan done outpatient; family is currently discussion for palliative care measures. Patient took his regular morning medications today; no recent change in medications. Patient last took his Eliquis last night. Patient denies smoking, tobacco use, and alcohol use. Patient is tachycardic around 102 bpm, hypoxic at 89% on RA, has a low-grade fever at 37.5 C at time of admission. ED course: Diltiazem 5 mg IV NSS 1500 mL IV ROS: Patient endorses fever (however patient's believes this may have been due to sitting out in the heat) dizziness, confusion, and incoherent though process. Patient denies chills, JOHNSON, chest pain, N/V/D, change in urinary/bowel habits, or numbness/tingling/pain in the arms or legs. Admission Exam Per Admitting Provider General: no acute distress; non-toxic appearing; well-nourished; cooperative; SpO2 89% on RA HEENT: normocephalic, atraumatic; no scleral icterus; PERRLA w/ EOMs intact; vision and hearing grossly intact Neck: supple; no lymphadenopathy; trachea midline Skin: warm, dry without signs of tenting; no cyanosis; no rashes, bruising, lesions, or erythema noted CV: chest wall NTP; RRR; S1/S2 normal; no murmurs/rubs/gallops; pulses intact and symmetric at radial, DP, and PT Lungs: no acute respiratory distress; symmetrical chest wall expansion; clear breath sounds across all lung stewart w/o adventitious sounds; no wheezing ABD: Soft, NTP; BS present; no rebound/guarding; no distention MSK: no tics or fasciculations; no edema noted in the LEs b/l, nonerythematous Neuro: A&Ox3; normal mood and affect; fluent speech; no focal deficits; sensation grossly intact in the LEs b/l Principal Diagnosis weakness, dehydration, UTI Discharge Exam Constitutional WD/WN, vitals as above Respiratory normal respiratory effort, lungs clear to auscultation Cardiovascular RRR, no murmur, no edema Gastrointestinal (Abdomen) normal bowel sounds, soft, nontender, no hepatosplenomegaly Skin no rashes, warm and dry Neurologic AOx2 Discharge Data Allergies Allergy/AdvReac Type Severity Reaction Status Date / Time ciprofloxacin Allergy Intermediate Dysequilibr Verified 10/30/23 21:05 ium Consultations 10/30/23 19:38 ED Decision to Admit Stat Ordered Studies Chest X-Ray 10/30/23 17:56 XR chest 1V portable HISTORY: 83 years-old Male Chest pain, nonspecific COMPARISON: 08/09/2022 TECHNIQUE: AP view the chest FINDINGS: Cardiac silhouette is enlarged with prosthetic aortic valve. An electronic device projects over the left heart border. Mild hypoinflation. No pneumothorax or pleural effusion. Hiatal hernia. Left shoulder arthroplasty. IMPRESSION: 1. Cardiomegaly without acute process. 2. Hiatal hernia. ACT 112: Negative or not required by law. The above report was generated using voice recognition software. It may contain grammatical, syntax or spelling errors. Electronically signed by: Maxim Adkins M.D. 10/30/2023 6:14 PM Head CTA 10/30/23 17:57 CT angio head wo/w, CT angio neck with con CLINICAL HISTORY: 83 years-old Male with AMS. Acutely altered mental status COMPARISON STUDY: None TECHNIQUE: Unenhanced axial CT scan of the brain is performed. Subsequently, following the IV administration of 116 cc of Optiray, CT angiogram of the head and neck was performed from the skull base to the vertex. Images are reviewed in the axial, sagittal, and coronal planes. 3-D MIPS images are created and assessed. IV contrast was administered without complication. All measurements were obtained according to NASCET criteria. A dose lowering technique was utilized adhering to the principles of ALARA. CT DOSE: 1633.97 mGy.cm FINDINGS: CT BRAIN: There is no acute intracranial hemorrhage, midline shift, hydrocephalus, intracranial mass, territorial ischemia or abnormal extra-axial collections. No abnormal intra-axial or extra-axial enhancement. Involutional changes with chronic microvascular ischemic disease. Cerebral vascular calcifications. Mastoid air cells and middle ear cavities are clear. No calvarial fracture. Paranasal sinuses are clear. CT ANGIOGRAM OF THE HEAD AND NECK: Atherosclerosis of the aorta. Patency of the innominate and image subclavian arteries. There is prominent atherosclerotic plaque of the bilateral carotid bulbs and proximal cervical segments of the internal carotid arteries. There is less than 50% stenosis on the left. 85% stenosis within the proximal right ICA. There is moderate stenosis involving the cavernous, clinoid and supraclinoid segments of the internal carotid arteries secondary to extensive atherosclerosis. Multifocal mild to moderate stenosis noted throughout the middle cerebral arteries. Anterior cerebral arteries are patent. Codominant vertebral arteries. High-grade stenosis at the origin of the left vertebral artery. The right vertebral artery is widely patent. Patent basilar artery. Mild to moderate multifocal stenoses throughout the posterior cerebral arteries. There is no abnormal intracranial enhancement identified. Dural sinuses appear patent. Lung apices appear clear without pneumothorax. Unremarkable soft tissues. Degenerative changes of the spine. IMPRESSION: 1. No acute intracranial abnormality. 2. High-grade stenosis at the origin of the right ICA. 3. High-grade stenosis at the origin of the left vertebral artery. 4. Mild to moderate multifocal stenoses of the intracranial arteries. 5. No arterial occlusion, aneurysm or dissection. ACT 112: Negative or not required by law. The above report was generated using voice recognition software. It may contain grammatical, syntax or spelling errors. Electronically signed by: Maxim Adkins M.D. 10/30/2023 6:46 PM Neck CTA 10/30/23 17:58 CT angio head wo/w, CT angio neck with con CLINICAL HISTORY: 83 years-old Male with AMS. Acutely altered mental status COMPARISON STUDY: None TECHNIQUE: Unenhanced axial CT scan of the brain is performed. Subsequently, following the IV administration of 116 cc of Optiray, CT angiogram of the head and neck was performed from the skull base to the vertex. Images are reviewed in the axial, sagittal, and coronal planes. 3-D MIPS images are created and assessed. IV contrast was administered without complication. All measurements were obtained according to NASCET criteria. A dose lowering technique was utilized adhering to the principles of ALARA. CT DOSE: 1633.97 mGy.cm FINDINGS: CT BRAIN: There is no acute intracranial hemorrhage, midline shift, hydrocephalus, intracranial mass, territorial ischemia or abnormal extra-axial collections. No abnormal intra-axial or extra-axial enhancement. Involutional changes with chronic microvascular ischemic disease. Cerebral vascular calcifications. Mastoid air cells and middle ear cavities are clear. No calvarial fracture. Paranasal sinuses are clear. CT ANGIOGRAM OF THE HEAD AND NECK: Atherosclerosis of the aorta. Patency of the innominate and image subclavian arteries. There is prominent atherosclerotic plaque of the bilateral carotid bulbs and proximal cervical segments of the internal carotid arteries. There is less than 50% stenosis on the left. 85% stenosis within the proximal right ICA. There is moderate stenosis involving the cavernous, clinoid and supraclinoid segments of the internal carotid arteries secondary to extensive atherosclerosis. Multifocal mild to moderate stenosis noted throughout the middle cerebral arteries. Anterior cerebral arteries are patent. Codominant vertebral arteries. High-grade stenosis at the origin of the left vertebral artery. The right vertebral artery is widely patent. Patent basilar artery. Mild to moderate multifocal stenoses throughout the posterior cerebral arteries. There is no abnormal intracranial enhancement identified. Dural sinuses appear patent. Lung apices appear clear without pneumothorax. Unremarkable soft tissues. Degenerative changes of the spine. IMPRESSION: 1. No acute intracranial abnormality. 2. High-grade stenosis at the origin of the right ICA. 3. High-grade stenosis at the origin of the left vertebral artery. 4. Mild to moderate multifocal stenoses of the intracranial arteries. 5. No arterial occlusion, aneurysm or dissection. ACT 112: Negative or not required by law. The above report was generated using voice recognition software. It may contain grammatical, syntax or spelling errors. Electronically signed by: Maxim Adkins M.D. 10/30/2023 6:46 PM Abnormal lab results 10/30/23 10/30/23 10/30/23 Range/Units 17:55 18:00 18:32 RBC 4.05 L (4.70-6.10) M/uL Hgb 13.1 L (14.0-18.0) g/dl POC Hgb 13.3 L (14.0-18.0) g/dl Hct 38.8 L (42.0-52.0) % POC Hct 39 L (42-52) % RDW Std Deviation 50.1 H (36.4-46.3) fL Plt Count (130-400) K/uL Neut # (Auto) 7.06 H (1.40-6.50) K/uL Lymph # (Auto) 1.11 L (1.20-3.40) K/uL [place] # (Auto) 0.65 H (0.11-0.59) K/uL PT (9.0-12.0) Seconds INR (0.9-1.1) POC Sodium 133 L (135-144) mmol/L Sodium 133 L (136-145) mmol/L POC Chloride 98 L (101-112) mmol/L POC Total CO2 23 L (24-31) mmol/L POC BUN 29 H (7-18) mg/dl BUN 30 H (6-23) mg/dl BUN/Creatinine Ratio 31.3 H (10-20) Glucose 183 H (70-99(Fasting)) mg/dl POC Glucose (70-99) mg/dl POC Glucose (other) 183 H (70-99) mg/dl Magnesium (1.7-2.4) mg/dl Total Bilirubin 2.7 H (0.2-1.0) mg/dl AST 268 H (13-39) U/L ALT 233 H (7-52) U/L Alkaline Phosphatase 140 H (34-104) U/L Troponin I High Sens 30.7 H (0-20) pg/ml Total Protein (6.0-8.3) gm/dl Albumin (3.4-5.0) gm/dl Globulin (2.5-4.0) gm/dl Urine Appearance Turbid A (Clear) Ur Specific [place] 1.040 H (1.000-1.030) Urine Protein 1+ H (Negative) Urine Blood 1+ H (Negative) Urine Nitrite Positive A (Negative) Urine Bilirubin 1+ H (Negative) Urine Urobilinogen Positive H (Negative) Ur Leukocyte Esterase 3+ H (Negative) Urine WBC (Auto) >50 H (0-5) /hpf Urine RBC (Auto) 6-10 H (0-2) /hpf Urine Bacteria (Auto) 4+ H (None Seen) 10/30/23 10/30/23 10/31/23 Range/Units 19:43 23:46 00:19 RBC (4.70-6.10) M/uL Hgb (14.0-18.0) g/dl POC Hgb (14.0-18.0) g/dl Hct (42.0-52.0) % POC Hct (42-52) % RDW Std Deviation (36.4-46.3) fL Plt Count (130-400) K/uL Neut # (Auto) (1.40-6.50) K/uL Lymph # (Auto) (1.20-3.40) K/uL [place] # (Auto) (0.11-0.59) K/uL PT (9.0-12.0) Seconds INR (0.9-1.1) POC Sodium (135-144) mmol/L Sodium (136-145) mmol/L POC Chloride (101-112) mmol/L POC Total CO2 (24-31) mmol/L POC BUN (7-18) mg/dl BUN (6-23) mg/dl BUN/Creatinine Ratio (10-20) Glucose (70-99(Fasting)) mg/dl POC Glucose 163 H (70-99) mg/dl POC Glucose (other) (70-99) mg/dl Magnesium (1.7-2.4) mg/dl Total Bilirubin (0.2-1.0) mg/dl AST (13-39) U/L ALT (7-52) U/L Alkaline Phosphatase (34-104) U/L Troponin I High Sens 40.7 H D 54.9 H* D (0-20) pg/ml Total Protein (6.0-8.3) gm/dl Albumin (3.4-5.0) gm/dl Globulin (2.5-4.0) gm/dl Urine Appearance (Clear) Ur Specific [place] (1.000-1.030) Urine Protein (Negative) Urine Blood (Negative) Urine Nitrite (Negative) Urine Bilirubin (Negative) Urine Urobilinogen (Negative) Ur Leukocyte Esterase (Negative) Urine WBC (Auto) (0-5) /hpf Urine RBC (Auto) (0-2) /hpf Urine Bacteria (Auto) (None Seen) 10/31/23 10/31/23 10/31/23 Range/Units 04:00 08:10 09:28 RBC 3.42 L (4.70-6.10) M/uL Hgb 11.1 L (14.0-18.0) g/dl POC Hgb (14.0-18.0) g/dl Hct 33.6 L (42.0-52.0) % POC Hct (42-52) % RDW Std Deviation 51.8 H (36.4-46.3) fL Plt Count 122 L (130-400) K/uL Neut # (Auto) (1.40-6.50) K/uL Lymph # (Auto) (1.20-3.40) K/uL [place] # (Auto) 0.70 H (0.11-0.59) K/uL PT 12.5 H (9.0-12.0) Seconds INR 1.2 H (0.9-1.1) POC Sodium (135-144) mmol/L Sodium 133 L (136-145) mmol/L POC Chloride (101-112) mmol/L POC Total CO2 (24-31) mmol/L POC BUN (7-18) mg/dl BUN (6-23) mg/dl BUN/Creatinine Ratio 29.3 H (10-20) Glucose 149 H (70-99(Fasting)) mg/dl POC Glucose 117 H (70-99) mg/dl POC Glucose (other) (70-99) mg/dl Magnesium 1.5 L (1.7-2.4) mg/dl Total Bilirubin 3.4 H (0.2-1.0) mg/dl AST 201 H (13-39) U/L ALT 200 H (7-52) U/L Alkaline Phosphatase 122 H (34-104) U/L Troponin I High Sens 63.6 H* 57.6 H* (0-20) pg/ml Total Protein 5.5 L (6.0-8.3) gm/dl Albumin 3.2 L (3.4-5.0) gm/dl Globulin 2.3 L (2.5-4.0) gm/dl Urine Appearance (Clear) Ur Specific [place] (1.000-1.030) Urine Protein (Negative) Urine Blood (Negative) Urine Nitrite (Negative) Urine Bilirubin (Negative) Urine Urobilinogen (Negative) Ur Leukocyte Esterase (Negative) Urine WBC (Auto) (0-5) /hpf Urine RBC (Auto) (0-2) /hpf Urine Bacteria (Auto) (None Seen) 10/31/23 10/31/23 Range/Units 12:14 16:43 RBC (4.70-6.10) M/uL Hgb (14.0-18.0) g/dl POC Hgb (14.0-18.0) g/dl Hct (42.0-52.0) % POC Hct (42-52) % RDW Std Deviation (36.4-46.3) fL Plt Count (130-400) K/uL Neut # (Auto) (1.40-6.50) K/uL Lymph # (Auto) (1.20-3.40) K/uL [place] # (Auto) (0.11-0.59) K/uL PT (9.0-12.0) Seconds INR (0.9-1.1) POC Sodium (135-144) mmol/L Sodium (136-145) mmol/L POC Chloride (101-112) mmol/L POC Total CO2 (24-31) mmol/L POC BUN (7-18) mg/dl BUN (6-23) mg/dl BUN/Creatinine Ratio (10-20) Glucose (70-99(Fasting)) mg/dl POC Glucose 193 H 131 H (70-99) mg/dl POC Glucose (other) (70-99) mg/dl Magnesium (1.7-2.4) mg/dl Total Bilirubin (0.2-1.0) mg/dl AST (13-39) U/L ALT (7-52) U/L Alkaline Phosphatase (34-104) U/L Troponin I High Sens (0-20) pg/ml Total Protein (6.0-8.3) gm/dl Albumin (3.4-5.0) gm/dl Globulin (2.5-4.0) gm/dl Urine Appearance (Clear) Ur Specific [place] (1.000-1.030) Urine Protein (Negative) Urine Blood (Negative) Urine Nitrite (Negative) Urine Bilirubin (Negative) Urine Urobilinogen (Negative) Ur Leukocyte Esterase (Negative) Urine WBC (Auto) (0-5) /hpf Urine RBC (Auto) (0-2) /hpf Urine Bacteria (Auto) (None Seen) Hospital Course (1) Acute UTI: (2) Atrial fibrillation with RVR: (3) Altered mental status: (4) Elevated troponin: (5) Diabetes: (6) Pacemaker: (7) Abnormal LFTs: (8) Chronic pancreatitis: (9) Painless jaundice: Plan UTI: UA positive, +increased urinary frequency Prior UCxs grew Pseudomonas x 3 and Enterococcus faecalis x 1 Urine cx + gm negative rods, sensitivities pending at time of dc Discharged with Levaquin x5 days AMS, Generalized Weakness - Resolved: Mild change in mentation prior to presentation - at baseline at time of discharge Head CT, CTA head and neck negative for acute changes Weakness likely secondary to dehydration Total Time Total Time Spent Total Time Spent (In Minutes): <30 Discharge Plan Discharge Items Patient Disposition: Home - Self-Care Reason For Visit: AMS, FEVER Discharge Diagnosis: generalized weakness, dehydration, UTI Activity: Resume your previous activity Non-emergency contact: Primary Care Provider Call non-emergency contact if: you have any medication questions, your symptoms worsen and you have a fever Follow-up/Referrals: Matty Colon MD [Primary Care Provider] - Diet: Heart Healthy Addtl Attending Provider Instructions: You were admitted due to weakness, which was likely caused by dehydration. You were also found to have a urinary tract infection. We are sending you home with a 5-day course of an antibiotic called Levaquin (Levofloxacin). Please take this medication twice daily for 5 days, starting in the morning. By tomorrow, we should know what antibiotics this infection is sensitive to. If there is a need to change antibiotics, I will give you a call to let you know. Pending Studies at Discharge: No Stand-Alone Forms: My [facility], Smoking Cessation Medications and DC Order Prescriptions: New levofloxacin 250 mg tablet 250 mg PO DAILY 5 Days Qty: 5 0RF Continued cholecalciferol (vitamin D3) 25 mcg (1,000 unit) tablet 25 mcg PO QAM Rx Instructions: Unable to verify this OTC medication at this date/time. Tradjenta 5 mg tablet 5 mg PO DAILY pravastatin 20 mg tablet 20 mg PO HS Rx Instructions: HS Entresto 24-26 mg tablet 1 tab PO BID dutasteride 0.5 mg capsule 0.5 mg PO DAILY Qty: 90 1RF multivitamin Tablet 1 tab PO QAM metformin 500 mg tablet 1,000 mg PO BID Eliquis 5 mg tablet 5 mg PO BID Rx Instructions: needs pm dose furosemide [Lasix] 20 mg Tablet 20 mg PO DIRECTED PRN (Reason: swelling) tamsulosin [Flomax] 0.4 mg Capsule 0.4 mg PO DAILY tramadol 50 mg tablet 50 - 100 mg PO Q6H MDD 400mg - daily PRN (Reason: Pain) metoprolol succinate 25 mg tablet extended release 24 hr 37.5 mg PO QPM Discharge Orders: Discharge Order (Routine); Ordered 10/31/23 Ordered By: Aiden Urena Admission Data Admit Date/Time: 10/30/23 20:23 Attending Provider: Elia Ennis Admit Provider: Emeka Boston Primary Care Provider: Matty Colon Other Providers: Emeka Boston Supervising Physician Co-Signing Physician Notes I personally examined the patient and verified all aguirre points of history and exam, discussed case, and agree with decision making with Dr Urena Feeling better, feels he is back to baseline. He would very much like to go home. Extensive discussion on hydration, discussed urinary symptomshe does have a degree of frequency (in spite of being dehydrated), but no dysuria. Vitals noted, in general he is awake and alert pleasant no distress. HEENT normocephalic atraumatic mucous membranes moist. Breathing unlabored no accessory muscle use good effort. Skin without rashes pallor or icterus. Neuro without focal deficits. Labs and diagnostics noted. AMS - metabolic encephalopathy POA - seems mostly due to dehydration but also probably a bit due to UTI dehydration - improved. discussed fluid intake goals probable UTI - GNR on Cx, frequency despite dehydration - prior pseudomonas. not septic; quite stable for home - but Cx still pending final ID&S --> discussed staying into tomorrow vs home on presumptive/empiric Rx with possiblity we may need to change abx tomorrow or small chance of needing to come back to hospital - they are OK w this. due to prior pseudomonas - home on levaquin for now, follow Cx - if able to narrow tomorrow can call in new Rx, if need to adjust abx tomorrow can call in adjusted Rx, small chance of MDR pathogen - they understand (asked multiple times to make sure they would be OK w presumptive course of treatment to get him home tonight, but may need to adjust tomorrow) demand ischemia - mild - due to all of above. no further w/u appears warranted Resident Activity Tracking Resident Involvement: Resident Care Provided Care Provided: Adult Hospital Medicine
[2023-10-31] MEDS ORDERED: CIPROFLOXACIN 500 MG TAB PO STA (17:16)
--- NOTE | 2023-10-31 18:00 | Billing Data ---
Date of Service October 31, 2023 Coding Level of Care Code 52841 IN/OBS DISCH 30 MIN/LESS
[2023-10-31] MEDS: levoFLOXacin 250 MG TABLET PO ONE (18:17)
[2023-10-31] MEDS ORDERED: METOPROLOL SUCC 25MG EXT REL TAB PO SCH ×2 (21:00)
[2023-10-31] MEDS ORDERED: PRAVASTATIN SOD 20 MG TAB PO SCH (21:00)
--- NOTE | 2023-10-31 22:24 | Electrocardiogram Report ---
Test Reason : Blood Pressure : / mmHG Vent. Rate : 111 BPM Atrial Rate : 000 BPM P-R Int : 000 ms QRS Dur : 138 ms QT Int : 290 ms P-R-T Axes : 000 -34 129 degrees QTc Int : 394 ms Atrial fibrillation with rapid ventricular response Left axis deviation Left bundle branch block Abnormal ECG When compared with ECG of 09-AUG-2022 06:26, Vent. rate has increased BY 49 BPM QRS axis Shifted left Confirmed by Kennedy Aragon ([id number]) on 10/31/2023 10:24:19 PM Referred By: REFERRED SELF Confirmed By:Kennedy Aragon
[2023-11-01 21:04] LABS: A calco-baum cmplx NotReported Not Detected (NotDetected); Bact fragilis Not Reported Not Detected (NotDetected); Blood Culture Id Panel See PCR Comment (NotDetected); C auris Not Reported Not Detected (NotDetected); Calbicans Not Reported Not Detected (NotDetected); Candida glabrata Not Reported Not Detected (NotDetected); Candida krusei Not Reported Not Detected (NotDetected); Cneoformans/gatti Not Reported Not Detected (NotDetected); Cparapsilosis Not Reported Not Detected (NotDetected); E cloacae compx Not Reported Not Detected (NotDetected); Efaecalis Not Reported Not Detected (NotDetected); Efaecium Not Reported Not Detected (NotDetected); Enterobacterales Not Reported Not Detected (NotDetected); Escherichia coli Not Reported Not Detected (NotDetected); H influenzae Not Reported Not Detected (NotDetected); K aerogenes Not Reported Not Detected (NotDetected); Koxytoca Not Reported Not Detected (NotDetected); Kpneumoniae grp Not Reported Not Detected (NotDetected); Lmonocyt Not Reported Not Detected (NotDetected); N meningitidis Not Reported Not Detected (NotDetected); P aeruginosa Not Reported Not Detected (NotDetected); Proteus spp Not Reported Not Detected (NotDetected); Salmonella spp Not Reported Not Detected (NotDetected); Staph lugdunensis Not Reported Not Detected (NotDetected); Staph spp. Not Reported DETECTED (NotDetected); Staphaureus Not Reported Not Detected (NotDetected); Staphepi Not Reported Not Detected (NotDetected); Stenmaltophilia Not Reported Not Detected (NotDetected); Strep agal(GrpB) Not Reported Not Detected (NotDetected); Strep pneum Not Reported Not Detected (NotDetected); Strep pyog (GrpA) Not Reported Not Detected (NotDetected); Strep spp Not Reported Not Detected (NotDetected)
[2023-11-01 21:26] LABS: Staphylococcus spp. DETECTED (NotDetected)
== END 2023-10-31 19:17 | disposition home or self-care (01) | DRG 871 ==
LOC: ED 17:43 → EDINP 20:23 → SUATTDRO 20:23 → EDINP 23:53 → 4W 10-31 10:34

== ENCOUNTER 2024-05-07 20:13 | Inpatient (IN) ==
--- OUTSIDE RECORDS SUMMARY | 2024-05-07 20:43 | External Medical Summary | Continuity of Care Document ---
Author Name Unknown Organization [address] Address [address] [place] [id number] Care Team Providers Care Solids Control Technician Name Role Phone Isaiah Bailee Bailey Primary Care Physician [phone] [id number] Date(s): 05/04/24 - 05/04/[address] [place] [id number] [facility], [address] [place] [address] [phone] Encounter Diagnosis Pancreatic adenocarcinoma(Discharge Diagnosis) - 05/04/24 Type 2 diabetes mellitus with diabetic neuropathy, unspecified(Discharge Diagnosis) - 05/04/24 Afib(Discharge Diagnosis) - 05/04/24 Pressure ulcer(Discharge Diagnosis) - 05/04/24 Discharge Disposition: Home or Self Care Attending Physician: LEVAR Cortes [place] Marie Referring Physician: LEVAR Cortes [place] Allergies, Adverse Reactions, Alerts Substance Criticality Severity Reaction Reaction Severity Status ciprofloxacin Dysequilbrium Ac tive Assessment and Plan Extracted from: Title:Office Visit Note - APSO Author:AMARIS Cortes NP, [place]y Marie Date:05/04/24 1.Pancreatic adenocarcinom a Problem isChronic - clinically stable though not at goal Goal:maintenance Data:_ Plan: continue to follow with palliative 2.Type 2 diabetes mellitus with diabetic neuropathy, unspecified Problem isChronic - stable/controlled Goal:maintenance Data:_ Plan:Hold Lantus for now. Continue to check morning blood sugars. Will check in to reevaluate. 3.Afib Problem isChronic - stable/controlled Goal:maintenance Data:_ Plan:Continue current regimen. 4.Pressure ulcer Problem isChronic - not controlled Goal:maintenance Data:_ Plan:Continue plan of offloading. Change dressing frequently. Will consulthome nursing.Order for pressure relieving cushion Patient verbalizes understanding and agrees with analilia well asreturn precautions. Immunizations Given and Recorded Vaccine Date Status [...] q6h, Disp# 8.5 g, Refills: 3, [id number] Start Date: 05/02/21 Status: Ordered BD needle Ultra-Fine Pen 29G x 0.5" Start: 01/16/24 3:24:00 PM EDT, See Instructions, Disp# 100 each, Use as directed with insulin. Max__1__/day. Use new pen needle with each injection., Pharmacy: [id number] Start Date: 01/16/24 Status: Ordered cyclobenzaprine 5 mg oral tablet Start: 01/13/24 11:29:00 AM EDT, 1 tab, PO, qhs, Disp# 30 tab, Refills: 3, PRN: NEEDED FOR SPASM, Pharmacy: [facility]ORE [id number] Start Date: 01/13/24 Status: Ordered dutasteride 0.5 mg oral capsule Start: 07/20/20 11:13:00 AM EDT, 1 cap, PO, Daily, Disp# 30 cap, Refills: 3, Pharmacy: [facility]/pharmacy #[id number] Start Date: 07/20/20 Status: Ordered Eliquis 5 mg oral tablet Start: 02/20/24 11:19:00 AM EST, 1 tab, PO, bid, Disp# 60 tab, Refills: 11, Pharmacy: [facility] STORE [id number] Start Date: 02/20/24 Status: Ordered Flomax 0.4 mg oral capsule Start: 11/15/20 8:06:00 AM EDT, 1 cap, PO, qAM, Disp# 90 cap, Refills: 3, Pharmacy: [facility]/pharmacy #[id number] Start Date: 11/15/20 Status: Ordered Flonase 50 mcg/inh nasal spray Start: 03/27/23 12:45:00 PM EST, 1 spray, each nostril, Daily, Disp# 16 g, Refills: 3, Pharmacy: [facility]/pharmacy #[id number] Start Date: 03/27/23 Status: Ordered furosemide 20 mg oral tablet Start: 12/26/21 8:58:00 AM EDT, See Instructions, Disp# 90 tab, Refills: 4, as needed for weight gain 2 lbs in 24 hours or 5 lbs in a week, Pharmacy: [id number] Start Date: 12/26/21 Status: Ordered inhaler spacer Start: 10/14/20 11:17:00 AM EDT, See Instructions, Disp# 1 each, dispense 1, Pharmacy: [facility]/pharmacy #[id number] Start Date: 10/14/20 Status: Ordered Lantus Solostar Pen 100 units/mL subcutaneous solution Start: 01/16/24 3:00:00 PM EDT, 5 unit =, subQ, Daily, Disp# 10 mL, Refills: 2, Pharmacy: [facility] [id number] Start Date: 01/16/24 Stop Date: 04/15/24 Status: Ordered metFORMIN 500 mg oral tablet Start: 12/09/23 9:10:00 AM EDT, See Instructions, Disp# 360 tab, Refills: 1, TAKE 2 TABLETS BY MOUTH WITH NOON MEAL AND WITH EVENING MEAL, Pharmacy: [id number] Start Date: 12/09/23 Status: Ordered metoprolol succinate 25 mg oral tablet, extended release Start: 07/24/23 9:44:00 AM EDT, 1.5 tab, PO, Daily, Disp# 135 tab, Refills: 3, Pharmacy: [facility]/pharmacy #[id number] Start Date: 07/24/23 Status: Ordered multivitamin Start: 07/27/21 8:00:00 AM EDT, 1 tab, PO, Daily Start Date: 07/27/21 Status: Ordered mupirocin 2% topical ointment Start: 04/21/24 2:57:00 PM EST, 1 appl, topical, tid, Disp# 22 g, Pharmacy: [facility]/pharmacy #[id number] Start Date: 04/21/24 Stop Date: 04/28/24 Status: Ordered One Touch Finepoint (25G) Lancets Start: 06/26/17 8:54:00 AM EDT, See Instructions, Disp# 1 box, Refills: 6, test daily, Dx : E11.9, Pharmacy: [facility]/pharmacy #[id number] Start Date: 06/26/17 Status: Ordered One Touch Ultra Test Strips 100 ct Start: 10/27/19 4:37:00 PM EDT, See Instructions, Disp# 100 each, Refills: 6, test daily, Dx: E11.9,Pharmacy: [facility] #[id number] Start Date: 10/27/19 Status: Ordered One Touch UltraMini Glucose Monitor Start: 06/26/17 8:52:00 AM EDT, See Instructions, Disp# 1 unit, Refills: 0, test daily, Dx : E11.9, Pharmacy: [facility]/pharmacy #[id number] Start Date: 06/26/17 Status: Ordered pravastatin 20 mg oral tablet Start: 10/28/23 5:27:00 PM EDT, See Instructions, Disp# 90 tab, Refills: 3, TAKE 1 TABLET BY MOUTH EVERYDAY AT BEDTIME, Pharmacy: [facility]/pharmacy #[id number] Start Date: 10/28/23 Status: Ordered Tradjenta 5 mg oral tablet Start: 09/19/23 8:33:00 AM EDT, See Instructions, Disp# 90 tab, Refills: 3, TAKE 1 TABLET BY MOUTH EVERY DAY, Pharmacy: [facility]/pharmacy #[id number] Start Date: 09/19/23 Status: Ordered traMADol 50 mg oral tablet Start: 05/05/24 9:20:00 AM EST, See Instructions, Disp# 120 tab, Refills: 0, 1-2 tab PO q6h as neededfor pain not to exceed 400 mg/day, PRN: as needed for pain, Pharmacy: [facility]/pharmacy #[id number] Start Date: 05/05/24 Status: Ordered Vitamin D3 Start: 07/27/21 8:00:00 AM EDT Start Date: 07/27/21 Status: Ordered Problem List Condition Confirmation Course Effective Dates Status H ealth Status Informant Pancreatic adenocarcinoma Confirmed Active Pacemaker Confirmed Active Diastolic CHF Confirmed Active [...] Effective Dates Health Status Clinical Service Informant Pancreatic adenocarcinoma Discharge Diagnosis 05/04/24 Non-Specified Pressure ulcer Discharge Diagnosis 05/04/24 Non-Specified Type 2 diabetes mellitus with diabetic neuropathy, unspecified Discharge Diagnosis 05/04/24 Non-Specified Afib Discharge Diagnosis 05/04/24 Non-Specified Procedures Procedure Date Related Diagnosis Body [...] Most recent to oldest [Reference Range]: 1 Heart Rate 76 bpm (05/04/24 1:28 PM) Respiratory Rate 18 br/min (05/04/24 1:28 PM) Blood Pressure 126/86mmHg (05/04/24 1:28 PM) Social History Social History Type Response Smoking Status Never smoked cigaret lisandra Sex Male Sex Representation Male (finding) FCM Outpt Note * LEVAR Cortes, Pinky Damon: PERFORM, MODIFY Event Display: FCM Outpt Note Authored Date: [id number] Assessment/Plan 1.Pancreatic adenocarcinoma Problem isChronic - clinically stable though not at goal Goal:maintenance Data:_ Plan: continue to follow with palliative 2.Type 2 diabetes mellitus with diabetic neuropathy, unspecified Problem isChronic - stable/controlled Goal:maintenance Data:_ Plan:Hold Lantus for now. Continue to check morning blood sugars. Will check in to reevaluate. 3.Afib Problem isChronic - stable/controlled Goal:maintenance Data:_ Plan:Continue current regimen. 4.Pressure ulcer Problem isChronic - not controlled Goal:maintenance Data:_ Plan:Continue plan of offloading. Change dressing frequently. Will consulthome nursing.Order for pressure relieving cushion Patient verbalizes understanding and agrees with analilia well asreturn precautions. Attestation I attest that I have spent35 minutes in care and coordination of this patient. This is inclusive of: previsit: chart review and preparation |[id number]: obtaining HPI, PE, discussing Assessment and Plan, and other pertinent discussions/decisionsr/t care | postvisit: coordination of care, orders, and documentation/paperwork The abovetimedoes not include any procedure time. Chief Complaint wound eval and DM f/u History of Present Illness Home visit today for reevaluation of wound. held insulin this morning. Blood sugar this morning was 140. He did have 1 episode of hypoglycemia. Review of Systems A total of 10 systems were reviewed. Pertinent positive and negatives addressed in HPI, all other findings are negative. Physical Exam Vitals & Measurements HR:76(Monitored) RR:18 BP:126/86 SpO2:95% Constitutional: Alert and oriented, No acute distress, tired-appearing, flat mood and affect Respiratory: Lung sounds are clear, equal chest rise and fall with breathing, no pursed lip breathing Cardiovascular: Heart sounds regular rate and rhythm, without gallop or murmur, no edema HEENT: Normocephalic, atraumatic, conjunctiva are clear Musculoskeletal: generalizedweakness, normal gait, + atrophy or abnormal muscle tone Neurological: CN 2-12 grossly intact Skin: Warm,pale,large stage I pressure ulcerover right hip Problem List/Past Medical History Ongoing Afib (atherosclerosis) Diastolic CHF Hypertension Incomplete bladder emptying Male urinary stress incontinence Osteoarthritis of knee Pacemaker Pancreatic adenocarcinoma Persistent proteinuria Prostate cancer S/P TAVR (transcatheter [...] See Instructions inhalation accessory(inhaler spacer), See Instructions insulin glargine(Lantus Solostar Pen 100 units/mL subcutaneous solution), 5 unit, subQ, Daily, 2 refills linagliptin(Tradjenta 5 mg oral tablet), See Instructions, 3 refills metFORMIN(metFORMIN 500 mg oral tablet), See Instructions metoprolol(metoprolol succinate 25 mg oral tablet, extended release), 37.5 mg= 1.5 tab, PO, Daily, 3 refills multivitamin, 1 tab, PO, Daily mupirocin topical(mupirocin 2% topical ointment), 1 appl, topical, tid pravastatin(pravastatin 20 mg oral tablet), See Instructions, 3 refills syringe needles(BD needle Ultra-Fine Pen 29G x 0.5"), See Instructions tamSULOsin(Flomax 0.4 mg oral capsule), 0.4 mg= 1 cap, PO, qAM, 3 refills traMADol(traMADol 50 mg oral tablet), See Instructions, PRN Allergies ciprofloxacinDysequilbrium Social History Smoking Status Never smoked cigarettes Alcohol - Denies Alcohol Use - Comments: AUDIT-C score = 0 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 [...] Medicare Annual Wellness Visit due11/15/21and every 1year Adult Influenza Vaccine due09/30/23and every 1year Due Adult COVID-19 Vaccination due05/04/24Unknown Frequency Shingles Vaccine due05/04/24One-time only Due In Future Adult Social Determinants of Health Screening not due until09/18/24and every 366day Diabetes Management A1c not due until12/20/24and every 366day Diabetic Eye Exam not due until03/26/25and every 731day Body Mass Index not due until04/22/25and every 366day Satisfied(in the past 1 year) Satisfied Body Mass Index on02/04/24.Satisfied by DUSTIN Kelley Lori Diabetes Management A1c on12/20/23.Satisfied by Contributor_system, [email or web address] Diabetes Nephropathy Management on12/20/23.Satisfied by Contributor_system, [email or web address] Electronic Signature on File Electronically Reviewed/Signed by: LEVAR Tidwell Author Signature Dt/Tm:05/04/2024 01:39 PM Department of Family Medicine Electronically Reviewed/Signed by: LEVAR Tidwell Signature Dt/Tm: 05/04/2024 01:40 PM Department of Family Medicine XU Patient Care team information Care Team Personnel Name: Virginia Dougherty Christine A Position: Pharmacist Member Role: Pharmacy - Lifetime Name: SHREYA Green Lynn Position: Physician Account Executive Software Sales Exempt - Vasc Surg Member Role: Lifetime Relationship Address: [address] [place] [address] [place] Name: MD Luz, Amada Position: Physician - Card Heart Failure Member Role: Lifetime Relationship Address: [address] [place] [address] [place] Name: MD Isaiah, Bailee Bailey Position: Physician Member Role: Primary Care Provider Address: [address] [facility] [address] [place] [address] [place] Name: Virginia Maddox Kyle Position: Pharmacist Member Role: Pharmacy - Lifetime Address: [address] [place] [address] [place] Care Team Related Persons Name: GUNNAR MTZ Name: PARI CARRASCO
--- OUTSIDE RECORDS SUMMARY | 2024-05-07 20:43 | External Medical Summary | Summary of Care ---
Author Name Unknown Organization [facility] Address [address] [place] [address] Phone [phone] Care Team Providers Care Straightening Machine Operator Name Role Phone Bailee Colon MD Primary Care Provi caroline Reason for Visit * Reason Onset Date Comments Advice 05/07/2024 Encounter Details Date Type Department Care Team (Late st Contact Info) Description 05/07/2024 Telephone Palliative Medicine, [facility] [address] Floor [place], [place] [id number] Services, Scheduling [address] [place] [address] Advice Allergies Active Allergy Reactions Criticality Noted Date Comments Ciprofloxacin 09/24/2023 documented as of this encounter (statuses as of 05/07/2024) Medications linaGLIPtin 5 MG Oral Tablet (Tradjenta) Take [...] bedtime. Active Dutasteride 0.5 MG Oral Capsule (Avodart)Indicat ions:BPH with obstruction/lowe r urinary tract symptoms Take 1 Capsule by mouth in the morning. 90 Capsule 3 06/18/2023 Active Tamsulosin HCl 0.4 MG Oral Capsule (Flomax)Indicati ons:BPH with obstruction/lowe r urinary tract symptoms Take 1 Capsule by mouth in the morning. 90 Capsule 3 10/14/2023 Active Amoxicillin-Pot Clavulanate 875-125 MG Oral Tablet (Augmentin) Take 1 Tablet by mouth in the morning and 1 Tablet before bedtime. Active Cholecalciferol 25 MCG (1000 UT) Oral Tablet Take 1 Tablet by mouth in the morning. 08/02/2022 Active Cyclobenzaprine HCl 5 MG Oral Tablet (Flexeril) Take 1 Tablet by mouth at bedtime. 03/08/2023 Active Metoprolol Succinate ER 25 MG Oral Tablet Extended Release 24 Hour (toPROL XL) Take 0.5 Tablets by mouth in the morning. 11/22/2023 Active Ondansetron HCl 4 MG Oral Tablet (Zofran)Indicati ons:Nausea and vomiting, unspecified vomiting type Take 1 Tablet by mouth every 6 hours as needed for Nausea. 20 Tablet 05/07/2024 Active documented as of this encounter (statuses as of 05/07/2024) Active Problems Problem Noted Date Diagnosed Date Pancreatic adenocarcinoma 10/04/2023 Cancer Staging:Clinical stage from 10/04/2023:Stage IB(cT2, cN0, cM0) - Signed by Domi Bains MD on 10/07/2023 Elevated prostate specific antigen (PSA) 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 Dermatitis 04/03/2006 documented as of this encounter (statuses as of 05/07/2024) Social History Tobacco Use Types Packs/Day Years [...] ages 0-17 years) Not on file 09/26/2023 Food Insecurity Answer Date Recorded Within the past 12 months, y ou worried that your food would run out before you got the money to buy more. Never true 09/26/19 24 Within the past 12 months, t he food you bought just didn't last and you didn't have money to get more. Never true 09/26/2023 Do you need food for this week? No 09/26/2023 Sex and Gender Information Value Date Recorded Sex Assigned at Not on file Legal Sex Male 7:11 AM EST Gender Identity Not on file Sexual Orientation Not on file Occupation Industry Job Start Date Job End Date retired Not on file Not on file Not on file documented as of this encounter Miscellaneous Notes * Telephone Encounter - Autumn Palma PA-C - 05/07/2024 1:19 PM EST Sent * Telephone Encounter - Blanca Fraire LPN - 05/07/2024 12:36 PM EST Called and spoke with She states it has been coming and going He will have a few good days, and then a few bad days Does not want to go to the ER at this time Not quite ready for hospice is asking if we can try the anti-nausea medication If no improvement or any worsening symptoms in the next day or so, she would try and convince him to go to the ER or discuss hospice further has to call into PCP office tomorrow to update them on his blood sugars, so she will give amos update on this as well tomorrow Pharmacy pended to send med in to Pharmacy will call when script is ready * Telephone Encounter - Autumn Palma PA-C - 05/07/2024 12:16 PM EST If this has been going on for multiple days/weeks, then he likely should go to the ER for evaluation especially with history of biliary obstruction- could be that again. He could be very dehydrated. If he doesn't wish to go to the ER, then I can send in some anti-nausea medication for him if he prefers to focus on comfort and NOT go back to the hospital. We likely should consider having hospice go in for extra support, too if they don't wish to go to the ER for workup/treatment. * Telephone Encounter - Blanca Fraire LPN - 05/07/2024 10:54 AM EST Called and spoke with Lisa The past few weeks, they've been dealing with flu symptoms and a GI bug However, his symptoms have continued Still having issues with stomach pain and vomiting His vomit is mostly bile He doesn't eat much to begin with Isn't vomiting every single day Did vomit twice at lunch yesterday and then before bed last night He will get nauseous and realize he is going to vomit before he does He did have some stomach pain/discomfort most of the night last night and still this morning has been giving him pepto that hasn't helped much The pain is not unbearable, but "just there" per It does seem to be more affected by acidic foods Denies any fevers or any other symptoms Denies any abdominal distention His bowels are moving normally Urinating normally His coloring is normal per She is not sure if this has to do with his cancer, or just him having a harder time getting over this than everyone else Dr. Heather Cortes, who is in same office as PCP, made a home visit this past Saturday However, was having issues and ended up getting sent to hospital so not too much time was spent with patient Please advise * Telephone Encounter - Clementine Kaplan OSA - 05/07/2024 10:51 AM EST Pts Lisa calling in asking for provider to give them a call as the pt is not feeling very well and asking for some advice on situations that have come arisen, please advise. documented in this encounter Plan of Treatment Upcoming Encounters Date Type Department Care Team (Late st Contact Info) Description 06/30/2024 11:45 AM EDT Office Visit Urology, [facility] [address] [facility] [place] [address] Berny [place] MD [address] [place] [address] Health Maintenance Due Date Last Done Comments Depression Screening 1952 DTap/Tdap Vaccines (1 - Tdap) 09/03/1959 Zoster Vaccines (1 of 2) 1990 COVID-19 Vaccine ( season) 2023 04/05/2021, 11/08/2020, 06/08/2020, Additional history exists Influenza Vaccine (FLU shot) (#1) 2023 01/31/2023, 02/13/2022, 01/13/2021 Pneumococcal Vaccine: 50+ Years Completed 03/01/2014, 04/29/2012 HPV (Gardasil) Vaccine Aged Out No lo nger eligible based on patient's age to complete this topic Hepatitis B Vaccine Aged Out No longe r eligible based on patient's age to complete this topic MENINGOCOCCAL (MENACTRA/MENVEO) Aged Out No longer eligible based on patient's age to complete this topic documented as of this encounter Medical Devices Implanted Type Area Medical Lab Technologist Device Identifier Shelf Expiration Date Model / Serial / Lot Hanarostent Non-Cover 10dm 6cm - [id number] Implanted:Qty: 1 on 01/09/2024 by Patricia [place] MD at OR [facility] [employer] [id number] 07/07/2024 [facility]-10-060 -180 / / [id number] Balloon Rx Hurcan 6-4x5.8 4592 - [id number] Implanted:Qty: 1 on 01/09/2024 by Patricia [place] MD at OR [facility] [employer] : ENDOSCOPY [id number] 07/10/2025 [id number] / / [id number] documented as of this encounter Visit Diagnoses Diagnosis Nausea and vomiting, unspecified vomiting type- Primary documented in this encounter Advance Directives Documents on File Type Date Recorded Patient [place] Expl anation POL 10/17/2023 signed on 10/15 POLST Care Teams Straightening Machine Operator Relationship Specialty Start Date End Date Bailee Colon MD [address] [facility] [address] [place] [address] [place] [address], [place] [address] PCP - General Family Medicine 06/27/23 documented as of this encounter
--- OUTSIDE RECORDS SUMMARY | 2024-05-07 20:44 | External Medical Summary | Summary of Care ---
Author Name Unknown Organization [facility] Address [address] [place] [address] Phone [phone] Care Team Providers Care Sander Wooden Pencils Name Role Phone Bailee Colon MD Primary Care Provi caroline Reason for Visit * Reason Onset Date Comments Appointment 04/21/2024 Encounter Details Date Type Department Care Team (Late st Contact Info) Description 04/21/2024 Telephone [facility] [place] [facility] [place] [address] Luisito Garrido, RITA [address] [place] [address] Appointment (///) Allergies Active Allergy Reactions Criticality Noted Date Comments Ciprofloxacin 09/24/2023 documented as of this encounter (statuses as of 04/21/2024) Medications linaGLIPtin 5 MG Oral Tablet (Tradjenta) [...] by mouth in the morning. 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 Dermatitis 04/03/2006 documented as of this encounter (statuses as of 04/21/2024) Social History Tobacco Use Types Packs/Day Years [...] encounter Miscellaneous Notes * Telephone Encounter - Luisito Garrido OSA - 04/21/2024 2:53 PM EST 04/21[facility] Looking at tanesha 04/24 documented in this encounter Plan of Treatment Upcoming Encounters Date Type Department Care Team (Late st Contact Info) Description 06/30/2024 11:45 AM EDT Office Visit Urology, [facility] [address] [facility] [place] [address] Berny Wakefield MD [address] [place] [phone] Health Maintenance Due Date Last Done Comments [...] this encounter Medical Devices Implanted Type Area Furnace Mechanic Helper Device Identifier Shelf Expiration Date Model / Serial / Lot Raarostent Non-Cover 10dm 6cm - [id number] Implanted:Qty: 1 on 01/09/2024 by Patricia [place] MD at OR [facility] [employer] [id number] 07/07/2024 [facility]-10-060 -180 / / [id number] Balloon Rx Hurcan 6-4x5.8 4592 - [id number] Implanted:Qty: 1 on 01/09/2024 by Patricia [place] MD at OR [facility] [employer] ENDOSCOPY [id number] 07/10/2025 [id number] / / [id number] documented as of this encounter Advance Directives Documents on File Type Date Recorded Patient Order Selector Expl anation POLST 10/17/2023 signed on 10/15 POLST Care Teams Sander Wooden Pencils Relationship Specialty Start Date End Date Bailee Colon MD [address] [place] [address] PCP - General Family Medicine 06/27/23 documented as of this encounter
--- OUTSIDE RECORDS SUMMARY | 2024-05-07 20:44 | External Medical Summary | Summary of Care ---
Author Name Unknown Organization [facility] Address [address] [place] [address] Phone [phone] Care Team Providers Care Air Brake Operator Name Role Phone Bailee Colon MD Primary Care Provi caroline Reason for Visit * Reason Onset Date Comments Appointment 04/22/2024 Encounter Details Date Type Department Care Team (Late st Contact Info) Description 04/22/2024 Telephone [facility] [place] [address] [place] [address] Luisito Garrido, RITA [address] [place] [address] Appointment (//) Allergies Active Allergy Reactions Criticality Noted Date Comments Ciprofloxacin 09/24/2023 documented as of this encounter (statuses as of 04/22/2024) Medications linaGLIPtin 5 MG Oral Tablet (Tradjenta) [...] as of this encounter (statuses as of 04/22/2024) Active Problems Problem Noted Date Diagnosed Date Pancreatic adenocarcinoma 10/04/2023 Cancer Staging:Clinical stage from 10/04/2023:Stage IB(cT2, cN0, cM0) - Signed by Domi Bains MD on 10/07/2023 Elevated prostate specific antigen (PSA) 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 Dermatitis 04/03/2006 documented as of this encounter (statuses as of 04/22/2024) Social History Tobacco Use Types Packs/Day Years [...] Telephone Encounter - Luisito Garrido OSA - 04/22/2024 8:19 AM EST 04/22-[facility] Looking at tanesha 04/24 documented in this encounter Plan of Treatment Upcoming Encounters Date Type Department Care Team (Late st Contact Info) Description 06/30/2024 11:45 AM EDT Office Visit Urology, [facility] [address] [facility] [place] [address] Berny Wakefield MD [address] [place] [phone] Health Maintenance Due Date Last Done Comments [...] this encounter Medical Devices Implanted Type Area Crab Backer Device Identifier Shelf Expiration Date Model / Serial / Lot Kailashstent Non-Cover 10dm 6cm - [id number] Implanted:Qty: 1 on 01/09/2024 by Patricia Grace MD at OR [facility] [employer] [id number] 07/07/2024 SHS-10-060 -180 / / [id number] Balloon Rx Hurcan 6-4x5.8 4592 - [id number] Implanted:Qty: 1 on 01/09/2024 by Patricia Grace MD at OR [facility] [employer] : ENDOSCOPY [id number] 07/10/2025 [id number] / / [id number] documented as of this encounter Advance Directives Documents on File Type Date Recorded Patient Distribution Coordinator Expl anation POLST 10/17/2023 signed on 10/15 POLST Care Teams Air Brake Operator Relationship Specialty Start Date End Date Bailee Colon MD 6 [facility] [place] [address] PCP - General Family Medicine 06/27/23 documented as of this encounter
--- OUTSIDE RECORDS SUMMARY | 2024-05-07 20:44 | External Medical Summary | Summary of Care ---
Author Name Unknown Organization [facility] Address [address] [place] [address] Phone [phone] Care Team Providers Care Pharmacy Student Name Role Phone Bailee Colon MD Primary Care Provi caroline Encounter Details Date Type Department Care Team (Late st Contact Info) Description 04/02/2024 Population Health External Data Unspecified Department Allergies Active Allergy Reactions Criticality Noted Date Comments Ciprofloxacin 09/24/2023 documented as of this encounter (statuses as of 04/07/2024) Medications linaGLIPtin 5 MG Oral Tablet (Tradjenta) [...] by mouth in the morning. 11/22/2023 Active Gabapentin 300 MG Oral Capsule (Neurontin)Indic ations:Acute bilateral thoracic back pain Take 1 Capsule by mouth in the morning and 1 Capsule before bedtime. 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 Dermatitis 04/03/2006 documented as of this encounter (statuses as of 04/07/2024) Social History Tobacco Use Types Packs/Day Years [...] Care Team (Late st Contact Info) Description 04/13/2024 9:00 AM EST Scheduled Telephone Palliative Medicine, [address] [place] [address] [place], Nurse Palliative Medicine [address] [place] [address] 06/30/2024 11:45 AM EDT Office Visit Urology, [facility] [address] [place] [address] Berny Wakefield MD [address] [place] [address] Health Maintenance Due Date Last Done Comments [...] this encounter Medical Devices Implanted Type Area Education Research Analyst Device Identifier Shelf Expiration Date Model / Serial / Lot Hanarostent Non-Cover 10dm 6cm - [id number] Implanted:Qty: 1 on 01/09/2024 by Patricia Grace MD at OR [facility] [place] [employer] [id number] 07/07/2024 SHS-10-060 -180 / / [id number] Balloon Rx Hurcan 6-4x5.8 4592 - [id number] Implanted:Qty: 1 on 01/09/2024 by Patricia Grace MD at OR [facility] [place] [employer] ENDOSCOPY [id number] 07/10/2025 [id number] / / [id number] documented as of this encounter Advance Directives Documents on File Type Date Recorded Patient Conveyor Installer Expl anation POLST 10/17/2023 signed on 10/15 POLST Care Teams Pharmacy Student Relationship Specialty Start Date End Date Bailee Colon MD [address] [place] [address] PCP - General Family Medicine 06/27/23 documented as of this encounter
--- OUTSIDE RECORDS SUMMARY | 2024-05-07 20:44 | External Medical Summary | Summary of Care ---
Author Name Unknown Organization [facility] Address [address] [place] [address] Phone [phone] Care Team Providers Care Safety Deposit Supervisor Name Role Phone Bailee Colon MD Primary Care Provi caroline Encounter Details Date Type Department Care Team (Late st Contact Info) Description 04/20/2024 Population Health External Data Unspecified Department Allergies Active Allergy Reactions Criticality Noted Date Comments Ciprofloxacin 09/24/2023 documented as of this encounter (statuses as of 04/20/2024) Medications linaGLIPtin 5 MG Oral Tablet (Tradjenta) [...] as of this encounter (statuses as of 04/20/2024) Active Problems Problem Noted Date Diagnosed Date Pancreatic adenocarcinoma 10/04/2023 Cancer Staging:Clinical stage from 10/04/2023:Stage IB(cT2, cN0, cM0) - Signed by Domi Bains MD on 10/07/2023 Elevated prostate specific antigen (PSA) 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 Dermatitis 04/03/2006 documented as of this encounter (statuses as of 04/20/2024) Social History Tobacco Use Types Packs/Day Years [...] 06/30/2024 11:45 AM EDT Office Visit Urology, [facility] 132 [facility] [place] [phone] Berny Wakefield MD [address] [place] [address] Health Maintenance Due Date Last Done Comments [...] this encounter Medical Devices Implanted Type Area Senior Assistant Manager Device Identifier Shelf Expiration Date Model / Serial / Lot Raarostent Non-Cover 10dm 6cm - [id number] Implanted:Qty: 1 on 01/09/2024 by Patricia Grace MD at OR [facility] [employer] [id number] 07/07/2024 [facility]-10-060 -180 / / [id number] Balloon Rx Hurcan 6-4x5.8 4592 - [id number] Implanted:Qty: 1 on 01/09/2024 by Patricia Grace MD at OR [facility] [employer] ENDOSCOPY [id number] 07/10/2025 [id number] / / [id number] documented as of this encounter Advance Directives Documents on File Type Date Recorded Patient Tech Ed Teacher Expl anation POLST 10/17/2023 signed on 10/15 POLST Care Teams Safety Deposit Supervisor Relationship Specialty Start Date End Date Bailee Colon MD [address] [place] [address] PCP - General Family Medicine 06/27/23 documented as of this encounter
--- OUTSIDE RECORDS SUMMARY | 2024-05-07 20:44 | External Medical Summary | Summary of Care ---
Author Name Unknown Organization [facility] Address [address] [place] [address] Phone [phone] Care Team Providers Care Oracle Scm Consultant Name Role Phone Bailee Colon MD Primary Care Provi caroline Reason for Visit * Reason Onset Date Comments Palliative Care Follow-up 04/13/2024 Encounter Details Date Type Department Care Team (Late st Contact Info) Description 04/13/2024 9:00 AM EST Scheduled Telephone Palliative Medicine, [address] [place], [place] [phone] [place], Nurse Palliative Medicine [address] [address] Allergies Active Allergy Reactions Criticality Noted Date Comments Ciprofloxacin 09/24/2023 documented as of this encounter (statuses as of 04/13/2024) Medications linaGLIPtin 5 MG Oral Tablet (Tradjenta) [...] mouth in the morning. 90 Capsule 3 4 Active Tamsulosin HCl 0.4 MG Oral Capsule (Flomax)Indicati ons:BPH with obstruction/lowe r urinary tract symptoms Take 1 Capsule by mouth in the morning. 90 Capsule 3 4 Active Amoxicillin-Pot Clavulanate 875-125 MG Oral Tablet (Augmentin) Take 1 Tablet by mouth in the morning and 1 Tablet before bedtime. Active Cholecalciferol 25 MCG (1000 UT) Oral Tablet Take 1 Tablet by mouth in the morning. 3 Active Cyclobenzaprine HCl 5 MG Oral Tablet (Flexeril) Take 1 Tablet by mouth at bedtime. 3 Active Metoprolol Succinate ER 25 MG Oral Tablet Extended Release 24 Hour (toPROL XL) Take 0.5 Tablets by mouth in the morning. 4 Active Gabapentin 300 MG Oral Capsule (Neurontin)Indic ations:Acute bilateral thoracic back pain Take 1 Capsule by mouth in the morning and 1 Capsule before bedtime. 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 Dermatitis 04/03/2006 documented as of this encounter (statuses as of 04/13/2024) Social History Tobacco Use Types Packs/Day Years [...] Telephone Encounter - Blanca Fraire LPN - 04/13/2024 11:17 AM EST Palliative f/u phone call Call to , Lisa, for overall status check Spoke with Patient has been doing pretty good Back isn't hurting him as much Still takes tramadol which works well for him Had several family sarah celebrations over the past few weeks Had one yesterday and it was nice Still not taking the gabapentin He did have a fall recently at home, but no injuries Tripped over something in the living room He was recently hospitalized before sarah for low magnesium At [facility] Did f/u with PCP afterwards At this time is good with leaving follow up PRN She has our contact info, or PCP will get in touch with us if a follow up is needed documented in this encounter Plan of Treatment Upcoming Encounters Date Type Department Care Team (Late st Contact Info) Description 06/30/2024 11:45 AM EDT Office Visit Urology, [facility] [address] [facility] [place] [address] Berny Wakefield MD [address] [place] [address] Health Maintenance Due Date Last Done Comments [...] this encounter Medical Devices Implanted Type Area Cardiology Physician Device Identifier Shelf Expiration Date Model / Serial / Lot Kailashstent Non-Cover 10dm 6cm - [id number] Implanted:Qty: 1 on 01/09/2024 by Patricia Grace MD at OR [facility] [employer] [id number] 07/07/2024 [facility] / / [id number] Balloon Rx Hurcan 6-4x5.8 4592 - [id number] Implanted:Qty: 1 on 01/09/2024 by Patricia Grace MD at OR [facility] [employer] ENDOS[employer] [id number] 07/10/2025 [id number] / / [id number] documented as of this encounter Advance Directives Documents on File Type Date Recorded Patient Plumber Helper Expl anation GHAZALA 10/17/2023 signed on 10/15 POLST Care Teams Oracle Scm Consultant Relationship Specialty Start Date End Date Bialee Colon MD [address], [place] [address] PCP - General Family Medicine 06/27/23 documented as of this encounter
--- OUTSIDE RECORDS SUMMARY | 2024-05-07 20:44 | External Medical Summary | Summary of Care ---
Author Name Unknown Organization [facility] Address [address] [place] [address] Phone [phone] Care Team Providers Care Entry Table Operator Name Role Phone Bailee Colon MD Primary Care Provi caroline Reason for Visit * Reason Onset Date Comments Advice 03/05/2024 Order Request [facility] Encounter Details Date Type Department Care Team (Late st Contact Info) Description 03/05/2024 Telephone Urology [facility] [address] [facility] [address] [place] [address] Berny Wakefield MD [address] [place] [address] Advice; [facility] Allergies Active Allergy Reactions Criticality Noted Date Comments Ciprofloxacin 09/24/2023 documented as of this encounter (statuses as of 04/16/2024) Medications linaGLIPtin 5 MG Oral Tablet (Tradjenta) [...] as of this encounter (statuses as of 04/16/2024) Active Problems Problem Noted Date Diagnosed Date Pancreatic adenocarcinoma 10/04/2023 Cancer Staging:Clinical stage from 10/04/2023:Stage IB(cT2, cN0, cM0) - Signed by Domi Bains MD on 10/07/2023 Elevated prostate specific antigen (PSA) 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 PSA order faxed to Luís at his [employer] shop to take to [facility] [place] lab ahead of upcoming appt. Next appt moved to 06/30. * Telephone Encounter - Tabatha Jalloh OSA - 03/05/2024 10:05 AM EST Faxed to patients [phone] * Telephone Encounter - An Harvey LPN - 03/05/2024 9:50 AM EST Does the patient need the order or the results faxed? And where are we faxing it to (name of company, self, etc). Lmtcb. * Telephone Encounter - Pennie Garcia OSA - 03/05/2024 8:43 AM EST Pt would like his psa faxed to [phone]. documented in this encounter Plan of Treatment Upcoming Encounters Date Type Department Care Team (Late st Contact Info) Description 06/30/2024 11:45 AM EDT Office Visit Urology, [facility] [address] [facility] [place] [address] Berny Wakefield MD [...] this encounter Medical Devices Implanted Type Area Collar Turner Operator Device Identifier Shelf Expiration Date Model / Serial / Lot Hanarostent Non-Cover 10dm 6cm - [id number] Implanted:Qty: 1 on 01/09/2024 by Patricia Grace MD at OR [facility] [employer] [id number] 07/07/2024 [facility]-10-060 -180 / / [id number] Balloon Rx Hurcan 6-4x5.8 4592 - [id number] Implanted:Qty: 1 on 01/09/2024 by Patricia Grace MD at OR [facility] [employer] ENDOSCOPY [id number] 07/10/2025 [id number] / / [id number] documented as of this encounter Advance Directives Documents on File Type Date Recorded Patient Tanning Drum Operator Expl anation POLST 10/17/2023 signed on 10/15 POLST Care Teams Entry Table Operator Relationship Specialty Start Date End Date Bailee Colon MD 6 [facility] [place] [address] PCP - General Family Medicine 06/27/23 documented as of this encounter
--- OUTSIDE RECORDS SUMMARY | 2024-05-07 20:44 | External Medical Summary | Summary of Care ---
Author Name Unknown Organization [facility] Address [address] [place] [address] Phone [phone] Care Team Providers Care Tactical Response Group Officer Name Role Phone Bailee Colon MD Primary Care Provi caroline Reason for Visit * Reason Onset Date Comments Advice 03/05/2024 [facility] Encounter Details Date Type Department Care Team (Late st Contact Info) Description 03/05/2024 Telephone Urology [facility] [address] [facility] [address] [place] [address] Berny Wakefield MD [address] [place] [address] Advice; [facility] Allergies Active Allergy Reactions Criticality Noted [...] encounter Miscellaneous Notes * Telephone Encounter - Marni Jessica OSA - 04/16/2024 8:07 AM EST Patient calling in, they never received order fax, asking to refax to [phone], please advise, thanks * Telephone Encounter - An Harvey LPN - 03/05/2024 10:25 AM EST Spoke with pt's . PSA order faxed to Luís at his [employer] shop to take to [facility] [place] [facility] lab ahead of upcoming appt. Next appt moved to 06/30. * Telephone Encounter - Tabatha Jalloh OSA - 03/05/2024 10:05 AM EST Faxed to patients [phone] * Telephone Encounter - An Harvey LPN - 03/05/2024 9:50 AM EST Does the patient need the order or the results faxed? And where are we faxing it to (name of company, self, etc). Lmtcb. * Telephone Encounter - Pennie Garcia OSA - 03/05/2024 8:43 AM EST Pt would like his psa faxed to [phone]. documented in this encounter Plan of Treatment Upcoming Encounters Date Type Department Care Team (Late st Contact Info) Description 06/30/2024 11:45 AM EDT Office Visit Urology, [facility] [address] [place] [address] Berny Wakefield MD [address] [place] [address] Health Maintenance Due Date Last Done Comments [...] this encounter Medical Devices Implanted Type Area Customer Advisor Specialist Device Identifier Shelf Expiration Date Model / Serial / Lot Hanarostent Non-Cover 10dm 6cm - [id number] Implanted:Qty: 1 on 01/09/2024 by Patricia Grace MD at OR [facility] [employer] [id number] 07/07/2024 SHS-10-060 -180 / / [id number] Balloon Rx Hurcan 6-4x5.8 4592 - [id number] Implanted:Qty: 1 on 01/09/2024 by Patricia Grace MD at OR [facility] [employer] [id number] 07/10/2025 [id number] / / [id number] documented as of this encounter Advance Directives Documents on File Type Date Recorded Patient Granulator Operator Expl anation POLST 10/17/2023 signed on 10/15 POLST Care Teams Tactical Response Group Officer Relationship Specialty Start Date End Date Bailee Colon MD [address] [place] [address] PCP - General Family Medicine 06/27/23 documented as of this encounter
--- OUTSIDE RECORDS SUMMARY | 2024-05-07 20:44 | External Medical Summary | Summary of Care ---
Author Name Unknown Organization [facility] Address [address] [place] [address] Phone [phone] Care Team Providers Care Pharmacy Cashier Name Role Phone Bailee Colon MD Primary Care Provi caroline Reason for Visit * Reason Onset Date Comments Appointment 04/23/2024 Encounter Details Date Type Department Care Team (Late st Contact Info) Description 04/23/2024 Telephone [facility] [place] [facility] [address] [place] [address] Luisito Garrido, RITA [address] [place] [address] Appointment Allergies Active Allergy Reactions Criticality Noted Date Comments Ciprofloxacin 09/24/2023 documented as of this encounter (statuses as of 04/23/2024) Medications linaGLIPtin 5 MG Oral Tablet (Tradjenta) [...] as of this encounter (statuses as of 04/23/2024) Active Problems Problem Noted Date Diagnosed Date Pancreatic adenocarcinoma 10/04/2023 Cancer Staging:Clinical stage from 10/04/2023:Stage IB(cT2, cN0, cM0) - Signed by Domi Bains MD on 10/07/2023 Elevated prostate specific antigen (PSA) 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 Dermatitis 04/03/2006 documented as of this encounter (statuses as of 04/23/2024) Social History Tobacco Use Types Packs/Day Years [...] Telephone Encounter - Luisito Garrido OSA - 04/23/2024 8:50 AM EST [facility] letter sent [facility] episode= closed documented in this encounter Plan of Treatment Upcoming Encounters Date Type Department Care Team (Late st Contact Info) Description 06/30/2024 11:45 AM EDT Office Visit Urology, [facility] [address] [place] [address] Berny Wakefield MD 27 [...] this encounter Medical Devices Implanted Type Area High School French Teacher Device Identifier Shelf Expiration Date Model / Serial / Lot Kailashstent Non-Cover 10dm 6cm - [id number] Implanted:Qty: 1 on 01/09/2024 by Patricia Grace MD at OR [facility] [employer] [id number] 07/07/2024 SHS-10-060 -180 / / [id number] Balloon Rx Hurcan 6-4x5.8 4592 - [id number] Implanted:Qty: 1 on 01/09/2024 by Patricia Grace MD at OR [facility] [employer]OS[employer] [id number] 07/10/2025 [id number] / / [id number] documented as of this encounter Advance Directives Documents on File Type Date Recorded Patient Hand Baseball Sewer Expl anation POLST 10/17/2023 signed on 10/15 POLST Care Teams Pharmacy Cashier Relationship Specialty Start Date End Date Bailee Colon MD 6 [facility] [address] [place] [address] PCP - General Family Medicine 06/27/23 documented as of this encounter
--- OUTSIDE RECORDS SUMMARY | 2024-05-07 20:44 | External Medical Summary | Continuity of Care Document ---
Author Name Unknown Organization [address] Address [address] [place] [id number] Care Team Providers Care Custom Van Converter Name Role Phone Isaiah Bailee Bailey Primary Care Physician [phone] [id number] Date(s): 04/21/24 - 04/21/[address] [place] [id number] [facility], [address] [place] [address] [phone] Encounter Diagnosis Skin irritation(Discharge Diagnosis) - 04/21/24 Discharge Disposition: Home or Self Care Attending Physician: LEVAR Huertas Shari A Referring Physician: LEVAR Huertas Shari A Allergies, Adverse Reactions, Alerts Substance Criticality Severity Reaction Reaction Severity Status ciprofloxacin Dysequilbrium Ac tive Assessment and Plan Extracted from: Title:Office Visit Note Author:LEVAR Huertas Sh ari A Date:04/21/24 Skin irritation Acute, goal resolution. Mupirocin ointment to area tid for a week with follow up next week. will message on Saturday with update. Consider antibiotic by mouth or Wound Care Clinic referral if becomes open. Time: 28_mins 3- pre-visit chart review 20- visit, inclusive of history, exam, and discussion [...] q6h, Disp# 8.5 g, Refills: 3, [id number] Start Date: 05/02/21 Status: Ordered BD needle Ultra-Fine Pen 29G x 0.5" Start: 01/16/24 3:24:00 PM EDT, See Instructions, Disp# 100 each, Use as directed with insulin. Max__1__/day. Use new pen needle with each injection., Pharmacy: [id number] Start Date: 01/16/24 Status: Ordered cyclobenzaprine 5 mg oral tablet Start: 01/13/24 11:29:00 AM EDT, 1 tab, PO, qhs, Disp# 30 tab, Refills: 3, PRN: NEEDED FOR SPASM, Pharmacy: [facility] [id number] Start Date: 01/13/24 Status: Ordered dutasteride 0.5 mg oral capsule Start: 07/20/20 11:13:00 AM EDT, 1 cap, PO, Daily, Disp# 30 cap, Refills: 3, [id number] Start Date: 07/20/20 Status: Ordered Eliquis 5 mg oral tablet Start: 02/20/24 11:19:00 AM EST, 1 tab, PO, bid, Disp# 60 tab, Refills: 11, Pharmacy: [id number] Start Date: 02/20/24 Status: Ordered Flomax 0.4 mg oral capsule Start: 11/15/20 8:06:00 AM EDT, 1 cap, PO, qAM, Disp# 90 cap, Refills: 3, [id number] Start Date: 11/15/20 Status: Ordered Flonase 50 mcg/inh nasal spray Start: 03/27/23 12:45:00 PM EST, 1 spray, each nostril, Daily, Disp# 16 g, Refills: 3, [id number] Start Date: 03/27/23 Status: Ordered furosemide 20 mg oral tablet Start: 12/26/21 8:58:00 AM EDT, See Instructions, Disp# 90 tab, Refills: 4, as needed for weight gain 2 lbs in 24 hours or 5 lbs in a week, Pharmacy: [facility] [id number] Start Date: 12/26/21 Status: Ordered inhaler spacer Start: 10/14/20 11:17:00 AM EDT, See Instructions, Disp# 1 each, dispense 1, [id number] Start Date: 10/14/20 Status: Ordered Lantus Solostar Pen 100 units/mL subcutaneous solution Start: 01/16/24 3:00:00 PM EDT, 5 unit =, subQ, Daily, Disp# 10 mL, Refills: 2, Pharmacy: [id number] Start Date: 01/16/24 Stop Date: 04/15/24 Status: Ordered metFORMIN 500 mg oral tablet Start: 12/09/23 9:10:00 AM EDT, See Instructions, Disp# 360 tab, Refills: 1, TAKE 2 TABLETS BY MOUTH WITH NOON MEAL AND WITH EVENING MEAL, Pharmacy: [facility] [id number] Start Date: 12/09/23 Status: Ordered metoprolol succinate 25 mg oral tablet, extended release Start: 07/24/23 9:44:00 AM EDT, 1.5 tab, PO, Daily, Disp# 135 tab, Refills: 3, [id number] Start Date: 07/24/23 Status: Ordered multivitamin Start: 07/27/21 8:00:00 AM EDT, 1 tab, PO, Daily Start Date: 07/27/21 Status: Ordered mupirocin 2% topical ointment Start: 04/21/24 2:57:00 PM EST, 1 appl, topical, tid, Disp# 22 g, Pharmacy: [email or web address] #[id number] Start Date: 04/21/24 Stop Date: 04/28/24 Status: Ordered One Touch Finepoint (25G) Lancets Start: 06/26/17 8:54:00 AM EDT, See Instructions, Disp# 1 box, Refills: 6, test daily, Dx : E11.9, Pharmacy: [email or web address] #[id number] Start Date: 06/26/17 Status: Ordered One Touch Ultra Test Strips 100 ct Start: 10/27/19 4:37:00 PM EDT, See Instructions, Disp# 100 each, Refills: 6, test daily, Dx: E11.9,Pharmacy: [id number] Start Date: 10/27/19 Status: Ordered One Touch UltraMini Glucose Monitor Start: 06/26/17 8:52:00 AM EDT, See Instructions, Disp# 1 unit, Refills: 0, test daily, Dx : E11.9, Pharmacy: [email or web address] #[id number] Start Date: 06/26/17 Status: Ordered pravastatin 20 mg oral tablet Start: 10/28/23 5:27:00 PM EDT, See Instructions, Disp# 90 tab, Refills: 3, TAKE 1 TABLET BY MOUTH EVERYDAY AT BEDTIME, [facility]: [id number] Start Date: 10/28/23 Status: Ordered Tradjenta 5 mg oral tablet Start: 09/19/23 8:33:00 AM EDT, See Instructions, Disp# 90 tab, Refills: 3, TAKE 1 TABLET BY MOUTH EVERY DAY, Pharmacy: [email or web address] #[id number] Start Date: 09/19/23 Status: Ordered traMADol 50 mg oral tablet Start: 04/16/24 1:30:00 PM EST, See Instructions, Disp# 120 tab, Refills: 0, 1-2 tab PO q6h as needed for pain not to exceed 400 mg/day, PRN: as needed for pain, Pharmacy: [id number] Start Date: 04/16/24 Status: Ordered Vitamin D3 Start: 07/27/21 8:00:00 AM EDT Start Date: 07/27/21 Status: Ordered Mental Status 04/21/24 Barriers to Learning one year None evide nt Mandatory Health Literacy Documentation Yes Health Literacy Communication Barriers N ever Primary Language Welsh Problem List Condition Confirmation Course Effective Dates [...] Dates Health Status Cl inical Service Informant Skin irritation Discharge Diagnosis 04/21/24 Non-Specified Procedures Procedure Date Related Diagnosis Body [...] to oldest [Reference Range]: 1 Patient Weight 85.7 kg (04/21/24 2:27 PM) Temperature [36.5-37.9 DegC] 35.3 DegC *LOW* (04/21/24 2:27 PM) Blood Pressure 92/66mmHg (04/21/24 2:27 PM) Cuff Pulse Pressure 26 mmHg (04/21/24 2:27 PM) Social History Social History Type Response Smoking Status Never smoked cigaret lisandra Sex Male Sex Representation Male (finding) [facility] Outpt Note * LEVAR Huertas Shari A: PERFORM, MODIFY, MODIFY, MODIFY Event Display: [facility] Outpt Note Authored Date: Chief Complaint RT hip pain x2-3wks (has sore area on hip), declines flu inj. History of Present Illness 83 y.o. male with pancreatic cancer and diabetes here today for c/o right hip pain. Ongoing for 2-3 weeks. thinks area is irritated from a button on the mattress and has improved somewhat with changing the mattress cover. states is not open. He will lay on his right side to go sleep, unable to lay on the left side since his shoulder surgery. Review of Systems Constitutional: No fever, No chills, No fatigue._ Respiratory: No shortness of breath, No cough, No wheezing. _ Cardiovascular: no lightheadedness/presyncope, No chest pain, No palpitations._ Gastrointestinal: No nausea, No vomiting, No diarrhea, No constipation, No heartburn, No abdominal pain._ Musculoskeletal: No back pain, No neck pain, No joint pain, No muscle pain, No decreased range ofmotion, No trauma._ Skin:see HPI Neurologic:No abnormal balance, No numbness, No tingling, No headache._ Physical Exam Vitals & Measurements T:35.3C BP:92/66 SpO2:100% WT:85.700kg(Dosing) WT:85.7kg PHQ2 Data(Data Documented on:04/21/2024 14:26) Emotional health assessment NEGATIVE General: _Alert and oriented, No acute distress HEENT: _ Normocephalic Neck: supple Cardiovascular: _Normal rate, Regular rhythm, No murmur, No gallop. Respiratory: _Lungs are clear to auscultation, Respirations are non-labored, Breath sounds are equal Musculoskeletal: _Normal range of motion,normal strength. Neurologic:Normal sensory, Normal motor function, CN II-XII grossly intact. Integumentary: _Warm, Dry, [place]. 3 cm area of erythema R lateral hip, no open area seen, top layer of skin peeling away at central area Psych: Mood-affect congruence. Reports no SI/HI. Speech is of normal pace and content Assessment/Plan Skin irritation Acute, goal resolution. Mupirocin ointment to area tid for a week with follow up next week. will message on Saturday with update. Consider antibiotic by mouth or Wound Care Clinic referral if becomes open. Time: 28_mins 3- pre-visit chart review 20- visit, inclusive of history, exam, and discussion [...] oral tablet), 1 tab, PO, qhs, PRN dexAMETHasone(dexAMETHasone 4 mg oral tablet), 4 mg= 1 tab, PO, Daily diabetes supplies(One Touch Ultra Test Strips 100 [...] Daily pravastatin(pravastatin 20 mg oral tablet), See Instructions, 3 refills sacubitril-valsartan(Entresto 24 mg-26 mg oral tablet), 1 tab, PO, bid, 11 refills syringe needles(BD needle Ultra-Fine Pen 29G x 0.5"), See Instructions tamSULOsin(Flomax 0.4 mg oral capsule), 0.4 mg= 1 cap, PO, qAM, 3 refills traMADol(traMADol 50 mg oral tablet), See Instructions, PRN Allergies ciprofloxacinDysequilbrium Social History Smoking Status Never smoked cigarettes Alcohol - Denies Alcohol Use - Comments: AUDIT-C score = 0 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 Cancer: Father. Health Status Family Member(s) Immunizations Vaccine Date Status influenza virus vaccine, inactivated 01/31/2023 Given influenza virus vaccine, inactivated 02/13/2022 Given Comments : lAise Stockton LPN SARS-CoV-2 (COVID-19) mRNA-1273 vaccine 04/05/2021 [...] due09/30/23and every 1year Due Adult COVID-19 Vaccination due04/21/24Unknown Frequency Shingles Vaccine due04/21/24One-time only Due In Future Adult Social Determinants of Health Screening not due until09/18/24and every 366day Diabetes Management A1c not due until12/20/24and every 366day Diabetic Eye Exam not due until03/26/25and every 731day Satisfied(in the past 1 year) Satisfied Body Mass Index on02/04/24.Satisfied by DUSTIN Kelley Lori Diabetes Management A1c on12/20/23.Satisfied by Contributor_system, [email or web address] Diabetes Nephropathy Management on12/20/23.Satisfied by Contributor_system, [email or web address] Electronic Signature on File Electronically Reviewed/Signed by: LEVAR Conti Author Signature Dt/Tm:04/21/2024 04:12 PM Department of Family Medicine [facility] Patient Care team information Care Team Personnel Name: Virginia Dougherty Christine A Position: Pharmacist Member Role: Pharmacy - Lifetime Name: SHREYA Green Lynn Position: Physician Cardiology Technician Exempt - Vasc Surg Member Role: Lifetime Relationship Address: [address] [facility] [address] [place] [address] [place] Name: MD Escobar Nandini Position: Physician - Card Heart Failure Member Role: Lifetime Relationship Address: [address] [facility] [address] [place] [address] [place] Name: MD Colon Ravishankar E Position: Physician Member Role: Primary Care Provider Address: [address] [facility] [address] [place] [address] Name: Virginia Maddox Kyle Position: Pharmacist Member Role: Pharmacy - Lifetime Address: [address] [place] [id number] [place] Care Team Related Persons Name: GUNNAR MTZ Name: PARI CARRASCO
--- OUTSIDE RECORDS SUMMARY | 2024-05-07 20:44 | External Medical Summary | Summary of Care ---
Author Name Unknown Organization [facility] Address [address] [place] [address] Phone [phone] Care Team Providers Care Quantitative Developer Name Role Phone Bailee Colon MD Primary Care Provi caroline Encounter Details Date Type Department Care Team (Late st Contact Info) Description 04/14/2024 Population Health External Data Unspecified Department Allergies Active Allergy Reactions Criticality Noted Date Comments Ciprofloxacin 09/24/2023 documented as of this encounter (statuses as of 04/15/2024) Medications linaGLIPtin 5 MG Oral Tablet (Tradjenta) [...] as of this encounter (statuses as of 04/15/2024) Active Problems Problem Noted Date Diagnosed Date Pancreatic adenocarcinoma 10/04/2023 Cancer Staging:Clinical stage from 10/04/2023:Stage IB(cT2, cN0, cM0) - Signed by Domi Bains MD on 10/07/2023 Elevated prostate specific antigen (PSA) 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 [address] [facility] [place] [id number] Berny Wakefield MD [address] [place] [address] Health Maintenance Due Date Last Done Comments [...] this encounter Medical Devices Implanted Type Area Typesetting Machine Tender Device Identifier Shelf Expiration Date Model / Serial / Lot Raarostent Non-Cover 10dm 6cm - [id number] Implanted:Qty: 1 on 01/09/2024 by Patricia Grace MD at OR [facility] [employer] [id number] 07/07/2024 [facility]-10-060 -180 / / [id number] Balloon Rx Hurcan 6-4x5.8 4592 - [id number] Implanted:Qty: 1 on 01/09/2024 by Patricia Grace MD at OR [facility] [employer] ENDOSCOPY [id number] 07/10/2025 [id number] / / [id number] documented as of this encounter Advance Directives Documents on File Type Date Recorded Patient Parking Analyst Expl anation POLST 10/17/2023 signed on 10/15 POLST Care Teams Quantitative Developer Relationship Specialty Start Date End Date Bailee Colon MD [address] [place] [address] PCP - General Family Medicine 06/27/23 documented as of this encounter
--- OUTSIDE RECORDS SUMMARY | 2024-05-07 20:44 | External Medical Summary | Summary of Care ---
Author Name Unknown Organization [facility] Address [address] [place] [address] Phone [phone] Care Team Providers Care Alterations Sewer Name Role Phone Bailee Colon MD Primary Care Provi caroline Reason for Visit * Reason Onset Date Comments [facility]: Screening 04/21/2024 Encounter Details Date Type Department Care Team (Late st Contact Info) Description 04/21/2024 Telephone [facility] [place] [address] [place] [address] Lola Garcia LPN [address] [place] [address] [facility]: Screening Allergies Active Allergy Reactions Criticality Noted Date [...] encounter Miscellaneous Notes * Telephone Encounter - Lola Garcia LPN - 04/21/2024 1:03 PM EST Luís Murray was referred as a potential candidate for enrollment for [facility]. A review of this chart was completed and: Luís meets criteria for [facility]. Jump to Initiation Lola Garcia LPN [facility] 04/21/2024,1:03 PM documented in this encounter Plan of Treatment Upcoming Encounters Date Type Department Care Team (Late st Contact Info) Description 06/30/2024 11:45 AM EDT Office Visit Urology, [facility] [address] [facility] [place] [address] Berny Wakefield MD [address] [place] [address] Health Maintenance Due Date Last Done Comments [...] this encounter Medical Devices Implanted Type Area Magician/Illusionist Device Identifier Shelf Expiration Date Model / Serial / Lot Hanarostent Non-Cover 10dm 6cm - [id number] Implanted:Qty: 1 on 01/09/2024 by Patricia Grace MD at OR [facility] [employer] [id number] 07/07/2024 [facility]-10-060 -180 / / [id number] Balloon Rx Hurcan 6-4x5.8 4592 - [id number] Implanted:Qty: 1 on 01/09/2024 by Patricia Grace MD at OR [facility] [employer] ENDOSCOPY [id number] 07/10/2025 [id number] / / [id number] documented as of this encounter Advance Directives Documents on File Type Date Recorded Patient [employer] Paralegal Expl anation POLST 10/17/2023 signed on 10/15 POLST Care Teams Alterations Sewer Relationship Specialty Start Date End Date Bailee Colon MD [address] [place] [address], [place] [address] PCP - General Family Medicine 06/27/23 documented as of this encounter
--- OUTSIDE RECORDS SUMMARY | 2024-05-07 20:45 | External Medical Summary | Summary of Care ---
Author Name Unknown Organization [facility] Address [address] [place] [address] Phone [phone] Care Team Providers Care Carpet Installer Helper Name Role Phone Bailee Colon MD Primary Care Provi caroline Encounter Details Date Type Department Care Team (Late st Contact Info) Description 03/23/2024 Population Health External Data Unspecified Department Allergies Active Allergy Reactions Criticality Noted Date Comments Ciprofloxacin 09/24/2023 documented as of this encounter (statuses as of 03/23/2024) Medications linaGLIPtin 5 MG Oral Tablet (Tradjenta) [...] as of this encounter (statuses as of 03/23/2024) Active Problems Problem Noted Date Diagnosed Date Pancreatic adenocarcinoma 10/04/2023 Cancer Staging:Clinical stage from 10/04/2023:Stage IB(cT2, cN0, cM0) - Signed by Domi Bains MD on 10/07/2023 Elevated prostate specific antigen (PSA) 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 [address] [place] [address] Berny Wakefield MD [address] [place] [address] Health Maintenance Due Date Last Done Comments [...] encounter Medical Devices Implanted Type Area Senior Solutions Workflow Consultant Device Identifier Shelf Expiration Date Model / Serial / Lot Hanarostent Non-Cover 10dm 6cm - [id number] Implanted:Qty: 1 on 01/09/2024 by Patricia Grace MD at OR [facility] [place] [employer] [id number] 07/07/2024 [facility]-10-060 -180 / / [id number] Balloon Rx Hurcan 6-4x5.8 4592 - [id number] Implanted:Qty: 1 on 01/09/2024 by Patricia Grace MD at OR [facility] [employer] [facility]OS[facility] [id number] 07/10/2025 [id number] / / [id number] documented as of this encounter Advance Directives Documents on File Type Date Recorded Patient Home Health Care Physician Expl anation POLST 10/17/2023 signed on 10/15 POLST Care Teams Carpet Installer Helper Relationship Specialty Start Date End Date Bailee Colon MD [address] [place] [address] PCP - General Family Medicine 06/27/23 documented as of this encounter
--- OUTSIDE RECORDS SUMMARY | 2024-05-07 20:45 | External Medical Summary | Continuity of Care Document ---
Author Name Unknown Organization [address] Address [address] [place] [address] [place], [place] [id number] Care Team Providers Care Application Programmer Analyst Name Role Phone Bailee Colon Primary Care Physician [phone] Encounter [facility]BR [id number] Date(s): 03/27/24 - 03/27/[address] [place] [id number] [facility], [facility] [address] [place] [address] [phone] Encounter Diagnosis Prostate cancer(Discharge Diagnosis) - 03/27/24 Pancreatic adenocarcinoma(Discharge Diagnosis) - 03/27/24 Adjustment disorder with other symptoms(Discharge Diagnosis) - 03/27/24 Hypomagnesemia(Discharge Diagnosis) - 03/27/24 Malignant neoplasm of prostate(Final) - Malignant neoplasm of pancreas, unspecified(Final) - Adjustment disorder with other symptoms(Final) - Hypomagnesemia(Final) - Discharge Disposition: Home or Self Care Attending Physician: MD Colon Ravishankar E Referring Physician: MD Colon Ravishankar E Allergies, Adverse Reactions, Alerts Substance Criticality Severity Reaction Reaction Severity Status ciprofloxacin Dysequilbrium Ac tive Assessment and Plan Extracted from: Title:Office Visit Note Author:MD Colon Ravishan kar E Date:03/27/24 1.Prostate cancer - Stable, follows with Urology with PSA suggesting control with prnLupron shots - Follows with Dr. Wakefield - Continue as planned 2.Pancreatic adenocarcinoma - Clinically stable on last stent replacement, no clinical symptoms of advancing disease - Continue to follow with palliative/oncology 3.Adjustment disorder with other symptoms - Trial of bupropion XL 150mg daily, titrate to 300mg as needed to help with sleep/wake timing and mood/energy level 4.Hypomagnesemia - Mg, CMP, and CBC drawn to f/u ED labs - Mg Glycinate supplementation encouraged, provided specific dosing/bottle info to buy OTC f/u as scheduled. Time: 40mins 5 - pre-visit chart review [...] q6h, Disp# 8.5 g, Refills: 3, Pharmacy: [facility]/pharmacy #[id number] Start Date: 05/02/21 Status: Ordered BD needle Ultra-Fine Pen 29G x 0.5" Start: 01/16/24 3:24:00 PM EDT, See Instructions, Disp# 100 each, Use as directed with insulin. Max__1__/day. Use new pen needle with each injection., Pharmacy: [id number] Start Date: 01/16/24 Status: Ordered cyclobenzaprine 5 mg oral tablet Start: 01/13/24 11:29:00 AM EDT, 1 tab, PO, qhs, Disp# 30 tab, Refills: 3, PRN: NEEDED FOR SPASM, Pharmacy: [id number] Start Date: 01/13/24 Status: Ordered dexAMETHasone 4 mg oral tablet Start: 02/04/24 7:44:00 AM EST, 1 tab, PO, Daily, Disp# 14 tab, Refills: 0, Pharmacy: [facility]/pharmacy #[id number] Start Date: 02/04/24 Stop Date: 02/18/24 Status: Ordered dutasteride 0.5 mg oral capsule Start: 07/20/20 11:13:00 AM EDT, 1 cap, PO, Daily, Disp# 30 cap, Refills: 3, Pharmacy: [facility]/pharmacy #[id number] Start Date: 07/20/20 Status: Ordered Eliquis 5 mg oral tablet Start: 02/20/24 11:19:00 AM EST, 1 tab, PO, bid, Disp# 60 tab, Refills: 11, Pharmacy: [id number] Start Date: 02/20/24 Status: Ordered Entresto 24 mg-26 mg oral tablet Start: 04/25/23 11:47:00 AM EST, 1 tab, PO, bid, Disp# 60 tab, Refills: 11, Pharmacy: [facility]/pharmacy #[id number] Start Date: 04/25/23 Status: Ordered Flomax 0.4 mg oral capsule Start: 11/15/20 8:06:00 AM EDT, 1 cap, PO, qAM, Disp# 90 cap, Refills: 3, Pharmacy: [facility]/pharmacy #[id number] Start Date: 11/15/20 Status: Ordered Flonase 50 mcg/inh nasal spray Start: 03/27/23 12:45:00 PM EST, 1 spray, each nostril, Daily, Disp# 16 g, Refills: 3, Pharmacy: [facility]/pharmacy #[id number] Start Date: 03/27/23 Status: Ordered furosemide 20 mg oral tablet Start: 12/26/21 8:58:00 AM EDT, See Instructions, Disp# 90 tab, Refills: 4, as needed for weight gain 2 lbs in 24 hours or 5 lbs in a week, Pharmacy: [id number] Start Date: 12/26/21 Status: Ordered inhaler spacer Start: 10/14/20 11:17:00 AM EDT, See Instructions, Disp# 1 each, dispense 1, Pharmacy: [facility]/pharmacy #[id number] Start Date: 10/14/20 Status: Ordered Lantus Solostar Pen 100 units/mL subcutaneous solution Start: 01/16/24 3:00:00 PM EDT, 5 unit =, subQ, Daily, Disp# 10 mL, Refills: 2, Pharmacy: [id number] Start Date: 01/16/24 Stop Date: 04/15/24 Status: Ordered metFORMIN 500 mg oral tablet Start: 12/09/23 9:10:00 AM EDT, See Instructions, Disp# 360 tab, Refills: 1, TAKE 2 TABLETS BY MOUTH WITH NOON MEAL AND WITH EVENING MEAL, Pharmacy: [id number] Start Date: 12/09/23 Status: Ordered metoprolol succinate 25 mg oral tablet, extended release Start: 07/24/23 9:44:00 AM EDT, 1.5 tab, PO, Daily, Disp# 135 tab, Refills: 3, [id number] Start Date: 07/24/23 Status: Ordered multivitamin Start: 07/27/21 8:00:00 AM EDT, 1 tab, PO, Daily Start Date: 07/27/21 Status: Ordered One Touch Finepoint (25G) Lancets Start: 06/26/17 8:54:00 AM EDT, See Instructions, Disp# 1 box, Refills: 6, test daily, Dx : E11.9, [id number] Start Date: 06/26/17 Status: Ordered One Touch Ultra Test Strips 100 ct Start: 10/27/19 4:37:00 PM EDT, See Instructions, Disp# 100 each, Refills: 6, test daily, Dx: E11.9,[id number] Start Date: 10/27/19 Status: Ordered One Touch UltraMini Glucose Monitor Start: 06/26/17 8:52:00 AM EDT, See Instructions, Disp# 1 unit, Refills: 0, test daily, Dx : E11.9, [id number] Start Date: 06/26/17 Status: Ordered pravastatin 20 mg oral tablet Start: 10/28/23 5:27:00 PM EDT, See Instructions, Disp# 90 tab, Refills: 3, TAKE 1 TABLET BY MOUTH EVERYDAY AT BEDTIME, Pharmacy: [facility]/pharmacy #[id number] Start Date: 10/28/23 Status: Ordered Tradjenta 5 mg oral tablet Start: 09/19/23 8:33:00 AM EDT, See Instructions, Disp# 90 tab, Refills: 3, TAKE 1 TABLET BY MOUTH EVERY DAY, [id number] Start Date: 09/19/23 Status: Ordered traMADol 50 mg oral tablet Start: 03/27/24 8:04:00 AM EST, See Instructions, Disp# 120 tab, Refills: 0, 1-2 tab PO q6h as needed for pain not to exceed 400 mg/day, PRN: as needed for pain, [facility]acy: [id number] Start Date: 03/27/24 Status: Ordered Vitamin D3 Start: 07/27/21 8:00:00 AM EDT Start Date: 07/27/21 Status: Ordered Wellbutrin XL 150 mg/24 hours oral tablet, extended release Start: 03/27/24 8:15:00 AM EST, 1 tab, PO, Daily, Disp# 30 tab, Refills: 5, Pharmacy: [facility] #[id number] Start Date: 03/27/24 Stop Date: 09/23/24 Status: Ordered Mental Status 03/27/24 Barriers to Learning one year None evide nt Mandatory Health Literacy Documentation Yes Health Literacy Communication Barriers N ever Primary Language Lao Problem List Condition Confirmation Course Effective Dates [...] Clinical Service Informant Pancreatic adenocarcinoma Discharge Diagnosis 03/27/24 Non-Specified Prostate cancer Discharge Diagnosis 03/27/24 Non-Specified Adjustment disorder with other symptoms Discharge Diagnosis 03/27/24 Non-Specified Hypomagnesemia Discharge Diagnosis 03/27/24 Non-Specified Procedures Procedure Date Related Diagnosis Body [...] patient-matched implant Results Laboratory List Name Date Complete Blood Count (CBC) 03/27/24 Comprehensive Metabolic Panel (COMP META B PANEL) 03/27/24 Magnesium Level (MAGNESIUM) 03/27/24 Most recent to oldest [Reference Range]: 1 eGFR CKD-EPI [>60 mL/min/1.73 m2] 83 mL/ min/1.73 m2 1 (03/27/24 8:30 AM) Estimated CrCl 62.87 mL/min (03/27/24 12:27 PM) MPV [9.0-12.2 fL] 10.2 fL (03/27/24 8:30 AM) RDW [11.5-14.2 %] 13.7 % (03/27/24 8:30 AM) Anion Gap [5-14 mmol/L] 1 mmol/L *LOW* (03/27/24 8:30 AM) Alb [3.5-5.0 g/dL] 3.0 g/dL *LOW* (03/27/24 8:30 AM) Alk Phos [38-126 unit/L] 96 unit/L (03/27/24 8:30 AM) ALT [<50 unit/L] 24 unit/L (03/27/24 8:30 AM) AST [15-46 unit/L] 41 unit/L (03/27/24 8:30 AM) BUN [7-20 mg/dL] 22 mg/dL *HI* (03/27/24 8:30 AM) Ca [8.4-10.2 mg/dL] 8.8 mg/dL (03/27/24 8:30 AM) Cl- [96-107 mmol/L] 101 mmol/L (03/27/24 8:30 AM) HCO3 [22-30 mmol/L] 30 mmol/L (03/27/24 8:30 AM) Cret [0.70-1.30 mg/dL] 0.92 mg/dL (03/27/24 8:30 AM) Glu [74-106 mg/dL] 270 mg/dL *HI* (03/27/24 8:30 AM) Hct [39-48 %] 42.7 % (03/27/24 8:30 AM) Hgb [13.0-17.0 g/dL] 13.7 g/dL (03/27/24 8:30 AM) K [3.5-5.1 mmol/L] 4.8 mmol/L (03/27/24 8:30 AM) MCH [28-33 pg] 31.4 pg (03/27/24 8:30 AM) MCHC [32-36 g/dL] 32.1 g/dL (03/27/24 8:30 AM) MCV [81-96 fL] 97.9 fL *HI* (03/27/24 8:30 AM) Mg [1.6-2.3 mg/dL] 1.5 mg/dL 2 *LOW* (03/27/24 8:30 AM) Na [137-145 mmol/L] 132 mmol/L *LOW* (03/27/24 8:30 AM) Plts [150-350 K/uL] 206 K/uL (03/27/24 8:30 AM) RBC [4.40-5.60 M/uL] 4.36 M/uL *LOW* (03/27/24 8:30 AM) T Bili [0.2-1.3 mg/dL] 0.5 mg/dL (03/27/24 8:30 AM) Prot [6.3-8.2 g/dL] 6.0 g/dL *LOW* (03/27/24 8:30 AM) WBC [4.0-10.4 K/uL] 6.53 K/uL (03/27/24 8:30 AM) 1Result Comment: Testing Performed By: Dept of Pathology [facility] [address], [address] [place] [address] 2Result Comment: Testing Performed By: Dept of Pathology [facility] [address], [address] [place], [place] [address] Vital Signs Most recent to oldest [Reference Range]: 1 Patient Weight 88.5 kg (03/27/24 7:53 AM) Heart Rate 93 bpm (03/27/24 7:53 AM) Respiratory Rate 20 br/min (03/27/24 7:53 AM) Blood Pressure 102/62mmHg (03/27/24 7:53 AM) Social History Social History Type Response Smoking Status Never smoked cigaret lisandra Sex Male Sex Representation Male (finding) [facility] Outpt Note * MD Isaiah, Bailee Bailey: PERFORM Event Display: [facility] Outpt Note Authored Date: [id number] Chief Complaint was seen in ED on 03/20 for hypomag - having extreme fatigue and weakness History of Present Illness alejandra is an 83yoM here today with concern for fatigue/pain. He has history of prostate CA/pancreatic CA (not on treatment)and was seen recently in the ED for a presyncopal/shaking episode without confusion/loc. Pt was found to be low Mg but otherwise wnl on labs, EKG, and CT head. Last visit with Yasmin he had his stent replaced and was told there wasn't significant progression of his pancreatic mass which is reassuring. Diet has been good. Feels generally unmotivated/wants to sleep all the time. Gets disoriented about time of day due to sleeping so much. When asked he notes it's more apathy than true fatigue. He does well on steroids but sugars shoot up with it and he reverts back after the course ends despite strong response clinically. Pain is reasonably well controlled on tramadol, not using oxycodone at this point. Review of Systems 01/12pt ROS reviewed/negative except as noted in HPI. Physical Exam Vitals & Measurements HR:93(Monitored) RR:20 BP:102/62 SpO2:96% WT:88.5kg WT:88.500kg(Dosing) PHQ2 Data(Data Documented on:03/27/2024 07:49) Emotional health assessment POSITIVE PHQ-9 modified for adolescents not completed GENERAL APPEARANCE: The patient is alert, oriented and in no acute distress. VITALS: As above. HEENT: Head is normocephalic/atraumatic. CARDIOVASCULAR: +2 radialpulses. LUNGS: Respirations even and unlabored. EXTREMITIES: No cyanosis, clubbing or edema. PSYCH: Pleasant affect. No SI/HI. Somewhat apathetic/anhedonic. Good insight. NEUROLOGICAL: Grossly non-focal exam. SKIN: Warm and dry without any rash Assessment/Plan 1.Prostate cancer - Stable, follows with Urology with PSA suggesting control with prnLupron shots - Follows with Dr. Wakefield - Continue as planned 2.Pancreatic adenocarcinoma - Clinically stable on last stent replacement, no clinical symptoms of advancing disease - Continue to follow with palliative/oncology 3.Adjustment disorder with other symptoms - Trial of bupropion XL 150mg daily, titrate to 300mg as needed to help with sleep/wake timing and mood/energy level 4.Hypomagnesemia - Mg, CMP, and CBC drawn to f/u ED labs - Mg Glycinate supplementation encouraged, provided specific dosing/bottle info to buy OTC f/u as scheduled. 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 Exercise [...] Visit due11/15/21and every 1year Adult Influenza Vaccine due09/29/23and every 1year Due Adult COVID-19 Vaccination due03/27/24Unknown Frequency Shingles Vaccine due03/27/24One-time only Due In Future Adult Social Determinants of Health Screening not due until09/18/24and every 366day Diabetes Management A1c not due until12/20/24and every 366day Diabetic Eye Exam not due until03/26/25and every 731day Satisfied(in the past 1 year) Satisfied Body Mass Index on02/04/24.Satisfied by DUSTIN Kelley Lori Diabetes Management A1c on12/20/23.Satisfied by Contributor_system, [facility] [facility] Nephropathy [facility] on12/20/23.Satisfied by Contributor_system, [email or web address] Electronic Signature on File Electronically Reviewed/Signed by: Bailee Colon MD Author Signature Dt/Tm:03/27/2024 08:30 AM Department of Family Medicine [facility] Patient Care team information Care Team Personnel Name: Virginia Dougherty Christine A Position: Pharmacist Member Role: Pharmacy - Lifetime Name: SHREYA Green Lynn Position: Physician Educational Aide Exempt - Vasc Surg Member Role: Lifetime Relationship Address: [address] [facility] [address] [place] [address] [place] Name: MD Escobar Nandini Position: Physician - Card Heart Failure Member Role: Lifetime Relationship Address: [address] [place] [address] [place] Name: MD Colon Ravishankar E Position: Physician Member Role: Primary Care Provider Address: [address] [facility] [place] [address] [place] Name: Virginia Maddox Kyle Position: Pharmacist Member Role: Pharmacy - Lifetime Address: [address] [place] [address] [place] Care Team Related Persons Name: GUNNAR MTZ Name: PARI CARRASCO
--- OUTSIDE RECORDS SUMMARY | 2024-05-07 20:45 | External Medical Summary | Continuity of Care Document ---
Author Name Unknown Organization [address] Address [address] [place] [id number] Care Team Providers Care Supervisor Tank Cleaning Name Role Phone ColonRubenomar Bailey Primary Care Physician [phone] Encounter [facility] [id number] Date(s): 04/02/24 - 04/02/[address] [facility] [address] [facility], [address] [place] [address] [phone] Encounter Diagnosis Dizziness(Discharge Diagnosis) - 04/02/24 Medication side effect(Discharge Diagnosis) - 04/02/24 Dizziness and giddiness(Final) - Unspecified adverse effect of drug or medicament, initial encounter(Final) - Discharge Disposition: Home or Self Care Attending Physician: DO Droman Mehwish Referring Physician: DO Dorman Mehwish Allergies, Adverse Reactions, Alerts Substance Criticality Severity Reaction Reaction Severity Status ciprofloxacin Dysequilbrium Ac tive Assessment and Plan Extracted from: Title:Office Visit Note - APSO Author:DO Dorman Mehwish Date:04/02/24 1.Dizziness 2.Medication side effect Chronic condition exacerbated/progressive/side effects of treatment Goal:Resolution Data:_ previous clinicnotes reviewed, previouslab resultsreviewed Plan: - Symptoms may be due to bupropion- reassuringthat he has had improvement, though as he is on XL- may take several days before it is out of his system - Advised to discontinue bupropion- if symptoms past 1 week, less likely related to bupropion - Will repeat electrolyte levels- given recent electrolyte abnormalities to rule that out as a etiology - Red flag symptoms were discussed with the patient and his , along with indications to seek care in the ED. Immunizations Given and Recorded Vaccine Date Status [...] q6h, Disp# 8.5 g, Refills: 3, Pharmacy: [facility]/pharmacy #[id number] Start Date: 05/02/21 Status: Ordered BD needle Ultra-Fine Pen 29G x 0.5" Start: 01/16/24 3:24:00 PM EDT, See Instructions, Disp# 100 each, Use as directed with insulin. Max__1__/day. Use new pen needle with each injection., Pharmacy: [id number] Start Date: 01/16/24 Status: Ordered cyclobenzaprine 5 mg oral tablet Start: 01/13/24 11:29:00 AM EDT, 1 tab, PO, qhs, Disp# 30 tab, Refills: 3, PRN: NEEDED FOR SPASM, Pharmacy: [id number] Start Date: 01/13/24 Status: Ordered dexAMETHasone 4 mg oral tablet Start: 02/04/24 7:44:00 AM EST, 1 tab, PO, Daily, Disp# 14 tab, Refills: 0, [id number] Start Date: 02/04/24 Stop Date: 02/18/24 Status: Ordered dutasteride 0.5 mg oral capsule Start: 07/20/20 11:13:00 AM EDT, 1 cap, PO, Daily, Disp# 30 cap, Refills: 3, Pharmacy: [facility]/pharmacy #[id number] Start Date: 07/20/20 Status: Ordered Eliquis 5 mg oral tablet Start: 02/20/24 11:19:00 AM EST, 1 tab, PO, bid, Disp# 60 tab, Refills: 11, Pharmacy: [id number] Start Date: 02/20/24 Status: Ordered Entresto 24 mg-26 mg oral tablet Start: 04/25/23 11:47:00 AM EST, 1 tab, PO, bid, Disp# 60 tab, Refills: 11, Pharmacy: [facility]/pharmacy #[id number] Start Date: 04/25/23 Status: Ordered Flomax 0.4 mg oral capsule Start: 11/15/20 8:06:00 AM EDT, 1 cap, PO, qAM, Disp# 90 cap, Refills: 3, Pharmacy: [facility]/pharmacy #[id number] Start Date: 11/15/20 Status: Ordered Flonase 50 mcg/inh nasal spray Start: 03/27/23 12:45:00 PM EST, 1 spray, each nostril, Daily, Disp# 16 g, Refills: 3, Pharmacy: [facility]/pharmacy #[id number] Start Date: 03/27/23 Status: Ordered furosemide 20 mg oral tablet Start: 12/26/21 8:58:00 AM EDT, See Instructions, Disp# 90 tab, Refills: 4, as needed for weight gain 2 lbs in 24 hours or 5 lbs in a week, Pharmacy: [id number] Start Date: 12/26/21 Status: Ordered inhaler spacer Start: 10/14/20 11:17:00 AM EDT, See Instructions, Disp# 1 each, dispense 1, Pharmacy: [facility]/pharmacy #[id number] Start Date: 10/14/20 Status: Ordered Lantus Solostar Pen 100 units/mL subcutaneous solution Start: 01/16/24 3:00:00 PM EDT, 5 unit =, subQ, Daily, Disp# 10 mL, Refills: 2, Pharmacy: [id number] Start Date: 01/16/24 Stop Date: 04/15/24 Status: Ordered metFORMIN 500 mg oral tablet Start: 12/09/23 9:10:00 AM EDT, See Instructions, Disp# 360 tab, Refills: 1, TAKE 2 TABLETS BY MOUTH WITH NOON MEAL AND WITH EVENING MEAL, Pharmacy: [id number] Start Date: 12/09/23 Status: Ordered metoprolol succinate 25 mg oral tablet, extended release Start: 07/24/23 9:44:00 AM EDT, 1.5 tab, PO, Daily, Disp# 135 tab, Refills: 3, Pharmacy: [facility]/pharmacy #[id number] Start Date: 07/24/23 Status: Ordered multivitamin Start: 07/27/21 8:00:00 AM EDT, 1 tab, PO, Daily Start Date: 07/27/21 Status: Ordered One Touch Finepoint (25G) Lancets Start: 06/26/17 8:54:00 AM EDT, See Instructions, Disp# 1 box, Refills: 6, test daily, Dx : E11.9, [id number] Start Date: 06/26/17 Status: Ordered One Touch Ultra Test Strips 100 ct Start: 10/27/19 4:37:00 PM EDT, See Instructions, Disp# 100 each, Refills: 6, test daily, Dx: E11.9,Pharmacy: [facility]/pharmacy #[id number] Start Date: 10/27/19 Status: Ordered One Touch UltraMini Glucose Monitor Start: 06/26/17 8:52:00 AM EDT, See Instructions, Disp# 1 unit, Refills: 0, test daily, Dx : E11.9, [id number] Start Date: 06/26/17 Status: Ordered pravastatin 20 mg oral tablet Start: 10/28/23 5:27:00 PM EDT, See Instructions, Disp# 90 tab, Refills: 3, TAKE 1 TABLET BY MOUTH EVERYDAY AT BEDTIME, Pharmacy: [facility]/pharmacy #[id number] Start Date: 10/28/23 Status: Ordered Tradjenta 5 mg oral tablet Start: 09/19/23 8:33:00 AM EDT, See Instructions, Disp# 90 tab, Refills: 3, TAKE 1 TABLET BY MOUTH EVERY DAY, Pharmacy: [facility]/pharmacy #[id number] Start Date: 09/19/23 Status: Ordered traMADol 50 mg oral tablet Start: 03/27/24 8:04:00 AM EST, See Instructions, Disp# 120 tab, Refills: 0, 1-2 tab PO q6h as needed for pain not to exceed 400 mg/day, PRN: as needed for pain, Pharmacy: [facility]/pharmacy #[id number] Start Date: 03/27/24 Status: Ordered Vitamin D3 Start: 07/27/21 8:00:00 AM EDT Start Date: 07/27/21 Status: Ordered Mental Status 04/02/24 Barriers to Learning one year None evide nt Mandatory Health Literacy Documentation Yes Health Literacy Communication Barriers N ever Primary Language Serbian Problem List Condition Confirmation Course Effective Dates [...] Effective Dates Health Status Clinical Service Informant Dizziness Discharge Diagnosis 04/02/24 Non-Specified Medication side effect Discharge Diagnosis 04/02/24 Non-Specified Procedures Procedure Date Related Diagnosis Body [...] Basic Metabolic Panel (BASIC METAB PANEL ) 04/02/24 Magnesium Level (MAGNESIUM) 04/02/24 Most recent to oldest [Reference Range]: 1 eGFR CKD-EPI [>60 mL/min/1.73 m2] 85 mL/ min/1.73 m2 1 (04/02/24 12:11 PM) Estimated CrCl 64.99 mL/min (04/03/24 12:25 PM) Anion Gap [5-14 mmol/L] 5 mmol/L (04/02/24 12:11 PM) BUN [7-20 mg/dL] 20 mg/dL (04/02/24 12:11 PM) Ca [8.4-10.2 mg/dL] 9.0 mg/dL (04/02/24 12:11 PM) Cl- [96-107 mmol/L] 101 mmol/L (04/02/24 12:11 PM) HCO3 [22-30 mmol/L] 26 mmol/L (04/02/24 12:11 PM) Cret [0.70-1.30 mg/dL] 0.89 mg/dL (04/02/24 12:11 PM) Glu [74-106 mg/dL] 176 mg/dL *HI* (04/02/24 12:11 PM) K [3.5-5.1 mmol/L] 4.6 mmol/L (04/02/24 12:11 PM) Mg [1.6-2.3 mg/dL] 1.6 mg/dL 2 (04/02/24 12:11 PM) Na [137-145 mmol/L] 132 mmol/L *LOW* (04/02/24 12:11 PM) 1Result Comment: Testing Performed By: Dept of Pathology [facility], [address] [place] [id number] 2Result Comment: Testing Performed By: Dept of Pathology [facility], [address] [place] [id number] Vital Signs Most recent to oldest [Reference Range]: 1 Temperature [36.5-37.9 DegC] 36.1 DegC *LOW* (04/02/24 2:06 PM) Heart Rate 80 bpm (04/02/24 2:06 PM) Respiratory Rate 20 br/min (04/02/24 2:06 PM) Blood Pressure 96/62mmHg (04/02/24 2:06 PM) Social History Social History Type Response Smoking Status Never smoked cigaret lisandra Sex Male Sex Representation Male (finding) FCM Outpt Note * DO Dorman Mehwish: PERFORM Event Display: FCM Outpt Note Authored Date: [id number] Assessment/Plan 1.Dizziness 2.Medication side effect Chronic condition exacerbated/progressive/side effects of treatment Goal:Resolution Data:_ previous clinicnotes reviewed, previouslab resultsreviewed Plan: - Symptoms may be due to bupropion- reassuringthat he has had improvement, though as he is on XL-may take several days before it is out of his system - Advised to discontinue bupropion- if symptoms past 1 week, less likely related to bupropion - Will repeat electrolyte levels- given recent electrolyte abnormalities to rule that out as a etiology - Red flag symptoms were discussed with the patient and his , along with indications to seek care in the ED. Chief Complaint dizziness and vomiting after starting wellbutrin -med held now for 3 days but still dizzy, fatigued History of Present Illness Alejandra is an 83yo male seen for an acute visit today with his - for symptoms of dizziness. He saw PCP last week- and started on bupropion. Took it for a few days, and on the 3rd day got dizzy and threw up. Stopped taking it- last day was Saturday. Symptoms have been improving. No additional episodes of emesis since then. Was able to eat food yesterday. Did take some meclizine which helped. Feeling better today than he was yesterday. Also recently seen for low Mg- so has been taking a supplement. No other symptoms. No weakness. NO change in speech. Other than dizziness feels like himself. Physical Exam Vitals & Measurements T:36.1C HR:80(Monitored) RR:20 BP:96/62 SpO2:98% GENERAL APPEARANCE: The patient is alert, oriented and in no acute distress. HEENT: Head is normocephalic/atraumatic. CV: radial pulse 2+ LUNGS: Respirations even and unlabored. CTA EXTREMITIES: No cyanosis, clubbing or edema. NEUROLOGICAL: Grossly non-focal exam. CN 2-12 intact. EOMi. Responding to questions appropriately. 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 Exercise [...] due09/30/23and every 1year Due Adult COVID-19 Vaccination due04/03/24Unknown Frequency Shingles Vaccine due04/03/24One-time only Due In Future Adult Social Determinants of Health Screening not due until09/18/24and every 366day Diabetes Management A1c not due until12/20/24and every 366day Diabetic Eye Exam not due until03/26/25and every 731day Body Mass Index not due until03/28/25and every 366day Satisfied(in the past 1 year) Satisfied Body Mass Index on02/04/24.Satisfied by DUSTIN Kelley Lori Diabetes Management A1c on12/20/23.Satisfied by Contributor_system, [email or web address] Diabetes Nephropathy Management on12/20/23.Satisfied by Contributor_system, [email or web address] Electronic Signature on File CC: Bailee Colon MD [address] [id number] Electronically Reviewed/Signed by: Brittany Dorman DO Author Signature Dt/Tm:04/03/2024 08:58 AM Division of Sports Medicine MM Patient Care team information Care Team Personnel Name: Virginia Dougherty Christine A Position: Pharmacist Member Role: Pharmacy - Lifetime Name: SHREYA Green Lynn Position: Physician Termite Exterminator Exempt - Vas Surg Member Role: Lifetime Relationship Address: [address] [facility] [address] [place] [address] [place] Name: MD Escobar Nandini Position: Physician - Card Heart Failure Member Role: Lifetime Relationship Address: [address] [facility] [address] [place] [address] [place] Name: MD Isaiah, Bailee Bailey Position: Physician Member Role: Primary Care Provider Address: [address] [facility] [address] [place] [address] [place] Name: Virginia Maddox Kyle Position: Pharmacist Member Role: Pharmacy - Lifetime Address: [address] [place] [address] Care Team Related Persons Name: GUNNAR MTZ Name: PARI CARRASCO
[2024-05-07 21:22] LABS: Alanine Aminotransferase 11 U/L (7-52); Albumin Globulin Ratio 1.1 (0.9-2); Albumin Level 3.4 gm/dl (3.4-5.0); Alkaline Phosphatase 89 U/L (34-104); Anion Gap 11 (3-11); Aspartate Aminotransferase 23 U/L (13-39); Bilirubin,Total 0.4 mg/dl (0.2-1.0); Blood Urea Nitrogen 24 mg/dl (6-23); Calcium 9.1 mg/dl (8.6-10.3); Carbon Dioxide 32 mmol/L (21-32); Chloride 96 mmol/L (98-107); Globulin 3.1 gm/dl (2.5-4.0); Glucose 167 mg/dl (70-99(Fasting)); Lipase 7 U/L (11-82); Potassium 3.4 mmol/L (3.5-5.1); Sodium 139 mmol/L (136-145); Total Protein 6.5 gm/dl (6.0-8.3)
[2024-05-07] MEDS: OPTIRAY 320 100ml IV ONE (21:40)
[2024-05-07 21:41] LABS: Basophils # (auto) 0.02 K/uL (0.00-0.20); Basophils % (auto) 0.3 %; Eosinophils # (auto) 0.01 K/uL (0.00-0.50); Eosinophils % (auto) 0.1 %; Hemoglobin 13.4 g/dl (14.0-18.0); Immature Granulocytes # (auto) 0.02 K/uL (0.01-0.20); Immature Granulocytes % (auto) 0.3 %; Lymphocytes % (auto) 37.3 %; Mean Corpuscular Hemoglobin 31.8 pg (25.0-34.0); Mean Corpuscular Hgb Conc 34.4 g/dL (32.0-36.0); Mean Corpuscular Volume 92.6 fL (80.0-100.0); Mean Platelet Volume 10.1 fL (9.4-12.4); Monocytes # (auto) 0.41 K/uL (0.11-0.59); Monocytes % (auto) 5.5 %; Neutrophils # (auto) 4.24 K/uL (1.40-6.50); Neutrophils % (auto) 56.5 %; Platelet Count 219 K/uL (130-400); RDW Standard Deviation 43.9 fL (36.4-46.3); Red Blood Count 4.21 M/uL (4.70-6.10)
--- NOTE | 2024-05-07 21:42 | Emergency Department Note ---
Past Med/Surg History Problem List Elevated troponin Sepsis Altered mental status (Acute) Atrial fibrillation with RVR Altered mental status Hyperbilirubinemia Abnormal LFTs Chronic pancreatitis Painless jaundice (Acute) Encounter for pre-operative examination Severe aortic stenosis S/p TAVR 04/2019 Post-operative state (Acute 07/06/13) Post-operative state (Acute 08/17/13) Enlarged prostate Postoperative urinary retention Prostate nodule Complication, blocked Patrick catheter (Acute) Diarrhea (Acute) Elevated prostate specific antigen (PSA) Primary malignant neoplasm of prostate with high risk of recurrence due to Deangelo score of 8 to 10 and PSA greater than 20 Acute osteomyelitis of toe of right foot (Acute) Diabetic ulcer of toe of right foot (Acute) 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 foot ulcer CHF (congestive heart failure) History of aortic valve repair 04/2019[place] [facility] Arthritis 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 [employer] [id number] Micra VR TCP Serial # [id number]- CHECKED REMOTELY 06/15/22 Hyponatremia (Acute) Atrial fibrillation follows w/ Dr Andrade- last visit 06/2022 on Eliquis Diabetes Hypertension Osteoarthritis of left shoulder region Hx of shoulder replacement Medical History CAD (coronary artery disease) 04/2019 cardiac cath showed 30% LAD lesion, large first diagonal branch with 60-70% narrowing, 40% mid segment narrowing of nondominant circumflex, 30% mid and distal RCA lesions Prostate cancer currently being treated, Dr Ashu MAN History of COVID-19 05/2022- fatigue; no hospitalized; resolved Surgical History History of transcatheter aortic valve replacement (TAVR) 04/2019- [facility] Hx of cardiac catheterization 04/2019 [facility]- no stents- aortic valve replacement done at [facility] History of permanent cardiac pacemaker placement [employer] [id number] Micra VR TCP Serial # [id number] History of knee replacement Family History Brother Cancer 3 brothers/ prostate Other Family history non-contributory Social History Smoking Status: Never smoker Second Hand Exposure: No; Do You Dip or Chew Tobacco: No; Hx Alcohol Use: No Hx Substance Use: No Preferred Language: Welsh Communication Ability: Effective Visual Impairment: No Limitations Hearing Ability: Normal Rn Review Required: No Beliefs That Will Affect Care: None marital status: Current Living Situation: Spouse Current Living Situation Comment: lives at home with current occupational status: retired 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 Feels Safe at Home: Yes Diet: regular Diet Comment: Diabetic diet caffeine: Yes during the past year weight has: remained stable Assistive Devices: Cane Allergies Allergies Allergy/AdvReac Type Severity Reaction Status Date / Time ciprofloxacin Allergy Intermediate Dysequilibr Verified 10/30/23 21:05 ium Home Meds Home Medications Medication Instructions Recorded Confirmed apixaban 5 mg tablet (Eliquis) 5 mg PO BID 01/19/19 10/30/23 metformin 500 mg tablet 1,000 mg PO BID 01/19/19 10/30/23 multivitamin 1 tab PO QAM 01/19/19 10/30/23 tamsulosin 0.4 mg capsule (Flomax) 0.4 mg PO DAILY 04/06/19 10/30/23 furosemide 20 mg tablet (Lasix) 20 mg PO DIRECTED PRN swelling 05/08/19 10/30/23 linagliptin 5 mg tablet (Tradjenta) 5 mg PO DAILY 11/08/21 10/30/23 pravastatin 20 mg tablet 20 mg PO HS 11/08/21 10/30/23 sacubitril 24 mg-valsartan 26 mg 1 tab PO BID 11/08/21 10/30/23 tablet (Entresto) cholecalciferol (vitamin D3) 25 25 mcg PO QAM 08/02/22 10/30/23 mcg (1,000 unit) tablet metoprolol succinate 25 mg 37.5 mg PO QPM 09/13/23 10/30/23 tablet,extended release 24 hr tramadol 50 mg tablet 50 - 100 mg PO Q6H PRN Pain 09/13/23 10/30/23 Previous Rx's Medication Instructions Recorded dutasteride 0.5 mg capsule 0.5 mg PO DAILY #90 caps 10/28/19 Results & Data (ED) Vital Signs Vital Signs - 24 hr 05/07/24 20:20 05/07/24 20:35 05/07/24 20:57 Temperature 36.8 C Temperature Source Oral Pulse Rate 110 H 105 H 107 H Respiratory Rate 18 24 Respiratory Effort / Characteristics Non-Labored Spontaneous Respiratory Depth Normal Respiratory Pattern Regular Blood Pressure 148/124 H 128/73 Blood Pressure Mean 132 91 Pulse Oximetry 92 96 Oxygen Delivery Method Room Air Sepsis Recent Fever Within 48 Hours No Sepsis New/Unexplained Change in Mental Status No Sepsis Action Taken by Nursing No Action Required Laboratory Data 05/07/24 20:24 05/07/24 20:24 Lab Results 05/07/24 Range/Units 20:24 WBC 7.50 (4.8-10.8) K/ul RBC 4.21 L (4.70-6.10) M/uL Hgb 13.4 L (14.0-18.0) g/dl Hct 39.0 L (42.0-52.0) % MCV 92.6 (80.0-100.0) fL MCH 31.8 (25.0-34.0) pg MCHC 34.4 (32.0-36.0) g/dL RDW Std Deviation 43.9 (36.4-46.3) fL RDW Coeff of Alec 13.0 (11.5-14.5) % Plt Count 219 (130-400) K/uL MPV 10.1 (9.4-12.4) fL Immature Gran % (Auto) 0.3 % Neut % (Auto) 56.5 % Lymph % (Auto) 37.3 % [place] % (Auto) 5.5 % Eos % (Auto) 0.1 % Baso % (Auto) 0.3 % Neut # (Auto) 4.24 (1.40-6.50) K/uL Lymph # (Auto) 2.80 (1.20-3.40) K/uL [place]trim # (Auto) 0.41 (0.11-0.59) K/uL Eos # (Auto) 0.01 (0.00-0.50) K/uL Baso # (Auto) 0.02 (0.00-0.20) K/uL Immature Gran # (Auto) 0.02 (0.01-0.20) K/uL Sodium 139 (136-145) mmol/L Potassium 3.4 L (3.5-5.1) mmol/L Chloride 96 L (98-107) mmol/L Carbon Dioxide 32 (21-32) mmol/L Anion Gap 11 (3-11) BUN 24 H (6-23) mg/dl Creatinine 0.96 (0.6-1.4) mg/dl Est Cr Clr Drug Dosing Not Reportable eGFR 78.43 BUN/Creatinine Ratio 25.0 H (10-20) Glucose 167 H (70-99(Fasting)) mg/dl Calcium 9.1 (8.6-10.3) mg/dl Total Bilirubin 0.4 (0.2-1.0) mg/dl AST 23 (13-39) U/L ALT 11 (7-52) U/L Alkaline Phosphatase 89 (34-104) U/L Total Protein 6.5 (6.0-8.3) gm/dl Albumin 3.4 (3.4-5.0) gm/dl Globulin 3.1 (2.5-4.0) gm/dl Albumin/Globulin Ratio 1.1 (0.9-2) Lipase 7 L (11-82) U/L Administered Medications Discontinued Medications Ioversol (Optiray 320 100ml) 93 ml IV ONCE ONE Stop: 05/07/24 21:41 Last Admin: 05/07/24 21:40 Dose: 93 ml Documented By: ADELE Discharge Plan Visit Data Chief Complaint: Illness Stated Complaint: AB PAIN, NAUSA, VOMITING ED Provider: Ryan Khan Forms Stand Alone Forms: [facility] Prescriptions Prescriptions: No Action cholecalciferol (vitamin D3) 25 mcg (1,000 unit) tablet 25 mcg PO QAM Rx Instructions: Unable to verify this OTC medication at this date/time. Tradjenta 5 mg tablet 5 mg PO DAILY pravastatin 20 mg tablet 20 mg PO HS Rx Instructions: HS Entresto 24-26 mg tablet 1 tab PO BID dutasteride 0.5 mg capsule 0.5 mg PO DAILY Qty: 90 1RF multivitamin Tablet 1 tab PO QAM metformin 500 mg tablet 1,000 mg PO BID Eliquis 5 mg tablet 5 mg PO BID Rx Instructions: needs pm dose furosemide [Lasix] 20 mg Tablet 20 mg PO DIRECTED PRN (Reason: swelling) tamsulosin [Flomax] 0.4 mg Capsule 0.4 mg PO DAILY tramadol 50 mg tablet 50 - 100 mg PO Q6H MDD 400mg - daily PRN (Reason: Pain) metoprolol succinate 25 mg tablet extended release 24 hr 37.5 mg PO QPM Referrals Referrals: Matty Colon MD [Primary Care Provider] -
[2024-05-07] MEDS: ONDANSETRON INJ 2 MG/ML 2 ML VIAL IV STA (22:04)
[2024-05-07] MEDS: SODIUM CHLORIDE 0.9% 1,000 ML IV ONE (22:04)
[2024-05-07] MEDS: MoRPHine SULFATE 4 MG/ML 1 ML CARP\\VIAL IV STA ×2 (22:04→23:06)
[2024-05-07] MEDS: LIDOCAINE 1% LOCAL 20 ML VIAL INFIL ONE (23:06)
--- NOTE | 2024-05-07 23:06 | CT Scan Report ---
Exam(s): CT ABDOMEN + PELVIS With Contrast IV Amt: 93ml optiray 320 EXAM: CT Abdomen and Pelvis With Intravenous Contrast CLINICAL HISTORY: Reason for exam: abd pain, stomach stent/stomach cancer. TECHNIQUE: Axial computed tomography images of the abdomen and pelvis with intravenous contrast. Automated exposure control was utilized for the study. A dose lowering technique was utilized adhering to the principles of ALARA. CONTRAST: Patient received 93ml optiray 320 of IV contrast COMPARISON: Reference is made to MRCP dated 09/13/2023 FINDINGS: Lung bases: Unremarkable. No mass. No consolidation. Heart: Coronary artery calcifications. ABDOMEN: Liver: Unremarkable. No mass. Gallbladder and bile ducts: Cholelithiasis. Pneumobilia present secondary to a common bile duct stent. Distended urinary bladder. Pancreas: Marked pancreatic ductal dilatation with relatively extensive parenchymal atrophy involving the uncinate process body and tail of the pancreas. Spleen: Unremarkable. No splenomegaly. Adrenals: Unremarkable. No mass. Kidneys and ureters: Unremarkable. No solid mass. No hydronephrosis. Stomach and bowel: Unremarkable. No obstruction. No mucosal thickening. PELVIS: Appendix: No findings to suggest acute appendicitis. Bladder: Unremarkable. No mass. Reproductive: Unremarkable as visualized. ABDOMEN and PELVIS: Intraperitoneal space: Unremarkable. No free air. No significant fluid collection. Bones/joints: No acute fracture. No dislocation. Soft tissues: Unremarkable. Vasculature: Postoperative changes aortic valvular repair. Lymph nodes: Unremarkable. No enlarged lymph nodes. IMPRESSION: No acute findings in the abdomen or pelvis. Extensive pancreas ductal dilatation consistent with the patient's known history of IPMN Pneumobilia secondary to interval placement of a common bile duct stent Electronically signed by: Elia Cat MD 05/07/24 23:05 PM
[2024-05-08] MEDS: SODIUM CHLORIDE 0.9% 500 ML IV ONE (00:36)
[2024-05-08] MEDS ORDERED: GLUCOSE 40% GEL 15 GM TUBE PO PRN (00:46)
[2024-05-08] MEDS ORDERED: GLUCAGON FOR INJ 1 MG VIAL SQ PRN (00:46)
[2024-05-08] MEDS ORDERED: DEXTROSE 50% 50 ML SYRINGE IV PRN (00:46)
[2024-05-08] MEDS ORDERED: GLUCOSE 10 TAB/TUBE PO PRN (00:46)
[2024-05-08] MEDS ORDERED: ONDANSETRON INJ 2 MG/ML 2 ML VIAL IV PRN (00:46)
[2024-05-08] MEDS ORDERED: CARBOHYDRATES FOR HYPOGLYCEMIA PO PRN (00:46)
--- NOTE | 2024-05-08 01:00 | XRay Report ---
EXAM: XR KUB/Abdomen 1 view CLINICAL HISTORY: post NG placement TECHNIQUE: X-ray images of the abdomen were obtained in AP position COMPARISON: 03/19/2024 cr chest FINDINGS: Nasogastric tube its tip at the left upper quadrant in proper position. Aortic stent. Circular dense structure at left upper quadrant could represent stomach band. Left shoulder replacement. Soft Tissues: Soft tissues of the upper abdomen appear normal without evidence of masses or calcifications. IMPRESSION: 1. Nasogastric tube(NG) in proper position. Interval new. 2. Otherwise no acute insult. Electronically signed by Monroe Mondragon 05-08-2024 12:57 AM
[2024-05-08 01:20] LABS: Magnesium 1.3 mg/dl (1.7-2.4); Phosphorus 3.4 mg/dl (2.5-4.9)
[2024-05-08] MEDS: POTASSIUM CHLORIDE 20 MEQ in SODIUM CHLORIDE 0.9% 1,000 ML IV SCH (02:42)
[2024-05-08] MEDS: MoRPHine SULFATE 2 MG/ML CARP IV PRN (02:42)
--- NOTE | 2024-05-08 03:34 | History & Physical Report ---
Date of Service May 07, 2024 Assessment & Plan (1) Bowel obstruction: Plan: Patient clinically presenting as a SBO, however, not noted on imaging. -Admit to medical with telemetry -Maintain NPO status -NGT to LIWS -Morphine PRN pain -Zofran PRN nausea -General Surgery consultation appreciated - patient and family clarified that, if needed, they would be open to surgical intervention as long as the surgery was not cancer related. (2) Atrial fibrillation: Plan: Chronic. Patient anticoagulated on Eliquis -Hold Eliquis while NPO -Lovenox 1mg/kg BID (3) Diabetes: Plan: Chronic. Last [id number]=2.9 on 09/13/23. Patient is on Tradjenta and Metformin outpatient -ISS -Goal blood sugar 110 - 140 (4) Hypertension: Plan: Blood pressure mildly elevated -Metoprolol 5mg IV q 6 hours scheduled -Continue to monitor Plan Anxiety -Continue Bupropion CHF -Continue Entresto -Hold Lasix -Metoprolol 5mg IV q 6 hours BPH -Continue Flomax F/E/N - NSS at 80mL/hr + 20mEq KCL, NPO for now Ppx - Lovenox 1mg/kg BID Code - Full Dispo -Admit to medical with telemetry History of Present Illness Chief Complaint: abdominal pain Primary Care Provider: Matty Colon MD Luís Murray is an 83yo male with history of Pancreatic cancer, CAD, AF on Eliquis anticoagulation, DM and HTN presenting with abdominal pain. Patient developed severe abdominal pain yesterday morning. Pain is sharp and severe, occurs intermittently and lasts several minutes. He has had associated nausea with multiple episodes of non-bloody/non-bilious emesis as well as abdominal distention. Patient had a normal BM yesterday but has not had a BM or passed any flatus today. He has not been able to tolerate PO intake. In the ER patient afebrile, HD stable NGT placed ER Course: Morphine 4mg IV x 2 Zofran 4mg NSS x 1L Allergies Allergy/AdvReac Type Severity Reaction Status Date / Time ciprofloxacin Allergy Intermediate Dysequilibr Verified 10/30/23 21:05 ium Home Medications Medication Instructions Recorded Confirmed Type apixaban 5 mg tablet (Eliquis) 5 mg PO BID 01/19/19 05/07/24 History multivitamin 1 tab PO QAM 01/19/19 05/07/24 History tamsulosin 0.4 mg capsule (Flomax) 0.4 mg PO QAM 04/06/19 05/07/24 History pravastatin 20 mg tablet 20 mg PO HS 11/08/21 05/07/24 History cholecalciferol (vitamin D3) 25 25 mcg PO QAM 08/02/22 05/07/24 History mcg (1,000 unit) tablet metoprolol succinate 25 mg 37.5 mg PO QPM 09/13/23 05/07/24 History tablet,extended release 24 hr tramadol 50 mg tablet 50 - 100 mg PO Q6H PRN Pain 09/13/23 05/07/24 History bupropion HCl 150 mg 24 hr tablet, 150 mg PO DAILY 05/07/24 05/07/24 History extended release cyclobenzaprine 5 mg tablet 5 mg PO HS PRN Spasms 05/07/24 05/07/24 History dutasteride 0.5 mg capsule 0.5 mg PO QAM 05/07/24 05/07/24 History furosemide 20 mg tablet 20 mg PO UD 05/07/24 05/08/24 History linagliptin 5 mg tablet (Tradjenta) 5 mg PO QAM 05/07/24 05/07/24 History ondansetron HCl 4 mg tablet 4 mg PO Q6 PRN Nausea 05/07/24 05/07/24 History sacubitril 24 mg-valsartan 26 mg 1 tab PO AMHS 05/07/24 05/07/24 History tablet (Entresto) metformin 500 mg tablet 1,000 mg PO BIDM 05/08/24 05/08/24 History Past Med/Surg History Problem List Bowel obstruction Elevated troponin Sepsis Altered mental status (Acute) Atrial fibrillation with RVR Altered mental status Hyperbilirubinemia Abnormal LFTs Chronic pancreatitis Painless jaundice (Acute) Encounter for pre-operative examination Severe aortic stenosis S/p TAVR 04/2019 Post-operative state (Acute 07/06/13) Post-operative state (Acute 08/17/13) Enlarged prostate Postoperative urinary retention Prostate nodule Complication, blocked Patrick catheter (Acute) Diarrhea (Acute) Elevated prostate specific antigen (PSA) Primary malignant neoplasm of prostate with high risk of recurrence due to Deangelo score of 8 to 10 and PSA greater than 20 Acute osteomyelitis of toe of right foot (Acute) Diabetic ulcer of toe of right foot (Acute) 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 foot ulcer CHF (congestive heart failure) History of aortic valve repair 04/2019- [facility] Arthritis 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 Medtronic [id number] Micra VR TCP Serial # [id number]- CHECKED REMOTELY 06/15/22 Hyponatremia (Acute) Atrial fibrillation follows w/ Dr Andrade- last visit 06/2022 on Eliquis Diabetes Hypertension Osteoarthritis of left shoulder region Hx of shoulder replacement Medical History CAD (coronary artery disease) 04/2019 cardiac cath showed 30% LAD lesion, large first diagonal branch with 60-70% narrowing, 40% mid segment narrowing of nondominant circumflex, 30% mid and distal RCA lesions Prostate cancer currently being treated, Dr Ashu MAN History of COVID-19 05/2022- fatigue; no hospitalized; resolved Surgical History History of transcatheter aortic valve replacement (TAVR) 04/2019- [facility] Hx of cardiac catheterization 04/2019 [facility]- no stents- aortic valve replacement done at [facility] History of permanent cardiac pacemaker placement AmyKenguru [id number] Micra VR TCP Serial # [id number] History of knee replacement Family History Brother Cancer 3 brothers/ prostate Other Family history non-contributory Social History Smoking Status: Never smoker Second Hand Exposure: No; Do You Dip or Chew Tobacco: No; Hx Alcohol Use: No Hx Substance Use: No Preferred Language: Grenadian Communication Ability: Effective Visual Impairment: No Limitations Hearing Ability: Normal 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 Beliefs That Will Affect Care: None marital status: Current Living Situation: Spouse Current Living Situation Comment: lives at home with current occupational status: retired 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 [employer] Feels Safe at Home: Yes Diet: regular Diet Comment: Diabetic diet caffeine: Yes during the past year weight has: remained stable Assistive Devices: Cane Review of Systems Review of Systems: All systems reviewed & are unremarkable except as noted in HPI & below Physical Exam Physical Exam: General: patient uncomfortable but in NAD Skin: warm, dry, intact, no rashes or lesions HEENT: NC/AT, PERRL, EOMI, anicteric sclera, conjunctiva without injection, external ear normal to inspection and nontender, nares patent, moist mucus membranes, dentition intact, no oropharyngeal lesions, neck supple, trachea midline, no LAD, no thyromegaly, no JVD Heart: +S1/S2, irregularly irregular, no m/r/g Lungs: equal air entry bilaterally, no rales/rhonchi/wheezes Abd: diminished bowel sounds, soft, distended and diffusely tender, ongoing nausea, NGT to be placed momentarily Ext: warm, 2+ pulses in UE/LE bilaterally, no clubbing/cyanosis or edema Neuro: nonfocal, patient AA&O x 4, speech intact, no facial droop, moving all extremities on command with equal strength 5/5 Results & Data Results & Data Vital Signs (Past 12 Hours) Vital Signs Temp Pulse Resp BP Pulse Ox O2 Del Method 05/07/24 22:30 105 H 22 158/102 H 93 05/07/24 22:00 101 H 22 138/112 H 90 05/07/24 21:33 108 H 18 119/98 95 05/07/24 20:57 107 H 24 128/73 96 05/07/24 20:35 105 H 05/07/24 20:20 36.8 C 110 H 18 148/124 H 92 Room Air Laboratory Results Laboratory Results WBC 7.50 K/ul (4.8-10.8) 05/07/24 20:24 RBC 4.21 M/uL (4.70-6.10) L 05/07/24 20:24 Hgb 13.4 g/dl (14.0-18.0) L 05/07/24 20:24 Hct 39.0 % (42.0-52.0) L 05/07/24 20:24 MCV 92.6 fL (80.0-100.0) 05/07/24 20:24 MCH 31.8 pg (25.0-34.0) 05/07/24 20: MCHC 34.4 g/dL (32.0-36.0) 05/07/24: RDW Std Deviation 43.9 fL (36.4-46.3) 05/07/24: RDW Coeff of Alec 13.0 % (11.5-14.5) 05/07/24: Plt Count 219 K/uL (130-400) 05/07/24: MPV 10.1 fL (9.4-12.4) 05/07/24 20: Immature Gran % (Auto) 0.3 % 05/07/24: Neut % (Auto) 56.5 % 05/07/24: Lymph % (Auto) 37.3 % 05/07/24: Chester % (Auto) 5.5 % 05/07/24: Eos % (Auto) 0.1 % 05/07/24: Baso % (Auto) 0.3 % 05/07/24: Neut # (Auto) 4.24 K/uL (1.40-6.50) 05/07/24: Lymph # (Auto) 2.80 K/uL (1.20-3.40) 05/07/24: Chester # (Auto) 0.41 K/uL (0.11-0.59) 05/07/24: Eos # (Auto) 0.01 K/uL (0.00-0.50) 05/07/24: Baso # (Auto) 0.02 K/uL (0.00-0.20) 05/07/24 20: Immature Gran # (Auto) 0.02 K/uL (0.01-0.20) 05/07/24 20: Sodium 139 mmol/L (136-145) 05/07/24 20: Potassium 3.4 mmol/L (3.5-5.1) L 05/07/24 20: Chloride 96 mmol/L (98-107) L 05/07/24 20: Carbon Dioxide 32 mmol/L (21-32) 05/07/24 20: Anion Gap 11 (3-11) 02/06/25 20:24 BUN 24 mg/dl (6-23) H 05/07/24 20:24 Creatinine 0.96 mg/dl (0.6-1.4) 05/07/24 20:24 Est Cr Clr Drug Dosing Not Reportable 05/07/24 20:24 eGFR 78.43 05/07/24 20:24 BUN/Creatinine Ratio 25.0 (10-20) H 05/07/24 20:24 Glucose 167 mg/dl (70-99(Fasting)) H 05/07/24 20:24 Calcium 9.1 mg/dl (8.6-10.3) 05/07/24 20:24 Phosphorus 3.4 mg/dl (2.5-4.9) 05/07/24 20:24 Magnesium 1.3 mg/dl (1.7-2.4) L 05/07/24 20:24 Total Bilirubin 0.4 mg/dl (0.2-1.0) 05/07/24 20:24 AST 23 U/L (13-39) 05/07/24 20:24 ALT 11 U/L (7-52) 05/07/24 20:24 Alkaline Phosphatase 89 U/L (34-104) 05/07/24 20:24 Total Protein 6.5 gm/dl (6.0-8.3) 05/07/24 20:24 Albumin 3.4 gm/dl (3.4-5.0) 05/07/24 20:24 Globulin 3.1 gm/dl (2.5-4.0) 05/07/24 20:24 Albumin/Globulin Ratio 1.1 (0.9-2) 05/07/24 20:24 Lipase 7 U/L (11-82) L 05/07/24 20:24 Impressions Abdomen/Pelvis CT 05/07/24 21:32 Exam(s): CT ABDOMEN + PELVIS With Contrast IV Amt: 93ml optiray 320 EXAM: CT Abdomen and Pelvis With Intravenous Contrast CLINICAL HISTORY: Reason for exam: abd pain, stomach stent/stomach cancer. TECHNIQUE: Axial computed tomography images of the abdomen and pelvis with intravenous contrast. Automated exposure control was utilized for the study. A dose lowering technique was utilized adhering to the principles of ALARA. CONTRAST: Patient received 93ml optiray 320 of IV contrast COMPARISON: Reference is made to MRCP dated 09/13/2023 FINDINGS: Lung bases: Unremarkable. No mass. No consolidation. Heart: Coronary artery calcifications. ABDOMEN: Liver: Unremarkable. No mass. Gallbladder and bile ducts: Cholelithiasis. Pneumobilia present secondary to a common bile duct stent. Distended urinary bladder. Pancreas: Marked pancreatic ductal dilatation with relatively extensive parenchymal atrophy involving the uncinate process body and tail of the pancreas. Spleen: Unremarkable. No splenomegaly. Adrenals: Unremarkable. No mass. Kidneys and ureters: Unremarkable. No solid mass. No hydronephrosis. Stomach and bowel: Unremarkable. No obstruction. No mucosal thickening. PELVIS: Appendix: No findings to suggest acute appendicitis. Bladder: Unremarkable. No mass. Reproductive: Unremarkable as visualized. ABDOMEN and PELVIS: Intraperitoneal space: Unremarkable. No free air. No significant fluid collection. Bones/joints: No acute fracture. No dislocation. Soft tissues: Unremarkable. Vasculature: Postoperative changes aortic valvular repair. Lymph nodes: Unremarkable. No enlarged lymph nodes. IMPRESSION: No acute findings in the abdomen or pelvis. Extensive pancreas ductal dilatation consistent with the patient's known history of IPMN Pneumobilia secondary to interval placement of a common bile duct stent Electronically signed by: Elia Cat MD 05/07/24 23:05 PM KUB X-Ray 05/08/24 00:15 EXAM: XR KUB/Abdomen 1 view CLINICAL HISTORY: post NG placement TECHNIQUE: X-ray images of the abdomen were obtained in AP position COMPARISON: 03/19/2024 cr chest FINDINGS: Nasogastric tube its tip at the left upper quadrant in proper position. Aortic stent. Circular dense structure at left upper quadrant could represent stomach band. Left shoulder replacement. Soft Tissues: Soft tissues of the upper abdomen appear normal without evidence of masses or calcifications. IMPRESSION: 1. Nasogastric tube(NG) in proper position. Interval new. 2. Otherwise no acute insult. Electronically signed by Monroe Mondragon 05-08-2024 12:57 AM ECG Additional Comments: AF with RVR, LBBB present - present on prior EKGs as well PG Care Time/CCT Total # of Minutes Spent Total Time Spent with Patient: Total time spent is greater than 50% in coordination of care (as documented) at patient's floor/unit and/or counseling patient: Coding Level of Care Code 83114 INT INP/OBS CARE 3/75MIN Diagnoses Bowel obstruction K56.609 Atrial fibrillation, unspecified type I48.91 Atrial fibrillation type: unspecified Type 2 diabetes mellitus without complication, without long-term current use of insulin E11.9 Diabetes mellitus type: type 2 Diabetes mellitus intermodal customer service insulin use: without intermodal customer service use Diabetes mellitus complication status: without complication Essential hypertension I10 Hypertension type: essential hypertension (2) Atrial fibrillation Atrial fibrillation type: unspecified Qualified Code(s): I48.91 - Unspecified atrial fibrillation (3) Diabetes Diabetes mellitus type: type 2 Diabetes mellitus detention insulin use: without detention use Diabetes mellitus complication status: without complication Qualified Code(s): E11.9 - Type 2 diabetes mellitus without complications (4) Hypertension Hypertension type: essential hypertension Qualified Code(s): I10 - Essential (primary) hypertension
[2024-05-08] MEDS: Patient's HEIGHT &/or WEIGHT Needed STA (03:58)
[2024-05-08] MEDS: APIXABAN 5 MG TABLET PO STA (04:00)
[2024-05-08] MEDS: ENOXAPARIN 80 MG/0.8 ML SYR SQ SCH (04:41)
[2024-05-08] MEDS: INSULIN ASPART PER UNIT CHARGE SC SCH (06:44)
[2024-05-08] MEDS: METOPROLOL TARTRATE 1 MG/ML VIAL IV SCH (06:49)
[2024-05-08] MEDS: MAGNESIUM SULFATE / D5W 1 GM/100 ML BAG IV SCH ×2 (07:45→11:59)
--- NOTE | 2024-05-08 07:52 | Surgery Consultation ---
Date of Consultation May 08, 2024 Assessment & Plan (1) Bowel obstruction: Patient with c/o of nausea/vomiting and abd pain that started in the AM. A prior admission on 08/2023 He was found to have a pancreatic head mass and was [place] [facility] [place] biliary stent [place]. An abd /pelvic CT scan is not reading concerns for SBO but notes: Extensive pancreas ductal dilatation consistent with the patient's known history of IPMN, Pneumobilia secondary to interval placement of a common bile duct stent. On exam the patient is resting in bed , NAD, denies abd pain at present time after administration of medication. Abdomen is soft , TTP throughout, no guarding. Noted reducible soft umbilical hernia. Reviewed CT imagining with [facility] radiology concerns for GOO, 2/2 pancreatic mass enlargement. Discussed case with on-call surgeon Dr Link and it is recommended that the patient be transferred to a tertiary care center for GI/Surgical intervention given the concern for GOO, 2/2 enlarging pancreatic mass. Agree with NGT for decompression and NPO IV Fluids for hydration IV antiemetic PRN IV analgesic PRN (2) Umbilical hernia without obstruction or gangrene: Supervising Physician Co-Signing Physician Notes Patient discussed with MARY, labs imaging reviewed, agree with above. History of pancreatic cancer status post biliary stent placement. CT personally viewed and interpreted and and note that there appears to be a gastric outlet obstruction from a pancreatic mass occluding good portion of the duodenum. Recommend NG tube, transfer to tertiary center for further evaluation. Not a candidate for surgery at this facility. History of Present Illness Reason for Consultation: SBO Requesting Physician: Dr Khan Attending Physician: Rebecca Casas MD History of Present Illness Patient is a pleasant 83 yo male with PMH of pancreatic CA, A Fib, severe aortic stenosis, jaundice, prostate CA, CHF, Diabetes, HTN, pacemaker , that presented to the [facility] ER last night 05/07/24 with c/o of nausea/vomiting and abd pain that started in the AM. He reports that he has never had an episode prior to this. A prior admission on 08/2023 He was found to have a pancreatic head mass and was transferred [place] [facility] [place] had a biliary stent placed. An abd /pelvic CT scan is not reading concerns for SBO but notes: Extensive pancreas ductal dilatation consistent with the patient's known history of IPMN, Pneumobilia secondary to interval placement of a common bile duct stent. Allergies Allergy/AdvReac Type Severity Reaction Status Date / Time ciprofloxacin Allergy Intermediate Dysequilibr Verified 10/30/23 21:05 ium Home Medications Medication Instructions Recorded Confirmed Type apixaban 5 mg tablet (Eliquis) 5 mg PO BID 01/19/19 05/07/24 History multivitamin 1 tab PO QAM 01/19/19 05/07/24 History tamsulosin 0.4 mg capsule (Flomax) 0.4 mg PO QAM 04/06/19 05/07/24 History pravastatin 20 mg tablet 20 mg PO HS 11/08/21 05/07/24 History cholecalciferol (vitamin D3) 25 25 mcg PO QAM 08/02/22 05/07/24 History mcg (1,000 unit) tablet metoprolol succinate 25 mg 37.5 mg PO QPM 09/13/23 05/07/24 History tablet,extended release 24 hr tramadol 50 mg tablet 50 - 100 mg PO Q6H PRN Pain 09/13/23 05/07/24 History bupropion HCl 150 mg 24 hr tablet, 150 mg PO DAILY 05/07/24 05/07/24 History extended release cyclobenzaprine 5 mg tablet 5 mg PO HS PRN Spasms 05/07/24 05/07/24 History dutasteride 0.5 mg capsule 0.5 mg PO QAM 05/07/24 05/07/24 History furosemide 20 mg tablet 20 mg PO UD 05/07/24 05/08/24 History linagliptin 5 mg tablet (Tradjenta) 5 mg PO QAM 05/07/24 05/07/24 History ondansetron HCl 4 mg tablet 4 mg PO Q6 PRN Nausea 05/07/24 05/07/24 History sacubitril 24 mg-valsartan 26 mg 1 tab PO AMHS 05/07/24 05/07/24 History tablet (Entresto) metformin 500 mg tablet 1,000 mg PO BIDM 05/08/24 05/08/24 History Patient History Medical History CAD (coronary artery disease) 04/2019 cardiac cath showed 30% LAD lesion, large first diagonal branch with 60-70% narrowing, 40% mid segment narrowing of nondominant circumflex, 30% mid and distal RCA lesions Prostate cancer currently being treated, Dr Ashu MAN History of COVID-19 05/2022- fatigue; no hospitalized; resolved Surgical History History of transcatheter aortic valve replacement ([place]AVR) [place] [facility] [place]x of cardiac catheterization 04/2019 [facility]- no stents- aortic valve replacement [place] [facility] History [place] permanent cardiac pacemaker placement Radha [id number] Micra VR TCP Serial # [id number] History of knee replacement Family History Brother Cancer 3 brothers/ prostate Other Family history non-contributory Social History Smoking Status: Never smoker Second Hand Exposure: No; Do You Dip or Chew Tobacco: No; Hx Alcohol Use: No Hx Substance Use: No Preferred Language: Maori Communication Ability: Effective Visual Impairment: No Limitations Hearing Ability: Normal Sequins Spooler Required: No Beliefs That Will Affect Care: None marital status: Current Living Situation: Spouse Current Living Situation Comment: lives at home with current occupational status: retired 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 Feels Safe at Home: Yes Diet: regular Diet Comment: Diabetic diet caffeine: Yes during the past year weight has: remained stable Assistive Devices: Cane and Walker Review of Systems Respiratory: no dyspnea Gastrointestinal: + abdominal pain, + nausea and + vomitin g Psychiatric: no confusion Physical Exam Constitutional: cooperative and comfortable; no acute distress Respiratory: normal respiratory effort and able to speak in complete sentenc es; no respiratory distress Cardiovascular: Rate/Rhythm: + tachycardic (92) Gastrointestinal (Abdomen): Inspection/Auscultation: + visible herniation (umbilical hernia , soft/ reducible ) Percussion/Palpation: + abdomen tender and abdomen soft; no guarding Psychiatric: A+Ox3, euthymic affect Results & Data Vital Signs (Past 12 Hours) Vital Signs Temp Pulse Resp BP Pulse Ox O2 Del Method O2 Flow Rate 05/08/24 07:33 92 H 128/84 05/08/24 06:10 113 H 05/08/24 02:16 108 H 21 144/97 H 98 Nasal Cannula 2 05/08/24 00:35 118 H 05/07/24 23:57 117 H 22 131/92 94 05/07/24 23:12 108 H 19 142/105 H 95 05/07/24 22:30 105 H 22 158/102 H 93 05/07/24 22:00 101 H 22 138/112 H 90 05/07/24 21:33 108 H 18 119/98 95 05/07/24 20:57 107 H 24 128/73 96 05/07/24 20:35 105 H 05/07/24 20:20 98.2 F 110 H 18 148/124 H 92 Room Air Diagnostic Findings [place], [place] [phone] CT Scan Report Patient: ALEJANDRA MTZ Admit Date: 05/07/24 MR#: [id number] Address1: [address] [place] [address] Acct ID:[id number] Address2: Date: 1940 [facility] Zip: [place] [address] Age: 83 Location: ED Sex: M Room/Bed: Att Phy: Diagnosis: AB PAIN, NAUSA, VOMITING [place] Phy: Bailee Colon MD Service Date: 05/07/24 [facility] Phy: Interpreting Phy: Elia Cat MDAdmit Phy: Ordering Phy: Ryan Khan MD cc: ~ Exam(s): CT ABDOMEN + PELVIS With Contrast IV Amt: 93ml optiray 320 EXAM: CT Abdomen and Pelvis With Intravenous Contrast CLINICAL HISTORY: Reason for exam: abd pain, stomach stent/stomach cancer. TECHNIQUE: Axial computed tomography images of the abdomen and pelvis with intravenous contrast. Automated exposure control was utilized for the study. A dose lowering technique was utilized adhering to the principles of ALARA. CONTRAST: Patient received 93ml optiray 320 of IV contrast COMPARISON: Reference is made to MRCP dated 09/13/2023 FINDINGS: Lung bases: Unremarkable. No mass. No consolidation. Heart: Coronary artery calcifications. ABDOMEN: Liver: Unremarkable. No mass. Gallbladder and bile ducts: Cholelithiasis. Pneumobilia present secondary to a common bile duct stent. Distended urinary bladder. Pancreas: Marked pancreatic ductal dilatation with relatively extensive parenchymal atrophy involving the uncinate process body and tail of the pancreas. Spleen: Unremarkable. No splenomegaly. Adrenals: Unremarkable. No mass. Kidneys and ureters: Unremarkable. No solid mass. No hydronephrosis. Stomach and bowel: Unremarkable. No obstruction. No mucosal thickening. PELVIS: Appendix: No findings to suggest acute appendicitis. Bladder: Unremarkable. No mass. Reproductive: Unremarkable as visualized. ABDOMEN and PELVIS: Intraperitoneal space: Unremarkable. No free air. No significant fluid collection. Bones/joints: No acute fracture. No dislocation. Soft tissues: Unremarkable. Vasculature: Postoperative changes aortic valvular repair. Lymph nodes: Unremarkable. No enlarged lymph nodes. IMPRESSION: No acute findings in the abdomen or pelvis. Extensive pancreas ductal dilatation consistent with the patient's known history of IPMN Pneumobilia secondary to interval placement of a common bile duct stent Electronically signed by: Elia Cat MD 05/07/24 23:05 PM Dictated: 05/07/242304 Transcribed: 05/07/242304 Results CBC w Diff Results: RBC 3.86 M/uL (4.70-6.10) L 05/08/24 WBC 7.92 K/ul (4.8-10.8) 05/08/24 Hgb 12.2 g/dl (14.0-18.0) L 05/08/24 Hct 35.7 % (42.0-52.0) L 05/08/24 MCV 92.5 fL (80.0-100.0) 05/08/24 MCH 31.6 pg (25.0-34.0) 05/08/24 MCHC 34.2 g/dL (32.0-36.0) 05/08/24 RDW Standard Deviation 43.8 fL (36.4-46.3) 05/08/24 RDW Coefficient of Variation 13.1 % (11.5-14.5) 05/08/24 Plt Count 165 K/uL (130-400) 05/08/24 MPV 9.2 fL (9.4-12.4) L 05/08/24 Neutrophils (%) (Auto) 56.5 % 05/07/24 Lymphocytes (%) (Auto) 37.3 % 05/07/24 Monocytes # (Auto) 0.41 K/uL (0.11-0.59) 05/07/24 Eosinophils # (Auto) 0.01 K/uL (0.00-0.50) 05/07/24 Immature Granulocyte % (Auto) 0.3 % 05/07/24 Neutrophils # (Auto) 4.24 K/uL (1.40-6.50) 05/07/24 Lymphocytes # (Auto) 2.80 K/uL (1.20-3.40) 05/07/24 Monocytes # (Auto) 0.41 K/uL (0.11-0.59) 05/07/24 Eosinophils # (Auto) 0.01 K/uL (0.00-0.50) 05/07/24 Basophils # (Auto) 0.02 K/uL (0.00-0.20) 05/07/24 Immature Granulocyte # (Auto) 0.02 K/uL (0.01-0.20) 5 Results CMP Results: Sodium 140 mmol/L (136-145) 05/08/24 Potassium 3.3 mmol/L (3.5-5.1) L 05/08/24 Chloride 102 mmol/L (98-107) 05/08/24 Carbon Dioxide 29 mmol/L (21-32) 05/08/24 Anion Gap 9 (3-11) 05/08/24 BUN 24 mg/dl (6-23) H 05/08/24 Creatinine 0.78 mg/dl (0.6-1.4) 05/08/24 eGFR 88.49 05/08/24 Est GFR ( Amer) 98.3 ml/min 10/31/23 Est GFR (Non-Af Amer) 84.8 ml/min 10/31/23 BUN/Creatinine Ratio 30.8 (10-20) H 05/08/24 Glucose 135 mg/dl (70-99(Fasting)) H 05/08/24 Calcium 8.7 mg/dl (8.6-10.3) 05/08/24 Phosphorus 3.4 mg/dl (2.5-4.9) 05/07/24 Total Bilirubin 0.4 mg/dl (0.2-1.0) 05/07/24 Direct Bilirubin 7.7 mg/dl (0-0.2) H 09/15/23 AST 23 U/L (13-39) 05/07/24 ALT 11 U/L (7-52) 05/07/24 Alkaline Phosphatase 89 U/L (34-104) 05/07/24 Total Protein 6.5 gm/dl (6.0-8.3) 05/07/24 Albumin 3.4 gm/dl (3.4-5.0) 05/07/24 Globulin 3.1 gm/dl (2.5-4.0) 05/07/24 Albumin/Globulin Ratio 1.1 (0.9-2) 05/07/24 PG Care Time/CCT Total # of Minutes Spent Total Time Spent with Patient: Total time spent is greater than 50% in coordination of care (as documented) at patient's floor/unit and/or counseling patient: Coding Level of Care Code 59397 INT INP/OBS CARE MIN Diagnoses Bowel obstruction K56.609 Umbilical hernia without obstruction or gangrene K42.9
--- NOTE | 2024-05-08 08:46 | Electrocardiogram Report ---
Test Reason : Blood Pressure : */* mmHG Vent. Rate : 110 BPM Atrial Rate : * BPM P-R Int : * ms QRS Dur : 140 ms QT Int : 366 ms P-R-T Axes : * 18 197 degrees QTcB Int : 495 ms Atrial fibrillation with rapid ventricular response with premature ventricular or aberrantly conducte d complexes Left bundle branch block Abnormal ECG When compared with ECG of 19-Mar-2024 12:47, QRS axis Shifted right Confirmed by Saúl Smith ([id number]) on 05/08/2024 8:45:59 AM Referred By: REFERRED SELF Confirmed By: Saúl Smith
[2024-05-08] MEDS ORDERED: VALSARTAN/SACUBITRIL 26/24MG TAB PO SCH (09:00)
[2024-05-08] MEDS ORDERED: buPROPion XL 150 MG TABCR PO SCH (09:00)
[2024-05-08] MEDS ORDERED: APIXABAN 5 MG TABLET PO SCH (09:00)
[2024-05-08] MEDS ORDERED: TAMSULOSIN HCL 0.4 MG CAP PO SCH (09:00)
[2024-05-08 09:16] LABS: Hematocrit (blood only) 35.7 % (42.0-52.0); Hemoglobin 12.2 g/dl (14.0-18.0); Mean Corpuscular Hemoglobin 31.6 pg (25.0-34.0); Mean Corpuscular Hgb Conc 34.2 g/dL (32.0-36.0); Mean Corpuscular Volume 92.5 fL (80.0-100.0); Mean Platelet Volume 9.2 fL (9.4-12.4); Platelet Count 165 K/uL (130-400); RDW Coefficient of Variation 13.1 % (11.5-14.5); RDW Standard Deviation 43.8 fL (36.4-46.3); Red Blood Count 3.86 M/uL (4.70-6.10); White Blood Count 7.92 K/ul (4.8-10.8)
[2024-05-08 09:41] LABS: BUN Creatinine Ratio 30.8 (10-20); Calcium 8.7 mg/dl (8.6-10.3); Creatinine Clr Calc Pharmacy 69.9 ml/min; Magnesium 1.6 mg/dl (1.7-2.4); Potassium 3.3 mmol/L (3.5-5.1)
[2024-05-08] MEDS: POTASSIUM CHLORIDE / WTR 10 MEQ/100 ML PLCT IV SCH (11:59)
[2024-05-08] MEDS: MoRPHine SULFATE 4 MG/ML 1 ML CARP\\VIAL IV PRN (13:07)
--- NOTE | 2024-05-08 14:39 | Discharge Summary ---
Discharge Summary Date of Service May 08, 2024 Principal Dx & Hospital Course #1 = Principal Diagnosis (1) Gastric outlet obstruction: 83 y/o man with pancreas cancer. History of biliary stent over the summer at [facility], permanent/metal stent placed by Dr. Grace December 2023. Admitted with intractable nasuea and vomiting. On CT found to have gastric outlet obstruction and enlarging pancreas mass. No SBO. General surgery consulted, recommended transfer for advanced GI since we do not have that capability here. Discussed with Dr. Grace who reviewed CT films, plans procedure Wednesday 05/10. Hopefully can have stenting to open, otherwise GJ. Currently stable with NG tube, IV morphine and ondansetron for nausea and pain. Emesis resovled with NG tube placement. Hypokalemia and hypomagnesemia currently under replacement. Recommend repeat K, Mag check this afternoon/evening after infusions completed. LFTs and lipase have been normal. Afib and blood pressure is controlled, stable on metoprolol 5 mg IV q6h scheduled dosing Afib All oral meds held. Apixaban held last dose was likely AM of 05/07. Currently enoxaparin 80 mg IV q12h, though strict bridging may not be necessary. Followed by palliative care at [facility] for his pancreas cancer. Medically not well enough for Whipple procedure. (2) Pancreatic cancer: (3) Diabetes: Chronic. Last [id number] on 09/13/23. Patient is on Tradjenta and Metformin outpatient -PRN aspart (4) Hypertension: Hypertensive on arrival, currently adequately controlled Plan Anxiety -held Bupropion History of Aortic stenosis, TAVR in 2019 Chronic systolic heart failure - stable - last Echo report available to me from 08/01/2021: EF 45% multiple hypokinetic LV segments, mod RV dilation, mild MR, mod TR, moderate pulmonary hypertension PAP 47 -lasix, entresto held BPH -Flomax held F/E/N - NSS at 80mL/hr + 20mEq KCL, NPO for now Ppx - Lovenox 1mg/kg BID Code - Full Admission HPI Per Admitting Provider Luís Murray is an 83yo male with history of Pancreatic cancer, CAD, AF on Eliquis anticoagulation, DM and HTN presenting with abdominal pain. Patient developed severe abdominal pain yesterday morning. Pain is sharp and severe, occurs intermittently and lasts several minutes. He has had associated nausea with multiple episodes of non-bloody/non-bilious emesis as well as abdominal distention. Patient had a normal BM yesterday but has not had a BM or passed any flatus today. He has not been able to tolerate PO intake. In the ER patient afebrile, HD stable NGT placed ER Course: Morphine 4mg IV x 2 Zofran 4mg NSS x 1L Discharge Exam PHYSICAL EXAMINATION Last 24h vital signs reviewed, see documentation in flowsheet General: no distress HEENT: Normocephalic, atraumatic, pupils round and equal, sclerae anicteric, no conjunctival injection, dry mucus membranes Lungs: Normal respiratory effort. Clear to auscultation bilaterally. No RRW Heart: irregular, no murmurs. No JVD Abdomen: Soft, nondistended, tender to palpation in epigastric area without rebound rigidity or guarding. NG tube in place Extremities: Warm, dry, well-perfused. No extremity edema. Neuro: Alert and oriented x 4, face symmetric, moves 4 extremities well Psych: Normal affect and behavior Discharge Plan Discharge Items Patient Disposition: Transfer Acute Care Hospital Reason For Visit: BOWEL OBSTRUCTION Discharge Diagnosis: Gastric outlet obstruction due to pancreas cancer Activity: As commented below Non-emergency contact: Primary Care Provider and Ultrasonic Welding Machine Operator Call non-emergency contact if: you have any medication questions and your symptoms worsen Follow-up/Referrals: Matty Colon MD [Primary Care Provider] - Diet: Other - See Diet Comment Diet Comment: NPO, currently NG tube Addtl Attending Provider Instructions: Gastric outlet obstruction due to enlarging pancreas cancer Dr. Grace plans procedure Wednesday 05/10 Apixban held NG tube to LIS Replaced potassium, magnesium IV Pending Studies at Discharge: No Stand-Alone Forms: [facility] Skilled Items Patient informed of condition?: Yes DNR: No Discharge Level of Care: Other Communicable Disease: No Discharge Prognosis: Stable Lines: Peripheral IV Urinary Catheter: No Medications and DC Order Prescriptions: New dextrose 50 % in water (D50W) Syringe 25 - 50 ml IV UD PRNQty: 0 0RF insulin aspart U-100 [Novolog U-100 Insulin aspart] 100 unit/mL Solution See Rx Instructions .ROUTE .COMPLEX Qty: 10 0RF Rx Instructions: . dextrose [Glutose-15] 40 % Gel 15 - 30 g PO UD PRNQty: 0 0RF morphine 2 mg/mL Syringe 2 mg IV Q3H PRNQty: 0 0RF morphine 4 mg/mL Syringe 4 mg IV Q3H PRNQty: 0 0RF metoprolol tartrate 5 mg/5 mL Solution 5 mg IV Q6 Qty: 0 0RF glucagon HCl 1 mg/mL Recon Soln 1 mg subcut UD PRNQty: 0 0RF ondansetron HCl (PF) 4 mg/2 mL Solution 4 mg IV Q6H PRNQty: 0 0RF enoxaparin [Lovenox] 80 mg/0.8 mL Syringe 80 mg subcut Q12H Qty: 0 0RF Held cholecalciferol (vitamin D3) 25 mcg (1,000 unit) tablet 25 mcg PO QAM Hold Instructions: Resume on 06/05/24. pravastatin 20 mg tablet 20 mg PO HS Hold Instructions: Resume on 06/05/24. Rx Instructions: HS multivitamin Tablet 1 tab PO QAM Hold Instructions: Resume on 06/05/24. Eliquis 5 mg tablet 5 mg PO BID Hold Instructions: Resume on 06/05/24. Rx Instructions: needs pm dose tamsulosin [Flomax] 0.4 mg Capsule 0.4 mg PO QAM Hold Instructions: Resume on 06/05/24. tramadol 50 mg tablet 50 - 100 mg PO Q6H MDD 400mg - daily PRN (Reason: Pain) Hold Instructions: Resume on 06/05/24. metoprolol succinate 25 mg tablet extended release 24 hr 37.5 mg PO QPM Hold Instructions: Resume on 06/05/24. ondansetron HCl 4 mg tablet 4 mg PO Q6 PRN (Reason: Nausea) Hold Instructions: Resume on 06/05/24. bupropion HCl 150 mg tablet extended release 24 hr 150 mg PO DAILY Hold Instructions: Resume on 06/05/24. dutasteride 0.5 mg capsule 0.5 mg PO QAM Hold Instructions: Resume on 06/05/24. Tradjenta 5 mg tablet 5 mg PO QAM Hold Instructions: Resume on 06/05/24. cyclobenzaprine 5 mg tablet 5 mg PO HS PRN (Reason: Spasms) Hold Instructions: Resume on 06/05/24. sacubitril-valsartan [Entresto] 24-26 mg tablet 1 tab PO AMHS Hold Instructions: Resume on 06/05/24. furosemide 20 mg Tablet 20 mg PO UD Hold Instructions: Resume on 06/05/24. metformin 500 mg tablet 1,000 mg PO BIDM Hold Instructions: Resume on 06/05/24. Rx Instructions: take with noon and evening meal Discharge Orders: Discharge Order (Routine); Ordered 05/08/24 Ordered By: Rebecca Casas Admission Data Admit Date/Time: 05/07/24 23:53 Attending Provider: Rebecca Casas Admit Provider: An Peterson Primary Care Provider: Matty Colon. Other Providers: [place] Gama; An Peterson Hospital Stay Data Consultations 05/07/24 23:14 Consult General Surgery Routine ED Decision to Admit Stat 05/07/24 23:53 Consult General Surgery Routine Diagnostic Imagining Performed 05/07/24 21:32 CT abd pelvis IV con only Stat Abdomen/Pelvis CT 05/07/24 21:32 Exam(s): CT ABDOMEN + PELVIS With Contrast IV Amt: 93ml optiray 320 EXAM: CT Abdomen and Pelvis With Intravenous Contrast CLINICAL HISTORY: Reason for exam: abd pain, stomach stent/stomach cancer. TECHNIQUE: Axial computed tomography images of the abdomen and pelvis with intravenous contrast. Automated exposure control was utilized for the study. A dose lowering technique was utilized adhering to the principles of ALARA. CONTRAST: Patient received 93ml optiray 320 of IV contrast COMPARISON: Reference is made to MRCP dated 09/13/2023 FINDINGS: Lung bases: Unremarkable. No mass. No consolidation. Heart: Coronary artery calcifications. ABDOMEN: Liver: Unremarkable. No mass. Gallbladder and bile ducts: Cholelithiasis. Pneumobilia present secondary to a common bile duct stent. Distended urinary bladder. Pancreas: Marked pancreatic ductal dilatation with relatively extensive parenchymal atrophy involving the uncinate process body and tail of the pancreas. Spleen: Unremarkable. No splenomegaly. Adrenals: Unremarkable. No mass. Kidneys and ureters: Unremarkable. No solid mass. No hydronephrosis. Stomach and bowel: Unremarkable. No obstruction. No mucosal thickening. PELVIS: Appendix: No findings to suggest acute appendicitis. Bladder: Unremarkable. No mass. Reproductive: Unremarkable as visualized. ABDOMEN and PELVIS: Intraperitoneal space: Unremarkable. No free air. No significant fluid collection. Bones/joints: No acute fracture. No dislocation. Soft tissues: Unremarkable. Vasculature: Postoperative changes aortic valvular repair. Lymph nodes: Unremarkable. No enlarged lymph nodes. IMPRESSION: No acute findings in the abdomen or pelvis. Extensive pancreas ductal dilatation consistent with the patient's known history of IPMN Pneumobilia secondary to interval placement of a common bile duct stent Electronically signed by: Elia Cat MD 05/07/24 23:05 PM KUB X-Ray 05/08/24 00:15 EXAM: XR KUB/Abdomen 1 view CLINICAL HISTORY: post NG placement TECHNIQUE: X-ray images of the abdomen were obtained in AP position COMPARISON: 03/19/2024 cr chest FINDINGS: Nasogastric tube its tip at the left upper quadrant in proper position. Aortic stent. Circular dense structure at left upper quadrant could represent stomach band. Left shoulder replacement. Soft Tissues: Soft tissues of the upper abdomen appear normal without evidence of masses or calcifications. IMPRESSION: 1. Nasogastric tube(NG) in proper position. Interval new. 2. Otherwise no acute insult. Electronically signed by Monroe Mondragon 05-08-2024 12:57 AM 05/08/24 05/08/24 05/08/24 Range/Units 12:40 08:57 06:41 WBC 7.92 (4.8-10.8) K/ul RBC 3.86 L (4.70-6.10) M/uL Hgb 12.2 L (14.0-18.0) g/dl Hct 35.7 L (42.0-52.0) % MCV 92.5 (80.0-100.0) fL MCH 31.6 (25.0-34.0) pg MCHC 34.2 (32.0-36.0) g/dL RDW Std Deviation 43.8 (36.4-46.3) fL RDW Coeff of Alec 13.1 (11.5-14.5) % Plt Count 165 (130-400) K/uL MPV 9.2 L (9.4-12.4) fL Immature Gran % (Auto) % Neut % (Auto) % Lymph % (Auto) % Spalding % (Auto) % Eos % (Auto) % Baso % (Auto) % Neut # (Auto) (1.40-6.50) K/uL Lymph # (Auto) (1.20-3.40) K/uL Spalding # (Auto) (0.11-0.59) K/uL Eos # (Auto) (0.00-0.50) K/uL Baso # (Auto) (0.00-0.20) K/uL Immature Gran # (Auto) (0.01-0.20) K/uL Sodium 140 (136-145) mmol/L Potassium 3.3 L (3.5-5.1) mmol/L Chloride 102 (98-107) mmol/L Carbon Dioxide 29 (21-32) mmol/L Anion Gap 9 (3-11) BUN 24 H (6-23) mg/dl Creatinine 0.78 (0.6-1.4) mg/dl Est Cr Clr Drug Dosing 69.9 eGFR 88.49 BUN/Creatinine Ratio 30.8 H (10-20) Glucose 135 H (70-99(Fasting)) mg/dl POC Glucose 136 H 120 H (70-99) mg/dl Calcium 8.7 (8.6-10.3) mg/dl Phosphorus (2.5-4.9) mg/dl Magnesium 1.6 L (1.7-2.4) mg/dl Total Bilirubin (0.2-1.0) mg/dl AST (13-39) U/L ALT (7-52) U/L Alkaline Phosphatase (34-104) U/L Total Protein (6.0-8.3) gm/dl Albumin (3.4-5.0) gm/dl Globulin (2.5-4.0) gm/dl Albumin/Globulin Ratio (0.9-2) Lipase (11-82) U/L 05/07/24 Range/Units 20:24 WBC 7.50 (4.8-10.8) K/ul RBC 4.21 L (4.70-6.10) M/uL Hgb 13.4 L (14.0-18.0) g/dl Hct 39.0 L (42.0-52.0) % MCV 92.6 (80.0-100.0) fL MCH 31.8 (25.0-34.0) pg MCHC 34.4 (32.0-36.0) g/dL RDW Std Deviation 43.9 (36.4-46.3) fL RDW Coeff of Alec 13.0 (11.5-14.5) % Plt Count 219 (130-400) K/uL MPV 10.1 (9.4-12.4) fL Immature Gran % (Auto) 0.3 % Neut % (Auto) 56.5 % Lymph % (Auto) 37.3 % Spalding % (Auto) 5.5 % Eos % (Auto) 0.1 % Baso % (Auto) 0.3 % Neut # (Auto) 4.24 (1.40-6.50) K/uL Lymph # (Auto) 2.80 (1.20-3.40) K/uL Spalding # (Auto) 0.41 (0.11-0.59) K/uL Eos # (Auto) 0.01 (0.00-0.50) K/uL Baso # (Auto) 0.02 (0.00-0.20) K/uL Immature Gran # (Auto) 0.02 (0.01-0.20) K/uL Sodium 139 (136-145) mmol/L Potassium 3.4 L (3.5-5.1) mmol/L Chloride 96 L (98-107) mmol/L Carbon Dioxide 32 (21-32) mmol/L Anion Gap 11 (3-11) BUN 24 H (6-23) mg/dl Creatinine 0.96 (0.6-1.4) mg/dl Est Cr Clr Drug Dosing Not Reportable eGFR 78.43 BUN/Creatinine Ratio 25.0 H (10-20) Glucose 167 H (70-99(Fasting)) mg/dl POC Glucose (70-99) mg/dl Calcium 9.1 (8.6-10.3) mg/dl Phosphorus 3.4 (2.5-4.9) mg/dl Magnesium 1.3 L (1.7-2.4) mg/dl Total Bilirubin 0.4 (0.2-1.0) mg/dl AST 23 (13-39) U/L ALT 11 (7-52) U/L Alkaline Phosphatase 89 (34-104) U/L Total Protein 6.5 (6.0-8.3) gm/dl Albumin 3.4 (3.4-5.0) gm/dl Globulin 3.1 (2.5-4.0) gm/dl Albumin/Globulin Ratio 1.1 (0.9-2) Lipase 7 L (11-82) U/L Current Inpatient Medications Bupropion HCl (Bupropion Xl 150 Mg Tabcr) 150 mg PO DAILY MANJIT Stop: 06/07/24 08:59 Dextrose (Dextrose 50% 50 Ml Syringe) 25 - 50 ml IV UD PRN; Protocol PRN Reason: Hypoglycemia Protocol Stop: 06/07/24 00:45 Enoxaparin Sodium (Enoxaparin 80 Mg/0.8 Ml Syr) 80 mg SQ Q12H MANJIT Stop: 06/07/24 03:59 Last Admin: 05/08/24 04:41 Dose: 80 mg Glucagon (Glucagon For Inj 1 Mg Vial) 1 mg SQ UD PRN; Protocol PRN Reason: Hypoglycemia Protocol Stop: 06/07/24 00:45 Glucose (Glucose 40% Gel 15 Gm Tube) 15 - 30 gm PO UD PRN; Protocol PRN Reason: Hypoglycemia Protocol Stop: 06/07/24 00:45 Glucose (Glucose 10 Tab/Tube) 4 - 8 tab PO UD PRN; Protocol PRN Reason: Hypoglycemia Protocol Stop: 06/07/24 00:45 Potassium Chloride 20 meq/ (Sodium Chloride) 1,010 mls @ 80 mls/hr IV .[id number] MANJIT Stop: 05/09/24 02:00 Last Admin: 05/08/24 02:42 Dose: 80 mls/hr Insulin Aspart (Insulin Aspart Per Unit Charge) 0 units SC Q6 MANJIT Stop: 06/07/24 05:59 Last Admin: 05/08/24 12:53 Dose: Not Given Metoprolol Tartrate (Metoprolol Tartrate 1 Mg/Ml Vial) 5 mg IV Q6 MANJIT Stop: 06/07/24 05:59 Last Admin: 05/08/24 12:46 Dose: 5 mg Miscellaneous (Carbohydrates For Hypoglycemia ) 15 - 30 gm PO UD PRN PRN Reason: Hypoglycemia Protocol Stop: 06/07/24 00:45 Morphine Sulfate (Morphine Sulfate 2 Mg/Ml Carp) 2 mg IV Q3H PRN PRN Reason: Pain (1,2,3,4,5) & Pre PT Stop: 05/22/24 00:45 Last Admin: 05/08/24 09:25 Dose: 2 mg Morphine Sulfate (Morphine Sulfate 4 Mg/Ml 1 Ml Carp\Vial) 4 mg IV Q3H PRN PRN Reason: Pain (6,7,8,9,10) Stop: 05/22/24 00:45 Last Admin: 05/08/24 13:07 Dose: 4 mg Ondansetron HCl (Ondansetron Inj 2 Mg/Ml 2 Ml Vial) 4 mg IV Q6H PRN PRN Reason: Nausea And Vomiting Stop: 06/07/24 00:45 Sacubitril/Valsartan (Valsartan/Sacubitril 26/24mg Tab) 1 tab PO AMHS [facility] Stop: 06/07/24 08:59 Tamsulosin HCl (Tamsulosin Hcl 0.4 Mg Cap) 0.4 mg PO QAM [facility] Stop: 06/07/24 08:59 Pending Results Patient Have Any Pending Studies at Discharge: No Discharge Instructions Given to Patient (Per Discharging Provider) Gastric outlet obstruction due to enlarging pancreas cancer Dr. Grace plans procedure Wednesday 05/10 Apixban held NG tube to LIS Replaced potassium, magnesium IV Total Time Total Time Spent Total Time Spent (In Minutes): I personally spent: 75 minutes today on clinical care activities including: reviewing chart notes and vital signs reviewing labs reviewing studies discussion with nutrition consultant(s) - general surgeon, chess instructor discussion with transfer center, arranging transfer examining and counseling the patient - several visits today counseling the patient's family - I spoke with his , daughter, and his son writing orders, discharge orders documentation Coding Level of Care Code 84657 INP/OBS DISCH >30 MIN Diagnoses Gastric outlet obstruction K31.1 Pancreatic cancer C25.9 Type 2 diabetes mellitus without complication, without long-term current use of insulin E11.9 Diabetes mellitus type: type 2 Diabetes mellitus halfway insulin use: without watermelon inspector use Diabetes mellitus complication status: without complication Essential hypertension I10 Hypertension type: essential hypertension
[2024-05-09 04:00] VITALS: TEMP 97.7
[2024-05-09] MEDS: NSS + 20MEQ KCL 20 MEQ/1,000 ML BAG IV SCH (04:53)
[2024-05-09 04:56] LABS: Hematocrit (blood only) 37.8 % (42.0-52.0); Hemoglobin 12.7 g/dl (14.0-18.0); Mean Corpuscular Hemoglobin 31.8 pg (25.0-34.0); Mean Corpuscular Hgb Conc 33.6 g/dL (32.0-36.0); Mean Corpuscular Volume 94.5 fL (80.0-100.0); Mean Platelet Volume 9.1 fL (9.4-12.4); Platelet Count 173 K/uL (130-400); RDW Coefficient of Variation 13.2 % (11.5-14.5); RDW Standard Deviation 45.4 fL (36.4-46.3); White Blood Count 8.07 K/ul (4.8-10.8)
[2024-05-09 05:12] LABS: BUN Creatinine Ratio 27.2 (10-20); Creatinine Clr Calc Pharmacy 67.3 ml/min; Magnesium 1.8 mg/dl (1.7-2.4); Potassium 3.9 mmol/L (3.5-5.1)
[2024-05-09 07:46] LABS: Bilirubin,Total 0.3 mg/dl (0.2-1.0); Total Protein 5.6 gm/dl (6.0-8.3)
--- NOTE | 2024-05-09 08:26 | XRay Report ---
KUB HISTORY: gastric outlet obstruction COMPARISON: KUB to 725, CT 05/07/2024 FINDINGS: Aortic valvular endograft. Right upper quadrant stent. Distal tip of enteric tube projects over the expected location of the proximal stomach. Contrast in the urinary bladder lumen. Surgical c lips project over the pelvis. Soft tissue swelling within the region of the right scrotum. Nonobstruc tive bowel gas pattern No renal calculi. No ureteral calculi. No pneumoperitoneum or pneumatosis. No fracture. IMPRESSION: 1. Distal tip of enteric tube noted in the expected location of the proximal stomach. 2. Nonobstructive bowel gas pattern. ACT 112: Negative or not required by law. The above report was generated using voice recognition software. It may contain grammatical, syntax o r spelling errors. Electronically signed by: Maxim Adkins M.D. 05/09/2024 8:25 AM
[2024-05-09] MEDS ORDERED: MAGNESIUM SULFATE / D5W 1 GM/100 ML BAG IV SCH (09:30)
[2024-05-09 10:05] VITALS: BP 132/89; PULSE 114; RESP 22; O2SAT 92
== END 2024-05-09 10:04 | disposition short-term general hospital (02) | DRG 381 ==
LOC: ED 20:13 → SUATTDRO 23:53 → EDINP 23:53